=== PATIENT | female | born 1970 | race Caucasian/White ===

== ENCOUNTER 2016-12-06 01:35 | Inpatient (IN) | payer MEDICAID, MEDICARE ==
[2016-12-05] MEDS: SODIUM CHLOR 0.9% 1000 ML INJ 1,000 ML IV SCH (22:20)
[2016-12-06] VITALS (18 sets, daily range): BP systolic 114–195; BP diastolic 75–98; PULSE 115–167; RESP 18–20; TEMP 100.9–103.1; O2SAT 94–100
[~2016-12-06] VITALS: Ht 167.6 cm; Wt 74.0 kg
[2016-12-06] MEDS ORDERED: IOHEXOL 350 MG/ML 10 ML VIAL (for RAD DIAG) IVCONTRAST ONE (01:36)
[2016-12-06] MEDS ORDERED: ACETAMINOPHEN 650 MG SUPP RECTAL ONE (02:00)
[2016-12-06] MEDS ORDERED: SODIUM CHLOR 0.9% 1000 ML INJ 1,000 ML IV ONE ×2 (02:00→03:53)
[2016-12-06] MEDS ORDERED: VANCOMYCIN INJ 1,000 MG in SODIUM CHLOR 0.9% 250 ML INJ 250 ML IV ONE (02:00)
[2016-12-06] MEDS ORDERED: PIPERACIL-TAZO 3.375 GM PREMIX 50 ML IV ONE (02:00)
[2016-12-06 02:11] LABS: AUTOMATED NEUTROPHIL # 12.7 TH/MM3 (1.8-7.7); BASOPHIL # 0.1 TH/MM3 (0-0.2); BASOPHIL % 0.6 % (0.0-2.0); EOSINOPHIL # 0.1 TH/MM3 (0-0.4); EOSINOPHIL % 0.8 % (0.0-4.0); HEMATOCRIT 36.1 % (35.0-46.0); HEMO FLAGS DIFF FINAL; LYMPH % 9.1 % (9.0-44.0); LYMPHOCYTE # 1.4 TH/MM3 (1.0-4.8); MEAN CORPUSCULAR HEMOGLOBIN 23.8 PG (27.0-34.0); MONO % 3.9 % (0.0-8.0); NEUT % 85.6 % (16.0-70.0); PLATELET COUNT 346 TH/MM3 (150-450); RED BLOOD COUNT 4.69 MIL/MM3 (4.00-5.30); RED CELL DISTRIBUTION WIDTH 17.5 % (11.6-17.2); WHITE BLOOD COUNT 14.9 TH/MM3 (4.0-11.0)
--- NOTE | 2016-12-06 02:20 | PD ---
HPI Chief Complaint: Altered Mental Status Time Seen by Provider: 02:00 Travel History International Travel<30 days: No Contact w/Intl Traveler<30days: No Traveled to known affect area: No History of Present Illness HPI The patient is a 46 year old female who presents to the [facility] emergency department with a history of altered mentation that began yesterday evening. The patient is unable to provide any history as she is agitated and screaming. The patient was seen at [facility] according to ambulance services. The setter helper are not sure what the patient was diagnosed with, however the patient was discharged home. Ambulance services report that the patient has a history of recurrent urinary tract infections and becomes agitated and altered when she has one. The patient was noted to have a fever prior to arrival by ambulance services of 102.4. The patient's blood sugar was noted to be 115. The patient is unable or unwilling at this time to state her name or what her acute complaint is currently. The patient's family is reportedly on the way to the emergency department to provide some history. The patient's history is obtained from reviewing the electronic medical record as well as from ambulance services. Upon the patient's family's arrival they report that the patient has been altered since yesterday evening. They report that they went to the emergency department yesterday evening. The emergency department was unable to obtain IV access, therefore no laboratory studies were done. The patient's mentation seemed to be improving according to the family and the emergency department physician, therefore the patient was discharged home. An hour after arriving back home the patient became agitated and progressively confused. The patient' s family reports that this has happened 3 times in the past related to sepsis. 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 [facility] Past Medical History Narrative Medical the patient's past medical history is significant for multiple sclerosis, rheumatoid arthritis, history of sepsis related to urinary tract infections, osteoporosis, cerebrovascular accident, and anemia Medical History: Unable to Obtain ?: Unknown Past Surgical History Narrative Surgical The patient's past surgical history is significant for a history of cervical spine fusion Surgical History: Unable to Obtain Social History Alcohol Use: No (unable to obtain) Tobacco Use: No (unable to obtain) Substance Use: No Allergies-Medications (Allergen,Severity, Reaction): Coded Allergies: No Known Allergies (Unverified , 12/06/16) Review of Systems ROS Limitations: Poor Historian Except as stated in HPI: all other systems reviewed are Neg General / Constitutional: Positive: Fever Eyes: No: Visual changes HENT: No: Headaches Cardiovascular: No: Chest Pain or Discomfort Respiratory: No: Shortness of Breath Gastrointestinal: No: Abdominal Pain Genitourinary: No: Dysuria Musculoskeletal: No: Pain Skin: No Rash Neurologic: Positive: Change in Mentation, No: Weakness Psychiatric: No: Depression Endocrine: No: Polydipsia Hematologic/Lymphatic: No: Easy Bruising Physical Exam Narrative General: The patient is a well-developed well-nourished female, agitated on arrival, screaming, cursing. Head and Neck exam: Head is normocephalic atraumatic. Eyes: Pupils are equal round and reactive to light. The patient is noted to have ptosis of the left eyelid. The patient is uncooperative with extraocular motion testing, however she is moving her eyes with conjugate gaze all around the room Nose: Midline septum with pink mucous membranes Mouth: Dentition unremarkable. Tacky mucus membranes. Posterior oropharynx is not erythematous. No tonsillar hypertrophy. Uvula midline. Airway patent. Neck: No palpable lymphadenopathy. No nuchal rigidity. No thyromegaly. Cardiovascular: Sinus tachycardia in the 140s without murmurs, gallops, or rubs. No pulse deficit to the extremities and simultaneous auscultation and palpation of her radial artery. Lungs: Clear to auscultation bilaterally. No wheezes, rhonchi, or rales. Abdomen: Soft, with suprapubic prominence suspicious for bladder distention, no other tenderness on palpation of the other quadrants of the abdomen. Normal bowel sounds are audible. No guarding, rebound, or rigidity. No tenderness specifically on palpation of McBurney's point. Extremities: No clubbing, cyanosis, or edema. 2+ pulses in all 4 extremities. The patient has extremely dry skin on exam. The patient is noted to have an area of ulceration along the left lateral lower leg below the knee between the knee and the ankle that is 1 x 1.5 cm with a yellow discharge that was cultured. Back: No spinous process tenderness to palpation. The patient appears to have CVA tenderness bilaterally on examination. 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 The patient has ptosis of the left eyelid, some facial asymmetry with a prior history of stroke which ambulance services report that the patient has a history of. Skin Exam: Skin is warm and dry. Data Data Last Documented VS Vital Signs Date Time Temp Pulse Resp B/P (MAP) Pulse Ox O2 Delivery O2 Flow Rate FiO2 12/06/16 03:54 102.6 124 20 189/81 (117) 100 Room Air Orders Orders Electrocardiogram (12/06/16 02:00) Complete Blood Count With Diff (12/06/16 02:00) Comprehensive Metabolic Panel (12/06/16 02:00) Creatine Kinase (Cpk) (12/06/16 02:00) Ckmb (Isoenzyme) Profile (12/06/16 02:00) Troponin I (12/06/16 02:00) B-Type Natriuretic Peptide (12/06/16 02:00) Prothrombin Time / Inr (Pt) (12/06/16 02:00) Act Partial Throm Time (Ptt) (12/06/16 02:00) Blood Culture (12/06/16 02:00) C-Reactive Protein (Crp) (12/06/16 02:00) Lipase (12/06/16 02:00) Urinalysis - C+S If Indicated (12/06/16 02:00) Magnesium (Mg) (12/06/16 02:00) Ammonia (12/06/16 02:00) Thyroid Stimulating Hormone (12/06/16 02:00) Chest, Single Ap (12/06/16 02:00) Ct Brain W/O Iv Contrast(Rout) (12/06/16 02:00) Iv Access Insert/Monitor (12/06/16 02:00) Ecg Monitoring (12/06/16 02:00) Oximetry (12/06/16 02:00) Ed Urine Pregnancytest Poc (12/06/16 02:00) Drug Screen, Random Urine (12/06/16 02:00) Alcohol (Ethanol) (12/06/16 02:00) Lactic Acid Sepsis Protocol (12/06/16 02:00) Ct Abd/Pel W Iv Contrast(Rout) (12/06/16 ) Sodium Chlor 0.9% 1000 Ml Inj (Ns 1000 M (12/06/16 02:00) Acetaminophen Supp (Tylenol Supp) (12/06/16 02:00) Piperacil-Tazo 3.375 Gm Premix (Zosyn 3. (12/06/16 02:00) Vancomycin Inj (Vancomycin Inj) (12/06/16 02:00) Lorazepam Inj (Ativan Inj) (12/06/16 03:15) Iohexol 350 Inj (Omnipaque 350 Inj) (12/06/16 01:36) Sodium Chlor 0.9% 1000 Ml Inj (Ns 1000 M (12/06/16 03:53) Sodium Chlor 0.9% 1000 Ml Inj (Ns 1000 M (12/06/16 03:53) Admit Order (Ed Use Only) (12/06/16 04:22) Labs Laboratory Tests Test 12/06/16 01:55 12/06/16 02:10 12/06/16 04:06 White Blood Count 14.9 TH/MM3 Red Blood Count 4.69 MIL/MM3 Hemoglobin 11.2 GM/DL Hematocrit 36.1 % Mean Corpuscular Volume 77.0 FL Mean Corpuscular Hemoglobin 23.8 PG Mean Corpuscular Hemoglobin Concent 31.0 % Red Cell Distribution Width 17.5 % Platelet Count 346 TH/MM3 Mean Platelet Volume 7.7 FL Neutrophils (%) (Auto) 85.6 % Lymphocytes (%) (Auto) 9.1 % Monocytes (%) (Auto) 3.9 % Eosinophils (%) (Auto) 0.8 % Basophils (%) (Auto) 0.6 % Neutrophils # (Auto) 12.7 TH/MM3 Lymphocytes # (Auto) 1.4 TH/MM3 Monocytes # (Auto) 0.6 TH/MM3 Eosinophils # (Auto) 0.1 TH/MM3 Basophils # (Auto) 0.1 TH/MM3 CBC Comment DIFF FINAL Differential Comment Blood Urea Nitrogen 7 MG/DL Creatinine 0.57 MG/DL Random Glucose 109 MG/DL Total Protein 6.4 GM/DL Albumin 2.9 GM/DL Calcium Level 8.6 MG/DL Magnesium Level 1.5 MG/DL Alkaline Phosphatase 103 U/L Aspartate Amino Transf (AST/SGOT) 14 U/L Alanine Aminotransferase (ALT/SGPT) 15 U/L Total Bilirubin 0.3 MG/DL Sodium Level 134 MEQ/L Potassium Level 3.7 MEQ/L Chloride Level 102 MEQ/L Carbon Dioxide Level 21.3 MEQ/L Anion Gap 11 MEQ/L Estimat Glomerular Filtration Rate 114 ML/MIN Total Creatine Kinase 62 U/L Troponin I LESS THAN 0.02 NG/ML C-Reactive Protein 5.67 MG/DL B-Type Natriuretic Peptide 92 PG/ML Lipase 54 U/L Thyroid Stimulating Hormone 3rd Gen 3.820 uIU/ML Ethyl Alcohol Level LESS THAN 3 MG/DL Prothrombin Time 9.7 SEC Prothromb Time International Ratio 0.9 RATIO Activated Partial Thromboplast Time 25.0 SEC Urine Color LIGHT-YELLOW Urine Turbidity CLEAR Urine pH 7.5 Urine Specific [place] 1.004 Urine Protein 30 mg/dL Urine Glucose (UA) NEG mg/dL Urine Ketones 10 mg/dL Urine Occult Blood NEG Urine Nitrite NEG Urine Bilirubin NEG Urine Urobilinogen LESS THAN 2.0 MG/DL Urine Leukocyte Esterase NEG Urine RBC 4 /hpf Urine WBC 1 /hpf Urine Bacteria RARE /hpf Microscopic Urinalysis Comment CULT NOT INDICATED Lactic Acid Level 3.6 mmol/L 2.2 mmol/L Ammonia 17 MCMOL/L Urine Opiates Screen NEG Urine Barbiturates Screen NEG Urine Amphetamines Screen NEG Urine Benzodiazepines Screen NEG Urine Cocaine Screen NEG Urine Cannabinoids Screen NEG MDM Medical Decision Making Medical Screen Exam Complete: Yes Emergency Medical Condition: Yes Medical Record Reviewed: Yes Interpretation(s) Last Impressions Head CT 12/06/16199 Signed Impressions: Service Date/Time: Tuesday, December 06, 2016 03:15 - CONCLUSION: Motion degraded exam showing moderate white matter hypodensity of undetermined chronicity. Marcus Buchanan MD Chest X-Ray 12/06/16 020 Signed Impressions: Service Date/Time: Tuesday, December 06, 2016 01:56 - CONCLUSION: No acute cardiopulmonary disease Marcus Buchanan MD Neck Ultrasound 12/06/16 0000 Signed Impressions: Service Date/Time: Tuesday, December 06, 2016 08:06 - CONCLUSION: No abscess observed. Ultrasound evaluation for an abscess in this area is very difficult and an abscess can easily be occult by ultrasound evaluation. CT or MRI is more sensitive. Mukul Gary Jr., MD Abdomen/Pelvis CT 12/06/16 0000 Signed Impressions: Service Date/Time: Tuesday, December 06, 2016 03:21 - CONCLUSION: No definite acute CT findings in the abdomen or pelvis. Marcus Buchanan MD Differential Diagnosis Sepsis related encephalopathy, versus urinary tract infection, versus encephalitis, versus meningitis, versus pneumonia Narrative Course During the course of the patients emergency department visit, the patients history, examination, and differential diagnosis were reviewed with the patient. The patient had IV access obtained and blood work sent for analysis. The patient was placed on a front desk monitor with oximetry and blood pressure monitoring. A Ocampo catheter was placed to gravity due to and examination that was suspicious for urinary retention. The patient had an EKG done on arrival that shows a sinus tachycardia with short [place] interval, heart rate of 121, no acute ST segment elevation, nonspecific ST depression in V4, V5, V6. Blood cultures 2 were drawn, lactic acid was drawn as the patient meets Sirs criteria for a sepsis workup. A wound culture was collected from the infected ulcer on the left lateral leg. The patient was initially provided Tylenol [place] for fever, a normal saline 30 mL per KG IV fluid bolus per sepsis protocol, Zosyn 3.375 g IV, vancomycin 1 g IV. The patient was given Ativan 1 mg IV times one for acute agitation. The patients laboratory studies were reviewed and remarkable for white count of 14.9, hemoglobin 11.2, platelets 346 with 85.6 neutrophils, CMP is remarkable for sodium of 134, glucose 109, AST 14, CPK and troponin I are within normal limits, C-reactive protein 5.67, lipase 54, TSH a 3.82. PT 9.7, PTT 25, urine drug screen is negative, alcohol level less than 3, urinalysis shows 30 protein , 10 ketones, 4 rbc's, rare bacteria. Lactic acid is 3.6, BNP is 92, ammonia level is Radiology studies were reviewed and remarkable for a chest x-ray that shows no acute cardiopulmonary disease. CT scan of the brain shows motion degraded exam showing moderate white matter hypodensity of undetermined chronicity, CT scan of the abdomen and pelvis shows no acute findings. The patients results were discussed with the patient, including the plan of care. I explained that further testing and/ or monitoring is indicated based on the patients history, examination, and/ or laboratory findings. Therefore, I recommended admission for additional evaluation. The patient expressed understanding and was agreeable with this plan. The patient was admitted to the hospital in guarded condition and [facility] Critical Care Narrative Aggregate critical care time was 39 minutes. Time to perform other separately billable procedures was not included in the critical care time. My time did not include minutes spent treating any other patients simultaneously or on activities that did not directly contribute to the patient's treatment. The services I provided to this patient were to treat and/or prevent clinically significant deterioration that could result in: Respiratory failure from sedation, versus fluid overload from IV fluid resuscitation, versus cardiovascular collapse from sepsis I provided critical care services requiring my management, as noted below: Chart data review, documentation time, medication orders and management, vital sign assessments/reviewing monitor data, ordering and reviewing lab tests, ordering and interpreting/reviewing x-rays and diagnostic studies, care of the patient and discussion of the patient with the admitting physicians. Sepsis Criteria SIRS Criteria (2 or more): Temp > 100.9 or < 96.8, Heart rate over 90, WBC > 55186, < 4000 or > 10% bands Sepsis Criteria (SIRS+source): Infect source susp/known Severe Sepsis (+one): Lactate >2 Criteria Outcome: Meets SIRS criteria, Meets sepsis criteria, Meets severe sepsis criteria Physician Communication Physician Communication The patient's case was discussed with Dr. Whyte who did agree to admit the patient for further evaluation and treatment at this time. Diagnosis Primary Impression: Altered mental status Qualified Codes: R41.0 - Disorientation, unspecified Additional Impressions: Sepsis Qualified Codes: A41.9 - Sepsis, unspecified organism Infected stasis ulcer of left lower extremity Admitting Information Admitting Physician Requests: it Shy Briscoe MD Dec 06, 2016 02:20
[2016-12-06 02:25] LABS: BACTERIA, URINE RARE /hpf; BLOOD, URINE NEG (NEG); COMMENT (UR) CULT NOT INDICATED; CULTURE IF INDICATED CULT NOT INDICATED; GLUCOSE,URINE NEG (NEG); KETONE, URINE 10 mg/dL (NEG); NITRITE,URINE NEG (NEG); PH, URINE 7.5 (5.0-8.5); URINE COLOR LIGHT-YELLOW (YELLW/STRAW)
[2016-12-06 02:33] LABS: INTERNATIONAL NORMALIZED RATIO 0.9 RATIO; PROTHROMBIN TIME - PATIENT 9.7 SEC (9.8-11.6)
[2016-12-06 02:33] LABS: ALT (GPT) 15 U/L (10-53); ANION GAP 11 MEQ/L (5-15); AST (GOT) 14 U/L (15-37); BICARBONATE 21.3 MEQ/L (21.0-32.0); BLOOD UREA NITROGEN 7 MG/DL (7-18); CHLORIDE 102 MEQ/L (98-107); GLOMERULAR FILTRATION RATE 114 ML/MIN (>89); MAGNESIUM 1.5 MG/DL (1.5-2.5); POTASSIUM 3.7 MEQ/L (3.5-5.1); SODIUM (NA) 134 MEQ/L (136-145)
--- NOTE | 2016-12-06 02:34 | RADRPT ---
EXAM DATE/TIME: 12/06/2016 01:56 [facility] COMPARISON: No previous studies available for comparison. INDICATIONS : Shortness of breath. MEDICAL HISTORY : Unobtainable. SURGICAL HISTORY : Unobtainable. ENCOUNTER: Initial ACUITY: 1 day PAIN SCORE: Non-responsive. LOCATION: Bilateral chest FINDINGS: Minimal linear parenchymal opacity in the right midlung may be some scarring. Lungs otherwise clear. No effusion present. Cardiac contour is satisfactory for technique and projection. Severe arthritic c hanges are present in the spine and shoulders. There has been previous thoracic kyphoplasties and cer vical spine hardware fusion. CONCLUSION: No acute cardiopulmonary disease Marcus Buchanan MD on December 06, 2016 at 2:32 Board Certified Radiologist. This report was verified electronically.
[2016-12-06 02:37] LABS: ALCOHOL LESS THAN 3 MG/DL (0-5)
[2016-12-06 02:42] LABS: ALKALINE PHOSPHATASE 103 U/L (45-117); TOTAL BILIRUBIN ADULT 0.3 MG/DL (0.2-1.0)
[2016-12-06 02:47] LABS: CREATINE KINASE 62 U/L (26-192)
[2016-12-06] MEDS ORDERED: LORazepam 2 MG/ML VIAL IV PUSH ONE (03:15)
--- NOTE | 2016-12-06 03:31 | RADRPT ---
EXAM DATE/TIME: 12/06/2016 03:15 [facility] COMPARISON: No previous studies available for comparison. INDICATIONS : Altered mental status. RADIATION DOSE: 51.43 CTDIvol (mGy) MEDICAL HISTORY : None SURGICAL HISTORY : None. ENCOUNTER: Initial ACUITY: 1 day PAIN SCALE: Non-responsive LOCATION: cranial TECHNIQUE: Multiple contiguous axial images were obtained of the head. Using automated exposure control and adj ustment of the mA and/or kV according to patient size, radiation dose was kept as low as reasonably a chievable to obtain optimal diagnostic quality images. DICOM format image data is available electro nically for review and comparison. FINDINGS: The exam is degraded by patient motion. Motion artifact could obscure subtle hemorrhage. Grossly, the ventricles are symmetric and normal. There is symmetric periventricular white matter hyp odensity of undetermined chronicity. No definite brain mass. No focal findings to specifically sugges t acute infarction. There is hardware from cervical and occipital fusion. CONCLUSION: Motion degraded exam showing moderate white matter hypodensity of undetermined chronicity. Marcus Buchanan MD on December 06, 2016 at 3:27 Board Certified Radiologist. This report was verified electronically.
[2016-12-06] MEDS ORDERED: SODIUM CHLOR 0.9% 1000 ML INJ 800 ML IV ONE (03:53)
--- NOTE | 2016-12-06 04:00 | RADRPT ---
EXAM DATE/TIME: 12/06/2016 03:21 [facility] COMPARISON: No previous studies available for comparison. INDICATIONS : Fever with possible urinary tract infection. IV CONTRAST: 80 cc Omnipaque 350 (iohexol) IV ORAL CONTRAST: No oral contrast ingested. RADIATION DOSE: 15.81 CTDIvol (mGy) MEDICAL HISTORY : None SURGICAL HISTORY : None. ENCOUNTER: Initial ACUITY: 1 day PAIN SCALE: Non-responsive LOCATION: Bilateral abdomen TECHNIQUE: Volumetric scanning of the abdomen and pelvis was performed. Using automated exposure control and ad justment of the mA and/or kV according to patient size, radiation dose was kept as low as reasonably achievable to obtain optimal diagnostic quality images. DICOM format image data is available electro nically for review and comparison. FINDINGS: Study is mildly degraded by patient motion LOWER LUNGS: Mild basilar atelectasis LIVER: Homogeneous density without lesion. There is no dilation of the biliary tree. No calcified gallston es. SPLEEN: Normal size without lesion. PANCREAS: Within normal limits. KIDNEYS: Normal in size and shape. There is no mass, stone or hydronephrosis. ADRENAL GLANDS: Within normal limits. VASCULAR: There is no aortic aneurysm. BOWEL/MESENTERY: The stomach, small bowel, and colon demonstrate no acute abnormality. There is no free intraperitone al air or fluid. ABDOMINAL WALL: Within normal limits. RETROPERITONEUM: There is no lymphadenopathy. BLADDER: Decompressed with Ocampo catheter REPRODUCTIVE: Within normal limits. INGUINAL: There is no lymphadenopathy or hernia. MUSCULOSKELETAL: Thoracic kyphoplasties degenerative changes in the spine. Previous left total hip arthroplasty. Pelvi c fractures including right inferior pubic ramus and acetabular fractures with incomplete union. Comp ressive deformity involving the upper sacrum which appears healed. Healed rib fractures CONCLUSION: No definite acute CT findings in the abdomen or pelvis. Marcus Buchanan MD on December 06, 2016 at 3:41 Board Certified Radiologist. This report was verified electronically.
[2016-12-06 04:15] LABS: LACTIC ACID GHOST NOT REPORTABLE
[2016-12-06] MEDS ORDERED: SODIUM CHLORIDE 0.9% FLUSH 10 ML FLUSH IV FLUSH PRN ×2 (04:45→08:15)
[2016-12-06] MEDS ORDERED: NALOXONE HCL 0.4 MG/ML AMP IV PUSH PRN ×2 (04:45→08:15)
[2016-12-06] MEDS ORDERED: Vancomycin Consult Pharmacy 1 EA OTHER SCH (04:45)
--- NOTE | 2016-12-06 05:02 | HHI.HP ---
[facility] Admission Diagnosis Sepsis, cellulitis Diagnoses: Chief Complaint: ams Travel History International Travel<30 Days: No Contact w/Intl Traveler <30 Da: No Traveled to Known Affected Are: No History of Present Illness Written by NASIMA Quijano acting as scribe for [Isabell] on 12/06/16 at 05: 02. 46 y/o female with a history of DM, HTN, MS (not fully diagnosed), C DIFF and RA was brought to the ED with altered mental status. Patient does not answer questions she just screams and yells. Patient significant other is at the bedside and able to answer questions. Significant other states yesterday she was lethargic, didn't want to wake up to eat. Was taken to [facility] at first and she began to wake up, blood work was not obtained because they could not get an IV. She was then discharged home once she was not altered. 1 hour after getting home she started to yell and complaining she was cold, then she began to yell and not make much sense. Significant other states she complained of the right side of her head hurting, along with mouth and tongue for the last 2 weeks. She does have chronic diarrhea and nausea, not more than normal. She is immunocompromised due to the RA medications she is on. Patient screams even louder when neck is moved, family states she is always tender in her neck due to the hardware. She is on Cephalexin daily for prophylaxis for her cervical spine. Significant other states she behaved this way last time she was septic with c diff 1 year ago. Patient had abdominal distention upon arrival and a Barajas was placed. Patient is mostly wheel chair bound but is able to walk short distances. Review of Systems Except as stated in HPI: all other systems reviewed are Neg Past Family Social History Past Medical History DM HTN MS RA, immunocompromised Questionable CHF Osteoporosis Past Surgical History Cervical fusion 2007 Reported Medications pt's fiance only remembers names of meds- but not doses; daughter will bring list in am leflunomide prednisone bid dose metoprolol bid dose plavix cefalexin chronically due to hardware infection/ sepsis Current Medications Medications (Trade) Dose Ordered Sig/Fuentes Route Start Time Stop Time Status Last Admin Sodium Chloride 1,000 ml @ 1,000 mls/hr Q1H ONCE IV 12/06/16 03:53 12/06/16 04:52 12/06/16 04:13 (NS Flush) 2 ml UNSCH PRN IV FLUSH 12/06/16 04:45 (NS Flush) 2 ml BID IV FLUSH 12/06/16 09:00 (Narcan Inj) 0.4 mg UNSCH PRN IV PUSH 12/06/16 04:45 Pharmacy Profile Note 0 ml @ 0 mls/hr UNSCH OTHER 12/06/16 04:45 Piperacillin Sod/ Tazobactam Sod 100 ml @ 200 mls/hr Q6H IV 12/06/16 08:00 Allergies: Coded Allergies: hydromorphone (Verified Allergy, Unknown, 12/06/16) metformin (Verified Allergy, Unknown, 12/06/16) Active Ordered Medications Current Medications Medications (Trade) Dose Ordered Sig/Fuentes Route Start Time Stop Time Status Last Admin Sodium Chloride 1,000 ml @ 1,000 mls/hr Q1H ONCE IV 12/06/16 03:53 12/06/16 04:52 12/06/16 04:13 (NS Flush) 2 ml UNSCH PRN IV FLUSH 12/06/16 04:45 (NS Flush) 2 ml BID IV FLUSH 12/06/16 09:00 (Narcan Inj) 0.4 mg UNSCH PRN IV PUSH 12/06/16 04:45 Pharmacy Profile Note 0 ml @ 0 mls/hr UNSCH OTHER 12/06/16 04:45 Piperacillin Sod/ Tazobactam Sod 100 ml @ 200 mls/hr Q6H IV 12/06/16 08:00 Family History Mom: Breast cancer Dad: RA Social History Patient does not use tobacco, alcohol or illicit drug use. Physical Exam Vital Signs Vital Signs Date Time Temp Pulse Resp B/P (MAP) Pulse Ox O2 Delivery O2 Flow Rate FiO2 12/06/16 03:54 102.6 124 20 189/81 (117) 100 Room Air 12/06/16 01:49 102.4 144 12/06/16 01:39 167 20 114/77 (89) 94 Physical Exam GENERAL: This is a well-nourished, altered patient, screaming saying in pain, asking for daughter to help her, looks almost in psychotic break down SKIN: Bilateral lower extremity cellulitis, warm and red. Left lower extremity with yellow drain HEAD: Atraumatic. Normocephalic. Neck pain noted with movement EYES: Pupils equal round and reactive. Extraocular motions intact. ENT: Nose without bleeding, purulent drainage or septal hematoma.Neck with edema. Airway patent. NECK: Trachea midline. No JVD. CARDIOVASCULAR: Regular rate and rhythm without murmurs, gallops, or rubs. RESPIRATORY: Clear to auscultation. Breath sounds equal bilaterally. No wheezes , rales, or rhonchi. GASTROINTESTINAL: Abdomen soft, non-tender, nondistended. . No guarding. MUSCULOSKELETAL: Extremities without clubbing, cyanosis, or edema. No calf tenderness. NEUROLOGICAL: seems confused, awake and yelling. Motor and sensory grossly within normal limits. Laboratory Laboratory Tests Test 12/06/16 01:55 12/06/16 02:10 12/06/16 04:06 White Blood Count 14.9 Red Blood Count 4.69 Hemoglobin 11.2 Hematocrit 36.1 Mean Corpuscular Volume 77.0 Mean Corpuscular Hemoglobin 23.8 Mean Corpuscular Hemoglobin Concent 31.0 Red Cell Distribution Width 17.5 Platelet Count 346 Mean Platelet Volume 7.7 Neutrophils (%) (Auto) 85.6 Lymphocytes (%) (Auto) 9.1 Monocytes (%) (Auto) 3.9 Eosinophils (%) (Auto) 0.8 Basophils (%) (Auto) 0.6 Neutrophils # (Auto) 12.7 Lymphocytes # (Auto) 1.4 Monocytes # (Auto) 0.6 Eosinophils # (Auto) 0.1 Basophils # (Auto) 0.1 CBC Comment DIFF FINAL Differential Comment Blood Urea Nitrogen 7 Creatinine 0.57 Random Glucose 109 Total Protein 6.4 Albumin 2.9 Calcium Level 8.6 Magnesium Level 1.5 Alkaline Phosphatase 103 Aspartate Amino Transf (AST/SGOT) 14 Alanine Aminotransferase (ALT/SGPT) 15 Total Bilirubin 0.3 Sodium Level 134 Potassium Level 3.7 Chloride Level 102 Carbon Dioxide Level 21.3 Anion Gap 11 Estimat Glomerular Filtration Rate 114 Total Creatine Kinase 62 Troponin I LESS THAN 0.02 C-Reactive Protein 5.67 B-Type Natriuretic Peptide 92 Lipase 54 Thyroid Stimulating Hormone 3rd Gen 3.820 Ethyl Alcohol Level LESS THAN 3 Prothrombin Time 9.7 Prothromb Time International Ratio 0.9 Activated Partial Thromboplast Time 25.0 Urine Color LIGHT-YELLOW Urine Turbidity CLEAR Urine pH 7.5 Urine Specific [place] 1.004 Urine Protein 30 Urine Glucose (UA) NEG Urine Ketones 10 Urine Occult Blood NEG Urine Nitrite NEG Urine Bilirubin NEG Urine Urobilinogen LESS THAN 2.0 Urine Leukocyte Esterase NEG Urine RBC 4 Urine WBC 1 Urine Bacteria RARE Microscopic Urinalysis Comment CULT NOT INDICATED Lactic Acid Level 3.6 2.2 Ammonia 17 Urine Opiates Screen NEG Urine Barbiturates Screen NEG Urine Amphetamines Screen NEG Urine Benzodiazepines Screen NEG Urine Cocaine Screen NEG Urine Cannabinoids Screen NEG Date/Time Source Procedure Growth Status 12/06/16 02:00 Blood Peripheral Aerobic Blood Culture Pending Received 12/06/16 02:00 Blood Peripheral Anaerobic Blood Culture Pending Received Result Diagram: 12/06/1615412/06/16 015 Imaging Last Impressions Head CT 12/06/16 0200 Signed Impressions: Service Date/Time: Tuesday, December 06, 2016 03:15 - CONCLUSION: Motion degraded exam showing moderate white matter hypodensity of undetermined chronicity. Marcus Buchanan MD Chest X-Ray 12/06/16 020 Signed Impressions: Service Date/Time: Tuesday, December 06, 2016 01:56 - CONCLUSION: No acute cardiopulmonary disease Marcus Buchanan MD Abdomen/Pelvis CT 12/06/16 0000 Signed Impressions: Service Date/Time: Tuesday, December 06, 2016 03:21 - CONCLUSION: No definite acute CT findings in the abdomen or pelvis. Marcus Buchanan MD Caprini VTE Risk Assessment Caprini VTE Risk Assessment: Mod/High Risk (score >= 2) Caprini Risk Assessment Model Point Value = 1 Point Value = 2 Point Value = 3 Point Value = 5 Age 41-60 Minor surgery BMI > 25 kg/m2 Swollen legs Varicose veins or History of unexplained or recurrent spontaneous Oral contraceptives or hormone replacement Sepsis (< 1 month) Serious lung disease, including pneumonia (< 1 month) Abnormal pulmonary function Acute myocardial infarction Congestive heart failure (< 1 month) History of inflammatory bowel disease Medical patient at bed rest Age 61-74 Arthroscopic surgery Major open surgery (> 45 min) Laparoscopic surgery (> 45 min) Malignancy Confined to bed (> 72 hours) Immobilizing plaster cast Central venous access Age >= 75 History of VTE Family history of VTE Factor V Leiden Prothrombin 24329M Lupus anticoagulant Anticardiolipin antibodies Elevated serum homocysteine Heparin-induced thrombocytopenia Other congenital or acquired thrombophilia Stroke (< 1 month) Elective arthroplasty Hip, pelvis, or leg fracture Acute spinal cord injury (< 1 month) Prophylaxis Regimen Total Risk Factor Score Risk Level Prophylaxis Regimen 0-1 Low Early ambulation 2 Moderate Order ONE of the following: *Sequential Compression Device (SCD) *Heparin 5000 units SQ BID 3-4 Higher Order ONE of the following medications: *Heparin 5000 units SQ TID *Enoxaparin/Lovenox 40 mg SQ daily (WT < 150 kg, CrCl > 30 mL/min) *Enoxaparin/Lovenox 30 mg SQ daily (WT < 150 kg, CrCl > 10-29 mL/min) *Enoxaparin/Lovenox 30 mg SQ BID (WT < 150 kg, CrCl > 30 mL/min) AND/OR *Sequential Compression Device (SCD) 5 or more Highest Order ONE of the following medications: *Heparin 5000 units SQ TID (Preferred with Epidurals) *Enoxaparin/Lovenox 40 mg SQ daily (WT < 150 kg, CrCl > 30 mL/min) *Enoxaparin/Lovenox 30 mg SQ daily (WT < 150 kg, CrCl > 10-29 mL/min) *Enoxaparin/Lovenox 30 mg SQ BID (WT < 150 kg, CrCl > 30 mL/min) AND *Sequential Compression Device (SCD) Assessment and Plan Problem List: (1) Sepsis ICD Code: A41.9 - Sepsis, unspecified organism (2) Acute metabolic encephalopathy ICD Code: G93.41 - Metabolic encephalopathy (3) Cellulitis ICD Code: L03.90 - Cellulitis, unspecified Assessment and Plan 46 y/o female with a history of DM, HTN, MS (not fully diagnosed), C DIFF and RA was brought to the ED with altered mental status. Sepsis, wbc 14.9, lactic 3.6-->2.2, Tmax 102.4 source likely BLE cellulitis -Vancomycin and Zosyn IV antibiotics -CBC in AM -Cont IVF -Consult ID for recommendations -Neck soft tissue US ordered to r/o abscess -Blood cultures pending -3L NS given in ED; repeat lactate - pt also has chronic on and off diarrhea- will send stool if she makes diarrhea to check for cdiff due to her hx of cdiff sepsis Acute metabolic encephalopathy, due sepsis Head CT reviewed and shows white matter hypodensity, due to artifact unknown if chronic -Neuro checks Urinary retention, 1500 out when barajas placed UA normal Abdominal CT reviewed and shows no acute disease -Cont barajas and strict I&Os Chronic diarrhea, hx of c diff -C diff ordered RA, chronic -Patients daughter will bring list of medications in today to be resumed DVT prophylaxis: SCDs This note was transcribed by scribcarmen [Raina De Dios]. I, Dr. Yogesh Whyte personally performed the history, physical exam, and medical decision making; and confirmed the accuracy of the information in the transcribed note. Authenticated by Dr. Yogesh Whyte on 12/06/16 at 05:02. Discussed Condition With Patient, RN and Significant other Physician Certification 2 Midnight Certification Type: Admission for Inpatient Services Order for Inpatient Services The services are ordered in accordance with Medicare regulations or non- Medicare payer requirements, as applicable. In the case of services not specified as inpatient-only, they are appropriately provided as inpatient services in accordance with the 2-midnight benchmark. Estimated LOS (days): 3 days is the estimated time the patient will need to remain in the hospital, assuming treatment plan goals are met and no additional complications. Post-Hospital Plan: Home Problem Qualifiers (1) Sepsis: Qualified Codes: A41.9 - Sepsis, unspecified organism Raina De Dios Dec 06, 2016 05:02 Yogesh Whyte MD Dec 06, 2016 07:16
[2016-12-06] MEDS ORDERED: METOPROLOL TARTRATE 25 MG TAB PO ONE (06:30)
[2016-12-06] MEDS ORDERED: DILTIAZEM HCL 25 MG/5 ML VIAL IV ONE (06:45)
[2016-12-06] MEDS ORDERED: MAGNESIUM HYDROXIDE SUSP 30 ML CUP PO PRN (08:15)
[2016-12-06] MEDS ORDERED: ONDANSETRON HCL 4 MG/2 ML VIAL IVP PRN (08:15)
[2016-12-06] MEDS ORDERED: ACETAMINOPHEN 325 MG TAB PO PRN (08:15)
[2016-12-06] MEDS ORDERED: LACTULOSE SYRUP 20 GM/30 ML CUP PO PRN (08:15)
[2016-12-06] MEDS ORDERED: oxyCODONE/ACETAMINOPHEN 10 MG/325 MG TAB PO PRN ×2 (08:15→17:00)
[2016-12-06] MEDS ORDERED: BISACODYL 10 MG SUPP RECTAL PRN (08:15)
[2016-12-06] MEDS ORDERED: PROCHLORPERAZINE 25 MG SUPP RECTAL PRN (08:15)
[2016-12-06] MEDS ORDERED: oxyCODONE/ACETAMINOPHEN 5 MG/325 MG TAB PO PRN (08:15)
[2016-12-06] MEDS ORDERED: SENNOSIDES 8.6 MG TAB PO PRN (08:15)
[2016-12-06] MEDS ORDERED: MORPHINE SULFATE 4 MG/ML INJ IV PUSH PRN (08:15)
--- NOTE | 2016-12-06 08:49 | RADRPT ---
EXAM DATE/TIME: 12/06/2016 08:06 [facility] COMPARISON: No previous studies available for comparison. INDICATIONS : Evaluate for abscess in area of cervical spine hardware. MEDICAL HISTORY : Multiple sclerosis. Osteoporosis. Rheumatoid arthritis. Diabetes. HTN. CHF. History of infected hardw are. SURGICAL HISTORY : Cervical fusion. ENCOUNTER: Initial ACUITY: 1 day PAIN SCORE: 10/10 LOCATION: Neck. AREA EVALUATED: Right, left, lateral neck and posterior neck. FINDINGS: MASSES: None. FLUID COLLECTIONS: None. OTHER: Negative. CONCLUSION: No abscess observed. Ultrasound evaluation for an abscess in this area is very difficult and an absce ss can easily be occult by ultrasound evaluation. CT or MRI is more sensitive. Mukul Gary Jr., MD on December 06, 2016 at 8:46 Board Certified Radiologist. This report was verified electronically.
[2016-12-06] MEDS: PIPERACIL-TAZO 4.5 GM PREMIX 100 ML IV SCH ×3 (08:59→20:00)
[2016-12-06] MEDS ORDERED: SODIUM CHLORIDE 0.9% FLUSH 10 ML FLUSH IV FLUSH SCH (09:00)
[2016-12-06] MEDS: DOCUSATE SODIUM 50 MG/SENNA 8.6 MG TAB PO SCH ×2 (09:00→21:00)
[2016-12-06] MEDS: SODIUM CHLORIDE 0.9% FLUSH 10 ML FLUSH IV FLUSH SCH ×2 (09:03→21:00)
[2016-12-06] MEDS: SODIUM CHLOR 0.9% 1000 ML INJ 1,000 ML IV SCH ×3 (09:34→18:02)
--- NOTE | 2016-12-06 11:18 | PD.ID.CON ---
History of Present Illness Service ID Consult Requested By Reason for Consult Evaluation and Mment of Sepsis in IC pt, possible meningoencephalitis. Primary Care Physician Unknown Diagnoses: History of Present Illness is a 46 y/o CM with PMHx of DM2, HTN, ? 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 secondary to prednisone. All reported to me by significant other who knows her for last 6 years. She used to walk 6 years back then subsequently became wheel chair bound for trips. The patient is now in crippling pain secondary to RA constant neck pain inability to move neck. She sleeps in her wheel chair and has not slept in bed for years. Patient is mostly wheel chair bound but is able to walk short distances.With this background patient was brought to the ED with altered mental status. Patient does not answer questions she just screams and yells. Patient significant other is at the bedside and able to answer questions and appears reliable. Significant other states yesterday she was lethargic, didn't want to wake up to eat. Was taken to [email or web address] at first and she began to wake up , blood work was not obtained because they could not get an IV. She was then discharged home once she started waking up. She did have bilateral LE cellulitis and was asked to continue Keflex. Within an hour after getting home she started to yell and complaining she was cold, then she began to yell and not make much sense. Significant other states she complained of the right side of her head hurting, along with mouth and tongue for the last 2 weeks. She does have chronic diarrhea and nausea, not more than normal. Patient screams even louder when neck is moved, family states she is always tender in her neck due to the ? hardware. She is on Cephalexin daily for prophylaxis for her cervical spine. Significant other states she behaved this way last time she was septic with c diff 1 year ago. Patient had abdominal distention upon arrival and a Ocampo was placed. UO 1700 cc per chart. ID consulted for evaluation and Mment of sepsis in IC pt, r/o meningoencephalitis. Review of Systems ROS Limitations: Altered Mental Status Past Family Social History Allergies: Coded Allergies: hydromorphone (Verified Allergy, Unknown, 12/06/16) metformin (Verified Allergy, Unknown, 12/06/16) Past Medical History DM HTN MS RA, immunocompromised Questionable CHF Osteoporosis Past Surgical History Cervical fusion 2007 Reported Medications I attest that I obtained, reviewed or updated the home meds and current meds for name, dose, freq and route. pt's fiance only remembers names of meds- but not doses; daughter will bring list leflunomide prednisone bid dose metoprolol bid dose plavix cefalexin chronically due to hardware infection/ sepsis. Daughter provided this list of meds. Unable to determine if all these are active as patient is not completely oriented. Reported Meds & Active Scripts Active Reported Lantus Inj (Insulin Glargine) 1,000 Unit/10 Ml Vial 40 Units SQ HS Cephalexin 500 Mg Tab 500 Mg PO Q12H Leflunomide 20 Mg Tab 20 Mg PO DAILY Metoprolol Tartrate 50 Mg Tab 50 Mg PO BID Prednisone (48) 5 mg tab Dose Pack (Prednisone) 5 Mg Dspk 5 Mg PO BID Citalopram (Citalopram Hydrobromide) 20 Mg Tab 20 Mg PO DAILY Gabapentin 800 Mg Tab 800 Mg PO TID Baclofen 10 Mg Tab 10 Mg PO Q8HR PRN Oxycodone-Acetaminophen 10-325 mg Tab 1 Tab PO Q6H PRN Hydroxyzine HCl 50 Mg Tab 50 Mg PO BID PRN Ditropan (Oxybutynin Chloride) 5 Mg Tab 5 Mg PO Q12HR PRN Active Ordered Medications Current Medications Medications (Trade) Dose Ordered Sig/Fuentes Route Start Time Stop Time Status Last Admin (NS Flush) 2 ml UNSCH PRN IV FLUSH 12/06/16 04:45 (NS Flush) 2 ml BID IV FLUSH 12/06/16 09:00 12/06/16 09:03 Pharmacy Profile Note 0 ml @ 0 mls/hr UNSCH OTHER 12/06/16 04:45 Piperacillin Sod/ Tazobactam Sod 100 ml @ 200 mls/hr Q6H IV 12/06/16 08:00 12/06/16 08:59 (Cardizem Inj) 15 mg Q4H PRN IV 12/06/16 06:45 (Cardizem Inj) 20 mg Q8H IV 12/06/16 14:00 Sodium Chloride 1,000 ml @ 100 mls/hr Q10H IV 12/06/16 08:02 12/06/16 09:34 (Tylenol) 650 mg Q4H PRN PO 12/06/16 08:15 (Zofran Inj) 4 mg Q6H PRN IVP 12/06/16 08:15 (Compazine Supp) 25 mg Q12H PRN RECTAL 12/06/16 08:15 (Tylenol) 650 mg Q6H PRN PO 12/06/16 08:15 (Percocet 5-325 Mg) 1 tab Q6H PRN PO 12/06/16 08:15 (Percocet 10-325 Mg) 1 tab Q6H PRN PO 12/06/16 08:15 (Morphine Inj) 2 mg Q3H PRN IV PUSH 12/06/16 08:15 12/06/16 09:35 (Morphine Inj) 4 mg Q3H PRN IV PUSH 12/06/16 08:15 12/06/16 13:07 (Narcan Inj) 0.4 mg UNSCH PRN IV PUSH 12/06/16 08:15 (Shaylee-Colace) 1 tab BID PO 12/06/16 09:00 (Milk Of Magnesia Liq) 30 ml Q12H PRN PO 12/06/16 08:15 (Senokot) 17.2 mg Q12H PRN PO 12/06/16 08:15 (Dulcolax Supp) 10 mg DAILY PRN RECTAL 12/06/16 08:15 (Lactulose Liq) 30 ml DAILY PRN PO 12/06/16 08:15 Vancomycin HCl 1250 mg/Sodium Chloride 262.5 ml @ 250 mls/hr Q12H IV 12/06/16 12:00 12/06/16 12:01 Miscellaneous Information SPECIFIC LAB TO BE DRAWN:VANCOMYCIN TROUGH DATE TO... ONCE ONCE .XX 12/07/16 11:45 12/07/16 11:46 (Lopressor Inj) 5 mg Q6H PRN IV PUSH 12/06/16 13:00 12/06/16 12:59 (Levemir Inj) 30 units HS SQ 12/06/16 21:00 UNV (Tylenol Supp) 650 mg Q6H PRN RECTAL 12/06/16 13:30 UNV (Lopressor) 50 mg Q12HR PO 12/06/16 21:00 UNV Family History could not be obtained. significant other only at bedside. Pts daughter healthy per his report. Social History Lives with significant other, has a 22 yr old daughter that lives with them. Ex is a chefs and helps out the daughter over phone from somewhere in [place]. No alcohol, no smoking, no illicit drugs. Physical Exam Vital Signs Vital Signs Date Time Temp Pulse Resp B/P (MAP) Pulse Ox O2 Delivery O2 Flow Rate FiO2 12/06/16 10:57 128 18 156/79 (104) 99 12/06/16 09:04 124 18 160/75 (103) 100 Room Air 12/06/16 07:46 128 18 166/79 (108) 100 Room Air 12/06/16 05:25 101.6 121 20 195/84 (121) 99 Room Air 12/06/16 03:54 102.6 124 20 189/81 (117) 100 Room Air 12/06/16 01:49 102.4 144 12/06/16 01:39 167 20 114/77 (89) 94 Physical Exam GENERAL: Obese, Cushingoid appearing patient, in significant distress due to pain possibly. No cardiopulm distress. SKIN: Bilateral LE with erythema, induration. Left side leg with 2 ulcerations noted and some active discharge. Joints with significant deformities antwan of upper extremities. Upper extremity again difficult to assess but area of chronic scabbing with surrounding erythema. HEAD: Atraumatic. Normocephalic. No temporal or scalp tenderness. EYES: Pupils equal round and reactive. Extraocular motions intact. No scleral icterus. No injection or drainage. ENT: Nose without bleeding, purulent drainage. Mouth with significant erythema s.o mucositis. Patient would not open her mouth and jerked my hand. NECK: Trachea midline. Large neck. No lymphadenopathy. Supple, tender, ? neck stiffness: difficult to assess accurately as even on touching her neck which appeared stiff she would writhing in pain and jerked my hand off. CARDIOVASCULAR: Regular rate and rhythm without murmurs. RESPIRATORY: Clear to auscultation. Breath sounds equal bilaterally. No wheezes , rales, or rhonchi. GASTROINTESTINAL: Abdomen soft, non-tender, nondistended. MUSCULOSKELETAL: Extremities without clubbing, cyanosis, or edema. Rest as described under skin section. NEUROLOGICAL: Awake and alert. ? orientation. Did not follow commands for me. Psych: appears very uncomfortable, anxious. Screaming and yelling "hurry up". Difficult to comprehend what she was trying to say. IV line sites with no e.o infection. Laboratory Laboratory Tests Test 12/06/16 01:55 12/06/16 02:10 12/06/16 04:06 12/06/16 06:21 White Blood Count 14.9 Red Blood Count 4.69 Hemoglobin 11.2 Hematocrit 36.1 Mean Corpuscular Volume 77.0 Mean Corpuscular Hemoglobin 23.8 Mean Corpuscular Hemoglobin Concent 31.0 Red Cell Distribution Width 17.5 Platelet Count 346 Mean Platelet Volume 7.7 Neutrophils (%) (Auto) 85.6 Lymphocytes (%) (Auto) 9.1 Monocytes (%) (Auto) 3.9 Eosinophils (%) (Auto) 0.8 Basophils (%) (Auto) 0.6 Neutrophils # (Auto) 12.7 Lymphocytes # (Auto) 1.4 Monocytes # (Auto) 0.6 Eosinophils # (Auto) 0.1 Basophils # (Auto) 0.1 CBC Comment DIFF FINAL Differential Comment Blood Urea Nitrogen 7 Creatinine 0.57 Random Glucose 109 Total Protein 6.4 Albumin 2.9 Calcium Level 8.6 Magnesium Level 1.5 Alkaline Phosphatase 103 Aspartate Amino Transf (AST/SGOT) 14 Alanine Aminotransferase (ALT/SGPT) 15 Total Bilirubin 0.3 Sodium Level 134 Potassium Level 3.7 Chloride Level 102 Carbon Dioxide Level 21.3 Anion Gap 11 Estimat Glomerular Filtration Rate 114 Total Creatine Kinase 62 Troponin I LESS THAN 0.02 C-Reactive Protein 5.67 B-Type Natriuretic Peptide 92 Lipase 54 Thyroid Stimulating Hormone 3rd Gen 3.820 Ethyl Alcohol Level LESS THAN 3 Prothrombin Time 9.7 Prothromb Time International Ratio 0.9 Activated Partial Thromboplast Time 25.0 Urine Color LIGHT-YELLOW Urine Turbidity CLEAR Urine pH 7.5 Urine Specific [place] 1.004 Urine Protein 30 Urine Glucose (UA) NEG Urine Ketones 10 Urine Occult Blood NEG Urine Nitrite NEG Urine Bilirubin NEG Urine Urobilinogen LESS THAN 2.0 Urine Leukocyte Esterase NEG Urine RBC 4 Urine WBC 1 Urine Bacteria RARE Microscopic Urinalysis Comment CULT NOT INDICATED Lactic Acid Level 3.6 2.2 1.5 Ammonia 17 Urine Opiates Screen NEG Urine Barbiturates Screen NEG Urine Amphetamines Screen NEG Urine Benzodiazepines Screen NEG Urine Cocaine Screen NEG Urine Cannabinoids Screen NEG Date/Time Source Procedure Growth Status 12/06/16 02:00 Blood Peripheral Aerobic Blood Culture Pending Received 12/06/16 02:00 Blood Peripheral Anaerobic Blood Culture Pending Received 12/06/16 06:20 Wound Leg Gram Stain Pending Received 12/06/16 06:20 Wound Leg Wound Culture Pending Received Result Diagram: 12/06/1615412/06/16154 Imaging Last Impressions Head CT 12/06/16199 Signed Impressions: Service Date/Time: Tuesday, December 06, 2016 03:15 - CONCLUSION: Motion degraded exam showing moderate white matter hypodensity of undetermined chronicity. Marcus Buchanan MD Chest X-Ray 12/06/16199 Signed Impressions: Service Date/Time: Tuesday, December 06, 2016 01:56 - CONCLUSION: No acute cardiopulmonary disease Marcus Buchanan MD Neck Ultrasound 12/06/16 0000 Signed Impressions: Service Date/Time: Tuesday, December 06, 2016 08:06 - CONCLUSION: No abscess observed. Ultrasound evaluation for an abscess in this area is very difficult and an abscess can easily be occult by ultrasound evaluation. CT or MRI is more sensitive. Mukul Gary Jr., MD Abdomen/Pelvis CT 12/06/16 0000 Signed Impressions: Service Date/Time: Tuesday, December 06, 2016 03:21 - CONCLUSION: No definite acute CT findings in the abdomen or pelvis. Marcus Buchanan MD Assessment and Plan Assessment and Plan Severe Sepsis present on admission. Possible meningoencephalitis, has a reported hardware in neck or had it and was removed. ? Epidural abscess/Spine Osteomyelitis. Cellulitis bilateral LE. Immune compromised. RA on Prednisone and leflunomide. Acute encephalopathy: infection, sepsis. Recs: Check Influenza antigen Check MRI brain Check MRI C spine. Check 2D ECHO Consider stress dose steroids as pt appears Cushingoid and is in sepsis. Reviewed available imaging. Continue Zosyn IV Continue Vanco IV (MRSA bacteremia or meningitis) Start Ampicillin IV (r/o Listeria monocytogenes meningitis,bacteremia) Start oral acyclovir. LP orders entered. Check CSF HSV PCR Check CSF VDRL Check CSF STANISLAW virus (Immune compromised on [facility] steroids) Check Hepatitis panel. Check HIV antibody screen. Consult Neurology. Follow cultures Follow clinically. Acutely ill high risk for decompensation. Difficult intubation. Reviewed with significant other: she used to have living will with Mom and daughter as the persons listed for health care proxy but she got upset and reportedly this changed. Consult palliative care to address goals of therapy and health care proxy documents etc. Time spent in excess of 80 mins. Critical thinking, decision making. Priscilla Corey MD Dec 06, 2016 11:17
[2016-12-06] MEDS: VANCOMYCIN INJ 1,250 MG in SODIUM CHLOR 0.9% 250 ML INJ 250 ML IV SCH (12:01)
[2016-12-06] MEDS: METOPROLOL TARTRATE 5 MG/5 ML VIAL IV PUSH PRN (12:59)
[2016-12-06] MEDS: MORPHINE SULFATE 4 MG/ML INJ IV PUSH PRN ×2 (13:07→16:27)
[2016-12-06] MEDS ORDERED: ACETAMINOPHEN 650 MG SUPP RECTAL PRN ×2 (13:30→14:45)
[2016-12-06] MEDS: DILTIAZEM HCL 25 MG/5 ML VIAL IV SCH ×2 (14:25→22:00)
--- NOTE | 2016-12-06 14:41 | EKG ---
Date Performed: 12/06/2016 Time Performed: 09:29:28 PTAGE: 46 years EKG: SINUS TACHYCARDIA POSSIBLE INFERIOR MYOCARDIAL INFARCTION ST CHANGES LATERALLY, POSSIBLE IS CHEMIC IN NATURE ABNORMAL ECG PREVIOUS TRACING : 12/06/2016 02.37 Compared to prior tracing no significant change DOCTOR: Bernard Rea Interpretating Date/Time 12/06/2016 14:39:36
[2016-12-06] MEDS ORDERED: HYDR50TA94 PO (14:50)
[2016-12-06] MEDS ORDERED: LANTUS2P SQ (14:50)
[2016-12-06] MEDS ORDERED: CEPH500T PO (14:50)
[2016-12-06] MEDS ORDERED: OXYC1TAB36 PO (14:50)
[2016-12-06] MEDS ORDERED: CITA20TA4 PO (14:50)
[2016-12-06] MEDS ORDERED: OXYB5TAB10 PO (14:50)
[2016-12-06] MEDS ORDERED: LEFL1TAB3 PO (14:50)
[2016-12-06] MEDS ORDERED: METO50TA PO (14:50)
[2016-12-06] MEDS ORDERED: GABA800T PO (14:50)
[2016-12-06] MEDS ORDERED: PRED5PAK2 PO (14:50)
[2016-12-06] MEDS ORDERED: BACL10TA PO (14:50)
--- NOTE | 2016-12-06 15:02 | EKG ---
Date Performed: 12/06/2016 Time Performed: 02:37:15 PTAGE: 46 years EKG: SINUS TACHYCARDIA WITH SHORT RI INTERVAL MODERATE ST DEPRESSION ABNORMAL ECG NO PREVIOUS TRACING DOCTOR: Bernard Rea Interpretating Date/Time 12/06/2016 15:01:34
[2016-12-06] MEDS: ACETAMINOPHEN 325 MG TAB PO PRN (15:06)
--- NOTE | 2016-12-06 15:13 | OTSOAPIP ---
TIME SESSION COMPLETED: 1500 TREATMENT TIME: 0 MINS. CHART REVIEWED. RECEIVED OCCUPATIONAL THERAPY ORDERS. ATTEMPTED TO SEE PATIENT, HOWEVER UPON ARRIVAL PATIENT PRESENTED FEBRILE WITH INCREASED AGITATION AND SEVERE ALTERED MENTAL STATUS. PATIENT'S RN ANNIE REQUESTS TO HOLD EVALUATION THIS DATE. WILL REATTEMPT EVALUATION TOMORROW. INTERDISCIPLINARY COMMUNICATION: REVIEWED ELECTRONIC MEDICAL RECORD, SPOKE WITH ELISEO VALENCIA Therapist: Marley Padron, OTR/L Signature on file
[2016-12-06] MEDS ORDERED: FLUCONAZOLE 100 MG PREMIX BAG 50 ML IV SCH (16:00)
--- NOTE | 2016-12-06 16:48 | RADRPT ---
EXAM DATE/TIME: 12/06/2016 15:52 [facility] COMPARISON: No previous studies available for comparison. INDICATIONS : Patient with altered mental status in need of lumbar puncture. MEDICAL HISTORY : HTN, Diabetes, MS(not fully diagnosed), C-Diff, RA, Osteoporosis, Questionable CHF SURGICAL HISTORY : Cervical fusion 2007 ENCOUNTER: Initial ACUITY: 1 day PAIN SCORE: Non-responsive LUMBAR PUNCTURE TIME: 1552 hours FLUORO TIME: 0.6 minutes IMAGE SERIES: 0 ACCESS LEVEL: L3-4 OPENING PRESSURE: 35 cm of water CLOSING PRESSURE: Not requested. FLUID: 10 cc of clear CSF was collected and sent to the laboratory for analysis. PROCEDURE : 1. Fluoroscopic guided lumbar puncture. 2. Recording of opening pressure. The risks, benefits and alternatives to the procedure were explained and verbal and written consent w as obtained. The site was prepped in sterile fashion. Full sterile technique was used, including ca p, mask, sterile gloves and gown and a large sterile sheet. Hand hygiene and 2% chlorhexidine and/or betadine/alcohol prep was utilized per protocol for cutaneous antisepsis. The skin and subcutaneous tissues were infiltrated with local anesthetic solution. With fluoroscopic guidance the lumbar thecal sac was punctured at the above level described above and the opening pressure was recorded. The above described fluid was removed without difficulty. The patient tolerated the procedure well and there were no complications. CONCLUSION: Uncomplicated fluoroscopically guided lumbar puncture with pressures as above. Rg Paz MD on December 06, 2016 at 16:47 Board Certified Radiologist. This report was verified electronically.
[2016-12-06] MEDS ORDERED: BACLOFEN 10 MG TAB PO PRN (17:00)
[2016-12-06] MEDS ORDERED: hydrOXYzine HCL 50 MG TAB PO PRN (17:00)
[2016-12-06] MEDS ORDERED: AMPICILLIN INJ 2,000 MG in SODIUM CHLORIDE 0.9% INJ 100 ML IV SCH (17:00)
[2016-12-06] MEDS ORDERED: OXYBUTYNIN CHLORIDE 5 MG TAB PO PRN (17:00)
--- NOTE | 2016-12-06 17:01 | HHI.HCPN ---
Palliative care consulted to assist with goals of care and identifying legal decision maker. Met with patient's mother and daughter in 2nd floor waiting room. They provided the following psychosocial information: * Ms. Harris likes to be called "Di" * Originally from [place], lived in [place] for some time (majority of her surgeries took place here). 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 She confirms desire to serve in this role. She is supported by Ms. Harris's mother, father, and mini Medical Hx * Originally dx with RA at the age of 16, has been on steroids since dx * Family reports over time her body has rejected all medications. * Diabetic * Osteoporosis * Hip replacement 10+ years ago * 1st neck surgery/fusion 15 years ago * Neck reconstruction surgery 9 years ago (C1 to T4 fusion) * During this surgery she spent 6 months in the hospital with multiple complications (MRSA, C DIFF) * Recently patient complaining of swollen tongue and family noticed some changes in speech and tongue control * Around this time was undergoing work-up for MS, had 2 MRIs identifying MS but never had the spinal tap to dx (patient has a hx of anxiety with anything involving her neck and spine given hx of above) * Ms. Harris has had the majority of her recent care at [facility] and [facility] should records be needed * In the past 5 years Ms. Harris has had two similar episodes (1- C DIFF, 2- UTI ) both presenting similar to presentation on this admission * Reportedly mostly compliant with medical treatment, does have some guilt regarding daughter having to take off work to take her to medical appointments as patient is unable to drive herself Gently discussed CODE STATUS with patient's daughter and mother. Daughter becomes tearful and reports "I know she wouldn't want to be on a breathing machine". Mother agrees. They request time to process over night and will further clarify CODE STATUS when meeting with palliative care tomorrow. Should her condition change overnight they request to be notified prior to any change in care given feelings above. Palliative care to meet with family tomorrow, 12/07/16 at 11am. Michelle Gary, TYPE CASTING MACHINE OPERATOR Dec 06, 2016 17:01
[2016-12-06 17:08] LABS: LACTIC ACID,CSF 3.7 MMOL/L (0.0-3.0)
[2016-12-06] MEDS: ACYCLOVIR INJ 600 MG in SODIUM CHLORIDE 0.9% INJ 100 ML IV SCH (17:16)
[2016-12-06 17:49] LABS: CSF LYMPHOCYTES 32 %; CSF MONOCYTES 68 %
[2016-12-06 18:00] LABS: GROSS BLOOD TUBE #1 0 (0); GROSS BLOOD TUBE #2 0 (0); SUPERNATE COLOR TUBE #1 CLEAR (CLEAR); SUPERNATE COLOR TUBE #2 CLEAR (CLEAR); VOLUME TUBE # 1 3.5 ML; VOLUME TUBE # 2 2.5 ML
[2016-12-06] MEDS: GABAPENTIN 400 MG CAP PO SCH (18:00)
[2016-12-06 18:01] LABS: CSF NEUTROPHILS 0 %; SUPERNATE COLOR TUBE #3 CLEAR (CLEAR); SUPERNATE COLOR TUBE #4 CLEAR (CLEAR); VOLUME TUBE # 4 2.5 ML; WBC TUBE #4 15 /MM3 (0-10)
[2016-12-06 18:05] LABS: CKMB 1.5 NG/ML (0.5-3.6)
[2016-12-06] MEDS: AMPICILLIN INJ 2,000 MG in SODIUM CHLORIDE 0.9% INJ 100 ML IV SCH ×2 (18:26→22:00)
[2016-12-06] MEDS: FLUCONAZOLE 100 MG PREMIX BAG 50 ML IV SCH (19:14)
--- NOTE | 2016-12-06 20:24 | RADRPT ---
EXAM DATE/TIME: 12/06/2016 20:04 [facility] COMPARISON: No previous studies available for comparison. INDICATIONS : Left hand pain and swelling. MEDICAL HISTORY : None. SURGICAL HISTORY : Left hand bone fusions. ENCOUNTER: Initial ACUITY: 1 day PAIN SCORE: 10/10 LOCATION: Left hand. FINDINGS: There is diffuse osteopenia throughout the entire hand and wrist. There is extensive arthritic change s involving essentially all the joints of the hand and wrist. There has been resorption of the distal ulnar. Rheumatoid arthritis is the primary consideration. No definite acute fracture or joint disloc ation. CONCLUSION: Extensive arthritis throughout the hand and wrist. Kenroy Luong MD on December 06, 2016 at 20:21 Board Certified Radiologist. This report was verified electronically.
[2016-12-06] MEDS ORDERED: ATROPINE SULFATE 1 MG/10 ML SYRINGE ONE (20:46)
[2016-12-06] MEDS ORDERED: EPINEPHrine HCL (1:10,000) 1 MG/10 ML SYRINGE ONE (20:46)
[2016-12-06] MEDS: INSULIN DETEMIR 100 UNITS/ML VIAL SQ SCH (21:00)
[2016-12-06] MEDS: METOPROLOL TARTRATE 50 MG TAB PO SCH (21:00)
--- NOTE | 2016-12-06 21:45 | MB ---
cc: MARLON NUNEZ DATE OF CONSULTATION 12/06/2016 HISTORY A 46-year-old woman who was evidently down in [facility] and was confused. Evidently has confusion with UTIs. History of diabetes, hypertension, questionable MS, C. Difficile, rheumatoid arthritis. She was screaming and yelling. She just had an LP. She has got some morphine. Possibly immunocompromised due to the medications for rheumatoid arthritis. Cervical fusion in 2007. I am asked to see her for mental status change. MEDICATIONS AT HOME 1. Prednisone twice a day. 2. Metoprolol. 3. Plavix. 4. Cephalexin chronically due to hardware infection sepsis. 5. Leflunomide. ALLERGIES NO KNOWN DRUG ALLERGIES. FAMILY HISTORY Positive breast cancer in her father. Rheumatoid arthritis. SOCIAL HISTORY Not a smoker or drinker. No drug use. MEDICATIONS Current meds: 1. She is on insulin. 2. Lopressor. 3. Fluconazole. 4. Acyclovir. 5. Ampicillin. 6. Diltiazem. 7. Metoprolol. 8. Vancomycin. 9. Morphine. She has gotten at last 6 mg of morphine today. 10. Percocet. 11. Lactulose. PHYSICAL EXAMINATION VITAL SIGNS: 103.l, pulse of 128, 18, 172/98. NECK: There are no carotid bruits. HEART: Regular rhythm. I do not detect a murmur. NEUROLOGIC: Pupils are equal. There is a little bit of a left ptosis but she says this is old. Her tongue is midline. Face is symmetrical. She moves all of her extremities well, though appears to have rheumatoid arthritis changes in the hands bilaterally and somewhat in the feet. It looks like she may have some peripheral vascular disease, some slight atrophy of the feet. Some stiffness of the legs in general. The toes are downgoing bilaterally. She seems to feel discomfort throughout. Neck seemed to be a little bit painful, although she has pain all over. When you touch her anywhere she seems to be painful. She will not tell me the year. She can tell me her name. When I ask her if she has rheumatoid arthritis she says yes. When I ask her if she is a man she says no. She falls asleep easily but just given morphine. LABORATORY DATA CBC white count 14.9, hematocrit is 36, platelet count 346. LP was just performed and is pending. Urine drug screen was negative. UA is negative. Coags were normal. Lactic acid 1.5. Ammonia level normal. Basic metabolic profile essentially normal. LFTs normal. CPK 62. Troponin negative. CRP 5.6. TSH little bit high. Lipase low. Albumin 2.9. IMAGING Had a CT scan of her brain shows some white matter changes bilaterally. IMPRESSION Some confusion. We will see what the LP shows. I would check an MRI of the brain and EEG. I would hold her sedatives at this time, see if we can get her more awake considering the high fever. She has had blood cultures done. In case she could have meningitis I would transfer her to the ICU to watch for any seizure activity. I will follow in the hospital. We will check a rheumatoid factor, check an echocardiogram and make sure there is no endocarditis. MD SANDRA Keller/KARSTEN /4:38 PM /9:16 PM
--- NOTE | 2016-12-06 21:54 | RADRPT ---
EXAM DATE/TIME: 12/06/2016 21:13 [facility] COMPARISON: No previous studies available for comparison. INDICATIONS : Abscess. MEDICAL HISTORY : Diabetes mellitus type 2. Multiple sclerosis. SURGICAL HISTORY : Fusion, cervical. Bilateral hand and feet sx, left hip replacment. ENCOUNTER: Initial ACUITY: 1 day PAIN SCORE: 4/10 LOCATION: Bilateral cranial TECHNIQUE: Multiplanar, multisequence MRI of the brain was performed without contrast. FINDINGS: CEREBRUM: The ventricles are normal for age. There is bilateral cortical atrophy. No evidence of midline shift, mass lesion, hemorrhage or acute infarction. No extraaxial fluid collections are seen. The pituita ry gland and suprasellar cistern are normal in configuration. WHITE MATTER: There is chronic white matter changes bilaterally. POSTERIOR FOSSA: The cerebellum and brainstem are intact. There appears to be an old infarct in the left cerebellar h emisphere. The 4th ventricle is midline. The cerebellopontine angle is unremarkable. The cerebellar tonsils are normal in position. DIFFUSION IMAGING: No focal areas of restricted diffusion are seen. No evidence of acute infarction. EXTRACRANIAL: The visualized portions of the orbits and paranasal sinuses are unremarkable. CONCLUSION: 1. Chronic nonspecific white matter changes bilaterally and bilateral cortical atrophy.. 2. 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 Kenroy Luong MD on December 06, 2016 at 21:50 Board Certified Radiologist. This report was verified electronically.
--- NOTE | 2016-12-06 22:18 | RADRPT ---
EXAM DATE/TIME: 12/06/2016 21:13 [facility] COMPARISON: No previous studies available for comparison. INDICATIONS : Vasculitis MEDICAL HISTORY : Diabetes mellitus type 2. Multiple sclerosis. SURGICAL HISTORY : Fusion, cervical. Bilateral hand and feet sx., left hip sx. ENCOUNTER: Initial ACUITY: 1 day PAIN SCORE: 6/10 LOCATION: Bilateral cranial Please note a normal MRA of the brain does not entirely exclude the possibility of a small aneurysm, nor the possibility of distal intracranial vessel disease. TECHNIQUE: 3D time of flight MRA was performed. Source images, multiplanar STS MIP, and 3D volume MIP reconstru ctions were reviewed. FINDINGS: There is excellent visualization of the major intracranial arteries out to the second-order branch ve ssels. There is no evidence for aneurysm, vessel truncation or stenosis, and no evidence for vascula r malformation. CONCLUSION: Normal examination for a patient of this age. Kenroy Luong MD on December 06, 2016 at 22:15 Board Certified Radiologist. This report was verified electronically.
--- NOTE | 2016-12-06 22:23 | RADRPT ---
EXAM DATE/TIME: 12/06/2016 21:13 [facility] COMPARISON: CT BRAIN W/O CONTRAST, December 06, 2016, 3:15. INDICATIONS : Abscess. MEDICAL HISTORY : Diabetes mellitus type 2. SURGICAL HISTORY : Fusion, cervical. ENCOUNTER: Initial ACUITY: 1 day PAIN SCORE: 5/10 LOCATION: Bilateral neck region. TECHNIQUE: Multiplanar, multisequence MRI examination of the cervical spine was performed. FINDINGS: Extremely limited MRI of the cervical spine. There is extensive hardware involving the cervical spine causing dropout of signal. On the images presented, the alignment of the cervical spine appears to b e within normal limits. The lower cervical bodies are grossly intact. Images of the spinal cord are g rossly unremarkable. There is limited evaluation of the spinal canal without any definite evidence of significant spinal canal stenosis. No definite loculated fluid collections are seen to suggest an ab scess. However, this is a noncontrast study which limits the evaluation for an abscess. CONCLUSION: Extremely limited MRI of the cervical spine. Kenroy Luong MD on December 06, 2016 at 22:17 Board Certified Radiologist. This report was verified electronically.
--- NOTE | 2016-12-06 22:25 | RADRPT ---
EXAM DATE/TIME: 12/06/2016 21:13 [facility] COMPARISON: No previous studies available for comparison. INDICATIONS : Confusion, clot. MEDICAL HISTORY : Diabetes mellitus type 2. SURGICAL HISTORY : Fusion, cervical. ENCOUNTER: Initial ACUITY: 1 day PAIN SCORE: 5/10 LOCATION: Bilateral cranial Please note a normal MRA of the brain does not entirely exclude the possibility of a small aneurysm, nor the possibility of distal intracranial vessel disease. TECHNIQUE: MR venography of the brain was performed without contrast with multiplanar and 3D reconstructions. FINDINGS: The venous system appears to be grossly patent. There is some limited visualization of the vein of [place] and straight sinus. The sagittal sinus and some of its branches appear to be grossly patent. CONCLUSION: Limited study. Grossly unremarkable exam. Kenroy Luong MD on December 06, 2016 at 22:22 Board Certified Radiologist. This report was verified electronically.
[2016-12-06] MEDS ORDERED: predniSONE 5 MG TAB PO ONE (23:15)
[2016-12-07] VITALS (12 sets, daily range): BP systolic 102–131; BP diastolic 57–63; PULSE 84–130; RESP 21–29; TEMP 98.4–101; O2SAT 94–98
[2016-12-07 00:38] LABS: BLOOD GAS BASE EXCESS -6.4 mmol/L (-2-2); BLOOD GAS CARBOXYHEMOGLOBIN 1.2 % (0-4); BLOOD GAS HCO3 18 mmol/L (22-26); BLOOD GAS METHEMOGLOBIN 0.8 % (0-2); BLOOD GAS O2 HGB SATURATION 95 % (90-100); BLOOD GAS PCO2 32 mmHg (38-42); BLOOD GAS PO2 90 mmHG (61-120); BLOOD GAS TOTAL HGB 8.9 G/DL (12.0-16.0); CRITICAL VALUE NO; DRAW SITE LT RADIAL; LITER FLOW 3 L/M; NUMBER OF ARTERIAL PUNCTURES 1; OXYGEN DEVICE NASAL CANNULA; STAT YES; TEMP CORR TO 98.6; ULNAR PULSE PRESENT
[2016-12-07] MEDS: ACYCLOVIR INJ 600 MG in SODIUM CHLORIDE 0.9% INJ 100 ML IV SCH ×3 (01:00→18:24)
[2016-12-07] MEDS: PIPERACIL-TAZO 4.5 GM PREMIX 100 ML IV SCH ×4 (02:00→20:21)
[2016-12-07] MEDS: AMPICILLIN INJ 2,000 MG in SODIUM CHLORIDE 0.9% INJ 100 ML IV SCH ×4 (02:00→13:40)
[2016-12-07] MEDS: DILTIAZEM HCL 25 MG/5 ML VIAL IV SCH ×3 (06:00→21:32)
[2016-12-07] MEDS: SODIUM CHLOR 0.9% 1000 ML INJ 1,000 ML IV SCH ×4 (06:01→20:23)
[2016-12-07] MEDS ORDERED: BACLOFEN 10 MG TAB PO PRN (07:30)
--- NOTE | 2016-12-07 07:33 | HHI.PR ---
Objective Vital Signs Date Time Temp Pulse Resp B/P (MAP) Pulse Ox O2 Delivery O2 Flow Rate FiO2 12/07/16 05:28 36 12/07/16 04:00 130 12/07/16 04:00 100.0 130 26 123/63 (83) 95 12/07/16 02:00 128 12/07/16 00:00 126 12/06/16 22:20 115 12/06/16 18:08 100.9 12/06/16 18:01 132 12/06/16 17:00 132 12/06/16 15:15 103.1 131 20 172/98 (122) 96 12/06/16 15:00 130 12/06/16 14:00 126 12/06/16 13:00 140 12/06/16 12:00 134 12/06/16 11:30 128 12/06/16 11:01 102.7 133 20 172/98 (122) 96 12/06/16 10:57 128 18 156/79 (104) 99 12/06/16 09:04 124 18 160/75 (103) 100 Room Air 12/06/16 07:46 128 18 166/79 (108) 100 Room Air I/O 12/06/16 12/06/16 12/06/16 12/07/16 12/07/16 12/07/16 07:00 15:00 23:00 07:00 15:00 23:00 Intake Total 3100 ml 350 ml 536 ml 240 ml Output Total 1700 ml 1150 ml 500 ml Balance 1400 ml 350 ml -614 ml -260 ml Intake Oral 240 ml 240 ml IV Total 3100 ml 350 ml 296 ml Output Urine Total 1700 ml 1150 ml 500 ml # Bowel Movements 3 0 Result Diagram: 12/06/1615412/06/16154 Objective Remarks awake pupil = left ptosis similar to last pm awkens and sticks out tongue adn pciks up arms for me confused Assessment and Plan Assessment and Plan imp LP 15 wbc but protein markedly inc to 172 68L on abt id on board may be viral encephalitis? 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
[2016-12-07] MEDS ORDERED: PILL SPLITTER OTHER PRN (07:45)
[2016-12-07] MEDS: LEFLUNOMIDE 20 MG TAB PO SCH (08:25)
[2016-12-07] MEDS: GABAPENTIN 400 MG CAP PO SCH ×3 (08:25→18:24)
[2016-12-07] MEDS: CITALOPRAM HYDROBROMIDE 20 MG TAB PO SCH (08:25)
[2016-12-07] MEDS: DOCUSATE SODIUM 50 MG/SENNA 8.6 MG TAB PO SCH ×2 (08:25→20:22)
[2016-12-07] MEDS: predniSONE 5 MG TAB PO SCH ×2 (08:26→20:22)
[2016-12-07] MEDS: METOPROLOL TARTRATE 50 MG TAB PO SCH ×3 (08:26→21:00)
[2016-12-07] MEDS: PANTOPRAZOLE SOD 40 MG DELAYED RELEASE TAB PO SCH (08:26)
--- NOTE | 2016-12-07 08:32 | PD.PROCEDR ---
Procedure Note Procedure Consult was placed to critical care medicine for vascular access. Nurse has discussed with patient's daughter who indicated a desire to avoid placement in the patient's neck due to concerns regarding comfort. At this point patient does not require central line and I feel it is in her best interest to proceed with peripheral IV if I am able to obtain it. DATE: 12/07/16 PERIPHERAL IV PLACEMENT x2. INDICATION: Need for vascular access DESCRIPTION OF THE PROCEDURE Patient's left arm was positioned.. The skin was cleansed with alcohol swab. Ultrasound was used to visualize vein in proximal left forearm. 22-gauge Angiocath was advanced. IV flushes well with patient discomfort. Sterile dressing was applied. Patient's right arm was positioned. The skin was cleansed with alcohol swab. Ultrasound was used to visualize pain in the proximal right forearm. 22-gauge Angiocath was advanced. There is good blood return. IV flushes well without patient discomfort. Sterile dressing was applied. COMPLICATIONS: Patient tolerated the procedure well without apparent complications. Followed up with RN who states that antibiotics are now running with no issues with IV site. Karla Ashton MD Dec 07, 2016 08:32
[2016-12-07] MEDS: VANCOMYCIN INJ 1,250 MG in SODIUM CHLOR 0.9% 250 ML INJ 250 ML IV SCH ×3 (08:38)
[2016-12-07] MEDS: SODIUM CHLORIDE 0.9% FLUSH 10 ML FLUSH IV FLUSH SCH ×2 (09:00→20:22)
[2016-12-07] MEDS ORDERED: ENOXAPARIN SODIUM 40 MG/0.4 ML SYRINGE SQ SCH (09:00)
[2016-12-07] MEDS: methylPREDNISolone SO SUCC INJ 1,000 MG in DEXTROSE 5% IN WATER 100ML INJ 100 ML IV SCH ×2 (09:33)
--- NOTE | 2016-12-07 10:02 | PD.CONS ---
Consult Service Palliative Care . Consult Requested By Dr. Amada Corey . Primary Care Physician Unknown . Reason for Consultation a. To assist with evaluation and management of symptoms including: pain. b. To assist medical decision maker(s) with: better understanding of current medical conditions; weighing benefits/burdens of medical treatment options; making medical treatment decisions. . (Rebecca Ortez) HPI History of Present Illness Ms. Kimberly (Jen) is a 46 year old female with past medical history of diabetes, hypertension, multiple sclerosis, rheumatoid arthritis on prednisone and leflunomide, ? CHF and osteoporosis. Previously went to [facility] ER was discharged home with normal mentation. She began yelling, not making sense so her family brought her to [place]. Patient presented to [facility] on 12/06/16 with altered mental status, lethargy and not wanting to eat. She was noted to be increased tenderness in her neck. She had been on Cephalexin daily for cervical spine prophylaxis. Upon arrival to the Er she was found to have abdominal distention, Ocampo was placed. Additional findings included: * WBC 14.9, hemoglobin 11.2, hematocrit 36.1, platelet count 346, neutrophil 85.6% * BUN 7, creatinine 0.57, glucose 19, sodium 134, potassium 3.7, chloride 102, carbon dioxide 21.3, GFR 114 * total protein 6.4, albumin 2.9 * alkaline phosphatase 103, AST 14, ALT 15, total bilirubin 0.3 * total creatine kinase 62, troponin 0.02 * C-reactive protein 5.67 * BNP 92 * lipase 54 * TSH 3.820 * ethyl alcohol less than 3 * PT 9.7, INR 0.9, PTT 25 * urinalysis negative * toxicology screen negative * CT abdomen/ pelvis - no acute findings * chest x-ray no acute cardiopulmonary disease * CT head - motion degrading exam showing moderate white matter hypodensity of undetermined chronicity * MRI cervical spine - limited MRI of cervical spine * Head MRA - normal exam * MRI brain - chronic nonspecific white matter changes bilaterally and bilateral cortical atrophy, focal old infarct in the cerebellar hemisphere. Patient is admitted with sepsis, altered mental status. Infectious disease, Dr. Corey was consulted for management of sepsis possible meningoencephalitis. Neurology, Dr. Torrez was also consulted. Lumbar puncture revealed WBC 15, protein elevated 172. MRA and MRV negative. 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 Neurology with possible viral encephalitis. Patient is on Acyclovir, HSV pending. Cultures and cytology pending. Palliative care was consulted to assist with complicated family dynamics, goals of care and assist with determining proxy decision maker. . Function/Cognitive Trajectory At baseline, she is mostly wheel chair bound but is able to walk short distances. . (Rebecca Ortez) Review of Systems ROS Limitations: Altered Mental Status (ROS per family report and patient when awake enough to answer. ) Constitutional: COMPLAINS OF: Fatigue, Change in appetite (decreased), Generalized weakness Musculoskeletal: COMPLAINS OF: Joint pain, Stiffness, Neck pain, Decreased range of motion Integumentary: COMPLAINS OF: Non-healing sores (Bilateral LE ) Hematologic/Lymphatics: COMPLAINS OF: Bruising Neurologic: COMPLAINS OF: Poor Balance Psychiatric: COMPLAINS OF: Anxiety, Confusion Other ROS: pain in right tongue for 2 weeks, intermittent, burning, worse at night. . (Rebecca Ortez) Past Family Social History Coded Allergies: hydromorphone (Verified Allergy, Unknown, 12/06/16) metformin (Verified Allergy, Unknown, 12/06/16) Past Medical History DM HTN MS RA, immunocompromised Questionable CHF Osteoporosis Prior C. Diff Recent bilateral LE cellulitis . Past Surgical History Cervical fusion 2007 . Reported Medications Reported Meds & Active Scripts Active Reported Lantus Inj (Insulin Glargine) 1,000 Unit/10 Ml Vial 40 Units SQ HS Cephalexin 500 Mg Tab 500 Mg PO Q12H Leflunomide 20 Mg Tab 20 Mg PO DAILY Metoprolol Tartrate 50 Mg Tab 50 Mg PO BID Prednisone (48) 5 mg tab Dose Pack (Prednisone) 5 Mg Dspk 5 Mg PO BID Citalopram (Citalopram Hydrobromide) 20 Mg Tab 20 Mg PO DAILY Gabapentin 800 Mg Tab 800 Mg PO TID Baclofen 10 Mg Tab 10 Mg PO Q8HR PRN Oxycodone-Acetaminophen 10-325 mg Tab 1 Tab PO Q6H PRN Hydroxyzine HCl 50 Mg Tab 50 Mg PO BID PRN Ditropan (Oxybutynin Chloride) 5 Mg Tab 5 Mg PO Q12HR PRN . Current Medications Medications (Trade) Dose Ordered Sig/Fuentse Route Start Time Stop Time Status Last Admin (NS Flush) 2 ml UNSCH PRN IV FLUSH 12/06/16 04:45 (NS Flush) 2 ml BID IV FLUSH 12/06/16 09:00 12/07/16 09:00 Pharmacy Profile Note 0 ml @ 0 mls/hr UNSCH OTHER 12/06/16 04:45 Piperacillin Sod/ Tazobactam Sod 100 ml @ 200 mls/hr Q6H IV 12/06/16 08:00 12/07/16 08:00 (Cardizem Inj) 15 mg Q4H PRN IV 12/06/16 06:45 (Cardizem Inj) 20 mg Q8H IV 12/06/16 14:00 12/07/16 06:00 Sodium Chloride 1,000 ml @ 100 mls/hr Q10H IV 12/06/16 08:02 12/06/16 09:34 (Tylenol) 650 mg Q4H PRN PO 12/06/16 08:15 12/06/16 15:06 (Zofran Inj) 4 mg Q6H PRN IVP 12/06/16 08:15 (Tylenol) 650 mg Q6H PRN PO 12/06/16 08:15 (Narcan Inj) 0.4 mg UNSCH PRN IV PUSH 12/06/16 08:15 (Shaylee-Colace) 1 tab BID PO 12/06/16 09:00 12/07/16 08:25 (Milk Of Magnesia Liq) 30 ml Q12H PRN PO 12/06/16 08:15 (Senokot) 17.2 mg Q12H PRN PO 12/06/16 08:15 (Dulcolax Supp) 10 mg DAILY PRN RECTAL 12/06/16 08:15 (Lactulose Liq) 30 ml DAILY PRN PO 12/06/16 08:15 Vancomycin HCl 1250 mg/Sodium Chloride 262.5 ml @ 250 mls/hr Q12H IV 12/06/16 12:00 12/07/16 08:38 (Lopressor Inj) 5 mg Q6H PRN IV PUSH 12/06/16 13:00 12/06/16 12:59 (Levemir Inj) 30 units HS SQ 12/06/16 21:00 (Lopressor) 50 mg Q12HR PO 12/06/16 21:00 12/07/16 08:26 Acyclovir Sodium 600 mg/Sodium Chloride 100 ml @ 100 mls/hr Q8H IV 12/06/16 17:00 12/07/16 09:33 (Tylenol Supp) 650 mg Q6H PRN RECTAL 12/06/16 14:45 Fluconazole/ Sodium Chloride 50 ml @ 50 mls/hr Q24H IV 12/06/16 18:00 12/06/16 19:14 Sodium Chloride 1,000 ml @ 75 mls/hr [id number] IV 12/06/16 16:41 12/06/16 16:41 (CeleXA) 20 mg DAILY PO 12/07/16 09:00 12/07/16 08:25 (Neurontin) 800 mg TID PO 12/06/16 18:00 12/07/16 08:25 (Atarax) 50 mg BID PRN PO 12/06/16 17:00 (Ditropan) 5 mg Q12HR PRN PO 12/06/16 17:00 (Arava) 20 mg DAILY PO 12/07/16 09:00 12/07/16 08:25 Ampicillin Sodium 2000 mg/Sodium Chloride 100 ml @ 400 mls/hr Q4H IV 12/06/16 18:00 12/07/16 09:32 (Deltasone) 5 mg BID PO 12/07/16 09:00 12/07/16 08:26 (Protonix) 40 mg DAILY PO 12/07/16 09:00 12/07/16 08:26 (Lioresal) 5 mg BID PRN PO 12/07/16 07:30 Methylprednisolone Sodium Succinate 1000 mg/Dextrose 116 ml @ 232 mls/hr Q24H IV 12/07/16 09:00 12/07/16 09:33 (Pill Splitter) 1 ea UNSCH PRN OTHER 12/07/16 07:45 Family History Mom, living with history of Breast cancer Dad, living with history of Prostate cancer and RA. . Substance Use No known history of alcohol, tobacco or drug use. . Psychosocial History Ms. Harris likes to be called "Di." Originally from [place], lived in [place] for some time (majority of [place] took place in [place] She is . Has 1 daughter- Karolina, age 22. Also supported by a fiance, Glenroy. 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 Described as a fun, loving , good mother and social woman. . Spiritual/Cultural Factors Anabaptism heidi, welcomes case finishing machine adjuster support. . (Rebecca Ortez) Living Will: Never completed Health Care Surrogate: Never completed Durable Power of Product Development Technician: Never completed Health Care Surrogate(s): Patient is incapacitated, uncertain if she will regain capacity. No known written advanced directives, it has been discussed in the past but nothing was ever signed. According to [place] Statutes, health care medical proxy decision maker falls to majority of adult children. Patient has 1 daughter Karolina, who is willing to serve as health care proxy decision maker. She is supported by Ms. Harris's mother, father, and fiance. . Today's verbally stated goals: Patient having trouble staying engaged in conversation. Does not appear capacitated to make her own decisions. . Family/friends goals: Family certain patient would elect NO CODE based on previous conversations with patient. Desires continued aggressive care short of NO CODE (DNR/DNI). . Ethical and Legal Issues Patient is incapacitated, uncertain if she will regain capacity. No known written advanced directives, it has been discussed in the past but nothing was ever signed. According to [place] Statutes, health care medical proxy decision maker falls to majority of adult children. Patient has 1 daughter Karolina, who is willing to serve as health care proxy decision maker. She is supported by Ms. Harris's mother, father, and fiance. . (Rebecca Ortez) Health Care Surrogate(s): Karolina, daughter: [phone] Jemima, mother: [phone] Glenroy fiance: [phone] (Michelle Gary AP PROCESSOR, CERTIFIED REHABILITATION COUNSELOR) Physical Exam Vital Signs Date Time Temp Pulse Resp B/P (MAP) Pulse Ox O2 Delivery O2 Flow Rate FiO2 12/07/16 06:00 127 12/07/16 05:28 36 12/07/16 04:00 130 12/07/16 04:00 100.0 130 26 123/63 (83) 95 12/07/16 02:00 128 12/07/16 00:00 126 10/11/17 22:20 115 12/06/16 18:08 100.9 12/06/16 18:01 132 12/06/16 17:00 132 12/06/16 15:15 103.1 131 20 172/98 (122) 96 12/06/16 15:00 130 12/06/16 14:00 126 12/06/16 13:00 140 12/06/16 12:00 134 12/06/16 11:30 128 12/06/16 11:01 102.7 133 20 172/98 (122) 96 12/06/16 10:57 128 18 156/79 (104) 99 Exam CONSTITUTIONAL/GENERAL: This is a chronically ill appearing patient, moaning and crying in pain intermittently during my visit. TUBES/LINES/DRAINS: PIV right, Ocampo. SKIN: Ecchymoses on upper extremities. Bilateral LE redness and wound to left lateral LE with yellowish drainage. Skin temperature warm. HEAD: Atraumatic. Normocephalic. EYES: Eyes closed. ENT: Hearing appears grossly normal. Nose without bleeding or purulent drainage. NECK: Trachea midline. CARDIOVASCULAR: Tachycardic rate 130s. RESPIRATORY/CHEST: Symmetric, unlabored respirations. Clear to auscultation. Diminished breath sounds bilaterally. GASTROINTESTINAL: Abdomen soft, non-tender, nondistended. No guarding. Bowel sounds present. GENITOURINARY: Without palpable bladder distension. Ocampo catheter in place. MUSCULOSKELETAL: Extremities with erythema and edema. LYMPHATICS: No palpable cervical or supraclavicular adenopathy. NEUROLOGICAL: Awakens briefly, answers some questions, falls off to sleep. PSYCHIATRIC: Intermittently moaning and restless. . (Rebecca Ortez) Diagnostic Tests Laboratory Laboratory Tests Test 12/06/16 01:55 12/06/16 02:10 12/06/16 04:06 12/06/16 06:21 White Blood Count 14.9 TH/MM3 (4.0-11.0) Red Blood Count 4.69 MIL/MM3 (4.00-5.30) Hemoglobin 11.2 GM/DL (11.6-15.3) Hematocrit 36.1 % (35.0-46.0) Mean Corpuscular Volume 77.0 FL (80.0-100.0) Mean Corpuscular Hemoglobin 23.8 PG (27.0-34.0) Mean Corpuscular Hemoglobin Concent 31.0 % (32.0-36.0) Red Cell Distribution Width 17.5 % (11.6-17.2) Platelet Count 346 TH/MM3 (150-450) Mean Platelet Volume 7.7 FL (7.0-11.0) Neutrophils (%) (Auto) 85.6 % (16.0-70.0) Lymphocytes (%) (Auto) 9.1 % (9.0-44.0) Monocytes (%) (Auto) 3.9 % (0.0-8.0) Eosinophils (%) (Auto) 0.8 % (0.0-4.0) Basophils (%) (Auto) 0.6 % (0.0-2.0) Neutrophils # (Auto) 12.7 TH/MM3 (1.8-7.7) Lymphocytes # (Auto) 1.4 TH/MM3 (1.0-4.8) Monocytes # (Auto) 0.6 TH/MM3 (0-0.9) Eosinophils # (Auto) 0.1 TH/MM3 (0-0.4) Basophils # (Auto) 0.1 TH/MM3 (0-0.2) CBC Comment DIFF FINAL Differential Comment Blood Urea Nitrogen 7 MG/DL (7-18) Creatinine 0.57 MG/DL (0.50-1.00) Random Glucose 109 MG/DL (74-106) Total Protein 6.4 GM/DL (6.4-8.2) Albumin 2.9 GM/DL (3.4-5.0) Calcium Level 8.6 MG/DL (8.5-10.1) Magnesium Level 1.5 MG/DL (1.5-2.5) Alkaline Phosphatase 103 U/L (45-117) Aspartate Amino Transf (AST/SGOT) 14 U/L (15-37) Alanine Aminotransferase (ALT/SGPT) 15 U/L (10-53) Total Bilirubin 0.3 MG/DL (0.2-1.0) Sodium Level 134 MEQ/L (136-145) Potassium Level 3.7 MEQ/L (3.5-5.1) Chloride Level 102 MEQ/L (98-107) Carbon Dioxide Level 21.3 MEQ/L (21.0-32.0) Anion Gap 11 MEQ/L (5-15) Estimat Glomerular Filtration Rate 114 ML/MIN (>89) Total Creatine Kinase 62 U/L (26-192) Troponin I LESS THAN 0.02 NG/ML C-Reactive Protein 5.67 MG/DL (0.00-0.30) B-Type Natriuretic Peptide 92 PG/ML (0-100) Lipase 54 U/L (73-393) Thyroid Stimulating Hormone 3rd Gen 3.820 uIU/ML (0.358-3.740) Ethyl Alcohol Level LESS THAN 3 MG/DL (0-5) Prothrombin Time 9.7 SEC (9.8-11.6) Prothromb Time International Ratio 0.9 RATIO Activated Partial Thromboplast Time 25.0 SEC (24.3-30.1) Urine Color LIGHT-YELLOW (YELLW/STRAW) Urine Turbidity CLEAR (CLEAR) Urine pH 7.5 (5.0-8.5) Urine Specific [place] 1.004 (1.002-1.035) Urine Protein 30 mg/dL (NEG-TRACE) Urine Glucose (UA) NEG mg/dL (NEG) Urine Ketones 10 mg/dL (NEG) Urine Occult Blood NEG (NEG) Urine Nitrite NEG (NEG) Urine Bilirubin NEG (NEG) Urine Urobilinogen LESS THAN 2.0 MG/DL (LESS Urine Leukocyte Esterase NEG (NEG) Urine RBC 4 /hpf (0-3) Urine WBC 1 /hpf (0-5) Urine Bacteria RARE /hpf (NONE) Microscopic Urinalysis Comment CULT NOT INDICATED Lactic Acid Level 3.6 mmol/L (0.4-2.0) 2.2 mmol/L (0.4-2.0) 1.5 mmol/L (0.4-2.0) Ammonia 17 MCMOL/L (11-32) Urine Opiates Screen NEG (NEG) Urine Barbiturates Screen NEG (NEG) Urine Amphetamines Screen NEG (NEG) Urine Benzodiazepines Screen NEG (NEG) Urine Cocaine Screen NEG (NEG) Urine Cannabinoids Screen NEG (NEG) Test 12/06/16 15:52 12/06/16 16:40 12/06/16 22:13 12/07/16 00:20 CSF Volume (Tube 1) 3.5 ML CSF Supernatant Color (tube 1) CLEAR (CLEAR) CSF Gross Blood (Tube 1) 0 (0) CSF Volume (Tube 2) 2.5 ML CSF Supernatant Color (tube 2) CLEAR (CLEAR) CSF Gross Blood (Tube 2) 0 (0) CSF WBC (Tube 2) /MM3 (0-10) CSF Volume (Tube 3) 3.0 ML CSF Supernatant Color (tube 3) CLEAR (CLEAR) CSF Volume (Tube 4) 2.5 ML CSF Supernatant Color (tube 4) CLEAR (CLEAR) CSF WBC (Tube 4) 15 /MM3 (0-10) CSF RBC (Tube 4) 0 /MM3 (NONE) CSF Neutrophils 0 % CSF Lymphocytes 32 % CSF Monocytes 68 % CSF Glucose 53 MG/DL (40-80) CSF Lactic Acid 3.7 MMOL/L (0.0-3.0) CSF Total Protein 170.3 MG/DL (15.0-45.0) Total Creatine Kinase 194 U/L (26-192) Creatine Kinase MB 1.5 NG/ML (0.5-3.6) Creatine Kinase MB % 0.8 % (0.0-4.0) Troponin I 0.14 NG/ML (0.02-0.05) C-Reactive Protein 16.20 MG/DL (0.00-0.30) Nasal Screen MRSA (PCR) MRSA NOT DETECTED (NOT Blood Gas Puncture Site LT RADIAL Blood Gas Patient Temperature 98.6 Blood Gas HCO3 18 mmol/L (22-26) Blood Gas Base Excess -6.4 mmol/L (-2-2) Blood Gas Oxygen Saturation 95 % (90-100) Arterial Blood pH 7.37 (7.380-7.420) Arterial Blood Partial Pressure CO2 32 mmHg (38-42) Arterial Blood Partial Pressure O2 90 mmHG (61-120) Arterial Blood Oxygen Content 12.0 Vol % (12.0-20.0) Arterial Blood Carboxyhemoglobin 1.2 % (0-4) Arterial Blood Methemoglobin 0.8 % (0-2) Blood Gas Hemoglobin 8.9 G/DL (12.0-16.0) Oxygen Delivery Device NASAL CANNULA Blood Gas Liter Flow 3 L/M Test 12/07/16 00:41 (Rebecca Ortez) Result Diagram: 12/06/16 0155 12/06/16 0155 Microbiology Microbiology Date/Time Source Procedure Growth Status 12/06/16 02:00 Blood Peripheral Aerobic Blood Culture Pending Received 12/06/16 02:00 Blood Peripheral Anaerobic Blood Culture Pending Received 12/06/16 01:34 Blood Peripheral Aerobic Blood Culture Pending Received 12/06/16 01:34 Blood Peripheral Anaerobic Blood Culture Pending Received 12/06/16 15:52 Cerebral Spinal Fluid Lumbar Puncture Fungal Smear - Final NO FUNGAL ELEMENTS SEEN. Resulted 12/06/16 15:52 Cerebral Spinal Fluid Lumbar Puncture Fungal Culture Pending Resulted 12/06/16 15:52 Cerebral Spinal Fluid Lumbar Puncture Acid Fast Stain Pending Received 12/06/16 15:52 Cerebral Spinal Fluid Lumbar Puncture Mycobacterial Culture Pending Received 12/06/16 15:52 Cerebral Spinal Fluid Lumbar Puncture Gram Stain - Final Resulted 12/06/16 15:52 Cerebral Spinal Fluid Lumbar Puncture CSF Culture - Preliminary NO GROWTH IN 24 HOURS. Resulted 12/06/16 06:20 Wound Leg Gram Stain - Final Resulted 12/06/16 06:20 Wound Leg Wound Culture Pending Resulted Imaging Last Impressions Brain MRI 12/06/16 194 Signed Impressions: Service Date/Time: Tuesday, December 06, 2016 21:13 - CONCLUSION: 1. Chronic nonspecific white matter changes bilaterally and bilateral cortical atrophy.. 2. 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 Kenroy Luong MD Head CT 12/06/16 0200 Signed Impressions: Service Date/Time: Tuesday, December 06, 2016 03:15 - CONCLUSION: Motion degraded exam showing moderate white matter hypodensity of undetermined chronicity. Marcus Buchanan MD Chest X-Ray 12/06/16 0200 Signed Impressions: Service Date/Time: Tuesday, December 06, 2016 01:56 - CONCLUSION: No acute cardiopulmonary disease Marcus Buchanan MD Neck Ultrasound 12/06/16 0000 Signed Impressions: Service Date/Time: Tuesday, December 06, 2016 08:06 - CONCLUSION: No abscess observed. Ultrasound evaluation for an abscess in this area is very difficult and an abscess can easily be occult by ultrasound evaluation. CT or MRI is more sensitive. Mukul Gary Jr., MD Lumbar Puncture Fluoroscopy 12/06/16 0000 Signed Impressions: Service Date/Time: Tuesday, December 06, 2016 15:52 - CONCLUSION: Uncomplicated fluoroscopically guided lumbar puncture with pressures as above. Rg Paz MD Head/Brain Mag Res Venography 12/06/16 Signed Impressions: Service Date/Time: Tuesday, December 06, 2016 21:13 - CONCLUSION: Limited study. Grossly unremarkable exam. Kenroy Luong MD Head Magnetic Resonance Angiography 12/06/16 Signed Impressions: Service Date/Time: Tuesday, December 06, 2016 21:13 - CONCLUSION: Normal examination for a patient of this age. Kenroy Luong MD Hand X-Ray 12/06/16 Signed Impressions: Service Date/Time: Tuesday, December 06, 2016 20:04 - CONCLUSION: Extensive arthritis throughout the hand and wrist. Kenroy Luong MD Cervical Spine MRI 12/06/16 Signed Impressions: Service Date/Time: Tuesday, December 06, 2016 21:13 - CONCLUSION: Extremely limited MRI of the cervical spine. Kenroy Luong MD Abdomen/Pelvis CT 12/06/16 Signed Impressions: Service Date/Time: Tuesday, December 06, 2016 03:21 - CONCLUSION: No definite acute CT findings in the abdomen or pelvis. Marcus Buchanan MD Procedures * 12/06/16 - lumbar puncture . (Rebecca Ortez) Patient/Family Conference Present at Family Conference: Met with patient (did not really participate in meeting), mother (Jemima), daughter (Karolina) and fiance (Glenroy). Also present Michelle Gary LCSW. Family Conference Time (mins): 45 Family Conference Location: Bedside Issues Discussed: * Palliative care role, purpose, approach * Additional medical, psychosocial, and spiritual history * Patients general health, functional status, and cognitive changes in the months leading up to the current hospitalization * Patient/family understanding of the current medical problems * Patient/family understanding of prognosis * Patients goals of care as best understood from advance directives and/or conversations and/or values * Current medical treatment options and benefits/burdens of those options * Likely scenarios comparing ongoing aggressive care with a transition to comfort measures only * Questions answered to the best of my ability * Palliative care contact information provided In summary, family is very appreciative. They are certain patient would not want cardiac resuscitation or intubation, elects NO CODE (DNR/DNI). I have encouraged continued aggressive care given test results pending, clinical improvement in the past 24 hours as we are still uncertain what the underlying cause of infection is. Family understands she will likely continue to have repeat infections given general debility, autoimmune disorders and underlying immunocompromise. I have discussed possibility of further setbacks, decline and repeat infections in the future. Family verbalizes she has been declining with more frequent infections over the past few years. Family welcomes continued palliative care visits and appreciate the time spent in reviewing test results, expected disease progression and what to expect in the future. . (Rebecca Ortez) Assessment and Plan Disease Oriented Problem List: (1) Sepsis (2) Acute metabolic encephalopathy Symptom Scale: (1) Pain 0-10 Scale: Unable to quantify (2) Altered mental status 0-10 Scale: Unable to quantify Pertinent Non-Medical Issues Psychosocial: Supported by her daughter, mini and parents. Spiritual: Unknown. Legal: Patient is incapacitated, uncertain if she will regain capacity. No known written advanced directives, it has been discussed in the past but nothing was ever signed. According to [place] Statutes, health care medical proxy decision maker falls to majority of adult children. Patient has 1 daughter Karolina, who is willing to serve as health care proxy decision maker. She is supported by Ms. Harris's mother, father, and fiance. Ethical issues impacting care: No known concerns at this time. . Important Contacts * Karolina, daughter/ HCP: * Jemima Laurent, mother: [phone] . Prognosis Ms. Harris is an unfortunate 46 year old with chronic medical comorbidities including RA (chronic steroids), diabetes, etc admitted with altered mental status and sepsis. While she may survive this hospitalization she remains high risk for further decline, repeat infections/ hospitalizations. Code Status: No Code Plan * Decision Maker: Patient is incapacitated, uncertain if she will regain capacity. No known written advanced directives, it has been discussed in the past but nothing was ever signed. According to [place] Statutes, health care medical proxy decision maker falls to majority of adult children. Patient has 1 daughter Karolina, who is willing to serve as health care proxy decision maker. She is supported by Ms. Harris's mother, father, and fiance. FULL * FULL CODE * Palliative care met with patient (did not participate much due to lethargy), daughter/ HCP (Karolina), mother (Jemima) and fiance (Glenroy). In summary, family desires continued aggressive care short of NO CODE. They are certain patient would not want cardiac resuscitation or intubation, elects NO CODE (DNR/DNI). I have encouraged continued aggressive care given test results pending, clinical improvement in the past 24 hours as we are still uncertain what the underlying cause of infection is. Family understands she will likely continue to have repeat infections given general debility, autoimmune disorders and underlying immunocompromise. I have discussed possibility of further setbacks, decline and repeat infections in the future. Family verbalizes she has been declining with more frequent infections over the past few years. Family welcomes continued palliative care visits and appreciate the time spent in reviewing test results, expected disease progression and what to expect in the future. * SYMPTOMS: Pain: in tongue, neck, back, legs and right UE likely secondary to chronic debility, diabetes, RA, bed/chair bound status, tubes. Currently off all pain meds due to altered mental status, will make pain recommendations once neurology give approval. * Palliative care number provided. * Palliative care will continue to follow throughout hospital course to assist with symptom management and clarification of goals as needed. (Rebecca Ortez) Important Contacts Karolina, daughter/HCP: [phone] mini Tim: [phone] (Michelle Gary AP PROCESSOR, [facility]) Thank you for the opportunity to participate in the care of Ms. Harris. (Rebecca Ortez) Attestation To help prompt me to consider important information that might be impacting today's encounter and assessment, information from prior notes written by myself or my colleagues may have been "brought forward" into today's note. My signature on this note, however, is an attestation that I personally performed the exam, history, and/or decision-making noted today, and, unless otherwise indicated, the interactions with patient, family, and staff as well as the review of records all occurred today. I also attest that the listed assessment and stated plan reflect my best clinical judgment today based on the combination of historical information, prior notes, and today's exam/ interactions. When time spent is documented, it refers only to time spent today by the signer, or if indicated, combined time spent today by collaborating physician/nurse practitioner. (Rebecca Ortez) Rebecca Ortez Dec 07, 2016 10:02 Michelle Gary, CERTIFIED REHABILITATION COUNSELOR Dec 07, 2016 12:47
--- NOTE | 2016-12-07 10:03 | OTSOAPIP ---
TIME SESSION COMPLETED: 1003 TREATMENT TIME: 0 MINS. CHART REVIEWED. PT HAS SINCE TRANSFERRED TO INTENSIVE CARE WITH A CHANGE IN STATUS. WILL REQUIRE NEW ORDER FOR OT WHEN STABLE. WILL SIGN OFF. Therapist: MALOU HARRIS OT/L Signature on file
[2016-12-07] MEDS ORDERED: DEXTROSE 50% IN WATER 50 ML VIAL(D50) IV PUSH PRN ×2 (11:30→18:15)
[2016-12-07] MEDS ORDERED: GLUCAGON 1 MG/ML VIAL OTHER PRN ×2 (11:30→18:15)
[2016-12-07] MEDS ORDERED: PHARMACY ORDERED LAB ONE (11:45)
--- NOTE | 2016-12-07 12:37 | ECHRPT ---
Indication: SEPSIS ENDOCARDITIS CONCLUSIONS Normal left ventricular size. Mild concentric left ventricular hypertrophy. The left ventricular systolic function is normal with an estimated ejection fraction in the range of 55-60%. The left atrial size is upper limits of normal. Moderate mitral annular calcification is present. Trace mitral valve regurgitation. Aortic valve sclerosis is present. There is mild tricuspid valve regurgitation. The estimated pulmonary arterial pressure is 32 mmHg. BP: 172 / 98 HR: 133 Rhythm: MEASUREMENTS (Male / Female) Normal Values Technical Quality: 2D ECHO LV Diastolic Diameter PLAX 4.1 cm 4.2 - 5.9 / 3.9 - 5.3 cm LV Systolic Diameter PLAX 2.9 cm IVS Diastolic Thickness 1.3 cm 0.6 - 1.0 / 0.6 - 0.9 cm LVPW Diastolic Thickness 0.7 cm 0.6 - 1.0 / 0.6 - 0.9 cm LV Relative Wall Thickness 0.5 RV Internal Dim ED PLAX 2.2 cm LA Systolic Diameter LX 4.0 cm 3.0 - 4.0 / 2.7 - 3.8 cm M-MODE Aortic Root Diameter MM 2.8 cm AV Cusp Separation MM 1.7 cm DOPPLER MV Peak Velocity 128.0 cm/s MV Peak Gradient 6.6 mmHg MV Mean Velocity 65.6 cm/s MV Mean Gradient 2.0 mmHg Mitral E Point Velocity 88.4 cm/s Mitral A Point Velocity 81.9 cm/s Mitral E to A Ratio 1.1 LV E' Lateral Velocity 4.7 cm/s Mitral E to LV E' Lateral Ratio 18.8 LV E' Septal Velocity 6.5 cm/s Mitral E to LV E' Septal Ratio 13.6 TR Peak Velocity 282.0 cm/s TR Peak Gradient 31.8 mmHg FINDINGS LEFT VENTRICLE Normal left ventricular size. Mild concentric left ventricular hypertrophy. The left ventricular systolic function is normal with an estimated ejection fraction in the range of 55-60%. RIGHT VENTRICLE Normal right ventricular size and systolic function. LEFT ATRIUM The left atrial size is upper limits of normal. RIGHT ATRIUM The right atrial size is normal. ATRIAL SEPTUM Normal atrial septal thickness without atrial level shunting by limited color doppler interrogation. AORTA The aortic root and proximal ascending aorta are normal in size on limited imaging. MITRAL VALVE Moderate mitral annular calcification is present. Trace mitral valve regurgitation. AORTIC VALVE Aortic valve sclerosis is present. TRICUSPID VALVE There is mild tricuspid valve regurgitation. The estimated pulmonary arterial pressure is 32 mmHg. PULMONARY VALVE The pulmonary valve is not well visualized. VESSELS The inferior vena cava is normal in size. PERICARDIUM No pericardial effusion. Greg Cruz MD, FACC (Electronically Signed) Final Date:07 December 2016 12:36
[2016-12-07] MEDS: levETIRAcetam 1000 MG INJ 100 ML IV SCH ×2 (14:56→20:22)
[2016-12-07] MEDS: ACETAMINOPHEN 325 MG TAB PO PRN (14:56)
--- NOTE | 2016-12-07 15:11 | HHI.PR ---
Subjective Remarks The patient was seen earlier today. She is more alert and oriented. Plan for EEG. She knows her name, date of , place where she is. Appears still sleepy. Not much pain in her neck. No fever or chills overnight. Able to eat something and keep down. No nausea or vomiting. No new motor deficit. Objective Vitals Vital Signs Date Time Temp Pulse Resp B/P (MAP) Pulse Ox O2 Delivery O2 Flow Rate FiO2 12/07/16 06:00 127 12/07/16 05:28 36 12/07/16 04:00 130 12/07/16 04:00 100.0 130 26 123/63 (83) 95 12/07/16 02:00 128 12/07/16 00:00 126 12/06/16 22:20 115 12/06/16 18:08 100.9 12/06/16 18:01 132 12/06/16 17:00 132 12/06/16 15:15 103.1 131 20 172/98 (122) 96 I/O 12/06/16 12/06/16 12/06/16 12/07/16 12/07/16 12/07/16 07:00 15:00 23:00 07:00 15:00 23:00 Intake Total 3100 ml 350 ml 536 ml 240 ml Output Total 1700 ml 1150 ml 500 ml Balance 1400 ml 350 ml -614 ml -260 ml Intake Oral 240 ml 240 ml IV Total 3100 ml 350 ml 296 ml Output Urine Total 1700 ml 1150 ml 500 ml # Bowel Movements 3 0 Result Diagram: 12/06/16 01512/06/16154 Imaging Last Impressions Brain MRI 12/06/161941 Signed Impressions: Service Date/Time: Tuesday, December 06, 2016 21:13 - CONCLUSION: 1. Chronic nonspecific white matter changes bilaterally and bilateral cortical atrophy.. 2. 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 Kenroy Luong MD Head CT 12/06/16199 Signed Impressions: Service Date/Time: Tuesday, December 06, 2016 03:15 - CONCLUSION: Motion degraded exam showing moderate white matter hypodensity of undetermined chronicity. Marcus Buchanan MD Chest X-Ray 12/06/16199 Signed Impressions: Service Date/Time: Tuesday, December 06, 2016 01:56 - CONCLUSION: No acute cardiopulmonary disease Marcus Buchanan MD Neck Ultrasound 12/06/16 Signed Impressions: Service Date/Time: Tuesday, December 06, 2016 08:06 - CONCLUSION: No abscess observed. Ultrasound evaluation for an abscess in this area is very difficult and an abscess can easily be occult by ultrasound evaluation. CT or MRI is more sensitive. Mukul Gary Jr., MD Lumbar Puncture Fluoroscopy 12/06/16 Signed Impressions: Service Date/Time: Tuesday, December 06, 2016 15:52 - CONCLUSION: Uncomplicated fluoroscopically guided lumbar puncture with pressures as above. Rg Paz MD Head/Brain Mag Res Venography 12/06/16 Signed Impressions: Service Date/Time: Tuesday, December 06, 2016 21:13 - CONCLUSION: Limited study. Grossly unremarkable exam. Kenroy Luong MD Head Magnetic Resonance Angiography 12/06/16 Signed Impressions: Service Date/Time: Tuesday, December 06, 2016 21:13 - CONCLUSION: Normal examination for a patient of this age. Kenroy Luong MD Hand X-Ray 12/06/16 Signed Impressions: Service Date/Time: Tuesday, December 06, 2016 20:04 - CONCLUSION: Extensive arthritis throughout the hand and wrist. Kenroy Luong MD Cervical Spine MRI 12/06/16 Signed Impressions: Service Date/Time: Tuesday, December 06, 2016 21:13 - CONCLUSION: Extremely limited MRI of the cervical spine. Kenroy Luong MD Abdomen/Pelvis CT 12/06/16 Signed Impressions: Service Date/Time: Tuesday, December 06, 2016 03:21 - CONCLUSION: No definite acute CT findings in the abdomen or pelvis. Marcus Buchanan MD Objective Remarks GENERAL: This is a well-nourished, well developed patient, in bed, appears sleepy however she is alert and oriented, appears in nad. SKIN: Bilateral lower extremity cellulitis, warm and red. Left lower extremity with yellow drain HEAD: Atraumatic. Normocephalic. Neck pain noted with movement EYES: Pupils equal round and reactive. Extraocular motions intact. ENT: Nose without bleeding, purulent drainage or septal hematoma.Neck with edema. Airway patent. NECK: Trachea midline. No JVD. CARDIOVASCULAR: Regular rate and rhythm without murmurs, gallops, or rubs. RESPIRATORY: Clear to auscultation. Breath sounds equal bilaterally. No wheezes , rales, or rhonchi. GASTROINTESTINAL: Abdomen soft, non-tender, nondistended. . No guarding. MUSCULOSKELETAL: Extremities without clubbing, cyanosis, or edema. No calf tenderness. NEUROLOGICAL: Alert and oriented. No nuchal rigidity. Motor and sensory grossly within normal limits. A/P Problem List: (1) Sepsis ICD Code: A41.9 - Sepsis, unspecified organism (2) Acute metabolic encephalopathy ICD Code: G93.41 - Metabolic encephalopathy (3) Cellulitis ICD Code: L03.90 - Cellulitis, unspecified Assessment and Plan 46 y/o female with a history of DM, HTN, MS (not fully diagnosed), C DIFF and RA was brought to the ED with altered mental status. Sepsis, wbc 14.9, lactic 3.6-->2.2, Tmax 102.4 source likely BLE cellulitis. patient with RA and poss on immunosuppressive Rx patient however with altered mental status pn admission and concern of meningitis/encephalitis. LP was done and poss viral meningitis/encephalitis, needs repeat LP per neuro -Vancomycin , ampicillin, fluconazole, acyclovir IV -CBC in AM -Cont IVF -Consult ID appreciate recommendations -Neck soft tissue US ordered to r/o abscess no abscess -Blood cultures pending -3L NS given in ED; repeat lactate nl - pt also has chronic on and off diarrhea- will send stool if she makes diarrhea to check for cdiff due to her hx of cdiff sepsis Acute metabolic encephalopathy, due sepsis Head CT reviewed and shows white matter hypodensity, due to artifact unknown if chronic Seizure, start levetiracetam. 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
--- NOTE | 2016-12-07 15:18 | HHI.IDPN ---
Subjective Subjective Remarks is a 46 y/o CM with PMHx of DM2, HTN, ? 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 secondary to prednisone. All reported to me by significant other who knows her for last 6 years. She used to walk 6 years back then subsequently became wheel chair bound for trips. The patient is now in crippling pain secondary to RA constant neck pain inability to move neck. She sleeps in her wheel chair and has not slept in bed for years. Patient is mostly wheel chair bound but is able to walk short distances.With this background patient was brought to the ED with altered mental status. Patient does not answer questions she just screams and yells. Patient significant other is at the bedside and able to answer questions and appears reliable. Significant other states yesterday she was lethargic, didn't want to wake up to eat. Was taken to [facility] at first and she began to wake up , blood work was not obtained because they could not get an IV. She was then discharged home once she started waking up. She did have bilateral LE cellulitis and was asked to continue Keflex. Within an hour after getting home she started to yell and complaining she was cold, then she began to yell and not make much sense. Significant other states she complained of the right side of her head hurting, along with mouth and tongue for the last 2 weeks. She does have chronic diarrhea and nausea, not more than normal. Patient screams even louder when neck is moved, family states she is always tender in her neck due to the ? hardware. She is on Cephalexin daily for prophylaxis for her cervical spine. Significant other states she behaved this way last time she was septic with c diff 1 year ago. Patient had abdominal distention upon arrival and a Ocampo was placed. UO 1700 cc per chart. ID consulted for evaluation and Mment of sepsis in IC pt, r/o meningoencephalitis. Overnight events reviewed. Fevers 101 F No rash No diarrhea Antibiotics Past Medical History DM HTN MS RA, immunocompromised Questionable CHF Osteoporosis Past Surgical History Cervical fusion 2007 Lines Line sites with no e.o infection Past Medical History reviewed Allergies: Coded Allergies: hydromorphone (Verified Allergy, Unknown, 12/06/16) metformin (Verified Allergy, Unknown, 12/06/16) Objective . Vital Signs Date Time Temp Pulse Resp B/P (MAP) Pulse Ox O2 Delivery O2 Flow Rate FiO2 12/07/16 06:00 127 12/07/16 05:28 36 12/07/16 04:00 130 12/07/16 04:00 100.0 130 26 123/63 (83) 95 12/07/16 02:00 128 12/07/16 00:00 126 12/06/16 22:20 115 12/06/16 18:08 100.9 12/06/16 18:01 132 12/06/16 17:00 132 . Laboratory Tests Test 12/06/16 01:55 12/07/16 00:41 White Blood Count 14.9 TH/MM3 Red Blood Count 4.69 MIL/MM3 Hemoglobin 11.2 GM/DL Hematocrit 36.1 % Mean Corpuscular Volume 77.0 FL Mean Corpuscular Hemoglobin 23.8 PG Mean Corpuscular Hemoglobin Concent 31.0 % Red Cell Distribution Width 17.5 % Platelet Count 346 TH/MM3 Mean Platelet Volume 7.7 FL Neutrophils (%) (Auto) 85.6 % Lymphocytes (%) (Auto) 9.1 % Monocytes (%) (Auto) 3.9 % Eosinophils (%) (Auto) 0.8 % Basophils (%) (Auto) 0.6 % Neutrophils # (Auto) 12.7 TH/MM3 Lymphocytes # (Auto) 1.4 TH/MM3 Monocytes # (Auto) 0.6 TH/MM3 Eosinophils # (Auto) 0.1 TH/MM3 Basophils # (Auto) 0.1 TH/MM3 CBC Comment DIFF FINAL Differential Comment Laboratory Tests Test 12/06/16 01:55 12/06/16 02:10 12/06/16 04:06 12/06/16 06:21 Blood Urea Nitrogen 7 MG/DL Creatinine 0.57 MG/DL Random Glucose 109 MG/DL Total Protein 6.4 GM/DL Albumin 2.9 GM/DL Calcium Level 8.6 MG/DL Magnesium Level 1.5 MG/DL Alkaline Phosphatase 103 U/L Aspartate Amino Transf (AST/SGOT) 14 U/L Alanine Aminotransferase (ALT/SGPT) 15 U/L Total Bilirubin 0.3 MG/DL Sodium Level 134 MEQ/L Potassium Level 3.7 MEQ/L Chloride Level 102 MEQ/L Carbon Dioxide Level 21.3 MEQ/L Anion Gap 11 MEQ/L Estimat Glomerular Filtration Rate 114 ML/MIN Total Creatine Kinase 62 U/L Troponin I LESS THAN 0.02 NG/ML C-Reactive Protein 5.67 MG/DL B-Type Natriuretic Peptide 92 PG/ML Lipase 54 U/L Thyroid Stimulating Hormone 3rd Gen 3.820 uIU/ML Lactic Acid Level 3.6 mmol/L 2.2 mmol/L 1.5 mmol/L Ammonia 17 MCMOL/L Test 12/06/16 16:40 Total Creatine Kinase 194 U/L Creatine Kinase MB 1.5 NG/ML Creatine Kinase MB % 0.8 % Troponin I 0.14 NG/ML C-Reactive Protein 16.20 MG/DL Microbiology Date/Time Source Procedure Growth Status 12/06/16 02:00 Blood Peripheral Aerobic Blood Culture - Preliminary NO GROWTH IN 1 DAY Resulted 12/06/16 02:00 Blood Peripheral Anaerobic Blood Culture - Preliminary NO GROWTH IN 1 DAY Resulted 12/06/16 01:34 Blood Peripheral Aerobic Blood Culture - Preliminary NO GROWTH IN 1 DAY Resulted 12/06/16 01:34 Blood Peripheral Anaerobic Blood Culture - Preliminary NO GROWTH IN 1 DAY Resulted 12/06/16 15:52 Cerebral Spinal Fluid Lumbar Puncture Fungal Smear - Final NO FUNGAL ELEMENTS SEEN. Resulted 12/06/16 15:52 Cerebral Spinal Fluid Lumbar Puncture Fungal Culture Pending Resulted 12/06/16 15:52 Cerebral Spinal Fluid Lumbar Puncture Acid Fast Stain Pending Received 12/06/16 15:52 Cerebral Spinal Fluid Lumbar Puncture Mycobacterial Culture Pending Received 12/06/16 15:52 Cerebral Spinal Fluid Lumbar Puncture Gram Stain - Final Resulted 12/06/16 15:52 Cerebral Spinal Fluid Lumbar Puncture CSF Culture - Preliminary NO GROWTH IN 24 HOURS. Resulted 12/06/16 06:20 Wound Leg Gram Stain - Final Resulted 12/06/16 06:20 Wound Culture - Preliminary Gram Negative [place] Resulted Imaging Last Impressions Brain MRI 12/06/161941 Signed Impressions: Service Date/Time: Tuesday, December 06, 2016 21:13 - CONCLUSION: 1. Chronic nonspecific white matter changes bilaterally and bilateral cortical atrophy.. 2. 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 Kenroy Luong MD Head CT 12/06/16 0200 Signed Impressions: Service Date/Time: Tuesday, December 06, 2016 03:15 - CONCLUSION: Motion degraded exam showing moderate white matter hypodensity of undetermined chronicity. Marcus Buchanan MD Chest X-Ray 12/06/160 Signed Impressions: Service Date/Time: Tuesday, December 06, 2016 01:56 - CONCLUSION: No acute cardiopulmonary disease Marcus Buchanan MD Neck Ultrasound 12/06/16 Signed Impressions: Service Date/Time: Tuesday, December 06, 2016 08:06 - CONCLUSION: No abscess observed. Ultrasound evaluation for an abscess in this area is very difficult and an abscess can easily be occult by ultrasound evaluation. CT or MRI is more sensitive. Mukul Gary Jr., MD Lumbar Puncture Fluoroscopy 12/06/16 Signed Impressions: Service Date/Time: Tuesday, December 06, 2016 15:52 - CONCLUSION: Uncomplicated fluoroscopically guided lumbar puncture with pressures as above. Rg Paz MD Head/Brain Mag Res Venography 12/06/16 Signed Impressions: Service Date/Time: Tuesday, December 06, 2016 21:13 - CONCLUSION: Limited study. Grossly unremarkable exam. Kenroy Luong MD Head Magnetic Resonance Angiography 12/06/16 Signed Impressions: Service Date/Time: Tuesday, December 06, 2016 21:13 - CONCLUSION: Normal examination for a patient of this age. Kenroy Luong MD Hand X-Ray 12/06/16 Signed Impressions: Service Date/Time: Tuesday, December 06, 2016 20:04 - CONCLUSION: Extensive arthritis throughout the hand and wrist. Kenroy Luong MD Cervical Spine MRI 12/06/16 Signed Impressions: Service Date/Time: Tuesday, December 06, 2016 21:13 - CONCLUSION: Extremely limited MRI of the cervical spine. Kenroy Luong MD Abdomen/Pelvis CT 12/06/16 Signed Impressions: Service Date/Time: Tuesday, December 06, 2016 03:21 - CONCLUSION: No definite acute CT findings in the abdomen or pelvis. Marcus Buchanan MD Physical Exam GENERAL: Obese, Cushingoid appearing patient, in significant distress due to pain possibly. No cardiopulm distress. SKIN: Bilateral LE with erythema, induration. Left side leg with 2 ulcerations noted and some active discharge. Joints with significant deformities [place] of upper extremities. Upper extremity again difficult to assess but area of chronic scabbing with surrounding erythema. HEAD: Atraumatic. Normocephalic. No temporal or scalp tenderness. EYES: Pupils equal round and reactive. Extraocular motions intact. No scleral icterus. No injection or drainage. ENT: Nose without bleeding, purulent drainage. Mouth with significant erythema s.o mucositis. Patient would not open her mouth and jerked my hand. NECK: Trachea midline. Large neck. No lymphadenopathy. Supple, tender, ? neck stiffness: difficult to assess accurately as even on touching her neck which appeared stiff she would writhing in pain and jerked my hand off. CARDIOVASCULAR: Regular rate and rhythm without murmurs. RESPIRATORY: Clear to auscultation. Breath sounds equal bilaterally. No wheezes , rales, or rhonchi. GASTROINTESTINAL: Abdomen soft, non-tender, nondistended. MUSCULOSKELETAL: Extremities without clubbing, cyanosis, or edema. Rest as described under skin section. NEUROLOGICAL: Awake and alert. ? orientation. Did not follow commands for me. Psych: appears very uncomfortable, anxious. Screaming and yelling "hurry up". Difficult to comprehend what she was trying to say. IV line sites with no e.o infection. Assessment & Plan Remarks Severe Sepsis present on admission. Possible meningoencephalitis, has a reported hardware in neck or had it and was removed. ? Epidural abscess/Spine Osteomyelitis. Cellulitis bilateral LE. Immune compromised. RA on Prednisone and leflunomide. Acute encephalopathy: infection, sepsis. Recs: Unfortunately MRI brain was changed to non contrast. MRI C spine negative. 2D ECHO. Consider stress dose steroids as pt appears Cushingoid and is in sepsis. Reviewed available imaging. Continue Zosyn IV for cellulitis/aspiration. Continue Vanco IV for cellulitis. DC Ampicillin IV Continue IV acyclovir. Follow CSF HSV PCR Follow CSF VDRL Follow CSF STANISLAW virus (Immune compromised on fdc steroids) Follow cultures Follow clinically. Priscilla Corey MD Dec 07, 2016 15:18
--- NOTE | 2016-12-07 16:39 | MG ---
cc: JAYMIE STEEL M.D. Lab No: Date: 12/07/2016 Age: 46 Sex: F Race: EEG was obtained this 46-year-old patient being evaluated for encephalopathy, sepsis, multiple sclerosis. The patient is awake and asleep. The EEG is showing intermixed theta rhythms with alpha and beta activity. There are some sharp waves with phase reversal on the left frontotemporal head region seen occasionally. There is probably slower rhythms on the left than right. Hyperventilation was not performed. Photic stimulation was unremarkable. INTERPRETATION Abnormal EEG because of a bilateral slowing maximum on the left with some phase reversal of and sharp discharges of equivocal epileptiform significance, out of the left frontotemporal head regions. MD CHANI Ureña/deirdre /4:21 PM /4:26 PM
[2016-12-07] MEDS: INSULIN ASPART SUPPLEMENTAL SCALE SQ SCH ×2 (18:00→21:32)
[2016-12-07] MEDS: FLUCONAZOLE 100 MG PREMIX BAG 50 ML IV SCH (18:24)
[2016-12-07] MEDS: INSULIN DETEMIR 100 UNITS/ML VIAL SQ SCH (20:23)
[2016-12-07] MEDS ORDERED: VANCOMYCIN INJ 1,250 MG in SODIUM CHLOR 0.9% 250 ML INJ 250 ML IV SCH (21:00)
[2016-12-07 23:47] LABS: C. DIFF EPI 027 PRESUMPTIVE NEGATIVE (NEGATIVE)
[2016-12-08] VITALS (12 sets, daily range): BP systolic 130–160; BP diastolic 62–83; PULSE 75–84; RESP 20–25; TEMP 96.8–98.5; O2SAT 97–100
[2016-12-08] MEDS: ACYCLOVIR INJ 600 MG in SODIUM CHLORIDE 0.9% INJ 100 ML IV SCH ×3 (01:33→16:05)
[2016-12-08] MEDS: PIPERACIL-TAZO 4.5 GM PREMIX 100 ML IV SCH ×4 (01:33→20:41)
--- NOTE | 2016-12-08 01:45 | PD.PROCEDR ---
Procedure Note Procedure DATE: 12/08/16 CENTRAL LINE PLACEMENT: Left IJ vein. Ultrasound-guided INDICATION: Central venous access CONSENT Informed consent for procedure was obtained from patient's daughter after discussion of risks, benefits, alternatives. Signed consent is on the chart. DESCRIPTION OF THE PROCEDURE The patient was placed in supine position, mild Trendelenburg. The skin was cleansed with Chloraprep 4. Additional barrier precautions included large sterile drape, sterile gloves, sterile gown, face mask, and hat. 1 % lidocaine was used for local anesthesia. Under direct ultrasound guidance and on single attempt, the vein was accessed with an introducer needle. The guidewire advanced to 10 cm and then met resistance. Needle and wire were removed. Accessed vein again on second attempt and wire advanced easily. Some PVC's noted on monitor when wire at 25 cm and was retracted slightly and they ceased. Using Seldinger technique a 7 Nepali 20 cm antimicrobial coated triple-lumen catheter was advanced to a depth of 18 centimeters. The guide wire was removed. All ports had good return of dark venous blood and flushed easily with saline. The central line was secured with 2.0 silk. A sterile dressing with antibiotic disc was applied. ESTIMATED BLOOD LOSS: Minimal COMPLICATIONS: No apparent complications. STAT chest x-ray demonstrates satisfactory Central venous line position without apparent complication Karla Ashton MD Dec 08, 2016 01:45
[2016-12-08] MEDS ORDERED: SODIUM CHLOR 0.9% 1000 ML INJ 1,000 ML IV ONE (02:00)
--- NOTE | 2016-12-08 03:06 | RADRPT ---
EXAM DATE/TIME: 12/08/2016 01:26 [facility] COMPARISON: CHEST SINGLE AP, December 06, 2016, 1:56. INDICATIONS : Evaluate for central line placement. MEDICAL HISTORY : None. SURGICAL HISTORY : None. ENCOUNTER: Subsequent ACUITY: 1 day PAIN SCORE: Non-responsive. LOCATION: chest FINDINGS: Left central line in superior vena cava. Minimal basal atelectasis or scarring. Cardiomegaly. No effu gabrielle. No pneumothorax. Previous spinal fixation. CONCLUSION: 1. Left central line in superior vena cava without pneumothorax. Baljeet Yap MD on December 08, 2016 at 3:04 Board Certified Radiologist. This report was verified electronically.
[2016-12-08 05:04] LABS: AUTOMATED NEUTROPHIL # 9.5 TH/MM3 (1.8-7.7); BASOPHIL % 0.1 % (0.0-2.0); EOSINOPHIL % 0.1 % (0.0-4.0); HEMO FLAGS DIFF FINAL; LYMPH % 2.8 % (9.0-44.0); LYMPHOCYTE # 0.3 TH/MM3 (1.0-4.8); MEAN CELL VOLUME 76.9 FL (80.0-100.0); MEAN CORPUSCULAR HEMOGLOBIN 24.4 PG (27.0-34.0); MEAN CORPUSCULAR HGB CONC 31.8 % (32.0-36.0); MONO % 2.8 % (0.0-8.0); NEUT % 94.2 % (16.0-70.0); PLATELET COUNT 198 TH/MM3 (150-450); RED BLOOD COUNT 3.39 MIL/MM3 (4.00-5.30); RED CELL DISTRIBUTION WIDTH 17.7 % (11.6-17.2); WHITE BLOOD COUNT 10.1 TH/MM3 (4.0-11.0)
[2016-12-08] MEDS: metroNIDAZOLE 500 MG INJ 100 ML IV SCH ×2 (05:15→12:50)
[2016-12-08] MEDS ORDERED: FUROSEMIDE 20 MG/2 ML VIAL IV PUSH ONE (05:30)
[2016-12-08] MEDS: DILTIAZEM HCL 25 MG/5 ML VIAL IV SCH ×3 (05:49→21:05)
[2016-12-08 07:08] LABS: RHEUMATOID FACTOR TRIGGER 16.1 IU/ML (0.0-14.9)
--- NOTE | 2016-12-08 07:20 | HHI.PR ---
Subjective Remarks afeb Objective Vital Signs Date Time Temp Pulse Resp B/P (MAP) Pulse Ox O2 Delivery O2 Flow Rate FiO2 12/08/16 04:00 97.3 75 21 130/62 (84) 97 12/08/16 00:00 96.8 78 25 142/70 (94) 97 12/07/16 20:17 96 Nasal Cannula 2.00 12/07/16 20:00 98.4 84 21 116/57 (76) 95 12/07/16 20:00 85 12/07/16 18:00 86 12/07/16 16:00 88 12/07/16 16:00 98.7 88 25 115/58 (77) 97 12/07/16 14:00 90 12/07/16 12:00 101.0 94 29 131/61 (84) 94 12/07/16 12:00 94 12/07/16 10:00 90 12/07/16 08:00 98.6 114 24 102/59 (73) 98 12/07/16 08:00 114 I/O 12/07/16 12/07/16 12/07/16 12/08/16 12/08/16 12/08/16 07:00 15:00 23:00 07:00 15:00 23:00 Intake Total 240 ml 766 ml 340 ml 2631 ml Output Total 500 ml 450 ml 375 ml Balance -260 ml 766 ml -110 ml 2256 ml Intake Oral 240 ml 240 ml 100 ml IV Total 766 ml 100 ml 2531 ml Output Urine Total 500 ml 450 ml 375 ml # Bowel Movements 0 0 3 Result Diagram: 12/08/16 0440 12/06/16 0155 Objective Remarks awake pupil = left ptosis similar to last pm awakens and sticks out tongue and up arms and legs for me 2016 not month Assessment and Plan Assessment and Plan imp LP 15 wbc but protein markedly inc to 172 68L on abt id on board may be viral encephalitis i think solumedrol day 2 rec send off viral titers if enough csf echo neg eeg some sharps keppra started mra and mrv neg small left TS mri brain 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 ms i think unlikley and viral titers i would keep in icu over weekend plRg An MD Dec 08, 2016 07:20
[2016-12-08] MEDS: INSULIN ASPART SUPPLEMENTAL SCALE SQ SCH ×4 (08:00→21:00)
[2016-12-08 08:20] LABS: HSV 1,PCR Negative (Negative)
[2016-12-08] MEDS: predniSONE 5 MG TAB PO SCH ×2 (08:31→20:41)
[2016-12-08] MEDS: LEFLUNOMIDE 20 MG TAB PO SCH (08:31)
[2016-12-08] MEDS: levETIRAcetam 1000 MG INJ 100 ML IV SCH ×2 (08:31→20:41)
[2016-12-08] MEDS: methylPREDNISolone SO SUCC INJ 1,000 MG in DEXTROSE 5% IN WATER 100ML INJ 100 ML IV SCH ×2 (08:31)
[2016-12-08] MEDS: PANTOPRAZOLE SOD 40 MG DELAYED RELEASE TAB PO SCH (08:31)
[2016-12-08] MEDS: GABAPENTIN 400 MG CAP PO SCH ×3 (08:32→17:35)
[2016-12-08] MEDS: SODIUM CHLOR 0.9% 1000 ML INJ 1,000 ML IV SCH ×4 (08:32→17:35)
[2016-12-08] MEDS: METOPROLOL TARTRATE 50 MG TAB PO SCH ×2 (08:32→20:41)
[2016-12-08] MEDS: LACTOBACILLUS ACIDOPHILUS TAB PO SCH ×3 (08:32→17:35)
[2016-12-08] MEDS: DOCUSATE SODIUM 50 MG/SENNA 8.6 MG TAB PO SCH ×2 (08:32→20:42)
[2016-12-08] MEDS: CITALOPRAM HYDROBROMIDE 20 MG TAB PO SCH (08:32)
[2016-12-08] MEDS: SODIUM CHLORIDE 0.9% FLUSH 10 ML FLUSH IV FLUSH SCH ×2 (08:33→20:41)
[2016-12-08 08:35] LABS: ALKALINE PHOSPHATASE 69 U/L (45-117); ALT (GPT) 13 U/L (10-53); AST (GOT) 11 U/L (15-37); BLOOD UREA NITROGEN 18 MG/DL (7-18); CALCIUM-PROTEIN CORRECTED 8.4 MG/DL (8.5-10.1); GLOMERULAR FILTRATION RATE 118 ML/MIN (>89); MAGNESIUM 1.6 MG/DL (1.5-2.5)
[2016-12-08 08:36] LABS: ANION GAP 12 MEQ/L (5-15); BICARBONATE 19.3 MEQ/L (21.0-32.0); CHLORIDE 112 MEQ/L (98-107); FREE T4 1.51 NG/DL (0.76-1.46); SODIUM (NA) 143 MEQ/L (136-145); TOTAL BILIRUBIN ADULT 0.3 MG/DL (0.2-1.0)
[2016-12-08 08:38] LABS: POTASSIUM 2.7 MEQ/L (3.5-5.1)
[2016-12-08] MEDS ORDERED: PHARMACY ORDERED LAB ONE (08:45)
[2016-12-08] MEDS ORDERED: POTASSIUM PHOSPHATE MONOBASIC 500 MG TAB PO PRN (09:30)
[2016-12-08] MEDS ORDERED: MAGNESIUM SULFATE INJ 2 GM in SODIUM CHLORIDE 0.9% INJ 96 ML IV PRN (09:30)
[2016-12-08] MEDS ORDERED: SODIUM PHOSPHATE INJ 30 MMOL in SODIUM CHLOR 0.9% 250 ML INJ 240 ML IV PRN (09:30)
[2016-12-08] MEDS ORDERED: MAGNESIUM SULFATE INJ 4 GM in SODIUM CHLORIDE 0.9% INJ 92 ML IV PRN (09:30)
[2016-12-08] MEDS ORDERED: POTASSIUM PHOSPHATE INJ 30 MMOL in SODIUM CHLOR 0.9% 250 ML INJ 250 ML IV PRN (09:30)
[2016-12-08] MEDS ORDERED: POTASSIUM PHOSPHATE MONOBASIC 500 MG TAB PO/TUBE PRN (09:30)
[2016-12-08] MEDS ORDERED: MAGNESIUM OXIDE 400 MG TAB PO PRN (09:30)
[2016-12-08] MEDS ORDERED: POTASSIUM CHLOR 20 MEQ PREMIX 100 ML IV PRN ×2 (09:30)
[2016-12-08] MEDS ORDERED: POTASSIUM CHLORIDE 25 MEQ EFFERVESCENT TAB PO PRN (09:30)
--- NOTE | 2016-12-08 10:22 | HHI.PR ---
Subjective Remarks In bed appears tired, however she is more awake and alert since yesterday. Says she feels some improvement since yesterday, also family at bedside. Patient with neck mcbride however says eh has fusion surgery in her neck and thinks is related. No headache. No more fevrs or chills overnight. No n/v/d/c. Denies chest pain or sob. No headache., No seizures overnight. Did not eat much .K is low. Also patient says he has h/o low K and mag, will check also mag and replenish per ICU electrolytes protocol. Objective Vitals Vital Signs Date Time Temp Pulse Resp B/P (MAP) Pulse Ox O2 Delivery O2 Flow Rate FiO2 12/08/16 07:00 97 Nasal Cannula 2.00 12/08/16 04:00 97.3 75 21 130/62 (84) 97 12/08/16 00:00 96.8 78 25 142/70 (94) 97 12/07/16 20:17 96 Nasal Cannula 2.00 12/07/16 20:00 98.4 84 21 116/57 (76) 95 12/07/16 20:00 85 12/07/16 18:00 86 12/07/16 16:00 88 12/07/16 16:00 98.7 88 25 115/58 (77) 97 12/07/16 14:00 90 12/07/16 12:00 101.0 94 29 131/61 (84) 94 12/07/16 12:00 94 I/O 12/07/16 12/07/16 12/07/16 12/08/16 12/08/16 12/08/16 07:00 15:00 23:00 07:00 15:00 23:00 Intake Total 240 ml 766 ml 340 ml 2631 ml Output Total 500 ml 450 ml 375 ml Balance -260 ml 766 ml -110 ml 2256 ml Intake Oral 240 ml 240 ml 100 ml IV Total 766 ml 100 ml 2531 ml Output Urine Total 500 ml 450 ml 375 ml # Bowel Movements 0 0 3 Result Diagram: 12/08/160 12/08/16439 Imaging Last Impressions Chest X-Ray 12/08/16 0000 Signed Impressions: Service Date/Time: Thursday, December 08, 2016 01:26 - CONCLUSION: 1. Left central line in superior vena cava without pneumothorax. Baljeet Yap MD Brain MRI 12/06/16 194 Signed Impressions: Service Date/Time: Tuesday, December 06, 2016 21:13 - CONCLUSION: 1. Chronic nonspecific white matter changes bilaterally and bilateral cortical atrophy.. 2. 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 Kenroy Luong MD Head CT 12/06/16 0200 Signed Impressions: Service Date/Time: Tuesday, December 06, 2016 03:15 - CONCLUSION: Motion degraded exam showing moderate white matter hypodensity of undetermined chronicity. Marcus Buchanan MD Neck Ultrasound 12/06/16 Signed Impressions: Service Date/Time: Tuesday, December 06, 2016 08:06 - CONCLUSION: No abscess observed. Ultrasound evaluation for an abscess in this area is very difficult and an abscess can easily be occult by ultrasound evaluation. CT or MRI is more sensitive. Mukul Gary Jr., MD Lumbar Puncture Fluoroscopy 12/06/16 Signed Impressions: Service Date/Time: Tuesday, December 06, 2016 15:52 - CONCLUSION: Uncomplicated fluoroscopically guided lumbar puncture with pressures as above. Rg Paz MD Head/Brain Mag Res Venography 12/06/16 Signed Impressions: Service Date/Time: Tuesday, December 06, 2016 21:13 - CONCLUSION: Limited study. Grossly unremarkable exam. Kenroy Luong MD Head Magnetic Resonance Angiography 12/06/16 Signed Impressions: Service Date/Time: Tuesday, December 06, 2016 21:13 - CONCLUSION: Normal examination for a patient of this age. Kenroy Luong MD Hand X-Ray 12/06/16 Signed Impressions: Service Date/Time: Tuesday, December 06, 2016 20:04 - CONCLUSION: Extensive arthritis throughout the hand and wrist. Kenroy Luong MD Cervical Spine MRI 12/06/16 Signed Impressions: Service Date/Time: Tuesday, December 06, 2016 21:13 - CONCLUSION: Extremely limited MRI of the cervical spine. Kenroy Luong MD Abdomen/Pelvis CT 12/06/16 Signed Impressions: Service Date/Time: Tuesday, December 06, 2016 03:21 - CONCLUSION: No definite acute CT findings in the abdomen or pelvis. Marcus Buchanan MD Objective Remarks GENERAL: This is a well-nourished, well developed patient, in bed, appears sleepy however she is alert and oriented, appears in nad. SKIN: Bilateral lower extremity cellulitis, warm and red. Left lower extremity with yellow drain HEAD: Atraumatic. Normocephalic. Neck pain noted with movement EYES: Pupils equal round and reactive. Extraocular motions intact. ENT: Nose without bleeding, purulent drainage or septal hematoma.Neck with edema. Airway patent. NECK: Trachea midline. No JVD. CARDIOVASCULAR: Regular rate and rhythm without murmurs, gallops, or rubs. RESPIRATORY: Clear to auscultation. Breath sounds equal bilaterally. No wheezes , rales, or rhonchi. GASTROINTESTINAL: Abdomen soft, non-tender, nondistended. . No guarding. MUSCULOSKELETAL: Extremities without clubbing, cyanosis, or edema. No calf tenderness. NEUROLOGICAL: Alert and oriented. No nuchal rigidity. Motor and sensory grossly within normal limits. A/P Problem List: (1) Sepsis ICD Code: A41.9 - Sepsis, unspecified organism (2) Acute metabolic encephalopathy ICD Code: G93.41 - Metabolic encephalopathy (3) Cellulitis ICD Code: L03.90 - Cellulitis, unspecified Assessment and Plan 46 y/o female with a history of DM, HTN, MS (not fully diagnosed), C DIFF and RA was brought to the ED with altered mental status. Sepsis, wbc 14.9, lactic 3.6-->2.2, Tmax 102.4 source likely BLE cellulitis. patient with RA and poss on immunosuppressive Rx patient however with altered mental status pn admission and concern of meningitis/encephalitis. LP was done and poss viral meningitis/encephalitis, needs repeat LP per neuro -Vancomycin, zosyn, acyclovir IV. Added flagyl as patient with C diff -CBC in AM -Cont IVF -Consult ID appreciate recommendations -Neck soft tissue US ordered to r/o abscess no abscess -Blood cultures pending -3L NS given in ED; repeat lactate nl - pt also has chronic on and off diarrhea- hx of cdiff sepsis. Positive C diff this admission treat with flagyl Hypokalemia. Replace. Monitr and replace as need. Check mag, replace if low. Acute metabolic encephalopathy, due sepsis Head CT reviewed and shows white matter hypodensity, due to artifact unknown if chronic Seizure, start levetiracetam. 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 Monitor closely UOP UA normal Abdominal CT reviewed and shows no acute disease -Cont barajas and strict I&Os Chronic diarrhea, hx of c diff -C diff positive. Start flagyl RA, chronic -Patients daughter will bring list of medications in today to be resumed DVT prophylaxis: SCDs Discussed Condition With Patient, ICU nurse Problem Qualifiers (1) Sepsis: Qualified Codes: A41.9 - Sepsis, unspecified organism Zoila Rubalcava MD Dec 08, 2016 10:22
[2016-12-08] MEDS: POTASSIUM CHLOR 40 MEQ PREMIX 100 ML IV PRN ×2 (10:51→20:41)
[2016-12-08 11:55] LABS: ANA SCREEN NEG (NEG)
[2016-12-08] MEDS ORDERED: CALCIUM GLUCONATE INJ 1 GM in SODIUM CHLORIDE 0.9% INJ 100 ML IV ONE (12:00)
[2016-12-08 12:40] LABS: MAGNESIUM 1.6 MG/DL (1.5-2.5)
--- NOTE | 2016-12-08 15:37 | HHI.IDPN ---
Subjective Subjective Remarks is a 46 y/o CM with PMHx of DM2, HTN, ? 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 secondary to prednisone. All reported to me by significant other who knows her for last 6 years. She used to walk 6 years back then subsequently became wheel chair bound for trips. The patient is now in crippling pain secondary to RA constant neck pain inability to move neck. She sleeps in her wheel chair and has not slept in bed for years. Patient is mostly wheel chair bound but is able to walk short distances.With this background patient was brought to the ED with altered mental status. Patient does not answer questions she just screams and yells. Patient significant other is at the bedside and able to answer questions and appears reliable. Significant other states yesterday she was lethargic, didn't want to wake up to eat. Was taken to [facility] at first and she began to wake up , blood work was not obtained because they could not get an IV. She was then discharged home once she started waking up. She did have bilateral LE cellulitis and was asked to continue Keflex. Within an hour after getting home she started to yell and complaining she was cold, then she began to yell and not make much sense. Significant other states she complained of the right side of her head hurting, along with mouth and tongue for the last 2 weeks. She does have chronic diarrhea and nausea, not more than normal. Patient screams even louder when neck is moved, family states she is always tender in her neck due to the ? hardware. She is on Cephalexin daily for prophylaxis for her cervical spine. Significant other states she behaved this way last time she was septic with c diff 1 year ago. Patient had abdominal distention upon arrival and a Ocampo was placed. UO 1700 cc per chart. ID consulted for evaluation and Mment of sepsis in IC pt, r/o meningoencephalitis. Overnight events reviewed. Fevers 101 F No rash No diarrhea Antibiotics Past Medical History DM HTN MS RA, immunocompromised Questionable CHF Osteoporosis Past Surgical History Cervical fusion 2007 Lines Line sites with no e.o infection Past Medical History reviewed Allergies: Coded Allergies: hydromorphone (Verified Allergy, Unknown, 12/06/16) metformin (Verified Allergy, Unknown, 12/06/16) Objective . Vital Signs Date Time Temp Pulse Resp B/P (MAP) Pulse Ox O2 Delivery O2 Flow Rate FiO2 12/08/16 14:00 76 12/08/16 12:00 97.8 80 23 130/63 (85) 99 12/08/16 12:00 80 12/08/16 10:00 76 12/08/16 08:00 97.6 84 23 141/66 (91) 99 12/08/16 08:00 84 12/08/16 07:00 97 Nasal Cannula 2.00 12/08/16 04:00 97.3 75 21 130/62 (84) 97 12/08/16 00:00 96.8 78 25 142/70 (94) 97 12/07/16 20:17 96 Nasal Cannula 2.00 12/07/16 20:00 98.4 84 21 116/57 (76) 95 12/07/16 20:00 85 12/07/16 18:00 86 12/07/16 16:00 88 12/07/16 16:00 98.7 88 25 115/58 (77) 97 . Laboratory Tests Test 12/07/16 00:41 12/08/16 04:40 Erythrocyte Sedimentation Rate 47 mm/hr White Blood Count 10.1 TH/MM3 Red Blood Count 3.39 MIL/MM3 Hemoglobin 8.3 GM/DL Hematocrit 26.0 % Mean Corpuscular Volume 76.9 FL Mean Corpuscular Hemoglobin 24.4 PG Mean Corpuscular Hemoglobin Concent 31.8 % Red Cell Distribution Width 17.7 % Platelet Count 198 TH/MM3 Mean Platelet Volume 8.0 FL Neutrophils (%) (Auto) 94.2 % Lymphocytes (%) (Auto) 2.8 % Monocytes (%) (Auto) 2.8 % Eosinophils (%) (Auto) 0.1 % Basophils (%) (Auto) 0.1 % Neutrophils # (Auto) 9.5 TH/MM3 Lymphocytes # (Auto) 0.3 TH/MM3 Monocytes # (Auto) 0.3 TH/MM3 Eosinophils # (Auto) 0.0 TH/MM3 Basophils # (Auto) 0.0 TH/MM3 CBC Comment DIFF FINAL Differential Comment Laboratory Tests Test 12/06/16 16:40 12/08/16 04:40 12/08/16 08:45 Total Creatine Kinase 194 U/L Creatine Kinase MB 1.5 NG/ML Creatine Kinase MB % 0.8 % Troponin I 0.14 NG/ML C-Reactive Protein 16.20 MG/DL Blood Urea Nitrogen 18 MG/DL Creatinine 0.55 MG/DL Random Glucose 182 MG/DL Total Protein 4.8 GM/DL Albumin 1.6 GM/DL Calcium Level 7.1 MG/DL Phosphorus Level 2.8 MG/DL 2.6 MG/DL Magnesium Level 1.6 MG/DL 1.6 MG/DL Alkaline Phosphatase 69 U/L Aspartate Amino Transf (AST/SGOT) 11 U/L Alanine Aminotransferase (ALT/SGPT) 13 U/L Total Bilirubin 0.3 MG/DL Sodium Level 143 MEQ/L Potassium Level 2.7 MEQ/L Chloride Level 112 MEQ/L Carbon Dioxide Level 19.3 MEQ/L Anion Gap 12 MEQ/L Estimat Glomerular Filtration Rate 118 ML/MIN Protein Corrected Calcium 8.4 MG/DL Vitamin B12 Level 1102 PG/ML Free Thyroxine 1.51 NG/DL Thyroid Stimulating Hormone 3rd Gen 0.421 uIU/ML Microbiology Date/Time Source Procedure Growth Status 12/06/16 02:00 Blood Peripheral Aerobic Blood Culture - Preliminary NO GROWTH IN 2 DAYS Resulted 12/06/16 02:00 Blood Peripheral Anaerobic Blood Culture - Preliminary NO GROWTH IN 2 DAYS Resulted 12/06/16 01:34 Blood Peripheral Aerobic Blood Culture - Preliminary NO GROWTH IN 2 DAYS Resulted 12/06/16 01:34 Blood Peripheral Anaerobic Blood Culture - Preliminary NO GROWTH IN 2 DAYS Resulted 12/06/16 15:52 Cerebral Spinal Fluid Lumbar Puncture Fungal Smear - Final NO FUNGAL ELEMENTS SEEN. Resulted 12/06/16 15:52 Cerebral Spinal Fluid Lumbar Puncture Fungal Culture Pending Resulted 12/06/16 15:52 Cerebral Spinal Fluid Lumbar Puncture Acid Fast Stain - Final NO ACID FAST BACILLI SEEN Resulted 12/06/16 15:52 Cerebral Spinal Fluid Lumbar Puncture Mycobacterial Culture Pending Resulted 12/06/16 15:52 Cerebral Spinal Fluid Lumbar Puncture Gram Stain - Final Resulted 12/06/16 15:52 Cerebral Spinal Fluid Lumbar Puncture CSF Culture - Preliminary NO GROWTH IN 48 HOURS. Resulted 12/06/16 06:20 Wound Leg Gram Stain - Final Resulted 12/06/16 06:20 Wound Culture - Preliminary Serratia Marcescens Gram Negative Ol[place]inka Resulted Imaging Last Impressions Brain MRI 12/06/161941 Signed Impressions: Service Date/Time: Tuesday, December 06, 2016 21:13 - CONCLUSION: 1. Chronic nonspecific white matter changes bilaterally and bilateral cortical atrophy.. 2. 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 Kenroy Luong MD Head CT 12/06/16199 Signed Impressions: Service Date/Time: Tuesday, December 06, 2016 03:15 - CONCLUSION: Motion degraded exam showing moderate white matter hypodensity of undetermined chronicity. Marcus Buchanan MD Chest X-Ray 12/06/16199 Signed Impressions: Service Date/Time: Tuesday, December 06, 2016 01:56 - CONCLUSION: No acute cardiopulmonary disease Marcus Buchanan MD Neck Ultrasound 12/06/16 Signed Impressions: Service Date/Time: Tuesday, December 06, 2016 08:06 - CONCLUSION: No abscess observed. Ultrasound evaluation for an abscess in this area is very difficult and an abscess can easily be occult by ultrasound evaluation. CT or MRI is more sensitive. Mukul Gary Jr., MD Lumbar Puncture Fluoroscopy 12/06/16 Signed Impressions: Service Date/Time: Tuesday, December 06, 2016 15:52 - CONCLUSION: Uncomplicated fluoroscopically guided lumbar puncture with pressures as above. Rg Paz MD Head/Brain Mag Res Venography 12/06/16 Signed Impressions: Service Date/Time: Tuesday, December 06, 2016 21:13 - CONCLUSION: Limited study. Grossly unremarkable exam. Kenroy Luong MD Head Magnetic Resonance Angiography 12/06/16 Signed Impressions: Service Date/Time: Tuesday, December 06, 2016 21:13 - CONCLUSION: Normal examination for a patient of this age. Kenroy Luong MD Hand X-Ray 12/06/16 Signed Impressions: Service Date/Time: Tuesday, December 06, 2016 20:04 - CONCLUSION: Extensive arthritis throughout the hand and wrist. Kenroy Luong MD Cervical Spine MRI 12/06/16 Signed Impressions: Service Date/Time: Tuesday, December 06, 2016 21:13 - CONCLUSION: Extremely limited MRI of the cervical spine. Kenroy Luong MD Abdomen/Pelvis CT 10/11/17 0000 Signed Impressions: Service Date/Time: Tuesday, December 06, 2016 03:21 - CONCLUSION: No definite acute CT findings in the abdomen or pelvis. Marcus Buchanan MD Physical Exam GENERAL: Obese, Cushingoid appearing patient, in significant distress due to pain possibly. No cardiopulm distress. SKIN: Bilateral LE with erythema, induration. Left side leg with 2 ulcerations noted and some active discharge. Joints with significant deformities [place] of upper extremities. Upper extremity again difficult to assess but area of chronic scabbing with surrounding erythema. HEAD: Atraumatic. Normocephalic. No temporal or scalp tenderness. EYES: Pupils equal round and reactive. Extraocular motions intact. No scleral icterus. No injection or drainage. ENT: Nose without bleeding, purulent drainage. Mouth with significant erythema s.o mucositis. Patient would not open her mouth and jerked my hand. NECK: Trachea midline. Large neck. No lymphadenopathy. Supple, tender, ? neck stiffness: difficult to assess accurately as even on touching her neck which appeared stiff she would writhing in pain and jerked my hand off. CARDIOVASCULAR: Regular rate and rhythm without murmurs. RESPIRATORY: Clear to auscultation. Breath sounds equal bilaterally. No wheezes , rales, or rhonchi. GASTROINTESTINAL: Abdomen soft, non-tender, nondistended. MUSCULOSKELETAL: Extremities without clubbing, cyanosis, or edema. Rest as described under skin section. NEUROLOGICAL: Awake and alert. ? orientation. Did not follow commands for me. Psych: appears very uncomfortable, anxious. Screaming and yelling "hurry up". Difficult to comprehend what she was trying to say. IV line sites with no e.o infection. Assessment & Plan Remarks Severe Sepsis present on admission. Possible meningoencephalitis, has a reported hardware in neck or had it and was removed. ? Epidural abscess/Spine Osteomyelitis. Cellulitis bilateral LE. Pannus cellulitis with fungal infection. Cdiff positive large volume diarrhea colitis. Immune compromised. RA on Prednisone and leflunomide. Acute encephalopathy: infection, sepsis, encephalitis Recs: MRI C spine negative. Consider repeat MRI brain WITH CONTRAST to r.o brain abscess especially given the fact that she was on chronic oral keflex suppression ? partially treated meningitis or brain abscess. 2D ECHO negative for vegetations. Continue Zosyn IV for cellulitis/aspiration. Continue Vanco IV for cellulitis. Continue IV acyclovir (pending CSF VZV PCR) DC flagyl can worsen encephalopathy. Start oral Vanco (meets criteria as well as no encephalopathy side effect) Continue Diflucan for pannus cellulitis with fungal component. CSF HSV PCR negative. Follow CSF VDRL Follow CSF STANISLAW virus (Immune compromised on fpc steroids) Follow cultures Follow clinically. I will be OOT from 12/09/16 to 12/17/16. Other ID MDs to cover for me. Priscilla Corey MD Dec 08, 2016 15:37
[2016-12-08 16:18] LABS: HEMOGLOBIN A1a 1.8 %; HEMOGLOBIN A1b 2.1 %; HEMOGLOBIN Ao 81.5 %; HEMOGLOBIN LA1C 2.5 %; HEMOGLOBIN P3 4.2 %
[2016-12-08] MEDS: VANCOMYCIN 500 MG VIAL (FOR ORAL USE ONLY) PO SCH ×2 (17:35→20:41)
[2016-12-08] MEDS: DILTIAZEM HCL 25 MG/5 ML VIAL IV PRN (18:10)
--- NOTE | 2016-12-08 19:21 | HHI.HCPN ---
Reason for visit a. To assist with evaluation and management of symptoms including: pain. b. To assist medical decision maker(s) with: better understanding of current medical conditions; weighing benefits/burdens of medical treatment options; making medical treatment decisions. . Subjective/Interval History Patient seen and examined in ICU. Mother at bedside. Patient arouses briefly to visit. Family reports patient feels like she had a "stroke." Family reports left eye drooping more and having difficulty finding her thoughts. Vital signs and labs stable. Medical update provided. Reviewed multiple test results still pending. Mother indicated she spoke with Dr. Torrez earlier today. Family very appreciative for time spent. . Family/friend interactions See interval note. Advance Directives Living Will: Never completed Health Care Surrogate: Never completed Durable Power of Therapeutic Recreation Specialist: Never completed Advance Directive Specifics Health Care Surrogate(s): Karolina, daughter: [phone] Jemima, mother: [phone] jose g Timance: [phone] Significant change in goals: NO CODE. Family desires continued aggressive care short of code status. Objective Vital Signs Date Time Temp Pulse Resp B/P (MAP) Pulse Ox O2 Delivery O2 Flow Rate FiO2 12/08/16 18:00 84 12/08/16 16:00 97.4 82 20 154/79 (104) 98 12/08/16 16:00 82 12/08/16 14:00 76 12/08/16 12:00 97.8 80 23 130/63 (85) 99 12/08/16 12:00 80 12/08/16 10:00 76 12/08/16 08:00 97.6 84 23 141/66 (91) 99 12/08/16 08:00 84 12/08/16 07:00 97 Nasal Cannula 2.00 12/08/16 04:00 97.3 75 21 130/62 (84) 97 12/08/16 00:00 96.8 78 25 142/70 (94) 97 12/07/16 20:17 96 Nasal Cannula 2.00 12/07/16 20:00 98.4 84 21 116/57 (76) 95 12/07/16 20:00 85 Physical Exam CONSTITUTIONAL/GENERAL: This is a chronically ill appearing patient, moaning and crying in pain intermittently during my visit. TUBES/LINES/DRAINS: PIV right, Ocampo. SKIN: Ecchymoses on upper extremities. Bilateral LE redness and wound to left lateral LE with yellowish drainage. Skin temperature warm. CARDIOVASCULAR: regular rate and rhythm. RESPIRATORY/CHEST: Symmetric, unlabored respirations. Clear to auscultation. Diminished breath sounds bilaterally. GASTROINTESTINAL: Abdomen soft, non-tender, nondistended. No guarding. Bowel sounds present. GENITOURINARY: Without palpable bladder distension. Ocampo catheter in place. MUSCULOSKELETAL: Extremities with erythema and edema. NEUROLOGICAL: Awakens briefly, answers some questions, falls off to sleep. PSYCHIATRIC: Intermittently moaning and restless. . Diagnostic Tests Laboratory Laboratory Tests Test 12/06/16 01:55 12/06/16 02:10 12/06/16 04:06 12/06/16 06:21 White Blood Count 14.9 TH/MM3 (4.0-11.0) Red Blood Count 4.69 MIL/MM3 (4.00-5.30) Hemoglobin 11.2 GM/DL (11.6-15.3) Hematocrit 36.1 % (35.0-46.0) Mean Corpuscular Volume 77.0 FL (80.0-100.0) Mean Corpuscular Hemoglobin 23.8 PG (27.0-34.0) Mean Corpuscular Hemoglobin Concent 31.0 % (32.0-36.0) Red Cell Distribution Width 17.5 % (11.6-17.2) Platelet Count 346 TH/MM3 (150-450) Mean Platelet Volume 7.7 FL (7.0-11.0) Neutrophils (%) (Auto) 85.6 % (16.0-70.0) Lymphocytes (%) (Auto) 9.1 % (9.0-44.0) Monocytes (%) (Auto) 3.9 % (0.0-8.0) Eosinophils (%) (Auto) 0.8 % (0.0-4.0) Basophils (%) (Auto) 0.6 % (0.0-2.0) Neutrophils # (Auto) 12.7 TH/MM3 (1.8-7.7) Lymphocytes # (Auto) 1.4 TH/MM3 (1.0-4.8) Monocytes # (Auto) 0.6 TH/MM3 (0-0.9) Eosinophils # (Auto) 0.1 TH/MM3 (0-0.4) Basophils # (Auto) 0.1 TH/MM3 (0-0.2) CBC Comment DIFF FINAL Differential Comment Blood Urea Nitrogen 7 MG/DL (7-18) Creatinine 0.57 MG/DL (0.50-1.00) Random Glucose 109 MG/DL (74-106) Total Protein 6.4 GM/DL (6.4-8.2) Albumin 2.9 GM/DL (3.4-5.0) Calcium Level 8.6 MG/DL (8.5-10.1) Magnesium Level 1.5 MG/DL (1.5-2.5) Alkaline Phosphatase 103 U/L (45-117) Aspartate Amino Transf (AST/SGOT) 14 U/L (15-37) Alanine Aminotransferase (ALT/SGPT) 15 U/L (10-53) Total Bilirubin 0.3 MG/DL (0.2-1.0) Sodium Level 134 MEQ/L (136-145) Potassium Level 3.7 MEQ/L (3.5-5.1) Chloride Level 102 MEQ/L (98-107) Carbon Dioxide Level 21.3 MEQ/L (21.0-32.0) Anion Gap 11 MEQ/L (5-15) Estimat Glomerular Filtration Rate 114 ML/MIN (>89) Total Creatine Kinase 62 U/L (26-192) Troponin I LESS THAN 0.02 NG/ML C-Reactive Protein 5.67 MG/DL (0.00-0.30) B-Type Natriuretic Peptide 92 PG/ML (0-100) Lipase 54 U/L (73-393) Thyroid Stimulating Hormone 3rd Gen 3.820 uIU/ML (0.358-3.740) Ethyl Alcohol Level LESS THAN 3 MG/DL (0-5) Prothrombin Time 9.7 SEC (9.8-11.6) Prothromb Time International Ratio 0.9 RATIO Activated Partial Thromboplast Time 25.0 SEC (24.3-30.1) Urine Color LIGHT-YELLOW (YELLW/STRAW) Urine Turbidity CLEAR (CLEAR) Urine pH 7.5 (5.0-8.5) Urine Specific [place] 1.004 (1.002-1.035) Urine Protein 30 mg/dL (NEG-TRACE) Urine Glucose (UA) NEG mg/dL (NEG) Urine Ketones 10 mg/dL (NEG) Urine Occult Blood NEG (NEG) Urine Nitrite NEG (NEG) Urine Bilirubin NEG (NEG) Urine Urobilinogen LESS THAN 2.0 MG/DL (LESS Urine Leukocyte Esterase NEG (NEG) Urine RBC 4 /hpf (0-3) Urine WBC 1 /hpf (0-5) Urine Bacteria RARE /hpf (NONE) Microscopic Urinalysis Comment CULT NOT INDICATED Lactic Acid Level 3.6 mmol/L (0.4-2.0) 2.2 mmol/L (0.4-2.0) 1.5 mmol/L (0.4-2.0) Ammonia 17 MCMOL/L (11-32) Urine Opiates Screen NEG (NEG) Urine Barbiturates Screen NEG (NEG) Urine Amphetamines Screen NEG (NEG) Urine Benzodiazepines Screen NEG (NEG) Urine Cocaine Screen NEG (NEG) Urine Cannabinoids Screen NEG (NEG) Test 12/06/16 15:52 12/06/16 16:40 12/06/16 22:13 12/07/16 00:20 CSF Volume (Tube 1) 3.5 ML CSF Supernatant Color (tube 1) CLEAR (CLEAR) CSF Gross Blood (Tube 1) 0 (0) CSF Volume (Tube 2) 2.5 ML CSF Supernatant Color (tube 2) CLEAR (CLEAR) CSF Gross Blood (Tube 2) 0 (0) CSF WBC (Tube 2) /MM3 (0-10) CSF Volume (Tube 3) 3.0 ML CSF Supernatant Color (tube 3) CLEAR (CLEAR) CSF Volume (Tube 4) 2.5 ML CSF Supernatant Color (tube 4) CLEAR (CLEAR) CSF WBC (Tube 4) 15 /MM3 (0-10) CSF RBC (Tube 4) 0 /MM3 (NONE) CSF Neutrophils 0 % CSF Lymphocytes 32 % CSF Monocytes 68 % CSF Glucose 53 MG/DL (40-80) CSF Lactic Acid 3.7 MMOL/L (0.0-3.0) CSF Total Protein 170.3 MG/DL (15.0-45.0) Herpes Simplex Virus I DNA (PCR) Negative (Negative) Herpes Simplex Virus II DNA (PCR) Negative (Negative) Total Creatine Kinase 194 U/L (26-192) Creatine Kinase MB 1.5 NG/ML (0.5-3.6) Creatine Kinase MB % 0.8 % (0.0-4.0) Troponin I 0.14 NG/ML (0.02-0.05) C-Reactive Protein 16.20 MG/DL (0.00-0.30) Nasal Screen MRSA (PCR) MRSA NOT DETECTED (NOT Blood Gas Puncture Site LT RADIAL Blood Gas Patient Temperature 98.6 Blood Gas HCO3 18 mmol/L (22-26) Blood Gas Base Excess -6.4 mmol/L (-2-2) Blood Gas Oxygen Saturation 95 % (90-100) Arterial Blood pH 7.37 (7.380-7.420) Arterial Blood Partial Pressure CO2 32 mmHg (38-42) Arterial Blood Partial Pressure O2 90 mmHG (61-120) Arterial Blood Oxygen Content 12.0 Vol % (12.0-20.0) Arterial Blood Carboxyhemoglobin 1.2 % (0-4) Arterial Blood Methemoglobin 0.8 % (0-2) Blood Gas Hemoglobin 8.9 G/DL (12.0-16.0) Oxygen Delivery Device NASAL CANNULA Blood Gas Liter Flow 3 L/M Test 12/07/16 00:41 12/07/16 22:10 12/08/16 04:40 12/08/16 08:45 Erythrocyte Sedimentation Rate 47 mm/hr (0-20) Stool C. difficile Toxin (PCR) POSITIVE (NEGATIVE) Stl C. difficile Toxin Epiderm 027 PRESUMPTIVE NEGATIVE White Blood Count 10.1 TH/MM3 (4.0-11.0) Red Blood Count 3.39 MIL/MM3 (4.00-5.30) Hemoglobin 8.3 GM/DL (11.6-15.3) Hematocrit 26.0 % (35.0-46.0) Mean Corpuscular Volume 76.9 FL (80.0-100.0) Mean Corpuscular Hemoglobin 24.4 PG (27.0-34.0) Mean Corpuscular Hemoglobin Concent 31.8 % (32.0-36.0) Red Cell Distribution Width 17.7 % (11.6-17.2) Platelet Count 198 TH/MM3 (150-450) Mean Platelet Volume 8.0 FL (7.0-11.0) Neutrophils (%) (Auto) 94.2 % (16.0-70.0) Lymphocytes (%) (Auto) 2.8 % (9.0-44.0) Monocytes (%) (Auto) 2.8 % (0.0-8.0) Eosinophils (%) (Auto) 0.1 % (0.0-4.0) Basophils (%) (Auto) 0.1 % (0.0-2.0) Neutrophils # (Auto) 9.5 TH/MM3 (1.8-7.7) Lymphocytes # (Auto) 0.3 TH/MM3 (1.0-4.8) Monocytes # (Auto) 0.3 TH/MM3 (0-0.9) Eosinophils # (Auto) 0.0 TH/MM3 (0-0.4) Basophils # (Auto) 0.0 TH/MM3 (0-0.2) CBC Comment DIFF FINAL Differential Comment Blood Urea Nitrogen 18 MG/DL (7-18) Creatinine 0.55 MG/DL (0.50-1.00) Random Glucose 182 MG/DL (74-106) Total Protein 4.8 GM/DL (6.4-8.2) Albumin 1.6 GM/DL (3.4-5.0) Calcium Level 7.1 MG/DL (8.5-10.1) Phosphorus Level 2.8 MG/DL (2.5-4.9) 2.6 MG/DL (2.5-4.9) Magnesium Level 1.6 MG/DL (1.5-2.5) 1.6 MG/DL (1.5-2.5) Alkaline Phosphatase 69 U/L (45-117) Aspartate Amino Transf (AST/SGOT) 11 U/L (15-37) Alanine Aminotransferase (ALT/SGPT) 13 U/L (10-53) Total Bilirubin 0.3 MG/DL (0.2-1.0) Sodium Level 143 MEQ/L (136-145) Potassium Level 2.7 MEQ/L (3.5-5.1) Chloride Level 112 MEQ/L (98-107) Carbon Dioxide Level 19.3 MEQ/L (21.0-32.0) Anion Gap 12 MEQ/L (5-15) Estimat Glomerular Filtration Rate 118 ML/MIN (>89) Hemoglobin A1c 7.6 % (4.3-6.0) Protein Corrected Calcium 8.4 MG/DL (8.5-10.1) Vitamin B12 Level 1102 PG/ML (193-986) Free Thyroxine 1.51 NG/DL (0.76-1.46) Thyroid Stimulating Hormone 3rd Gen 0.421 uIU/ML (0.358-3.740) Rheumatoid Factor Screen POSITIVE (NEGATIVE) Rheumatoid Factor Titer 16.1 IU/ML (0.0-14.9) Anti-Nuclear Antibody Screen NEG (NEG) Rapid Plasma Reagin NON-REACTIVE (NON-REACTVE) Hepatitis A IgM Antibody NEGATIVE (NEGATIVE) Hepatitis B Surface Antigen NEGATIVE (NEGATIVE) Hepatitis B Core IgM Antibody NEGATIVE (NEGATIVE) Hepatitis C Antibody NEGATIVE (NEGATIVE) HIV (1&2) Antibody NEGATIVE (NEGATIVE) Vancomycin Level Trough 28.6 MCG/ML (5.0-10.0) Test 12/08/16 19:00 Result Diagram: 12/08/160 12/08/16 0440 Microbiology Microbiology Date/Time Source Procedure Growth Status 12/06/16 02:00 Blood Peripheral Aerobic Blood Culture - Preliminary NO GROWTH IN 2 DAYS Resulted 12/06/16 02:00 Blood Peripheral Anaerobic Blood Culture - Preliminary NO GROWTH IN 2 DAYS Resulted 12/06/16 01:34 Blood Peripheral Aerobic Blood Culture - Preliminary NO GROWTH IN 2 DAYS Resulted 12/06/16 01:34 Blood Peripheral Anaerobic Blood Culture - Preliminary NO GROWTH IN 2 DAYS Resulted 12/06/16 15:52 Cerebral Spinal Fluid Lumbar Puncture Fungal Smear - Final NO FUNGAL ELEMENTS SEEN. Resulted 12/06/16 15:52 Cerebral Spinal Fluid Lumbar Puncture Fungal Culture Pending Resulted 12/06/16 15:52 Cerebral Spinal Fluid Lumbar Puncture Acid Fast Stain - Final NO ACID FAST BACILLI SEEN Resulted 12/06/16 15:52 Cerebral Spinal Fluid Lumbar Puncture Mycobacterial Culture Pending Resulted 12/06/16 15:52 Cerebral Spinal Fluid Lumbar Puncture Gram Stain - Final Resulted 12/06/16 15:52 Cerebral Spinal Fluid Lumbar Puncture CSF Culture - Preliminary NO GROWTH IN 48 HOURS. Resulted 12/06/16 06:20 Wound Leg Gram Stain - Final Resulted 12/06/16 06:20 Wound Culture - Preliminary Serratia Marcescens Gram Negative [place] Resulted Imaging Last Impressions Chest X-Ray 12/08/16 0000 Signed Impressions: Service Date/Time: Thursday, December 08, 2016 01:26 - CONCLUSION: 1. Left central line in superior vena cava without pneumothorax. Baljeet Yap MD Brain MRI 10/11/17 1942 Signed Impressions: Service Date/Time: Tuesday, December 06, 2016 21:13 - CONCLUSION: 1. Chronic nonspecific white matter changes bilaterally and bilateral cortical atrophy.. 2. 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 Kenroy Luong MD Head CT 12/06/16 0200 Signed Impressions: Service Date/Time: Tuesday, December 06, 2016 03:15 - CONCLUSION: Motion degraded exam showing moderate white matter hypodensity of undetermined chronicity. Marcus Buchanan MD Neck Ultrasound 12/06/16 Signed Impressions: Service Date/Time: Tuesday, December 06, 2016 08:06 - CONCLUSION: No abscess observed. Ultrasound evaluation for an abscess in this area is very difficult and an abscess can easily be occult by ultrasound evaluation. CT or MRI is more sensitive. Mukul Gary Jr., MD Lumbar Puncture Fluoroscopy 12/06/16 Signed Impressions: Service Date/Time: Tuesday, December 06, 2016 15:52 - CONCLUSION: Uncomplicated fluoroscopically guided lumbar puncture with pressures as above. Rg Paz MD Head/Brain Mag Res Venography 12/06/16 Signed Impressions: Service Date/Time: Tuesday, December 06, 2016 21:13 - CONCLUSION: Limited study. Grossly unremarkable exam. Kenroy Luong MD Head Magnetic Resonance Angiography 12/06/16 Signed Impressions: Service Date/Time: Tuesday, December 06, 2016 21:13 - CONCLUSION: Normal examination for a patient of this age. Kenroy Luong MD Hand X-Ray 12/06/16 Signed Impressions: Service Date/Time: Tuesday, December 06, 2016 20:04 - CONCLUSION: Extensive arthritis throughout the hand and wrist. Kenroy Luong MD Cervical Spine MRI 12/06/16 Signed Impressions: Service Date/Time: Tuesday, December 06, 2016 21:13 - CONCLUSION: Extremely limited MRI of the cervical spine. Kenroy Luong MD Abdomen/Pelvis CT 12/06/16 Signed Impressions: Service Date/Time: Tuesday, December 06, 2016 03:21 - CONCLUSION: No definite acute CT findings in the abdomen or pelvis. Marcus Buchanan MD Procedures * 12/06/16 - lumbar puncture . Assessment and Plan Disease Oriented Problem List: (1) Sepsis (2) Acute metabolic encephalopathy Symptom Scale: (1) Pain 0-10 Scale: Unable to quantify (2) Altered mental status 0-10 Scale: Unable to quantify Pertinent Non-Medical Issues Psychosocial: Supported by her daughter, mini and parents. Spiritual: Unknown. Legal: Patient is incapacitated, uncertain if she will regain capacity. No known written advanced directives, it has been discussed in the past but nothing was ever signed. According to [place] Statutes, health care medical proxy decision maker falls to majority of adult children. Patient has 1 daughter Karolina, who is willing to serve as health care proxy decision maker. She is supported by Ms. Harris's mother, father, and fiance. Ethical issues impacting care: No known concerns at this time. . Important Contacts Karolina, daughter/HCP: [phone] [place], jose gance: [phone] Prognosis Ms. Harris is an unfortunate 46 year old with chronic medical comorbidities including RA (chronic steroids), diabetes, etc admitted with altered mental status and sepsis. While she may survive this hospitalization she remains high risk for further decline, repeat infections/ hospitalizations. Code Status: No Code Plan * Decision Maker: Patient is incapacitated, uncertain if she will regain capacity. No known written advanced directives, it has been discussed in the past but nothing was ever signed. According to [place] Statutes, health care medical proxy decision maker falls to majority of adult children. Patient has 1 daughter Karolina, who is willing to serve as health care proxy decision maker. She is supported by Ms. Harris's mother, father, and fiance. FULL * FULL CODE * Family desires continued aggressive care short of NO CODE. * SYMPTOMS: Pain: in tongue, neck, back, legs and right UE likely secondary to chronic debility, diabetes, RA, bed/chair bound status, tubes. Currently off all pain meds due to altered mental status, will make pain recommendations once neurology give approval. * Palliative care number provided. * Palliative care will continue to follow throughout hospital course to assist with symptom management and clarification of goals as needed. Attestation To help prompt me to consider important information that might be impacting today's encounter and assessment, information from prior notes written by myself or my colleagues may have been "brought forward" into today's note. My signature on this note, however, is an attestation that I personally performed the exam, history, and/or decision-making noted today, and, unless otherwise indicated, the interactions with patient, family, and staff as well as the review of records all occurred today. I also attest that the listed assessment and stated plan reflect my best clinical judgment today based on the combination of historical information, prior notes, and today's exam/ interactions. When time spent is documented, it refers only to time spent today by the signer, or if indicated, combined time spent today by collaborating physician/nurse practitioner. Rebecca Ortez Dec 08, 2016 19:21
[2016-12-08] MEDS: INSULIN DETEMIR 100 UNITS/ML VIAL SQ SCH (21:00)
[2016-12-09] VITALS (12 sets, daily range): BP systolic 144–180; BP diastolic 72–94; PULSE 78–106; RESP 16–24; TEMP 97.4–98.7; O2SAT 93–99
[2016-12-09] MEDS: ACYCLOVIR INJ 600 MG in SODIUM CHLORIDE 0.9% INJ 100 ML IV SCH ×3 (00:29→17:18)
[2016-12-09] MEDS: PIPERACIL-TAZO 4.5 GM PREMIX 100 ML IV SCH ×4 (01:03→20:27)
[2016-12-09] MEDS: SODIUM CHLOR 0.9% 1000 ML INJ 1,000 ML IV SCH (04:20)
[2016-12-09] MEDS: METOPROLOL TARTRATE 5 MG/5 ML VIAL IV PUSH PRN ×2 (04:25→15:11)
[2016-12-09 05:11] LABS: BASOPHIL # 0.1 TH/MM3 (0-0.2); BASOPHIL % 0.7 % (0.0-2.0); HEMATOCRIT 26.3 % (35.0-46.0); HEMO FLAGS DIFF FINAL; LYMPH % 1.7 % (9.0-44.0); LYMPHOCYTE # 0.1 TH/MM3 (1.0-4.8); MEAN CELL VOLUME 76.3 FL (80.0-100.0); MEAN CORPUSCULAR HEMOGLOBIN 23.8 PG (27.0-34.0); MEAN CORPUSCULAR HGB CONC 31.2 % (32.0-36.0); MONO % 3.1 % (0.0-8.0); NEUT % 94.5 % (16.0-70.0); PLATELET COUNT 225 TH/MM3 (150-450); RED BLOOD COUNT 3.45 MIL/MM3 (4.00-5.30); RED CELL DISTRIBUTION WIDTH 17.3 % (11.6-17.2); WHITE BLOOD COUNT 8.5 TH/MM3 (4.0-11.0)
[2016-12-09 05:23] LABS: BICARBONATE 19.8 MEQ/L (21.0-32.0); MAGNESIUM 1.7 MG/DL (1.5-2.5); POTASSIUM 3.5 MEQ/L (3.5-5.1)
[2016-12-09] MEDS: DILTIAZEM HCL 25 MG/5 ML VIAL IV SCH ×3 (05:26→22:00)
[2016-12-09] MEDS: DILTIAZEM HCL 25 MG/5 ML VIAL IV PRN (07:52)
[2016-12-09] MEDS: INSULIN ASPART SUPPLEMENTAL SCALE SQ SCH ×4 (08:00→22:35)
[2016-12-09] MEDS: levETIRAcetam 1000 MG INJ 100 ML IV SCH ×2 (08:34→20:27)
[2016-12-09] MEDS: methylPREDNISolone SO SUCC INJ 1,000 MG in DEXTROSE 5% IN WATER 100ML INJ 100 ML IV SCH ×2 (08:34)
[2016-12-09] MEDS: METOPROLOL TARTRATE 50 MG TAB PO SCH ×3 (08:35→21:00)
[2016-12-09] MEDS: predniSONE 5 MG TAB PO SCH ×3 (08:35→21:00)
[2016-12-09] MEDS: LEFLUNOMIDE 20 MG TAB PO SCH (08:35)
[2016-12-09] MEDS: GABAPENTIN 400 MG CAP PO SCH ×3 (08:35→17:19)
[2016-12-09] MEDS: FLUCONAZOLE 100 MG TAB PO SCH (08:36)
[2016-12-09] MEDS: LACTOBACILLUS ACIDOPHILUS TAB PO SCH ×3 (08:36→17:19)
[2016-12-09] MEDS: SODIUM CHLORIDE 0.9% FLUSH 10 ML FLUSH IV FLUSH SCH ×2 (08:36→19:39)
[2016-12-09] MEDS: PANTOPRAZOLE SOD 40 MG DELAYED RELEASE TAB PO SCH (08:36)
[2016-12-09] MEDS: CITALOPRAM HYDROBROMIDE 20 MG TAB PO SCH (08:36)
[2016-12-09] MEDS: VANCOMYCIN 500 MG VIAL (FOR ORAL USE ONLY) PO SCH ×4 (08:38→20:28)
--- NOTE | 2016-12-09 08:41 | HHI.PR ---
Review/Management Daily Summary awake and oriented alert today RN feels much better mentation follows commands well moves 4 limbs, gen weakness monitor neuro dx uncertain, keep in mind Vasculitis as well Subjective Subjective Comments No acute events reported No headache Active Medications Current Medications Medications (Trade) Dose Ordered Sig/Fuentes Route Start Time Stop Time Status Last Admin (NS Flush) 2 ml UNSCH PRN IV FLUSH 12/06/16 04:45 (NS Flush) 2 ml BID IV FLUSH 12/06/16 09:00 12/08/16 20:41 Pharmacy Profile Note 0 ml @ 0 mls/hr UNSCH OTHER 12/06/16 04:45 Piperacillin Sod/ Tazobactam Sod 100 ml @ 200 mls/hr Q6H IV 12/06/16 08:00 12/09/16 01:03 (Cardizem Inj) 15 mg Q4H PRN IV 12/06/16 06:45 12/09/16 07:52 (Cardizem Inj) 20 mg Q8H IV 12/06/16 14:00 12/09/16 05:26 (Tylenol) 650 mg Q4H PRN PO 12/06/16 08:15 12/07/16 14:56 (Zofran Inj) 4 mg Q6H PRN IVP 12/06/16 08:15 (Tylenol) 650 mg Q6H PRN PO 12/06/16 08:15 (Narcan Inj) 0.4 mg UNSCH PRN IV PUSH 12/06/16 08:15 (Shaylee-Colace) 1 tab BID PO 12/06/16 09:00 12/07/16 20:22 (Milk Of Magnesia Liq) 30 ml Q12H PRN PO 12/06/16 08:15 (Senokot) 17.2 mg Q12H PRN PO 12/06/16 08:15 (Dulcolax Supp) 10 mg DAILY PRN RECTAL 12/06/16 08:15 (Lactulose Liq) 30 ml DAILY PRN PO 12/06/16 08:15 (Lopressor Inj) 5 mg Q6H PRN IV PUSH 12/06/16 13:00 12/09/16 04:25 (Levemir Inj) 30 units HS SQ 12/06/16 21:00 12/07/16 20:23 (Lopressor) 50 mg Q12HR PO 12/06/16 21:00 12/08/16 20:41 Acyclovir Sodium 600 mg/Sodium Chloride 100 ml @ 100 mls/hr Q8H IV 12/06/16 17:00 12/09/16 00:29 (Tylenol Supp) 650 mg Q6H PRN RECTAL 12/06/16 14:45 Sodium Chloride 1,000 ml @ 75 mls/hr [id number] IV 12/06/16 16:41 12/09/16 04:20 (CeleXA) 20 mg DAILY PO 12/07/16 09:00 12/08/16 08:32 (Neurontin) 800 mg TID PO 12/06/16 18:00 12/08/16 17:35 (Atarax) 50 mg BID PRN PO 12/06/16 17:00 (Ditropan) 5 mg Q12HR PRN PO 12/06/16 17:00 (Arava) 20 mg DAILY PO 12/07/16 09:00 12/08/16 08:31 (Deltasone) 5 mg BID PO 12/07/16 09:00 12/08/16 20:41 (Protonix) 40 mg DAILY PO 12/07/16 09:00 12/08/16 08:31 (Lioresal) 5 mg BID PRN PO 12/07/16 07:30 Methylprednisolone Sodium Succinate 1000 mg/Dextrose 116 ml @ 232 mls/hr Q24H IV 12/07/16 09:00 12/08/16 08:31 (Pill Splitter) 1 ea UNSCH PRN OTHER 12/07/16 07:45 (D50w (Vial) Inj) 50 ml UNSCH PRN IV PUSH 12/07/16 11:30 (Glucagon Inj) 1 mg UNSCH PRN OTHER 12/07/16 11:30 Levetriacetam 100 ml @ 400 mls/hr Q12HR IV 12/07/16 14:00 12/08/16 20:41 Vancomycin HCl 1250 mg/Sodium Chloride 262.5 ml @ 250 mls/hr Q12H IV 12/07/16 21:00 Future Hold 12/07/16 20:21 (D50w (Vial) Inj) 50 ml UNSCH PRN IV PUSH 12/07/16 18:15 (Glucagon Inj) 1 mg UNSCH PRN OTHER 12/07/16 18:15 (NovoLOG SUPPLEMENTAL SCALE) 1 ACHS SLIDING SCALE SQ 12/07/16 21:00 12/08/16 08:00 (Lactinex) 1 tab TID PO 12/08/16 09:00 12/08/16 17:35 Potassium Chloride 100 ml @ 50 mls/hr Q2H PRN IV 12/08/16 09:30 12/08/16 10:51 Potassium Chloride 100 ml @ 50 mls/hr Q2H PRN IV 12/08/16 09:30 (K-Lyte Cl Eff) 50 meq UNSCH PRN PO 12/08/16 09:30 Potassium Chloride 100 ml @ 25 mls/hr UNSCH PRN IV 12/08/16 09:30 12/08/16 20:41 Potassium Chloride 100 ml @ 50 mls/hr Q2H PRN IV 12/08/16 09:30 Magnesium Sulfate 4 gm/Sodium Chloride 100 ml @ 50 mls/hr UNSCH PRN IV 12/08/16 09:30 (Mag-Ox) 800 mg UNSCH PRN PO 12/08/16 09:30 Magnesium Sulfate 2 gm/Sodium Chloride 100 ml @ 50 mls/hr UNSCH PRN IV 12/08/16 09:30 (K-Phos) 2,000 mg Q4H PRN PO 12/08/16 09:30 Sodium Phosphate 30 mmol/Sodium Chloride 250 ml @ 42 mls/hr UNSCH PRN IV 12/08/16 09:30 (K-Phos) 2,000 mg UNSCH PRN PO/TUBE 12/08/16 09:30 Potassium Phosphate 30 mmol/ Sodium Chloride 260 ml @ 42 mls/hr UNSCH PRN IV 12/08/16 09:30 (Diflucan) 100 mg DAILY PO 12/09/16 09:00 (VANCOMYCIN for oral use only) 125 mg QID PO 12/08/16 18:00 12/08/16 20:41 Allergies Allergies Coded Allergies hydromorphone (Verified Allergy, Unknown, 12/06/16) metformin (Verified Allergy, Unknown, 12/06/16) Exam I&O / VS Vital Signs Date Time Temp Pulse Resp B/P (MAP) Pulse Ox O2 Delivery O2 Flow Rate FiO2 12/09/16 06:00 78 12/09/16 04:00 84 12/09/16 04:00 98.3 84 19 172/94 (120) 96 12/09/16 02:00 86 12/09/16 00:00 78 12/09/16 00:00 98.3 78 24 152/78 (102) 99 12/08/16 22:00 76 12/08/16 21:46 99 Nasal Cannula 2.00 12/08/16 20:00 80 12/08/16 20:00 98.5 80 23 160/83 (108) 100 12/08/16 18:00 84 12/08/16 16:00 97.4 82 20 154/79 (104) 98 12/08/16 16:00 82 12/08/16 14:00 76 12/08/16 12:00 97.8 80 23 130/63 (85) 99 12/08/16 12:00 80 12/08/16 10:00 76 Objective Micro and Labs Laboratory Tests Test 12/08/16 08:45 12/08/16 19:00 12/09/16 04:54 Phosphorus Level 2.6 Magnesium Level 1.6 1.7 Vancomycin Level Trough 28.6 Potassium Level 3.4 3.5 White Blood Count 8.5 Red Blood Count 3.45 Hemoglobin 8.2 Hematocrit 26.3 Mean Corpuscular Volume 76.3 Mean Corpuscular Hemoglobin 23.8 Mean Corpuscular Hemoglobin Concent 31.2 Red Cell Distribution Width 17.3 Platelet Count 225 Mean Platelet Volume 7.8 Neutrophils (%) (Auto) 94.5 Lymphocytes (%) (Auto) 1.7 Monocytes (%) (Auto) 3.1 Eosinophils (%) (Auto) 0.0 Basophils (%) (Auto) 0.7 Neutrophils # (Auto) 8.0 Lymphocytes # (Auto) 0.1 Monocytes # (Auto) 0.3 Eosinophils # (Auto) 0.0 Basophils # (Auto) 0.1 CBC Comment DIFF FINAL Differential Comment Blood Urea Nitrogen 16 Creatinine 0.34 Random Glucose 89 Calcium Level 7.7 Sodium Level 146 Chloride Level 117 Carbon Dioxide Level 19.8 Anion Gap 9 Estimat Glomerular Filtration Rate 206 Random Vancomycin Level 12.7 Date/Time Source Procedure Growth Status 12/06/16 02:00 Blood Peripheral Aerobic Blood Culture - Preliminary NO GROWTH IN 2 DAYS Resulted 12/06/16 02:00 Blood Peripheral Anaerobic Blood Culture - Preliminary NO GROWTH IN 2 DAYS Resulted 12/06/16 15:52 Cerebral Spinal Fluid Lumbar Puncture Fungal Smear - Final NO FUNGAL ELEMENTS SEEN. Resulted 12/06/16 15:52 Cerebral Spinal Fluid Lumbar Puncture Fungal Culture Pending Resulted 12/06/16 06:20 Wound Leg Gram Stain - Final Complete 12/06/16 06:20 Wound Culture - Final Serratia Marcescens Morganella Morganii Complete Rosalio Gonzalez MD Dec 09, 2016 08:41
[2016-12-09] MEDS: DOCUSATE SODIUM 50 MG/SENNA 8.6 MG TAB PO SCH ×2 (09:00→20:28)
[2016-12-09] MEDS ORDERED: hydrALAZINE HCL 20 MG/ML VIAL IV PUSH PRN (10:00)
[2016-12-09] MEDS: CALCIUM CARBONATE 500 MG CHEWABLE TAB CHEW SCH ×3 (11:24→21:00)
[2016-12-09] MEDS: MAGNESIUM OXIDE 400 MG TAB PO SCH (11:24)
[2016-12-09] MEDS: ENALAPRILAT 2.5 MG/2 ML VIAL IV PUSH PRN (11:24)
[2016-12-09] MEDS: POTASSIUM CHLORIDE 20 MEQ CONTROLLED RELEASE TAB PO SCH (11:24)
[2016-12-09] MEDS: SODIUM CHLOR 0.45% 1000 ML INJ 1,000 ML IV SCH ×2 (11:24→20:28)
--- NOTE | 2016-12-09 13:49 | HHI.PR ---
Subjective Remarks In bed, appears sleepy. 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 Nauseated yesterday not today. NO vomiting. With diarrhea, patient with h/o C diff and curent C diff. No fever or chills. No seizure activity Objective Vitals Vital Signs Date Time Temp Pulse Resp B/P (MAP) Pulse Ox O2 Delivery O2 Flow Rate FiO2 12/09/16 06:00 78 12/09/16 04:00 84 12/09/16 04:00 98.3 84 19 172/94 (120) 96 12/09/16 02:00 86 12/09/16 00:00 78 12/09/16 00:00 98.3 78 24 152/78 (102) 99 12/08/16 22:00 76 12/08/16 21:46 99 Nasal Cannula 2.00 12/08/16 20:00 80 12/08/16 20:00 98.5 80 23 160/83 (108) 100 12/08/16 18:00 84 12/08/16 16:00 97.4 82 20 154/79 (104) 98 12/08/16 16:00 82 12/08/16 14:00 76 I/O 12/08/16 12/08/16 12/08/16 12/09/16 12/09/16 12/09/16 07:00 15:00 23:00 07:00 15:00 23:00 Intake Total 2631 ml 1076 ml 1134 ml 2095 ml Output Total 375 ml 1100 ml 1300 ml Balance 2256 ml 1076 ml 34 ml 795 ml Intake Oral 100 ml 200 ml 90 ml IV Total 2531 ml 1076 ml 934 ml 2005 ml Output Urine Total 375 ml 1100 ml 650 ml Stool Total 650 ml # Bowel Movements 3 6 Result Diagram: 12/09/16 0454 12/09/16 0454 Imaging Last Impressions Chest X-Ray 12/08/16 0000 Signed Impressions: Service Date/Time: Thursday, December 08, 2016 01:26 - CONCLUSION: 1. Left central line in superior vena cava without pneumothorax. Baljeet Yap MD Brain MRI 12/06/16 194 Signed Impressions: Service Date/Time: Tuesday, December 06, 2016 21:13 - CONCLUSION: 1. Chronic nonspecific white matter changes bilaterally and bilateral cortical atrophy.. 2. 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 Kenroy Luong MD Head CT 12/06/16 0200 Signed Impressions: Service Date/Time: Tuesday, December 06, 2016 03:15 - CONCLUSION: Motion degraded exam showing moderate white matter hypodensity of undetermined chronicity. Marcus Buchanan MD Neck Ultrasound 12/06/16 Signed Impressions: Service Date/Time: Tuesday, December 06, 2016 08:06 - CONCLUSION: No abscess observed. Ultrasound evaluation for an abscess in this area is very difficult and an abscess can easily be occult by ultrasound evaluation. CT or MRI is more sensitive. Mukul Gary Jr., MD Lumbar Puncture Fluoroscopy 12/06/16 Signed Impressions: Service Date/Time: Tuesday, December 06, 2016 15:52 - CONCLUSION: Uncomplicated fluoroscopically guided lumbar puncture with pressures as above. Rg Paz MD Head/Brain Mag Res Venography 12/06/16 Signed Impressions: Service Date/Time: Tuesday, December 06, 2016 21:13 - CONCLUSION: Limited study. Grossly unremarkable exam. Kenroy Luong MD Head Magnetic Resonance Angiography 12/06/16 Signed Impressions: Service Date/Time: Tuesday, December 06, 2016 21:13 - CONCLUSION: Normal examination for a patient of this age. Kenroy Luong MD Hand X-Ray 12/06/16 Signed Impressions: Service Date/Time: Tuesday, December 06, 2016 20:04 - CONCLUSION: Extensive arthritis throughout the hand and wrist. Kenroy Luong MD Cervical Spine MRI 12/06/16 Signed Impressions: Service Date/Time: Tuesday, December 06, 2016 21:13 - CONCLUSION: Extremely limited MRI of the cervical spine. Kenroy Luong MD Abdomen/Pelvis CT 12/06/16 Signed Impressions: Service Date/Time: Tuesday, December 06, 2016 03:21 - CONCLUSION: No definite acute CT findings in the abdomen or pelvis. Marcus Buchanan MD Objective Remarks GENERAL: This is a well-nourished, well developed patient, in bed, appears sleepy however she is alert and oriented, appears in nad. SKIN: Bilateral lower extremity cellulitis, warm and red. Left lower extremity with yellow drain HEAD: Atraumatic. Normocephalic. Neck pain noted with movement EYES: Pupils equal round and reactive. Extraocular motions intact. ENT: Nose without bleeding, purulent drainage or septal hematoma.Neck with edema. Airway patent. NECK: Trachea midline. No JVD. CARDIOVASCULAR: Regular rate and rhythm without murmurs, gallops, or rubs. RESPIRATORY: Clear to auscultation. Breath sounds equal bilaterally. No wheezes , rales, or rhonchi. GASTROINTESTINAL: Abdomen soft, non-tender, nondistended. . No guarding. MUSCULOSKELETAL: Extremities without clubbing, cyanosis, or edema. No calf tenderness. NEUROLOGICAL: Alert and oriented. No nuchal rigidity. Motor and sensory grossly within normal limits. A/P Problem List: (1) Sepsis ICD Code: A41.9 - Sepsis, unspecified organism (2) Acute metabolic encephalopathy ICD Code: G93.41 - Metabolic encephalopathy (3) Cellulitis ICD Code: L03.90 - Cellulitis, unspecified Assessment and Plan 46 y/o female with a history of DM, HTN, MS (not fully diagnosed), C DIFF and RA was brought to the ED with altered mental status. Sepsis, wbc 14.9, lactic 3.6-->2.2, Tmax 102.4 source likely BLE cellulitis. patient with RA and poss on immunosuppressive. Patient also with acute encephalopathy altered mental status on admission and concern of meningitis/ encephalitis. LP was done and poss viral meningitis/encephalitis, repeat LP per neuro. Also posibile vasculitis per neuro , work up in progress -Vancomycin, zosyn, acyclovir IV. Added flagyl as patient with C diff -CBC in AM -Cont IVF -Consult ID appreciate recommendations -Neck soft tissue US no abscess -Blood cultures pending -3L NS given in ED; repeat lactate nl - pt also has chronic on and off diarrhea C diff - hx of cdiff sepsis. Positive C diff this admission treat with flagyl Hypokalemia. Replace. Monitor and replace as need. Check mag, replace if low. Acute metabolic encephalopathy, poss due to sepsis Head CT reviewed and shows white matter hypodensity, due to artifact unknown if chronic Seizure, start levetiracetam. 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 Monitor closely UOP UA normal Abdominal CT reviewed and shows no acute disease -Cont barajas and strict I&Os Chronic diarrhea, hx of c diff -C diff positive. Start flagyl RA, chronic -Patients daughter will bring list of medications in today to be resumed DVT prophylaxis: SCDs Discussed Condition With Patient, ICU nurse Problem Qualifiers (1) Sepsis: Qualified Codes: A41.9 - Sepsis, unspecified organism Zoila Rubalcava MD Dec 09, 2016 13:49
[2016-12-09 14:11] LABS: TRANSFERRIN IRON PROFILE 171 MG/DL (200-360)
[2016-12-09 14:14] LABS: FERRITIN 95 NG/ML (8-252)
[2016-12-09] MEDS: hydrALAZINE HCL 10 MG TAB PO PRN (15:53)
[2016-12-09] MEDS ORDERED: LORazepam 2 MG/ML VIAL ONE (16:08)
[2016-12-09] MEDS ORDERED: LORazepam 2 MG/ML VIAL IV PRN (16:15)
[2016-12-09 16:28] LABS: CSF CRYPTOCOCCUS AG CONF ND (NOT DETECTD)
[2016-12-09] MEDS: oxyCODONE/ACETAMINOPHEN 10 MG/325 MG TAB PO SCH (17:20)
[2016-12-09] MEDS: VANCOMYCIN INJ 1,250 MG in SODIUM CHLOR 0.9% 250 ML INJ 250 ML IV SCH (17:38)
[2016-12-09] MEDS ORDERED: cloNIDine HCL 0.1 MG TAB PO ONE (19:15)
[2016-12-09] MEDS: INSULIN DETEMIR 100 UNITS/ML VIAL SQ SCH (21:00)
[2016-12-09] MEDS ORDERED: FLUMAZENIL 0.5 MG/5 ML VIAL ONE (21:01)
[2016-12-09] MEDS: hydrALAZINE HCL 20 MG/ML VIAL IV PUSH PRN (23:40)
[2016-12-10] VITALS (13 sets, daily range): BP systolic 138–161; BP diastolic 65–90; PULSE 82–130; RESP 16–24; TEMP 97.7–100.1; O2SAT 94–96
[2016-12-10] MEDS: ACYCLOVIR INJ 600 MG in SODIUM CHLORIDE 0.9% INJ 100 ML IV SCH ×4 (00:41→23:57)
[2016-12-10] MEDS: PIPERACIL-TAZO 4.5 GM PREMIX 100 ML IV SCH ×4 (02:00→21:00)
[2016-12-10 02:25] LABS: BLOOD GAS BASE EXCESS -4.9 mmol/L (-2-2); BLOOD GAS CARBOXYHEMOGLOBIN 1.4 % (0-4); BLOOD GAS HCO3 19 mmol/L (22-26); BLOOD GAS METHEMOGLOBIN 1.1 % (0-2); BLOOD GAS O2 HGB SATURATION 93 % (90-100); BLOOD GAS OXYGEN CONTENT 7.7 Vol % (12.0-20.0); BLOOD GAS PCO2 31 mmHg (38-42); BLOOD GAS PO2 79 mmHg (61-120); BLOOD GAS TOTAL HGB 5.7 G/DL (12.0-16.0); CRITICAL VALUE YES; LITER FLOW 2 L/M; OXYGEN DEVICE NASAL CANNULA; TEMP CORR TO 98.6
[2016-12-10 02:26] LABS: DRAW SITE RT RADIAL; NUMBER OF ARTERIAL PUNCTURES 1; STAT YES; ULNAR PULSE PRESENT
[2016-12-10] MEDS ORDERED: SODIUM CHLOR 0.9% 250 ML INJ 250 ML IV ONE (02:30)
--- NOTE | 2016-12-10 02:51 | RADRPT ---
EXAM DATE/TIME: 12/10/2016 02:28 [facility] COMPARISON: CT BRAIN W/O CONTRAST, December 06, 2016, 3:15. INDICATIONS : Increased altered mental status. RADIATION DOSE: 36.13 CTDIvol (mGy) MEDICAL HISTORY : Multple sclerosis. Diabetes mellitus type 2. SURGICAL HISTORY : Fusion, cervical. ENCOUNTER: Initial ACUITY: 1 day PAIN SCALE: Non-responsive LOCATION: cranial TECHNIQUE: Multiple contiguous axial images were obtained of the head. Using automated exposure control and adj ustment of the mA and/or kV according to patient size, radiation dose was kept as low as reasonably a chievable to obtain optimal diagnostic quality images. DICOM format image data is available electro nically for review and comparison. FINDINGS: CEREBRUM: The ventricles are normal for age. There is decreased density seen in the periventricular white don er. No evidence of midline shift, mass lesion, hemorrhage or acute infarction. No extra-axial fluid collections are seen. POSTERIOR FOSSA: There is a small focal area of encephalomalacia at the posterior left cerebellar hemisphere. Otherwis e, the cerebellum and brainstem are intact. The 4th ventricle is midline. The cerebellopontine angl e is unremarkable. EXTRACRANIAL: The visualized portion of the orbits is intact. SKULL: The calvaria is intact. No evidence of skull fracture. Surgical hardware is seen in the cervical spi ne and occipital bone region. CONCLUSION: 1. No acute abnormality is seen. 2. White matter demyelination. 3. Small focal area of encephalomalacia at the left cerebellar hemisphere. Marcus Chahal MD on December 10, 2016 at 2:47 Board Certified Radiologist. This report was verified electronically.
[2016-12-10 03:22] LABS: BASOPHIL % 0.4 % (0.0-2.0); HEMATOCRIT 26.2 % (35.0-46.0); HEMO FLAGS DIFF FINAL; LYMPHOCYTE # 0.1 TH/MM3 (1.0-4.8); MEAN CELL VOLUME 76.4 FL (80.0-100.0); MEAN CORPUSCULAR HEMOGLOBIN 24.2 PG (27.0-34.0); MEAN CORPUSCULAR HGB CONC 31.6 % (32.0-36.0); MONO % 2.5 % (0.0-8.0); NEUT % 95.1 % (16.0-70.0); PLATELET COUNT 223 TH/MM3 (150-450); RED BLOOD COUNT 3.43 MIL/MM3 (4.00-5.30); RED CELL DISTRIBUTION WIDTH 17.7 % (11.6-17.2); WHITE BLOOD COUNT 5.3 TH/MM3 (4.0-11.0)
[2016-12-10 04:08] LABS: BICARBONATE 20.6 MEQ/L (21.0-32.0); MAGNESIUM 1.8 MG/DL (1.5-2.5); POTASSIUM 3.2 MEQ/L (3.5-5.1)
[2016-12-10] MEDS: VANCOMYCIN INJ 1,250 MG in SODIUM CHLOR 0.9% 250 ML INJ 250 ML IV SCH ×2 (04:21→17:32)
[2016-12-10 04:24] LABS: CALCIUM-PROTEIN CORRECTED 8.5 MG/DL (8.5-10.1)
[2016-12-10] MEDS: DILTIAZEM HCL 25 MG/5 ML VIAL IV SCH ×4 (06:00→20:59)
[2016-12-10] MEDS: hydrALAZINE HCL 20 MG/ML VIAL IV PUSH PRN ×3 (06:35→22:36)
[2016-12-10] MEDS: INSULIN ASPART SUPPLEMENTAL SCALE SQ SCH ×4 (08:00→21:00)
--- NOTE | 2016-12-10 08:06 | HHI.PR ---
Subjective Remarks In bed, appears somnolent, she is responding to vocal stimuli, doesn't follow much commands. She is moving arms and legs. Not eating much. Patient is lethargic, not able to take meds and not able to eat. Will place NGT Objective Vitals Vital Signs Date Time Temp Pulse Resp B/P (MAP) Pulse Ox O2 Delivery O2 Flow Rate FiO2 12/10/16 06:00 88 12/10/16 04:00 98.5 82 20 147/90 (109) 95 12/10/16 00:00 98 12/10/16 00:00 97.7 86 16 138/65 (89) 96 12/09/16 21:02 95 Nasal Cannula 2.00 12/09/16 20:00 97.5 84 16 180/80 (113) 96 12/09/16 18:00 100 12/09/16 16:00 106 12/09/16 16:00 98.7 106 22 177/77 (110) 93 12/09/16 14:00 80 12/09/16 12:00 97.9 80 19 169/84 (112) 94 12/09/16 12:00 80 12/09/16 10:00 88 I/O 12/09/16 12/09/16 12/09/16 12/10/16 12/10/16 12/10/16 06:59 14:59 22:59 06:59 14:59 22:59 Intake Total 2095 ml 751 ml 1187 ml 974 ml Output Total 1300 ml 1800 ml 520 ml Balance 795 ml 751 ml -613 ml 454 ml Intake Oral 90 ml 200 ml IV Total 2005 ml 751 ml 987 ml 974 ml Output Urine Total 650 ml 1200 ml 420 ml Stool Total 650 ml 600 ml 100 ml Result Diagram: 12/10/16 0240 12/10/16 0240 Imaging Last Impressions Chest X-Ray 12/08/16 0000 Signed Impressions: Service Date/Time: Thursday, December 08, 2016 01:26 - CONCLUSION: 1. Left central line in superior vena cava without pneumothorax. Baljeet Yap MD Brain MRI 12/06/16 194 Signed Impressions: Service Date/Time: Tuesday, December 06, 2016 21:13 - CONCLUSION: 1. Chronic nonspecific white matter changes bilaterally and bilateral cortical atrophy.. 2. 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 Kenroy Luong MD Head CT 12/06/16 0200 Signed Impressions: Service Date/Time: Tuesday, December 06, 2016 03:15 - CONCLUSION: Motion degraded exam showing moderate white matter hypodensity of undetermined chronicity. Marcus Buchanan MD Neck Ultrasound 12/06/16 Signed Impressions: Service Date/Time: Tuesday, December 06, 2016 08:06 - CONCLUSION: No abscess observed. Ultrasound evaluation for an abscess in this area is very difficult and an abscess can easily be occult by ultrasound evaluation. CT or MRI is more sensitive. Mukul Gary Jr., MD Lumbar Puncture Fluoroscopy 12/06/16 Signed Impressions: Service Date/Time: Tuesday, December 06, 2016 15:52 - CONCLUSION: Uncomplicated fluoroscopically guided lumbar puncture with pressures as above. Rg Paz MD Head/Brain Mag Res Venography 12/06/16 Signed Impressions: Service Date/Time: Tuesday, December 06, 2016 21:13 - CONCLUSION: Limited study. Grossly unremarkable exam. Kenroy Luong MD Head Magnetic Resonance Angiography 12/06/16 Signed Impressions: Service Date/Time: Tuesday, December 06, 2016 21:13 - CONCLUSION: Normal examination for a patient of this age. Kenroy Luong MD Hand X-Ray 12/06/16 Signed Impressions: Service Date/Time: Tuesday, December 06, 2016 20:04 - CONCLUSION: Extensive arthritis throughout the hand and wrist. Kenroy Luong MD Cervical Spine MRI 12/06/16 Signed Impressions: Service Date/Time: Tuesday, December 06, 2016 21:13 - CONCLUSION: Extremely limited MRI of the cervical spine. Kenroy Lunog MD Abdomen/Pelvis CT 12/06/16 Signed Impressions: Service Date/Time: Tuesday, December 06, 2016 03:21 - CONCLUSION: No definite acute CT findings in the abdomen or pelvis. Marcus Buchanan MD Objective Remarks GENERAL: This is a well-nourished, well developed patient, in bed, appears sleepy, appears in nad. SKIN: Bilateral lower extremity cellulitis, warm and red. Left lower extremity with yellow drain CARDIOVASCULAR: Regular rate and rhythm without murmurs, gallops, or rubs. RESPIRATORY: Clear to auscultation. Breath sounds equal bilaterally. No wheezes , rales, or rhonchi. GASTROINTESTINAL: Abdomen soft, non-tender, nondistended. . No guarding. MUSCULOSKELETAL: Extremities without clubbing, cyanosis, or edema. No calf tenderness. NEUROLOGICAL: Somnolent. confused, doesn't follow commands, moves arms and legs. A/P Problem List: (1) Sepsis ICD Code: A41.9 - Sepsis, unspecified organism (2) Acute metabolic encephalopathy ICD Code: G93.41 - Metabolic encephalopathy (3) Cellulitis ICD Code: L03.90 - Cellulitis, unspecified Assessment and Plan 46 y/o female with a history of DM, HTN, MS (not fully diagnosed), C DIFF and RA was brought to the ED with altered mental status. Sepsis, wbc 14.9, lactic 3.6-->2.2, Tmax 102.4 source likely BLE cellulitis. patient with RA on immunosuppressive Rx. Patient also with acute encephalopathy altered mental status on admission and concern of meningitis/ encephalitis. LP was done and poss viral meningitis/encephalitis, repeat LP per neuro. Also possible vasculitis per neuro , work up in progress. Needs MRI with contrast -Vancomycin, zosyn, acyclovir IV. DC flagyl, as might worsen encephalopathy , started vanco per ID as patient with C diff. Continue diflucan -CBC in AM -Cont IVF -Consult ID appreciate recommendations -Neck soft tissue US no abscess -Blood cultures pending -3L NS given in ED; repeat lactate nl - Pt also has chronic on and off diarrhea C diff - hx of cdiff sepsis. Positive C diff this admission treat with vanco per ID Hypokalemia. Replace. Monitor and replace as need. Check mag, replace if low. Acute metabolic encephalopathy, poss due to sepsis, etiology unclear at this time, work up in progress Head CT reviewed and shows white matter hypodensity, due to artifact unknown if chronic Repeat CT 12/10 as patient is noted more lethargic. Left vladislav encephalomalacia. Neuro ff. Seizure, start levetiracetam. 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 Monitor closely UOP UA normal Abdominal CT reviewed and shows no acute disease -Cont barajas and strict I&Os Hypertension: uncontrolled. Anemia , iron deficient. Start Venofer IV. Monitor H/H transfuse if HGB< 7 Chronic diarrhea, hx of c diff -C diff positive. DC flagyl as might worsen encephalopathy, started vanco per ID RA, chronic -Patients daughter will bring list of medications in today to be resumed Severe protein calorie malnutrition: low albumin. Consult fruit dumper. Will place NGT DVT prophylaxis: SCDs Discussed Condition With Patient, ICU nurse Problem Qualifiers (1) Sepsis: Qualified Codes: A41.9 - Sepsis, unspecified organism Zoila Rubalcava MD Dec 10, 2016 08:06
[2016-12-10] MEDS: DOCUSATE SODIUM 50 MG/SENNA 8.6 MG TAB PO SCH ×2 (09:00→21:00)
[2016-12-10] MEDS: PANTOPRAZOLE SOD 40 MG DELAYED RELEASE TAB PO SCH (09:00)
[2016-12-10] MEDS: SODIUM CHLORIDE 0.9% FLUSH 10 ML FLUSH IV FLUSH SCH ×2 (09:00→21:00)
[2016-12-10] MEDS: oxyCODONE/ACETAMINOPHEN 10 MG/325 MG TAB PO SCH ×3 (09:00→18:00)
[2016-12-10] MEDS: SODIUM CHLOR 0.45% 1000 ML INJ 1,000 ML IV SCH ×3 (09:20→23:58)
[2016-12-10] MEDS: POTASSIUM CHLOR 40 MEQ PREMIX 100 ML IV PRN (09:54)
[2016-12-10] MEDS: methylPREDNISolone SO SUCC INJ 1,000 MG in DEXTROSE 5% IN WATER 100ML INJ 100 ML IV SCH ×2 (09:55)
[2016-12-10] MEDS: levETIRAcetam 1000 MG INJ 100 ML IV SCH ×2 (09:55→21:00)
[2016-12-10] MEDS: METOPROLOL TARTRATE 50 MG TAB PO SCH ×2 (09:56→21:00)
[2016-12-10] MEDS: MAGNESIUM OXIDE 400 MG TAB PO SCH (09:56)
[2016-12-10] MEDS: LEFLUNOMIDE 20 MG TAB PO SCH (09:56)
[2016-12-10] MEDS: FLUCONAZOLE 100 MG TAB PO SCH (09:56)
[2016-12-10] MEDS: POTASSIUM CHLORIDE 20 MEQ CONTROLLED RELEASE TAB PO SCH (09:56)
[2016-12-10] MEDS: CALCIUM CARBONATE 500 MG CHEWABLE TAB CHEW SCH ×2 (09:56→20:59)
[2016-12-10] MEDS: predniSONE 5 MG TAB PO SCH ×2 (09:57→21:00)
[2016-12-10] MEDS: CITALOPRAM HYDROBROMIDE 20 MG TAB PO SCH (09:57)
[2016-12-10] MEDS: GABAPENTIN 400 MG CAP PO SCH ×3 (09:57→17:32)
[2016-12-10] MEDS: LACTOBACILLUS ACIDOPHILUS TAB PO SCH ×3 (09:57→17:33)
[2016-12-10] MEDS: VANCOMYCIN 500 MG VIAL (FOR ORAL USE ONLY) PO SCH ×4 (09:57→20:59)
[2016-12-10] MEDS: IRON SUCROSE INJ 100 MG in SODIUM CHLORIDE 0.9% INJ 100 ML IV SCH (09:59)
[2016-12-10] MEDS: OLANZapine 5 MG TAB PO SCH ×2 (14:45→21:00)
--- NOTE | 2016-12-10 14:58 | PD.PSY.CON ---
Provisional Diagnosis Admission Date Dec 06, 2016 at 04:24 [place] I. Unspecified psychosis, delirium due to underlying medical conditions, history of depression [place] II. Deferred [place] III. Rheumatoid arthritis, diabetes, osteoporosis, sepsis [place] IV. Multiple medical conditions [place] V. 50 History of Present Illness Service Psychiatry Consult Requested By Psychosis new-onset Reason for Consult New onset psychosis Primary Care Physician Unknown HPI The patient is a 46-year-old woman, domiciled with her fianc in [place], unemployed, on SSI, with psychiatric history of depression, no previous psychiatric hospitalizations, no previous suicidal attempts, she is in citalopram 20 mg by by PCP, with a medical history of DM, HTN, MS (not fully diagnosed), C DIFF and RA was brought to the ED with altered mental status. diagnosed with Sepsis, wbc 14.9, lactic 3.6-->2.2, Tmax 102.4 source likely BLE cellulitis. patient with RA on immunosuppressive Rx. Patient also with acute encephalopathy altered mental status on admission and concern of meningitis/ encephalitis. LP was done and poss viral meningitis/encephalitis, repeat LP per neuro. she is now clear neurologically. Consulted to psychiatry due to new onset psychosis. As per discussion with nursing charge and her fianc, patient has been repeatedly stating that nurses in the floor want to hurt her, poisoning her her medications, are trying to steal her belongings. Patient has become agitated, verbally aggressive. Her level of suspiciousness and paranoia fluctuates, today she seems to be less paranoid. On psychiatric evaluation the patient is calm, cooperative, pleasant. Patient reports that she does not understand what is going on, but she knows that "my mind is playing tricks with me". She stated that right now everything just to be very clear, but at moments she says that even her fianc and daughter are trying to hurt her. As I 'm talking with the patient patient is is committed to close the door "because I know that people are trying to listen to this conversation behind the door". Patient reports having very vivid dreams at night, denies visual and auditory hallucinations, denies suicidal and homicidal ideation. His symptoms, she denies anxiety, and is oriented in person and place, but disoriented in time. Her fianc states that this is the first time to the patient has such a scary psychotic episode. Even though, he says that in the past she has been "kind of psychotic", one time like to his ago, she was accusing him to stay her medications, but she was okay after redirection and his phonation. Review of Systems Constitutional: DENIES: Diaphoretic episodes, Fatigue, Fever, Weight gain, Weight loss, Chills, Dizziness, Change in appetite, Night Sweats Endocrine: DENIES: Abnorml menstrual pattern, Heat/cold intolerance, Polydipsia , Polyuria, Polyphagia Eyes: DENIES: Blurred vision, Diplopia, Eye inflammation, Eye pain, Vision loss , Photosensitivity, Double Vision Ears, nose, mouth, throat: DENIES: Tinnitus, Hearing loss, Vertigo, Nasal discharge, Oral lesions, Throat pain, Hoarseness, Ear Pain, Running Nose, Epistaxis, Sinus Pain, Toothache, Odynophagia Respiratory: DENIES: Apneas, Cough, Snoring, Wheezing, Hemoptysis, Sputum production, Shortness of breath Cardiovascular: DENIES: Chest pain, Palpitations, Syncope, Dyspnea on Exertion , PND, Lower Extremity Edema, Orthopnea, Claudication Gastrointestinal: DENIES: Abdominal pain, Black stools, Bloody stools, Constipation, Diarrhea, Nausea, Vomiting, Difficulty Swallowing, Anorexia Genitourinary: DENIES: Abnormal vaginal bleeding, Dysmenorrhea, Dyspareunia, Sexual dysfunction, Urinary frequency, Urinary incontinence, Urgency, Hematuria , Dysuria, Nocturia, Vaginal discharge Musculoskeletal: DENIES: Joint pain, Muscle aches, Stiffness, Joint Swelling, Back pain, Neck pain Integumentary: DENIES: Abnormal pigmentation, Pruritus, Rash, Nail changes, Breast masses, Breast skin changes, Nipple discharge Hematologic/lymphatic: DENIES: Bruising, Lymphadenopathy Immunologic/allergic: DENIES: Eczema, Urticaria Neurologic: DENIES: Abnormal gait, Headache, Localized weakness, Paresthesias, Seizures, Speech Problems, Tremor, Poor Balance Psychiatric: COMPLAINS OF: Anxiety, Hallucinations, Delusions Past Family Social History Coded Allergies: hydromorphone (Verified Allergy, Unknown, 12/06/16) metformin (Verified Allergy, Unknown, 12/06/16) Reported Medications Insulin Glargine Inj (Lantus Inj) 1,000 Unit/10 Ml Vial, 40 UNITS SQ HS for Blood Sugar Management, VIAL 0 Refills 12/06/16 Cephalexin (Cephalexin) 500 Mg Tab, 500 MG PO Q12H for Infection, TAB 0 Refills 12/06/16 Leflunomide (Leflunomide) 20 Mg Tab, 20 MG PO DAILY, TAB 12/06/16 Metoprolol Tartrate (Metoprolol Tartrate) 50 Mg Tab, 50 MG PO BID, #60 TAB 0 Refills 12/06/16 Prednisone (48) 5 mg tab Dose Pack (Prednisone (48) 5 mg tab Dose Pack) 5 Mg Dspk, 5 MG PO BID, 0 Refills 12/06/16 Citalopram (Citalopram) 20 Mg Tab, 20 MG PO DAILY for Control Depression, #30 TAB 0 Refills 12/06/16 Gabapentin (Gabapentin) 800 Mg Tab, 800 MG PO TID, #90 TAB 0 Refills 12/06/16 Baclofen (Baclofen) 10 Mg Tab, 10 MG PO Q8HR Y for MUSCLE SPASMS, TAB 0 Refills 12/06/16 Oxycodone-Acetaminophen (Oxycodone-Acetaminophen) 10-325 mg Tab, 1 TAB PO Q6H Y for PAIN, TAB 0 Refills 12/06/16 Hydroxyzine HCl (Hydroxyzine HCl) 50 Mg Tab, 50 MG PO BID Y for ITCHING, TAB 0 Refills 12/06/16 Oxybutynin (Ditropan) 5 Mg Tab, 5 MG PO Q12HR Y for URGENCY, #60 TAB 0 Refills 12/06/16 Current Medications Medications (Trade) Dose Ordered Sig/Fuentes Route Start Time Stop Time Status Last Admin (NS Flush) 2 ml UNSCH PRN IV FLUSH 12/06/16 04:45 (NS Flush) 2 ml BID IV FLUSH 12/06/16 09:00 12/10/16 09:00 Pharmacy Profile Note 0 ml @ 0 mls/hr UNSCH OTHER 12/06/16 04:45 Piperacillin Sod/ Tazobactam Sod 100 ml @ 200 mls/hr Q6H IV 12/06/16 08:00 12/10/16 13:05 (Tylenol) 650 mg Q4H PRN PO 12/06/16 08:15 12/07/16 14:56 (Zofran Inj) 4 mg Q6H PRN IVP 12/06/16 08:15 (Tylenol) 650 mg Q6H PRN PO 12/06/16 08:15 (Narcan Inj) 0.4 mg UNSCH PRN IV PUSH 12/06/16 08:15 (Shaylee-Colace) 1 tab BID PO 12/06/16 09:00 12/07/16 20:22 (Milk Of Magnesia Liq) 30 ml Q12H PRN PO 12/06/16 08:15 (Senokot) 17.2 mg Q12H PRN PO 12/06/16 08:15 (D[place]colax Supp) 10 mg DAILY PRN RECTAL 12/06/16 08:15 (Lactulose Liq) 30 ml DAILY PRN PO 12/06/16 08:15 (Levemir Inj) 30 units HS SQ 12/06/16 21:00 12/07/16 20:23 (Lopressor) 50 mg Q12HR PO 12/06/16 21:00 12/10/16 09:56 Acyclovir Sodium 600 mg/Sodium Chloride 100 ml @ 100 mls/hr Q8H IV 12/06/16 17:00 12/10/16 09:55 (Tylenol Supp) 650 mg Q6H PRN RECTAL 12/06/16 14:45 (CeleXA) 20 mg DAILY PO 12/07/16 09:00 12/10/16 09:57 (Neurontin) 800 mg TID PO 12/06/16 18:00 12/10/16 13:06 (Atarax) 50 mg BID PRN PO 12/06/16 17:00 (Ditropan) 5 mg Q12HR PRN PO 12/06/16 17:00 (Arava) 20 mg DAILY PO 12/07/16 09:00 12/10/16 09:56 (Deltasone) 5 mg BID PO 12/07/16 09:00 12/10/16 09:57 (Protonix) 40 mg DAILY PO 12/07/16 09:00 12/10/16 09:00 (Lioresal) 5 mg BID PRN PO 12/07/16 07:30 Methylprednisolone Sodium Succinate 1000 mg/Dextrose 116 ml @ 232 mls/hr Q24H IV 12/07/16 09:00 12/10/16 09:55 (Pill Splitter) 1 ea UNSCH PRN OTHER 12/07/16 07:45 Levetriacetam 100 ml @ 400 mls/hr Q12HR IV 12/07/16 14:00 12/10/16 09:55 (D50w (Vial) Inj) 50 ml UNSCH PRN IV PUSH 12/07/16 18:15 (Glucagon Inj) 1 mg UNSCH PRN OTHER 12/07/16 18:15 (NovoLOG SUPPLEMENTAL SCALE) 1 ACHS SLIDING SCALE SQ 12/07/16 21:00 12/10/16 12:00 (Lactinex) 1 tab TID PO 12/08/16 09:00 12/10/16 13:06 Potassium Chloride 100 ml @ 50 mls/hr Q2H PRN IV 12/08/16 09:30 12/10/16 09:54 Potassium Chloride 100 ml @ 50 mls/hr Q2H PRN IV 12/08/16 09:30 (K-Lyte Cl Eff) 50 meq UNSCH PRN PO 12/08/16 09:30 Potassium Chloride 100 ml @ 25 mls/hr UNSCH PRN IV 12/08/16 09:30 12/08/16 20:41 Potassium Chloride 100 ml @ 50 mls/hr Q2H PRN IV 12/08/16 09:30 Magnesium Sulfate 4 gm/Sodium Chloride 100 ml @ 50 mls/hr UNSCH PRN IV 12/08/16 09:30 (Mag-Ox) 800 mg UNSCH PRN PO 12/08/16 09:30 Magnesium Sulfate 2 gm/Sodium Chloride 100 ml @ 50 mls/hr UNSCH PRN IV 12/08/16 09:30 (K-Phos) 2,000 mg Q4H PRN PO 12/08/16 09:30 Sodium Phosphate 30 mmol/Sodium Chloride 250 ml @ 42 mls/hr UNSCH PRN IV 12/08/16 09:30 (K-Phos) 2,000 mg UNSCH PRN PO/TUBE 12/08/16 09:30 Potassium Phosphate 30 mmol/ Sodium Chloride 260 ml @ 42 mls/hr UNSCH PRN IV 12/08/16 09:30 (Diflucan) 100 mg DAILY PO 12/09/16 09:00 12/10/16 09:56 (VANCOMYCIN for oral use only) 125 mg QID PO 12/08/16 18:00 12/10/16 13:05 Sodium Chloride 1,000 ml @ 84 mls/hr [id number] IV 12/09/16 09:30 12/09/16 20:28 (Apresoline) 10 mg Q6HR PRN PO 12/09/16 10:00 12/09/16 15:53 (Vasotec Inj) 2.5 mg Q6H PRN IV PUSH 12/09/16 09:15 12/09/16 11:24 (Tums Chew) 500 mg Q12HR CHEW 12/09/16 09:15 12/10/16 09:56 (Mag-Ox) 400 mg DAILY@1100 PO 12/09/16 11:00 12/12/16 10:59 12/10/16 09:56 (KCl) 20 meq DAILY PO 12/09/16 09:30 12/12/16 09:29 12/10/16 09:56 Vancomycin HCl 1250 mg/Sodium Chloride 262.5 ml @ 250 mls/hr Q12H IV 12/09/16 16:00 12/10/16 04:21 Miscellaneous Information SPECIFIC LAB TO BE DRAWN:VANCO DATE TO... ONCE ONCE .XX 12/11/16 03:45 12/11/16 03:46 (Percocet 10-325 Mg) 1 tab TID PO 12/09/16 18:00 12/09/16 17:20 (Ativan Inj) 1 mg BID PRN IV 12/09/16 16:15 (Cardizem Inj) 20 mg Q8HR IV 12/09/16 22:00 12/10/16 13:06 (Apresoline Inj) 20 mg Q4H PRN IV PUSH 12/09/16 21:30 12/10/16 06:35 Iron Sucrose 100 mg/Sodium Chloride 105 ml @ 105 mls/hr DAILY IV 12/10/16 09:00 12/12/16 09:59 12/10/16 09:59 Family Psych History Patient denies family psych history Social History Patient was born and raised in [place], she lives in [place] with her fianc, she has a daughter, she is unemployed, on SSI, her highest level of education is high school Patient's Strengths (min. 2) Family support Physical Exam Patient seems to be hypoactive, a little bit confused, Lethargic, hypoactive, but no tremors, no EPS, present. Vital Signs Vital Signs Date Time Temp Pulse Resp B/P (MAP) Pulse Ox O2 Delivery O2 Flow Rate FiO2 12/10/16 12:00 97 12/10/16 12:00 98.4 20 139/69 (92) 95 12/10/16 11:38 Nasal Cannula 2.00 I/O 12/10/16 12/10/16 12/10/16 07:59 15:59 23:59 Intake Total 974 ml Output Total 520 ml Balance 454 ml Lab Results Test 12/10/16 02:00 12/10/16 02:40 12/10/16 05:07 Blood Gas Puncture Site RT RADIAL Blood Gas Patient Temperature 98.6 Blood Gas HCO3 19 mmol/L Blood Gas Base Excess -4.9 mmol/L Blood Gas Oxygen Saturation 93 % Arterial Blood pH 7.40 Arterial Blood Partial Pressure CO2 31 mmHg Arterial Blood Partial Pressure O2 79 mmHg Arterial Blood Oxygen Content 7.7 Vol % Arterial Blood Carboxyhemoglobin 1.4 % Arterial Blood Methemoglobin 1.1 % Blood Gas Hemoglobin 5.7 G/DL Oxygen Delivery Device NASAL CANNULA Blood Gas Liter Flow 2 L/M White Blood Count 5.3 TH/MM3 Red Blood Count 3.43 MIL/MM3 Hemoglobin 8.3 GM/DL Hematocrit 26.2 % Mean Corpuscular Volume 76.4 FL Mean Corpuscular Hemoglobin 24.2 PG Mean Corpuscular Hemoglobin Concent 31.6 % Red Cell Distribution Width 17.7 % Platelet Count 223 TH/MM3 Mean Platelet Volume 7.6 FL Neutrophils (%) (Auto) 95.1 % Lymphocytes (%) (Auto) 2.0 % Monocytes (%) (Auto) 2.5 % Eosinophils (%) (Auto) 0.0 % Basophils (%) (Auto) 0.4 % Neutrophils # (Auto) 5.0 TH/MM3 Lymphocytes # (Auto) 0.1 TH/MM3 Monocytes # (Auto) 0.1 TH/MM3 Eosinophils # (Auto) 0.0 TH/MM3 Basophils # (Auto) 0.0 TH/MM3 CBC Comment DIFF FINAL Differential Comment Blood Urea Nitrogen 18 MG/DL Creatinine 0.37 MG/DL Random Glucose 186 MG/DL Total Protein 4.9 GM/DL Calcium Level 7.3 MG/DL Magnesium Level 1.8 MG/DL Sodium Level 145 MEQ/L Potassium Level 3.2 MEQ/L Chloride Level 115 MEQ/L Carbon Dioxide Level 20.6 MEQ/L Anion Gap 9 MEQ/L Estimat Glomerular Filtration Rate 187 ML/MIN Protein Corrected Calcium 8.5 MG/DL Ammonia 38 MCMOL/L Prealbumin 15 MG/DL Date/Time Source Procedure Growth Status 12/06/16 02:00 Blood Peripheral Aerobic Blood Culture - Preliminary NO GROWTH IN 4 DAYS Resulted 12/06/16 02:00 Blood Peripheral Anaerobic Blood Culture - Preliminary NO GROWTH IN 4 DAYS Resulted 12/06/16 15:52 Cerebral Spinal Fluid Lumbar Puncture Fungal Smear - Final NO FUNGAL ELEMENTS SEEN. Resulted 12/06/16 15:52 Cerebral Spinal Fluid Lumbar Puncture Fungal Culture Pending Resulted 12/06/16 06:20 Wound Leg Gram Stain - Final Complete 12/06/16 06:20 Wound Culture - Final Serratia Marcescens Morganella Morganii Complete Mental Status Examination Appearance: Appropriate Consciousness: Alert Orientation: x4 Motor Activity: Normal gait Speech: Unremarkable Language: Adequate Fund of Knowledge: Adequate Attention and Concentration: Adequate Memory: Unremarkable Mood: Appropriate Affect: Appropriate Thought Process & Associations: Loose associations Thought Content: Hallucinations, Delusional Hallucination Type: Visual Delusion Type: Paranoid Suicidal Ideation: No Suicidal Plan: No Suicidal Intention: No Homicidal Ideation: No Homicidal Plan: No Homicidal Intention: No Insight: Adequate Judgment: Adequate Assessment & Plan Problem List: (1) Unspecified psychosis ICD Codes: F29 - Unspecified psychosis not due to a substance or known physiological condition Assessment & Plan: On psychiatric evaluation today the patient presents with what seems to be that internal preoccupation, visual hallucinations, paranoia and agitation. Patient has been making accusations to the nurses, acting bizarre, stated that people in the hospital want to hurt her, also poisoning her. Patient has been presenting also fluctuating level of consciousness, disorientation, visual hallucinations. She does not have any prominent previous psychiatric history other than depression, no hospitalizations, no suicide attempts, she is a stable and citalopram 20 mg. This presentation seems to be related with delirium due to multiple factors, including narcotics, underlying medical conditions, prolonged hospitalization, sensory deprivation. Patient will benefit of a low dose of antipsychotic, olanzapine 5 mg twice a day could be really very often. My impression is that her perceptual disturbances will disappear as her medical illnesses prove, but if psychosis persist beyond medical clearance she may need a psychiatric admission. Extensive support, motivation and psychoeducation provided. I will follow up. Assessment & Plan Estimated LOS: Franklin Varghese MD Dec 10, 2016 14:58
--- NOTE | 2016-12-10 16:03 | HHI.IDPN ---
Note Infectious Disease Note ID COVERAGE. Notes reviewed. Patient noted to be confused. Afebrile. D/W RN. No rash. is a 46 y/o CM with PMHx of DM2, HTN, ? 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 secondary to prednisone. All reported to me by significant other who knows her for last 6 years. She used to walk 6 years back then subsequently became wheel chair bound for trips. The patient is now in crippling pain secondary to RA constant neck pain inability to move neck. She sleeps in her wheel chair and has not slept in bed for years. Patient is mostly wheel chair bound but is able to walk short distances.With this background patient was brought to the ED with altered mental status. Patient does not answer questions she just screams and yells. Patient significant other is at the bedside and able to answer questions and appears reliable. Significant other states yesterday she was lethargic, didn't want to wake up to eat. Was taken to [facility] at first and she began to wake up , blood work was not obtained because they could not get an IV. She was then discharged home once she started waking up. She did have bilateral LE cellulitis and was asked to continue Keflex. Within an hour after getting home she started to yell and complaining she was cold, then she began to yell and not make much sense. Significant other states she complained of the right side of her head hurting, along with mouth and tongue for the last 2 weeks. She does have chronic diarrhea and nausea, not more than normal. Patient screams even louder when neck is moved, family states she is always tender in her neck due to the ? hardware. She is on Cephalexin daily for prophylaxis for her cervical spine. Significant other states she behaved this way last time she was septic with c diff 1 year ago. Patient had abdominal distention upon arrival and a Ocampo was placed. UO 1700 cc per chart. ID consulted for evaluation and Mment of sepsis in IC pt, r/o meningoencephalitis. Antibiotics Past Medical History DM HTN MS RA, immunocompromised Questionable CHF Osteoporosis Past Surgical History Cervical fusion 2007 Lines Line sites with no e.o infection Past Medical History reviewed Allergies: Coded Allergies: hydromorphone (Verified Allergy, Unknown, 12/06/16) metformin (Verified Allergy, Unknown, 12/06/16) Objective . Vital Signs Date Time Temp Pulse Resp B/P (MAP) Pulse Ox O2 Delivery O2 Flow Rate FiO2 12/10/16 12:00 97 12/10/16 12:00 98.4 97 20 139/69 (92) 95 12/10/16 11:38 94 Nasal Cannula 2.00 12/10/16 10:00 130 12/10/16 08:00 98.8 104 22 146/73 (97) 95 12/10/16 08:00 104 12/10/16 06:00 88 12/10/16 04:00 98.5 82 20 147/90 (109) 95 12/10/16 00:00 98 12/10/16 00:00 97.7 86 16 138/65 (89) 96 12/09/16 21:02 95 Nasal Cannula 2.00 12/09/16 20:00 97.5 84 16 180/80 (113) 96 12/09/16 18:00 100 12/09/16 16:00 106 12/09/16 16:00 98.7 106 22 177/77 (110) 93 Laboratory Tests Test 12/10/16 02:00 12/10/16 02:40 12/10/16 05:07 Blood Gas Puncture Site RT RADIAL Blood Gas Patient Temperature 98.6 Blood Gas HCO3 19 mmol/L Blood Gas Base Excess -4.9 mmol/L Blood Gas Oxygen Saturation 93 % Arterial Blood pH 7.40 Arterial Blood Partial Pressure CO2 31 mmHg Arterial Blood Partial Pressure O2 79 mmHg Arterial Blood Oxygen Content 7.7 Vol % Arterial Blood Carboxyhemoglobin 1.4 % Arterial Blood Methemoglobin 1.1 % Blood Gas Hemoglobin 5.7 G/DL Oxygen Delivery Device NASAL CANNULA Blood Gas Liter Flow 2 L/M White Blood Count 5.3 TH/MM3 Red Blood Count 3.43 MIL/MM3 Hemoglobin 8.3 GM/DL Hematocrit 26.2 % Mean Corpuscular Volume 76.4 FL Mean Corpuscular Hemoglobin 24.2 PG Mean Corpuscular Hemoglobin Concent 31.6 % Red Cell Distribution Width 17.7 % Platelet Count 223 TH/MM3 Mean Platelet Volume 7.6 FL Neutrophils (%) (Auto) 95.1 % Lymphocytes (%) (Auto) 2.0 % Monocytes (%) (Auto) 2.5 % Eosinophils (%) (Auto) 0.0 % Basophils (%) (Auto) 0.4 % Neutrophils # (Auto) 5.0 TH/MM3 Lymphocytes # (Auto) 0.1 TH/MM3 Monocytes # (Auto) 0.1 TH/MM3 Eosinophils # (Auto) 0.0 TH/MM3 Basophils # (Auto) 0.0 TH/MM3 CBC Comment DIFF FINAL Differential Comment Blood Urea Nitrogen 18 MG/DL Creatinine 0.37 MG/DL Random Glucose 186 MG/DL Total Protein 4.9 GM/DL Calcium Level 7.3 MG/DL Magnesium Level 1.8 MG/DL Sodium Level 145 MEQ/L Potassium Level 3.2 MEQ/L Chloride Level 115 MEQ/L Carbon Dioxide Level 20.6 MEQ/L Anion Gap 9 MEQ/L Estimat Glomerular Filtration Rate 187 ML/MIN Protein Corrected Calcium 8.5 MG/DL Ammonia 38 MCMOL/L Prealbumin 15 MG/DL Microbiology Date/Time Source Procedure Growth Status 12/06/16 02:00 Blood Peripheral Aerobic Blood Culture - Preliminary NO GROWTH IN 2 DAYS Resulted 12/06/16 02:00 Blood Peripheral Anaerobic Blood Culture - Preliminary NO GROWTH IN 2 DAYS Resulted 12/06/16 01:34 Blood Peripheral Aerobic Blood Culture - Preliminary NO GROWTH IN 2 DAYS Resulted 12/06/16 01:34 Blood Peripheral Anaerobic Blood Culture - Preliminary NO GROWTH IN 2 DAYS Resulted 12/06/16 15:52 Cerebral Spinal Fluid Lumbar Puncture Fungal Smear - Final NO FUNGAL ELEMENTS SEEN. Resulted 12/06/16 15:52 Cerebral Spinal Fluid Lumbar Puncture Fungal Culture Pending Resulted 12/06/16 15:52 Cerebral Spinal Fluid Lumbar Puncture Acid Fast Stain - Final NO ACID FAST BACILLI SEEN Resulted 12/06/16 15:52 Cerebral Spinal Fluid Lumbar Puncture Mycobacterial Culture Pending Resulted 12/06/16 15:52 Cerebral Spinal Fluid Lumbar Puncture Gram Stain - Final Resulted 12/06/16 15:52 Cerebral Spinal Fluid Lumbar Puncture CSF Culture - Preliminary NO GROWTH IN 48 HOURS. Resulted 12/06/16 06:20 Wound Leg Gram Stain - Final Resulted 12/06/16 06:20 Wound Culture - Preliminary Serratia Marcescens Gram Negative Olayinka Resulted Imaging Head CT 12/10/16 0000 Signed Impressions: Service Date/Time: Saturday, December 10, 2016 02:28 - CONCLUSION: 1. No acute abnormality is seen. 2. White matter demyelination. 3. Small focal area of encephalomalacia at the left cerebellar hemisphere. Marcus Chahal MD Chest X-Ray 12/08/16 Signed Impressions: Service Date/Time: Thursday, December 08, 2016 01:26 - CONCLUSION: 1. Left central line in superior vena cava without pneumothorax. Baljeet Yap MD Brain MRI 12/06/161941 Signed Impressions: Service Date/Time: Tuesday, December 06, 2016 21:13 - CONCLUSION: 1. Chronic nonspecific white matter changes bilaterally and bilateral cortical atrophy.. 2. 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 Kenroy Luong MD Head CT 12/06/16199 Signed Impressions: Service Date/Time: Tuesday, December 06, 2016 03:15 - CONCLUSION: Motion degraded exam showing moderate white matter hypodensity of undetermined chronicity. Marcus Buchanan MD Chest X-Ray 12/06/16199 Signed Impressions: Service Date/Time: Tuesday, December 06, 2016 01:56 - CONCLUSION: No acute cardiopulmonary disease Marcus Buchanan MD Neck Ultrasound 12/06/16 Signed Impressions: Service Date/Time: Tuesday, December 06, 2016 08:06 - CONCLUSION: No abscess observed. Ultrasound evaluation for an abscess in this area is very difficult and an abscess can easily be occult by ultrasound evaluation. CT or MRI is more sensitive. Mukul Gary Jr., MD Lumbar Puncture Fluoroscopy 12/06/16 Signed Impressions: Service Date/Time: Tuesday, December 06, 2016 15:52 - CONCLUSION: Uncomplicated fluoroscopically guided lumbar puncture with pressures as above. Rg Paz MD Head/Brain Mag Res Venography 12/06/16 Signed Impressions: Service Date/Time: Tuesday, December 06, 2016 21:13 - CONCLUSION: Limited study. Grossly unremarkable exam. Kenroy Luong MD Head Magnetic Resonance Angiography 12/06/16 Signed Impressions: Service Date/Time: Tuesday, December 06, 2016 21:13 - CONCLUSION: Normal examination for a patient of this age. Kenroy Luong MD Hand X-Ray 12/06/16 Signed Impressions: Service Date/Time: Tuesday, December 06, 2016 20:04 - CONCLUSION: Extensive arthritis throughout the hand and wrist. Kenroy Luong MD Cervical Spine MRI 12/06/16 0000 Signed Impressions: Service Date/Time: Tuesday, December 06, 2016 21:13 - CONCLUSION: Extremely limited MRI of the cervical spine. Kenroy Luong MD Abdomen/Pelvis CT 12/06/16 0000 Signed Impressions: Service Date/Time: Tuesday, December 06, 2016 03:21 - CONCLUSION: No definite acute CT findings in the abdomen or pelvis. Marcus Buchanan MD Physical Exam GENERAL: Patient is in no acute distress. HEENT: No icterus. No conjunctival erythema. NECK: Supple. LUNGS: Clear breath sounds. Decreased. CARDIAC: Regular rate and rhythm ABDOMEN: Soft, non tender. EXTREMITIES: No CCE. No eryhtema at LLE. SKIN: No rash. Assessment & Plan Severe Sepsis present on admission. Possible meningoencephalitis, has a reported hardware in neck or had it and was removed. ? Epidural abscess/Spine Osteomyelitis. Cellulitis bilateral LE. Improved. Pannus cellulitis with fungal infection. Cdiff positive large volume diarrhea colitis. Immune compromised. RA on Prednisone and leflunomide. Acute encephalopathy: infection, sepsis, encephalitis Recs: MRI C spine negative. Consider repeat MRI brain WITH CONTRAST to r.o brain abscess especially given the fact that she was on chronic oral keflex suppression ? partially treated meningitis or brain abscess. 2D ECHO negative for vegetations. Continue Zosyn IV for cellulitis/aspiration. Continue Vanco IV for cellulitis. Continue IV acyclovir (pending CSF VZV PCR) DC flagyl can worsen encephalopathy. Start oral Vanco (meets criteria as well as no encephalopathy side effect) Continue Diflucan for pannus cellulitis with fungal component. CSF HSV PCR negative. Follow CSF VDRL Follow CSF STANISLAW virus (Immune compromised on prison steroids) Follow cultures Follow clinically. Rashaun Sweet MD Dec 10, 2016 16:03
[2016-12-10] MEDS: hydrALAZINE HCL 10 MG TAB PO PRN (17:43)
--- NOTE | 2016-12-10 18:38 | HHI.PR ---
Review/Management Daily Summary awake and oriented alert today RN feels much better mentation follows commands well moves 4 limbs, gen weakness monitor neuro dx uncertain, keep in mind Vasculitis as well Subjective Subjective Comments withdrawal sx/delirium yest i agreed to resume pain killer for severe RA, tid instead of qid obtunded post single dose ativan as she was quite agitated paranoid as per family and staff afebrile and pleasant to me psych seen pt dr Maldonado back tomorrow Active Medications Current Medications Medications (Trade) Dose Ordered Sig/Fuentes Route Start Time Stop Time Status Last Admin (NS Flush) 2 ml UNSCH PRN IV FLUSH 12/06/16 04:45 (NS Flush) 2 ml BID IV FLUSH 12/06/16 09:00 12/10/16 09:00 Pharmacy Profile Note 0 ml @ 0 mls/hr UNSCH OTHER 12/06/16 04:45 Piperacillin Sod/ Tazobactam Sod 100 ml @ 200 mls/hr Q6H IV 12/06/16 08:00 12/10/16 13:05 (Tylenol) 650 mg Q4H PRN PO 12/06/16 08:15 12/07/16 14:56 (Zofran Inj) 4 mg Q6H PRN IVP 12/06/16 08:15 (Tylenol) 650 mg Q6H PRN PO 12/06/16 08:15 (Narcan Inj) 0.4 mg UNSCH PRN IV PUSH 12/06/16 08:15 (Shaylee-Colace) 1 tab BID PO 12/06/16 09:00 12/07/16 20:22 (Milk Of Magnesia Liq) 30 ml Q12H PRN PO 12/06/16 08:15 (Senokot) 17.2 mg Q12H PRN PO 12/06/16 08:15 (Dulcolax Supp) 10 mg DAILY PRN RECTAL 12/06/16 08:15 (Lactulose Liq) 30 ml DAILY PRN PO 12/06/16 08:15 (Levemir Inj) 30 units HS SQ 12/06/16 21:00 12/07/16 20:23 (Lopressor) 50 mg Q12HR PO 12/06/16 21:00 12/10/16 09:56 Acyclovir Sodium 600 mg/Sodium Chloride 100 ml @ 100 mls/hr Q8H IV 12/06/16 17:00 12/10/16 17:32 (Tylenol Supp) 650 mg Q6H PRN RECTAL 12/06/16 14:45 (CeleXA) 20 mg DAILY PO 12/07/16 09:00 12/10/16 09:57 (Neurontin) 800 mg TID PO 12/06/16 18:00 12/10/16 17:32 (Atarax) 50 mg BID PRN PO 12/06/16 17:00 (Ditropan) 5 mg Q12HR PRN PO 12/06/16 17:00 (Arava) 20 mg DAILY PO 12/07/16 09:00 12/10/16 09:56 (Deltasone) 5 mg BID PO 12/07/16 09:00 12/10/16 09:57 (Protonix) 40 mg DAILY PO 12/07/16 09:00 12/10/16 09:00 (Lioresal) 5 mg BID PRN PO 12/07/16 07:30 Methylprednisolone Sodium Succinate 1000 mg/Dextrose 116 ml @ 232 mls/hr Q24H IV 12/07/16 09:00 12/10/16 09:55 (Pill Splitter) 1 ea UNSCH PRN OTHER 12/07/16 07:45 Levetriacetam 100 ml @ 400 mls/hr Q12HR IV 12/07/16 14:00 12/10/16 09:55 (D50w (Vial) Inj) 50 ml UNSCH PRN IV PUSH 12/07/16 18:15 (Glucagon Inj) 1 mg UNSCH PRN OTHER 12/07/16 18:15 (NovoLOG SUPPLEMENTAL SCALE) 1 ACHS SLIDING SCALE SQ 12/07/16 21:00 12/10/16 17:00 (Lactinex) 1 tab TID PO 12/08/16 09:00 12/10/16 17:33 Potassium Chloride 100 ml @ 50 mls/hr Q2H PRN IV 12/08/16 09:30 12/10/16 09:54 Potassium Chloride 100 ml @ 50 mls/hr Q2H PRN IV 12/08/16 09:30 (K-Lyte Cl Eff) 50 meq UNSCH PRN PO 12/08/16 09:30 Potassium Chloride 100 ml @ 25 mls/hr UNSCH PRN IV 12/08/16 09:30 12/08/16 20:41 Potassium Chloride 100 ml @ 50 mls/hr Q2H PRN IV 12/08/16 09:30 Magnesium Sulfate 4 gm/Sodium Chloride 100 ml @ 50 mls/hr UNSCH PRN IV 12/08/16 09:30 (Mag-Ox) 800 mg UNSCH PRN PO 12/08/16 09:30 Magnesium Sulfate 2 gm/Sodium Chloride 100 ml @ 50 mls/hr UNSCH PRN IV 12/08/16 09:30 (K-Phos) 2,000 mg Q4H PRN PO 12/08/16 09:30 Sodium Phosphate 30 mmol/Sodium Chloride 250 ml @ 42 mls/hr UNSCH PRN IV 12/08/16 09:30 (K-Phos) 2,000 mg UNSCH PRN PO/TUBE 12/08/16 09:30 Potassium Phosphate 30 mmol/ Sodium Chloride 260 ml @ 42 mls/hr UNSCH PRN IV 12/08/16 09:30 (Diflucan) 100 mg DAILY PO 12/09/16 09:00 12/10/16 09:56 (VANCOMYCIN for oral use only) 125 mg QID PO 12/08/16 18:00 12/10/16 17:32 Sodium Chloride 1,000 ml @ 84 mls/hr [id number] IV 12/09/16 09:30 12/09/16 20:28 (Apresoline) 10 mg Q6HR PRN PO 12/09/16 10:00 12/10/16 17:43 (Vasotec Inj) 2.5 mg Q6H PRN IV PUSH 12/09/16 09:15 12/09/16 11:24 (Tums Chew) 500 mg Q12HR CHEW 12/09/16 09:15 12/10/16 09:56 (Mag-Ox) 400 mg DAILY@1100 PO 12/09/16 11:00 12/12/16 10:59 12/10/16 09:56 (KCl) 20 meq DAILY PO 12/09/16 09:30 12/12/16 09:29 12/10/16 09:56 Vancomycin HCl 1250 mg/Sodium Chloride 262.5 ml @ 250 mls/hr Q12H IV 12/09/16 16:00 12/10/16 17:32 Miscellaneous Information SPECIFIC LAB TO BE DRAWN:VANCO DATE TO... ONCE ONCE .XX 12/11/16 03:45 12/11/16 03:46 (Percocet 10-325 Mg) 1 tab TID PO 12/09/16 18:00 12/09/16 17:20 (Ativan Inj) 1 mg BID PRN IV 12/09/16 16:15 (Cardizem Inj) 20 mg Q8HR IV 12/09/16 22:00 12/10/16 13:06 (Apresoline Inj) 20 mg Q4H PRN IV PUSH 12/09/16 21:30 12/10/16 14:45 Iron Sucrose 100 mg/Sodium Chloride 105 ml @ 105 mls/hr DAILY IV 12/10/16 09:00 12/12/16 09:59 12/10/16 09:59 (ZyPREXA) 5 mg Q12HR PO 12/10/16 14:45 Allergies Allergies Coded Allergies hydromorphone (Verified Allergy, Unknown, 12/06/16) metformin (Verified Allergy, Unknown, 12/06/16) Exam I&O / VS Vital Signs Date Time Temp Pulse Resp B/P (MAP) Pulse Ox O2 Delivery O2 Flow Rate FiO2 12/10/16 16:00 100.1 96 22 161/82 (108) 96 12/10/16 16:00 96 12/10/16 14:00 98 12/10/16 12:00 97 12/10/16 12:00 98.4 97 20 139/69 (92) 95 12/10/16 11:38 94 Nasal Cannula 2.00 12/10/16 10:00 130 12/10/16 08:00 98.8 104 22 146/73 (97) 95 12/10/16 08:00 104 12/10/16 06:00 88 12/10/16 04:00 98.5 82 20 147/90 (109) 95 12/10/16 00:00 98 12/10/16 00:00 97.7 86 16 138/65 (89) 96 12/09/16 21:02 95 Nasal Cannula 2.00 12/09/16 20:00 97.5 84 16 180/80 (113) 96 Objective Micro and Labs Laboratory Tests Test 12/10/16 02:00 12/10/16 02:40 12/10/16 05:07 Blood Gas Puncture Site RT RADIAL Blood Gas Patient Temperature 98.6 Blood Gas HCO3 19 Blood Gas Base Excess -4.9 Blood Gas Oxygen Saturation 93 Arterial Blood pH 7.40 Arterial Blood Partial Pressure CO2 31 Arterial Blood Partial Pressure O2 79 Arterial Blood Oxygen Content 7.7 Arterial Blood Carboxyhemoglobin 1.4 Arterial Blood Methemoglobin 1.1 Blood Gas Hemoglobin 5.7 Oxygen Delivery Device NASAL CANNULA Blood Gas Liter Flow 2 White Blood Count 5.3 Red Blood Count 3.43 Hemoglobin 8.3 Hematocrit 26.2 Mean Corpuscular Volume 76.4 Mean Corpuscular Hemoglobin 24.2 Mean Corpuscular Hemoglobin Concent 31.6 Red Cell Distribution Width 17.7 Platelet Count 223 Mean Platelet Volume 7.6 Neutrophils (%) (Auto) 95.1 Lymphocytes (%) (Auto) 2.0 Monocytes (%) (Auto) 2.5 Eosinophils (%) (Auto) 0.0 Basophils (%) (Auto) 0.4 Neutrophils # (Auto) 5.0 Lymphocytes # (Auto) 0.1 Monocytes # (Auto) 0.1 Eosinophils # (Auto) 0.0 Basophils # (Auto) 0.0 CBC Comment DIFF FINAL Differential Comment Blood Urea Nitrogen 18 Creatinine 0.37 Random Glucose 186 Total Protein 4.9 Calcium Level 7.3 Magnesium Level 1.8 Sodium Level 145 Potassium Level 3.2 Chloride Level 115 Carbon Dioxide Level 20.6 Anion Gap 9 Estimat Glomerular Filtration Rate 187 Protein Corrected Calcium 8.5 Ammonia 38 Prealbumin 15 Date/Time Source Procedure Growth Status 12/06/16 02:00 Blood Peripheral Aerobic Blood Culture - Preliminary NO GROWTH IN 4 DAYS Resulted 12/06/16 02:00 Blood Peripheral Anaerobic Blood Culture - Preliminary NO GROWTH IN 4 DAYS Resulted 12/06/16 15:52 Cerebral Spinal Fluid Lumbar Puncture Fungal Smear - Final NO FUNGAL ELEMENTS SEEN. Resulted 12/06/16 15:52 Cerebral Spinal Fluid Lumbar Puncture Fungal Culture Pending Resulted 12/06/16 06:20 Wound Leg Gram Stain - Final Complete 12/06/16 06:20 Wound Culture - Final Serratia Marcescens Morganella Morganii Complete Rosalio Gonzalez MD Dec 10, 2016 18:38
[2016-12-10] MEDS: INSULIN DETEMIR 100 UNITS/ML VIAL SQ SCH (21:00)
[2016-12-11] VITALS (13 sets, daily range): BP systolic 114–186; BP diastolic 64–89; PULSE 74–102; RESP 16–24; TEMP 97.4–98.6; O2SAT 94–98
[2016-12-11] MEDS: PIPERACIL-TAZO 4.5 GM PREMIX 100 ML IV SCH ×3 (02:01→13:26)
[2016-12-11] MEDS ORDERED: PHARMACY ORDERED LAB ONE (03:45)
[2016-12-11 03:51] LABS: AUTOMATED NEUTROPHIL # 3.9 TH/MM3 (1.8-7.7); BASOPHIL % 0.1 % (0.0-2.0); EOSINOPHIL % 0.1 % (0.0-4.0); HEMATOCRIT 25.4 % (35.0-46.0); HEMO FLAGS DIFF FINAL; LYMPH % 2.4 % (9.0-44.0); LYMPHOCYTE # 0.1 TH/MM3 (1.0-4.8); MEAN CORPUSCULAR HEMOGLOBIN 24.5 PG (27.0-34.0); MEAN CORPUSCULAR HGB CONC 32.2 % (32.0-36.0); MONO % 5.4 % (0.0-8.0); PLATELET COUNT 201 TH/MM3 (150-450); RED BLOOD COUNT 3.34 MIL/MM3 (4.00-5.30); RED CELL DISTRIBUTION WIDTH 17.3 % (11.6-17.2); WHITE BLOOD COUNT 4.2 TH/MM3 (4.0-11.0)
[2016-12-11 04:24] LABS: BICARBONATE 23.5 MEQ/L (21.0-32.0); MAGNESIUM 2.1 MG/DL (1.5-2.5); POTASSIUM 3.3 MEQ/L (3.5-5.1)
[2016-12-11 04:25] LABS: VANCOMYCIN TROUGH 20.8 MCG/ML (5.0-10.0)
[2016-12-11] MEDS: VANCOMYCIN INJ 1,250 MG in SODIUM CHLOR 0.9% 250 ML INJ 250 ML IV SCH (04:25)
[2016-12-11] MEDS: DILTIAZEM HCL 25 MG/5 ML VIAL IV SCH ×3 (05:24→20:15)
[2016-12-11] MEDS: POTASSIUM CHLOR 40 MEQ PREMIX 100 ML IV PRN ×2 (06:15→23:57)
[2016-12-11] MEDS: hydrALAZINE HCL 20 MG/ML VIAL IV PUSH PRN (07:00)
[2016-12-11] MEDS: INSULIN ASPART SUPPLEMENTAL SCALE SQ SCH ×4 (08:00→21:00)
[2016-12-11] MEDS: methylPREDNISolone SO SUCC INJ 1,000 MG in DEXTROSE 5% IN WATER 100ML INJ 100 ML IV SCH ×2 (08:38)
[2016-12-11] MEDS: ACYCLOVIR INJ 600 MG in SODIUM CHLORIDE 0.9% INJ 100 ML IV SCH ×2 (08:38→16:45)
[2016-12-11] MEDS: levETIRAcetam 1000 MG INJ 100 ML IV SCH ×2 (08:38→20:15)
[2016-12-11] MEDS: IRON SUCROSE INJ 100 MG in SODIUM CHLORIDE 0.9% INJ 100 ML IV SCH (08:38)
[2016-12-11] MEDS: VANCOMYCIN 500 MG VIAL (FOR ORAL USE ONLY) PO SCH ×4 (08:39→20:15)
[2016-12-11] MEDS: LEFLUNOMIDE 20 MG TAB PO SCH (08:39)
[2016-12-11] MEDS: LACTOBACILLUS ACIDOPHILUS TAB PO SCH ×3 (08:39→17:31)
[2016-12-11] MEDS: GABAPENTIN 400 MG CAP PO SCH ×3 (08:39→17:31)
[2016-12-11] MEDS: POTASSIUM CHLORIDE 20 MEQ CONTROLLED RELEASE TAB PO SCH (08:39)
[2016-12-11] MEDS: SODIUM CHLORIDE 0.9% FLUSH 10 ML FLUSH IV FLUSH SCH ×2 (08:39→21:00)
[2016-12-11] MEDS: METOPROLOL TARTRATE 50 MG TAB PO SCH ×2 (08:39→20:16)
[2016-12-11] MEDS: predniSONE 5 MG TAB PO SCH ×2 (08:39→20:16)
[2016-12-11] MEDS: FLUCONAZOLE 100 MG TAB PO SCH (08:39)
[2016-12-11] MEDS: PANTOPRAZOLE SOD 40 MG DELAYED RELEASE TAB PO SCH (08:39)
[2016-12-11] MEDS: DOCUSATE SODIUM 50 MG/SENNA 8.6 MG TAB PO SCH ×2 (08:40→20:16)
[2016-12-11] MEDS: CITALOPRAM HYDROBROMIDE 20 MG TAB PO SCH (08:40)
[2016-12-11] MEDS: OLANZapine 5 MG TAB PO SCH ×2 (08:40→20:16)
[2016-12-11] MEDS: CALCIUM CARBONATE 500 MG CHEWABLE TAB CHEW SCH ×2 (08:40→20:15)
[2016-12-11] MEDS: oxyCODONE/ACETAMINOPHEN 10 MG/325 MG TAB PO SCH ×4 (09:49→22:23)
[2016-12-11] MEDS: MAGNESIUM OXIDE 400 MG TAB PO SCH ×2 (09:49→10:08)
--- NOTE | 2016-12-11 09:51 | HHI.PR ---
Subjective Remarks in no acute distress. Tmax 100.1. has some generalized body ache. Objective Vitals Vital Signs Date Time Temp Pulse Resp B/P (MAP) Pulse Ox O2 Delivery O2 Flow Rate FiO2 12/11/16 07:23 98 Nasal Cannula 2.00 12/11/16 06:00 74 12/11/16 04:00 98.4 78 16 148/72 (97) 97 12/11/16 04:00 78 12/11/16 02:00 84 12/11/16 00:00 98.6 84 17 114/64 (81) 97 12/11/16 00:00 84 12/10/16 22:00 96 12/10/16 21:16 96 Nasal Cannula 2.00 12/10/16 20:00 98.4 110 24 161/83 (109) 95 12/10/16 20:00 110 12/10/16 18:00 106 12/10/16 16:00 100.1 96 22 161/82 (108) 96 12/10/16 16:00 96 12/10/16 14:00 98 12/10/16 12:00 97 12/10/16 12:00 98.4 97 20 139/69 (92) 95 12/10/16 11:38 94 Nasal Cannula 2.00 12/10/16 10:00 130 I/O 12/10/16 12/10/16 12/10/16 12/11/16 12/11/16 12/11/16 07:00 15:00 23:00 07:00 15:00 23:00 Intake Total 974 ml 816 ml 1221 ml 2312 ml Output Total 520 ml 850 ml 1000 ml Balance 454 ml 816 ml 371 ml 1312 ml Intake Oral 200 ml 50 ml IV Total 974 ml 816 ml 1021 ml 2262 ml Output Urine Total 420 ml 450 ml 950 ml Stool Total 100 ml 400 ml 50 ml Result Diagram: 12/11/16 0338 12/11/16 0338 Imaging Last Impressions Head CT 12/10/16 0000 Signed Impressions: Service Date/Time: Saturday, December 10, 2016 02:28 - CONCLUSION: 1. No acute abnormality is seen. 2. White matter demyelination. 3. Small focal area of encephalomalacia at the left cerebellar hemisphere. Marcus Chahal MD Chest X-Ray 12/08/16 0000 Signed Impressions: Service Date/Time: Thursday, December 08, 2016 01:26 - CONCLUSION: 1. Left central line in superior vena cava without pneumothorax. Baljeet Yap MD Brain MRI 12/06/161941 Signed Impressions: Service Date/Time: Tuesday, December 06, 2016 21:13 - CONCLUSION: 1. Chronic nonspecific white matter changes bilaterally and bilateral cortical atrophy.. 2. 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 Kenroy Luong MD Neck Ultrasound 12/06/16 Signed Impressions: Service Date/Time: Tuesday, December 06, 2016 08:06 - CONCLUSION: No abscess observed. Ultrasound evaluation for an abscess in this area is very difficult and an abscess can easily be occult by ultrasound evaluation. CT or MRI is more sensitive. Mukul Gary Jr., MD Lumbar Puncture Fluoroscopy 12/06/16 Signed Impressions: Service Date/Time: Tuesday, December 06, 2016 15:52 - CONCLUSION: Uncomplicated fluoroscopically guided lumbar puncture with pressures as above. Rg Paz MD Head/Brain Mag Res Venography 12/06/16 Signed Impressions: Service Date/Time: Tuesday, December 06, 2016 21:13 - CONCLUSION: Limited study. Grossly unremarkable exam. Kenroy Luong MD Head Magnetic Resonance Angiography 12/06/16 Signed Impressions: Service Date/Time: Tuesday, December 06, 2016 21:13 - CONCLUSION: Normal examination for a patient of this age. Kenroy Luong MD Hand X-Ray 12/06/16 Signed Impressions: Service Date/Time: Tuesday, December 06, 2016 20:04 - CONCLUSION: Extensive arthritis throughout the hand and wrist. Kenroy Luong MD Cervical Spine MRI 12/06/16 Signed Impressions: Service Date/Time: Tuesday, December 06, 2016 21:13 - CONCLUSION: Extremely limited MRI of the cervical spine. Kenroy Luong MD Abdomen/Pelvis CT 12/06/16 Signed Impressions: Service Date/Time: Tuesday, December 06, 2016 03:21 - CONCLUSION: No definite acute CT findings in the abdomen or pelvis. Marcus Buchanan MD Objective Remarks GENERAL: This is a well-nourished, well-developed patient, in no apparent distress. CARDIOVASCULAR: Regular rate and regular rhythm without murmurs, gallops, or rubs. RESPIRATORY: Clear to auscultation. Breath sounds equal bilaterally. No wheezes , rales, or rhonchi. GASTROINTESTINAL: Abdomen soft, non-tender, nondistended. Normal, active bowel sounds MUSCULOSKELETAL: Extremities without clubbing, cyanosis, or edema. NEURO: awake and alert. Procedures central line placement. Medications and IVs Current Medications Sodium Chloride 1,000 ml @ 1,000 mls/hr Q1H ONCE IV Last administered on 12/06 02:15; Start 12/06/16 at 02:00; Stop 12/06/16 at 02:59; Status DC Acetaminophen (Tylenol Supp) 650 mg ONCE ONCE RECTAL Last administered on 02:49; Start 12/06/16 at 02:00; Stop 12/06/16 at 02:03; Status DC Piperacillin Sod/ Tazobactam Sod 50 ml @ 100 mls/hr ONCE ONCE IV Last administered on 12/06/16 02:49; Start 12/06/16 at 02:00; Stop 12/06/16 at 02 :29; Status DC Vancomycin HCl 1000 mg/Sodium Chloride 250 ml @ 250 mls/hr ONCE ONCE IV Last administered on 12/06/16 02:58; Start 12/06/16 at 02:00; Stop 12/06/16 at 02 :59; Status DC Lorazepam (Ativan Inj) 1 mg ONCE ONCE IV PUSH Last administered on 12/06/16 03:09; Start 12/06/16 at 03:15; Stop 12/06/16 at 03:16; Status DC Iohexol (Omnipaque 350 Inj) 80 ml STK-MED ONCE IVCONTRAST Last administered on 12/06/16 01:36; Start 12/06/16 at 01:36; Stop 12/06/16 at 03:22; Status DC Sodium Chloride 1,000 ml @ 1,000 mls/hr Q1H ONCE IV Last administered on 12/06 04:13; Start 12/06/16 at 03:53; Stop 12/06/16 at 04:52; Status DC Sodium Chloride 800 ml @ 1,000 mls/hr Q48M ONCE IV Last administered on 04:13; Start 12/06/16 at 03:53; Stop 12/06/16 at 04:41; Status DC Sodium Chloride (NS Flush) 2 ml UNSCH PRN IV FLUSH FLUSH AFTER USING IV ACCESS ; Start 12/06/16 at 04:45 Sodium Chloride (NS Flush) 2 ml BID IV FLUSH Last administered on 12/11/16 08 :39; Start 12/06/16 at 09:00 Naloxone HCl (Narcan Inj) 0.4 mg UNSCH PRN IV PUSH SEE LABEL COMMENTS; Start 12/06/16 at 04:45; Stop 12/06/16 at 09:14; Status DC Pharmacy Profile Note 0 ml @ 0 mls/hr UNSCH OTHER ; Start 12/06/16 at 04:45 Piperacillin Sod/ Tazobactam Sod 100 ml @ 200 mls/hr Q6H IV Last administered on 12/11/16 08:38; Start 12/06/16 at 08:00 Metoprolol Tartrate (Lopressor) 25 mg ONCE ONCE PO ; Start 12/06/16 at 06:30; Stop 12/06/16 at 06:45; Status DC Diltiazem HCl (Cardizem Inj) 15 mg ONCE ONCE IV Last administered on 06:55; Start 12/06/16 at 06:45; Stop 12/06/16 at 06:51; Status DC Diltiazem HCl (Cardizem Inj) 15 mg Q4H PRN IV HR>120 or BP >160/90 Last administered on 12/09/16 07:52; Start 12/06/16 at 06:45; Stop 12/09/16 at 19 :15; Status DC Diltiazem HCl (Cardizem Inj) 20 mg Q8H IV Last administered on 12/09/16 14:45 ; Start 12/06/16 at 14:00; Stop 12/09/16 at 19:15; Status DC Sodium Chloride 1,000 ml @ 100 mls/hr Q10H IV Last administered on 12/08/16 17:35; Start 12/06/16 at 08:02; Stop 12/08/16 at 21:26; Status DC Sodium Chloride (NS Flush) 2 ml UNSCH PRN IV FLUSH FLUSH AFTER USING IV ACCESS ; Start 12/06/16 at 08:15; Stop 12/06/16 at 09:14; Status DC Sodium Chloride (NS Flush) 2 ml BID IV FLUSH ; Start 12/06/16 at 09:00; Stop 12/06/16 at 09:14; Status DC Acetaminophen (Tylenol) 650 mg Q4H PRN PO TEMP > 100.4 Last administered on 14:56; Start 12/06/16 at 08:15 Ondansetron HCl (Zofran Inj) 4 mg Q6H PRN IVP NAUSEA OR VOMITING; Start at 08:15 Prochlorperazine (Compazine Supp) 25 mg Q12H PRN RECTAL NAUSEA OR VOMITING; Start 12/06/16 at 08:15; Stop 12/06/16 at 16:46; Status DC Acetaminophen (Tylenol) 650 mg Q6H PRN PO PAIN SCALE 1 TO 2; Start 12/06/16 at 08:15 Oxycodone/ Acetaminophen (Percocet 5-325 Mg) 1 tab Q6H PRN PO PAIN SCALE 3 TO 5; Start 12/06/16 at 08:15; Stop 12/06/16 at 16:46; Status DC Oxycodone/ Acetaminophen (Percocet 10-325 Mg) 1 tab Q6H PRN PO PAIN SCALE 6 TO 10 Last administered on 12/06/16 15:14; Start 12/06/16 at 08:15; Stop at 16:46; Status DC Morphine Sulfate (Morphine Inj) 2 mg Q3H PRN IV PUSH Pain 3-5; if unable to take PO Last administered on 12/06/16 09:35; Start 12/06/16 at 08:15; Stop 12/06/16 at 16:46; Status DC Morphine Sulfate (Morphine Inj) 4 mg Q3H PRN IV PUSH Pain 6-10;if unable to take PO Last administered on 12/06/16 16:27; Start 12/06/16 at 08:15; Stop 12/06/16 at 16:46; Status DC Naloxone HCl (Narcan Inj) 0.4 mg UNSCH PRN IV PUSH SEE LABEL COMMENTS; Start 12/06/16 at 08:15 Senna/Docusate Sodium (Shaylee-Colace) 1 tab BID PO Last administered on 20:22; Start 12/06/16 at 09:00 Magnesium Hydroxide (Milk Of Magnesia Liq) 30 ml Q12H PRN PO MILD - MODERATE CONSTIPATION; Start 12/06/16 at 08:15 Sennosides (Senokot) 17.2 mg Q12H PRN PO MODERATE - SEVERE CONSTIPATION; Start 12/06/16 at 08:15 Bisacodyl (Dulcolax Supp) 10 mg DAILY PRN RECTAL SEVERE CONSITIPATION; Start 12/06/16 at 08:15 Lactulose (Lactulose Liq) 30 ml DAILY PRN PO SEVERE CONSITIPATION; Start 12/06 at 08:15 Vancomycin HCl 1250 mg/Sodium Chloride 262.5 ml @ 250 mls/hr Q12H IV Last administered on 12/07/16 08:38; Start 12/06/16 at 12:00; Stop 12/07/16 at 15 :53; Status DC Miscellaneous Information SPECIFIC LAB TO BE DRAWN:VANCOMYCIN TROUGH DATE TO... ONCE ONCE .XX ; Start 12/07/16 at 11:45; Stop 12/07/16 at 11:45; Status DC Metoprolol Tartrate (Lopressor Inj) 5 mg Q6H PRN IV PUSH tachycardia Last administered on 12/09/16 15:11; Start 12/06/16 at 13:00; Stop 12/09/16 at 20 :11; Status DC Insulin Detemir (Levemir Inj) 30 units HS SQ Last administered on 12/10/16 21 :00; Start 12/06/16 at 21:00 Acetaminophen (Tylenol Supp) 650 mg Q6H PRN RECTAL FEVER; Start 12/06/16 at 13 :30; Status UNV Metoprolol Tartrate (Lopressor) 50 mg Q12HR PO Last administered on 12/11/16 08:39; Start 12/06/16 at 21:00 Acyclovir Sodium 600 mg/Sodium Chloride 100 ml @ 100 mls/hr Q8H IV Last administered on 12/11/16 08:38; Start 12/06/16 at 17:00 Fluconazole/ Sodium Chloride 50 ml @ 50 mls/hr Q24H IV ; Start 12/06/16 at 16: 00; Stop 12/06/16 at 16:00; Status DC Acetaminophen (Tylenol Supp) 650 mg Q6H PRN RECTAL fevers; Start 12/06/16 at 14:45 Fluconazole/ Sodium Chloride 50 ml @ 50 mls/hr Q24H IV Last administered on 18:24; Start 12/06/16 at 18:00; Stop 12/08/16 at 15:35; Status DC Ampicillin Sodium 2000 mg/Sodium Chloride 100 ml @ 400 mls/hr Q4H IV ; Start 12/06/16 at 17:00; Stop 12/06/16 at 17:16; Status DC Sodium Chloride 1,000 ml @ 75 mls/hr [id number] IV Last administered on 04:20; Start 12/06/16 at 16:41; Stop 12/09/16 at 09:10; Status DC Baclofen (Lioresal) 10 mg Q8HR PRN PO MUSCLE SPASMS; Start 12/06/16 at 17:00; Stop 12/07/16 at 07:30; Status DC Citalopram Hydrobromide (CeleXA) 20 mg DAILY PO Last administered on 08:40; Start 12/07/16 at 09:00 Gabapentin (Neurontin) 800 mg TID PO Last administered on 12/11/16 08:39; Start 12/06/16 at 18:00 Hydroxyzine HCl (Atarax) 50 mg BID PRN PO ITCHING; Start 12/06/16 at 17:00 Oxybutynin Chloride (Ditropan) 5 mg Q12HR PRN PO URGENCY; Start 12/06/16 at 17 :00 Oxycodone/ Acetaminophen (Percocet 10-325 Mg) 1 tab Q6H PRN PO PAIN SCALE 3-10 Last administered on 12/07/16 04:27; Start 12/06/16 at 17:00; Stop 12/07/16 at 07:30; Status DC Leflunomide (Arava) 20 mg DAILY PO Last administered on 12/11/16 08:39; Start 12/07/16 at 09:00 Ampicillin Sodium 2000 mg/Sodium Chloride 100 ml @ 400 mls/hr Q4H IV Last administered on 12/07/16 13:40; Start 12/06/16 at 18:00; Stop 12/07/16 at 18 :21; Status DC Atropine Sulfate (Atropine Inj) 1 mg STK-MED ONCE .ROUTE ; Start 12/06/16 at 20 :46; Stop 12/06/16 at 20:47; Status DC Epinephrine HCl (EPINEPHrine (1:10,000) INJ) 1 mg STK-MED ONCE .ROUTE ; Start 12/06/16 at 20:46; Stop 12/06/16 at 20:47; Status DC Prednisone (Deltasone) 5 mg BID PO Last administered on 12/11/16 08:39; Start 12/07/16 at 09:00 Prednisone (Deltasone) 5 mg ONCE ONCE PO ; Start 12/06/16 at 23:15; Stop 01/12 at 23:16; Status DC Enoxaparin Sodium (Lovenox Inj) 40 mg Q24H SQ ; Start 12/07/16 at 09:00; Stop 12/07/16 at 09:00; Status DC Pantoprazole Sodium (Protonix) 40 mg DAILY PO Last administered on 12/11/16 08:39; Start 12/07/16 at 09:00 Baclofen (Lioresal) 5 mg BID PRN PO MUSCLE SPASMS; Start 12/07/16 at 07:30 Methylprednisolone Sodium Succinate (SoluMEDROL INJ) 1,000 mg Q24H IV ; Start 12/07/16 at 07:30; Stop 12/07/16 at 07:35; Status DC Methylprednisolone Sodium Succinate 1000 mg/Dextrose 116 ml @ 232 mls/hr Q24H IV Last administered on 12/11/16 08:38; Start 12/07/16 at 09:00 Miscellaneous (Pill Splitter) 1 ea UNSCH PRN OTHER SEE LABEL COMMENTS; Start 12/07/16 at 07:45 Dextrose (D50w (Vial) Inj) 50 ml UNSCH PRN IV PUSH HYPOGLYCEMIA-SEE COMMENTS; Start 12/07/16 at 11:30; Stop 12/09/16 at 19:17; Status DC Glucagon (Glucagon Inj) 1 mg UNSCH PRN OTHER HYPOGLYCEMIA-SEE COMMENTS; Start 12/07/16 at 11:30; Stop 12/10/16 at 07:17; Status DC Levetriacetam 100 ml @ 400 mls/hr Q12HR IV Last administered on 12/11/16 08: 38; Start 12/07/16 at 14:00 Vancomycin HCl 1250 mg/Sodium Chloride 262.5 ml @ 250 mls/hr Q12H IV Last administered on 12/07/16 20:21; Start 12/07/16 at 21:00; Stop 12/09/16 at 15 :24; Status DC Miscellaneous Information SPECIFIC LAB TO BE HALLE... ONCE ONCE .XX ; Start at 08:45; Stop 12/08/16 at 08:46; Status DC Dextrose (D50w (Vial) Inj) 50 ml UNSCH PRN IV PUSH HYPOGLYCEMIA-SEE COMMENTS; Start 12/07/16 at 18:15 Glucagon (Glucagon Inj) 1 mg UNSCH PRN OTHER HYPOGLYCEMIA-SEE COMMENTS; Start 12/07/16 at 18:15 Insulin Aspart (NovoLOG SUPPLEMENTAL SCALE) 1 ACHS SLIDING SCALE SQ Last administered on 12/10/16 21:00; Start 12/07/16 at 21:00 Sodium Chloride 1,000 ml @ 999 mls/hr BOLUS ONCE IV Last administered on 02:00; Start 12/08/16 at 02:00; Stop 12/08/16 at 03:00; Status DC Metronidazole 100 ml @ 100 mls/hr Q8H IV Last administered on 12/08/16 12:50 ; Start 12/08/16 at 05:00; Stop 12/08/16 at 15:35; Status DC Lactobacillus Acidophilus (Lactinex) 1 tab TID PO Last administered on 08:39; Start 12/08/16 at 09:00 Furosemide (Lasix Inj) 20 mg ONCE ONCE IV PUSH Last administered on 05:49; Start 12/08/16 at 05:30; Stop 12/08/16 at 05:40; Status DC Potassium Chloride 100 ml @ 50 mls/hr Q2H PRN IV For Potassium 2.8 - 3.2 mEq/ L Last administered on 12/10/16 09:54; Start 12/08/16 at 09:30 Potassium Chloride 100 ml @ 50 mls/hr Q2H PRN IV For Potassium 2.8 - 3.2 mEq/L ; Start 12/08/16 at 09:30 Potassium Bicarb/ Potassium Chloride (K-Lyte Cl Eff) 50 meq UNSCH PRN PO For Potassium 3.3 - 3.5 mEq/L; Start 12/08/16 at 09:30 Potassium Chloride 100 ml @ 25 mls/hr UNSCH PRN IV For Potassium 3.3 - 3.5 mEq /L Last administered on 12/11/16 06:15; Start 12/08/16 at 09:30 Potassium Chloride 100 ml @ 50 mls/hr Q2H PRN IV For Potassium 3.3 - 3.5 mEq/L ; Start 12/08/16 at 09:30 Magnesium Sulfate 4 gm/Sodium Chloride 100 ml @ 50 mls/hr UNSCH PRN IV For Magnesium 0.9 - 1.1 mg/dL; Start 12/08/16 at 09:30 Magnesium Oxide (Mag-Ox) 800 mg UNSCH PRN PO For Magnesium 1.2 - 1.6 mg/dL; Start 12/08/16 at 09:30 Magnesium Sulfate 2 gm/Sodium Chloride 100 ml @ 50 mls/hr UNSCH PRN IV For Magnesium 1.2 - 1.6 mg/dL; Start 12/08/16 at 09:30 Potassium Phosphate (K-Phos) 2,000 mg Q4H PRN PO For Phosphorus < 2.5 mg/dL; Start 12/08/16 at 09:30 Sodium Phosphate 30 mmol/Sodium Chloride 250 ml @ 42 mls/hr UNSCH PRN IV For Phosphorus < 2.5 mg/dL; Start 12/08/16 at 09:30 Potassium Phosphate (K-Phos) 2,000 mg UNSCH PRN PO/TUBE SEE LABEL COMMENTS; Start 12/08/16 at 09:30 Potassium Phosphate 30 mmol/ Sodium Chloride 260 ml @ 42 mls/hr UNSCH PRN IV SEE LABEL COMMENTS; Start 12/08/16 at 09:30 Calcium Gluconate 1 gm/Sodium Chloride 110 ml @ 110 mls/hr ONCE ONCE IV Last administered on 12/08/16 12:50; Start 12/08/16 at 12:00; Stop 12/08/16 at 12 :59; Status DC Fluconazole (Diflucan) 100 mg DAILY PO Last administered on 12/11/16 08:39; Start 12/09/16 at 09:00 Vancomycin HCl (VANCOMYCIN for oral use only) 125 mg QID PO Last administered on 12/11/16 08:39; Start 12/08/16 at 18:00 Sodium Chloride 1,000 ml @ 84 mls/hr [id number] IV Last administered on 23:58; Start 12/09/16 at 09:30 Hydralazine HCl (Apresoline Inj) 20 mg Q4H PRN IV PUSH SBP>170, DBP>90 Last administered on 12/09/16 12:05; Start 12/09/16 at 10:00; Stop 12/09/16 at 20 :11; Status DC Hydralazine HCl (Apresoline) 10 mg Q6HR PRN PO SBP>160, DBP>90 Last administered on 12/10/16 17:43; Start 12/09/16 at 10:00 Enalaprilat (Vasotec Inj) 2.5 mg Q6H PRN IV PUSH SBP>160, DBP>90 Last administered on 12/09/16 11:24; Start 12/09/16 at 09:15 Calcium Carbonate (Tums Chew) 500 mg Q12HR CHEW Last administered on 08:40; Start 12/09/16 at 09:15 Magnesium Oxide (Mag-Ox) 400 mg DAILY@1100 PO Last administered on 12/10/16 09:56; Start 12/09/16 at 11:00; Stop 12/12/16 at 10:59 Potassium Chloride (KCl) 20 meq DAILY PO Last administered on 12/11/16 08:39 ; Start 12/09/16 at 09:30; Stop 12/12/16 at 09:29 Vancomycin HCl 1250 mg/Sodium Chloride 262.5 ml @ 250 mls/hr Q12H IV Last administered on 12/11/16 04:25; Start 12/09/16 at 16:00 Miscellaneous Information SPECIFIC LAB TO BE DRAWN:VANCO DATE TO... ONCE ONCE .XX Last administered on 12/11/16 03:45; Start 12/11/16 at 03:45; Stop at 03:46; Status DC Lorazepam (Ativan Inj) 2 mg STK-MED ONCE .ROUTE ; Start 12/09/16 at 16:08; Stop 12/09/16 at 16:09; Status DC Oxycodone/ Acetaminophen (Percocet 10-325 Mg) 1 tab TID PO Last administered on 12/09/16 17:20; Start 12/09/16 at 18:00 Lorazepam (Ativan Inj) 1 mg BID PRN IV AGITATION; Start 12/09/16 at 16:15 Clonidine (Catapres) 0.1 mg NOW ONCE PO Last administered on 12/09/16 19:15 ; Start 12/09/16 at 19:15; Stop 12/09/16 at 19:16; Status DC Flumazenil (Romazicon Inj) 0.5 mg STK-MED ONCE .ROUTE Last administered on 21:01; Start 12/09/16 at 21:01; Stop 12/09/16 at 21:02; Status DC Diltiazem HCl (Cardizem Inj) 20 mg Q8HR IV Last administered on 12/11/16 05: 24; Start 12/09/16 at 22:00 Hydralazine HCl (Apresoline Inj) 20 mg Q4H PRN IV PUSH SBP>160, DBP>90 Last administered on 12/10/16 22:36; Start 12/09/16 at 21:30 Sodium Chloride 250 ml @ 15 mls/hr ONCE ONCE IV Last administered on 02:30; Start 12/10/16 at 02:30; Stop 12/10/16 at 03:27; Status DC Iron Sucrose 100 mg/Sodium Chloride 105 ml @ 105 mls/hr DAILY IV Last administered on 12/11/16 08:38; Start 12/10/16 at 09:00; Stop 12/12/16 at 09 :59 Olanzapine (ZyPREXA) 5 mg Q12HR PO Last administered on 12/11/16 08:40; Start 12/10/16 at 14:45 A/P Problem List: (1) Sepsis ICD Code: A41.9 - Sepsis, unspecified organism (2) Acute metabolic encephalopathy ICD Code: G93.41 - Metabolic encephalopathy (3) Cellulitis ICD Code: L03.90 - Cellulitis, unspecified Assessment and Plan A/P Sepsis, source likely BLE cellulitis. patient with RA on immunosuppressive Rx. Patient also with acute encephalopathy altered mental status on admission and concern of meningitis/encephalitis. LP was done and poss viral meningitis/ encephalitis. Also possible vasculitis per neuro , work up in progress. Needs MRI with contrast -Vancomycin, zosyn, acyclovir IV. DC'ed flagyl, as might worsen encephalopathy, started vanco per ID as patient with C diff. Continue diflucan -Cont IVF -Neck soft tissue US no abscess -Blood cultures negative so far. -ID following. - Pt also has chronic on and off diarrhea C diff - hx of cdiff sepsis. Positive C diff this admission treat with vanco per ID Hypokalemia. Replace. Monitor and replace as need. Acute metabolic encephalopathy, poss due to sepsis, etiology unclear at this time, work up in progress Head CT reviewed and shows white matter hypodensity, due to artifact unknown if chronic psych consult appreciated; started on Zyprexa neurology following. Seizure, started levetiracetam. 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 Urinary retention, 1500 out when barajas placed. Monitor closely UOP UA normal Abdominal CT reviewed and shows no acute disease -Cont barajas and strict I&Os Hypertension: continue cardizem- continue to monitor. Anemia , iron deficient. Started Venofer IV. Monitor H/H transfuse if HGB< 7 Chronic diarrhea, hx of c diff -C diff positive. DC flagyl as might worsen encephalopathy, started vanco per ID RA, chronic -on Leflunomide and prednisone. Severe protein calorie malnutrition: low albumin. Consult informatics developer. Will place NGT diabetes mellitus;continue with levemir and sliding scale coverage. DVT prophylaxis: SCDs Problem Qualifiers (1) Sepsis: Qualified Codes: A41.9 - Sepsis, unspecified organism Tamika Bonds MD Dec 11, 2016 09:51
--- NOTE | 2016-12-11 14:29 | HHI.IDPN ---
Subjective Subjective Remarks cynthia RN chart reviewed is a 46 y/o CM with PMHx of DM2, HTN, ? reported history of Multiple Sclerosis(s/b neurologist in past), RA on prednisone and leflulonamide, h.o Cdiff, h/o spine infection on keflex fci, Osteoporosis ? secondary to prednisone. All reported to me by significant other who knows her for last 6 years. She used to walk 6 years back then subsequently became wheel chair bound for trips. The patient is now in crippling pain secondary to RA constant neck pain inability to move neck. She sleeps in her wheel chair and has not slept in bed for years. Patient is mostly wheel chair bound but is able to walk short distances.With this background patient was brought to the ED with altered mental status. Patient does not answer questions she just screams and yells. Patient significant other is at the bedside and able to answer questions and appears reliable. Significant other states yesterday she was lethargic, didn't want to wake up to eat. Was taken to [facility] at first and she began to wake up , blood work was not obtained because they could not get an IV. She was then discharged home once she started waking up. She did have bilateral LE cellulitis and was asked to continue Keflex. Within an hour after getting home she started to yell and complaining she was cold, then she began to yell and not make much sense. Significant other states she complained of the right side of her head hurting, along with mouth and tongue for the last 2 weeks. She does have chronic diarrhea and nausea, not more than normal. Patient screams even louder when neck is moved, family states she is always tender in her neck due to the ? hardware. She is on Cephalexin daily for prophylaxis for her cervical spine. Significant other states she behaved this way last time she was septic with c diff 1 year ago. Patient had abdominal distention upon arrival and a Ocampo was placed. UO 1700 cc per chart. ID seeing Mment of sepsis in IC pt, r/o meningoencephalitis. 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 Vital Signs Date Time Temp Pulse Resp B/P (MAP) Pulse Ox O2 Delivery O2 Flow Rate FiO2 12/11/16 14:00 90 12/11/16 12:00 98.3 74 16 137/69 (91) 95 12/11/16 12:00 74 12/11/16 10:00 90 12/11/16 08:00 82 12/11/16 08:00 97.4 90 17 186/89 (121) 98 12/11/16 07:23 98 Nasal Cannula 2.00 12/11/16 06:00 74 12/11/16 04:00 98.4 78 16 148/72 (97) 97 12/11/16 04:00 78 12/11/16 02:00 84 12/11/16 00:00 98.6 84 17 114/64 (81) 97 12/11/16 00:00 84 12/10/16 22:00 96 12/10/16 21:16 96 Nasal Cannula 2.00 12/10/16 20:00 98.4 110 24 161/83 (109) 95 12/10/16 20:00 110 12/10/16 18:00 106 12/10/16 16:00 100.1 96 22 161/82 (108) 96 12/10/16 16:00 96 12/11/16 12/11/16 12/12/16 14:59 22:59 06:59 Intake Total 871 ml Balance 871 ml IV Total 871 ml . Laboratory Tests Test 12/10/16 02:40 12/11/16 03:38 White Blood Count 5.3 TH/MM3 4.2 TH/MM3 Red Blood Count 3.43 MIL/MM3 3.34 MIL/MM3 Hemoglobin 8.3 GM/DL 8.2 GM/DL Hematocrit 26.2 % 25.4 % Mean Corpuscular Volume 76.4 FL 76.0 FL Mean Corpuscular Hemoglobin 24.2 PG 24.5 PG Mean Corpuscular Hemoglobin Concent 31.6 % 32.2 % Red Cell Distribution Width 17.7 % 17.3 % Platelet Count 223 TH/MM3 201 TH/MM3 Mean Platelet Volume 7.6 FL 7.5 FL Neutrophils (%) (Auto) 95.1 % 92.0 % Lymphocytes (%) (Auto) 2.0 % 2.4 % Monocytes (%) (Auto) 2.5 % 5.4 % Eosinophils (%) (Auto) 0.0 % 0.1 % Basophils (%) (Auto) 0.4 % 0.1 % Neutrophils # (Auto) 5.0 TH/MM3 3.9 TH/MM3 Lymphocytes # (Auto) 0.1 TH/MM3 0.1 TH/MM3 Monocytes # (Auto) 0.1 TH/MM3 0.2 TH/MM3 Eosinophils # (Auto) 0.0 TH/MM3 0.0 TH/MM3 Basophils # (Auto) 0.0 TH/MM3 0.0 TH/MM3 CBC Comment DIFF FINAL DIFF FINAL Differential Comment Laboratory Tests Test 12/10/16 02:40 12/10/16 05:07 12/10/16 21:20 12/11/16 03:38 Blood Urea Nitrogen 18 MG/DL 18 MG/DL Creatinine 0.37 MG/DL 0.42 MG/DL Random Glucose 186 MG/DL 125 MG/DL Total Protein 4.9 GM/DL Calcium Level 7.3 MG/DL 7.5 MG/DL Magnesium Level 1.8 MG/DL 2.1 MG/DL Sodium Level 145 MEQ/L 146 MEQ/L Potassium Level 3.2 MEQ/L 3.8 MEQ/L 3.3 MEQ/L Chloride Level 115 MEQ/L 117 MEQ/L Carbon Dioxide Level 20.6 MEQ/L 23.5 MEQ/L Anion Gap 9 MEQ/L 6 MEQ/L Estimat Glomerular Filtration Rate 187 ML/MIN 162 ML/MIN Protein Corrected Calcium 8.5 MG/DL Ammonia 38 MCMOL/L 37 MCMOL/L Prealbumin 15 MG/DL Imaging Last Impressions Brain MRI 12/06/161941 Signed Impressions: Service Date/Time: Tuesday, December 06, 2016 21:13 - CONCLUSION: 1. Chronic nonspecific white matter changes bilaterally and bilateral cortical atrophy.. 2. 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 Kenroy Luong MD Head CT 12/06/16 0200 Signed Impressions: Service Date/Time: Tuesday, December 06, 2016 03:15 - CONCLUSION: Motion degraded exam showing moderate white matter hypodensity of undetermined chronicity. Marcus Buchanan MD Chest X-Ray 12/06/16 0200 Signed Impressions: Service Date/Time: Tuesday, December 06, 2016 01:56 - CONCLUSION: No acute cardiopulmonary disease Marcus Buchanan MD Neck Ultrasound 12/06/16 Signed Impressions: Service Date/Time: Tuesday, December 06, 2016 08:06 - CONCLUSION: No abscess observed. Ultrasound evaluation for an abscess in this area is very difficult and an abscess can easily be occult by ultrasound evaluation. CT or MRI is more sensitive. Mukul Gary Jr., MD Lumbar Puncture Fluoroscopy 12/06/16 Signed Impressions: Service Date/Time: Tuesday, December 06, 2016 15:52 - CONCLUSION: Uncomplicated fluoroscopically guided lumbar puncture with pressures as above. Rg Paz MD Head/Brain Mag Res Venography 12/06/16 Signed Impressions: Service Date/Time: Tuesday, December 06, 2016 21:13 - CONCLUSION: Limited study. Grossly unremarkable exam. Kenroy Luong MD Head Magnetic Resonance Angiography 12/06/16 Signed Impressions: Service Date/Time: Tuesday, December 06, 2016 21:13 - CONCLUSION: Normal examination for a patient of this age. Kenroy Luong MD Hand X-Ray 12/06/16 Signed Impressions: Service Date/Time: Tuesday, December 06, 2016 20:04 - CONCLUSION: Extensive arthritis throughout the hand and wrist. Kenroy Luong MD Cervical Spine MRI 12/06/16 Signed Impressions: Service Date/Time: Tuesday, December 06, 2016 21:13 - CONCLUSION: Extremely limited MRI of the cervical spine. Kenroy Luong MD Abdomen/Pelvis CT 12/06/16 Signed Impressions: Service Date/Time: Tuesday, December 06, 2016 03:21 - CONCLUSION: No definite acute CT findings in the abdomen or pelvis. Marcus Buchanan MD Physical Exam GENERAL: Obese, Cushingoid appearing female patient, in no distress SKIN: Bilateral LE tight edma, skin is dry scaly HEAD: Atraumatic. Normocephalic. No temporal or scalp tenderness. EYES: Pupils equal round and reactive. Extraocular motions intact. No scleral icterus. No injection or drainage. ENT: Nose without bleeding, purulent drainage. Oral mucosae is moist w/o thrush Toungue in midlline NECK: Trachea midline. Large neck. No lymphadenopathy. CARDIOVASCULAR: Regular rate and rhythm without murmurs. RESPIRATORY: Clear to auscultation. Breath sounds equal bilaterally. No wheezes , rales, or rhonchi. GASTROINTESTINAL: Abdomen soft, non-tender,+ quitre distended. No palpable organomegaly + BS MUSCULOSKELETAL: Extremities without clubbing, cyanosis, or edema. Multiple small joints deformities involving hands and feet NEUROLOGICAL: Awake and alert. Confused Conversant, voice dysphonic, mild slurriness of the speech L eye droopy, the rest of facial exam unremakable Psych: comfortable calm and pleasant IV line sites with no e.o infection. Assessment & Plan Remarks Severe Sepsis present on admission. Possible meningoencephalitis, CSF wityh low level lymphocytic/monocytic pleocytosis, 0 neutrophils in CSF CSF HSV PCR VDRL STANISLAW virus negative. VZV P (h/o varicella in childhood per mother @ b/s) has a reported hardware in neck or had it and was removed. no e/o Epidural abscess/Spine Osteomyelitis on rad studies Cellulitis bilateral LE Pannus cellulitis with fungal infection. Cdiff positive large volume diarrhea colitis ? source of sepsis Immune compromised. RA on Prednisone and leflunomide. Acute encephalopathy: infection, sepsis, encephalitis: improving per notes Recs: MRI C spine negative. Consider repeat MRI brain WITH CONTRAST to r.o brain abscess especially given the fact that she was on chronic oral keflex suppression ? partially treated meningitis or brain abscess. dc Zosyn dc Vanco start CFTX 2 gm daily Continue IV acyclovir (pending CSF VZV PCR) cont oral Vanco (meets criteria as well as no encephalopathy side effect) Continue Diflucan for pannus cellulitis with fungal component. Follow P CSF studies dw RN dw mother @ b/s Sandra Nascimento MD Dec 11, 2016 14:29
--- NOTE | 2016-12-11 14:51 | HHI.HCPN ---
Received call from patient's mother. Requesting another family meeting for tomorrow. Palliative care to meet with family, SundayDecember 12 at 11am. Michelle Gary, CLEANING MANAGER Dec 11, 2016 14:51
[2016-12-11 15:56] LABS: LYME IGG IMMUNOBLOT CSF None Detected bands (None Detected); LYME IGM IMMUNOBLOT CSF None Detected bands (None Detected)
[2016-12-11] MEDS: cefTRIAXone INJ 2,000 MG in SODIUM CHLORIDE 0.9% INJ 100 ML IV SCH (16:45)
[2016-12-11] MEDS: hydrALAZINE HCL 10 MG TAB PO PRN ×2 (17:31→22:42)
[2016-12-11 17:51] LABS: CALIFORNIA ENCEPH AB IGG <1:4 (<1:4); CALIFORNIA ENCEPH AB IGM <1:4 (<1:4); EAST EQUINE ENCEPH AB IGG <1:4 (<1:4); EAST EQUINE ENCEPH AB IGM <1:4 (<1:4); ST LOUIS ENCEPH AB IGG <1:4 (<1:4); ST LOUIS ENCEPH AB IGM <1:4 (<1:4)
[2016-12-11] MEDS ORDERED: VANCOMYCIN 1,000 MG/NS 250 ML IV SCH ×2 (18:00)
[2016-12-11] MEDS ORDERED: GADODIAMIDE PF 287 MG/ML 5 ML VIAL (for RAD MRI) IV PUSH ONE (18:56)
[2016-12-11] MEDS ORDERED: EPINEPHrine HCL (1:10,000) 1 MG/10 ML SYRINGE ONE (19:39)
--- NOTE | 2016-12-11 20:37 | RADRPT ---
EXAM DATE/TIME: 12/11/2016 18:08 [facility] COMPARISON: MRI BRAIN W/O CONTRAST, December 06, 2016, 21:13. CT BRAIN W/O CONTRAST, December 10, 2016, 2:28. INDICATIONS : Encephalitis. CONTRAST: 17 cc Omniscan (gadodiamide) IV MEDICAL HISTORY : Diabetes mellitus type 2. RA, Osteoporosis, possible MS. SURGICAL HISTORY : Fusion, cervical. Fusion, thoracic. Bilateral hand and feet, Left hip replacment. ENCOUNTER: Subsequent ACUITY: 1 week PAIN SCORE: Nonresponsive. LOCATION: Bilateral cranial TECHNIQUE: Multiplanar, multisequence MRI of the brain was performed both prior to and following the administrat ion of paramagnetic contrast. FINDINGS: CEREBRUM: The ventricles are normal for age. No evidence of midline shift, mass lesion, hemorrhage or acute in farction. No extraaxial fluid collections are seen. The pituitary gland and suprasellar cistern are normal in configuration. WHITE MATTER: Stable bilateral deep white matter symmetrical T2 weighted increased signal intensity POSTERIOR FOSSA: DIFFUSION IMAGING: A peripheral left cerebellar hemisphere EXTRACRANIAL: The visualized portions of the orbits and paranasal sinuses are unremarkable. POST-CONTRAST: No abnormal areas of parenchymal or dural enhancement. No evidence of blood-brain barrier breakdown. CONCLUSION: Stable MRI of the brain. Nonspecific white matter diffuse symmetrical bilateral changes. 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 Caleb Najera MD on December 11, 2016 at 20:32 Board Certified Radiologist. This report was verified electronically.
[2016-12-11] MEDS: INSULIN DETEMIR 100 UNITS/ML VIAL SQ SCH (21:00)
[2016-12-11] MEDS: SODIUM CHLOR 0.45% 1000 ML INJ 1,000 ML IV SCH (22:20)
[2016-12-12] VITALS (14 sets, daily range): BP systolic 130–178; BP diastolic 65–95; PULSE 71–109; RESP 13–24; TEMP 97.5–98.4; O2SAT 97–100
[2016-12-12] MEDS: ENALAPRILAT 2.5 MG/2 ML VIAL IV PUSH PRN (00:15)
[2016-12-12] MEDS: ACYCLOVIR INJ 600 MG in SODIUM CHLORIDE 0.9% INJ 100 ML IV SCH ×3 (01:00→17:21)
[2016-12-12] MEDS: hydrALAZINE HCL 20 MG/ML VIAL IV PUSH PRN ×2 (01:15→11:34)
[2016-12-12] MEDS: DILTIAZEM HCL 25 MG/5 ML VIAL IV SCH ×3 (05:57→19:57)
[2016-12-12] MEDS: INSULIN ASPART SUPPLEMENTAL SCALE SQ SCH ×4 (08:00→20:44)
--- NOTE | 2016-12-12 08:04 | HHI.PR ---
Subjective Remarks afeb Objective Vital Signs Date Time Temp Pulse Resp B/P (MAP) Pulse Ox O2 Delivery O2 Flow Rate FiO2 12/12/16 06:00 107 12/12/16 04:00 98.4 109 24 158/76 (103) 98 12/12/16 04:00 109 12/12/16 02:00 85 12/12/16 02:00 138/65 (89) 12/12/16 00:00 98.4 87 19 178/87 (117) 100 12/12/16 00:00 85 12/11/16 22:00 85 12/11/16 20:00 98.1 91 20 175/84 (114) 97 12/11/16 20:00 91 12/11/16 18:00 102 12/11/16 16:00 94 12/11/16 16:00 98.6 100 24 153/71 (98) 94 12/11/16 14:00 90 12/11/16 12:00 98.3 74 16 137/69 (91) 95 12/11/16 12:00 74 12/11/16 10:00 90 I/O 12/11/16 12/11/16 12/11/16 12/12/16 12/12/16 12/12/16 07:00 15:00 23:00 07:00 15:00 23:00 Intake Total 2312 ml 971 ml 2260 ml Output Total 1000 ml 2000 ml 1900 ml Balance 1312 ml 971 ml 260 ml -1900 ml Intake Oral 50 ml 360 ml IV Total 2262 ml 971 ml 1900 ml Output Urine Total 950 ml 1650 ml 1900 ml Stool Total 50 ml 350 ml # Bowel Movements 0 Result Diagram: 12/11/16 0338 12/11/162112 Objective Remarks awake pupil = left ptosis better awakens and sticks out tongue and up arms and legs for me 2017 oct alert energetic Assessment and Plan Assessment and Plan imp LP 15 wbc but protein markedly inc to 172 68L on abt id on board may be viral encephalitis i think solumedrol day 2 rec send off viral titers if enough csf echo neg eeg some sharps keppra started mra and mrv neg small left TS mri brain 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 ms i think unlikley and viral titers i would keep in icu over weekend plz 12/12/16 much better will taper off solumedrol oob with PT dc acyclovir? i would like to hsv neg vzv pend defer to id on keppra mri no major change some wm changes rim vents no change Rg Torrez MD Dec 12, 2016 08:04
[2016-12-12] MEDS: DOCUSATE SODIUM 50 MG/SENNA 8.6 MG TAB PO SCH ×3 (09:00→20:30)
[2016-12-12] MEDS: CALCIUM CARBONATE 500 MG CHEWABLE TAB CHEW SCH ×2 (09:24→19:55)
[2016-12-12] MEDS: SODIUM CHLORIDE 0.9% FLUSH 10 ML FLUSH IV FLUSH SCH ×2 (09:24→19:57)
[2016-12-12] MEDS: PANTOPRAZOLE SOD 40 MG DELAYED RELEASE TAB PO SCH (09:24)
[2016-12-12] MEDS: VANCOMYCIN 500 MG VIAL (FOR ORAL USE ONLY) PO SCH ×4 (09:24→19:56)
[2016-12-12] MEDS: levETIRAcetam 1000 MG INJ 100 ML IV SCH ×2 (09:24→19:57)
[2016-12-12] MEDS: oxyCODONE/ACETAMINOPHEN 10 MG/325 MG TAB PO SCH ×3 (09:25→18:27)
[2016-12-12] MEDS: GABAPENTIN 400 MG CAP PO SCH ×3 (09:25→18:26)
[2016-12-12] MEDS: POTASSIUM CHLORIDE 20 MEQ CONTROLLED RELEASE TAB PO SCH (09:25)
[2016-12-12] MEDS: CITALOPRAM HYDROBROMIDE 20 MG TAB PO SCH (09:25)
[2016-12-12] MEDS: OLANZapine 5 MG TAB PO SCH ×2 (09:25→19:56)
[2016-12-12] MEDS: predniSONE 5 MG TAB PO SCH ×2 (09:25→19:56)
[2016-12-12] MEDS: METOPROLOL TARTRATE 50 MG TAB PO SCH ×2 (09:25→19:56)
[2016-12-12] MEDS: FLUCONAZOLE 100 MG TAB PO SCH (09:25)
[2016-12-12] MEDS: LACTOBACILLUS ACIDOPHILUS TAB PO SCH ×3 (09:25→18:26)
[2016-12-12] MEDS: LEFLUNOMIDE 20 MG TAB PO SCH (09:25)
[2016-12-12] MEDS: POTASSIUM CHLOR 40 MEQ PREMIX 100 ML IV PRN ×2 (09:50→11:33)
[2016-12-12] MEDS: DEXTROSE 5% IV SCH ×2 (10:04)
[2016-12-12] MEDS: METHYLPREDNISOLONE SO SUCC IV SCH ×2 (10:04)
[2016-12-12] MEDS: IRON SUCROSE INJ 100 MG in SODIUM CHLORIDE 0.9% INJ 100 ML IV SCH (10:04)
[2016-12-12] MEDS: WATER IV SCH ×2 (10:04)
--- NOTE | 2016-12-12 10:44 | HHI.PR ---
Subjective Remarks in no acute distress. says that feels better today. afebrile. mother at the bedside. Objective Vitals Vital Signs Date Time Temp Pulse Resp B/P (MAP) Pulse Ox O2 Delivery O2 Flow Rate FiO2 12/12/16 08:44 98 Nasal Cannula 2.00 12/12/16 06:00 107 12/12/16 04:00 98.4 109 24 158/76 (103) 98 12/12/16 04:00 109 12/12/16 02:00 85 12/12/16 02:00 138/65 (89) 12/12/16 00:00 98.4 87 19 178/87 (117) 100 12/12/16 00:00 85 12/11/16 22:00 85 12/11/16 20:00 98.1 91 20 175/84 (114) 97 12/11/16 20:00 91 12/11/16 18:00 102 12/11/16 16:00 94 12/11/16 16:00 98.6 100 24 153/71 (98) 94 12/11/16 14:00 90 12/11/16 12:00 98.3 74 16 137/69 (91) 95 12/11/16 12:00 74 I/O 12/11/16 12/11/16 12/11/16 12/12/16 12/12/16 12/12/16 06:59 14:59 22:59 06:59 14:59 22:59 Intake Total 2312 ml 971 ml 2260 ml 100 ml Output Total 1000 ml 2000 ml 1900 ml Balance 1312 ml 971 ml 260 ml -1900 ml 100 ml Intake Oral 50 ml 360 ml IV Total 2262 ml 971 ml 1900 ml 100 ml Output Urine Total 950 ml 1650 ml 1900 ml Stool Total 50 ml 350 ml # Bowel Movements 0 Result Diagram: 12/11/16 0338 12/12/16 0900 Imaging Last Impressions Brain MRI 12/11/16 0000 Signed Impressions: Service Date/Time: Sunday, December 11, 2016 18:08 - CONCLUSION: Stable MRI of the brain. Nonspecific white matter diffuse symmetrical bilateral changes. 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 Caleb Najera MD Head CT 12/10/16 0000 Signed Impressions: Service Date/Time: Saturday, December 10, 2016 02:28 - CONCLUSION: 1. No acute abnormality is seen. 2. White matter demyelination. 3. Small focal area of encephalomalacia at the left cerebellar hemisphere. Marcus Chahal MD Chest X-Ray 12/08/16 Signed Impressions: Service Date/Time: Thursday, December 08, 2016 01:26 - CONCLUSION: 1. Left central line in superior vena cava without pneumothorax. Baljeet Yap MD Neck Ultrasound 12/06/16 Signed Impressions: Service Date/Time: Tuesday, December 06, 2016 08:06 - CONCLUSION: No abscess observed. Ultrasound evaluation for an abscess in this area is very difficult and an abscess can easily be occult by ultrasound evaluation. CT or MRI is more sensitive. Mukul Gary Jr., MD Lumbar Puncture Fluoroscopy 12/06/16 Signed Impressions: Service Date/Time: Tuesday, December 06, 2016 15:52 - CONCLUSION: Uncomplicated fluoroscopically guided lumbar puncture with pressures as above. Rg Paz MD Head/Brain Mag Res Venography 12/06/16 Signed Impressions: Service Date/Time: Tuesday, December 06, 2016 21:13 - CONCLUSION: Limited study. Grossly unremarkable exam. Kenroy Luong MD Head Magnetic Resonance Angiography 12/06/16 Signed Impressions: Service Date/Time: Tuesday, December 06, 2016 21:13 - CONCLUSION: Normal examination for a patient of this age. Kenroy Luong MD Hand X-Ray 12/06/16 Signed Impressions: Service Date/Time: Tuesday, December 06, 2016 20:04 - CONCLUSION: Extensive arthritis throughout the hand and wrist. Kenroy Luong MD Cervical Spine MRI 12/06/16 Signed Impressions: Service Date/Time: Tuesday, December 06, 2016 21:13 - CONCLUSION: Extremely limited MRI of the cervical spine. Kenroy Luong MD Abdomen/Pelvis CT 12/06/16 Signed Impressions: Service Date/Time: Tuesday, December 06, 2016 03:21 - CONCLUSION: No definite acute CT findings in the abdomen or pelvis. Marcus Buchanan MD Objective Remarks GENERAL: This is a well-nourished, well-developed patient, in no apparent distress. CARDIOVASCULAR: Regular rate and regular rhythm without murmurs, gallops, or rubs. RESPIRATORY: Clear to auscultation. Breath sounds equal bilaterally. No wheezes , rales, or rhonchi. GASTROINTESTINAL: Abdomen soft, non-tender, nondistended. Normal, active bowel sounds MUSCULOSKELETAL: Extremities without clubbing, cyanosis, or edema. NEURO: awake and alert. Procedures central line placement. Medications and IVs Current Medications Sodium Chloride 1,000 ml @ 1,000 mls/hr Q1H ONCE IV Last administered on 12/06 02:15; Start 12/06/16 at 02:00; Stop 12/06/16 at 02:59; Status DC Acetaminophen (Tylenol Supp) 650 mg ONCE ONCE RECTAL Last administered on 02:49; Start 12/06/16 at 02:00; Stop 12/06/16 at 02:03; Status DC Piperacillin Sod/ Tazobactam Sod 50 ml @ 100 mls/hr ONCE ONCE IV Last administered on 12/06/16 02:49; Start 12/06/16 at 02:00; Stop 12/06/16 at 02 :29; Status DC Vancomycin HCl 1000 mg/Sodium Chloride 250 ml @ 250 mls/hr ONCE ONCE IV Last administered on 12/06/16 02:58; Start 12/06/16 at 02:00; Stop 12/06/16 at 02 :59; Status DC Lorazepam (Ativan Inj) 1 mg ONCE ONCE IV PUSH Last administered on 12/06/16 03:09; Start 12/06/16 at 03:15; Stop 12/06/16 at 03:16; Status DC Iohexol (Omnipaque 350 Inj) 80 ml STK-MED ONCE IVCONTRAST Last administered on 12/06/16 01:36; Start 12/06/16 at 01:36; Stop 12/06/16 at 03:22; Status DC Sodium Chloride 1,000 ml @ 1,000 mls/hr Q1H ONCE IV Last administered on 12/06 04:13; Start 12/06/16 at 03:53; Stop 12/06/16 at 04:52; Status DC Sodium Chloride 800 ml @ 1,000 mls/hr Q48M ONCE IV Last administered on 04:13; Start 12/06/16 at 03:53; Stop 12/06/16 at 04:41; Status DC Sodium Chloride (NS Flush) 2 ml UNSCH PRN IV FLUSH FLUSH AFTER USING IV ACCESS ; Start 12/06/16 at 04:45 Sodium Chloride (NS Flush) 2 ml BID IV FLUSH Last administered on 12/12/16 09 :24; Start 12/06/16 at 09:00 Naloxone HCl (Narcan Inj) 0.4 mg UNSCH PRN IV PUSH SEE LABEL COMMENTS; Start 12/06/16 at 04:45; Stop 12/06/16 at 09:14; Status DC Pharmacy Profile Note 0 ml @ 0 mls/hr UNSCH OTHER ; Start 12/06/16 at 04:45; Stop 12/11/16 at 14:40; Status DC Piperacillin Sod/ Tazobactam Sod 100 ml @ 200 mls/hr Q6H IV Last administered on 12/11/16 13:26; Start 12/06/16 at 08:00; Stop 12/11/16 at 14:39; Status DC Metoprolol Tartrate (Lopressor) 25 mg ONCE ONCE PO ; Start 12/06/16 at 06:30; Stop 12/06/16 at 06:45; Status DC Diltiazem HCl (Cardizem Inj) 15 mg ONCE ONCE IV Last administered on 06:55; Start 12/06/16 at 06:45; Stop 12/06/16 at 06:51; Status DC Diltiazem HCl (Cardizem Inj) 15 mg Q4H PRN IV HR>120 or BP >160/90 Last administered on 12/09/16 07:52; Start 12/06/16 at 06:45; Stop 12/09/16 at 19 :15; Status DC Diltiazem HCl (Cardizem Inj) 20 mg Q8H IV Last administered on 12/09/16 14:45 ; Start 12/06/16 at 14:00; Stop 12/09/16 at 19:15; Status DC Sodium Chloride 1,000 ml @ 100 mls/hr Q10H IV Last administered on 12/08/16 17:35; Start 12/06/16 at 08:02; Stop 12/08/16 at 21:26; Status DC Sodium Chloride (NS Flush) 2 ml UNSCH PRN IV FLUSH FLUSH AFTER USING IV ACCESS ; Start 12/06/16 at 08:15; Stop 12/06/16 at 09:14; Status DC Sodium Chloride (NS Flush) 2 ml BID IV FLUSH ; Start 12/06/16 at 09:00; Stop 12/06/16 at 09:14; Status DC Acetaminophen (Tylenol) 650 mg Q4H PRN PO TEMP > 100.4 Last administered on 14:56; Start 12/06/16 at 08:15 Ondansetron HCl (Zofran Inj) 4 mg Q6H PRN IVP NAUSEA OR VOMITING; Start at 08:15 Prochlorperazine (Compazine Supp) 25 mg Q12H PRN RECTAL NAUSEA OR VOMITING; Start 12/06/16 at 08:15; Stop 12/06/16 at 16:46; Status DC Acetaminophen (Tylenol) 650 mg Q6H PRN PO PAIN SCALE 1 TO 2; Start 12/06/16 at 08:15 Oxycodone/ Acetaminophen (Percocet 5-325 Mg) 1 tab Q6H PRN PO PAIN SCALE 3 TO 5; Start 12/06/16 at 08:15; Stop 12/06/16 at 16:46; Status DC Oxycodone/ Acetaminophen (Percocet 10-325 Mg) 1 tab Q6H PRN PO PAIN SCALE 6 TO 10 Last administered on 12/06/16 15:14; Start 12/06/16 at 08:15; Stop at 16:46; Status DC Morphine Sulfate (Morphine Inj) 2 mg Q3H PRN IV PUSH Pain 3-5; if unable to take PO Last administered on 12/06/16 09:35; Start 12/06/16 at 08:15; Stop 12/06/16 at 16:46; Status DC Morphine Sulfate (Morphine Inj) 4 mg Q3H PRN IV PUSH Pain 6-10;if unable to take PO Last administered on 12/06/16 16:27; Start 12/06/16 at 08:15; Stop 12/06/16 at 16:46; Status DC Naloxone HCl (Narcan Inj) 0.4 mg UNSCH PRN IV PUSH SEE LABEL COMMENTS; Start 12/06/16 at 08:15 Senna/Docusate Sodium (Shaylee-Colace) 1 tab BID PO Last administered on 20:22; Start 12/06/16 at 09:00 Magnesium Hydroxide (Milk Of Magnesia Liq) 30 ml Q12H PRN PO MILD - MODERATE CONSTIPATION; Start 12/06/16 at 08:15 Sennosides (Senokot) 17.2 mg Q12H PRN PO MODERATE - SEVERE CONSTIPATION; Start 12/06/16 at 08:15 Bisacodyl (Dulcolax Supp) 10 mg DAILY PRN RECTAL SEVERE CONSITIPATION; Start 12/06/16 at 08:15 Lactulose (Lactulose Liq) 30 ml DAILY PRN PO SEVERE CONSITIPATION; Start 12/06 at 08:15 Vancomycin HCl 1250 mg/Sodium Chloride 262.5 ml @ 250 mls/hr Q12H IV Last administered on 12/07/16 08:38; Start 12/06/16 at 12:00; Stop 12/07/16 at 15 :53; Status DC Miscellaneous Information SPECIFIC LAB TO BE DRAWN:VANCOMYCIN TROUGH DATE TO... ONCE ONCE .XX ; Start 12/07/16 at 11:45; Stop 12/07/16 at 11:45; Status DC Metoprolol Tartrate (Lopressor Inj) 5 mg Q6H PRN IV PUSH tachycardia Last administered on 12/09/16 15:11; Start 12/06/16 at 13:00; Stop 12/09/16 at 20 :11; Status DC Insulin Detemir (Levemir Inj) 30 units HS SQ Last administered on 12/11/16 21 :00; Start 12/06/16 at 21:00 Acetaminophen (Tylenol Supp) 650 mg Q6H PRN RECTAL FEVER; Start 12/06/16 at 13 :30; Status UNV Metoprolol Tartrate (Lopressor) 50 mg Q12HR PO Last administered on 12/12/16 09:25; Start 12/06/16 at 21:00 Acyclovir Sodium 600 mg/Sodium Chloride 100 ml @ 100 mls/hr Q8H IV Last administered on 12/11/16 16:45; Start 12/06/16 at 17:00; Stop 12/11/16 at 18 :00; Status DC Fluconazole/ Sodium Chloride 50 ml @ 50 mls/hr Q24H IV ; Start 12/06/16 at 16: 00; Stop 12/06/16 at 16:00; Status DC Acetaminophen (Tylenol Supp) 650 mg Q6H PRN RECTAL fevers; Start 12/06/16 at 14:45 Fluconazole/ Sodium Chloride 50 ml @ 50 mls/hr Q24H IV Last administered on 18:24; Start 12/06/16 at 18:00; Stop 12/08/16 at 15:35; Status DC Ampicillin Sodium 2000 mg/Sodium Chloride 100 ml @ 400 mls/hr Q4H IV ; Start 12/06/16 at 17:00; Stop 12/06/16 at 17:16; Status DC Sodium Chloride 1,000 ml @ 75 mls/hr [id number] IV Last administered on 04:20; Start 12/06/16 at 16:41; Stop 12/09/16 at 09:10; Status DC Baclofen (Lioresal) 10 mg Q8HR PRN PO MUSCLE SPASMS; Start 12/06/16 at 17:00; Stop 12/07/16 at 07:30; Status DC Citalopram Hydrobromide (CeleXA) 20 mg DAILY PO Last administered on 09:25; Start 12/07/16 at 09:00 Gabapentin (Neurontin) 800 mg TID PO Last administered on 12/12/16 09:25; Start 12/06/16 at 18:00 Hydroxyzine HCl (Atarax) 50 mg BID PRN PO ITCHING; Start 12/06/16 at 17:00 Oxybutynin Chloride (Ditropan) 5 mg Q12HR PRN PO URGENCY; Start 12/06/16 at 17 :00 Oxycodone/ Acetaminophen (Percocet 10-325 Mg) 1 tab Q6H PRN PO PAIN SCALE 3-10 Last administered on 12/07/16 04:27; Start 12/06/16 at 17:00; Stop 12/07/16 at 07:30; Status DC Leflunomide (Arava) 20 mg DAILY PO Last administered on 12/12/16 09:25; Start 12/07/16 at 09:00 Ampicillin Sodium 2000 mg/Sodium Chloride 100 ml @ 400 mls/hr Q4H IV Last administered on 12/07/16 13:40; Start 12/06/16 at 18:00; Stop 12/07/16 at 18 :21; Status DC Atropine Sulfate (Atropine Inj) 1 mg STK-MED ONCE .ROUTE ; Start 12/06/16 at 20 :46; Stop 12/06/16 at 20:47; Status DC Epinephrine HCl (EPINEPHrine (1:10,000) INJ) 1 mg STK-MED ONCE .ROUTE ; Start 12/06/16 at 20:46; Stop 12/06/16 at 20:47; Status DC Prednisone (Deltasone) 5 mg BID PO Last administered on 12/12/16 09:25; Start 12/07/16 at 09:00 Prednisone (Deltasone) 5 mg ONCE ONCE PO ; Start 12/06/16 at 23:15; Stop 01/12 at 23:16; Status DC Enoxaparin Sodium (Lovenox Inj) 40 mg Q24H SQ ; Start 12/07/16 at 09:00; Stop 12/07/16 at 09:00; Status DC Pantoprazole Sodium (Protonix) 40 mg DAILY PO Last administered on 12/12/16 09:24; Start 12/07/16 at 09:00 Baclofen (Lioresal) 5 mg BID PRN PO MUSCLE SPASMS; Start 12/07/16 at 07:30 Methylprednisolone Sodium Succinate (SoluMEDROL INJ) 1,000 mg Q24H IV ; Start 12/07/16 at 07:30; Stop 12/07/16 at 07:35; Status DC Methylprednisolone Sodium Succinate 1000 mg/Dextrose 116 ml @ 232 mls/hr Q24H IV Last administered on 12/11/16 08:38; Start 12/07/16 at 09:00; Stop 12/12 at 08:02; Status DC Miscellaneous (Pill Splitter) 1 ea UNSCH PRN OTHER SEE LABEL COMMENTS; Start 12/07/16 at 07:45 Dextrose (D50w (Vial) Inj) 50 ml UNSCH PRN IV PUSH HYPOGLYCEMIA-SEE COMMENTS; Start 12/07/16 at 11:30; Stop 12/09/16 at 19:17; Status DC Glucagon (Glucagon Inj) 1 mg UNSCH PRN OTHER HYPOGLYCEMIA-SEE COMMENTS; Start 12/07/16 at 11:30; Stop 12/10/16 at 07:17; Status DC Levetriacetam 100 ml @ 400 mls/hr Q12HR IV Last administered on 12/12/16 09: 24; Start 12/07/16 at 14:00 Vancomycin HCl 1250 mg/Sodium Chloride 262.5 ml @ 250 mls/hr Q12H IV Last administered on 12/07/16 20:21; Start 12/07/16 at 21:00; Stop 12/09/16 at 15 :24; Status DC Miscellaneous Information SPECIFIC LAB TO BE HALLE... ONCE ONCE .XX ; Start at 08:45; Stop 12/08/16 at 08:46; Status DC Dextrose (D50w (Vial) Inj) 50 ml UNSCH PRN IV PUSH HYPOGLYCEMIA-SEE COMMENTS; Start 12/07/16 at 18:15 Glucagon (Glucagon Inj) 1 mg UNSCH PRN OTHER HYPOGLYCEMIA-SEE COMMENTS; Start 12/07/16 at 18:15 Insulin Aspart (NovoLOG SUPPLEMENTAL SCALE) 1 ACHS SLIDING SCALE SQ Last administered on 12/10/16 21:00; Start 12/07/16 at 21:00 Sodium Chloride 1,000 ml @ 999 mls/hr BOLUS ONCE IV Last administered on 02:00; Start 12/08/16 at 02:00; Stop 12/08/16 at 03:00; Status DC Metronidazole 100 ml @ 100 mls/hr Q8H IV Last administered on 12/08/16 12:50 ; Start 12/08/16 at 05:00; Stop 12/08/16 at 15:35; Status DC Lactobacillus Acidophilus (Lactinex) 1 tab TID PO Last administered on 09:25; Start 12/08/16 at 09:00 Furosemide (Lasix Inj) 20 mg ONCE ONCE IV PUSH Last administered on 05:49; Start 12/08/16 at 05:30; Stop 12/08/16 at 05:40; Status DC Potassium Chloride 100 ml @ 50 mls/hr Q2H PRN IV For Potassium 2.8 - 3.2 mEq/ L Last administered on 12/12/16 09:50; Start 12/08/16 at 09:30 Potassium Chloride 100 ml @ 50 mls/hr Q2H PRN IV For Potassium 2.8 - 3.2 mEq/L ; Start 12/08/16 at 09:30 Potassium Bicarb/ Potassium Chloride (K-Lyte Cl Eff) 50 meq UNSCH PRN PO For Potassium 3.3 - 3.5 mEq/L; Start 12/08/16 at 09:30 Potassium Chloride 100 ml @ 25 mls/hr UNSCH PRN IV For Potassium 3.3 - 3.5 mEq /L Last administered on 12/11/16 06:15; Start 12/08/16 at 09:30 Potassium Chloride 100 ml @ 50 mls/hr Q2H PRN IV For Potassium 3.3 - 3.5 mEq/L ; Start 12/08/16 at 09:30 Magnesium Sulfate 4 gm/Sodium Chloride 100 ml @ 50 mls/hr UNSCH PRN IV For Magnesium 0.9 - 1.1 mg/dL; Start 12/08/16 at 09:30 Magnesium Oxide (Mag-Ox) 800 mg UNSCH PRN PO For Magnesium 1.2 - 1.6 mg/dL; Start 12/08/16 at 09:30 Magnesium Sulfate 2 gm/Sodium Chloride 100 ml @ 50 mls/hr UNSCH PRN IV For Magnesium 1.2 - 1.6 mg/dL; Start 12/08/16 at 09:30 Potassium Phosphate (K-Phos) 2,000 mg Q4H PRN PO For Phosphorus < 2.5 mg/dL; Start 12/08/16 at 09:30 Sodium Phosphate 30 mmol/Sodium Chloride 250 ml @ 42 mls/hr UNSCH PRN IV For Phosphorus < 2.5 mg/dL; Start 12/08/16 at 09:30 Potassium Phosphate (K-Phos) 2,000 mg UNSCH PRN PO/TUBE SEE LABEL COMMENTS; Start 12/08/16 at 09:30 Potassium Phosphate 30 mmol/ Sodium Chloride 260 ml @ 42 mls/hr UNSCH PRN IV SEE LABEL COMMENTS; Start 12/08/16 at 09:30 Calcium Gluconate 1 gm/Sodium Chloride 110 ml @ 110 mls/hr ONCE ONCE IV Last administered on 12/08/16 12:50; Start 12/08/16 at 12:00; Stop 12/08/16 at 12 :59; Status DC Fluconazole (Diflucan) 100 mg DAILY PO Last administered on 12/12/16 09:25; Start 12/09/16 at 09:00 Vancomycin HCl (VANCOMYCIN for oral use only) 125 mg QID PO Last administered on 12/12/16 09:24; Start 12/08/16 at 18:00 Sodium Chloride 1,000 ml @ 84 mls/hr [id number] IV Last administered on 22:20; Start 12/09/16 at 09:30 Hydralazine HCl (Apresoline Inj) 20 mg Q4H PRN IV PUSH SBP>170, DBP>90 Last administered on 12/09/16 12:05; Start 12/09/16 at 10:00; Stop 12/09/16 at 20 :11; Status DC Hydralazine HCl (Apresoline) 10 mg Q6HR PRN PO SBP>160, DBP>90 Last administered on 12/11/16 22:42; Start 12/09/16 at 10:00 Enalaprilat (Vasotec Inj) 2.5 mg Q6H PRN IV PUSH SBP>160, DBP>90 Last administered on 12/12/16 00:15; Start 12/09/16 at 09:15 Calcium Carbonate (Tums Chew) 500 mg Q12HR CHEW Last administered on 09:24; Start 12/09/16 at 09:15 Magnesium Oxide (Mag-Ox) 400 mg DAILY@1100 PO Last administered on 12/10/16 09:56; Start 12/09/16 at 11:00; Stop 12/12/16 at 10:59 Potassium Chloride (KCl) 20 meq DAILY PO Last administered on 12/12/16 09:25 ; Start 12/09/16 at 09:30; Stop 12/12/16 at 09:29; Status DC Vancomycin HCl 1250 mg/Sodium Chloride 262.5 ml @ 250 mls/hr Q12H IV Last administered on 12/11/16 04:25; Start 12/09/16 at 16:00; Stop 12/11/16 at 10 :30; Status DC Miscellaneous Information SPECIFIC LAB TO BE DRAWN:VANCO DATE TO... ONCE ONCE .XX Last administered on 12/11/16 03:45; Start 12/11/16 at 03:45; Stop at 03:46; Status DC Lorazepam (Ativan Inj) 2 mg STK-MED ONCE .ROUTE ; Start 12/09/16 at 16:08; Stop 12/09/16 at 16:09; Status DC Oxycodone/ Acetaminophen (Percocet 10-325 Mg) 1 tab TID PO Last administered on 12/12/16 09:25; Start 12/09/16 at 18:00 Lorazepam (Ativan Inj) 1 mg BID PRN IV AGITATION; Start 12/09/16 at 16:15 Clonidine (Catapres) 0.1 mg NOW ONCE PO Last administered on 12/09/16 19:15 ; Start 12/09/16 at 19:15; Stop 12/09/16 at 19:16; Status DC Flumazenil (Romazicon Inj) 0.5 mg STK-MED ONCE .ROUTE Last administered on 21:01; Start 12/09/16 at 21:01; Stop 12/09/16 at 21:02; Status DC Diltiazem HCl (Cardizem Inj) 20 mg Q8HR IV Last administered on 12/12/16 05: 57; Start 12/09/16 at 22:00 Hydralazine HCl (Apresoline Inj) 20 mg Q4H PRN IV PUSH SBP>160, DBP>90 Last administered on 12/12/16 01:15; Start 12/09/16 at 21:30 Sodium Chloride 250 ml @ 15 mls/hr ONCE ONCE IV Last administered on 02:30; Start 12/10/16 at 02:30; Stop 12/10/16 at 03:27; Status DC Iron Sucrose 100 mg/Sodium Chloride 105 ml @ 105 mls/hr DAILY IV Last administered on 12/12/16 10:04; Start 12/10/16 at 09:00; Stop 12/12/16 at 09 :59; Status DC Olanzapine (ZyPREXA) 5 mg Q12HR PO Last administered on 12/12/16 09:25; Start 12/10/16 at 14:45 Vancomycin HCl 1000 mg/Sodium Chloride 250 ml @ 250 mls/hr Q12H IV ; Start at 18:00; Stop 12/11/16 at 18:00; Status DC Miscellaneous Information SPECIFIC LAB TO BE DRAWN:VANCOMY... ONCE ONCE .XX ; Start 12/13/16 at 05:45; Stop 12/13/16 at 05:45; Status DC Ceftriaxone Sodium 2000 mg/ Sodium Chloride 100 ml @ 200 mls/hr Q24H IV Last administered on 12/11/16 16:45; Start 12/11/16 at 15:00 Acyclovir Sodium 600 mg/Sodium Chloride 100 ml @ 100 mls/hr Q8H IV Last administered on 12/12/16 09:24; Start 12/12/16 at 01:00 Gadodiamide (Omniscan Pf Inj) 17 ml STK-MED ONCE IV PUSH Last administered on 12/11/16 18:56; Start 12/11/16 at 18:56; Stop 12/11/16 at 18:57; Status DC Epinephrine HCl (EPINEPHrine (1:10,000) INJ) 2 mg STK-MED ONCE .ROUTE ; Start 12/11/16 at 19:39; Stop 12/11/16 at 19:40; Status DC Methylprednisolone Sodium Succinate 200 mg/Dextrose 103.2 ml @ 232 mls/hr Q24H IV Last administered on 12/12/16 10:04; Start 12/12/16 at 09:00 A/P Problem List: (1) Sepsis ICD Code: A41.9 - Sepsis, unspecified organism (2) Acute metabolic encephalopathy ICD Code: G93.41 - Metabolic encephalopathy (3) Cellulitis ICD Code: L03.90 - Cellulitis, unspecified Assessment and Plan A/P Sepsis, source likely BLE cellulitis. patient with RA on immunosuppressive Rx. Patient also with acute encephalopathy altered mental status on admission and concern of meningitis/encephalitis. LP was done and poss viral meningitis/ encephalitis. Also possible vasculitis per neuro , work up in progress. \ -repeated MRI brain stable. -continue IV Rocephin, Acyclovir- continue diflucan and po vanco. -on IV steroids. -Cont IVF -Neck soft tissue US no abscess -Blood cultures negative so far. -ID following. - Pt also has chronic on and off diarrhea C diff - hx of cdiff sepsis. Positive C diff this admission treat with vanco per ID Hypokalemia. Monitor and replace as need. Acute metabolic encephalopathy, poss due to sepsis- improving. Head CT reviewed and shows white matter hypodensity, due to artifact unknown if chronic repeated MRI brain stable. psych consult appreciated; started on Zyprexa neurology following. Seizure, started levetiracetam. EEG reviewed -Neuro checks -neurology following. Urinary retention- UA normal Abdominal CT reviewed and shows no acute disease -Cont barajas and strict I&Os Hypertension: continue cardizem- continue to monitor. Anemia , iron deficient. Started Venofer IV. Monitor H/H transfuse if HGB< 7 Chronic diarrhea, hx of c diff -C diff positive. DC'ed flagyl as might worsen encephalopathy, started vanco per ID RA, chronic -on Leflunomide and prednisone. Severe protein calorie malnutrition: low albumin. Consult loading unit tool setter. Will place NGT diabetes mellitus;continue with levemir and sliding scale coverage. DVT prophylaxis: SCDs Problem Qualifiers (1) Sepsis: Qualified Codes: A41.9 - Sepsis, unspecified organism Tamika Bonds MD Dec 12, 2016 10:44
[2016-12-12] MEDS: SODIUM CHLOR 0.45% 1000 ML INJ 1,000 ML IV SCH ×2 (11:33→19:55)
--- NOTE | 2016-12-12 14:54 | HHI.HCPN ---
Reason for visit a. To assist with evaluation and management of symptoms including: pain, decreased appetite, altered mental status. b. To assist medical decision maker(s) with: better understanding of current medical conditions; weighing benefits/burdens of medical treatment options; making medical treatment decisions. . Subjective/Interval History Patient seen and examined in ICU. Mother and daughter at bedside. Patient is awake and alert, communicating effectively. I was able to review with patient and family her hospital course and medical update and current treatment plan per neuro and ID. She seems to have a pretty good understanding, she verbalizes frustration with repeat infections. Explained my concern that given underlying autoimmune disease and steroid use this will continue due to overall immunocompromise. She is frustrated and wants to go home, though understands need to stay for continued treatment. She is laughing and smiling during visit reminiscing with her daughter. Reviewed that Dr. Torrez suspects viral encephalitis, thinks MS is unlikely. Plan to taper solumedrol. ID following for antibiotic recommendations. They understand patient is high risk for repeat infections, hospitalization and decline due to immunocompromise, functional and nutritional decline. Patient has long history of pain in her joints and neck due to RA and debility. She reports pain 6 10. She gets some relief with current PRN Oxycodone 10/325 TID. She understands rationale for limited narcotic use given recent confusion/ AMS. Her appetite is poor, had 1/2 can of Ensure this morning. She slept well last night. Denies shortness of breath, off oxygen. Saturations remain normal. Afebrile. Intermittent tachycardia. Vital signs stable. Potassium 2.9. today. 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 . Family/friend interactions See interval note. Advance Directives Living Will: Never completed Health Care Surrogate: Never completed Durable Power of Bi Specialist: Never completed Advance Directive Specifics Health Care Surrogate(s): Karolina, daughter: [phone] Jemima, mother: [phone] mini Tim: [phone] Significant change in goals: NO CODE. Continue aggressive care short of NO CODE (DNR/DNI). . Objective Vital Signs Date Time Temp Pulse Resp B/P (MAP) Pulse Ox O2 Delivery O2 Flow Rate FiO2 12/12/16 12:00 98.0 88 17 130/95 (107) 100 12/12/16 12:00 86 12/12/16 10:00 107 12/12/16 08:44 98 Nasal Cannula 2.00 12/12/16 08:00 97.5 102 20 155/67 (96) 99 12/12/16 08:00 102 12/12/16 06:00 107 12/12/16 04:00 98.4 109 24 158/76 (103) 98 12/12/16 04:00 109 12/12/16 02:00 85 12/12/16 02:00 138/65 (89) 12/12/16 00:00 98.4 87 19 178/87 (117) 100 12/12/16 00:00 85 12/11/16 22:00 85 12/11/16 20:00 98.1 91 20 175/84 (114) 97 12/11/16 20:00 91 12/11/16 18:00 102 12/11/16 16:00 94 12/11/16 16:00 98.6 100 24 153/71 (98) 94 Intake & Output 12/12/16 12/12/16 07:00 19:00 Intake Total 1000 ml 1508 ml Output Total 1900 ml Balance -900 ml 1508 ml IV Total 1000 ml 1508 ml Output Urine Total 1900 ml # Bowel Movements 0 Physical Exam CONSTITUTIONAL/GENERAL: This is a chronically ill appearing patient, moaning and crying in pain intermittently during my visit. TUBES/LINES/DRAINS: PIV right, [place]. SKIN: Ecchymoses on upper extremities. Bilateral LE redness and wound to left lateral LE with yellowish drainage. Skin temperature warm. CARDIOVASCULAR: regular rate and rhythm. RESPIRATORY/CHEST: Symmetric, unlabored respirations. Clear to auscultation. Diminished breath sounds bilaterally. GASTROINTESTINAL: Abdomen soft, non-tender, nondistended. No guarding. Bowel sounds present. GENITOURINARY: Without palpable bladder distension. Ocampo catheter in place. MUSCULOSKELETAL: Extremities with erythema and edema. NEUROLOGICAL: Awakens briefly, answers some questions, falls off to sleep. PSYCHIATRIC: Intermittently moaning and restless. . Diagnostic Tests Laboratory Laboratory Tests Test 12/10/16 02:00 12/10/16 02:40 12/10/16 05:07 12/10/16 21:20 Blood Gas Puncture Site RT RADIAL Blood Gas Patient Temperature 98.6 Blood Gas HCO3 19 mmol/L (22-26) Blood Gas Base Excess -4.9 mmol/L (-2-2) Blood Gas Oxygen Saturation 93 % (90-100) Arterial Blood pH 7.40 (7.380-7.420) Arterial Blood Partial Pressure CO2 31 mmHg (38-42) Arterial Blood Partial Pressure O2 79 mmHg (61-120) Arterial Blood Oxygen Content 7.7 Vol % (12.0-20.0) Arterial Blood Carboxyhemoglobin 1.4 % (0-4) Arterial Blood Methemoglobin 1.1 % (0-2) Blood Gas Hemoglobin 5.7 G/DL (12.0-16.0) Oxygen Delivery Device NASAL CANNULA Blood Gas Liter Flow 2 L/M White Blood Count 5.3 TH/MM3 (4.0-11.0) Red Blood Count 3.43 MIL/MM3 (4.00-5.30) Hemoglobin 8.3 GM/DL (11.6-15.3) Hematocrit 26.2 % (35.0-46.0) Mean Corpuscular Volume 76.4 FL (80.0-100.0) Mean Corpuscular Hemoglobin 24.2 PG (27.0-34.0) Mean Corpuscular Hemoglobin Concent 31.6 % (32.0-36.0) Red Cell Distribution Width 17.7 % (11.6-17.2) Platelet Count 223 TH/MM3 (150-450) Mean Platelet Volume 7.6 FL (7.0-11.0) Neutrophils (%) (Auto) 95.1 % (16.0-70.0) Lymphocytes (%) (Auto) 2.0 % (9.0-44.0) Monocytes (%) (Auto) 2.5 % (0.0-8.0) Eosinophils (%) (Auto) 0.0 % (0.0-4.0) Basophils (%) (Auto) 0.4 % (0.0-2.0) Neutrophils # (Auto) 5.0 TH/MM3 (1.8-7.7) Lymphocytes # (Auto) 0.1 TH/MM3 (1.0-4.8) Monocytes # (Auto) 0.1 TH/MM3 (0-0.9) Eosinophils # (Auto) 0.0 TH/MM3 (0-0.4) Basophils # (Auto) 0.0 TH/MM3 (0-0.2) CBC Comment DIFF FINAL Differential Comment Blood Urea Nitrogen 18 MG/DL (7-18) Creatinine 0.37 MG/DL (0.50-1.00) Random Glucose 186 MG/DL (74-106) Total Protein 4.9 GM/DL (6.4-8.2) Calcium Level 7.3 MG/DL (8.5-10.1) Magnesium Level 1.8 MG/DL (1.5-2.5) Sodium Level 145 MEQ/L (136-145) Potassium Level 3.2 MEQ/L (3.5-5.1) 3.8 MEQ/L (3.5-5.1) Chloride Level 115 MEQ/L (98-107) Carbon Dioxide Level 20.6 MEQ/L (21.0-32.0) Anion Gap 9 MEQ/L (5-15) Estimat Glomerular Filtration Rate 187 ML/MIN (>89) Protein Corrected Calcium 8.5 MG/DL (8.5-10.1) Ammonia 38 MCMOL/L (11-32) Prealbumin 15 MG/DL (20-40) Test 12/11/16 03:38 12/11/16 21:13 12/12/16 09:00 White Blood Count 4.2 TH/MM3 (4.0-11.0) Red Blood Count 3.34 MIL/MM3 (4.00-5.30) Hemoglobin 8.2 GM/DL (11.6-15.3) Hematocrit 25.4 % (35.0-46.0) Mean Corpuscular Volume 76.0 FL (80.0-100.0) Mean Corpuscular Hemoglobin 24.5 PG (27.0-34.0) Mean Corpuscular Hemoglobin Concent 32.2 % (32.0-36.0) Red Cell Distribution Width 17.3 % (11.6-17.2) Platelet Count 201 TH/MM3 (150-450) Mean Platelet Volume 7.5 FL (7.0-11.0) Neutrophils (%) (Auto) 92.0 % (16.0-70.0) Lymphocytes (%) (Auto) 2.4 % (9.0-44.0) Monocytes (%) (Auto) 5.4 % (0.0-8.0) Eosinophils (%) (Auto) 0.1 % (0.0-4.0) Basophils (%) (Auto) 0.1 % (0.0-2.0) Neutrophils # (Auto) 3.9 TH/MM3 (1.8-7.7) Lymphocytes # (Auto) 0.1 TH/MM3 (1.0-4.8) Monocytes # (Auto) 0.2 TH/MM3 (0-0.9) Eosinophils # (Auto) 0.0 TH/MM3 (0-0.4) Basophils # (Auto) 0.0 TH/MM3 (0-0.2) CBC Comment DIFF FINAL Differential Comment Blood Urea Nitrogen 18 MG/DL (7-18) Creatinine 0.42 MG/DL (0.50-1.00) Random Glucose 125 MG/DL (74-106) Calcium Level 7.5 MG/DL (8.5-10.1) Magnesium Level 2.1 MG/DL (1.5-2.5) Sodium Level 146 MEQ/L (136-145) Potassium Level 3.3 MEQ/L (3.5-5.1) 3.1 MEQ/L (3.5-5.1) 2.9 MEQ/L (3.5-5.1) Chloride Level 117 MEQ/L (98-107) Carbon Dioxide Level 23.5 MEQ/L (21.0-32.0) Anion Gap 6 MEQ/L (5-15) Estimat Glomerular Filtration Rate 162 ML/MIN (>89) Ammonia 37 MCMOL/L (11-32) Vancomycin Level Trough 20.8 MCG/ML (5.0-10.0) Result Diagram: 12/11/16 0338 12/12/16 0900 Microbiology Microbiology Date/Time Source Procedure Growth Status 12/06/16 02:00 Blood Peripheral Aerobic Blood Culture - Final NO GROWTH IN 5 DAYS Complete 12/06/16 02:00 Blood Peripheral Anaerobic Blood Culture - Final NO GROWTH IN 5 DAYS Complete 12/06/16 15:52 Cerebral Spinal Fluid Lumbar Puncture Fungal Smear - Final NO FUNGAL ELEMENTS SEEN. Resulted 12/06/16 15:52 Cerebral Spinal Fluid Lumbar Puncture Fungal Culture Pending Resulted 12/06/16 06:20 Wound Leg Gram Stain - Final Complete 12/06/16 06:20 Wound Culture - Final Serratia Marcescens Morganella Morganii Complete Imaging Last Impressions Brain MRI 12/11/16 0000 Signed Impressions: Service Date/Time: Sunday, December 11, 2016 18:08 - CONCLUSION: Stable MRI of the brain. Nonspecific white matter diffuse symmetrical bilateral changes. 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 Caleb Najera MD Head CT 12/10/16 0000 Signed Impressions: Service Date/Time: Saturday, December 10, 2016 02:28 - CONCLUSION: 1. No acute abnormality is seen. 2. White matter demyelination. 3. Small focal area of encephalomalacia at the left cerebellar hemisphere. Marcus Chahal MD Chest X-Ray 12/08/16 0000 Signed Impressions: Service Date/Time: Thursday, December 08, 2016 01:26 - CONCLUSION: 1. Left central line in superior vena cava without pneumothorax. Baljeet Yap MD Neck Ultrasound 12/06/16 0000 Signed Impressions: Service Date/Time: Tuesday, December 06, 2016 08:06 - CONCLUSION: No abscess observed. Ultrasound evaluation for an abscess in this area is very difficult and an abscess can easily be occult by ultrasound evaluation. CT or MRI is more sensitive. Mukul Gary Jr., MD Lumbar Puncture Fluoroscopy 12/06/16 0000 Signed Impressions: Service Date/Time: Tuesday, December 06, 2016 15:52 - CONCLUSION: Uncomplicated fluoroscopically guided lumbar puncture with pressures as above. Rg Paz MD Head/Brain Mag Res Venography 12/06/16 0000 Signed Impressions: Service Date/Time: Tuesday, December 06, 2016 21:13 - CONCLUSION: Limited study. Grossly unremarkable exam. Kenroy Luong MD Head Magnetic Resonance Angiography 12/06/16 0000 Signed Impressions: Service Date/Time: Tuesday, December 06, 2016 21:13 - CONCLUSION: Normal examination for a patient of this age. Kenroy Luong MD Hand X-Ray 12/06/16 0000 Signed Impressions: Service Date/Time: Tuesday, December 06, 2016 20:04 - CONCLUSION: Extensive arthritis throughout the hand and wrist. Kenroy Luong MD Cervical Spine MRI 12/06/16 0000 Signed Impressions: Service Date/Time: Tuesday, December 06, 2016 21:13 - CONCLUSION: Extremely limited MRI of the cervical spine. Kenroy Luong MD Abdomen/Pelvis CT 12/06/16 0000 Signed Impressions: Service Date/Time: Tuesday, December 06, 2016 03:21 - CONCLUSION: No definite acute CT findings in the abdomen or pelvis. Marcus Buchanan MD Procedures * 12/06/16 - lumbar puncture . Assessment and Plan Disease Oriented Problem List: (1) Sepsis (2) Acute metabolic encephalopathy Symptom Scale: (1) Pain 0-10 Scale: 6 (2) Altered mental status 0-10 Scale: Unable to quantify Comment: Improving. (3) Decreased appetite 0-10 Scale: Unable to quantify Comment: Albumin 1.6. Eating small amounts. Pertinent Non-Medical Issues Psychosocial: Supported by her daughter, mini and parents. Spiritual: Unknown. Legal: Patient mental status improving, recommend shared decision making. No known written advanced directives, it has been discussed in the past but nothing was ever signed. According to [place] Statutes, health care medical proxy decision maker falls to majority of adult children. Patient has 1 daughter Karolina, who is willing to serve as health care proxy decision maker. She is supported by Ms. Harris's mother, father, and fiance. Ethical issues impacting care: No known concerns at this time. . Important Contacts Karolina, daughter/HCP: [phone] mini Tim: [phone] Prognosis Ms. Harris is an unfortunate 46 year old with chronic medical comorbidities including RA (chronic steroids), diabetes, etc admitted with altered mental status and sepsis. While she may survive this hospitalization she remains high risk for further decline, repeat infections/ hospitalizations. Code Status: No Code Plan * Decision Maker: Patient mental status improving, recommend shared decision making. No known written advanced directives, it has been discussed in the past but nothing was ever signed. According to [place] Statutes, health care medical proxy decision maker falls to majority of adult children. Patient has 1 daughter Karolina, who is willing to serve as health care proxy decision maker. She is supported by Ms. Harris's mother, father, and fiance. * NO CODE * Patient/ Family desires continued aggressive care short of NO CODE. Will attempt to complete advanced directives with patient in coming visits, now that mental status is improving. * SYMPTOMS: Pain: in neck, back and extremities secondary to chronic debility, diabetes, RA, bed/chair bound status, tubes. Currently on Oxycodone 10/325mg PO TID for pain control with some relief. Plan to continue current meds as patient is more clear. Decreased appetite: ongoing nutritional decline. Will monitor now that mental status is improving. Altered mental status: possibly due to medication, infections (viral encephalitis, leg wound, cellulitis and C. Diff). * Palliative care will continue to follow throughout hospital course to assist with symptom management and clarification of goals as needed. Attestation To help prompt me to consider important information that might be impacting today's encounter and assessment, information from prior notes written by myself or my colleagues may have been "brought forward" into today's note. My signature on this note, however, is an attestation that I personally performed the exam, history, and/or decision-making noted today, and, unless otherwise indicated, the interactions with patient, family, and staff as well as the review of records all occurred today. I also attest that the listed assessment and stated plan reflect my best clinical judgment today based on the combination of historical information, prior notes, and today's exam/ interactions. When time spent is documented, it refers only to time spent today by the signer, or if indicated, combined time spent today by collaborating physician/nurse practitioner. Rebecca Ortez Dec 12, 2016 14:54
[2016-12-12] MEDS: cefTRIAXone INJ 2,000 MG in SODIUM CHLORIDE 0.9% INJ 100 ML IV SCH (15:32)
[2016-12-12] MEDS ORDERED: ALTEPLASE RECOMBINANT 2 MG VIAL IV FLUSH ONE (17:15)
[2016-12-12] MEDS ORDERED: ALTEPLASE RECOMBINANT 2 MG VIAL IV FLUSH PRN (17:15)
[2016-12-12] MEDS: INSULIN DETEMIR 100 UNITS/ML VIAL SQ SCH (19:56)
[2016-12-13] VITALS (13 sets, daily range): BP systolic 141–179; BP diastolic 65–82; PULSE 64–110; RESP 12–24; TEMP 97.4–98.4; O2SAT 92–100
[2016-12-13] MEDS: ACYCLOVIR INJ 600 MG in SODIUM CHLORIDE 0.9% INJ 100 ML IV SCH ×3 (00:25→17:56)
[2016-12-13] MEDS: hydrALAZINE HCL 20 MG/ML VIAL IV PUSH PRN ×5 (00:25→17:56)
[2016-12-13 04:12] LABS: AUTOMATED NEUTROPHIL # 4.7 TH/MM3 (1.8-7.7); BASOPHIL % 0.2 % (0.0-2.0); HEMATOCRIT 27.7 % (35.0-46.0); HEMO FLAGS DIFF FINAL; LYMPH % 2.5 % (9.0-44.0); LYMPHOCYTE # 0.1 TH/MM3 (1.0-4.8); MEAN CELL VOLUME 76.3 FL (80.0-100.0); MEAN CORPUSCULAR HEMOGLOBIN 23.8 PG (27.0-34.0); MEAN CORPUSCULAR HGB CONC 31.3 % (32.0-36.0); MONO % 6.1 % (0.0-8.0); NEUT % 91.2 % (16.0-70.0); PLATELET COUNT 215 TH/MM3 (150-450); RED BLOOD COUNT 3.64 MIL/MM3 (4.00-5.30); WHITE BLOOD COUNT 5.1 TH/MM3 (4.0-11.0)
[2016-12-13 04:24] LABS: POTASSIUM 3.9 MEQ/L (3.5-5.1)
[2016-12-13 04:41] LABS: CALCIUM-PROTEIN CORRECTED 8.8 MG/DL (8.5-10.1)
[2016-12-13] MEDS: DILTIAZEM HCL 25 MG/5 ML VIAL IV SCH ×2 (05:00→06:37)
[2016-12-13] MEDS ORDERED: PHARMACY ORDERED LAB ONE (05:45)
[2016-12-13] MEDS: INSULIN ASPART SUPPLEMENTAL SCALE SQ SCH ×4 (08:00→20:46)
[2016-12-13] MEDS: DOCUSATE SODIUM 50 MG/SENNA 8.6 MG TAB PO SCH ×2 (09:00→21:00)
--- NOTE | 2016-12-13 10:02 | HHI.PR ---
Subjective Remarks in no acute distress. denies pain. afebrile. blood sugar and BP trend noted. d/w the RN. Objective Vitals Vital Signs Date Time Temp Pulse Resp B/P (MAP) Pulse Ox O2 Delivery O2 Flow Rate FiO2 12/13/16 08:57 98 21 12/13/16 06:00 64 12/13/16 04:00 97.5 72 15 150/73 (98) 100 12/13/16 04:00 72 12/13/16 02:00 66 12/13/16 00:00 76 12/13/16 00:00 97.4 76 12 162/79 (106) 99 12/12/16 22:00 76 12/12/16 21:39 98 21 12/12/16 20:00 97.5 84 13 172/79 (110) 97 12/12/16 20:00 84 12/12/16 18:00 84 12/12/16 16:00 71 12/12/16 16:00 97.5 71 13 139/73 (95) 98 12/12/16 14:00 84 12/12/16 12:00 98.0 88 17 130/95 (107) 100 12/12/16 12:00 86 12/12/16 10:00 107 I/O 12/12/16 12/12/16 12/12/16 12/13/16 12/13/16 12/13/16 06:59 14:59 22:59 06:59 14:59 22:59 Intake Total 1508 ml 1440 ml 940 ml Output Total 1900 ml 1600 ml 400 ml Balance -1900 ml 1508 ml -160 ml 540 ml Intake Oral 1240 ml IV Total 1508 ml 200 ml 940 ml Output Urine Total 1900 ml 1400 ml 300 ml Stool Total 200 ml 100 ml # Bowel Movements 0 Result Diagram: 12/13/16 0349 12/13/16 0349 Imaging Last Impressions Brain MRI 12/11/16 0000 Signed Impressions: Service Date/Time: Sunday, December 11, 2016 18:08 - CONCLUSION: Stable MRI of the brain. Nonspecific white matter diffuse symmetrical bilateral changes. 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 Caleb Najera MD Head CT 12/10/16 0000 Signed Impressions: Service Date/Time: Saturday, December 10, 2016 02:28 - CONCLUSION: 1. No acute abnormality is seen. 2. White matter demyelination. 3. Small focal area of encephalomalacia at the left cerebellar hemisphere. Marcus Chaahl MD Chest X-Ray 12/08/16 Signed Impressions: Service Date/Time: Thursday, December 08, 2016 01:26 - CONCLUSION: 1. Left central line in superior vena cava without pneumothorax. Baljeet Yap MD Neck Ultrasound 12/06/16 Signed Impressions: Service Date/Time: Tuesday, December 06, 2016 08:06 - CONCLUSION: No abscess observed. Ultrasound evaluation for an abscess in this area is very difficult and an abscess can easily be occult by ultrasound evaluation. CT or MRI is more sensitive. Mukul Gary Jr., MD Lumbar Puncture Fluoroscopy 12/06/16 Signed Impressions: Service Date/Time: Tuesday, December 06, 2016 15:52 - CONCLUSION: Uncomplicated fluoroscopically guided lumbar puncture with pressures as above. Rg Paz MD Head/Brain Mag Res Venography 12/06/16 Signed Impressions: Service Date/Time: Tuesday, December 06, 2016 21:13 - CONCLUSION: Limited study. Grossly unremarkable exam. Kenroy Luong MD Head Magnetic Resonance Angiography 12/06/16 Signed Impressions: Service Date/Time: Tuesday, December 06, 2016 21:13 - CONCLUSION: Normal examination for a patient of this age. Kenroy Luong MD Hand X-Ray 12/06/16 Signed Impressions: Service Date/Time: Tuesday, December 06, 2016 20:04 - CONCLUSION: Extensive arthritis throughout the hand and wrist. Kenroy Luong MD Cervical Spine MRI 12/06/16 Signed Impressions: Service Date/Time: Tuesday, December 06, 2016 21:13 - CONCLUSION: Extremely limited MRI of the cervical spine. Kenroy Luong MD Abdomen/Pelvis CT 12/06/16 Signed Impressions: Service Date/Time: Tuesday, December 06, 2016 03:21 - CONCLUSION: No definite acute CT findings in the abdomen or pelvis. Marcus Buchanan MD Objective Remarks GENERAL: This is a well-nourished, well-developed patient, in no apparent distress. CARDIOVASCULAR: Regular rate and regular rhythm without murmurs, gallops, or rubs. RESPIRATORY: Clear to auscultation. Breath sounds equal bilaterally. No wheezes , rales, or rhonchi. GASTROINTESTINAL: Abdomen soft, non-tender, nondistended. Normal, active bowel sounds MUSCULOSKELETAL: Extremities without clubbing, cyanosis, or edema. NEURO: awake and alert. Procedures central line placement. Medications and IVs Current Medications Sodium Chloride 1,000 ml @ 1,000 mls/hr Q1H ONCE IV Last administered on 12/06 02:15; Start 12/06/16 at 02:00; Stop 12/06/16 at 02:59; Status DC Acetaminophen (Tylenol Supp) 650 mg ONCE ONCE RECTAL Last administered on 02:49; Start 12/06/16 at 02:00; Stop 12/06/16 at 02:03; Status DC Piperacillin Sod/ Tazobactam Sod 50 ml @ 100 mls/hr ONCE ONCE IV Last administered on 12/06/16 02:49; Start 12/06/16 at 02:00; Stop 12/06/16 at 02 :29; Status DC Vancomycin HCl 1000 mg/Sodium Chloride 250 ml @ 250 mls/hr ONCE ONCE IV Last administered on 12/06/16 02:58; Start 12/06/16 at 02:00; Stop 12/06/16 at 02 :59; Status DC Lorazepam (Ativan Inj) 1 mg ONCE ONCE IV PUSH Last administered on 12/06/16 03:09; Start 12/06/16 at 03:15; Stop 12/06/16 at 03:16; Status DC Iohexol (Omnipaque 350 Inj) 80 ml STK-MED ONCE IVCONTRAST Last administered on 12/06/16 01:36; Start 12/06/16 at 01:36; Stop 12/06/16 at 03:22; Status DC Sodium Chloride 1,000 ml @ 1,000 mls/hr Q1H ONCE IV Last administered on 12/06 04:13; Start 12/06/16 at 03:53; Stop 12/06/16 at 04:52; Status DC Sodium Chloride 800 ml @ 1,000 mls/hr Q48M ONCE IV Last administered on 04:13; Start 12/06/16 at 03:53; Stop 12/06/16 at 04:41; Status DC Sodium Chloride (NS Flush) 2 ml UNSCH PRN IV FLUSH FLUSH AFTER USING IV ACCESS ; Start 12/06/16 at 04:45 Sodium Chloride (NS Flush) 2 ml BID IV FLUSH Last administered on 12/12/16 19 :57; Start 12/06/16 at 09:00 Naloxone HCl (Narcan Inj) 0.4 mg UNSCH PRN IV PUSH SEE LABEL COMMENTS; Start 12/06/16 at 04:45; Stop 12/06/16 at 09:14; Status DC Pharmacy Profile Note 0 ml @ 0 mls/hr UNSCH OTHER ; Start 12/06/16 at 04:45; Stop 12/11/16 at 14:40; Status DC Piperacillin Sod/ Tazobactam Sod 100 ml @ 200 mls/hr Q6H IV Last administered on 12/11/16 13:26; Start 12/06/16 at 08:00; Stop 12/11/16 at 14:39; Status DC Metoprolol Tartrate (Lopressor) 25 mg ONCE ONCE PO ; Start 12/06/16 at 06:30; Stop 12/06/16 at 06:45; Status DC Diltiazem HCl (Cardizem Inj) 15 mg ONCE ONCE IV Last administered on 06:55; Start 12/06/16 at 06:45; Stop 12/06/16 at 06:51; Status DC Diltiazem HCl (Cardizem Inj) 15 mg Q4H PRN IV HR>120 or BP >160/90 Last administered on 12/09/16 07:52; Start 12/06/16 at 06:45; Stop 12/09/16 at 19 :15; Status DC Diltiazem HCl (Cardizem Inj) 20 mg Q8H IV Last administered on 12/09/16 14:45 ; Start 12/06/16 at 14:00; Stop 12/09/16 at 19:15; Status DC Sodium Chloride 1,000 ml @ 100 mls/hr Q10H IV Last administered on 12/08/16 17:35; Start 12/06/16 at 08:02; Stop 12/08/16 at 21:26; Status DC Sodium Chloride (NS Flush) 2 ml UNSCH PRN IV FLUSH FLUSH AFTER USING IV ACCESS ; Start 12/06/16 at 08:15; Stop 12/06/16 at 09:14; Status DC Sodium Chloride (NS Flush) 2 ml BID IV FLUSH ; Start 12/06/16 at 09:00; Stop 12/06/16 at 09:14; Status DC Acetaminophen (Tylenol) 650 mg Q4H PRN PO TEMP > 100.4 Last administered on 14:56; Start 12/06/16 at 08:15 Ondansetron HCl (Zofran Inj) 4 mg Q6H PRN IVP NAUSEA OR VOMITING; Start at 08:15 Prochlorperazine (Compazine Supp) 25 mg Q12H PRN RECTAL NAUSEA OR VOMITING; Start 12/06/16 at 08:15; Stop 12/06/16 at 16:46; Status DC Acetaminophen (Tylenol) 650 mg Q6H PRN PO PAIN SCALE 1 TO 2; Start 12/06/16 at 08:15 Oxycodone/ Acetaminophen (Percocet 5-325 Mg) 1 tab Q6H PRN PO PAIN SCALE 3 TO 5; Start 12/06/16 at 08:15; Stop 12/06/16 at 16:46; Status DC Oxycodone/ Acetaminophen (Percocet 10-325 Mg) 1 tab Q6H PRN PO PAIN SCALE 6 TO 10 Last administered on 12/06/16 15:14; Start 12/06/16 at 08:15; Stop at 16:46; Status DC Morphine Sulfate (Morphine Inj) 2 mg Q3H PRN IV PUSH Pain 3-5; if unable to take PO Last administered on 12/06/16 09:35; Start 12/06/16 at 08:15; Stop 12/06/16 at 16:46; Status DC Morphine Sulfate (Morphine Inj) 4 mg Q3H PRN IV PUSH Pain 6-10;if unable to take PO Last administered on 12/06/16 16:27; Start 12/06/16 at 08:15; Stop 12/06/16 at 16:46; Status DC Naloxone HCl (Narcan Inj) 0.4 mg UNSCH PRN IV PUSH SEE LABEL COMMENTS; Start 12/06/16 at 08:15 Senna/Docusate Sodium (Shaylee-Colace) 1 tab BID PO Last administered on 20:22; Start 12/06/16 at 09:00 Magnesium Hydroxide (Milk Of Magnesia Liq) 30 ml Q12H PRN PO MILD - MODERATE CONSTIPATION; Start 12/06/16 at 08:15 Sennosides (Senokot) 17.2 mg Q12H PRN PO MODERATE - SEVERE CONSTIPATION; Start 12/06/16 at 08:15 Bisacodyl (Dulcolax Supp) 10 mg DAILY PRN RECTAL SEVERE CONSITIPATION; Start 12/06/16 at 08:15 Lactulose (Lactulose Liq) 30 ml DAILY PRN PO SEVERE CONSITIPATION; Start 12/06 at 08:15 Vancomycin HCl 1250 mg/Sodium Chloride 262.5 ml @ 250 mls/hr Q12H IV Last administered on 12/07/16 08:38; Start 12/06/16 at 12:00; Stop 12/07/16 at 15 :53; Status DC Miscellaneous Information SPECIFIC LAB TO BE DRAWN:VANCOMYCIN TROUGH DATE TO... ONCE ONCE .XX ; Start 12/07/16 at 11:45; Stop 12/07/16 at 11:45; Status DC Metoprolol Tartrate (Lopressor Inj) 5 mg Q6H PRN IV PUSH tachycardia Last administered on 12/09/16 15:11; Start 12/06/16 at 13:00; Stop 12/09/16 at 20 :11; Status DC Insulin Detemir (Levemir Inj) 30 units HS SQ Last administered on 12/12/16 19 :56; Start 12/06/16 at 21:00 Acetaminophen (Tylenol Supp) 650 mg Q6H PRN RECTAL FEVER; Start 12/06/16 at 13 :30; Status UNV Metoprolol Tartrate (Lopressor) 50 mg Q12HR PO Last administered on 12/12/16 19:56; Start 12/06/16 at 21:00 Acyclovir Sodium 600 mg/Sodium Chloride 100 ml @ 100 mls/hr Q8H IV Last administered on 12/11/16 16:45; Start 12/06/16 at 17:00; Stop 12/11/16 at 18 :00; Status DC Fluconazole/ Sodium Chloride 50 ml @ 50 mls/hr Q24H IV ; Start 12/06/16 at 16: 00; Stop 12/06/16 at 16:00; Status DC Acetaminophen (Tylenol Supp) 650 mg Q6H PRN RECTAL fevers; Start 12/06/16 at 14:45 Fluconazole/ Sodium Chloride 50 ml @ 50 mls/hr Q24H IV Last administered on 18:24; Start 12/06/16 at 18:00; Stop 12/08/16 at 15:35; Status DC Ampicillin Sodium 2000 mg/Sodium Chloride 100 ml @ 400 mls/hr Q4H IV ; Start 12/06/16 at 17:00; Stop 12/06/16 at 17:16; Status DC Sodium Chloride 1,000 ml @ 75 mls/hr [id number] IV Last administered on 04:20; Start 12/06/16 at 16:41; Stop 12/09/16 at 09:10; Status DC Baclofen (Lioresal) 10 mg Q8HR PRN PO MUSCLE SPASMS; Start 12/06/16 at 17:00; Stop 12/07/16 at 07:30; Status DC Citalopram Hydrobromide (CeleXA) 20 mg DAILY PO Last administered on 09:25; Start 12/07/16 at 09:00 Gabapentin (Neurontin) 800 mg TID PO Last administered on 12/12/16 18:26; Start 12/06/16 at 18:00 Hydroxyzine HCl (Atarax) 50 mg BID PRN PO ITCHING; Start 12/06/16 at 17:00 Oxybutynin Chloride (Ditropan) 5 mg Q12HR PRN PO URGENCY; Start 12/06/16 at 17 :00 Oxycodone/ Acetaminophen (Percocet 10-325 Mg) 1 tab Q6H PRN PO PAIN SCALE 3-10 Last administered on 12/07/16 04:27; Start 12/06/16 at 17:00; Stop 12/07/16 at 07:30; Status DC Leflunomide (Arava) 20 mg DAILY PO Last administered on 12/12/16 09:25; Start 12/07/16 at 09:00 Ampicillin Sodium 2000 mg/Sodium Chloride 100 ml @ 400 mls/hr Q4H IV Last administered on 12/07/16 13:40; Start 12/06/16 at 18:00; Stop 12/07/16 at 18 :21; Status DC Atropine Sulfate (Atropine Inj) 1 mg STK-MED ONCE .ROUTE ; Start 12/06/16 at 20 :46; Stop 12/06/16 at 20:47; Status DC Epinephrine HCl (EPINEPHrine (1:10,000) INJ) 1 mg STK-MED ONCE .ROUTE ; Start 12/06/16 at 20:46; Stop 12/06/16 at 20:47; Status DC Prednisone (Deltasone) 5 mg BID PO Last administered on 12/12/16 19:56; Start 12/07/16 at 09:00 Prednisone (Deltasone) 5 mg ONCE ONCE PO ; Start 12/06/16 at 23:15; Stop 01/12 at 23:16; Status DC Enoxaparin Sodium (Lovenox Inj) 40 mg Q24H SQ ; Start 12/07/16 at 09:00; Stop 12/07/16 at 09:00; Status DC Pantoprazole Sodium (Protonix) 40 mg DAILY PO Last administered on 12/12/16 09:24; Start 12/07/16 at 09:00 Baclofen (Lioresal) 5 mg BID PRN PO MUSCLE SPASMS; Start 12/07/16 at 07:30 Methylprednisolone Sodium Succinate (SoluMEDROL INJ) 1,000 mg Q24H IV ; Start 12/07/16 at 07:30; Stop 12/07/16 at 07:35; Status DC Methylprednisolone Sodium Succinate 1000 mg/Dextrose 116 ml @ 232 mls/hr Q24H IV Last administered on 12/11/16 08:38; Start 12/07/16 at 09:00; Stop 12/12 at 08:02; Status DC Miscellaneous (Pill Splitter) 1 ea UNSCH PRN OTHER SEE LABEL COMMENTS; Start 12/07/16 at 07:45 Dextrose (D50w (Vial) Inj) 50 ml UNSCH PRN IV PUSH HYPOGLYCEMIA-SEE COMMENTS; Start 12/07/16 at 11:30; Stop 12/09/16 at 19:17; Status DC Glucagon (Glucagon Inj) 1 mg UNSCH PRN OTHER HYPOGLYCEMIA-SEE COMMENTS; Start 12/07/16 at 11:30; Stop 12/10/16 at 07:17; Status DC Levetriacetam 100 ml @ 400 mls/hr Q12HR IV Last administered on 12/12/16 19: 57; Start 12/07/16 at 14:00 Vancomycin HCl 1250 mg/Sodium Chloride 262.5 ml @ 250 mls/hr Q12H IV Last administered on 12/07/16 20:21; Start 12/07/16 at 21:00; Stop 12/09/16 at 15 :24; Status DC Miscellaneous Information SPECIFIC LAB TO BE HALLE... ONCE ONCE .XX ; Start at 08:45; Stop 12/08/16 at 08:46; Status DC Dextrose (D50w (Vial) Inj) 50 ml UNSCH PRN IV PUSH HYPOGLYCEMIA-SEE COMMENTS; Start 12/07/16 at 18:15 Glucagon (Glucagon Inj) 1 mg UNSCH PRN OTHER HYPOGLYCEMIA-SEE COMMENTS; Start 12/07/16 at 18:15 Insulin Aspart (NovoLOG SUPPLEMENTAL SCALE) 1 ACHS SLIDING SCALE SQ Last administered on 12/12/16 20:44; Start 12/07/16 at 21:00 Sodium Chloride 1,000 ml @ 999 mls/hr BOLUS ONCE IV Last administered on 02:00; Start 12/08/16 at 02:00; Stop 12/08/16 at 03:00; Status DC Metronidazole 100 ml @ 100 mls/hr Q8H IV Last administered on 12/08/16 12:50 ; Start 12/08/16 at 05:00; Stop 12/08/16 at 15:35; Status DC Lactobacillus Acidophilus (Lactinex) 1 tab TID PO Last administered on 18:26; Start 12/08/16 at 09:00 Furosemide (Lasix Inj) 20 mg ONCE ONCE IV PUSH Last administered on 05:49; Start 12/08/16 at 05:30; Stop 12/08/16 at 05:40; Status DC Potassium Chloride 100 ml @ 50 mls/hr Q2H PRN IV For Potassium 2.8 - 3.2 mEq/ L Last administered on 12/12/16 11:33; Start 12/08/16 at 09:30 Potassium Chloride 100 ml @ 50 mls/hr Q2H PRN IV For Potassium 2.8 - 3.2 mEq/L ; Start 12/08/16 at 09:30 Potassium Bicarb/ Potassium Chloride (K-Lyte Cl Eff) 50 meq UNSCH PRN PO For Potassium 3.3 - 3.5 mEq/L; Start 12/08/16 at 09:30 Potassium Chloride 100 ml @ 25 mls/hr UNSCH PRN IV For Potassium 3.3 - 3.5 mEq /L Last administered on 12/11/16 06:15; Start 12/08/16 at 09:30 Potassium Chloride 100 ml @ 50 mls/hr Q2H PRN IV For Potassium 3.3 - 3.5 mEq/L ; Start 12/08/16 at 09:30 Magnesium Sulfate 4 gm/Sodium Chloride 100 ml @ 50 mls/hr UNSCH PRN IV For Magnesium 0.9 - 1.1 mg/dL; Start 12/08/16 at 09:30 Magnesium Oxide (Mag-Ox) 800 mg UNSCH PRN PO For Magnesium 1.2 - 1.6 mg/dL; Start 12/08/16 at 09:30 Magnesium Sulfate 2 gm/Sodium Chloride 100 ml @ 50 mls/hr UNSCH PRN IV For Magnesium 1.2 - 1.6 mg/dL; Start 12/08/16 at 09:30 Potassium Phosphate (K-Phos) 2,000 mg Q4H PRN PO For Phosphorus < 2.5 mg/dL; Start 12/08/16 at 09:30 Sodium Phosphate 30 mmol/Sodium Chloride 250 ml @ 42 mls/hr UNSCH PRN IV For Phosphorus < 2.5 mg/dL; Start 12/08/16 at 09:30 Potassium Phosphate (K-Phos) 2,000 mg UNSCH PRN PO/TUBE SEE LABEL COMMENTS; Start 12/08/16 at 09:30 Potassium Phosphate 30 mmol/ Sodium Chloride 260 ml @ 42 mls/hr UNSCH PRN IV SEE LABEL COMMENTS; Start 12/08/16 at 09:30 Calcium Gluconate 1 gm/Sodium Chloride 110 ml @ 110 mls/hr ONCE ONCE IV Last administered on 12/08/16 12:50; Start 12/08/16 at 12:00; Stop 12/08/16 at 12 :59; Status DC Fluconazole (Diflucan) 100 mg DAILY PO Last administered on 12/12/16 09:25; Start 12/09/16 at 09:00 Vancomycin HCl (VANCOMYCIN for oral use only) 125 mg QID PO Last administered on 12/12/16 19:56; Start 12/08/16 at 18:00 Sodium Chloride 1,000 ml @ 84 mls/hr [id number] IV Last administered on 19:55; Start 12/09/16 at 09:30 Hydralazine HCl (Apresoline Inj) 20 mg Q4H PRN IV PUSH SBP>170, DBP>90 Last administered on 12/09/16 12:05; Start 12/09/16 at 10:00; Stop 12/09/16 at 20 :11; Status DC Hydralazine HCl (Apresoline) 10 mg Q6HR PRN PO SBP>160, DBP>90 Last administered on 12/11/16 22:42; Start 12/09/16 at 10:00 Enalaprilat (Vasotec Inj) 2.5 mg Q6H PRN IV PUSH SBP>160, DBP>90 Last administered on 12/12/16 00:15; Start 12/09/16 at 09:15 Calcium Carbonate (Tums Chew) 500 mg Q12HR CHEW Last administered on 19:55; Start 12/09/16 at 09:15 Magnesium Oxide (Mag-Ox) 400 mg DAILY@1100 PO Last administered on 12/10/16 09:56; Start 12/09/16 at 11:00; Stop 12/12/16 at 10:59; Status DC Potassium Chloride (KCl) 20 meq DAILY PO Last administered on 12/12/16 09:25 ; Start 12/09/16 at 09:30; Stop 12/12/16 at 09:29; Status DC Vancomycin HCl 1250 mg/Sodium Chloride 262.5 ml @ 250 mls/hr Q12H IV Last administered on 12/11/16 04:25; Start 12/09/16 at 16:00; Stop 12/11/16 at 10 :30; Status DC Miscellaneous Information SPECIFIC LAB TO BE DRAWN:VANCO DATE TO... ONCE ONCE .XX Last administered on 12/11/16 03:45; Start 12/11/16 at 03:45; Stop at 03:46; Status DC Lorazepam (Ativan Inj) 2 mg STK-MED ONCE .ROUTE ; Start 12/09/16 at 16:08; Stop 12/09/16 at 16:09; Status DC Oxycodone/ Acetaminophen (Percocet 10-325 Mg) 1 tab TID PO Last administered on 12/12/16 18:27; Start 12/09/16 at 18:00 Lorazepam (Ativan Inj) 1 mg BID PRN IV AGITATION; Start 12/09/16 at 16:15 Clonidine (Catapres) 0.1 mg NOW ONCE PO Last administered on 12/09/16 19:15 ; Start 12/09/16 at 19:15; Stop 12/09/16 at 19:16; Status DC Flumazenil (Romazicon Inj) 0.5 mg STK-MED ONCE .ROUTE Last administered on 21:01; Start 12/09/16 at 21:01; Stop 12/09/16 at 21:02; Status DC Diltiazem HCl (Cardizem Inj) 20 mg Q8HR IV Last administered on 12/13/16 06: 37; Start 12/09/16 at 22:00 Hydralazine HCl (Apresoline Inj) 20 mg Q4H PRN IV PUSH SBP>160, DBP>90 Last administered on 12/13/16 06:20; Start 12/09/16 at 21:30 Sodium Chloride 250 ml @ 15 mls/hr ONCE ONCE IV Last administered on 02:30; Start 12/10/16 at 02:30; Stop 12/10/16 at 03:27; Status DC Iron Sucrose 100 mg/Sodium Chloride 105 ml @ 105 mls/hr DAILY IV Last administered on 12/12/16 10:04; Start 12/10/16 at 09:00; Stop 12/12/16 at 09 :59; Status DC Olanzapine (ZyPREXA) 5 mg Q12HR PO Last administered on 12/12/16 19:56; Start 12/10/16 at 14:45 Vancomycin HCl 1000 mg/Sodium Chloride 250 ml @ 250 mls/hr Q12H IV ; Start at 18:00; Stop 12/11/16 at 18:00; Status DC Miscellaneous Information SPECIFIC LAB TO BE DRAWN:VANCOMY... ONCE ONCE .XX ; Start 12/13/16 at 05:45; Stop 12/13/16 at 05:45; Status DC Ceftriaxone Sodium 2000 mg/ Sodium Chloride 100 ml @ 200 mls/hr Q24H IV Last administered on 12/12/16 15:32; Start 12/11/16 at 15:00 Acyclovir Sodium 600 mg/Sodium Chloride 100 ml @ 100 mls/hr Q8H IV Last administered on 12/13/16 00:25; Start 12/12/16 at 01:00 Gadodiamide (Omniscan Pf Inj) 17 ml STK-MED ONCE IV PUSH Last administered on 12/11/16 18:56; Start 12/11/16 at 18:56; Stop 12/11/16 at 18:57; Status DC Epinephrine HCl (EPINEPHrine (1:10,000) INJ) 2 mg STK-MED ONCE .ROUTE ; Start 12/11/16 at 19:39; Stop 12/11/16 at 19:40; Status DC Methylprednisolone Sodium Succinate 200 mg/Dextrose 103.2 ml @ 232 mls/hr Q24H IV Last administered on 12/12/16 10:04; Start 12/12/16 at 09:00 Alteplase, Recombinant (Cathflo Activase Inj) 2 mg NOW ONCE IV FLUSH Last administered on 12/12/16 17:21; Start 12/12/16 at 17:15; Stop 12/12/16 at 17 :16; Status DC Alteplase, Recombinant (Cathflo Activase Inj) 2 mg ONCE PRN IV FLUSH IF FIRST DOSE INEFFECTIVE Last administered on 12/12/16 21:29; Start 12/12/16 at 17:15 ; Stop 12/12/16 at 21:29; Status DC A/P Problem List: (1) Sepsis ICD Code: A41.9 - Sepsis, unspecified organism (2) Acute metabolic encephalopathy ICD Code: G93.41 - Metabolic encephalopathy (3) Cellulitis ICD Code: L03.90 - Cellulitis, unspecified Assessment and Plan A/P Sepsis, source possible BLE cellulitis and meningoencephalitis . patient with RA on immunosuppressive Rx. LP was done and poss viral meningitis/encephalitis. Also possible vasculitis per neuro , work up in progress. -repeated MRI brain stable. -continue IV Rocephin, Acyclovir- continue diflucan and po vanco. -on IV steroids. -Cont IVF -Neck soft tissue US no abscess -Blood cultures negative so far. -ID following. - Pt also has chronic on and off diarrhea C diff - hx of cdiff sepsis. Positive C diff this admission treat with vanco per ID Hypokalemia. replaced. Acute metabolic encephalopathy, poss due to sepsis- improving. Head CT reviewed and shows white matter hypodensity, due to artifact unknown if chronic repeated MRI brain stable. psych consult appreciated; started on Zyprexa neurology following. Seizure, started levetiracetam. EEG reviewed -Neuro checks -neurology following. Urinary retention- UA normal Abdominal CT reviewed and shows no acute disease -Cont barajas and strict I&Os Hypertension: continue cardizem; will switch to po- continue to monitor. will adjust the regimen as needed. Anemia , iron deficient. Started Venofer IV. Monitor H/H transfuse if HGB< 7 Chronic diarrhea, hx of c diff -C diff positive. DC'ed flagyl as might worsen encephalopathy, started vanco per ID RA, chronic -on Leflunomide and prednisone. Severe protein calorie malnutrition: low albumin. Consult international project engineer. Will place NGT diabetes mellitus;continue with levemir and sliding scale coverage. blood sugar levels fluctuating. will check accu-check at 3 am. DVT prophylaxis: SCDs Problem Qualifiers (1) Sepsis: Qualified Codes: A41.9 - Sepsis, unspecified organism Tamika Bonds MD Dec 13, 2016 10:02
[2016-12-13] MEDS: SODIUM CHLOR 0.45% 1000 ML INJ 1,000 ML IV SCH ×2 (10:25→20:45)
[2016-12-13] MEDS: CITALOPRAM HYDROBROMIDE 20 MG TAB PO SCH (10:26)
[2016-12-13] MEDS: WATER IV SCH ×2 (10:26)
[2016-12-13] MEDS: levETIRAcetam 1000 MG INJ 100 ML IV SCH ×2 (10:26→20:46)
[2016-12-13] MEDS: SODIUM CHLORIDE 0.9% FLUSH 10 ML FLUSH IV FLUSH SCH ×2 (10:26→21:00)
[2016-12-13] MEDS: VANCOMYCIN 500 MG VIAL (FOR ORAL USE ONLY) PO SCH ×4 (10:26→20:45)
[2016-12-13] MEDS: METHYLPREDNISOLONE SO SUCC IV SCH ×2 (10:26)
[2016-12-13] MEDS: DEXTROSE 5% IV SCH ×2 (10:26)
[2016-12-13] MEDS: GABAPENTIN 400 MG CAP PO SCH ×3 (10:26→17:57)
[2016-12-13] MEDS: OLANZapine 5 MG TAB PO SCH ×2 (10:27→20:45)
[2016-12-13] MEDS: METOPROLOL TARTRATE 50 MG TAB PO SCH ×2 (10:27→20:45)
[2016-12-13] MEDS: FLUCONAZOLE 100 MG TAB PO SCH (10:27)
[2016-12-13] MEDS: oxyCODONE/ACETAMINOPHEN 10 MG/325 MG TAB PO SCH ×3 (10:27→17:57)
[2016-12-13] MEDS: PANTOPRAZOLE SOD 40 MG DELAYED RELEASE TAB PO SCH (10:27)
[2016-12-13] MEDS: predniSONE 5 MG TAB PO SCH ×2 (10:27→21:07)
[2016-12-13] MEDS: LACTOBACILLUS ACIDOPHILUS TAB PO SCH ×3 (10:27→17:57)
[2016-12-13] MEDS: CALCIUM CARBONATE 500 MG CHEWABLE TAB CHEW SCH ×2 (10:28→20:45)
[2016-12-13] MEDS: LEFLUNOMIDE 20 MG TAB PO SCH (10:28)
--- NOTE | 2016-12-13 11:50 | PD.WCN.NOT ---
Wound Consult Description: Received consult from Doctor Bonds for L lateral calf wound management. Communicated with: ELISEO Muñoz [facility] and Doctor Bonds Recommendation: Please cleanse wound to L lateral calf with normal saline only and pat dry before applying irene thick coverage of Santyl mixed 50/ 50 with an antibiotic ointment compatible with Santyl and cover with dry 4x4 gauze pads, secured with rolled gauze and tape. Change dressing daily. Additional Information: Patient seen on [address] [place] [address] for evaluation of L lateral calf wound, around 11am.Patient's bilateral legs presents with slight erythema and dry scaly skin that is hairless. L lateral leg is noted with one open wound to L lateral calf area. Wound presents with ~90% yellow adherent dry slough with ~10% red non granulation tissue. Periwound presents with some erythema from 3 to 9 o'clock and scaly dry skin. Wound measures ~2cm x ~1cm x slough.Periwound is without induration. Wound margins are steep and wound has a punched out oval shape. Wound is not actively draining and presenting with dry wound bed, without foul odor.Pedal pulses are weak bilaterally.Wound etiology is possibly vascular related, maybe arterial.Wound culture is positive for Morganella Morgani, and SERRATIA MARCESCENS. Two other small wounds are assessed on L calf area that are covered with 100% dry white crust. Cleansed open wound to L lateral calf with normal saline and applied dry 4x4 gauze pads over wound bed and secured with rolled gauze and tape. Wound care recommendations are noted above. Ivonne Ocampo [facility] Dec 13, 2016 11:50
[2016-12-13] MEDS: DILTIAZEM HCL 30 MG TAB PO SCH ×2 (12:36→17:57)
--- NOTE | 2016-12-13 13:06 | HHI.IDPN ---
Subjective Subjective Remarks dw RN Almost at her normal self MS jones afebrile cont to d stool brain with contrast neg VZV still P getting OOB but is weak Antibiotics vanco po acyclovir zosyn Lines Line sites with no e.o infection Past Medical History reviewed Allergies: Coded Allergies: hydromorphone (Verified Allergy, Unknown, 12/06/16) metformin (Verified Allergy, Unknown, 12/06/16) Objective . Vital Signs Date Time Temp Pulse Resp B/P (MAP) Pulse Ox O2 Delivery O2 Flow Rate FiO2 12/13/16 08:57 98 21 12/13/16 06:00 64 12/13/16 04:00 97.5 72 15 150/73 (98) 100 12/13/16 04:00 72 12/13/16 02:00 66 12/13/16 00:00 76 12/13/16 00:00 97.4 76 12 162/79 (106) 99 12/12/16 22:00 76 12/12/16 21:39 98 21 12/12/16 20:00 97.5 84 13 172/79 (110) 97 12/12/16 20:00 84 12/12/16 18:00 84 12/12/16 16:00 71 12/12/16 16:00 97.5 71 13 139/73 (95) 98 12/12/16 14:00 84 . Laboratory Tests Test 12/13/16 03:49 White Blood Count 5.1 TH/MM3 Red Blood Count 3.64 MIL/MM3 Hemoglobin 8.7 GM/DL Hematocrit 27.7 % Mean Corpuscular Volume 76.3 FL Mean Corpuscular Hemoglobin 23.8 PG Mean Corpuscular Hemoglobin Concent 31.3 % Red Cell Distribution Width 18.0 % Platelet Count 215 TH/MM3 Mean Platelet Volume 7.8 FL Neutrophils (%) (Auto) 91.2 % Lymphocytes (%) (Auto) 2.5 % Monocytes (%) (Auto) 6.1 % Eosinophils (%) (Auto) 0.0 % Basophils (%) (Auto) 0.2 % Neutrophils # (Auto) 4.7 TH/MM3 Lymphocytes # (Auto) 0.1 TH/MM3 Monocytes # (Auto) 0.3 TH/MM3 Eosinophils # (Auto) 0.0 TH/MM3 Basophils # (Auto) 0.0 TH/MM3 CBC Comment DIFF FINAL Differential Comment Laboratory Tests Test 12/11/16 21:13 12/12/16 09:00 12/12/16 19:30 12/13/16 03:49 Potassium Level 3.1 MEQ/L 2.9 MEQ/L 4.2 MEQ/L 3.9 MEQ/L Blood Urea Nitrogen 14 MG/DL Creatinine 0.35 MG/DL Random Glucose 115 MG/DL Total Protein 4.6 GM/DL Calcium Level 7.4 MG/DL Sodium Level 147 MEQ/L Chloride Level 117 MEQ/L Carbon Dioxide Level 25.0 MEQ/L Anion Gap 5 MEQ/L Estimat Glomerular Filtration Rate 200 ML/MIN Protein Corrected Calcium 8.8 MG/DL Imaging Last Impressions Brain MRI 12/11/16 0000 Signed Impressions: Service Date/Time: Sunday, December 11, 2016 18:08 - CONCLUSION: Stable MRI of the brain. Nonspecific white matter diffuse symmetrical bilateral changes. 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 Caleb Najera MD Head CT 12/10/16 0000 Signed Impressions: Service Date/Time: Saturday, December 10, 2016 02:28 - CONCLUSION: 1. No acute abnormality is seen. 2. White matter demyelination. 3. Small focal area of encephalomalacia at the left cerebellar hemisphere. Marcus Chahal MD Chest X-Ray 12/08/16 0000 Signed Impressions: Service Date/Time: Thursday, December 08, 2016 01:26 - CONCLUSION: 1. Left central line in superior vena cava without pneumothorax. Baljeet Yap MD Neck Ultrasound 12/06/16 0000 Signed Impressions: Service Date/Time: Tuesday, December 06, 2016 08:06 - CONCLUSION: No abscess observed. Ultrasound evaluation for an abscess in this area is very difficult and an abscess can easily be occult by ultrasound evaluation. CT or MRI is more sensitive. Mukul Gary Jr., MD Lumbar Puncture Fluoroscopy 12/06/16 0000 Signed Impressions: Service Date/Time: Tuesday, December 06, 2016 15:52 - CONCLUSION: Uncomplicated fluoroscopically guided lumbar puncture with pressures as above. Rg Paz MD Head/Brain Mag Res Venography 12/06/16 0000 Signed Impressions: Service Date/Time: Tuesday, December 06, 2016 21:13 - CONCLUSION: Limited study. Grossly unremarkable exam. Kenroy Luong MD Head Magnetic Resonance Angiography 12/06/16 Signed Impressions: Service Date/Time: Tuesday, December 06, 2016 21:13 - CONCLUSION: Normal examination for a patient of this age. Kenroy Luong MD Hand X-Ray 12/06/16 Signed Impressions: Service Date/Time: Tuesday, December 06, 2016 20:04 - CONCLUSION: Extensive arthritis throughout the hand and wrist. Kenroy Luong MD Cervical Spine MRI 12/06/16 Signed Impressions: Service Date/Time: Tuesday, December 06, 2016 21:13 - CONCLUSION: Extremely limited MRI of the cervical spine. Kenroy Luong MD Abdomen/Pelvis CT 12/06/16 Signed Impressions: Service Date/Time: Tuesday, December 06, 2016 03:21 - CONCLUSION: No definite acute CT findings in the abdomen or pelvis. Marcus Buchanan MD Physical Exam GENERAL: Obese, Cushingoid appearing female patient, in no distress SKIN: Bilateral LE tight edma, skin is dry scaly HEAD: Atraumatic. Normocephalic. No temporal or scalp tenderness. EYES: Pupils equal round and reactive. Extraocular motions intact. No scleral icterus. No injection or drainage. ENT: Nose without bleeding, purulent drainage. Oral mucosae is moist w/o thrush Toungue in midlline NECK: Trachea midline. Large neck. No lymphadenopathy. CARDIOVASCULAR: Regular rate and rhythm without murmurs. RESPIRATORY: Clear to auscultation. Breath sounds equal bilaterally. No wheezes , rales, or rhonchi. GASTROINTESTINAL: Abdomen soft, non-tender,+ quitre distended. No palpable organomegaly + BS Liquid stool in fecal collection bag MUSCULOSKELETAL: Extremities without clubbing, cyanosis, or edema. Multiple small joints deformities involving hands and feet NEUROLOGICAL: Awake and alert. Lucid Conversant, voice sounds normal L eye upper lid slightly weaker and falls behind when compared with the other one Psych: comfortable calm and pleasant IV line sites with no e.o infection. Assessment & Plan Remarks Severe Sepsis present on admission. Possible meningoencephalitis, CSF wityh low level lymphocytic/monocytic pleocytosis, 0 neutrophils in CSF CSF HSV PCR VDRL STANISLAW virus negative. VZV P (h/o varicella in childhood per mother @ b/s) VZV P has a reported hardware in neck or had it and was removed. no e/o Epidural abscess/Spine Osteomyelitis on rad studies Cellulitis bilateral LE Pannus cellulitis with fungal infection. Cdiff positive large volume diarrhea colitis ? source of sepsis Immune compromised. RA on Prednisone and leflunomide. Acute encephalopathy: infection, sepsis, encephalitis: improving per notes Recs: MRI C spine negative. will dc CFTX 2 gm daily in 2 days dc IV acyclovir once CSF VZV PCR comes back negative cont oral Vanco (meets criteria as well as no encephalopathy side effect) Continue Diflucan for pannus cellulitis with fungal component x 7 days Follow P CSF studies cynthia RN dw mother @ b/s Sandra Nascimento MD Dec 13, 2016 13:06
--- NOTE | 2016-12-13 14:15 | HHI.PYPN ---
Subjective Remarks Patient was seen today for psychiatric reevaluation, patient with her mother in the room. Patient reports feeling much better today, still paranoid about people are around the room, thinking that people who passed in front of her room can come inside and hurt her. She also reports being afraid in the night with noises in the hospital. As I am speaking with the patient is visibly suspicious, looking for the benitez very often. At times seems to be confused. However patient is oriented 3, attentive, but with mild fluctuation of consciousness. She reports good mood, denies suicidal and homicidal ideation, denies visual and auditory hallucinations. She is compliant with medications, and no significant side effects. Review of Systems Except as stated in HPI: all other systems reviewed are Neg Mental Status Examination Appearance: Appropriate Consciousness: Alert Orientation: x4 Motor Activity: Normal gait Speech: Unremarkable Language: Adequate Fund of Knowledge: Adequate Attention and Concentration: Adequate Memory: Unremarkable Mood: Appropriate Affect: Appropriate Thought Process & Associations: Loose associations Thought Content: Hallucinations, Delusional Hallucination Type: Visual Delusion Type: Paranoid Suicidal Ideation: No Suicidal Plan: No Suicidal Intention: No Homicidal Ideation: No Homicidal Plan: No Homicidal Intention: No Insight: Adequate Judgment: Adequate Results Labs Test 12/12/16 19:30 12/13/16 03:49 Potassium Level 4.2 MEQ/L 3.9 MEQ/L White Blood Count 5.1 TH/MM3 Red Blood Count 3.64 MIL/MM3 Hemoglobin 8.7 GM/DL Hematocrit 27.7 % Mean Corpuscular Volume 76.3 FL Mean Corpuscular Hemoglobin 23.8 PG Mean Corpuscular Hemoglobin Concent 31.3 % Red Cell Distribution Width 18.0 % Platelet Count 215 TH/MM3 Mean Platelet Volume 7.8 FL Neutrophils (%) (Auto) 91.2 % Lymphocytes (%) (Auto) 2.5 % Monocytes (%) (Auto) 6.1 % Eosinophils (%) (Auto) 0.0 % Basophils (%) (Auto) 0.2 % Neutrophils # (Auto) 4.7 TH/MM3 Lymphocytes # (Auto) 0.1 TH/MM3 Monocytes # (Auto) 0.3 TH/MM3 Eosinophils # (Auto) 0.0 TH/MM3 Basophils # (Auto) 0.0 TH/MM3 CBC Comment DIFF FINAL Differential Comment Blood Urea Nitrogen 14 MG/DL Creatinine 0.35 MG/DL Random Glucose 115 MG/DL Total Protein 4.6 GM/DL Calcium Level 7.4 MG/DL Sodium Level 147 MEQ/L Chloride Level 117 MEQ/L Carbon Dioxide Level 25.0 MEQ/L Anion Gap 5 MEQ/L Estimat Glomerular Filtration Rate 200 ML/MIN Protein Corrected Calcium 8.8 MG/DL Date/Time Source Procedure Growth Status 12/06/16 02:00 Blood Peripheral Aerobic Blood Culture - Final NO GROWTH IN 5 DAYS Complete 12/06/16 02:00 Blood Peripheral Anaerobic Blood Culture - Final NO GROWTH IN 5 DAYS Complete 12/06/16 15:52 Cerebral Spinal Fluid Lumbar Puncture Fungal Smear - Final NO FUNGAL ELEMENTS SEEN. Resulted 12/06/16 15:52 Cerebral Spinal Fluid Lumbar Puncture Fungal Culture - Preliminary NO GROWTH IN 1 WEEK Resulted 12/06/16 06:20 Wound Leg Gram Stain - Final Complete 12/06/16 06:20 Wound Culture - Final Serratia Marcescens Morganella Morganii Complete Vitals/IOs Vital Signs Date Time Temp Pulse Resp B/P (MAP) Pulse Ox O2 Delivery O2 Flow Rate FiO2 12/13/16 14:00 87 12/13/16 12:00 98.2 18 177/81 (113) 94 12/13/16 08:57 21 12/12/16 08:44 Nasal Cannula 2.00 Intake and Output 12/13/16 12/13/16 12/13/16 07:59 15:59 23:59 Intake Total 940 ml Output Total 400 ml Balance 540 ml Assessment & Plan Problem List: (1) Unspecified psychosis ICD Codes: F29 - Unspecified psychosis not due to a substance or known physiological condition Assessment & Plan: Patient continues to be moderately paranoid, but not front delirium or psychosis present. Paranoia could be related with delirium related with the underlying medical conditions. Continue olanzapine 5 mg twice a day. If psychosis persist beyond medical clearance patient may need a psychiatric admission. We'll continue follow-up. Assessment & Plan Estimated LOS: days Justification for Cont. Inpt. Patient does not meet criteria for involuntary psychiatric admission at this moment. Franklin Watt MD Dec 13, 2016 14:15
[2016-12-13] MEDS: cefTRIAXone INJ 2,000 MG in SODIUM CHLORIDE 0.9% INJ 100 ML IV SCH (15:13)
[2016-12-13] MEDS: GENTAMICIN SULFATE 0.1% OINT 15 GM TUBE TOPICAL SCH (17:57)
[2016-12-13] MEDS: COLLAGENASE OINT 30 GM TUBE TOPICAL SCH (17:58)
[2016-12-13 19:53] LABS: LYME DISEASE 18KD IGG BAND NON-REACTIVE (NON REACTIV); LYME DISEASE 23 IGG BAND NON-REACTIVE (NON REACTIV); LYME DISEASE 23KD IGM BAND NON-REACTIVE (NONREACTIVE); LYME DISEASE 28KD IGG BAND NON-REACTIVE (NON REACTIV); LYME DISEASE 30KD IGG BAND NON-REACTIVE (NON REACTIV); LYME DISEASE 39 KD IGG BAND NON-REACTIVE (NONREACTIVE); LYME DISEASE 39KD IGM BAND NON-REACTIVE (NONREACTIVE); LYME DISEASE 41KD IGG BAND REACTIVE (NONREACTIVE); LYME DISEASE 41KD IGM BAND NON-REACTIVE (NONREACTIVE); LYME DISEASE 45KD IGG BAND NON-REACTIVE (NONREACTIVE); LYME DISEASE 58KD IGG BAND NON-REACTIVE (NONREACTIVE); LYME DISEASE 66KD IGG BAND NON-REACTIVE (NONREACTIVE); LYME DISEASE 93KD IGG BAND NON-REACTIVE (NONREACTIVE); LYME DISEASE IGM WB NEGATIVE (NONREACTIVE)
[2016-12-13] MEDS: INSULIN DETEMIR 100 UNITS/ML VIAL SQ SCH (20:46)
[2016-12-14] VITALS (17 sets, daily range): BP systolic 130–187; BP diastolic 58–85; PULSE 68–106; RESP 10–24; TEMP 98.1–98.7; O2SAT 88–97
[2016-12-14] MEDS: DILTIAZEM HCL 30 MG TAB PO SCH ×4 (01:04→17:59)
[2016-12-14] MEDS: ACYCLOVIR INJ 600 MG in SODIUM CHLORIDE 0.9% INJ 100 ML IV SCH ×3 (01:04→16:31)
[2016-12-14] MEDS: SODIUM CHLOR 0.45% 1000 ML INJ 1,000 ML IV SCH ×2 (01:37→18:36)
[2016-12-14] MEDS: hydrALAZINE HCL 20 MG/ML VIAL IV PUSH PRN ×3 (06:29→16:31)
--- NOTE | 2016-12-14 07:56 | HHI.PR ---
Subjective Remarks afeb Objective Vital Signs Date Time Temp Pulse Resp B/P (MAP) Pulse Ox O2 Delivery O2 Flow Rate FiO2 12/14/16 07:16 96 Nasal Cannula 2.00 12/14/16 06:00 84 12/14/16 04:00 75 12/14/16 04:00 98.4 75 10 148/67 (94) 96 12/14/16 02:00 71 12/14/16 00:00 98.7 68 13 130/58 (82) 95 12/14/16 00:00 68 12/13/16 22:00 79 12/13/16 20:00 98.4 88 15 141/65 (90) 93 12/13/16 20:00 88 12/13/16 18:00 92 12/13/16 16:00 87 12/13/16 16:00 98.2 87 24 164/76 (105) 92 12/13/16 14:00 87 12/13/16 12:00 98.2 88 18 177/81 (113) 94 12/13/16 12:00 88 12/13/16 10:00 110 12/13/16 08:57 98 21 12/13/16 08:00 79 12/13/16 08:00 97.6 79 20 179/82 (114) 100 I/O 12/13/16 12/13/16 12/13/16 12/14/16 12/14/16 12/14/16 07:00 15:00 23:00 07:00 15:00 23:00 Intake Total 940 ml 900 ml 832 ml Output Total 400 ml 2350 ml 1750 ml Balance 540 ml -1450 ml -918 ml Intake Oral 900 ml IV Total 940 ml 832 ml Output Urine Total 300 ml 2300 ml 1600 ml Stool Total 100 ml 50 ml 150 ml Result Diagram: 12/13/16 0349 12/13/16 034 Objective Remarks awake alert energetic moves ble well Assessment and Plan Assessment and Plan imp LP 15 wbc but protein markedly inc to 172 68L on abt id on board may be viral encephalitis i think solumedrol day 2 rec send off viral titers if enough csf echo neg eeg some sharps keppra started mra and mrv neg small left TS mri brain 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 ms i think unlikley and viral titers i would keep in icu over weekend plz 12/12/16 much better will taper off solumedrol oob with PT dc acyclovir? i would like to hsv neg vzv pend defer to id on kera mri no major change some wm changes rim vents no change 12/14/16 better q day legs buckled with stand needs inc PT check standing bp oob fabby ocb pend csf mbp neg igg index mild inc taper off steroids and then will need home dose of 5mg bid or q day prob better rf not very high vzv still pend? why so long? as would like to get off acyclovir Rg Turner MD Dec 14, 2016 07:56
[2016-12-14] MEDS: INSULIN ASPART SUPPLEMENTAL SCALE SQ SCH ×4 (08:30→20:42)
[2016-12-14] MEDS: predniSONE 5 MG TAB PO SCH (09:00)
[2016-12-14] MEDS: DOCUSATE SODIUM 50 MG/SENNA 8.6 MG TAB PO SCH ×2 (09:00→20:41)
[2016-12-14] MEDS ORDERED: DEXTROSE 5% IV SCH ×2 (10:00)
[2016-12-14] MEDS ORDERED: METHYLPREDNISOLONE SO SUCC IV SCH ×2 (10:00)
[2016-12-14] MEDS ORDERED: WATER IV SCH ×2 (10:00)
[2016-12-14] MEDS: VANCOMYCIN 500 MG VIAL (FOR ORAL USE ONLY) PO SCH ×4 (10:09→20:50)
[2016-12-14] MEDS: SODIUM CHLORIDE 0.9% FLUSH 10 ML FLUSH IV FLUSH SCH ×2 (10:09→20:42)
[2016-12-14] MEDS: levETIRAcetam 1000 MG INJ 100 ML IV SCH ×2 (10:10→20:42)
[2016-12-14] MEDS: GENTAMICIN SULFATE 0.1% OINT 15 GM TUBE TOPICAL SCH (10:11)
[2016-12-14] MEDS: COLLAGENASE OINT 30 GM TUBE TOPICAL SCH (10:11)
[2016-12-14] MEDS: CALCIUM CARBONATE 500 MG CHEWABLE TAB CHEW SCH ×2 (10:11→20:42)
[2016-12-14] MEDS: GABAPENTIN 400 MG CAP PO SCH ×3 (10:12→17:59)
[2016-12-14] MEDS: CITALOPRAM HYDROBROMIDE 20 MG TAB PO SCH (10:12)
[2016-12-14] MEDS: LACTOBACILLUS ACIDOPHILUS TAB PO SCH ×3 (10:12→17:58)
[2016-12-14] MEDS: oxyCODONE/ACETAMINOPHEN 10 MG/325 MG TAB PO SCH ×3 (10:12→17:59)
[2016-12-14] MEDS: FLUCONAZOLE 100 MG TAB PO SCH (10:12)
[2016-12-14] MEDS: PANTOPRAZOLE SOD 40 MG DELAYED RELEASE TAB PO SCH (10:12)
[2016-12-14] MEDS: OLANZapine 5 MG TAB PO SCH ×2 (10:12→20:41)
[2016-12-14] MEDS: METOPROLOL TARTRATE 50 MG TAB PO SCH ×2 (10:12→20:41)
[2016-12-14] MEDS: LEFLUNOMIDE 20 MG TAB PO SCH (10:14)
--- NOTE | 2016-12-14 11:41 | HHI.PR ---
Subjective Remarks overall doing better. but has difficulty with ambulation because of her arthritis. no fever. blood sugar trend noted. d/w the RN. Objective Vitals Vital Signs Date Time Temp Pulse Resp B/P (MAP) Pulse Ox O2 Delivery O2 Flow Rate FiO2 12/14/16 07:16 96 Nasal Cannula 2.00 12/14/16 06:00 84 12/14/16 04:00 75 12/14/16 04:00 98.4 75 10 148/67 (94) 96 12/14/16 02:00 71 12/14/16 00:00 98.7 68 13 130/58 (82) 95 12/14/16 00:00 68 12/13/16 22:00 79 12/13/16 20:00 98.4 88 15 141/65 (90) 93 12/13/16 20:00 88 12/13/16 18:00 92 12/13/16 16:00 87 12/13/16 16:00 98.2 87 24 164/76 (105) 92 12/13/16 14:00 87 12/13/16 12:00 98.2 88 18 177/81 (113) 94 12/13/16 12:00 88 I/O 12/13/16 12/13/16 12/13/16 12/14/16 12/14/16 12/14/16 07:00 15:00 23:00 07:00 15:00 23:00 Intake Total 940 ml 900 ml 832 ml Output Total 400 ml 2350 ml 1750 ml Balance 540 ml -1450 ml -918 ml Intake Oral 900 ml IV Total 940 ml 832 ml Output Urine Total 300 ml 2300 ml 1600 ml Stool Total 100 ml 50 ml 150 ml Result Diagram: 12/13/16 0349 12/13/16 0349 Imaging Last Impressions Brain MRI 12/11/16 0000 Signed Impressions: Service Date/Time: Sunday, December 11, 2016 18:08 - CONCLUSION: Stable MRI of the brain. Nonspecific white matter diffuse symmetrical bilateral changes. 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 Caleb Najera MD Head CT 12/10/16 0000 Signed Impressions: Service Date/Time: Saturday, December 10, 2016 02:28 - CONCLUSION: 1. No acute abnormality is seen. 2. White matter demyelination. 3. Small focal area of encephalomalacia at the left cerebellar hemisphere. Marcus Chahal MD Chest X-Ray 12/08/16 Signed Impressions: Service Date/Time: Thursday, December 08, 2016 01:26 - CONCLUSION: 1. Left central line in superior vena cava without pneumothorax. Baljeet Yap MD Neck Ultrasound 12/06/16 Signed Impressions: Service Date/Time: Tuesday, December 06, 2016 08:06 - CONCLUSION: No abscess observed. Ultrasound evaluation for an abscess in this area is very difficult and an abscess can easily be occult by ultrasound evaluation. CT or MRI is more sensitive. Mukul Gary Jr., MD Lumbar Puncture Fluoroscopy 12/06/16 Signed Impressions: Service Date/Time: Tuesday, December 06, 2016 15:52 - CONCLUSION: Uncomplicated fluoroscopically guided lumbar puncture with pressures as above. Rg Paz MD Head/Brain Mag Res Venography 12/06/16 Signed Impressions: Service Date/Time: Tuesday, December 06, 2016 21:13 - CONCLUSION: Limited study. Grossly unremarkable exam. Kenroy Luong MD Head Magnetic Resonance Angiography 12/06/16 Signed Impressions: Service Date/Time: Tuesday, December 06, 2016 21:13 - CONCLUSION: Normal examination for a patient of this age. Kenroy Luong MD Hand X-Ray 12/06/16 Signed Impressions: Service Date/Time: Tuesday, December 06, 2016 20:04 - CONCLUSION: Extensive arthritis throughout the hand and wrist. Kenroy Luong MD Cervical Spine MRI 12/06/16 Signed Impressions: Service Date/Time: Tuesday, December 06, 2016 21:13 - CONCLUSION: Extremely limited MRI of the cervical spine. Kenroy Luong MD Abdomen/Pelvis CT 12/06/16 Signed Impressions: Service Date/Time: Tuesday, December 06, 2016 03:21 - CONCLUSION: No definite acute CT findings in the abdomen or pelvis. Marcus Buchanan MD Objective Remarks GENERAL: This is a well-nourished, well-developed patient, in no apparent distress. CARDIOVASCULAR: Regular rate and regular rhythm without murmurs, gallops, or rubs. RESPIRATORY: Clear to auscultation. Breath sounds equal bilaterally. No wheezes , rales, or rhonchi. GASTROINTESTINAL: Abdomen soft, non-tender, nondistended. Normal, active bowel sounds MUSCULOSKELETAL: Extremities without clubbing, cyanosis, or edema. NEURO: awake and alert. Procedures central line placement. Medications and IVs Current Medications Sodium Chloride 1,000 ml @ 1,000 mls/hr Q1H ONCE IV Last administered on 12/06 02:15; Start 12/06/16 at 02:00; Stop 12/06/16 at 02:59; Status DC Acetaminophen (Tylenol Supp) 650 mg ONCE ONCE RECTAL Last administered on 02:49; Start 12/06/16 at 02:00; Stop 12/06/16 at 02:03; Status DC Piperacillin Sod/ Tazobactam Sod 50 ml @ 100 mls/hr ONCE ONCE IV Last administered on 12/06/16 02:49; Start 12/06/16 at 02:00; Stop 12/06/16 at 02 :29; Status DC Vancomycin HCl 1000 mg/Sodium Chloride 250 ml @ 250 mls/hr ONCE ONCE IV Last administered on 12/06/16 02:58; Start 12/06/16 at 02:00; Stop 12/06/16 at 02 :59; Status DC Lorazepam (Ativan Inj) 1 mg ONCE ONCE IV PUSH Last administered on 12/06/16 03:09; Start 12/06/16 at 03:15; Stop 12/06/16 at 03:16; Status DC Iohexol (Omnipaque 350 Inj) 80 ml STK-MED ONCE IVCONTRAST Last administered on 12/06/16 01:36; Start 12/06/16 at 01:36; Stop 12/06/16 at 03:22; Status DC Sodium Chloride 1,000 ml @ 1,000 mls/hr Q1H ONCE IV Last administered on 12/06 04:13; Start 12/06/16 at 03:53; Stop 12/06/16 at 04:52; Status DC Sodium Chloride 800 ml @ 1,000 mls/hr Q48M ONCE IV Last administered on 04:13; Start 12/06/16 at 03:53; Stop 12/06/16 at 04:41; Status DC Sodium Chloride (NS Flush) 2 ml UNSCH PRN IV FLUSH FLUSH AFTER USING IV ACCESS ; Start 12/06/16 at 04:45 Sodium Chloride (NS Flush) 2 ml BID IV FLUSH Last administered on 12/14/16 10 :09; Start 12/06/16 at 09:00 Naloxone HCl (Narcan Inj) 0.4 mg UNSCH PRN IV PUSH SEE LABEL COMMENTS; Start 12/06/16 at 04:45; Stop 12/06/16 at 09:14; Status DC Pharmacy Profile Note 0 ml @ 0 mls/hr UNSCH OTHER ; Start 12/06/16 at 04:45; Stop 12/11/16 at 14:40; Status DC Piperacillin Sod/ Tazobactam Sod 100 ml @ 200 mls/hr Q6H IV Last administered on 12/11/16 13:26; Start 12/06/16 at 08:00; Stop 12/11/16 at 14:39; Status DC Metoprolol Tartrate (Lopressor) 25 mg ONCE ONCE PO ; Start 12/06/16 at 06:30; Stop 12/06/16 at 06:45; Status DC Diltiazem HCl (Cardizem Inj) 15 mg ONCE ONCE IV Last administered on 06:55; Start 12/06/16 at 06:45; Stop 12/06/16 at 06:51; Status DC Diltiazem HCl (Cardizem Inj) 15 mg Q4H PRN IV HR>120 or BP >160/90 Last administered on 12/09/16 07:52; Start 12/06/16 at 06:45; Stop 12/09/16 at 19 :15; Status DC Diltiazem HCl (Cardizem Inj) 20 mg Q8H IV Last administered on 12/09/16 14:45 ; Start 12/06/16 at 14:00; Stop 12/09/16 at 19:15; Status DC Sodium Chloride 1,000 ml @ 100 mls/hr Q10H IV Last administered on 12/08/16 17:35; Start 12/06/16 at 08:02; Stop 12/08/16 at 21:26; Status DC Sodium Chloride (NS Flush) 2 ml UNSCH PRN IV FLUSH FLUSH AFTER USING IV ACCESS ; Start 12/06/16 at 08:15; Stop 12/06/16 at 09:14; Status DC Sodium Chloride (NS Flush) 2 ml BID IV FLUSH ; Start 12/06/16 at 09:00; Stop 12/06/16 at 09:14; Status DC Acetaminophen (Tylenol) 650 mg Q4H PRN PO TEMP > 100.4 Last administered on 14:56; Start 12/06/16 at 08:15 Ondansetron HCl (Zofran Inj) 4 mg Q6H PRN IVP NAUSEA OR VOMITING; Start at 08:15 Prochlorperazine (Compazine Supp) 25 mg Q12H PRN RECTAL NAUSEA OR VOMITING; Start 12/06/16 at 08:15; Stop 12/06/16 at 16:46; Status DC Acetaminophen (Tylenol) 650 mg Q6H PRN PO PAIN SCALE 1 TO 2; Start 12/06/16 at 08:15 Oxycodone/ Acetaminophen (Percocet 5-325 Mg) 1 tab Q6H PRN PO PAIN SCALE 3 TO 5; Start 12/06/16 at 08:15; Stop 12/06/16 at 16:46; Status DC Oxycodone/ Acetaminophen (Percocet 10-325 Mg) 1 tab Q6H PRN PO PAIN SCALE 6 TO 10 Last administered on 12/06/16 15:14; Start 12/06/16 at 08:15; Stop at 16:46; Status DC Morphine Sulfate (Morphine Inj) 2 mg Q3H PRN IV PUSH Pain 3-5; if unable to take PO Last administered on 12/06/16 09:35; Start 12/06/16 at 08:15; Stop 12/06/16 at 16:46; Status DC Morphine Sulfate (Morphine Inj) 4 mg Q3H PRN IV PUSH Pain 6-10;if unable to take PO Last administered on 12/06/16 16:27; Start 12/06/16 at 08:15; Stop 12/06/16 at 16:46; Status DC Naloxone HCl (Narcan Inj) 0.4 mg UNSCH PRN IV PUSH SEE LABEL COMMENTS; Start 12/06/16 at 08:15 Senna/Docusate Sodium (Shaylee-Colace) 1 tab BID PO Last administered on 10/12/ 17at 20:22; Start 12/06/16 at 09:00 Magnesium Hydroxide (Milk Of Magnesia Liq) 30 ml Q12H PRN PO MILD - MODERATE CONSTIPATION; Start 12/06/16 at 08:15 Sennosides (Senokot) 17.2 mg Q12H PRN PO MODERATE - SEVERE CONSTIPATION; Start 12/06/16 at 08:15 Bisacodyl (Dulcolax Supp) 10 mg DAILY PRN RECTAL SEVERE CONSITIPATION; Start 12/06/16 at 08:15 Lactulose (Lactulose Liq) 30 ml DAILY PRN PO SEVERE CONSITIPATION; Start 12/06 at 08:15 Vancomycin HCl 1250 mg/Sodium Chloride 262.5 ml @ 250 mls/hr Q12H IV Last administered on 12/07/16 08:38; Start 12/06/16 at 12:00; Stop 12/07/16 at 15 :53; Status DC Miscellaneous Information SPECIFIC LAB TO BE DRAWN:VANCOMYCIN TROUGH DATE TO... ONCE ONCE .XX ; Start 12/07/16 at 11:45; Stop 12/07/16 at 11:45; Status DC Metoprolol Tartrate (Lopressor Inj) 5 mg Q6H PRN IV PUSH tachycardia Last administered on 12/09/16 15:11; Start 12/06/16 at 13:00; Stop 12/09/16 at 20 :11; Status DC Insulin Detemir (Levemir Inj) 30 units HS SQ Last administered on 12/13/16 20 :46; Start 12/06/16 at 21:00 Acetaminophen (Tylenol Supp) 650 mg Q6H PRN RECTAL FEVER; Start 12/06/16 at 13 :30; Status UNV Metoprolol Tartrate (Lopressor) 50 mg Q12HR PO Last administered on 12/14/16 10:12; Start 12/06/16 at 21:00 Acyclovir Sodium 600 mg/Sodium Chloride 100 ml @ 100 mls/hr Q8H IV Last administered on 12/11/16 16:45; Start 12/06/16 at 17:00; Stop 12/11/16 at 18 :00; Status DC Fluconazole/ Sodium Chloride 50 ml @ 50 mls/hr Q24H IV ; Start 12/06/16 at 16: 00; Stop 12/06/16 at 16:00; Status DC Acetaminophen (Tylenol Supp) 650 mg Q6H PRN RECTAL fevers; Start 12/06/16 at 14:45 Fluconazole/ Sodium Chloride 50 ml @ 50 mls/hr Q24H IV Last administered on 18:24; Start 12/06/16 at 18:00; Stop 12/08/16 at 15:35; Status DC Ampicillin Sodium 2000 mg/Sodium Chloride 100 ml @ 400 mls/hr Q4H IV ; Start 12/06/16 at 17:00; Stop 12/06/16 at 17:16; Status DC Sodium Chloride 1,000 ml @ 75 mls/hr [id number] IV Last administered on 04:20; Start 12/06/16 at 16:41; Stop 12/09/16 at 09:10; Status DC Baclofen (Lioresal) 10 mg Q8HR PRN PO MUSCLE SPASMS; Start 12/06/16 at 17:00; Stop 12/07/16 at 07:30; Status DC Citalopram Hydrobromide (CeleXA) 20 mg DAILY PO Last administered on 10:12; Start 12/07/16 at 09:00 Gabapentin (Neurontin) 800 mg TID PO Last administered on 12/14/16 10:12; Start 12/06/16 at 18:00 Hydroxyzine HCl (Atarax) 50 mg BID PRN PO ITCHING; Start 12/06/16 at 17:00 Oxybutynin Chloride (Ditropan) 5 mg Q12HR PRN PO URGENCY; Start 12/06/16 at 17 :00 Oxycodone/ Acetaminophen (Percocet 10-325 Mg) 1 tab Q6H PRN PO PAIN SCALE 3-10 Last administered on 12/07/16 04:27; Start 12/06/16 at 17:00; Stop 12/07/16 at 07:30; Status DC Leflunomide (Arava) 20 mg DAILY PO Last administered on 12/14/16 10:14; Start 12/07/16 at 09:00 Ampicillin Sodium 2000 mg/Sodium Chloride 100 ml @ 400 mls/hr Q4H IV Last administered on 12/07/16 13:40; Start 12/06/16 at 18:00; Stop 12/07/16 at 18 :21; Status DC Atropine Sulfate (Atropine Inj) 1 mg STK-MED ONCE .ROUTE ; Start 12/06/16 at 20 :46; Stop 12/06/16 at 20:47; Status DC Epinephrine HCl (EPINEPHrine (1:10,000) INJ) 1 mg STK-MED ONCE .ROUTE ; Start 12/06/16 at 20:46; Stop 12/06/16 at 20:47; Status DC Prednisone (Deltasone) 5 mg BID PO Last administered on 12/13/16 21:07; Start 12/07/16 at 09:00; Status Future Hold Prednisone (Deltasone) 5 mg ONCE ONCE PO ; Start 12/06/16 at 23:15; Stop 01/12 at 23:16; Status DC Enoxaparin Sodium (Lovenox Inj) 40 mg Q24H SQ ; Start 12/07/16 at 09:00; Stop 12/07/16 at 09:00; Status DC Pantoprazole Sodium (Protonix) 40 mg DAILY PO Last administered on 12/14/16 10:12; Start 12/07/16 at 09:00 Baclofen (Lioresal) 5 mg BID PRN PO MUSCLE SPASMS; Start 12/07/16 at 07:30 Methylprednisolone Sodium Succinate (SoluMEDROL INJ) 1,000 mg Q24H IV ; Start 12/07/16 at 07:30; Stop 12/07/16 at 07:35; Status DC Methylprednisolone Sodium Succinate 1000 mg/Dextrose 116 ml @ 232 mls/hr Q24H IV Last administered on 12/11/16 08:38; Start 12/07/16 at 09:00; Stop 12/12 at 08:02; Status DC Miscellaneous (Pill Splitter) 1 ea UNSCH PRN OTHER SEE LABEL COMMENTS; Start 12/07/16 at 07:45 Dextrose (D50w (Vial) Inj) 50 ml UNSCH PRN IV PUSH HYPOGLYCEMIA-SEE COMMENTS; Start 12/07/16 at 11:30; Stop 12/09/16 at 19:17; Status DC Glucagon (Glucagon Inj) 1 mg UNSCH PRN OTHER HYPOGLYCEMIA-SEE COMMENTS; Start 12/07/16 at 11:30; Stop 12/10/16 at 07:17; Status DC Levetriacetam 100 ml @ 400 mls/hr Q12HR IV Last administered on 12/14/16 10: 10; Start 12/07/16 at 14:00 Vancomycin HCl 1250 mg/Sodium Chloride 262.5 ml @ 250 mls/hr Q12H IV Last administered on 12/07/16 20:21; Start 12/07/16 at 21:00; Stop 12/09/16 at 15 :24; Status DC Miscellaneous Information SPECIFIC LAB TO BE HALLE... ONCE ONCE .XX ; Start at 08:45; Stop 12/08/16 at 08:46; Status DC Dextrose (D50w (Vial) Inj) 50 ml UNSCH PRN IV PUSH HYPOGLYCEMIA-SEE COMMENTS; Start 12/07/16 at 18:15 Glucagon (Glucagon Inj) 1 mg UNSCH PRN OTHER HYPOGLYCEMIA-SEE COMMENTS; Start 12/07/16 at 18:15 Insulin Aspart (NovoLOG SUPPLEMENTAL SCALE) 1 ACHS SLIDING SCALE SQ Last administered on 12/13/16 20:46; Start 12/07/16 at 21:00 Sodium Chloride 1,000 ml @ 999 mls/hr BOLUS ONCE IV Last administered on 02:00; Start 12/08/16 at 02:00; Stop 12/08/16 at 03:00; Status DC Metronidazole 100 ml @ 100 mls/hr Q8H IV Last administered on 12/08/16 12:50 ; Start 12/08/16 at 05:00; Stop 12/08/16 at 15:35; Status DC Lactobacillus Acidophilus (Lactinex) 1 tab TID PO Last administered on 10:12; Start 12/08/16 at 09:00 Furosemide (Lasix Inj) 20 mg ONCE ONCE IV PUSH Last administered on 05:49; Start 12/08/16 at 05:30; Stop 12/08/16 at 05:40; Status DC Potassium Chloride 100 ml @ 50 mls/hr Q2H PRN IV For Potassium 2.8 - 3.2 mEq/ L Last administered on 12/12/16 11:33; Start 12/08/16 at 09:30 Potassium Chloride 100 ml @ 50 mls/hr Q2H PRN IV For Potassium 2.8 - 3.2 mEq/L ; Start 12/08/16 at 09:30 Potassium Bicarb/ Potassium Chloride (K-Lyte Cl Eff) 50 meq UNSCH PRN PO For Potassium 3.3 - 3.5 mEq/L; Start 12/08/16 at 09:30 Potassium Chloride 100 ml @ 25 mls/hr UNSCH PRN IV For Potassium 3.3 - 3.5 mEq /L Last administered on 12/11/16 06:15; Start 12/08/16 at 09:30 Potassium Chloride 100 ml @ 50 mls/hr Q2H PRN IV For Potassium 3.3 - 3.5 mEq/L ; Start 12/08/16 at 09:30 Magnesium Sulfate 4 gm/Sodium Chloride 100 ml @ 50 mls/hr UNSCH PRN IV For Magnesium 0.9 - 1.1 mg/dL; Start 12/08/16 at 09:30 Magnesium Oxide (Mag-Ox) 800 mg UNSCH PRN PO For Magnesium 1.2 - 1.6 mg/dL; Start 12/08/16 at 09:30 Magnesium Sulfate 2 gm/Sodium Chloride 100 ml @ 50 mls/hr UNSCH PRN IV For Magnesium 1.2 - 1.6 mg/dL; Start 12/08/16 at 09:30 Potassium Phosphate (K-Phos) 2,000 mg Q4H PRN PO For Phosphorus < 2.5 mg/dL; Start 12/08/16 at 09:30 Sodium Phosphate 30 mmol/Sodium Chloride 250 ml @ 42 mls/hr UNSCH PRN IV For Phosphorus < 2.5 mg/dL; Start 12/08/16 at 09:30 Potassium Phosphate (K-Phos) 2,000 mg UNSCH PRN PO/TUBE SEE LABEL COMMENTS; Start 12/08/16 at 09:30 Potassium Phosphate 30 mmol/ Sodium Chloride 260 ml @ 42 mls/hr UNSCH PRN IV SEE LABEL COMMENTS; Start 12/08/16 at 09:30 Calcium Gluconate 1 gm/Sodium Chloride 110 ml @ 110 mls/hr ONCE ONCE IV Last administered on 12/08/16 12:50; Start 12/08/16 at 12:00; Stop 12/08/16 at 12 :59; Status DC Fluconazole (Diflucan) 100 mg DAILY PO Last administered on 12/14/16t 10:12; Start 12/09/16 at 09:00 Vancomycin HCl (VANCOMYCIN for oral use only) 125 mg QID PO Last administered on 12/14/16 10:09; Start 12/08/16 at 18:00 Sodium Chloride 1,000 ml @ 84 mls/hr [id number] IV Last administered on 01:37; Start 12/09/16 at 09:30 Hydralazine HCl (Apresoline Inj) 20 mg Q4H PRN IV PUSH SBP>170, DBP>90 Last administered on 12/09/16 12:05; Start 12/09/16 at 10:00; Stop 12/09/16 at 20 :11; Status DC Hydralazine HCl (Apresoline) 10 mg Q6HR PRN PO SBP>160, DBP>90 Last administered on 12/11/16 22:42; Start 12/09/16 at 10:00 Enalaprilat (Vasotec Inj) 2.5 mg Q6H PRN IV PUSH SBP>160, DBP>90 Last administered on 12/12/16 00:15; Start 12/09/16 at 09:15 Calcium Carbonate (Tums Chew) 500 mg Q12HR CHEW Last administered on 10:11; Start 12/09/16 at 09:15 Magnesium Oxide (Mag-Ox) 400 mg DAILY@1100 PO Last administered on 12/10/16 09:56; Start 12/09/16 at 11:00; Stop 12/12/16 at 10:59; Status DC Potassium Chloride (KCl) 20 meq DAILY PO Last administered on 12/12/16 09:25 ; Start 12/09/16 at 09:30; Stop 12/12/16 at 09:29; Status DC Vancomycin HCl 1250 mg/Sodium Chloride 262.5 ml @ 250 mls/hr Q12H IV Last administered on 12/11/16 04:25; Start 12/09/16 at 16:00; Stop 12/11/16 at 10 :30; Status DC Miscellaneous Information SPECIFIC LAB TO BE DRAWN:VANCO DATE TO... ONCE ONCE .XX Last administered on 12/11/16 03:45; Start 12/11/16 at 03:45; Stop at 03:46; Status DC Lorazepam (Ativan Inj) 2 mg STK-MED ONCE .ROUTE ; Start 12/09/16 at 16:08; Stop 12/09/16 at 16:09; Status DC Oxycodone/ Acetaminophen (Percocet 10-325 Mg) 1 tab TID PO Last administered on 12/14/16 10:12; Start 12/09/16 at 18:00 Lorazepam (Ativan Inj) 1 mg BID PRN IV AGITATION; Start 12/09/16 at 16:15 Clonidine (Catapres) 0.1 mg NOW ONCE PO Last administered on 12/09/16 19:15 ; Start 12/09/16 at 19:15; Stop 12/09/16 at 19:16; Status DC Flumazenil (Romazicon Inj) 0.5 mg STK-MED ONCE .ROUTE Last administered on 21:01; Start 12/09/16 at 21:01; Stop 12/09/16 at 21:02; Status DC Diltiazem HCl (Cardizem Inj) 20 mg Q8HR IV Last administered on 12/13/16 06: 37; Start 12/09/16 at 22:00; Stop 12/13/16 at 10:04; Status DC Hydralazine HCl (Apresoline Inj) 20 mg Q4H PRN IV PUSH SBP>160, DBP>90 Last administered on 12/14/16 10:09; Start 12/09/16 at 21:30 Sodium Chloride 250 ml @ 15 mls/hr ONCE ONCE IV Last administered on 02:30; Start 12/10/16 at 02:30; Stop 12/10/16 at 03:27; Status DC Iron Sucrose 100 mg/Sodium Chloride 105 ml @ 105 mls/hr DAILY IV Last administered on 12/12/16 10:04; Start 12/10/16 at 09:00; Stop 12/12/16 at 09 :59; Status DC Olanzapine (ZyPREXA) 5 mg Q12HR PO Last administered on 12/14/16 10:12; Start 12/10/16 at 14:45 Vancomycin HCl 1000 mg/Sodium Chloride 250 ml @ 250 mls/hr Q12H IV ; Start at 18:00; Stop 12/11/16 at 18:00; Status DC Miscellaneous Information SPECIFIC LAB TO BE DRAWN:VANCOMY... ONCE ONCE .XX ; Start 12/13/16 at 05:45; Stop 12/13/16 at 05:45; Status DC Ceftriaxone Sodium 2000 mg/ Sodium Chloride 100 ml @ 200 mls/hr Q24H IV Last administered on 12/13/16 15:13; Start 12/11/16 at 15:00; Stop 12/15/16 at 23 :55 Acyclovir Sodium 600 mg/Sodium Chloride 100 ml @ 100 mls/hr Q8H IV Last administered on 12/14/16 10:11; Start 12/12/16 at 01:00 Gadodiamide (Omniscan Pf Inj) 17 ml STK-MED ONCE IV PUSH Last administered on 12/11/16 18:56; Start 12/11/16 at 18:56; Stop 12/11/16 at 18:57; Status DC Epinephrine HCl (EPINEPHrine (1:10,000) INJ) 2 mg STK-MED ONCE .ROUTE ; Start 12/11/16 at 19:39; Stop 12/11/16 at 19:40; Status DC Methylprednisolone Sodium Succinate 200 mg/Dextrose 103.2 ml @ 232 mls/hr Q24H IV Last administered on 12/13/16 10:26; Start 12/12/16 at 09:00; Stop 12/14 at 07:55; Status DC Alteplase, Recombinant (Cathflo Activase Inj) 2 mg NOW ONCE IV FLUSH Last administered on 12/12/16 17:21; Start 12/12/16 at 17:15; Stop 12/12/16 at 17 :16; Status DC Alteplase, Recombinant (Cathflo Activase Inj) 2 mg ONCE PRN IV FLUSH IF FIRST DOSE INEFFECTIVE Last administered on 12/12/16 21:29; Start 12/12/16 at 17:15 ; Stop 12/12/16 at 21:29; Status DC Diltiazem HCl (Cardizem) 30 mg Q6HR PO Last administered on 12/14/16 10:13; Start 12/13/16 at 12:00 Collagenase (Santyl Oint) 1 applic DAILY TOPICAL Last administered on 10:11; Start 12/13/16 at 18:00 Gentamicin Sulfate (Gentamicin 0.1% Oint) 1 applic DAILY TOPICAL Last administered on 12/14/16t 10:11; Start 12/13/16 at 18:00 Methylprednisolone Sodium Succinate 50 mg/Dextrose 100.8 ml @ 232 mls/hr Q24H IV ; Start 12/14/16 at 10:00; Stop 12/16/16 at 10:01 Prednisone (Deltasone) 5 mg DAILY@0600 PO ; Start 12/17/16 at 06:00 A/P Problem List: (1) Sepsis ICD Code: A41.9 - Sepsis, unspecified organism (2) Acute metabolic encephalopathy ICD Code: G93.41 - Metabolic encephalopathy (3) Cellulitis ICD Code: L03.90 - Cellulitis, unspecified Assessment and Plan A/P Sepsis, source possible BLE cellulitis and meningoencephalitis . patient with RA on immunosuppressive Rx. LP was done and poss viral meningitis/encephalitis. Also possible vasculitis per neuro , work up in progress. -repeated MRI brain stable. -continue IV Rocephin, Acyclovir- continue diflucan and po vanco. -on IV steroids; being tapered down. -Neck soft tissue US no abscess -Blood cultures negative so far. -VZV PCR pending. -ID following. - Pt also has chronic on and off diarrhea C diff - hx of cdiff sepsis. Positive C diff this admission treat with vanco per ID Hypokalemia. replaced. Acute metabolic encephalopathy, poss due to sepsis- improving. Head CT reviewed and shows white matter hypodensity, due to artifact unknown if chronic repeated MRI brain stable. psych consult appreciated; started on Zyprexa neurology following. Seizure, started levetiracetam. EEG reviewed -Neuro checks -neurology following. Urinary retention- UA normal Abdominal CT reviewed and shows no acute disease -Cont barajas and strict I&Os Hypertension: continue cardizem;continue to monitor. will adjust the regimen as needed. Anemia , iron deficient. received Venofer IV. Monitor H/H transfuse if HGB< 7 Chronic diarrhea, hx of c diff -C diff positive. DC'ed flagyl as might worsen encephalopathy, started vanco per ID RA, chronic -on Leflunomide and prednisone. Severe protein calorie malnutrition: low albumin. Consulted custodial services manager. diabetes mellitus; noted 3 am accu-check 46 decrease levemir to 10 units subq q12 hrs-and continue with sliding scale coverage. continue to monitor and adjust the regimen as needed. DVT prophylaxis: SCDs transfer to telemetry when ok with neurology. continue PT. dc jenn silva. d/w the RN. Problem Qualifiers (1) Sepsis: Qualified Codes: A41.9 - Sepsis, unspecified organism Tamika Bonds MD Dec 14, 2016 11:41
[2016-12-14] MEDS: cefTRIAXone INJ 2,000 MG in SODIUM CHLORIDE 0.9% INJ 100 ML IV SCH (14:44)
--- NOTE | 2016-12-14 17:45 | HHI.HCPN ---
Reason for visit a. To assist with evaluation and management of symptoms including: pain, decreased appetite, altered mental status. b. To assist medical decision maker(s) with: better understanding of current medical conditions; weighing benefits/burdens of medical treatment options; making medical treatment decisions. . Subjective/Interval History Patient seen and examined in ICU. No family at bedside. Patient alert and oriented x self, place and situation. Patient endorsing generalized pain. She tells me that she has been battling with RA pain for many years. Patient reported as sharp, intermittent. Exacerbated with movement, alleviated at times with Percocet. Patient endorsing dry mouth, denies nausea/vomiting or abdominal discomfort. Reporting decreased appetite and oral intake. Eating less than 50% of her meals. Patient is being followed by psychiatry, Dr. Watt. Patient was last seen on 12/13/16 for reevaluation of paranoia, likely related to underlying medical condition. Patient was placed on Zyprexa at bedtime. Patient remains afebrile, hypertensive with SBP in the 160s to 180s. Reviewed with patient clinical course and current medical management. Discussed that as per [place] law, her daughter Karolina is serving as healthcare proxy decision maker. Patient tells me that she wouldn't like to put this burden on her daughter as she is very young. Reviewed with patient that she can designated healthcare surrogate, encourage patient to discuss it with her mother and anika Tim. Patient receptive to completing advanced directives tomorrow once she has had the opportunity to talk to her family. . Family/friend interactions No family at bedside. . Advance Directives Living Will: Never completed Health Care Surrogate: Never completed Durable Power of [place] Observer: Never completed Advance Directive Specifics Health Care Surrogate(s): aKrolina daughter: [phone] Jemima, mother: [phone] mini Tim: [phone] Significant change in goals: Goals of care remain unchanged. . Objective Vital Signs Date Time Temp Pulse Resp B/P (MAP) Pulse Ox O2 Delivery O2 Flow Rate FiO2 12/14/16 16:00 98.4 98 22 183/83 (116) 92 12/14/16 16:00 98 12/14/16 14:00 95 12/14/16 13:06 106 168/77 (107) 12/14/16 13:04 102 174/85 (114) 12/14/16 12:56 94 177/78 (111) 12/14/16 12:00 98 12/14/16 12:00 98.1 98 24 187/79 (115) 97 12/14/16 10:00 102 12/14/16 08:00 94 12/14/16 08:00 98.2 94 13 170/81 (110) 94 12/14/16 07:16 96 Nasal Cannula 2.00 12/14/16 06:00 84 12/14/16 04:00 75 12/14/16 04:00 98.4 75 10 148/67 (94) 96 12/14/16 02:00 71 12/14/16 00:00 98.7 68 13 130/58 (82) 95 12/14/16 00:00 68 12/13/16 22:00 79 12/13/16 20:00 98.4 88 15 141/65 (90) 93 12/13/16 20:00 88 12/13/16 18:00 92 Intake & Output 12/14/16 12/14/16 07:00 19:00 Intake Total 832 ml 500 ml Output Total 1750 ml Balance -918 ml 500 ml IV Total 832 ml 500 ml Output Urine Total 1600 ml Stool Total 150 ml Physical Exam CONSTITUTIONAL/GENERAL: This is a chronically ill appearing patient, resting in bed in no acute distress. TUBES/LINES/DRAINS: PIV right, nasal cannula, Ocampo catheter, rectal tube. SKIN: Ecchymoses on upper extremities. Bilateral LE redness and wound to left lateral LE with yellowish drainage/dressing in place. Skin temperature warm. CARDIOVASCULAR: regular rate and rhythm. RESPIRATORY/CHEST: Symmetric, unlabored respirations. Clear to auscultation. Diminished breath sounds bilaterally. GASTROINTESTINAL: Abdomen soft, non-tender, round. No guarding. Bowel sounds present. GENITOURINARY: Without palpable bladder distension. Ocampo catheter in place. MUSCULOSKELETAL: Extremities with erythema and edema. RA-related deformities to bilateral hands. NEUROLOGICAL: Alert and oriented x self, place and situation. Following commands. PSYCHIATRIC: Calm. . Diagnostic Tests Laboratory Laboratory Tests Test 12/11/16 21:13 12/12/16 09:00 12/12/16 19:30 12/13/16 03:49 Potassium Level 3.1 MEQ/L (3.5-5.1) 2.9 MEQ/L (3.5-5.1) 4.2 MEQ/L (3.5-5.1) 3.9 MEQ/L (3.5-5.1) White Blood Count 5.1 TH/MM3 (4.0-11.0) Red Blood Count 3.64 MIL/MM3 (4.00-5.30) Hemoglobin 8.7 GM/DL (11.6-15.3) Hematocrit 27.7 % (35.0-46.0) Mean Corpuscular Volume 76.3 FL (80.0-100.0) Mean Corpuscular Hemoglobin 23.8 PG (27.0-34.0) Mean Corpuscular Hemoglobin Concent 31.3 % (32.0-36.0) Red Cell Distribution Width 18.0 % (11.6-17.2) Platelet Count 215 TH/MM3 (150-450) Mean Platelet Volume 7.8 FL (7.0-11.0) Neutrophils (%) (Auto) 91.2 % (16.0-70.0) Lymphocytes (%) (Auto) 2.5 % (9.0-44.0) Monocytes (%) (Auto) 6.1 % (0.0-8.0) Eosinophils (%) (Auto) 0.0 % (0.0-4.0) Basophils (%) (Auto) 0.2 % (0.0-2.0) Neutrophils # (Auto) 4.7 TH/MM3 (1.8-7.7) Lymphocytes # (Auto) 0.1 TH/MM3 (1.0-4.8) Monocytes # (Auto) 0.3 TH/MM3 (0-0.9) Eosinophils # (Auto) 0.0 TH/MM3 (0-0.4) Basophils # (Auto) 0.0 TH/MM3 (0-0.2) CBC Comment DIFF FINAL Differential Comment Blood Urea Nitrogen 14 MG/DL (7-18) Creatinine 0.35 MG/DL (0.50-1.00) Random Glucose 115 MG/DL (74-106) Total Protein 4.6 GM/DL (6.4-8.2) Calcium Level 7.4 MG/DL (8.5-10.1) Sodium Level 147 MEQ/L (136-145) Chloride Level 117 MEQ/L (98-107) Carbon Dioxide Level 25.0 MEQ/L (21.0-32.0) Anion Gap 5 MEQ/L (5-15) Estimat Glomerular Filtration Rate 200 ML/MIN (>89) Protein Corrected Calcium 8.8 MG/DL (8.5-10.1) Result Diagram: 12/13/16 0349 12/13/16 0349 Procedures * 12/06/16 - lumbar puncture . Assessment and Plan Disease Oriented Problem List: (1) Sepsis (2) Acute metabolic encephalopathy (3) Rheumatoid arthritis (4) Seizure (5) C. difficile colitis (6) Cellulitis (7) Physical deconditioning Symptom Scale: (1) Pain 0-10 Scale: 7 Comment: Generalize pain. (2) Altered mental status 0-10 Scale: Unable to quantify Comment: Improving. (3) Decreased appetite 0-10 Scale: Unable to quantify Comment: Albumin 1.6. Eating small amounts. Pertinent Non-Medical Issues Psychosocial: Supported by her daughter, mini and parents. Spiritual: Unknown. Legal: Patient mental status improving, recommend shared decision making. No known written advanced directives, it has been discussed in the past but nothing was ever signed. According to [place] Statutes, health care medical proxy decision maker falls to majority of adult children. Patient has 1 daughter Karolina, who is willing to serve as health care proxy decision maker. She is supported by Ms. Harris's mother, father, and fiance. Ethical issues impacting care: No known concerns at this time. . Important Contacts Karolina, daughter/HCP: [phone] [place] jose gkamlesh: [phone] Prognosis Ms. Harris is an unfortunate 46 year old with chronic medical comorbidities including RA (chronic steroids), diabetes, etc admitted with altered mental status and sepsis. While she may survive this hospitalization she remains high risk for further decline, repeat infections/ hospitalizations. Code Status: No Code Plan * Decision Maker: Patient mental status improving, patient likely to regain capacity in the near future. At this time, palliative care recommends shared decision making with HCP. No known written advanced directives. According to [place] Statutes, health care medical proxy decision maker falls to majority of adult children. Patient has 1 daughter Karolina, who is willing to serve as health care proxy decision maker. She is supported by Ms. Harris's mother, father, and fiance. * NO CODE * Patient/ Family desires continued aggressive care short of NO CODE. * Patient receptive to completing advanced directives. Palliative care to follow-up for assistance. * SYMPTOMS: Pain: multifactorial, secondary to chronic debility, diabetes, RA, bed/chair bound status, tubes. Currently on Percocet 10/325mg PO TID and gabapentin 800 mg TID for with some relief. Further recommendations at this time given intermittent confusion. =Decreased appetite/oral intake: Albumin 1.6. Patient eating less than 50% of her meals. Patient may benefit from sand carrier consultation. = Debility: Secondary to multiple chronic comorbidities and acute illness. Currently participating with PT. PT and rehabilitation versus home with home health PT has been recommended. * Palliative care contact information has been provided to patient and family. * Palliative care will continue to follow throughout hospital course to assist with symptom management and clarification of goals as needed. . Time Spent Total Floor Time (mins): 26 (Total time to include review medical records, physical exam. ) >50% Counseling/Coord of Care: Yes Attestation To help prompt me to consider important information that might be impacting today's encounter and assessment, information from prior notes written by myself or my colleagues may have been "brought forward" into today's note. My signature on this note, however, is an attestation that I personally performed the exam, history, and/or decision-making noted today, and, unless otherwise indicated, the interactions with patient, family, and staff as well as the review of records all occurred today. I also attest that the listed assessment and stated plan reflect my best clinical judgment today based on the combination of historical information, prior notes, and today's exam/ interactions. When time spent is documented, it refers only to time spent today by the signer, or if indicated, combined time spent today by collaborating physician/nurse practitioner. Teri Carlin Dec 14, 2016 17:45
[2016-12-14] MEDS: INSULIN DETEMIR 100 UNITS/ML VIAL SQ SCH (20:41)
[2016-12-14] MEDS ORDERED: INSULIN DETEMIR 100 UNITS/ML VIAL SQ SCH (21:00)
[2016-12-15] VITALS (13 sets, daily range): BP systolic 152–197; BP diastolic 71–88; PULSE 60–102; RESP 13–28; TEMP 97.6–98.8; O2SAT 93–97
[2016-12-15] MEDS: DILTIAZEM HCL 30 MG TAB PO SCH ×3 (00:52→11:30)
[2016-12-15] MEDS: ACYCLOVIR INJ 600 MG in SODIUM CHLORIDE 0.9% INJ 100 ML IV SCH ×3 (00:52→16:41)
[2016-12-15] MEDS: hydrALAZINE HCL 20 MG/ML VIAL IV PUSH PRN ×3 (02:08→11:30)
[2016-12-15] MEDS: ACETAMINOPHEN 325 MG TAB PO PRN (05:15)
[2016-12-15 05:45] LABS: AUTOMATED NEUTROPHIL # 7.2 TH/MM3 (1.8-7.7); HEMATOCRIT 25.6 % (35.0-46.0); HEMO FLAGS DIFF FINAL; LYMPH % 3.4 % (9.0-44.0); LYMPHOCYTE # 0.3 TH/MM3 (1.0-4.8); MEAN CELL VOLUME 76.4 FL (80.0-100.0); MEAN CORPUSCULAR HEMOGLOBIN 23.7 PG (27.0-34.0); MONO % 5.8 % (0.0-8.0); NEUT % 90.8 % (16.0-70.0); PLATELET COUNT 225 TH/MM3 (150-450); RED BLOOD COUNT 3.35 MIL/MM3 (4.00-5.30); RED CELL DISTRIBUTION WIDTH 17.3 % (11.6-17.2); WHITE BLOOD COUNT 7.9 TH/MM3 (4.0-11.0)
[2016-12-15 05:53] LABS: BICARBONATE 29.5 MEQ/L (21.0-32.0); POTASSIUM 3.5 MEQ/L (3.5-5.1)
[2016-12-15 06:12] LABS: CALCIUM-PROTEIN CORRECTED 9.1 MG/DL (8.5-10.1)
[2016-12-15] MEDS: VANCOMYCIN 500 MG VIAL (FOR ORAL USE ONLY) PO SCH ×4 (07:53→21:43)
[2016-12-15] MEDS: PANTOPRAZOLE SOD 40 MG DELAYED RELEASE TAB PO SCH (07:54)
[2016-12-15] MEDS: GABAPENTIN 400 MG CAP PO SCH ×3 (07:54→17:16)
[2016-12-15] MEDS: CALCIUM CARBONATE 500 MG CHEWABLE TAB CHEW SCH ×2 (07:54→21:42)
[2016-12-15] MEDS: FLUCONAZOLE 100 MG TAB PO SCH (07:54)
[2016-12-15] MEDS: levETIRAcetam 1000 MG INJ 100 ML IV SCH ×2 (07:54→21:42)
[2016-12-15] MEDS: METOPROLOL TARTRATE 50 MG TAB PO SCH (07:54)
[2016-12-15] MEDS: LACTOBACILLUS ACIDOPHILUS TAB PO SCH ×3 (07:54→17:16)
[2016-12-15] MEDS: OLANZapine 5 MG TAB PO SCH (07:55)
[2016-12-15] MEDS: oxyCODONE/ACETAMINOPHEN 10 MG/325 MG TAB PO SCH (07:55)
[2016-12-15] MEDS: CITALOPRAM HYDROBROMIDE 20 MG TAB PO SCH (07:55)
[2016-12-15] MEDS: LEFLUNOMIDE 20 MG TAB PO SCH (07:55)
[2016-12-15] MEDS: INSULIN DETEMIR 100 UNITS/ML VIAL SQ SCH ×2 (07:56→22:16)
[2016-12-15] MEDS: INSULIN ASPART SUPPLEMENTAL SCALE SQ SCH ×4 (08:00→22:16)
[2016-12-15] MEDS ORDERED: OLANZapine 5 MG TAB PO PRN (08:30)
--- NOTE | 2016-12-15 08:32 | HHI.PR ---
Subjective Remarks afeb Objective Vital Signs Date Time Temp Pulse Resp B/P (MAP) Pulse Ox O2 Delivery O2 Flow Rate FiO2 12/15/16 07:31 94 Nasal Cannula 2.00 12/15/16 06:00 72 12/15/16 04:00 98.8 76 16 168/77 (107) 96 12/15/16 04:00 76 12/15/16 02:00 73 12/15/16 00:00 98.6 60 13 152/71 (98) 93 12/15/16 00:00 60 12/14/16 22:00 74 12/14/16 20:00 83 12/14/16 20:00 98.6 81 11 137/66 (89) 88 12/14/16 19:25 92 Nasal Cannula 2.00 12/14/16 18:00 100 12/14/16 16:00 98.4 98 22 183/83 (116) 92 12/14/16 16:00 98 12/14/16 14:00 95 12/14/16 13:06 106 168/77 (107) 12/14/16 13:04 102 174/85 (114) 12/14/16 12:56 94 177/78 (111) 12/14/16 12:00 98 12/14/16 12:00 98.1 98 24 187/79 (115) 97 12/14/16 10:00 102 I/O 12/14/16 12/14/16 12/14/16 12/15/16 12/15/16 12/15/16 07:00 15:00 23:00 07:00 15:00 23:00 Intake Total 832 ml 400 ml 2160 ml 2643 ml Output Total 1750 ml 1000 ml 50 ml Balance -918 ml 400 ml 1160 ml 2593 ml Intake Oral 960 ml IV Total 832 ml 400 ml 1200 ml 2643 ml Output Urine Total 1600 ml 1000 ml Stool Total 150 ml 0 ml 50 ml # Voids 1 5 # Bowel Movements 0 Result Diagram: 12/15/1644412/15/16444 Objective Remarks sleepy now awakens seems a little overmedicated Assessment and Plan Assessment and Plan imp LP 15 wbc but protein markedly inc to 172 68L on abt id on board may be viral encephalitis i think solumedrol day 2 rec send off viral titers if enough csf echo neg eeg some sharps keppra started mra and mrv neg small left TS mri brain 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 ms i think unlikley and viral titers i would keep in icu over weekend plz 12/12/16 much better will taper off solumedrol oob with PT dc acyclovir? i would like to hsv neg vzv pend defer to id on keppra mri no major change some wm changes rim vents no change 12/14/16 better q day legs buckled with stand needs inc PT check standing bp oob fabby ocb pend csf mbp neg igg index mild inc taper off steroids and then will need home dose of 5mg bid or q day prob better rf not very high vzv still pend? why so long? as would like to get off acyclovir fabby 12/15/16 stand bp ok too sleepy now i dec sedating meds will fu with nurse later today dec keppra to 500 bid and could change to po if eating well vzv??? would like to dc acyclovir!!!!! Rg Torrez MD Dec 15, 2016 08:32
[2016-12-15] MEDS: SODIUM CHLORIDE 0.9% FLUSH 10 ML FLUSH IV FLUSH SCH ×2 (09:00→21:42)
[2016-12-15] MEDS: DOCUSATE SODIUM 50 MG/SENNA 8.6 MG TAB PO SCH ×2 (09:00→21:42)
[2016-12-15] MEDS: COLLAGENASE OINT 30 GM TUBE TOPICAL SCH (09:00)
[2016-12-15] MEDS: GENTAMICIN SULFATE 0.1% OINT 15 GM TUBE TOPICAL SCH (09:00)
[2016-12-15] MEDS: hydrALAZINE HCL 10 MG TAB PO PRN ×2 (09:19→16:40)
[2016-12-15 09:21] LABS: VZV PCR SPECIMEN SOURCE CSF
[2016-12-15 09:22] LABS: VZV PCR RESULT <500 COPIES/mL (<500 copies)
[2016-12-15] MEDS: methylPREDNISolone SOD SUCC 125 MG/2 ML VIAL IV SCH (10:27)
[2016-12-15] MEDS: SODIUM CHLOR 0.45% 1000 ML INJ 1,000 ML IV SCH (10:28)
--- NOTE | 2016-12-15 11:03 | HHI.HCPN ---
Met with Ms. Harris for ongoing support and advanced directive follow-up. Ms. Harris is currently sitting up in bedside chair, reports some discomfort relating to multiple past surgeries. Reports she has been in the chair for about 45mins and is ready to get back in bed. Nurse informed after my visit. Ms. Harris is alert, oriented and able to make her needs known. She is appropriate in conversation. Verbalizes a change in speech since this hospitalization, further elaborates it comes and goes. She reports it is almost like a slurred, slowed speech. However, she is easily able to understand. We gently reviewed health care surrogate, living will, and community DNR paperwork. She requests all documents to be left for further review and discussion with her family. Does not wish to complete at this time. She tells me "I know I need to do these things, and I want to, but being in the hospital right now just makes it hard". Offered emotional support. She confirms DNR states and desire to appoint her fiance as primary health care surrogate. She does tell me they are going to be in December, explained per [place] Statues, legal proxy decision making would then fall to him even without completing designation of health care surrogate. Ms. Harris is considering appointing her mother as alternate as she wants to protect her daughter, Karolina , from being burdened with making any decisions as she feels she would feel guilty. Reviewed past conversations they have had as a family. Encouraged her to continue conversations regarding her wishes to all family members and write them down on living will if desired. Ms. Harris is very thankful for visit and ongoing support. She remains hopeful to get out of the hospital soon. Palliative care will continue to follow throughout hospitalization. Michelle Gary, [employer] Dec 15, 2016 11:03
--- NOTE | 2016-12-15 11:29 | HHI.PR ---
Subjective Remarks in no acute distress. slightly lethargic today. has generalized body ache. no fever. BP and blood sugar trend noted. worked with PT today and was out of bed this morning. d/w the RN. Objective Vitals Vital Signs Date Time Temp Pulse Resp B/P (MAP) Pulse Ox O2 Delivery O2 Flow Rate FiO2 12/15/16 10:00 68 12/15/16 08:00 97.6 68 15 197/82 (120) 93 12/15/16 08:00 72 12/15/16 07:31 94 Nasal Cannula 2.00 12/15/16 06:00 72 12/15/16 04:00 98.8 76 16 168/77 (107) 96 12/15/16 04:00 76 12/15/16 02:00 73 12/15/16 00:00 98.6 60 13 152/71 (98) 93 12/15/16 00:00 60 12/14/16 22:00 74 12/14/16 20:00 83 12/14/16 20:00 98.6 81 11 137/66 (89) 88 12/14/16 19:25 92 Nasal Cannula 2.00 12/14/16 18:00 100 12/14/16 16:00 98.4 98 22 183/83 (116) 92 12/14/16 16:00 98 12/14/16 14:00 95 12/14/16 13:06 106 168/77 (107) 12/14/16 13:04 102 174/85 (114) 12/14/16 12:56 94 177/78 (111) 12/14/16 12:00 98 12/14/16 12:00 98.1 98 24 187/79 (115) 97 I/O 12/14/16 12/14/16 12/14/16 12/15/16 12/15/16 12/15/16 07:00 15:00 23:00 07:00 15:00 23:00 Intake Total 832 ml 400 ml 2160 ml 2643 ml Output Total 1750 ml 1000 ml 50 ml Balance -918 ml 400 ml 1160 ml 2593 ml Intake Oral 960 ml IV Total 832 ml 400 ml 1200 ml 2643 ml Output Urine Total 1600 ml 1000 ml Stool Total 150 ml 0 ml 50 ml # Voids 1 5 # Bowel Movements 0 Result Diagram: 12/15/16 0445 12/15/16 0445 Imaging Last Impressions Brain MRI 12/11/16 Signed Impressions: Service Date/Time: Sunday, December 11, 2016 18:08 - CONCLUSION: Stable MRI of the brain. Nonspecific white matter diffuse symmetrical bilateral changes. 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 Caleb Najera MD Head CT 12/10/16 Signed Impressions: Service Date/Time: Saturday, December 10, 2016 02:28 - CONCLUSION: 1. No acute abnormality is seen. 2. White matter demyelination. 3. Small focal area of encephalomalacia at the left cerebellar hemisphere. Marcus Chahal MD Chest X-Ray 12/08/16 Signed Impressions: Service Date/Time: Thursday, December 08, 2016 01:26 - CONCLUSION: 1. Left central line in superior vena cava without pneumothorax. Baljeet Yap MD Neck Ultrasound 12/06/16 Signed Impressions: Service Date/Time: Tuesday, December 06, 2016 08:06 - CONCLUSION: No abscess observed. Ultrasound evaluation for an abscess in this area is very difficult and an abscess can easily be occult by ultrasound evaluation. CT or MRI is more sensitive. Mukul Gary Jr., MD Lumbar Puncture Fluoroscopy 12/06/16 Signed Impressions: Service Date/Time: Tuesday, December 06, 2016 15:52 - CONCLUSION: Uncomplicated fluoroscopically guided lumbar puncture with pressures as above. Rg Paz MD Head/Brain Mag Res Venography 12/06/16 Signed Impressions: Service Date/Time: Tuesday, December 06, 2016 21:13 - CONCLUSION: Limited study. Grossly unremarkable exam. Kenroy Luong MD Head Magnetic Resonance Angiography 12/06/16 Signed Impressions: Service Date/Time: Tuesday, December 06, 2016 21:13 - CONCLUSION: Normal examination for a patient of this age. Kenroy Luong MD Hand X-Ray 12/06/16 Signed Impressions: Service Date/Time: Tuesday, December 06, 2016 20:04 - CONCLUSION: Extensive arthritis throughout the hand and wrist. Kenroy Luong MD Cervical Spine MRI 12/06/16 Signed Impressions: Service Date/Time: Tuesday, December 06, 2016 21:13 - CONCLUSION: Extremely limited MRI of the cervical spine. Kenroy Luong MD Abdomen/Pelvis CT 12/06/16 0000 Signed Impressions: Service Date/Time: Tuesday, December 06, 2016 03:21 - CONCLUSION: No definite acute CT findings in the abdomen or pelvis. Marcus Buchanan MD Objective Remarks GENERAL: This is a well-nourished, well-developed patient, in no apparent distress. CARDIOVASCULAR: Regular rate and regular rhythm without murmurs, gallops, or rubs. RESPIRATORY: Clear to auscultation. Breath sounds equal bilaterally. No wheezes , rales, or rhonchi. GASTROINTESTINAL: Abdomen soft, non-tender, nondistended. Normal, active bowel sounds MUSCULOSKELETAL: Extremities without clubbing, cyanosis, or edema. NEURO: awake and alert. Procedures central line placement. Medications and IVs Current Medications Sodium Chloride 1,000 ml @ 1,000 mls/hr Q1H ONCE IV Last administered on 12/06 02:15; Start 12/06/16 at 02:00; Stop 12/06/16 at 02:59; Status DC Acetaminophen (Tylenol Supp) 650 mg ONCE ONCE RECTAL Last administered on 02:49; Start 12/06/16 at 02:00; Stop 12/06/16 at 02:03; Status DC Piperacillin Sod/ Tazobactam Sod 50 ml @ 100 mls/hr ONCE ONCE IV Last administered on 12/06/16 02:49; Start 12/06/16 at 02:00; Stop 12/06/16 at 02 :29; Status DC Vancomycin HCl 1000 mg/Sodium Chloride 250 ml @ 250 mls/hr ONCE ONCE IV Last administered on 12/06/16 02:58; Start 12/06/16 at 02:00; Stop 12/06/16 at 02 :59; Status DC Lorazepam (Ativan Inj) 1 mg ONCE ONCE IV PUSH Last administered on 12/06/16 03:09; Start 12/06/16 at 03:15; Stop 12/06/16 at 03:16; Status DC Iohexol (Omnipaque 350 Inj) 80 ml STK-MED ONCE IVCONTRAST Last administered on 12/06/16 01:36; Start 12/06/16 at 01:36; Stop 12/06/16 at 03:22; Status DC Sodium Chloride 1,000 ml @ 1,000 mls/hr Q1H ONCE IV Last administered on 12/06 04:13; Start 12/06/16 at 03:53; Stop 12/06/16 at 04:52; Status DC Sodium Chloride 800 ml @ 1,000 mls/hr Q48M ONCE IV Last administered on 04:13; Start 12/06/16 at 03:53; Stop 12/06/16 at 04:41; Status DC Sodium Chloride (NS Flush) 2 ml UNSCH PRN IV FLUSH FLUSH AFTER USING IV ACCESS ; Start 12/06/16 at 04:45 Sodium Chloride (NS Flush) 2 ml BID IV FLUSH Last administered on 12/15/16 09 :00; Start 12/06/16 at 09:00 Naloxone HCl (Narcan Inj) 0.4 mg UNSCH PRN IV PUSH SEE LABEL COMMENTS; Start 12/06/16 at 04:45; Stop 12/06/16 at 09:14; Status DC Pharmacy Profile Note 0 ml @ 0 mls/hr UNSCH OTHER ; Start 12/06/16 at 04:45; Stop 12/11/16 at 14:40; Status DC Piperacillin Sod/ Tazobactam Sod 100 ml @ 200 mls/hr Q6H IV Last administered on 12/11/16 13:26; Start 12/06/16 at 08:00; Stop 12/11/16 at 14:39; Status DC Metoprolol Tartrate (Lopressor) 25 mg ONCE ONCE PO ; Start 12/06/16 at 06:30; Stop 12/06/16 at 06:45; Status DC Diltiazem HCl (Cardizem Inj) 15 mg ONCE ONCE IV Last administered on 06:55; Start 12/06/16 at 06:45; Stop 12/06/16 at 06:51; Status DC Diltiazem HCl (Cardizem Inj) 15 mg Q4H PRN IV HR>120 or BP >160/90 Last administered on 12/09/16 07:52; Start 12/06/16 at 06:45; Stop 12/09/16 at 19 :15; Status DC Diltiazem HCl (Cardizem Inj) 20 mg Q8H IV Last administered on 12/09/16 14:45 ; Start 12/06/16 at 14:00; Stop 12/09/16 at 19:15; Status DC Sodium Chloride 1,000 ml @ 100 mls/hr Q10H IV Last administered on 12/08/16 17:35; Start 12/06/16 at 08:02; Stop 12/08/16 at 21:26; Status DC Sodium Chloride (NS Flush) 2 ml UNSCH PRN IV FLUSH FLUSH AFTER USING IV ACCESS ; Start 12/06/16 at 08:15; Stop 12/06/16 at 09:14; Status DC Sodium Chloride (NS Flush) 2 ml BID IV FLUSH ; Start 12/06/16 at 09:00; Stop 12/06/16 at 09:14; Status DC Acetaminophen (Tylenol) 650 mg Q4H PRN PO TEMP > 100.4 Last administered on 05:15; Start 12/06/16 at 08:15 Ondansetron HCl (Zofran Inj) 4 mg Q6H PRN IVP NAUSEA OR VOMITING; Start at 08:15 Prochlorperazine (Compazine Supp) 25 mg Q12H PRN RECTAL NAUSEA OR VOMITING; Start 12/06/16 at 08:15; Stop 12/06/16 at 16:46; Status DC Acetaminophen (Tylenol) 650 mg Q6H PRN PO PAIN SCALE 1 TO 2; Start 12/06/16 at 08:15 Oxycodone/ Acetaminophen (Percocet 5-325 Mg) 1 tab Q6H PRN PO PAIN SCALE 3 TO 5; Start 12/06/16 at 08:15; Stop 12/06/16 at 16:46; Status DC Oxycodone/ Acetaminophen (Percocet 10-325 Mg) 1 tab Q6H PRN PO PAIN SCALE 6 TO 10 Last administered on 12/06/16 15:14; Start 12/06/16 at 08:15; Stop at 16:46; Status DC Morphine Sulfate (Morphine Inj) 2 mg Q3H PRN IV PUSH Pain 3-5; if unable to take PO Last administered on 12/06/16 09:35; Start 12/06/16 at 08:15; Stop 12/06/16 at 16:46; Status DC Morphine Sulfate (Morphine Inj) 4 mg Q3H PRN IV PUSH Pain 6-10;if unable to take PO Last administered on 12/06/16 16:27; Start 12/06/16 at 08:15; Stop 12/06/16 at 16:46; Status DC Naloxone HCl (Narcan Inj) 0.4 mg UNSCH PRN IV PUSH SEE LABEL COMMENTS; Start 12/06/16 at 08:15 Senna/Docusate Sodium (Shaylee-Colace) 1 tab BID PO Last administered on 20:41; Start 12/06/16 at 09:00 Magnesium Hydroxide (Milk Of Magnesia Liq) 30 ml Q12H PRN PO MILD - MODERATE CONSTIPATION; Start 12/06/16 at 08:15 Sennosides (Senokot) 17.2 mg Q12H PRN PO MODERATE - SEVERE CONSTIPATION; Start 12/06/16 at 08:15 Bisacodyl (Dulcolax Supp) 10 mg DAILY PRN RECTAL SEVERE CONSITIPATION; Start 12/06/16 at 08:15 Lactulose (Lactulose Liq) 30 ml DAILY PRN PO SEVERE CONSITIPATION; Start 12/06 at 08:15 Vancomycin HCl 1250 mg/Sodium Chloride 262.5 ml @ 250 mls/hr Q12H IV Last administered on 12/07/16 08:38; Start 12/06/16 at 12:00; Stop 12/07/16 at 15 :53; Status DC Miscellaneous Information SPECIFIC LAB TO BE DRAWN:VANCOMYCIN TROUGH DATE TO... ONCE ONCE .XX ; Start 12/07/16 at 11:45; Stop 12/07/16 at 11:45; Status DC Metoprolol Tartrate (Lopressor Inj) 5 mg Q6H PRN IV PUSH tachycardia Last administered on 12/09/16 15:11; Start 12/06/16 at 13:00; Stop 12/09/16 at 20 :11; Status DC Insulin Detemir (Levemir Inj) 30 units HS SQ Last administered on 12/13/16 20 :46; Start 12/06/16 at 21:00; Stop 12/14/16 at 11:36; Status DC Acetaminophen (Tylenol Supp) 650 mg Q6H PRN RECTAL FEVER; Start 12/06/16 at 13 :30; Status UNV Metoprolol Tartrate (Lopressor) 50 mg Q12HR PO Last administered on 12/15/16 07:54; Start 12/06/16 at 21:00 Acyclovir Sodium 600 mg/Sodium Chloride 100 ml @ 100 mls/hr Q8H IV Last administered on 12/11/16 16:45; Start 12/06/16 at 17:00; Stop 12/11/16 at 18 :00; Status DC Fluconazole/ Sodium Chloride 50 ml @ 50 mls/hr Q24H IV ; Start 12/06/16 at 16: 00; Stop 12/06/16 at 16:00; Status DC Acetaminophen (Tylenol Supp) 650 mg Q6H PRN RECTAL fevers; Start 12/06/16 at 14:45 Fluconazole/ Sodium Chloride 50 ml @ 50 mls/hr Q24H IV Last administered on 18:24; Start 12/06/16 at 18:00; Stop 12/08/16 at 15:35; Status DC Ampicillin Sodium 2000 mg/Sodium Chloride 100 ml @ 400 mls/hr Q4H IV ; Start 12/06/16 at 17:00; Stop 12/06/16 at 17:16; Status DC Sodium Chloride 1,000 ml @ 75 mls/hr [id number] IV Last administered on 04:20; Start 12/06/16 at 16:41; Stop 12/09/16 at 09:10; Status DC Baclofen (Lioresal) 10 mg Q8HR PRN PO MUSCLE SPASMS; Start 12/06/16 at 17:00; Stop 12/07/16 at 07:30; Status DC Citalopram Hydrobromide (CeleXA) 20 mg DAILY PO Last administered on 07:55; Start 12/07/16 at 09:00 Gabapentin (Neurontin) 800 mg TID PO Last administered on 12/15/16 07:54; Start 12/06/16 at 18:00 Hydroxyzine HCl (Atarax) 50 mg BID PRN PO ITCHING; Start 12/06/16 at 17:00 Oxybutynin Chloride (Ditropan) 5 mg Q12HR PRN PO URGENCY; Start 12/06/16 at 17 :00 Oxycodone/ Acetaminophen (Percocet 10-325 Mg) 1 tab Q6H PRN PO PAIN SCALE 3-10 Last administered on 12/07/16 04:27; Start 12/06/16 at 17:00; Stop 12/07/16 at 07:30; Status DC Leflunomide (Arava) 20 mg DAILY PO Last administered on 12/15/16 07:55; Start 12/07/16 at 09:00 Ampicillin Sodium 2000 mg/Sodium Chloride 100 ml @ 400 mls/hr Q4H IV Last administered on 12/07/16 13:40; Start 12/06/16 at 18:00; Stop 12/07/16 at 18 :21; Status DC Atropine Sulfate (Atropine Inj) 1 mg STK-MED ONCE .ROUTE ; Start 12/06/16 at 20 :46; Stop 12/06/16 at 20:47; Status DC Epinephrine HCl (EPINEPHrine (1:10,000) INJ) 1 mg STK-MED ONCE .ROUTE ; Start 12/06/16 at 20:46; Stop 12/06/16 at 20:47; Status DC Prednisone (Deltasone) 5 mg BID PO Last administered on 12/13/16 21:07; Start 12/07/16 at 09:00; Status Future Hold Prednisone (Deltasone) 5 mg ONCE ONCE PO ; Start 12/06/16 at 23:15; Stop 01/12 at 23:16; Status DC Enoxaparin Sodium (Lovenox Inj) 40 mg Q24H SQ ; Start 12/07/16 at 09:00; Stop 12/07/16 at 09:00; Status DC Pantoprazole Sodium (Protonix) 40 mg DAILY PO Last administered on 12/15/16 07:54; Start 12/07/16 at 09:00 Baclofen (Lioresal) 5 mg BID PRN PO MUSCLE SPASMS; Start 12/07/16 at 07:30 Methylprednisolone Sodium Succinate (SoluMEDROL INJ) 1,000 mg Q24H IV ; Start 12/07/16 at 07:30; Stop 12/07/16 at 07:35; Status DC Methylprednisolone Sodium Succinate 1000 mg/Dextrose 116 ml @ 232 mls/hr Q24H IV Last administered on 12/11/16 08:38; Start 12/07/16 at 09:00; Stop 12/12 at 08:02; Status DC Miscellaneous (Pill Splitter) 1 ea UNSCH PRN OTHER SEE LABEL COMMENTS; Start 12/07/16 at 07:45 Dextrose (D50w (Vial) Inj) 50 ml UNSCH PRN IV PUSH HYPOGLYCEMIA-SEE COMMENTS; Start 12/07/16 at 11:30; Stop 12/09/16 at 19:17; Status DC Glucagon (Glucagon Inj) 1 mg UNSCH PRN OTHER HYPOGLYCEMIA-SEE COMMENTS; Start 12/07/16 at 11:30; Stop 12/10/16 at 07:17; Status DC Levetriacetam 100 ml @ 400 mls/hr Q12HR IV Last administered on 12/15/16 07: 54; Start 12/07/16 at 14:00 Vancomycin HCl 1250 mg/Sodium Chloride 262.5 ml @ 250 mls/hr Q12H IV Last administered on 12/07/16 20:21; Start 12/07/16 at 21:00; Stop 12/09/16 at 15 :24; Status DC Miscellaneous Information SPECIFIC LAB TO BE HALLE... ONCE ONCE .XX ; Start at 08:45; Stop 12/08/16 at 08:46; Status DC Dextrose (D50w (Vial) Inj) 50 ml UNSCH PRN IV PUSH HYPOGLYCEMIA-SEE COMMENTS; Start 12/07/16 at 18:15 Glucagon (Glucagon Inj) 1 mg UNSCH PRN OTHER HYPOGLYCEMIA-SEE COMMENTS; Start 12/07/16 at 18:15 Insulin Aspart (NovoLOG SUPPLEMENTAL SCALE) 1 ACHS SLIDING SCALE SQ Last administered on 12/14/16 20:42; Start 12/07/16 at 21:00 Sodium Chloride 1,000 ml @ 999 mls/hr BOLUS ONCE IV Last administered on 02:00; Start 12/08/16 at 02:00; Stop 12/08/16 at 03:00; Status DC Metronidazole 100 ml @ 100 mls/hr Q8H IV Last administered on 12/08/16 12:50 ; Start 12/08/16 at 05:00; Stop 12/08/16 at 15:35; Status DC Lactobacillus Acidophilus (Lactinex) 1 tab TID PO Last administered on 07:54; Start 12/08/16 at 09:00 Furosemide (Lasix Inj) 20 mg ONCE ONCE IV PUSH Last administered on 05:49; Start 12/08/16 at 05:30; Stop 12/08/16 at 05:40; Status DC Potassium Chloride 100 ml @ 50 mls/hr Q2H PRN IV For Potassium 2.8 - 3.2 mEq/ L Last administered on 12/12/16 11:33; Start 12/08/16 at 09:30 Potassium Chloride 100 ml @ 50 mls/hr Q2H PRN IV For Potassium 2.8 - 3.2 mEq/L ; Start 12/08/16 at 09:30 Potassium Bicarb/ Potassium Chloride (K-Lyte Cl Eff) 50 meq UNSCH PRN PO For Potassium 3.3 - 3.5 mEq/L; Start 12/08/16 at 09:30 Potassium Chloride 100 ml @ 25 mls/hr UNSCH PRN IV For Potassium 3.3 - 3.5 mEq /L Last administered on 12/11/16 06:15; Start 12/08/16 at 09:30 Potassium Chloride 100 ml @ 50 mls/hr Q2H PRN IV For Potassium 3.3 - 3.5 mEq/L ; Start 12/08/16 at 09:30 Magnesium Sulfate 4 gm/Sodium Chloride 100 ml @ 50 mls/hr UNSCH PRN IV For Magnesium 0.9 - 1.1 mg/dL; Start 12/08/16 at 09:30 Magnesium Oxide (Mag-Ox) 800 mg UNSCH PRN PO For Magnesium 1.2 - 1.6 mg/dL; Start 12/08/16 at 09:30 Magnesium Sulfate 2 gm/Sodium Chloride 100 ml @ 50 mls/hr UNSCH PRN IV For Magnesium 1.2 - 1.6 mg/dL; Start 12/08/16 at 09:30 Potassium Phosphate (K-Phos) 2,000 mg Q4H PRN PO For Phosphorus < 2.5 mg/dL; Start 12/08/16 at 09:30 Sodium Phosphate 30 mmol/Sodium Chloride 250 ml @ 42 mls/hr UNSCH PRN IV For Phosphorus < 2.5 mg/dL; Start 12/08/16 at 09:30 Potassium Phosphate (K-Phos) 2,000 mg UNSCH PRN PO/TUBE SEE LABEL COMMENTS; Start 12/08/16 at 09:30 Potassium Phosphate 30 mmol/ Sodium Chloride 260 ml @ 42 mls/hr UNSCH PRN IV SEE LABEL COMMENTS; Start 12/08/16 at 09:30 Calcium Gluconate 1 gm/Sodium Chloride 110 ml @ 110 mls/hr ONCE ONCE IV Last administered on 12/08/16 12:50; Start 12/08/16 at 12:00; Stop 12/08/16 at 12 :59; Status DC Fluconazole (Diflucan) 100 mg DAILY PO Last administered on 12/15/16 07:54; Start 12/09/16 at 09:00 Vancomycin HCl (VANCOMYCIN for oral use only) 125 mg QID PO Last administered on 12/15/16 07:53; Start 12/08/16 at 18:00 Sodium Chloride 1,000 ml @ 84 mls/hr [id number] IV Last administered on 10:28; Start 12/09/16 at 09:30 Hydralazine HCl (Apresoline Inj) 20 mg Q4H PRN IV PUSH SBP>170, DBP>90 Last administered on 12/09/16 12:05; Start 12/09/16 at 10:00; Stop 12/09/16 at 20 :11; Status DC Hydralazine HCl (Apresoline) 10 mg Q6HR PRN PO SBP>160, DBP>90 Last administered on 12/15/16 09:19; Start 12/09/16 at 10:00 Enalaprilat (Vasotec Inj) 2.5 mg Q6H PRN IV PUSH SBP>160, DBP>90 Last administered on 12/12/16 00:15; Start 12/09/16 at 09:15 Calcium Carbonate (Tums Chew) 500 mg Q12HR CHEW Last administered on 07:54; Start 12/09/16 at 09:15 Magnesium Oxide (Mag-Ox) 400 mg DAILY@1100 PO Last administered on 12/10/16 09:56; Start 12/09/16 at 11:00; Stop 12/12/16 at 10:59; Status DC Potassium Chloride (KCl) 20 meq DAILY PO Last administered on 12/12/16 09:25 ; Start 12/09/16 at 09:30; Stop 12/12/16 at 09:29; Status DC Vancomycin HCl 1250 mg/Sodium Chloride 262.5 ml @ 250 mls/hr Q12H IV Last administered on 12/11/16 04:25; Start 12/09/16 at 16:00; Stop 12/11/16 at 10 :30; Status DC Miscellaneous Information SPECIFIC LAB TO BE DRAWN:VANCO DATE TO... ONCE ONCE .XX Last administered on 12/11/16 03:45; Start 12/11/16 at 03:45; Stop at 03:46; Status DC Lorazepam (Ativan Inj) 2 mg STK-MED ONCE .ROUTE ; Start 12/09/16 at 16:08; Stop 12/09/16 at 16:09; Status DC Oxycodone/ Acetaminophen (Percocet 10-325 Mg) 1 tab TID PO Last administered on 12/15/16 07:55; Start 12/09/16 at 18:00; Stop 12/15/16 at 08:30; Status DC Lorazepam (Ativan Inj) 1 mg BID PRN IV AGITATION; Start 12/09/16 at 16:15; Stop 12/15/16 at 08:30; Status DC Clonidine (Catapres) 0.1 mg NOW ONCE PO Last administered on 12/09/16 19:15 ; Start 12/09/16 at 19:15; Stop 12/09/16 at 19:16; Status DC Flumazenil (Romazicon Inj) 0.5 mg STK-MED ONCE .ROUTE Last administered on 21:01; Start 12/09/16 at 21:01; Stop 12/09/16 at 21:02; Status DC Diltiazem HCl (Cardizem Inj) 20 mg Q8HR IV Last administered on 12/13/16 06: 37; Start 12/09/16 at 22:00; Stop 12/13/16 at 10:04; Status DC Hydralazine HCl (Apresoline Inj) 20 mg Q4H PRN IV PUSH SBP>160, DBP>90 Last administered on 12/15/16 05:27; Start 12/09/16 at 21:30 Sodium Chloride 250 ml @ 15 mls/hr ONCE ONCE IV Last administered on 02:30; Start 12/10/16 at 02:30; Stop 12/10/16 at 03:27; Status DC Iron Sucrose 100 mg/Sodium Chloride 105 ml @ 105 mls/hr DAILY IV Last administered on 12/12/16 10:04; Start 12/10/16 at 09:00; Stop 12/12/16 at 09 :59; Status DC Olanzapine (ZyPREXA) 5 mg Q12HR PO Last administered on 12/15/16 07:55; Start 12/10/16 at 14:45; Stop 12/15/16 at 08:30; Status DC Vancomycin HCl 1000 mg/Sodium Chloride 250 ml @ 250 mls/hr Q12H IV ; Start at 18:00; Stop 12/11/16 at 18:00; Status DC Miscellaneous Information SPECIFIC LAB TO BE DRAWN:VANCOMY... ONCE ONCE .XX ; Start 12/13/16 at 05:45; Stop 12/13/16 at 05:45; Status DC Ceftriaxone Sodium 2000 mg/ Sodium Chloride 100 ml @ 200 mls/hr Q24H IV Last administered on 12/14/16 14:44; Start 12/11/16 at 15:00; Stop 12/15/16 at 23 :55 Acyclovir Sodium 600 mg/Sodium Chloride 100 ml @ 100 mls/hr Q8H IV Last administered on 12/15/16 10:27; Start 12/12/16 at 01:00 Gadodiamide (Omniscan Pf Inj) 17 ml STK-MED ONCE IV PUSH Last administered on 12/11/16 18:56; Start 12/11/16 at 18:56; Stop 12/11/16 at 18:57; Status DC Epinephrine HCl (EPINEPHrine (1:10,000) INJ) 2 mg STK-MED ONCE .ROUTE ; Start 12/11/16 at 19:39; Stop 12/11/16 at 19:40; Status DC Methylprednisolone Sodium Succinate 200 mg/Dextrose 103.2 ml @ 232 mls/hr Q24H IV Last administered on 12/13/16 10:26; Start 12/12/16 at 09:00; Stop 12/14 at 07:55; Status DC Alteplase, Recombinant (Cathflo Activase Inj) 2 mg NOW ONCE IV FLUSH Last administered on 12/12/16 17:21; Start 12/12/16 at 17:15; Stop 12/12/16 at 17 :16; Status DC Alteplase, Recombinant (Cathflo Activase Inj) 2 mg ONCE PRN IV FLUSH IF FIRST DOSE INEFFECTIVE Last administered on 12/12/16 21:29; Start 12/12/16 at 17:15 ; Stop 12/12/16 at 21:29; Status DC Diltiazem HCl (Cardizem) 30 mg Q6HR PO Last administered on 12/15/16 05:14; Start 12/13/16 at 12:00 Collagenase (Santyl Oint) 1 applic DAILY TOPICAL Last administered on 10:11; Start 12/13/16 at 18:00 Gentamicin Sulfate (Gentamicin 0.1% Oint) 1 applic DAILY TOPICAL Last administered on 12/14/16 10:11; Start 12/13/16 at 18:00 Methylprednisolone Sodium Succinate 50 mg/Dextrose 100.8 ml @ 232 mls/hr Q24H IV Last administered on 12/14/16 12:05; Start 12/14/16 at 10:00; Stop 12/14 at 21:45; Status DC Prednisone (Deltasone) 5 mg DAILY@0600 PO ; Start 12/17/16 at 06:00 Insulin Detemir (Levemir Inj) 25 units HS SQ ; Start 12/14/16 at 21:00; Stop 12/14/16 at 21:00; Status DC Insulin Detemir (Levemir Inj) 10 units Q12HR SQ Last administered on 07:56; Start 12/14/16 at 21:00 Methylprednisolone Sodium Succinate (SoluMEDROL INJ) 50 mg Q24H IV Last administered on 12/15/16 10:27; Start 12/15/16 at 10:00; Stop 12/16/16 at 10 :01 Olanzapine (ZyPREXA) 5 mg Q12HR PRN PO AGITATION AND/OR HALLUCINATION; Start 12/15/16 at 08:30 Oxycodone/ Acetaminophen (Percocet 10-325 Mg) 1 tab TID PRN PO PAIN SCALE 3 TO 6; Start 12/15/16 at 08:30 A/P Problem List: (1) Sepsis ICD Code: A41.9 - Sepsis, unspecified organism (2) Acute metabolic encephalopathy ICD Code: G93.41 - Metabolic encephalopathy (3) Cellulitis ICD Code: L03.90 - Cellulitis, unspecified Assessment and Plan A/P Sepsis, source possible BLE cellulitis and meningoencephalitis . patient with RA on immunosuppressive Rx. LP was done and poss viral meningitis/encephalitis. Also possible vasculitis per neuro , work up in progress. -repeated MRI brain stable. -continue IV Rocephin, Acyclovir- continue diflucan and po vanco. -on IV steroids; being tapered down. -Neck soft tissue US no abscess -Blood cultures negative so far. -VZV PCR negative. -awaiting ID follow-up and recommendations. - Pt also has chronic on and off diarrhea C diff - hx of cdiff sepsis. Positive C diff this admission treat with vanco per ID Hypokalemia. replaced. Acute metabolic encephalopathy, poss due to sepsis- slightly lethargic today. minimize sedatives/narcotics. Head CT reviewed and shows white matter hypodensity, due to artifact unknown if chronic repeated MRI brain stable. psych consult appreciated; started on Zyprexa neurology following. Seizure, started levetiracetam. EEG reviewed -Neuro checks -neurology following. Urinary retention- UA normal Abdominal CT reviewed and shows no acute disease -Cont barajas and strict I&Os Hypertension: stop po cardizem and start on metoprolol- hydralazine prn. continue to monitor and will adjust the regimen as needed. Anemia , iron deficient. received Venofer IV. Monitor H/H transfuse if HGB< 7 Chronic diarrhea, hx of c diff -C diff positive. DC'ed flagyl as might worsen encephalopathy, started vanco per ID RA, chronic -on Leflunomide and prednisone. Severe protein calorie malnutrition: low albumin. 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 diabetes mellitus; noted 3 am accu-check 46 decrease levemir to 10 units subq q12 hrs-and continue with sliding scale coverage. continue to monitor and adjust the regimen as needed. DVT prophylaxis: SCDs transfer to telemetry when ok with neurology. dc central line- will switch to peripheral access. continue PT. d/w the RN. Problem Qualifiers (1) Sepsis: Qualified Codes: A41.9 - Sepsis, unspecified organism Tamika Bonds MD Dec 15, 2016 11:29
[2016-12-15] MEDS: cefTRIAXone INJ 2,000 MG in SODIUM CHLORIDE 0.9% INJ 100 ML IV SCH (13:07)
[2016-12-15] MEDS: METOPROLOL TARTRATE 25 MG TAB PO SCH (21:42)
[2016-12-15] MEDS: ENALAPRILAT 2.5 MG/2 ML VIAL IV PUSH PRN (21:43)
[2016-12-15] MEDS: oxyCODONE/ACETAMINOPHEN 10 MG/325 MG TAB PO PRN (22:17)
[2016-12-16] VITALS (9 sets, daily range): BP systolic 122–196; BP diastolic 71–91; PULSE 81–100; RESP 16–20; TEMP 96.9–98.8; O2SAT 92–99
[2016-12-16] MEDS: INSULIN ASPART SUPPLEMENTAL SCALE SQ SCH ×4 (08:00→20:59)
[2016-12-16] MEDS: LEFLUNOMIDE 20 MG TAB PO SCH (09:00)
[2016-12-16] MEDS: INSULIN DETEMIR 100 UNITS/ML VIAL SQ SCH ×2 (09:00→20:59)
[2016-12-16] MEDS: COLLAGENASE OINT 30 GM TUBE TOPICAL SCH (09:00)
[2016-12-16] MEDS: SODIUM CHLORIDE 0.9% FLUSH 10 ML FLUSH IV FLUSH SCH ×2 (09:00→20:58)
[2016-12-16] MEDS: GENTAMICIN SULFATE 0.1% OINT 15 GM TUBE TOPICAL SCH (09:00)
[2016-12-16] MEDS: levETIRAcetam 1000 MG INJ 100 ML IV SCH ×2 (09:09→20:58)
[2016-12-16] MEDS: CALCIUM CARBONATE 500 MG CHEWABLE TAB CHEW SCH ×2 (09:09→20:58)
[2016-12-16] MEDS: GABAPENTIN 400 MG CAP PO SCH ×3 (09:09→17:44)
[2016-12-16] MEDS: LACTOBACILLUS ACIDOPHILUS TAB PO SCH ×3 (09:09→17:44)
[2016-12-16] MEDS: METOPROLOL TARTRATE 25 MG TAB PO SCH ×2 (09:09→20:59)
[2016-12-16] MEDS: DOCUSATE SODIUM 50 MG/SENNA 8.6 MG TAB PO SCH ×2 (09:09→20:58)
[2016-12-16] MEDS: FLUCONAZOLE 100 MG TAB PO SCH (09:09)
[2016-12-16] MEDS: CITALOPRAM HYDROBROMIDE 20 MG TAB PO SCH (09:09)
[2016-12-16] MEDS: PANTOPRAZOLE SOD 40 MG DELAYED RELEASE TAB PO SCH (09:09)
[2016-12-16] MEDS: ENALAPRILAT 2.5 MG/2 ML VIAL IV PUSH PRN (09:10)
[2016-12-16] MEDS: VANCOMYCIN 500 MG VIAL (FOR ORAL USE ONLY) PO SCH ×4 (09:10→20:58)
[2016-12-16] MEDS: oxyCODONE/ACETAMINOPHEN 10 MG/325 MG TAB PO PRN ×2 (09:29→21:24)
[2016-12-16] MEDS: methylPREDNISolone SOD SUCC 125 MG/2 ML VIAL IV SCH (09:29)
--- NOTE | 2016-12-16 11:56 | HHI.PR ---
Subjective Remarks in no acute distress. complaining of generalized body ache. remains afebrile. BP and blood sugar trend noted. no other complaints. d/w the RN. Objective Vitals Vital Signs Date Time Temp Pulse Resp B/P (MAP) Pulse Ox O2 Delivery O2 Flow Rate FiO2 12/16/16 07:57 96.9 87 20 196/91 (126) 99 12/16/16 02:33 171/81 (111) 12/16/16 02:00 92 12/16/16 00:03 98.1 86 16 185/75 (111) 92 12/15/16 20:25 98.0 98 17 195/88 (123) 97 12/15/16 18:00 98.1 102 16 162/75 (104) 94 12/15/16 16:39 98.0 79 24 168/78 (108) 93 12/15/16 16:00 68 12/15/16 14:00 68 12/15/16 12:00 68 12/15/16 12:00 97.7 68 28 163/84 (110) 95 I/O 12/15/16 12/15/16 12/15/16 12/16/16 12/16/16 12/16/16 07:00 15:00 23:00 07:00 15:00 23:00 Intake Total 2643 ml 300 ml 480 ml 480 ml 120 ml Output Total 50 ml 100 ml Balance 2593 ml 300 ml 480 ml 380 ml 120 ml Intake Oral 380 ml 480 ml 120 ml IV Total 2643 ml 300 ml 100 ml Stool Total 50 ml 100 ml # Voids 5 4 4 Result Diagram: 12/15/16 0445 12/15/16 0445 Imaging Last Impressions Brain MRI 12/11/16 0000 Signed Impressions: Service Date/Time: Sunday, December 11, 2016 18:08 - CONCLUSION: Stable MRI of the brain. Nonspecific white matter diffuse symmetrical bilateral changes. 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 Caleb Najera MD Head CT 12/10/16 0000 Signed Impressions: Service Date/Time: Saturday, December 10, 2016 02:28 - CONCLUSION: 1. No acute abnormality is seen. 2. White matter demyelination. 3. Small focal area of encephalomalacia at the left cerebellar hemisphere. Marcus Chahal MD Chest X-Ray 12/08/16 0000 Signed Impressions: Service Date/Time: Thursday, December 08, 2016 01:26 - CONCLUSION: 1. Left central line in superior vena cava without pneumothorax. Baljeet Yap MD Neck Ultrasound 12/06/16 Signed Impressions: Service Date/Time: Tuesday, December 06, 2016 08:06 - CONCLUSION: No abscess observed. Ultrasound evaluation for an abscess in this area is very difficult and an abscess can easily be occult by ultrasound evaluation. CT or MRI is more sensitive. Mukul Gary Jr., MD Lumbar Puncture Fluoroscopy 12/06/16 Signed Impressions: Service Date/Time: Tuesday, December 06, 2016 15:52 - CONCLUSION: Uncomplicated fluoroscopically guided lumbar puncture with pressures as above. Rg Paz MD Head/Brain Mag Res Venography 12/06/16 Signed Impressions: Service Date/Time: Tuesday, December 06, 2016 21:13 - CONCLUSION: Limited study. Grossly unremarkable exam. Kenroy Luong MD Head Magnetic Resonance Angiography 12/06/16 Signed Impressions: Service Date/Time: Tuesday, December 06, 2016 21:13 - CONCLUSION: Normal examination for a patient of this age. Kenroy Luong MD Hand X-Ray 12/06/16 Signed Impressions: Service Date/Time: Tuesday, December 06, 2016 20:04 - CONCLUSION: Extensive arthritis throughout the hand and wrist. Kenroy Luong MD Cervical Spine MRI 12/06/16 Signed Impressions: Service Date/Time: Tuesday, December 06, 2016 21:13 - CONCLUSION: Extremely limited MRI of the cervical spine. Kenroy Luong MD Abdomen/Pelvis CT 12/06/16 Signed Impressions: Service Date/Time: Tuesday, December 06, 2016 03:21 - CONCLUSION: No definite acute CT findings in the abdomen or pelvis. Marcus Buchanan MD Objective Remarks GENERAL: This is a well-nourished, well-developed patient, in no apparent distress. CARDIOVASCULAR: Regular rate and regular rhythm without murmurs, gallops, or rubs. RESPIRATORY: Clear to auscultation. Breath sounds equal bilaterally. No wheezes , rales, or rhonchi. GASTROINTESTINAL: Abdomen soft, non-tender, nondistended. Normal, active bowel sounds MUSCULOSKELETAL: Extremities without clubbing, cyanosis, or edema. NEURO: awake and alert. Procedures central line placement. Medications and IVs Current Medications Sodium Chloride 1,000 ml @ 1,000 mls/hr Q1H ONCE IV Last administered on 12/06 02:15; Start 12/06/16 at 02:00; Stop 12/06/16 at 02:59; Status DC Acetaminophen (Tylenol Supp) 650 mg ONCE ONCE RECTAL Last administered on 02:49; Start 12/06/16 at 02:00; Stop 12/06/16 at 02:03; Status DC Piperacillin Sod/ Tazobactam Sod 50 ml @ 100 mls/hr ONCE ONCE IV Last administered on 12/06/16 02:49; Start 12/06/16 at 02:00; Stop 12/06/16 at 02 :29; Status DC Vancomycin HCl 1000 mg/Sodium Chloride 250 ml @ 250 mls/hr ONCE ONCE IV Last administered on 12/06/16 02:58; Start 12/06/16 at 02:00; Stop 12/06/16 at 02 :59; Status DC Lorazepam (Ativan Inj) 1 mg ONCE ONCE IV PUSH Last administered on 12/06/16 03:09; Start 12/06/16 at 03:15; Stop 12/06/16 at 03:16; Status DC Iohexol (Omnipaque 350 Inj) 80 ml STK-MED ONCE IVCONTRAST Last administered on 12/06/16 01:36; Start 12/06/16 at 01:36; Stop 12/06/16 at 03:22; Status DC Sodium Chloride 1,000 ml @ 1,000 mls/hr Q1H ONCE IV Last administered on 12/06 04:13; Start 12/06/16 at 03:53; Stop 12/06/16 at 04:52; Status DC Sodium Chloride 800 ml @ 1,000 mls/hr Q48M ONCE IV Last administered on 04:13; Start 12/06/16 at 03:53; Stop 12/06/16 at 04:41; Status DC Sodium Chloride (NS Flush) 2 ml UNSCH PRN IV FLUSH FLUSH AFTER USING IV ACCESS ; Start 12/06/16 at 04:45 Sodium Chloride (NS Flush) 2 ml BID IV FLUSH Last administered on 12/16/16 09 :00; Start 12/06/16 at 09:00 Naloxone HCl (Narcan Inj) 0.4 mg UNSCH PRN IV PUSH SEE LABEL COMMENTS; Start 12/06/16 at 04:45; Stop 12/06/16 at 09:14; Status DC Pharmacy Profile Note 0 ml @ 0 mls/hr UNSCH OTHER ; Start 12/06/16 at 04:45; Stop 12/11/16 at 14:40; Status DC Piperacillin Sod/ Tazobactam Sod 100 ml @ 200 mls/hr Q6H IV Last administered on 12/11/16 13:26; Start 12/06/16 at 08:00; Stop 12/11/16 at 14:39; Status DC Metoprolol Tartrate (Lopressor) 25 mg ONCE ONCE PO ; Start 12/06/16 at 06:30; Stop 12/06/16 at 06:45; Status DC Diltiazem HCl (Cardizem Inj) 15 mg ONCE ONCE IV Last administered on 06:55; Start 12/06/16 at 06:45; Stop 12/06/16 at 06:51; Status DC Diltiazem HCl (Cardizem Inj) 15 mg Q4H PRN IV HR>120 or BP >160/90 Last administered on 12/09/16 07:52; Start 12/06/16 at 06:45; Stop 12/09/16 at 19 :15; Status DC Diltiazem HCl (Cardizem Inj) 20 mg Q8H IV Last administered on 12/09/16 14:45 ; Start 12/06/16 at 14:00; Stop 12/09/16 at 19:15; Status DC Sodium Chloride 1,000 ml @ 100 mls/hr Q10H IV Last administered on 12/08/16 17:35; Start 12/06/16 at 08:02; Stop 12/08/16 at 21:26; Status DC Sodium Chloride (NS Flush) 2 ml UNSCH PRN IV FLUSH FLUSH AFTER USING IV ACCESS ; Start 12/06/16 at 08:15; Stop 12/06/16 at 09:14; Status DC Sodium Chloride (NS Flush) 2 ml BID IV FLUSH ; Start 12/06/16 at 09:00; Stop 12/06/16 at 09:14; Status DC Acetaminophen (Tylenol) 650 mg Q4H PRN PO TEMP > 100.4 Last administered on 05:15; Start 12/06/16 at 08:15 Ondansetron HCl (Zofran Inj) 4 mg Q6H PRN IVP NAUSEA OR VOMITING; Start at 08:15 Prochlorperazine (Compazine Supp) 25 mg Q12H PRN RECTAL NAUSEA OR VOMITING; Start 12/06/16 at 08:15; Stop 12/06/16 at 16:46; Status DC Acetaminophen (Tylenol) 650 mg Q6H PRN PO PAIN SCALE 1 TO 2; Start 12/06/16 at 08:15 Oxycodone/ Acetaminophen (Percocet 5-325 Mg) 1 tab Q6H PRN PO PAIN SCALE 3 TO 5; Start 12/06/16 at 08:15; Stop 12/06/16 at 16:46; Status DC Oxycodone/ Acetaminophen (Percocet 10-325 Mg) 1 tab Q6H PRN PO PAIN SCALE 6 TO 10 Last administered on 12/06/16 15:14; Start 12/06/16 at 08:15; Stop at 16:46; Status DC Morphine Sulfate (Morphine Inj) 2 mg Q3H PRN IV PUSH Pain 3-5; if unable to take PO Last administered on 12/06/16 09:35; Start 12/06/16 at 08:15; Stop 12/06/16 at 16:46; Status DC Morphine Sulfate (Morphine Inj) 4 mg Q3H PRN IV PUSH Pain 6-10;if unable to take PO Last administered on 12/06/16 16:27; Start 12/06/16 at 08:15; Stop 12/06/16 at 16:46; Status DC Naloxone HCl (Narcan Inj) 0.4 mg UNSCH PRN IV PUSH SEE LABEL COMMENTS; Start 12/06/16 at 08:15 Senna/Docusate Sodium (Shaylee-Colace) 1 tab BID PO Last administered on 09:09; Start 12/06/16 at 09:00 Magnesium Hydroxide (Milk Of Magnesia Liq) 30 ml Q12H PRN PO MILD - MODERATE CONSTIPATION; Start 12/06/16 at 08:15 Sennosides (Senokot) 17.2 mg Q12H PRN PO MODERATE - SEVERE CONSTIPATION; Start 12/06/16 at 08:15 Bisacodyl (Dulcolax Supp) 10 mg DAILY PRN RECTAL SEVERE CONSITIPATION; Start 12/06/16 at 08:15 Lactulose (Lactulose Liq) 30 ml DAILY PRN PO SEVERE CONSITIPATION; Start 12/06 at 08:15 Vancomycin HCl 1250 mg/Sodium Chloride 262.5 ml @ 250 mls/hr Q12H IV Last administered on 12/07/16 08:38; Start 12/06/16 at 12:00; Stop 12/07/16 at 15 :53; Status DC Miscellaneous Information SPECIFIC LAB TO BE DRAWN:VANCOMYCIN TROUGH DATE TO... ONCE ONCE .XX ; Start 12/07/16 at 11:45; Stop 12/07/16 at 11:45; Status DC Metoprolol Tartrate (Lopressor Inj) 5 mg Q6H PRN IV PUSH tachycardia Last administered on 12/09/16 15:11; Start 12/06/16 at 13:00; Stop 12/09/16 at 20 :11; Status DC Insulin Detemir (Levemir Inj) 30 units HS SQ Last administered on 12/13/16 20 :46; Start 12/06/16 at 21:00; Stop 12/14/16 at 11:36; Status DC Acetaminophen (Tylenol Supp) 650 mg Q6H PRN RECTAL FEVER; Start 12/06/16 at 13 :30; Status UNV Metoprolol Tartrate (Lopressor) 50 mg Q12HR PO Last administered on 12/15/16 07:54; Start 12/06/16 at 21:00; Stop 12/15/16 at 11:48; Status DC Acyclovir Sodium 600 mg/Sodium Chloride 100 ml @ 100 mls/hr Q8H IV Last administered on 12/11/16 16:45; Start 12/06/16 at 17:00; Stop 12/11/16 at 18 :00; Status DC Fluconazole/ Sodium Chloride 50 ml @ 50 mls/hr Q24H IV ; Start 12/06/16 at 16: 00; Stop 12/06/16 at 16:00; Status DC Acetaminophen (Tylenol Supp) 650 mg Q6H PRN RECTAL fevers; Start 12/06/16 at 14:45 Fluconazole/ Sodium Chloride 50 ml @ 50 mls/hr Q24H IV Last administered on 18:24; Start 12/06/16 at 18:00; Stop 12/08/16 at 15:35; Status DC Ampicillin Sodium 2000 mg/Sodium Chloride 100 ml @ 400 mls/hr Q4H IV ; Start 12/06/16 at 17:00; Stop 12/06/16 at 17:16; Status DC Sodium Chloride 1,000 ml @ 75 mls/hr [id number] IV Last administered on 04:20; Start 12/06/16 at 16:41; Stop 12/09/16 at 09:10; Status DC Baclofen (Lioresal) 10 mg Q8HR PRN PO MUSCLE SPASMS; Start 12/06/16 at 17:00; Stop 12/07/16 at 07:30; Status DC Citalopram Hydrobromide (CeleXA) 20 mg DAILY PO Last administered on 09:09; Start 12/07/16 at 09:00 Gabapentin (Neurontin) 800 mg TID PO Last administered on 12/16/16 09:09; Start 12/06/16 at 18:00 Hydroxyzine HCl (Atarax) 50 mg BID PRN PO ITCHING; Start 12/06/16 at 17:00 Oxybutynin Chloride (Ditropan) 5 mg Q12HR PRN PO URGENCY; Start 12/06/16 at 17 :00 Oxycodone/ Acetaminophen (Percocet 10-325 Mg) 1 tab Q6H PRN PO PAIN SCALE 3-10 Last administered on 12/07/16 04:27; Start 12/06/16 at 17:00; Stop 12/07/16 at 07:30; Status DC Leflunomide (Arava) 20 mg DAILY PO Last administered on 12/16/16 09:00; Start 12/07/16 at 09:00 Ampicillin Sodium 2000 mg/Sodium Chloride 100 ml @ 400 mls/hr Q4H IV Last administered on 12/07/16 13:40; Start 12/06/16 at 18:00; Stop 12/07/16 at 18 :21; Status DC Atropine Sulfate (Atropine Inj) 1 mg STK-MED ONCE .ROUTE ; Start 12/06/16 at 20 :46; Stop 12/06/16 at 20:47; Status DC Epinephrine HCl (EPINEPHrine (1:10,000) INJ) 1 mg STK-MED ONCE .ROUTE ; Start 12/06/16 at 20:46; Stop 12/06/16 at 20:47; Status DC Prednisone (Deltasone) 5 mg BID PO Last administered on 12/13/16 21:07; Start 12/07/16 at 09:00; Status Future Hold Prednisone (Deltasone) 5 mg ONCE ONCE PO ; Start 12/06/16 at 23:15; Stop 01/12 at 23:16; Status DC Enoxaparin Sodium (Lovenox Inj) 40 mg Q24H SQ ; Start 12/07/16 at 09:00; Stop 12/07/16 at 09:00; Status DC Pantoprazole Sodium (Protonix) 40 mg DAILY PO Last administered on 12/16/16 09:09; Start 12/07/16 at 09:00 Baclofen (Lioresal) 5 mg BID PRN PO MUSCLE SPASMS; Start 12/07/16 at 07:30 Methylprednisolone Sodium Succinate (SoluMEDROL INJ) 1,000 mg Q24H IV ; Start 12/07/16 at 07:30; Stop 12/07/16 at 07:35; Status DC Methylprednisolone Sodium Succinate 1000 mg/Dextrose 116 ml @ 232 mls/hr Q24H IV Last administered on 12/11/16 08:38; Start 12/07/16 at 09:00; Stop 12/12 at 08:02; Status DC Miscellaneous (Pill Splitter) 1 ea UNSCH PRN OTHER SEE LABEL COMMENTS; Start 12/07/16 at 07:45 Dextrose (D50w (Vial) Inj) 50 ml UNSCH PRN IV PUSH HYPOGLYCEMIA-SEE COMMENTS; Start 12/07/16 at 11:30; Stop 12/09/16 at 19:17; Status DC Glucagon (Glucagon Inj) 1 mg UNSCH PRN OTHER HYPOGLYCEMIA-SEE COMMENTS; Start 12/07/16 at 11:30; Stop 12/10/16 at 07:17; Status DC Levetriacetam 100 ml @ 400 mls/hr Q12HR IV Last administered on 12/16/16 09: 09; Start 12/07/16 at 14:00 Vancomycin HCl 1250 mg/Sodium Chloride 262.5 ml @ 250 mls/hr Q12H IV Last administered on 12/07/16 20:21; Start 12/07/16 at 21:00; Stop 12/09/16 at 15 :24; Status DC Miscellaneous Information SPECIFIC LAB TO BE HALLE... ONCE ONCE .XX ; Start at 08:45; Stop 12/08/16 at 08:46; Status DC Dextrose (D50w (Vial) Inj) 50 ml UNSCH PRN IV PUSH HYPOGLYCEMIA-SEE COMMENTS; Start 12/07/16 at 18:15 Glucagon (Glucagon Inj) 1 mg UNSCH PRN OTHER HYPOGLYCEMIA-SEE COMMENTS; Start 12/07/16 at 18:15 Insulin Aspart (NovoLOG SUPPLEMENTAL SCALE) 1 ACHS SLIDING SCALE SQ Last administered on 12/15/16 22:16; Start 12/07/16 at 21:00 Sodium Chloride 1,000 ml @ 999 mls/hr BOLUS ONCE IV Last administered on 02:00; Start 12/08/16 at 02:00; Stop 12/08/16 at 03:00; Status DC Metronidazole 100 ml @ 100 mls/hr Q8H IV Last administered on 12/08/16 12:50 ; Start 12/08/16 at 05:00; Stop 12/08/16 at 15:35; Status DC Lactobacillus Acidophilus (Lactinex) 1 tab TID PO Last administered on 09:09; Start 12/08/16 at 09:00 Furosemide (Lasix Inj) 20 mg ONCE ONCE IV PUSH Last administered on 05:49; Start 12/08/16 at 05:30; Stop 12/08/16 at 05:40; Status DC Potassium Chloride 100 ml @ 50 mls/hr Q2H PRN IV For Potassium 2.8 - 3.2 mEq/ L Last administered on 12/12/16 11:33; Start 12/08/16 at 09:30; Stop at 09:31; Status DC Potassium Chloride 100 ml @ 50 mls/hr Q2H PRN IV For Potassium 2.8 - 3.2 mEq/L ; Start 12/08/16 at 09:30; Stop 12/16/16 at 09:31; Status DC Potassium Bicarb/ Potassium Chloride (K-Lyte Cl Eff) 50 meq UNSCH PRN PO For Potassium 3.3 - 3.5 mEq/L; Start 12/08/16 at 09:30; Stop 12/16/16 at 09:31; Status DC Potassium Chloride 100 ml @ 25 mls/hr UNSCH PRN IV For Potassium 3.3 - 3.5 mEq /L Last administered on 12/11/16t 06:15; Start 12/08/16 at 09:30; Stop at 09:31; Status DC Potassium Chloride 100 ml @ 50 mls/hr Q2H PRN IV For Potassium 3.3 - 3.5 mEq/L ; Start 12/08/16 at 09:30; Stop 12/16/16 at 09:31; Status DC Magnesium Sulfate 4 gm/Sodium Chloride 100 ml @ 50 mls/hr UNSCH PRN IV For Magnesium 0.9 - 1.1 mg/dL; Start 12/08/16 at 09:30; Stop 12/16/16 at 09:31; Status DC Magnesium Oxide (Mag-Ox) 800 mg UNSCH PRN PO For Magnesium 1.2 - 1.6 mg/dL; Start 12/08/16 at 09:30; Stop 12/16/16 at 09:31; Status DC Magnesium Sulfate 2 gm/Sodium Chloride 100 ml @ 50 mls/hr UNSCH PRN IV For Magnesium 1.2 - 1.6 mg/dL; Start 12/08/16 at 09:30; Stop 12/16/16 at 09:31; Status DC Potassium Phosphate (K-Phos) 2,000 mg Q4H PRN PO For Phosphorus < 2.5 mg/dL; Start 12/08/16 at 09:30; Stop 12/16/16 at 09:31; Status DC Sodium Phosphate 30 mmol/Sodium Chloride 250 ml @ 42 mls/hr UNSCH PRN IV For Phosphorus < 2.5 mg/dL; Start 12/08/16 at 09:30; Stop 12/16/16 at 09:31; Status DC Potassium Phosphate (K-Phos) 2,000 mg UNSCH PRN PO/TUBE SEE LABEL COMMENTS; Start 12/08/16 at 09:30; Stop 12/16/16 at 09:31; Status DC Potassium Phosphate 30 mmol/ Sodium Chloride 260 ml @ 42 mls/hr UNSCH PRN IV SEE LABEL COMMENTS; Start 12/08/16 at 09:30; Stop 12/16/16 at 09:31; Status DC Calcium Gluconate 1 gm/Sodium Chloride 110 ml @ 110 mls/hr ONCE ONCE IV Last administered on 12/08/16 12:50; Start 12/08/16 at 12:00; Stop 12/08/16 at 12 :59; Status DC Fluconazole (Diflucan) 100 mg DAILY PO Last administered on 12/16/16 09:09; Start 12/09/16 at 09:00 Vancomycin HCl (VANCOMYCIN for oral use only) 125 mg QID PO Last administered on 12/16/16 09:10; Start 12/08/16 at 18:00 Sodium Chloride 1,000 ml @ 84 mls/hr [id number] IV Last administered on 10:28; Start 12/09/16 at 09:30; Status Future Hold Hydralazine HCl (Apresoline Inj) 20 mg Q4H PRN IV PUSH SBP>170, DBP>90 Last administered on 12/09/16 12:05; Start 12/09/16 at 10:00; Stop 12/09/16 at 20 :11; Status DC Hydralazine HCl (Apresoline) 10 mg Q6HR PRN PO SBP>160, DBP>90 Last administered on 12/15/16 16:40; Start 12/09/16 at 10:00 Enalaprilat (Vasotec Inj) 2.5 mg Q6H PRN IV PUSH SBP>160, DBP>90 Last administered on 12/16/16 09:10; Start 12/09/16 at 09:15 Calcium Carbonate (Tums Chew) 500 mg Q12HR CHEW Last administered on 09:09; Start 12/09/16 at 09:15 Magnesium Oxide (Mag-Ox) 400 mg DAILY@1100 PO Last administered on 12/10/16 09:56; Start 12/09/16 at 11:00; Stop 12/12/16 at 10:59; Status DC Potassium Chloride (KCl) 20 meq DAILY PO Last administered on 12/12/16 09:25 ; Start 12/09/16 at 09:30; Stop 12/12/16 at 09:29; Status DC Vancomycin HCl 1250 mg/Sodium Chloride 262.5 ml @ 250 mls/hr Q12H IV Last administered on 12/11/16 04:25; Start 12/09/16 at 16:00; Stop 12/11/16 at 10 :30; Status DC Miscellaneous Information SPECIFIC LAB TO BE DRAWN:VANCO DATE TO... ONCE ONCE .XX Last administered on 12/11/16 03:45; Start 12/11/16 at 03:45; Stop at 03:46; Status DC Lorazepam (Ativan Inj) 2 mg STK-MED ONCE .ROUTE ; Start 12/09/16 at 16:08; Stop 12/09/16 at 16:09; Status DC Oxycodone/ Acetaminophen (Percocet 10-325 Mg) 1 tab TID PO Last administered on 12/15/16 07:55; Start 12/09/16 at 18:00; Stop 12/15/16 at 08:30; Status DC Lorazepam (Ativan Inj) 1 mg BID PRN IV AGITATION; Start 12/09/16 at 16:15; Stop 12/15/16 at 08:30; Status DC Clonidine (Catapres) 0.1 mg NOW ONCE PO Last administered on 12/09/16 19:15 ; Start 12/09/16 at 19:15; Stop 12/09/16 at 19:16; Status DC Flumazenil (Romazicon Inj) 0.5 mg STK-MED ONCE .ROUTE Last administered on 21:01; Start 12/09/16 at 21:01; Stop 12/09/16 at 21:02; Status DC Diltiazem HCl (Cardizem Inj) 20 mg Q8HR IV Last administered on 12/13/16 06: 37; Start 12/09/16 at 22:00; Stop 12/13/16 at 10:04; Status DC Hydralazine HCl (Apresoline Inj) 20 mg Q4H PRN IV PUSH SBP>160, DBP>90 Last administered on 10/20/17at 11:30; Start 12/09/16 at 21:30 Sodium Chloride 250 ml @ 15 mls/hr ONCE ONCE IV Last administered on 02:30; Start 12/10/16 at 02:30; Stop 12/10/16 at 03:27; Status DC Iron Sucrose 100 mg/Sodium Chloride 105 ml @ 105 mls/hr DAILY IV Last administered on 12/12/16 10:04; Start 12/10/16 at 09:00; Stop 12/12/16 at 09 :59; Status DC Olanzapine (ZyPREXA) 5 mg Q12HR PO Last administered on 12/15/16 07:55; Start 12/10/16 at 14:45; Stop 12/15/16 at 08:30; Status DC Vancomycin HCl 1000 mg/Sodium Chloride 250 ml @ 250 mls/hr Q12H IV ; Start at 18:00; Stop 12/11/16 at 18:00; Status DC Miscellaneous Information SPECIFIC LAB TO BE DRAWN:VANCOMY... ONCE ONCE .XX ; Start 12/13/16 at 05:45; Stop 12/13/16 at 05:45; Status DC Ceftriaxone Sodium 2000 mg/ Sodium Chloride 100 ml @ 200 mls/hr Q24H IV Last administered on 12/15/16 13:07; Start 12/11/16 at 15:00; Stop 12/15/16 at 23 :55; Status DC Acyclovir Sodium 600 mg/Sodium Chloride 100 ml @ 100 mls/hr Q8H IV Last administered on 12/15/16 16:41; Start 12/12/16 at 01:00; Stop 12/15/16 at 16 :37; Status DC Gadodiamide (Omniscan Pf Inj) 17 ml STK-MED ONCE IV PUSH Last administered on 12/11/16 18:56; Start 12/11/16 at 18:56; Stop 12/11/16 at 18:57; Status DC Epinephrine HCl (EPINEPHrine (1:10,000) INJ) 2 mg STK-MED ONCE .ROUTE ; Start 12/11/16 at 19:39; Stop 12/11/16 at 19:40; Status DC Methylprednisolone Sodium Succinate 200 mg/Dextrose 103.2 ml @ 232 mls/hr Q24H IV Last administered on 12/13/16 10:26; Start 12/12/16 at 09:00; Stop 12/14 at 07:55; Status DC Alteplase, Recombinant (Cathflo Activase Inj) 2 mg NOW ONCE IV FLUSH Last administered on 12/12/16 17:21; Start 12/12/16 at 17:15; Stop 12/12/16 at 17 :16; Status DC Alteplase, Recombinant (Cathflo Activase Inj) 2 mg ONCE PRN IV FLUSH IF FIRST DOSE INEFFECTIVE Last administered on 12/12/16 21:29; Start 12/12/16 at 17:15 ; Stop 12/12/16 at 21:29; Status DC Diltiazem HCl (Cardizem) 30 mg Q6HR PO Last administered on 12/15/16 11:30; Start 12/13/16 at 12:00; Stop 12/15/16 at 11:32; Status DC Collagenase (Santyl Oint) 1 applic DAILY TOPICAL Last administered on 09:00; Start 12/13/16 at 18:00 Gentamicin Sulfate (Gentamicin 0.1% Oint) 1 applic DAILY TOPICAL Last administered on 12/16/16 09:00; Start 12/13/16 at 18:00 Methylprednisolone Sodium Succinate 50 mg/Dextrose 100.8 ml @ 232 mls/hr Q24H IV Last administered on 12/14/16 12:05; Start 12/14/16 at 10:00; Stop 12/14 at 21:45; Status DC Prednisone (Deltasone) 5 mg DAILY@0600 PO ; Start 12/17/16 at 06:00 Insulin Detemir (Levemir Inj) 25 units HS SQ ; Start 12/14/16 at 21:00; Stop 12/14/16 at 21:00; Status DC Insulin Detemir (Levemir Inj) 10 units Q12HR SQ Last administered on 09:00; Start 12/14/16 at 21:00 Methylprednisolone Sodium Succinate (SoluMEDROL INJ) 50 mg Q24H IV Last administered on 12/16/16 09:29; Start 12/15/16 at 10:00; Stop 12/16/16 at 10 :01; Status DC Olanzapine (ZyPREXA) 5 mg Q12HR PRN PO AGITATION AND/OR HALLUCINATION; Start 12/15/16 at 08:30 Oxycodone/ Acetaminophen (Percocet 10-325 Mg) 1 tab TID PRN PO PAIN SCALE 3 TO 6 Last administered on 12/16/16 09:29; Start 12/15/16 at 08:30 Metoprolol Tartrate (Lopressor) 25 mg Q12HR PO Last administered on 12/16/16 09:09; Start 12/15/16 at 21:00 Amlodipine Besylate (Norvasc) 10 mg DAILY ONCE PO Last administered on 18:38; Start 12/15/16 at 17:53; Stop 12/15/16 at 17:54; Status DC A/P Problem List: (1) Sepsis ICD Code: A41.9 - Sepsis, unspecified organism (2) Acute metabolic encephalopathy ICD Code: G93.41 - Metabolic encephalopathy (3) Cellulitis ICD Code: L03.90 - Cellulitis, unspecified Assessment and Plan A/P Sepsis, source possible BLE cellulitis and meningoencephalitis . patient with RA on immunosuppressive Rx. LP was done and poss viral meningitis/encephalitis. Also possible vasculitis per neuro , work up in progress. -repeated MRI brain stable. -antibiotics were discontinued- per ID. -stopped IV steroids. -Neck soft tissue US no abscess -Blood cultures negative so far. -VZV PCR negative. -neurology following. -evaluated by ID. - Pt also has chronic on and off diarrhea C diff - hx of cdiff sepsis. Positive C diff this admission treat with vanco per ID Hypokalemia. replaced. Acute metabolic encephalopathy, poss due to sepsis- slightly lethargic today. minimize sedatives/narcotics. Head CT reviewed and shows white matter hypodensity, due to artifact unknown if chronic repeated MRI brain stable. psych consult appreciated; started on Zyprexa neurology following. Seizure, started levetiracetam. EEG reviewed -Neuro checks -neurology following. Urinary retention-resolved UA normal Abdominal CT reviewed and shows no acute disease Hypertension: contyinue metoprolol- one dose of procardia today. continue to monitor and will adjust the regimen as needed. Anemia , iron deficient. received Venofer IV. Monitor H/H transfuse if HGB< 7 Chronic diarrhea, hx of c diff -C diff positive. DC'ed flagyl as might worsen encephalopathy, started vanco per ID RA, chronic -on Leflunomide and prednisone. Severe protein calorie malnutrition: low albumin. Consulted allergist/immunologist. diabetes mellitus with hypoglycemic episode. decrease levemir to 8 units subq q12 hrs- continue with sliding scale coverage. continue to monitor and adjust the regimen as needed. DVT prophylaxis: SCDs continue PT. Problem Qualifiers (1) Sepsis: Qualified Codes: A41.9 - Sepsis, unspecified organism Tamika Bonds MD Dec 16, 2016 11:56
[2016-12-16] MEDS ORDERED: NIFEdipine 30 MG SUSTAINED RELEASE TAB PO ONE (12:15)
[2016-12-17] VITALS (7 sets, daily range): BP systolic 137–190; BP diastolic 75–97; PULSE 85–102; RESP 18–20; TEMP 97.3–97.9; O2SAT 95–97
[2016-12-17] MEDS: ENALAPRILAT 2.5 MG/2 ML VIAL IV PUSH PRN (00:57)
[2016-12-17] MEDS: predniSONE 5 MG TAB PO SCH (05:01)
[2016-12-17] MEDS: INSULIN ASPART SUPPLEMENTAL SCALE SQ SCH ×4 (08:00→20:57)
[2016-12-17] MEDS: DOCUSATE SODIUM 50 MG/SENNA 8.6 MG TAB PO SCH ×3 (08:07→20:40)
[2016-12-17] MEDS: LACTOBACILLUS ACIDOPHILUS TAB PO SCH ×3 (08:07→17:44)
[2016-12-17] MEDS: CITALOPRAM HYDROBROMIDE 20 MG TAB PO SCH (08:07)
[2016-12-17] MEDS: FLUCONAZOLE 100 MG TAB PO SCH (08:07)
[2016-12-17] MEDS: levETIRAcetam 1000 MG INJ 100 ML IV SCH ×2 (08:07→20:56)
[2016-12-17] MEDS: METOPROLOL TARTRATE 25 MG TAB PO SCH ×2 (08:07→20:40)
[2016-12-17] MEDS: GABAPENTIN 400 MG CAP PO SCH ×3 (08:07→17:44)
[2016-12-17] MEDS: PANTOPRAZOLE SOD 40 MG DELAYED RELEASE TAB PO SCH (08:07)
[2016-12-17] MEDS: CALCIUM CARBONATE 500 MG CHEWABLE TAB CHEW SCH ×2 (08:07→20:40)
[2016-12-17] MEDS: COLLAGENASE OINT 30 GM TUBE TOPICAL SCH (08:08)
[2016-12-17] MEDS: SODIUM CHLORIDE 0.9% FLUSH 10 ML FLUSH IV FLUSH SCH ×2 (08:08→20:43)
[2016-12-17] MEDS: LEFLUNOMIDE 20 MG TAB PO SCH (08:08)
[2016-12-17] MEDS: VANCOMYCIN 500 MG VIAL (FOR ORAL USE ONLY) PO SCH ×4 (08:08→20:40)
[2016-12-17] MEDS: INSULIN DETEMIR 100 UNITS/ML VIAL SQ SCH ×2 (08:08→20:57)
[2016-12-17] MEDS: GENTAMICIN SULFATE 0.1% OINT 15 GM TUBE TOPICAL SCH (08:09)
[2016-12-17] MEDS: oxyCODONE/ACETAMINOPHEN 10 MG/325 MG TAB PO PRN ×3 (08:21→20:45)
[2016-12-17 08:33] LABS: AUTOMATED NEUTROPHIL # 7.2 TH/MM3 (1.8-7.7); BASOPHIL % 0.2 % (0.0-2.0); EOSINOPHIL # 0.1 TH/MM3 (0-0.4); EOSINOPHIL % 0.9 % (0.0-4.0); HEMATOCRIT 31.9 % (35.0-46.0); HEMO FLAGS DIFF FINAL; LYMPH % 9.8 % (9.0-44.0); LYMPHOCYTE # 0.9 TH/MM3 (1.0-4.8); MEAN CELL VOLUME 77.6 FL (80.0-100.0); MEAN CORPUSCULAR HEMOGLOBIN 24.4 PG (27.0-34.0); MEAN CORPUSCULAR HGB CONC 31.4 % (32.0-36.0); NEUT % 81.1 % (16.0-70.0); PLATELET COUNT 257 TH/MM3 (150-450); RED BLOOD COUNT 4.11 MIL/MM3 (4.00-5.30); RED CELL DISTRIBUTION WIDTH 18.1 % (11.6-17.2); WHITE BLOOD COUNT 8.9 TH/MM3 (4.0-11.0)
[2016-12-17 09:08] LABS: BICARBONATE 35.2 MEQ/L (21.0-32.0); POTASSIUM 3.3 MEQ/L (3.5-5.1)
[2016-12-17] MEDS ORDERED: POTASSIUM CHLORIDE 10 MEQ CONTROLLED RELEASE TAB PO ONE (10:00)
--- NOTE | 2016-12-17 10:00 | HHI.PR ---
Subjective Remarks in no distress. but uncomfortable with generalized body ache. no fever. had some urinary incontinence. BP and blood sugar trend noted. d/w the RN. Objective Vitals Vital Signs Date Time Temp Pulse Resp B/P (MAP) Pulse Ox O2 Delivery O2 Flow Rate FiO2 12/17/16 08:00 97.3 90 20 190/97 (128) 96 12/17/16 02:10 152/80 (104) 12/17/16 00:48 97.4 85 18 186/87 (120) 95 12/16/16 21:35 97.5 100 18 192/91 (124) 93 12/16/16 19:43 Nasal Cannula 2.00 12/16/16 16:00 98.8 81 20 122/71 (88) 97 12/16/16 12:03 187/81 (116) 12/16/16 12:00 96.9 82 19 187/89 (121) 95 12/16/16 10:40 97 Nasal Cannula 3.00 I/O 12/16/16 12/16/16 12/16/16 12/17/16 12/17/16 12/17/16 07:00 15:00 23:00 07:00 15:00 23:00 Intake Total 480 ml 220 ml 850 ml 240 ml Output Total 100 ml 800 ml Balance 380 ml 220 ml 50 ml 240 ml Intake Oral 480 ml 120 ml 750 ml 240 ml IV Total 100 ml 100 ml Output Urine Total 700 ml Stool Total 100 ml 100 ml # Voids 4 5 Result Diagram: 12/17/16 0730 12/17/16 0730 Imaging Last Impressions Brain MRI 12/11/16 0000 Signed Impressions: Service Date/Time: Sunday, December 11, 2016 18:08 - CONCLUSION: Stable MRI of the brain. Nonspecific white matter diffuse symmetrical bilateral changes. 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 Caleb Najera MD Head CT 12/10/16 0000 Signed Impressions: Service Date/Time: Saturday, December 10, 2016 02:28 - CONCLUSION: 1. No acute abnormality is seen. 2. White matter demyelination. 3. Small focal area of encephalomalacia at the left cerebellar hemisphere. Marcus Chahal MD Chest X-Ray 12/08/16 0000 Signed Impressions: Service Date/Time: Thursday, December 08, 2016 01:26 - CONCLUSION: 1. Left central line in superior vena cava without pneumothorax. Baljeet Yap MD Neck Ultrasound 12/06/16 Signed Impressions: Service Date/Time: Tuesday, December 06, 2016 08:06 - CONCLUSION: No abscess observed. Ultrasound evaluation for an abscess in this area is very difficult and an abscess can easily be occult by ultrasound evaluation. CT or MRI is more sensitive. Mukul Gary Jr., MD Lumbar Puncture Fluoroscopy 12/06/16 Signed Impressions: Service Date/Time: Tuesday, December 06, 2016 15:52 - CONCLUSION: Uncomplicated fluoroscopically guided lumbar puncture with pressures as above. Rg Paz MD Head/Brain Mag Res Venography 12/06/16 Signed Impressions: Service Date/Time: Tuesday, December 06, 2016 21:13 - CONCLUSION: Limited study. Grossly unremarkable exam. Kenroy Luong MD Head Magnetic Resonance Angiography 12/06/16 Signed Impressions: Service Date/Time: Tuesday, December 06, 2016 21:13 - CONCLUSION: Normal examination for a patient of this age. Kenroy Luong MD Hand X-Ray 12/06/16 Signed Impressions: Service Date/Time: Tuesday, December 06, 2016 20:04 - CONCLUSION: Extensive arthritis throughout the hand and wrist. Kenroy Luong MD Cervical Spine MRI 12/06/16 Signed Impressions: Service Date/Time: Tuesday, December 06, 2016 21:13 - CONCLUSION: Extremely limited MRI of the cervical spine. Kenroy Luong MD Abdomen/Pelvis CT 12/06/16 Signed Impressions: Service Date/Time: Tuesday, December 06, 2016 03:21 - CONCLUSION: No definite acute CT findings in the abdomen or pelvis. Marcus Buchanan MD Objective Remarks GENERAL: This is a well-nourished, well-developed patient, in no apparent distress. CARDIOVASCULAR: Regular rate and regular rhythm without murmurs, gallops, or rubs. RESPIRATORY: Clear to auscultation. Breath sounds equal bilaterally. No wheezes , rales, or rhonchi. GASTROINTESTINAL: Abdomen soft, non-tender, nondistended. Normal, active bowel sounds MUSCULOSKELETAL: Extremities without clubbing, cyanosis, or edema. NEURO: awake and alert. Procedures central line placement. Medications and IVs Current Medications Sodium Chloride 1,000 ml @ 1,000 mls/hr Q1H ONCE IV Last administered on 12/06 02:15; Start 12/06/16 at 02:00; Stop 12/06/16 at 02:59; Status DC Acetaminophen (Tylenol Supp) 650 mg ONCE ONCE RECTAL Last administered on 02:49; Start 12/06/16 at 02:00; Stop 12/06/16 at 02:03; Status DC Piperacillin Sod/ Tazobactam Sod 50 ml @ 100 mls/hr ONCE ONCE IV Last administered on 12/06/16 02:49; Start 12/06/16 at 02:00; Stop 12/06/16 at 02 :29; Status DC Vancomycin HCl 1000 mg/Sodium Chloride 250 ml @ 250 mls/hr ONCE ONCE IV Last administered on 12/06/16 02:58; Start 12/06/16 at 02:00; Stop 12/06/16 at 02 :59; Status DC Lorazepam (Ativan Inj) 1 mg ONCE ONCE IV PUSH Last administered on 12/06/16 03:09; Start 12/06/16 at 03:15; Stop 12/06/16 at 03:16; Status DC Iohexol (Omnipaque 350 Inj) 80 ml STK-MED ONCE IVCONTRAST Last administered on 12/06/16 01:36; Start 12/06/16 at 01:36; Stop 12/06/16 at 03:22; Status DC Sodium Chloride 1,000 ml @ 1,000 mls/hr Q1H ONCE IV Last administered on 12/06 04:13; Start 12/06/16 at 03:53; Stop 12/06/16 at 04:52; Status DC Sodium Chloride 800 ml @ 1,000 mls/hr Q48M ONCE IV Last administered on 04:13; Start 12/06/16 at 03:53; Stop 12/06/16 at 04:41; Status DC Sodium Chloride (NS Flush) 2 ml UNSCH PRN IV FLUSH FLUSH AFTER USING IV ACCESS ; Start 12/06/16 at 04:45 Sodium Chloride (NS Flush) 2 ml BID IV FLUSH Last administered on 12/17/16 08 :08; Start 12/06/16 at 09:00 Naloxone HCl (Narcan Inj) 0.4 mg UNSCH PRN IV PUSH SEE LABEL COMMENTS; Start 12/06/16 at 04:45; Stop 12/06/16 at 09:14; Status DC Pharmacy Profile Note 0 ml @ 0 mls/hr UNSCH OTHER ; Start 12/06/16 at 04:45; Stop 12/11/16 at 14:40; Status DC Piperacillin Sod/ Tazobactam Sod 100 ml @ 200 mls/hr Q6H IV Last administered on 12/11/16 13:26; Start 12/06/16 at 08:00; Stop 12/11/16 at 14:39; Status DC Metoprolol Tartrate (Lopressor) 25 mg ONCE ONCE PO ; Start 12/06/16 at 06:30; Stop 12/06/16 at 06:45; Status DC Diltiazem HCl (Cardizem Inj) 15 mg ONCE ONCE IV Last administered on 06:55; Start 12/06/16 at 06:45; Stop 12/06/16 at 06:51; Status DC Diltiazem HCl (Cardizem Inj) 15 mg Q4H PRN IV HR>120 or BP >160/90 Last administered on 12/09/16 07:52; Start 12/06/16 at 06:45; Stop 12/09/16 at 19 :15; Status DC Diltiazem HCl (Cardizem Inj) 20 mg Q8H IV Last administered on 12/09/16 14:45 ; Start 12/06/16 at 14:00; Stop 12/09/16 at 19:15; Status DC Sodium Chloride 1,000 ml @ 100 mls/hr Q10H IV Last administered on 12/08/16 17:35; Start 12/06/16 at 08:02; Stop 12/08/16 at 21:26; Status DC Sodium Chloride (NS Flush) 2 ml UNSCH PRN IV FLUSH FLUSH AFTER USING IV ACCESS ; Start 12/06/16 at 08:15; Stop 12/06/16 at 09:14; Status DC Sodium Chloride (NS Flush) 2 ml BID IV FLUSH ; Start 12/06/16 at 09:00; Stop 12/06/16 at 09:14; Status DC Acetaminophen (Tylenol) 650 mg Q4H PRN PO TEMP > 100.4 Last administered on 05:15; Start 12/06/16 at 08:15 Ondansetron HCl (Zofran Inj) 4 mg Q6H PRN IVP NAUSEA OR VOMITING; Start at 08:15 Prochlorperazine (Compazine Supp) 25 mg Q12H PRN RECTAL NAUSEA OR VOMITING; Start 12/06/16 at 08:15; Stop 12/06/16 at 16:46; Status DC Acetaminophen (Tylenol) 650 mg Q6H PRN PO PAIN SCALE 1 TO 2; Start 12/06/16 at 08:15 Oxycodone/ Acetaminophen (Percocet 5-325 Mg) 1 tab Q6H PRN PO PAIN SCALE 3 TO 5; Start 12/06/16 at 08:15; Stop 12/06/16 at 16:46; Status DC Oxycodone/ Acetaminophen (Percocet 10-325 Mg) 1 tab Q6H PRN PO PAIN SCALE 6 TO 10 Last administered on 12/06/16 15:14; Start 12/06/16 at 08:15; Stop at 16:46; Status DC Morphine Sulfate (Morphine Inj) 2 mg Q3H PRN IV PUSH Pain 3-5; if unable to take PO Last administered on 12/06/16 09:35; Start 12/06/16 at 08:15; Stop 12/06/16 at 16:46; Status DC Morphine Sulfate (Morphine Inj) 4 mg Q3H PRN IV PUSH Pain 6-10;if unable to take PO Last administered on 12/06/16 16:27; Start 12/06/16 at 08:15; Stop 12/06/16 at 16:46; Status DC Naloxone HCl (Narcan Inj) 0.4 mg UNSCH PRN IV PUSH SEE LABEL COMMENTS; Start 12/06/16 at 08:15 Senna/Docusate Sodium (Shaylee-Colace) 1 tab BID PO Last administered on 20:58; Start 12/06/16 at 09:00 Magnesium Hydroxide (Milk Of Magnesia Liq) 30 ml Q12H PRN PO MILD - MODERATE CONSTIPATION; Start 12/06/16 at 08:15 Sennosides (Senokot) 17.2 mg Q12H PRN PO MODERATE - SEVERE CONSTIPATION; Start 12/06/16 at 08:15 Bisacodyl (Dulcolax Supp) 10 mg DAILY PRN RECTAL SEVERE CONSITIPATION; Start 12/06/16 at 08:15 Lactulose (Lactulose Liq) 30 ml DAILY PRN PO SEVERE CONSITIPATION; Start 12/06 at 08:15 Vancomycin HCl 1250 mg/Sodium Chloride 262.5 ml @ 250 mls/hr Q12H IV Last administered on 12/07/16 08:38; Start 12/06/16 at 12:00; Stop 12/07/16 at 15 :53; Status DC Miscellaneous Information SPECIFIC LAB TO BE DRAWN:VANCOMYCIN TROUGH DATE TO... ONCE ONCE .XX ; Start 12/07/16 at 11:45; Stop 12/07/16 at 11:45; Status DC Metoprolol Tartrate (Lopressor Inj) 5 mg Q6H PRN IV PUSH tachycardia Last administered on 12/09/16 15:11; Start 12/06/16 at 13:00; Stop 12/09/16 at 20 :11; Status DC Insulin Detemir (Levemir Inj) 30 units HS SQ Last administered on 12/13/16 20 :46; Start 12/06/16 at 21:00; Stop 12/14/16 at 11:36; Status DC Acetaminophen (Tylenol Supp) 650 mg Q6H PRN RECTAL FEVER; Start 12/06/16 at 13 :30; Status UNV Metoprolol Tartrate (Lopressor) 50 mg Q12HR PO Last administered on 12/15/16 07:54; Start 12/06/16 at 21:00; Stop 12/15/16 at 11:48; Status DC Acyclovir Sodium 600 mg/Sodium Chloride 100 ml @ 100 mls/hr Q8H IV Last administered on 12/11/16 16:45; Start 12/06/16 at 17:00; Stop 12/11/16 at 18 :00; Status DC Fluconazole/ Sodium Chloride 50 ml @ 50 mls/hr Q24H IV ; Start 12/06/16 at 16: 00; Stop 12/06/16 at 16:00; Status DC Acetaminophen (Tylenol Supp) 650 mg Q6H PRN RECTAL fevers; Start 12/06/16 at 14:45 Fluconazole/ Sodium Chloride 50 ml @ 50 mls/hr Q24H IV Last administered on 18:24; Start 12/06/16 at 18:00; Stop 12/08/16 at 15:35; Status DC Ampicillin Sodium 2000 mg/Sodium Chloride 100 ml @ 400 mls/hr Q4H IV ; Start 12/06/16 at 17:00; Stop 12/06/16 at 17:16; Status DC Sodium Chloride 1,000 ml @ 75 mls/hr [id number] IV Last administered on 04:20; Start 12/06/16 at 16:41; Stop 12/09/16 at 09:10; Status DC Baclofen (Lioresal) 10 mg Q8HR PRN PO MUSCLE SPASMS; Start 12/06/16 at 17:00; Stop 12/07/16 at 07:30; Status DC Citalopram Hydrobromide (CeleXA) 20 mg DAILY PO Last administered on 08:07; Start 12/07/16 at 09:00 Gabapentin (Neurontin) 800 mg TID PO Last administered on 12/17/16 08:07; Start 12/06/16 at 18:00 Hydroxyzine HCl (Atarax) 50 mg BID PRN PO ITCHING; Start 12/06/16 at 17:00 Oxybutynin Chloride (Ditropan) 5 mg Q12HR PRN PO URGENCY; Start 12/06/16 at 17 :00 Oxycodone/ Acetaminophen (Percocet 10-325 Mg) 1 tab Q6H PRN PO PAIN SCALE 3-10 Last administered on 12/07/16 04:27; Start 12/06/16 at 17:00; Stop 12/07/16 at 07:30; Status DC Leflunomide (Arava) 20 mg DAILY PO Last administered on 12/17/16 08:08; Start 12/07/16 at 09:00 Ampicillin Sodium 2000 mg/Sodium Chloride 100 ml @ 400 mls/hr Q4H IV Last administered on 12/07/16 13:40; Start 12/06/16 at 18:00; Stop 12/07/16 at 18 :21; Status DC Atropine Sulfate (Atropine Inj) 1 mg STK-MED ONCE .ROUTE ; Start 12/06/16 at 20 :46; Stop 12/06/16 at 20:47; Status DC Epinephrine HCl (EPINEPHrine (1:10,000) INJ) 1 mg STK-MED ONCE .ROUTE ; Start 12/06/16 at 20:46; Stop 12/06/16 at 20:47; Status DC Prednisone (Deltasone) 5 mg BID PO Last administered on 12/13/16 21:07; Start 12/07/16 at 09:00; Status Future Hold Prednisone (Deltasone) 5 mg ONCE ONCE PO ; Start 12/06/16 at 23:15; Stop 01/12 at 23:16; Status DC Enoxaparin Sodium (Lovenox Inj) 40 mg Q24H SQ ; Start 12/07/16 at 09:00; Stop 12/07/16 at 09:00; Status DC Pantoprazole Sodium (Protonix) 40 mg DAILY PO Last administered on 12/17/16 08:07; Start 12/07/16 at 09:00 Baclofen (Lioresal) 5 mg BID PRN PO MUSCLE SPASMS; Start 12/07/16 at 07:30 Methylprednisolone Sodium Succinate (SoluMEDROL INJ) 1,000 mg Q24H IV ; Start 12/07/16 at 07:30; Stop 12/07/16 at 07:35; Status DC Methylprednisolone Sodium Succinate 1000 mg/Dextrose 116 ml @ 232 mls/hr Q24H IV Last administered on 12/11/16 08:38; Start 12/07/16 at 09:00; Stop 12/12 at 08:02; Status DC Miscellaneous (Pill Splitter) 1 ea UNSCH PRN OTHER SEE LABEL COMMENTS; Start 12/07/16 at 07:45 Dextrose (D50w (Vial) Inj) 50 ml UNSCH PRN IV PUSH HYPOGLYCEMIA-SEE COMMENTS; Start 12/07/16 at 11:30; Stop 12/09/16 at 19:17; Status DC Glucagon (Glucagon Inj) 1 mg UNSCH PRN OTHER HYPOGLYCEMIA-SEE COMMENTS; Start 12/07/16 at 11:30; Stop 12/10/16 at 07:17; Status DC Levetriacetam 100 ml @ 400 mls/hr Q12HR IV Last administered on 12/17/16 08: 07; Start 12/07/16 at 14:00 Vancomycin HCl 1250 mg/Sodium Chloride 262.5 ml @ 250 mls/hr Q12H IV Last administered on 12/07/16 20:21; Start 12/07/16 at 21:00; Stop 12/09/16 at 15 :24; Status DC Miscellaneous Information SPECIFIC LAB TO BE HALLE... ONCE ONCE .XX ; Start at 08:45; Stop 12/08/16 at 08:46; Status DC Dextrose (D50w (Vial) Inj) 50 ml UNSCH PRN IV PUSH HYPOGLYCEMIA-SEE COMMENTS; Start 12/07/16 at 18:15 Glucagon (Glucagon Inj) 1 mg UNSCH PRN OTHER HYPOGLYCEMIA-SEE COMMENTS; Start 12/07/16 at 18:15 Insulin Aspart (NovoLOG SUPPLEMENTAL SCALE) 1 ACHS SLIDING SCALE SQ Last administered on 12/16/16 20:59; Start 12/07/16 at 21:00 Sodium Chloride 1,000 ml @ 999 mls/hr BOLUS ONCE IV Last administered on 02:00; Start 12/08/16 at 02:00; Stop 12/08/16 at 03:00; Status DC Metronidazole 100 ml @ 100 mls/hr Q8H IV Last administered on 12/08/16 12:50 ; Start 12/08/16 at 05:00; Stop 12/08/16 at 15:35; Status DC Lactobacillus Acidophilus (Lactinex) 1 tab TID PO Last administered on 08:07; Start 12/08/16 at 09:00 Furosemide (Lasix Inj) 20 mg ONCE ONCE IV PUSH Last administered on 05:49; Start 12/08/16 at 05:30; Stop 12/08/16 at 05:40; Status DC Potassium Chloride 100 ml @ 50 mls/hr Q2H PRN IV For Potassium 2.8 - 3.2 mEq/ L Last administered on 12/12/16 11:33; Start 12/08/16 at 09:30; Stop at 09:31; Status DC Potassium Chloride 100 ml @ 50 mls/hr Q2H PRN IV For Potassium 2.8 - 3.2 mEq/L ; Start 12/08/16 at 09:30; Stop 12/16/16 at 09:31; Status DC Potassium Bicarb/ Potassium Chloride (K-Lyte Cl Eff) 50 meq UNSCH PRN PO For Potassium 3.3 - 3.5 mEq/L; Start 12/08/16 at 09:30; Stop 12/16/16 at 09:31; Status DC Potassium Chloride 100 ml @ 25 mls/hr UNSCH PRN IV For Potassium 3.3 - 3.5 mEq /L Last administered on 12/11/16t 06:15; Start 12/08/16 at 09:30; Stop at 09:31; Status DC Potassium Chloride 100 ml @ 50 mls/hr Q2H PRN IV For Potassium 3.3 - 3.5 mEq/L ; Start 12/08/16 at 09:30; Stop 12/16/16 at 09:31; Status DC Magnesium Sulfate 4 gm/Sodium Chloride 100 ml @ 50 mls/hr UNSCH PRN IV For Magnesium 0.9 - 1.1 mg/dL; Start 12/08/16 at 09:30; Stop 12/16/16 at 09:31; Status DC Magnesium Oxide (Mag-Ox) 800 mg UNSCH PRN PO For Magnesium 1.2 - 1.6 mg/dL; Start 12/08/16 at 09:30; Stop 12/16/16 at 09:31; Status DC Magnesium Sulfate 2 gm/Sodium Chloride 100 ml @ 50 mls/hr UNSCH PRN IV For Magnesium 1.2 - 1.6 mg/dL; Start 12/08/16 at 09:30; Stop 12/16/16 at 09:31; Status DC Potassium Phosphate (K-Phos) 2,000 mg Q4H PRN PO For Phosphorus < 2.5 mg/dL; Start 12/08/16 at 09:30; Stop 12/16/16 at 09:31; Status DC Sodium Phosphate 30 mmol/Sodium Chloride 250 ml @ 42 mls/hr UNSCH PRN IV For Phosphorus < 2.5 mg/dL; Start 12/08/16 at 09:30; Stop 12/16/16 at 09:31; Status DC Potassium Phosphate (K-Phos) 2,000 mg UNSCH PRN PO/TUBE SEE LABEL COMMENTS; Start 12/08/16 at 09:30; Stop 12/16/16 at 09:31; Status DC Potassium Phosphate 30 mmol/ Sodium Chloride 260 ml @ 42 mls/hr UNSCH PRN IV SEE LABEL COMMENTS; Start 12/08/16 at 09:30; Stop 12/16/16 at 09:31; Status DC Calcium Gluconate 1 gm/Sodium Chloride 110 ml @ 110 mls/hr ONCE ONCE IV Last administered on 12/08/16 12:50; Start 12/08/16 at 12:00; Stop 12/08/16 at 12 :59; Status DC Fluconazole (Diflucan) 100 mg DAILY PO Last administered on 12/17/16 08:07; Start 12/09/16 at 09:00 Vancomycin HCl (VANCOMYCIN for oral use only) 125 mg QID PO Last administered on 12/17/16 08:08; Start 12/08/16 at 18:00 Sodium Chloride 1,000 ml @ 84 mls/hr [id number] IV Last administered on 10:28; Start 12/09/16 at 09:30; Status Future Hold Hydralazine HCl (Apresoline Inj) 20 mg Q4H PRN IV PUSH SBP>170, DBP>90 Last administered on 12/09/16 12:05; Start 12/09/16 at 10:00; Stop 12/09/16 at 20 :11; Status DC Hydralazine HCl (Apresoline) 10 mg Q6HR PRN PO SBP>160, DBP>90 Last administered on 12/15/16 16:40; Start 12/09/16 at 10:00 Enalaprilat (Vasotec Inj) 2.5 mg Q6H PRN IV PUSH SBP>160, DBP>90 Last administered on 12/17/16 00:57; Start 12/09/16 at 09:15 Calcium Carbonate (Tums Chew) 500 mg Q12HR CHEW Last administered on 08:07; Start 12/09/16 at 09:15 Magnesium Oxide (Mag-Ox) 400 mg DAILY@1100 PO Last administered on 12/10/16 09:56; Start 12/09/16 at 11:00; Stop 12/12/16 at 10:59; Status DC Potassium Chloride (KCl) 20 meq DAILY PO Last administered on 12/12/16 09:25 ; Start 12/09/16 at 09:30; Stop 12/12/16 at 09:29; Status DC Vancomycin HCl 1250 mg/Sodium Chloride 262.5 ml @ 250 mls/hr Q12H IV Last administered on 12/11/16 04:25; Start 12/09/16 at 16:00; Stop 12/11/16 at 10 :30; Status DC Miscellaneous Information SPECIFIC LAB TO BE DRAWN:VANCO DATE TO... ONCE ONCE .XX Last administered on 12/11/16 03:45; Start 12/11/16 at 03:45; Stop at 03:46; Status DC Lorazepam (Ativan Inj) 2 mg STK-MED ONCE .ROUTE ; Start 12/09/16 at 16:08; Stop 12/09/16 at 16:09; Status DC Oxycodone/ Acetaminophen (Percocet 10-325 Mg) 1 tab TID PO Last administered on 12/15/16 07:55; Start 12/09/16 at 18:00; Stop 12/15/16 at 08:30; Status DC Lorazepam (Ativan Inj) 1 mg BID PRN IV AGITATION; Start 12/09/16 at 16:15; Stop 12/15/16 at 08:30; Status DC Clonidine (Catapres) 0.1 mg NOW ONCE PO Last administered on 12/09/16 19:15 ; Start 12/09/16 at 19:15; Stop 12/09/16 at 19:16; Status DC Flumazenil (Romazicon Inj) 0.5 mg STK-MED ONCE .ROUTE Last administered on 21:01; Start 12/09/16 at 21:01; Stop 12/09/16 at 21:02; Status DC Diltiazem HCl (Cardizem Inj) 20 mg Q8HR IV Last administered on 12/13/16 06: 37; Start 12/09/16 at 22:00; Stop 12/13/16 at 10:04; Status DC Hydralazine HCl (Apresoline Inj) 20 mg Q4H PRN IV PUSH SBP>160, DBP>90 Last administered on 12/15/16 11:30; Start 12/09/16 at 21:30; Stop 12/16/16 at 12 :03; Status DC Sodium Chloride 250 ml @ 15 mls/hr ONCE ONCE IV Last administered on 02:30; Start 12/10/16 at 02:30; Stop 12/10/16 at 03:27; Status DC Iron Sucrose 100 mg/Sodium Chloride 105 ml @ 105 mls/hr DAILY IV Last administered on 12/12/16 10:04; Start 12/10/16 at 09:00; Stop 12/12/16 at 09 :59; Status DC Olanzapine (ZyPREXA) 5 mg Q12HR PO Last administered on 12/15/16 07:55; Start 12/10/16 at 14:45; Stop 12/15/16 at 08:30; Status DC Vancomycin HCl 1000 mg/Sodium Chloride 250 ml @ 250 mls/hr Q12H IV ; Start at 18:00; Stop 12/11/16 at 18:00; Status DC Miscellaneous Information SPECIFIC LAB TO BE DRAWN:VANCOMY... ONCE ONCE .XX ; Start 12/13/16 at 05:45; Stop 12/13/16 at 05:45; Status DC Ceftriaxone Sodium 2000 mg/ Sodium Chloride 100 ml @ 200 mls/hr Q24H IV Last administered on 12/15/16 13:07; Start 12/11/16 at 15:00; Stop 12/15/16 at 23 :55; Status DC Acyclovir Sodium 600 mg/Sodium Chloride 100 ml @ 100 mls/hr Q8H IV Last administered on 12/15/16 16:41; Start 12/12/16 at 01:00; Stop 12/15/16 at 16 :37; Status DC Gadodiamide (Omniscan Pf Inj) 17 ml STK-MED ONCE IV PUSH Last administered on 12/11/16 18:56; Start 12/11/16 at 18:56; Stop 12/11/16 at 18:57; Status DC Epinephrine HCl (EPINEPHrine (1:10,000) INJ) 2 mg STK-MED ONCE .ROUTE ; Start 12/11/16 at 19:39; Stop 12/11/16 at 19:40; Status DC Methylprednisolone Sodium Succinate 200 mg/Dextrose 103.2 ml @ 232 mls/hr Q24H IV Last administered on 12/13/16 10:26; Start 12/12/16 at 09:00; Stop 12/14 at 07:55; Status DC Alteplase, Recombinant (Cathflo Activase Inj) 2 mg NOW ONCE IV FLUSH Last administered on 12/12/16 17:21; Start 12/12/16 at 17:15; Stop 12/12/16 at 17 :16; Status DC Alteplase, Recombinant (Cathflo Activase Inj) 2 mg ONCE PRN IV FLUSH IF FIRST DOSE INEFFECTIVE Last administered on 12/12/16 21:29; Start 12/12/16 at 17:15 ; Stop 12/12/16 at 21:29; Status DC Diltiazem HCl (Cardizem) 30 mg Q6HR PO Last administered on 12/15/16 11:30; Start 12/13/16 at 12:00; Stop 12/15/16 at 11:32; Status DC Collagenase (Santyl Oint) 1 applic DAILY TOPICAL Last administered on 08:08; Start 12/13/16 at 18:00 Gentamicin Sulfate (Gentamicin 0.1% Oint) 1 applic DAILY TOPICAL Last administered on 12/17/16 08:09; Start 12/13/16 at 18:00 Methylprednisolone Sodium Succinate 50 mg/Dextrose 100.8 ml @ 232 mls/hr Q24H IV Last administered on 12/14/16 12:05; Start 12/14/16 at 10:00; Stop 12/14 at 21:45; Status DC Prednisone (Deltasone) 5 mg DAILY@0600 PO Last administered on 12/17/16 05:01 ; Start 12/17/16 at 06:00 Insulin Detemir (Levemir Inj) 25 units HS SQ ; Start 12/14/16 at 21:00; Stop 12/14/16 at 21:00; Status DC Insulin Detemir (Levemir Inj) 10 units Q12HR SQ Last administered on 09:00; Start 12/14/16 at 21:00; Stop 12/16/16 at 11:57; Status DC Methylprednisolone Sodium Succinate (SoluMEDROL INJ) 50 mg Q24H IV Last administered on 12/16/16 09:29; Start 12/15/16 at 10:00; Stop 12/16/16 at 10 :01; Status DC Olanzapine (ZyPREXA) 5 mg Q12HR PRN PO AGITATION AND/OR HALLUCINATION; Start 12/15/16 at 08:30 Oxycodone/ Acetaminophen (Percocet 10-325 Mg) 1 tab TID PRN PO PAIN SCALE 3 TO 6 Last administered on 12/17/16 08:21; Start 12/15/16 at 08:30 Metoprolol Tartrate (Lopressor) 25 mg Q12HR PO Last administered on 12/17/16 08:07; Start 12/15/16 at 21:00 Amlodipine Besylate (Norvasc) 10 mg DAILY ONCE PO Last administered on 18:38; Start 12/15/16 at 17:53; Stop 12/15/16 at 17:54; Status DC Insulin Detemir (Levemir Inj) 8 units Q12HR SQ Last administered on 12/17/16 08:08; Start 12/16/16 at 21:00 Nifedipine (Procardia Xl) 30 mg ONCE ONCE PO Last administered on 12/16/16 12:39; Start 12/16/16 at 12:15; Stop 12/16/16 at 12:16; Status DC A/P Problem List: (1) Sepsis ICD Code: A41.9 - Sepsis, unspecified organism (2) Acute metabolic encephalopathy ICD Code: G93.41 - Metabolic encephalopathy (3) Cellulitis ICD Code: L03.90 - Cellulitis, unspecified Assessment and Plan A/P Sepsis, source possible BLE cellulitis and meningoencephalitis . patient with RA on immunosuppressive Rx. LP was done and poss viral meningitis/encephalitis. Also possible vasculitis per neuro , work up in progress. -repeated MRI brain stable. -antibiotics were discontinued- per ID. -stopped IV steroids- continue prednisone. -Neck soft tissue US no abscess -Blood cultures negative so far. -VZV PCR negative. -neurology following. -evaluated by ID. - Pt also has chronic on and off diarrhea C diff - hx of cdiff sepsis. Positive C diff this admission treat with vanco per ID Hypokalemia. replaced. Acute metabolic encephalopathy, poss due to sepsis- minimize sedatives. Head CT reviewed and shows white matter hypodensity, due to artifact unknown if chronic repeated MRI brain stable. psych consult appreciated; started on Zyprexa neurology following. Seizure, started levetiracetam. EEG reviewed -Neuro checks -neurology following. Urinary incontinence repeat UA Abdominal CT reviewed and shows no acute disease Hypertension: continue metoprolol- start on Procardia. continue to monitor and will adjust the regimen as needed. Anemia , iron deficient. received Venofer IV. Monitor H/H transfuse if HGB< 7 Chronic diarrhea, hx of c diff -C diff positive. DC'ed flagyl as might worsen encephalopathy, started vanco per ID RA, chronic -on Leflunomide and prednisone. Severe protein calorie malnutrition: low albumin. Consulted industrial roof plumber. diabetes mellitus with hypoglycemic episode. no further hypoglycemic episodes continue levemir to 8 units subq q12 hrs- continue with sliding scale coverage. continue to monitor and adjust the regimen as needed. DVT prophylaxis: Lovenox. continue PT. Discharge Planning dc planning to rehab when cleared by neurology and ID. Problem Qualifiers (1) Sepsis: Qualified Codes: A41.9 - Sepsis, unspecified organism Tamika Bonds MD Dec 17, 2016 10:00
[2016-12-17] MEDS: NIFEdipine 30 MG SUSTAINED RELEASE TAB PO SCH (10:51)
[2016-12-17] MEDS: ENOXAPARIN SODIUM 40 MG/0.4 ML SYRINGE SQ SCH (10:52)
[2016-12-18] VITALS (7 sets, daily range): BP systolic 125–191; BP diastolic 63–86; PULSE 78–102; RESP 16–18; TEMP 96.7–99.3; O2SAT 92–96
[2016-12-18] MEDS: predniSONE 5 MG TAB PO SCH (05:15)
[2016-12-18] MEDS: oxyCODONE/ACETAMINOPHEN 10 MG/325 MG TAB PO PRN ×2 (05:17→21:44)
[2016-12-18] MEDS: INSULIN ASPART SUPPLEMENTAL SCALE SQ SCH ×4 (07:30→21:00)
[2016-12-18] MEDS: VANCOMYCIN 500 MG VIAL (FOR ORAL USE ONLY) PO SCH ×4 (09:00→21:47)
[2016-12-18] MEDS: DOCUSATE SODIUM 50 MG/SENNA 8.6 MG TAB PO SCH ×2 (09:00→21:43)
[2016-12-18] MEDS: LEFLUNOMIDE 20 MG TAB PO SCH (09:00)
[2016-12-18 09:34] LABS: BACTERIA, URINE FEW /hpf; BLOOD, URINE NEG (NEG); COMMENT (UR) CULT NOT INDICATED; CULTURE IF INDICATED CULT NOT INDICATED; GLUCOSE,URINE NEG (NEG); KETONE, URINE NEG (NEG); NITRITE,URINE NEG (NEG); SQUAMOUS EPITHELIAL CELL URINE <1 /hpf (0-5); URINE COLOR LIGHT-YELLOW (YELLW/STRAW)
[2016-12-18] MEDS: SODIUM CHLORIDE 0.9% FLUSH 10 ML FLUSH IV FLUSH SCH ×2 (09:45→22:02)
[2016-12-18] MEDS: levETIRAcetam 1000 MG INJ 100 ML IV SCH (09:45)
[2016-12-18] MEDS: PANTOPRAZOLE SOD 40 MG DELAYED RELEASE TAB PO SCH (09:45)
[2016-12-18] MEDS: CALCIUM CARBONATE 500 MG CHEWABLE TAB CHEW SCH ×2 (09:45→21:43)
[2016-12-18] MEDS: LACTOBACILLUS ACIDOPHILUS TAB PO SCH ×3 (09:46→18:03)
[2016-12-18] MEDS: METOPROLOL TARTRATE 25 MG TAB PO SCH ×2 (09:46→21:50)
[2016-12-18] MEDS: GABAPENTIN 400 MG CAP PO SCH ×3 (09:46→18:03)
[2016-12-18] MEDS: FLUCONAZOLE 100 MG TAB PO SCH (09:46)
[2016-12-18] MEDS: NIFEdipine 30 MG SUSTAINED RELEASE TAB PO SCH (09:46)
[2016-12-18] MEDS: CITALOPRAM HYDROBROMIDE 20 MG TAB PO SCH (09:47)
[2016-12-18] MEDS: INSULIN DETEMIR 100 UNITS/ML VIAL SQ SCH ×2 (09:47→21:00)
[2016-12-18] MEDS: GENTAMICIN SULFATE 0.1% OINT 15 GM TUBE TOPICAL SCH (09:48)
[2016-12-18] MEDS: ENOXAPARIN SODIUM 40 MG/0.4 ML SYRINGE SQ SCH (09:48)
[2016-12-18] MEDS: COLLAGENASE OINT 30 GM TUBE TOPICAL SCH (09:48)
--- NOTE | 2016-12-18 13:22 | HHI.PR ---
Addendum to Inpatient Note Additional Information dw Dr Kailash Shea All CSF w/u negative and no active ID problem except for C.diff Pt will need to complete her 14 day course of vancomycin which can be done as outpt Sandra Nascimento MD Dec 18, 2016 13:22
--- NOTE | 2016-12-18 15:03 | HHI.PR ---
Subjective Remarks Episode of diarrhea this morning. No new complaints of pain. No further seizure activity. Objective Vital Signs Date Time Temp Pulse Resp B/P (MAP) Pulse Ox O2 Delivery O2 Flow Rate FiO2 12/18/16 12:00 97.5 100 18 180/81 (114) 92 12/18/16 09:36 92 12/18/16 08:00 97.2 94 18 172/77 (108) 92 12/18/16 00:00 96.7 87 18 191/86 (121) 92 12/17/16 21:40 97.9 102 20 164/75 (104) 96 12/17/16 20:24 21 12/17/16 16:00 97.9 99 20 137/76 (96) 95 I/O 12/17/16 12/17/16 12/17/16 12/18/16 12/18/16 12/18/16 07:00 15:00 23:00 07:00 15:00 23:00 Intake Total 240 ml 1000 ml 200 ml Output Total 1100 ml 1 ml Balance 240 ml -100 ml -1 ml 200 ml Intake Oral 240 ml 1000 ml IV Total 200 ml Output Urine Total 1000 ml Stool Total 100 ml 1 ml # Voids 5 3 Result Diagram: 12/17/1672912/17/16729 Objective Remarks GENERAL: NAD, A&Ox3 HEAD: Normocephalic. NECK: Supple, trachea midline. No lymphadenopathy. EYES: No scleral icterus. No injection or drainage. CARDIOVASCULAR: Regular rate and rhythm without murmurs, gallops, or rubs. RESPIRATORY: Breath sounds equal bilaterally. No accessory muscle use. GASTROINTESTINAL: Abdomen soft, non-tender, nondistended. MUSCULOSKELETAL: No cyanosis, or edema. Arthritic changes of extremities SKIN: Warm and dry. NEURO: No focal neurological deficitis. A/P Problem List: (1) Rheumatoid arthritis ICD Code: M06.9 - Rheumatoid arthritis, unspecified (2) Seizure ICD Code: R56.9 - Unspecified convulsions (3) Physical deconditioning ICD Code: R53.81 - Other malaise (4) C. difficile colitis ICD Code: A04.72 - Enterocolitis due to Clostridium difficile, not specified as recurrent Assessment and Plan Assessment and Plan 46-year-old female admitted with sepsis from bilateral lower external a cellulitis versus meningeal encephalitis, developed C. difficile which is a recurrent issue for her Sepsis Resolved C. difficile colitis Continue by mouth vancomycin Infectious disease following Metabolic encephalopathy secondary to sepsis Resolved Seizure On Keppra 500 mg by mouth twice a day Neurology following Urinary incontinence repeat UA Abdominal CT reviewed and shows no acute disease Hypertension Continue metoprolol Continue Procardia Follow blood pressures RA, chronic Continue Leflunomide and prednisone. Severe protein calorie malnutrition Continue by mouth intake diabetes mellitus with hypoglycemic episode. Continue Levemir Follow blood sugars Insulin sliding scale Diabetic diet Physical rehabilitation Continue physical therapy DVT prophylaxis Lovenox. Discharge Planning Patient has decided to discharge to home with home health ID has cleared this patient for discharge Awaiting neurological clearance Joel Shea MD Dec 18, 2016 15:03
[2016-12-18] MEDS: levETIRAcetam 500 MG TAB PO SCH (22:02)
[2016-12-19 00:29] VITALS: BP 136/67; PULSE 82; RESP 17; TEMP 98.9; O2SAT 95
[2016-12-19] MEDS: predniSONE 5 MG TAB PO SCH (06:07)
[2016-12-19] MEDS: oxyCODONE/ACETAMINOPHEN 10 MG/325 MG TAB PO PRN ×2 (06:48→14:37)
[2016-12-19 08:00] VITALS: BP 145/81; PULSE 82; RESP 19; TEMP 96.9; O2SAT 95
--- NOTE | 2016-12-19 08:31 | HHI.FF ---
Face to Face Verification Diagnosis: (1) C. difficile colitis (2) Physical deconditioning (3) Seizure (4) Rheumatoid arthritis Physical Therapy Order: Evaluate and Treat Occupational Therapy Order: Evaluate and Treat Home Health Nursing Order: Signs/symptoms of disease process Nursing assessment with vital signs Home Health Aide Order: To Assist In: Bathing and personal care I have seen patient Kendy Harris on 12/19/16. My clinical findings support the need for the requested home health care services because: Ltd mobility - disease progression Deconditioned w/ increased weakness Limited ability to care for self High risk of falls Infection w/ risk of complications I certify that my clinical findings support that this patient is homebound because: Unsteady gait/balance Unsafe to leave home unassisted Unable to use public transportation Joel Shea MD Dec 19, 2016 08:31
[2016-12-19] MEDS ORDERED: LEVE500 PO (08:36)
[2016-12-19] MEDS ORDERED: VANC500I3 PO (08:36)
[2016-12-19] MEDS ORDERED: LACT PO (08:36)
[2016-12-19] MEDS: LACTOBACILLUS ACIDOPHILUS TAB PO SCH ×2 (08:45→14:35)
[2016-12-19] MEDS: levETIRAcetam 500 MG TAB PO SCH (08:46)
[2016-12-19] MEDS: LEFLUNOMIDE 20 MG TAB PO SCH (08:46)
[2016-12-19] MEDS: METOPROLOL TARTRATE 25 MG TAB PO SCH (08:46)
[2016-12-19] MEDS: GABAPENTIN 400 MG CAP PO SCH ×2 (08:46→14:35)
[2016-12-19] MEDS: PANTOPRAZOLE SOD 40 MG DELAYED RELEASE TAB PO SCH (08:46)
[2016-12-19] MEDS: FLUCONAZOLE 100 MG TAB PO SCH (08:46)
[2016-12-19] MEDS: CITALOPRAM HYDROBROMIDE 20 MG TAB PO SCH (08:47)
[2016-12-19] MEDS: CALCIUM CARBONATE 500 MG CHEWABLE TAB CHEW SCH (08:47)
[2016-12-19] MEDS: DOCUSATE SODIUM 50 MG/SENNA 8.6 MG TAB PO SCH (08:47)
[2016-12-19] MEDS: NIFEdipine 30 MG SUSTAINED RELEASE TAB PO SCH (08:47)
[2016-12-19] MEDS: SODIUM CHLORIDE 0.9% FLUSH 10 ML FLUSH IV FLUSH SCH (08:47)
[2016-12-19] MEDS: VANCOMYCIN 500 MG VIAL (FOR ORAL USE ONLY) PO SCH ×2 (08:48→14:36)
[2016-12-19] MEDS: INSULIN DETEMIR 100 UNITS/ML VIAL SQ SCH (08:48)
[2016-12-19] MEDS: GENTAMICIN SULFATE 0.1% OINT 15 GM TUBE TOPICAL SCH (08:48)
[2016-12-19] MEDS: COLLAGENASE OINT 30 GM TUBE TOPICAL SCH (08:49)
[2016-12-19] MEDS: INSULIN ASPART SUPPLEMENTAL SCALE SQ SCH ×2 (08:59→12:00)
[2016-12-19] MEDS: ENOXAPARIN SODIUM 40 MG/0.4 ML SYRINGE SQ SCH (11:00)
[2016-12-19] MEDS ORDERED: OXYC1TAB36 PO (11:20)
[2016-12-19] MEDS ORDERED: OXYB5TAB10 PO (11:29)
[2016-12-19] MEDS ORDERED: CITA20TA4 PO (11:29)
[2016-12-19] MEDS ORDERED: METO50TA PO (11:29)
[2016-12-19] MEDS ORDERED: GABA800T PO (11:29)
[2016-12-19] MEDS ORDERED: BACL10TA PO (11:29)
[2016-12-19] MEDS ORDERED: HYDR50TA94 PO (11:29)
[2016-12-19] MEDS ORDERED: LEFL1TAB3 PO (11:29)
[2016-12-19] MEDS ORDERED: LANTUS2P SQ (11:29)
--- NOTE | 2016-12-19 11:33 | HHI.DS ---
Discharge Summary Admission Date Dec 06, 2016 at 04:24 Discharge Date: Dec 19, 2016 Admitting Diagnosis Sepsis, cellulitis (1) Sepsis ICD Code: A41.9 - Sepsis, unspecified organism Diagnosis: Principal (2) Acute metabolic encephalopathy ICD Code: G93.41 - Metabolic encephalopathy Diagnosis: Principal (3) Cellulitis ICD Code: L03.90 - Cellulitis, unspecified Diagnosis: Principal Procedures central line placement. Brief History - From Admission Written by NASIMA Quijano acting as scribe for [Isabell] on 12/06/16 at 05: 02. 46 y/o female with a history of DM, HTN, MS (not fully diagnosed), C DIFF and RA was brought to the ED with altered mental status. Patient does not answer questions she just screams and yells. Patient significant other is at the bedside and able to answer questions. Significant other states yesterday she was lethargic, didn't want to wake up to eat. Was taken to [facility] at first and she began to wake up, blood work was not obtained because they could not get an IV. She was then discharged home once she was not altered. 1 hour after getting home she started to yell and complaining she was cold, then she began to yell and not make much sense. Significant other states she complained of the right side of her head hurting, along with mouth and tongue for the last 2 weeks. She does have chronic diarrhea and nausea, not more than normal. She is immunocompromised due to the RA medications she is on. Patient screams even louder when neck is moved, family states she is always tender in her neck due to the hardware. She is on Cephalexin daily for prophylaxis for her cervical spine. Significant other states she behaved this way last time she was septic with c diff 1 year ago. Patient had abdominal distention upon arrival and a Ocampo was placed. Patient is mostly wheel chair bound but is able to walk short distances. CBC/BMP: 12/17/16 0730 12/17/16 0730 Significant Findings Laboratory Tests Test 12/17/16 07:30 12/18/16 07:52 Hemoglobin 10.0 GM/DL (11.6-15.3) Hematocrit 31.9 % (35.0-46.0) Mean Corpuscular Volume 77.6 FL (80.0-100.0) Mean Corpuscular Hemoglobin 24.4 PG (27.0-34.0) Mean Corpuscular Hemoglobin Concent 31.4 % (32.0-36.0) Red Cell Distribution Width 18.1 % (11.6-17.2) Neutrophils (%) (Auto) 81.1 % (16.0-70.0) Lymphocytes # (Auto) 0.9 TH/MM3 (1.0-4.8) Creatinine 0.27 MG/DL (0.50-1.00) Calcium Level 8.2 MG/DL (8.5-10.1) Potassium Level 3.3 MEQ/L (3.5-5.1) Carbon Dioxide Level 35.2 MEQ/L (21.0-32.0) Anion Gap 4 MEQ/L (5-15) Urine Turbidity HAZY (CLEAR) Urine Protein 30 mg/dL (NEG-TRACE) Urine Leukocyte Esterase SMALL (NEG) Urine WBC 7 /hpf (0-5) Urine Bacteria FEW /hpf (NONE) PE at Discharge GENERAL: This is a well-nourished, well-developed patient, in no apparent distress. CARDIOVASCULAR: Regular rate and regular rhythm without murmurs, gallops, or rubs. RESPIRATORY: Clear to auscultation. Breath sounds equal bilaterally. No wheezes , rales, or rhonchi. GASTROINTESTINAL: Abdomen soft, non-tender, nondistended. Normal, active bowel sounds MUSCULOSKELETAL: Extremities without clubbing, cyanosis, or edema. NEURO: awake and alert. Hospital Course Mrs. Harris is a 46 year-old female. She was admitted secondary to altered mental status and presence of bilateral lower extremity cellulitis. This was treated. She also had C. difficile colitis and this is also treated. Diarrhea is now improving. Her mentation has returned back to prior baseline. Global weakness is present and she is rehabbing well with PT. We discussed options for long-term facility, this patient prefers discharge to home with home health rather than long-term facility. Today she is medically stable for discharge home and arrangements have been made for home health care with home PT , home OT, home nursing, and home nursing consultant. Pt Condition on Discharge: Stable Discharge Disposition: Discharge Home Discharge Time: > 30 minutes Discharge Instructions DIET: Follow Instructions for: As Tolerated, No Restrictions Speech Therapy-Diet Recommends: Soft Activities you can perform: Regular-No Restrictions Joel Shea MD Dec 19, 2016 11:33
--- NOTE | 2016-12-19 11:42 | HHI.HCPN ---
Ms. Harris scheduled for tentative discharge today, Sunday12/19/16. Met with Ms. Harris in her room. She is lying in bed, alert, oriented but verbalizes some confusion at times, able to make her needs known. Acknowledges discharge for today but states "as excited as it makes me to be able to go home, I feel like tomorrow would be a better day". Further explore these feelings and she elaborates she has new pain in her back. Describes pain as sharp creating blurry vision and nausea at times. Symptoms not present at time of visit. Does not feel this is related to her general bed bound status. She reports some difficulty when working with PT as she was "trying to push myself too much". Nurse in room to provide discharge instructions, informed her of above new pain and discharge concerns. Ms. Harris requests information regarding [facility] as she would like to switch from her current provider and remain in the [facility] system. She is requesting to speak again with CM. manager valuation informed. Gently reviewed advanced directives and community DNR. She confirms DNR status, reports her significant other took them home and she plans to complete them when they are all home together. She again tells me she does not want her daughter Karolina to have to make any decisions. She is thinking about designating her significant other as primary and mother as alternate. Again, declines completing documents with me today. Reviewed [place] Statutes should documents not be completed and Ms. Harris verbalizes understanding. Palliative care number provided again per her request. Palliative care will continue to follow throughout hospitalization. Michelle Gary, SERVICE TEAM LEADER Dec 19, 2016 11:42
[2016-12-19 12:00] VITALS: BP 121/85; PULSE 94; RESP 19; TEMP 98.2; O2SAT 95
--- NOTE | 2016-12-19 14:16 | HHI.PR ---
Addendum to Inpatient Note Addendum Reason: Additional Documentation Additional Information d/w hospitalist. Clinically doing well diarrhea controlled on Vanco. Ok to DC on oral vanco for additional 10 days. No need for diflucan on discharge. Will sign off please call back if any change in clinical condition or questions. Priscilla Corey MD Dec 19, 2016 14:16
[2016-12-19 16:00] VITALS: BP 156/76; PULSE 98; RESP 22; TEMP 97.6; O2SAT 98
[2016-12-19 17:09] VITALS: O2SAT 98
== END 2016-12-19 18:12 | disposition home or self-care (01) | DRG 871 ==
LOC: NEPE 01:35 → NEDA 04:24 → HCIN 11:02 → N03B 21:26 → N03A 22:07 → N07A 12-15 17:40
PROVIDERS: ADMIT Hospitalist; ATTEND Hospitalist
PROC: 009U3ZX Drainage of Spinal Canal, Percutaneous Approach, Diagnostic (ICD-10-PCS; principal; 2016-12-06)
PROC: B01B1ZZ Fluoroscopy of Spinal Cord using Low Osmolar Contrast (ICD-10-PCS; 2016-12-06)
PROC: 0T9B70Z Drainage of Bladder with Drainage Device, Via Natural or Artificial Opening (ICD-10-PCS; 2016-12-06)
PROC: 02HV33Z Insertion of Infusion Device into Superior Vena Cava, Percutaneous Approach (ICD-10-PCS; 2016-12-08)
DX: A41.9 Sepsis, unspecified organism (principal); G93.41 Metabolic encephalopathy; E43 Unspecified severe protein-calorie malnutrition; A86 Unspecified viral encephalitis; A04.71 Enterocolitis due to Clostridium difficile, recurrent; I11.0 Hypertensive heart disease with heart failure; I50.9 Heart failure, unspecified; M06.9 Rheumatoid arthritis, unspecified; B36.9 Superficial mycosis, unspecified; L03.115 Cellulitis of right lower limb; L03.116 Cellulitis of left lower limb; L97.929 Non-pressure chronic ulcer of unspecified part of left lower leg with unspecified severity; A87.9 Viral meningitis, unspecified; E11.622 Type 2 diabetes mellitus with other skin ulcer; E11.69 Type 2 diabetes mellitus with other specified complication; G35 Multiple sclerosis; R33.9 Retention of urine, unspecified; R65.20 Severe sepsis without septic shock; H02.402 Unspecified ptosis of left eyelid; E61.1 Iron deficiency; R52 Pain, unspecified; E11.649 Type 2 diabetes mellitus with hypoglycemia without coma; R32 Unspecified urinary incontinence; F22 Delusional disorders; T38.0X5A Adverse effect of glucocorticoids and synthetic analogues, initial encounter; M81.8 Other osteoporosis without current pathological fracture; K12.30 Oral mucositis (ulcerative), unspecified; E87.6 Hypokalemia; Z66 Do not resuscitate; Z79.52 Long term (current) use of systemic steroids; Z68.26 Body mass index [BMI] 26.0-26.9, adult; Z86.73 Personal history of transient ischemic attack (TIA), and cerebral infarction without residual deficits; Z88.5 Allergy status to narcotic agent; Z98.1 Arthrodesis status; Z99.3 Dependence on wheelchair
CPT/HCPCS: 36600; 51702; 62270; 70450; 70544; 70551; 70553; 71010; 72141; 73120; 74177; 76536; 76937; 77003; 80048; 80053; 80074; 80202; 80307; 81001; 82040; 82042; 82140; 82550; 82552; 82607; 82728; 82784; 82805; 82945; 82948; 83036; 83540; 83550; 83605; 83690; 83735; 83873; 83880; 83916; 84100; 84132; 84134; 84155; 84157; 84425; 84439; 84443; 84484; 84703; 85025; 85610; 85652; 85730; 86038; 86140; 86403; 86430; 86592; 86617; 86618; 86651; 86652; 86653; 86654; 86703; 86850; 86900; 86901; 86920; 87015; 87040; 87070; 87077; 87102; 87116; 87186; 87205; 87206; 87493; 87529; 87641; 87799; 88112; 89051; 93005; 93306; 95819; 96361; 96365; 96368; 96375; A9579; J0133; J0171; J0290; J0360; J0461; J0610; J0696; J1450; J1650; J1756; J1815; J1940; J1953; J2060; J2270; J2543; J2930; J2997; J3370; J3480; J7030; J7050; J7512; Q9967

== ENCOUNTER 2017-03-21 09:45 | Inpatient (IN) | payer MEDICARE ==
[~2017-03-21] VITALS: Ht 165.1 cm; Wt 54.6 kg
[2017-03-21] VITALS (8 sets, daily range): BP systolic 124–190; BP diastolic 66–109; PULSE 68–146; RESP 16–26; TEMP 98.8–102; O2SAT 95–99
[~2017-03-21 09:45] MED LIST: BACL10TA PO; CITA20TA4 PO; GABA800T PO; HYDR50TA94 PO; LACT PO; LANTUS2P SQ; LEFL1TAB3 PO; LEVE500 PO; METO50TA PO; OXYB5TAB8 PO; OXYC1TAB36 PO; VANC500I3 PO
[2017-03-21] MEDS ORDERED: SODIUM CHLOR 0.9% 1000 ML INJ 1,000 ML IV ONE ×3 (10:06→18:30)
[2017-03-21] MEDS ORDERED: SODIUM CHLOR 0.9% 1000 ML INJ 800 ML IV ONE (10:06)
[2017-03-21] MEDS ORDERED: ACETAMINOPHEN 325 MG TAB PO ONE (10:15)
--- NOTE | 2017-03-21 10:18 | PD ---
HPI Chief Complaint: Fever Time Seen by Provider: 09:57 Travel History International Travel<30 days: No Contact w/Intl Traveler<30days: No Traveled to known affect area: No History of Present Illness HPI The patient is a 46-year-old female who presents to the emergency department via fire rescue from [place], [place], for altered mental status. Apparently the patient had altered mental status at home, the family called EMS , stating the patient was not answering questions appropriately. However, upon arrival the patient was alert and oriented. 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 The patient does note fevers which started last night, also complains of chills and rigors. She denies any headache, neck pain, chest pain, shortness breath, vomiting, or diarrhea. She does complain of mild nausea and epigastric discomfort. She denies any associated dysuria. The patient lives with her boyfriend and family member at home. She does use a scooter around the house. Symptoms are moderate without any current alleviating or exacerbating factors. PFSH Past Medical History Anxiety: No Depression: No Cancer: No Cardiovascular Problems: Yes Congestive Heart Failure: Yes Diabetes: Yes Patient Takes Glucophage: No Endocrine: Yes Genitourinary: No Hypertension: Yes Immune Disorder: Yes (RA) Musculoskeletal: Yes Neurologic: No Psychiatric: No Reproductive: No Respiratory: No Tetanus Vaccination: Unknown Influenza Vaccination: No ?: Not Past Surgical History AICD: No Arteriovenous Shunt: No Insulin Pump: No Neurologic Surgery: Yes (Cervical fusion 2007) Pacemaker: No Social History Alcohol Use: No Tobacco Use: No Substance Use: No Allergies-Medications (Allergen,Severity, Reaction): Coded Allergies: hydromorphone (Verified Allergy, Unknown, 03/21/17) metformin (Verified Allergy, Unknown, 03/21/17) Reported Meds & Prescriptions Reported Meds & Active Scripts Active Oxycodone-Acetaminophen 10-325 mg Tab 1 Tab PO Q6H PRN Acidophilus/l-Sporogenes (Lactobacillus Acidophilus) 35 Million Cell-25 Million Cell Tab 1 Tab PO TID Keppra (Levetiracetam) 500 Mg Tab 500 Mg PO Q12HR Reported Lantus Inj (Insulin Glargine) 1,000 Unit/10 Ml Vial 40 Units SQ HS Leflunomide 20 Mg Tab 20 Mg PO DAILY Metoprolol Tartrate 50 Mg Tab 50 Mg PO BID Citalopram (Citalopram Hydrobromide) 20 Mg Tab 20 Mg PO DAILY Gabapentin 800 Mg Tab 800 Mg PO TID Baclofen 10 Mg Tab 10 Mg PO Q8HR PRN Hydroxyzine HCl 50 Mg Tab 50 Mg PO BID PRN Ditropan (Oxybutynin Chloride) 5 Mg Tab 5 Mg PO Q12HR PRN Review of Systems Except as stated in HPI: all other systems reviewed are Neg General / Constitutional: Positive: Fever, Chills, Other (rigors) HENT: No: Headaches, Neck Stiffness Cardiovascular: No: Chest Pain or Discomfort Respiratory: No: Shortness of Breath Gastrointestinal: Positive: Nausea, Abdominal Pain (epigastric discomfort), No : Vomiting, Diarrhea Genitourinary: No: Dysuria Musculoskeletal: Positive: Weakness Neurologic: Positive: Weakness, Change in Mentation Physical Exam Narrative GENERAL: Awake, alert, 46-year-old female appears older than her stated age. SKIN: Focused skin assessment warm/dry. Dry flaking skin noted on the extremities. HEAD: Atraumatic. Normocephalic. EYES: Pupils equal and round. Pupils are 4 mm bilateral and reactive. Mild drooping of the left eyelid. ENT: No nasal bleeding or discharge. Dry mucous membranes. NECK: Trachea midline. No JVD. Well-healed scar in the posterior and anterior aspect of the neck. CARDIOVASCULAR: Regular, tachycardic with a heart rate of 120. RESPIRATORY: No accessory muscle use. Diminished in the right base. GASTROINTESTINAL: Abdomen soft, non-tender, nondistended. No epigastric tenderness, guarding, or rigidity. MUSCULOSKELETAL: Rheumatoid arthritic changes noted to the hands bilaterally. Limited range of motion of left upper and left lower extremity. NEUROLOGICAL: Awake and alert. Patient is oriented to person, place, month, year, and manager spring. Mild drooping of the left upper eyelid. Limited range of motion left arm and left leg. Back: No CVA tenderness. Tattoo noted over the low back. PSYCHIATRIC: Appropriate mood and affect; insight and judgment normal. Data Data Last Documented VS Vital Signs Date Time Temp Pulse Resp B/P (MAP) Pulse Ox O2 Delivery O2 Flow Rate FiO2 03/21/17 12:00 99.0 98 17 154/70 (98) 99 Nasal Cannula 2.00 Orders Orders Sepsis Workup Initiated (03/21/17 ) Electrocardiogram (03/21/17 10:06) Complete Blood Count With Diff (03/21/17 10:06) Comprehensive Metabolic Panel (03/21/17 10:06) Prothrombin Time / Inr (Pt) (03/21/17 10:06) Act Partial Throm Time (Ptt) (03/21/17 10:06) Lactic Acid Sepsis Protocol (03/21/17 10:06) Ckmb (Isoenzyme) Profile (03/21/17 10:06) Troponin I (03/21/17 10:06) Urinalysis - C+S If Indicated (03/21/17 10:06) Influenzae A/B Antigen (03/21/17 10:06) Blood Culture (03/21/17 10:06) Chest, Single Ap (03/21/17 10:06) Blood Gas Venous (Vbg) (03/21/17 10:06) Blood Glucose (03/21/17 10:06) Ecg Monitoring (03/21/17 10:06) Iv Access Insert/Monitor (03/21/17 10:06) Oximetry (03/21/17 10:06) Oxygen Administration (03/21/17 10:06) Acetaminophen (Tylenol) (03/21/17 10:15) Sodium Chlor 0.9% 1000 Ml Inj (Ns 1000 M (03/21/17 10:06) Sodium Chlor 0.9% 1000 Ml Inj (Ns 1000 M (03/21/17 10:06) Vascular Access Team Consult/P PRN (03/21/17 10:17) Vascular Poc Ultrasound (03/21/17 ) Cefepime Inj (Maxipime Inj) (03/21/17 11:00) Azithromycin Inj (Zithromax Inj) (03/21/17 11:00) Admit To Inpatient (03/21/17 ) Vital Signs (Adult) Q4H (03/21/17 13:00) Activity Oob With Assistance (03/21/17 13:00) Accounts Payable Payroll Coordinator / Telemetry .CONTINUOUS (03/21/17 13:00) Diet 1800 Ada Cons Carb (03/21/17 Lunch) Diet Heart Healthy (03/21/17 Lunch) Sodium Chloride 0.9% Flush (Ns Flush) (03/21/17 13:00) Sodium Chloride 0.9% Flush (Ns Flush) (03/21/17 21:00) Basic Metabolic Panel (Bmp) (03/22/17 06:00) Complete Blood Count With Diff (03/22/17 06:00) Pt Request For Service (03/21/17 13:00) Case Management Consult (03/21/17 13:00) Naloxone Inj (Narcan Inj) (03/21/17 13:00) Inpatient Certification (03/21/17 ) Admit Order (Ed Use Only) (03/21/17 13:06) Labs Laboratory Tests Test 03/21/17 10:35 White Blood Count 10.9 TH/MM3 Red Blood Count 4.62 MIL/MM3 Hemoglobin 12.4 GM/DL Hematocrit 38.3 % Mean Corpuscular Volume 82.9 FL Mean Corpuscular Hemoglobin 27.0 PG Mean Corpuscular Hemoglobin Concent 32.5 % Red Cell Distribution Width 17.1 % Platelet Count 185 TH/MM3 Mean Platelet Volume 8.2 FL Neutrophils (%) (Auto) 90.0 % Lymphocytes (%) (Auto) 3.6 % Monocytes (%) (Auto) 5.5 % Eosinophils (%) (Auto) 0.2 % Basophils (%) (Auto) 0.7 % Neutrophils # (Auto) 9.8 TH/MM3 Lymphocytes # (Auto) 0.4 TH/MM3 Monocytes # (Auto) 0.6 TH/MM3 Eosinophils # (Auto) 0.0 TH/MM3 Basophils # (Auto) 0.1 TH/MM3 CBC Comment DIFF FINAL Differential Comment Prothrombin Time 10.4 SEC Prothromb Time International Ratio 1.0 RATIO Activated Partial Thromboplast Time 22.9 SEC Urine Color YELLOW Urine Turbidity CLEAR Urine pH 7.5 Urine Specific Alsey 1.016 Urine Protein 100 mg/dL Urine Glucose (UA) NEG mg/dL Urine Ketones NEG mg/dL Urine Occult Blood NEG Urine Nitrite NEG Urine Bilirubin NEG Urine Urobilinogen 2.0 MG/DL Urine Leukocyte Esterase NEG Urine RBC 1 /hpf Urine WBC 1 /hpf Urine Mucus FEW /lpf Microscopic Urinalysis Comment CATH-CULT NOT IND Blood Urea Nitrogen 8 MG/DL Creatinine 0.36 MG/DL Random Glucose 94 MG/DL Total Protein 5.4 GM/DL Albumin 2.5 GM/DL Calcium Level 8.3 MG/DL Alkaline Phosphatase 115 U/L Aspartate Amino Transf (AST/SGOT) 24 U/L Alanine Aminotransferase (ALT/SGPT) 12 U/L Total Bilirubin 0.2 MG/DL Sodium Level 138 MEQ/L Potassium Level 4.1 MEQ/L Chloride Level 103 MEQ/L Carbon Dioxide Level 26.4 MEQ/L Anion Gap 9 MEQ/L Estimat Glomerular Filtration Rate 193 ML/MIN Lactic Acid Level 1.2 mmol/L Total Creatine Kinase 81 U/L Troponin I LESS THAN 0.02 NG/ML MDM Medical Decision Making Medical Screen Exam Complete: Yes Emergency Medical Condition: Yes Medical Record Reviewed: Yes Interpretation(s) EKG reveals sinus tachycardia with a heart rate of 108. Q wave noted in lead 3 and aVF. S1Q3. Last Impressions Chest X-Ray 03/21/17 1006 Signed Impressions: Service Date/Time: Tuesday, March 21, 2017 10:16 - CONCLUSION: Right midlung and left basilar scarring versus minimal infiltrates. Garret Weber MD Laboratory Tests Test 03/21/17 10:35 White Blood Count 10.9 TH/MM3 Red Blood Count 4.62 MIL/MM3 Hemoglobin 12.4 GM/DL Hematocrit 38.3 % Mean Corpuscular Volume 82.9 FL Mean Corpuscular Hemoglobin 27.0 PG Mean Corpuscular Hemoglobin Concent 32.5 % Red Cell Distribution Width 17.1 % Platelet Count 185 TH/MM3 Mean Platelet Volume 8.2 FL Neutrophils (%) (Auto) 90.0 % Lymphocytes (%) (Auto) 3.6 % Monocytes (%) (Auto) 5.5 % Eosinophils (%) (Auto) 0.2 % Basophils (%) (Auto) 0.7 % Neutrophils # (Auto) 9.8 TH/MM3 Lymphocytes # (Auto) 0.4 TH/MM3 Monocytes # (Auto) 0.6 TH/MM3 Eosinophils # (Auto) 0.0 TH/MM3 Basophils # (Auto) 0.1 TH/MM3 CBC Comment DIFF FINAL Differential Comment Prothrombin Time 10.4 SEC Prothromb Time International Ratio 1.0 RATIO Activated Partial Thromboplast Time 22.9 SEC Urine Color YELLOW Urine Turbidity CLEAR Urine pH 7.5 Urine Specific Alsey 1.016 Urine Protein 100 mg/dL Urine Glucose (UA) NEG mg/dL Urine Ketones NEG mg/dL Urine Occult Blood NEG Urine Nitrite NEG Urine Bilirubin NEG Urine Urobilinogen 2.0 MG/DL Urine Leukocyte Esterase NEG Urine RBC 1 /hpf Urine WBC 1 /hpf Urine Mucus FEW /lpf Microscopic Urinalysis Comment CATH-CULT NOT IND Blood Urea Nitrogen 8 MG/DL Creatinine 0.36 MG/DL Random Glucose 94 MG/DL Total Protein 5.4 GM/DL Albumin 2.5 GM/DL Calcium Level 8.3 MG/DL Alkaline Phosphatase 115 U/L Aspartate Amino Transf (AST/SGOT) 24 U/L Alanine Aminotransferase (ALT/SGPT) 12 U/L Total Bilirubin 0.2 MG/DL Sodium Level 138 MEQ/L Potassium Level 4.1 MEQ/L Chloride Level 103 MEQ/L Carbon Dioxide Level 26.4 MEQ/L Anion Gap 9 MEQ/L Estimat Glomerular Filtration Rate 193 ML/MIN Lactic Acid Level 1.2 mmol/L Total Creatine Kinase 81 U/L Troponin I LESS THAN 0.02 NG/ML Differential Diagnosis Differential diagnosis includes sepsis, encephalitis, delirium, UTI, pneumonia, influenza, viral syndrome, dehydration, electrolyte abnormality. Narrative Course IV was established, labs are drawn and sent, and the patient was placed on cardiac telemetry monitoring and continuous pulse oximetry monitoring. EKG was ordered and interpreted. Chest x-ray was obtained. UA was sent to lab. The patient was administered IV fluids. Chest x-ray reveals a right middle lobe infiltrate. The patient was hospitalized in November 2016 for encephalitis at that time. Therefore, will is within the last 3 months, therefore, we'll treat for healthcare acquired pneumonia. The patient received cefepime 2 g intravenously and Zithromax 500 mg intravenously. Rectal temperature was 101.4 , heart rate 1:15, consistent with SIRS criteria. Chest x-ray reveals right middle lobe pneumonia, patient was covered for pneumonia with cefepime and Zithromax. Sepsis Criteria SIRS Criteria (2 or more): Temp > 100.9 or < 96.8, Heart rate over 90 Sepsis Criteria (SIRS+source): Infect source susp/known Criteria Outcome: Meets sepsis criteria Physician Communication Physician Communication The on-call medical service was paged for admission. I discussed the patient with Dr. Whyte who agrees with admission. Diagnosis Primary Impression: Sepsis Qualified Codes: A41.9 - Sepsis, unspecified organism Additional Impression: Pneumonia Qualified Codes: J18.1 - Lobar pneumonia, unspecified organism Condition: Stable Abdon Thompson MD Mar 21, 2017 10:18
--- NOTE | 2017-03-21 10:40 | RADRPT ---
EXAM DATE/TIME: 03/21/2017 10:16 [facility] COMPARISON: CHEST SINGLE AP, December 08, 2016, 1:26. INDICATIONS : Fever. MEDICAL HISTORY : Multiple sclerosis. Diabetes mellitus type II. SURGICAL HISTORY : Fusion, cervical. ENCOUNTER: Initial ACUITY: 1 day PAIN SCORE: 0/10 LOCATION: Bilateral chest FINDINGS: A single view of the chest demonstrates linear densities at left lung base and right midlung. Cardiom egaly. Erosive changes of both humeral heads. Osseous structures are intact. CONCLUSION: Right midlung and left basilar scarring versus minimal infiltrates. Garret Weber MD on March 21, 2017 at 10:37 Board Certified Radiologist. This report was verified electronically.
[2017-03-21] MEDS ORDERED: CEFEPIME INJ 2,000 MG in SODIUM CHLORIDE 0.9% INJ 100 ML IV ONE (11:00)
[2017-03-21] MEDS ORDERED: AZITHROMYCIN INJ 500 MG in SODIUM CHLOR 0.9% 250 ML INJ 250 ML IV ONE (11:00)
[2017-03-21 11:06] LABS: AUTOMATED NEUTROPHIL # 9.8 TH/MM3 (1.8-7.7); BASOPHIL # 0.1 TH/MM3 (0-0.2); BASOPHIL % 0.7 % (0.0-2.0); EOSINOPHIL % 0.2 % (0.0-4.0); HEMATOCRIT 38.3 % (35.0-46.0); HEMOGLOBIN 12.4 GM/DL (11.6-15.3); LYMPH % 3.6 % (9.0-44.0); LYMPHOCYTE # 0.4 TH/MM3 (1.0-4.8); MEAN CELL VOLUME 82.9 FL (80.0-100.0); MEAN CORPUSCULAR HGB CONC 32.5 % (32.0-36.0); MEAN PLATELET VOLUME 8.2 FL (7.0-11.0); MONO % 5.5 % (0.0-8.0); MONOCYTE # 0.6 TH/MM3 (0-0.9); PLATELET COUNT 185 TH/MM3 (150-450); RED BLOOD COUNT 4.62 MIL/MM3 (4.00-5.30); RED CELL DISTRIBUTION WIDTH 17.1 % (11.6-17.2); WHITE BLOOD COUNT 10.9 TH/MM3 (4.0-11.0)
[2017-03-21 11:14] LABS: PROTHROMBIN TIME - PATIENT 10.4 SEC (9.8-11.6)
[2017-03-21 11:36] LABS: ALBUMIN 2.5 GM/DL (3.4-5.0); ALKALINE PHOSPHATASE 115 U/L (45-117); ALT (GPT) 12 U/L (10-53); AST (GOT) 24 U/L (15-37); BICARBONATE 26.4 MEQ/L (21.0-32.0); BLOOD UREA NITROGEN 8 MG/DL (7-18); CALCIUM 8.3 MG/DL (8.5-10.1); CHLORIDE 103 MEQ/L (98-107); CREATININE 0.36 MG/DL (0.50-1.00); GLOMERULAR FILTRATION RATE 193 ML/MIN (>89); GLUCOSE,RANDOM 94 MG/DL (74-106); SODIUM (NA) 138 MEQ/L (136-145); TOTAL BILIRUBIN ADULT 0.2 MG/DL (0.2-1.0); TOTAL PROTEIN 5.4 GM/DL (6.4-8.2); TROPONIN I LESS THAN 0.02 NG/ML (0.02-0.05)
--- NOTE | 2017-03-21 11:42 | EKG ---
Date Performed: 03/21/2017 Time Performed: 10:10:56 PTAGE: 46 years EKG: SINUS TACHYCARDIA WITH SHORT CT INTERVAL INFERIOR MYOCARDIAL INFARCTION ABNORMAL ECG PREVIOUS TRACING : 12/06/2016 09.29 Since the prior tracing, there has been no significant beal DOCTOR: Selma Joseph Interpretating Date/Time 03/21/2017 11:41:16
[2017-03-21 12:00] LABS: BILIRUBIN, URINE NEG (NEG); BLOOD, URINE NEG (NEG); GLUCOSE,URINE NEG (NEG); KETONE, URINE NEG (NEG); MUCUS URINE FEW /lpf (OCC); NITRITE,URINE NEG (NEG); PH, URINE 7.5 (5.0-8.5); URINE COLOR YELLOW (YELLW/STRAW); URINE LEUKOCYTE ESTERASE NEG (NEG)
[2017-03-21] MEDS ORDERED: NALOXONE HCL 0.4 MG/ML AMP IV PUSH PRN (13:00)
--- NOTE | 2017-03-21 15:10 | HHI.HP ---
[facility] Physician Mario Alberto Danielson Jr, DO Admission Diagnosis sepsis, right middle lobe pneumonia Diagnoses: Travel History International Travel<30 Days: No Contact w/Intl Traveler <30 Da: No Traveled to Known Affected Are: No History of Present Illness History from patient, her fianc at the bedside, ER physician communication, and review of medical records. Patient is awake, alert, oriented at the time of my exam. She is actually able to give better history than her fianc at the bedside. She is known to me from her prior hospitalization date on December 06, 2016. At that time, she presented with acute encephalopathy and family at that time gave her a history saying that patient always gets encephalopathic as this evening for a simple UTI. They have also given me history with her recurrent C. difficile at that time for which stool studies were sent and found to be positive for C. difficile. She was evaluated by infectious disease specialist while in hospital. Because her encephalopathy was so severe at that time, there was also thought of encephalitis/meningitis. However all workup was negative. CSF WBC was 15. Her C. difficile was positive. She was hospitalized at that time from December 06, 2016 to December 19, 2016 This time, the family stated that because they know she gets confused very easily with infections, they decided to bring her here early. They realize that she was getting somewhat confused at home. Patient at the time of exam by the ER physician and myself, patient was entirely awake, alert, oriented. She reports that she did have fevers at home which was 12. She denies any cough. However she reports some rattling in her chest. She reports of frequent urination and feeling off a lot of pressure in her bladder area. And when she goes to the bathroom usually, she would have difficulty going because of the pressure. She herself denies any diarrhea at the time of my interview. She reports that she finished her treatment for C. difficile with medications around January. Patient denies any sores or ulcers. No reports are invasive lines. 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 Seizure disorder- takes keppra Osteoporosis Past Surgical History Cervical fusion 2008 pericardial window lumbar sx bilateral hands orif bilateral feet orif left hip replacement Reported Medications pt's mini only remembers names of meds- but not doses; daughter will bring list in am leflunomide prednisone bid dose metoprolol bid dose plavix cefalexin chronically due to hardware infection/ sepsis Allergies: Coded Allergies: hydromorphone (Verified Allergy, Unknown, 03/21/17) metformin (Verified Allergy, Unknown, 03/21/17) Family History younger brother- hyperlipidemia mom- breast cancer dad- prostate cancer, skin cancer Social History no smoking/ drinking etoh/ drugs Physical Exam Vital Signs Vital Signs Date Time Temp Pulse Resp B/P (MAP) Pulse Ox O2 Delivery O2 Flow Rate FiO2 03/21/17 14:00 96 17 124/66 (85) 98 Nasal Cannula 2.00 03/21/17 12:00 99.0 98 17 154/70 (98) 99 Nasal Cannula 2.00 03/21/17 10:17 101.4 03/21/17 10:11 Nasal Cannula 2.00 03/21/17 09:58 95 Room Air 03/21/17 09:58 100.7 115 16 143/82 (102) 95 Physical Exam GENERAL: This is a well-nourished, well-developed patient, in no apparent distress. SKIN: Extremely dry scaly skin HEAD: Atraumatic. Normocephalic. No temporal or scalp tenderness. Eyes: No scleral icterus. Left eye ptosis chronic. No photophobia. ENT: Nose without bleeding, purulent drainage or septal hematoma.. Airway patent. NECK: Trachea midline. No JVD Supple, nontender, no meningeal signs. CARDIOVASCULAR: Regular rate and rhythm without murmurs, gallops, or rubs. RESPIRATORY: Clear to auscultation. Breath sounds equal bilaterally. No wheezes , rales, or rhonchi. GASTROINTESTINAL: Abdomen soft, non-tender, nondistended. No guarding. MUSCULOSKELETAL: Extremities without clubbing, cyanosis, or edema. No calf tenderness. NEUROLOGICAL: Awake and alert. Motor and sensory grossly within normal limits. Normal speech. Laboratory Laboratory Tests Test 03/21/17 10:35 White Blood Count 10.9 Red Blood Count 4.62 Hemoglobin 12.4 Hematocrit 38.3 Mean Corpuscular Volume 82.9 Mean Corpuscular Hemoglobin 27.0 Mean Corpuscular Hemoglobin Concent 32.5 Red Cell Distribution Width 17.1 Platelet Count 185 Mean Platelet Volume 8.2 Neutrophils (%) (Auto) 90.0 Lymphocytes (%) (Auto) 3.6 Monocytes (%) (Auto) 5.5 Eosinophils (%) (Auto) 0.2 Basophils (%) (Auto) 0.7 Neutrophils # (Auto) 9.8 Lymphocytes # (Auto) 0.4 Monocytes # (Auto) 0.6 Eosinophils # (Auto) 0.0 Basophils # (Auto) 0.1 CBC Comment DIFF FINAL Differential Comment Prothrombin Time 10.4 Prothromb Time International Ratio 1.0 Activated Partial Thromboplast Time 22.9 Urine Color YELLOW Urine Turbidity CLEAR Urine pH 7.5 Urine Specific [place] 1.016 Urine Protein 100 Urine Glucose (UA) NEG Urine Ketones NEG Urine Occult Blood NEG Urine Nitrite NEG Urine Bilirubin NEG Urine Urobilinogen 2.0 Urine Leukocyte Esterase NEG Urine RBC 1 Urine WBC 1 Urine Mucus FEW Microscopic Urinalysis Comment CATH-CULT NOT IND Blood Urea Nitrogen 8 Creatinine 0.36 Random Glucose 94 Total Protein 5.4 Albumin 2.5 Calcium Level 8.3 Alkaline Phosphatase 115 Aspartate Amino Transf (AST/SGOT) 24 Alanine Aminotransferase (ALT/SGPT) 12 Total Bilirubin 0.2 Sodium Level 138 Potassium Level 4.1 Chloride Level 103 Carbon Dioxide Level 26.4 Anion Gap 9 Estimat Glomerular Filtration Rate 193 Lactic Acid Level 1.2 Total Creatine Kinase 81 Troponin I LESS THAN 0.02 Date/Time Source Procedure Growth Status 03/21/17 10:35 Blood Peripheral Aerobic Blood Culture Pending Received 03/21/17 10:35 Blood Peripheral Anaerobic Blood Culture Pending Received 03/21/17 10:35 Nasal Aspirate Influenza Types A,B Antigen (YING) - Final NEGATIVE FOR FLU A AND B ANTIGEN.... Complete Result Diagram: 03/21/17 1035 03/21/17 1035 Imaging Last 48 hours Impressions Chest X-Ray 03/21/17 1006 Signed Impressions: Service Date/Time: Tuesday, March 21, 2017 10:16 - CONCLUSION: Right midlung and left basilar scarring versus minimal infiltrates. Garret Weber MD Toe X-Ray 03/21/17 0000 Signed Impressions: Service Date/Time: Tuesday, March 21, 2017 15:45 - CONCLUSION: 1. 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 2. Prior compression screw fixation of the first MTP. 3. No acute fracture. Jorden Nina MD Caprinvioleta VTE Risk Assessment Caprini VTE Risk Assessment: Mod/High Risk (score >= 2) Caprini Risk Assessment Model Point Value = 1 Point Value = 2 Point Value = 3 Point Value = 5 Age 41-60 Minor surgery BMI > 25 kg/m2 Swollen legs Varicose veins or History of unexplained or recurrent spontaneous Oral contraceptives or hormone replacement Sepsis (< 1 month) Serious lung disease, including pneumonia (< 1 month) Abnormal pulmonary function Acute myocardial infarction Congestive heart failure (< 1 month) History of inflammatory bowel disease Medical patient at bed rest Age 61-74 Arthroscopic surgery Major open surgery (> 45 min) Laparoscopic surgery (> 45 min) Malignancy Confined to bed (> 72 hours) Immobilizing plaster cast Central venous access Age >= 75 History of VTE Family history of VTE Factor V Leiden Prothrombin [id number] Lupus anticoagulant Anticardiolipin antibodies Elevated serum homocysteine Heparin-induced thrombocytopenia Other congenital or acquired thrombophilia Stroke (< 1 month) Elective arthroplasty Hip, pelvis, or leg fracture Acute spinal cord injury (< 1 month) Prophylaxis Regimen Total Risk Factor Score Risk Level Prophylaxis Regimen 0-1 Low Early ambulation 2 Moderate Order ONE of the following: *Sequential Compression Device (SCD) *Heparin 5000 units SQ BID 3-4 Higher Order ONE of the following medications: *Heparin 5000 units SQ TID *Enoxaparin/Lovenox 40 mg SQ daily (WT < 150 kg, CrCl > 30 mL/min) *Enoxaparin/Lovenox 30 mg SQ daily (WT < 150 kg, CrCl > 10-29 mL/min) *Enoxaparin/Lovenox 30 mg SQ BID (WT < 150 kg, CrCl > 30 mL/min) AND/OR *Sequential Compression Device (SCD) 5 or more Highest Order ONE of the following medications: *Heparin 5000 units SQ TID (Preferred with Epidurals) *Enoxaparin/Lovenox 40 mg SQ daily (WT < 150 kg, CrCl > 30 mL/min) *Enoxaparin/Lovenox 30 mg SQ daily (WT < 150 kg, CrCl > 10-29 mL/min) *Enoxaparin/Lovenox 30 mg SQ BID (WT < 150 kg, CrCl > 30 mL/min) AND *Sequential Compression Device (SCD) Assessment and Plan Assessment and Plan Impression: Right middle lobe pneumonia Possible underlying sepsis Fever at home Immunocompromised state DM HTN pericardial effusion pericardial tamponade- s/p window RA, immunocompromised 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 Will continue same for nosocomial pneumonia. However would watch out for C. difficile since patient has had significant history. However patient denies diarrhea at home. Monitor fingersticks and cover with sliding scale coverage. Orders have been written to obtain patient's med list from her pharmacy. Current med reconciliation was done without asking family members and patient. For now, patient is able to verify her prednisone dose and her Keppra dose. We' ll resume that. We'll follow culture results. Patient has signs and symptoms suggestive of dehydration on clinical exam. She refused for IV hydration at this point. Therefore I would hydrate her orally. She is told that if she does have any signs and symptoms of worsening infection, we would have to give her IV fluids. DVT prophylaxis with Lovenox. Discussed Condition With Patient, anika at the bedside, ER physician Physician Certification 2 Midnight Certification Type: Admission for Inpatient Services Order for Inpatient Services The services are ordered in accordance with Medicare regulations or non- Medicare payer requirements, as applicable. In the case of services not specified as inpatient-only, they are appropriately provided as inpatient services in accordance with the 2-midnight benchmark. Estimated LOS (days): 2 days is the estimated time the patient will need to remain in the hospital, assuming treatment plan goals are met and no additional complications. Post-Hospital Plan: Home Yogesh Whyte MD Mar 21, 2017 15:10
[2017-03-21] MEDS ORDERED: FREE WATER PO SCH (16:00)
--- NOTE | 2017-03-21 16:22 | RADRPT ---
EXAM DATE/TIME: 03/21/2017 15:45 [facility] COMPARISON: HAND LEFT LIMITED (2VWS), December 06, 2016, 20:04. INDICATIONS : Left great toe pain for 2 weeks with no known injury MEDICAL HISTORY : Diabetes mellitus type II. Hypertension SURGICAL HISTORY : Left great toe joint relacement ENCOUNTER: Initial ACUITY: 2 weeks PAIN SCORE: 8/10 LOCATION: Left distal great toe FINDINGS: Osseous structures are diffusely osteopenic. Prior compression screw fixation of the first MTP. Resor ption of the first tuft. Prominent erosive changes of the metatarsophalangeal and proximal interphala ngeal joints. No evidence for acute fracture. Extensive vascular calcifications. Soft tissues are anabell ssly unremarkable. CONCLUSION: 1. 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 2. Prior compression screw fixation of the first MTP. 3. No acute fracture. Jorden Nina MD on March 21, 2017 at 16:11 Board Certified Radiologist. This report was verified electronically.
[2017-03-21] MEDS ORDERED: metroNIDAZOLE 500 MG INJ 100 ML IV SCH (18:30)
[2017-03-21] MEDS ORDERED: LORazepam 2 MG/ML VIAL IV PUSH ONE (18:30)
[2017-03-21] MEDS: FREE WATER PO SCH ×2 (20:00→22:00)
[2017-03-21] MEDS: SODIUM CHLORIDE 0.9% FLUSH 10 ML FLUSH IV FLUSH SCH (20:13)
[2017-03-21] MEDS: metroNIDAZOLE 500 MG INJ 100 ML IV SCH (20:13)
[2017-03-21] MEDS: LACTOBACILLUS ACIDOPHILUS TAB PO SCH (20:13)
[2017-03-21] MEDS: VANCOMYCIN 500 MG VIAL (FOR ORAL USE ONLY) PO SCH ×2 (20:13→20:27)
[2017-03-21] MEDS: FAMOTIDINE 20 MG TAB PO SCH (20:14)
[2017-03-21] MEDS: predniSONE 5 MG TAB PO SCH (20:14)
[2017-03-21] MEDS: oxyCODONE/ACETAMINOPHEN 10 MG/325 MG TAB PO PRN (20:14)
[2017-03-21] MEDS: levETIRAcetam 500 MG TAB PO SCH (20:14)
[2017-03-21] MEDS: LABETALOL HCL 100 MG/20 ML VIAL IV PUSH PRN (20:45)
[2017-03-21] MEDS: CEFEPIME INJ 1,000 MG in SODIUM CHLORIDE 0.9% INJ 100 ML IV SCH (23:08)
[2017-03-22] VITALS (12 sets, daily range): BP systolic 106–174; BP diastolic 61–87; PULSE 103–120; RESP 19–22; TEMP 98.4–100.9; O2SAT 95–99
[2017-03-22] MEDS: FREE WATER PO SCH ×6 (00:57→20:35)
[2017-03-22] MEDS: LABETALOL HCL 100 MG/20 ML VIAL IV PUSH PRN ×4 (02:08→19:52)
[2017-03-22] MEDS: metroNIDAZOLE 500 MG INJ 100 ML IV SCH ×3 (02:08→13:00)
[2017-03-22] MEDS: oxyCODONE/ACETAMINOPHEN 10 MG/325 MG TAB PO PRN ×2 (02:08→21:22)
[2017-03-22] MEDS: SODIUM CHLORIDE 0.9% FLUSH 10 ML FLUSH IV FLUSH SCH ×2 (08:04→20:35)
[2017-03-22] MEDS ORDERED: AZITHROMYCIN INJ 500 MG in SODIUM CHLOR 0.9% 250 ML INJ 250 ML IV SCH (09:00)
[2017-03-22] MEDS: VANCOMYCIN 500 MG VIAL (FOR ORAL USE ONLY) PO SCH ×4 (09:26→20:35)
[2017-03-22] MEDS: LACTOBACILLUS ACIDOPHILUS TAB PO SCH ×3 (09:26→16:55)
[2017-03-22] MEDS: FAMOTIDINE 20 MG TAB PO SCH ×2 (09:26→20:35)
[2017-03-22] MEDS: predniSONE 5 MG TAB PO SCH ×2 (09:26→20:35)
[2017-03-22] MEDS: levETIRAcetam 500 MG TAB PO SCH ×2 (09:26→20:35)
[2017-03-22] MEDS: SODIUM CHLORIDE 0.9% FLUSH 10 ML FLUSH IV FLUSH PRN (10:28)
[2017-03-22] MEDS ORDERED: ONDANSETRON HCL 4 MG/2 ML VIAL IV PUSH PRN (10:45)
[2017-03-22] MEDS: CEFEPIME INJ 1,000 MG in SODIUM CHLORIDE 0.9% INJ 100 ML IV SCH (10:50)
[2017-03-22 11:04] LABS: BICARBONATE 20.5 MEQ/L (21.0-32.0); CREATININE 0.37 MG/DL (0.50-1.00)
[2017-03-22 11:50] LABS: AUTOMATED NEUTROPHIL # 8.4 TH/MM3 (1.8-7.7); BASOPHIL % 0.5 % (0.0-2.0); EOSINOPHIL % 0.2 % (0.0-4.0); HEMATOCRIT 40.9 % (35.0-46.0); HEMOGLOBIN 13.6 GM/DL (11.6-15.3); LYMPH % 7.4 % (9.0-44.0); LYMPHOCYTE # 0.7 TH/MM3 (1.0-4.8); MEAN CELL VOLUME 82.3 FL (80.0-100.0); MEAN CORPUSCULAR HEMOGLOBIN 27.4 PG (27.0-34.0); MEAN CORPUSCULAR HGB CONC 33.3 % (32.0-36.0); MONO % 7.5 % (0.0-8.0); MONOCYTE # 0.8 TH/MM3 (0-0.9); NEUT % 84.4 % (16.0-70.0); PLATELET COUNT 147 TH/MM3 (150-450); RED BLOOD COUNT 4.97 MIL/MM3 (4.00-5.30); RED CELL DISTRIBUTION WIDTH 17.1 % (11.6-17.2)
--- NOTE | 2017-03-22 11:57 | PD.ID.CON ---
History of Present Illness Service ID Consult Requested By Reason for Consult Evaluation and M'ment of Sepsis in an Immune compromised patient. Primary Care Physician Mario Alberto Danielson Jr, DO Diagnoses: History of Present Illness Patient known to me from past admission in Nov 2016. Some history obtained from Mother in the room. is a 46 y/o CM with PMHx of DM2, HTN, ? reported history of Multiple Sclerosis(s/b neurologist in past), RA on prednisone and leflulonamide, h.o Cdiff, h/o spine infection on keflex usp, Osteoporosis ? secondary to prednisone. She used to walk 6 years back then subsequently became wheel chair bound for trips. The patient is now in crippling pain secondary to RA constant neck pain inability to move neck. She sleeps in her wheel chair and has not slept in bed for years. Patient is mostly wheel chair bound but is able to walk short distances. During that November admission in 2016 patient had bilateral lower extremity cellulitis as well as diagnosed with C. difficile during that admission. Meningoencephalitis workup was negative. Patient follows at baseline with [facility] (Rheum) and (ID). 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 She also has hardware in her cervical spine which unfortunately cannot be removed due to stability issues. After her November admission patient was discharged home and was back to her normal self which is sleeping in her wheelchair and needing assistance to even go to the bathroom. Approximately 2 weeks back patient's mother noticed worsening mental status and patient not eating much. Approximately a day prior to admission patient apparently had fever 101 associated with rigors and hence was brought to the hospital for further evaluation. Patient met criteria for sepsis on admission. Blood cultures done on admission are positive for gram-negative rods and infectious disease is consulted for the same. Review of Systems ROS Limitations: Clinical Condition Past Family Social History Allergies: Coded Allergies: hydromorphone (Verified Allergy, Unknown, 03/21/17) metformin (Verified Allergy, Unknown, 03/21/17) Past Medical History DM HTN MS RA, immunocompromised Questionable CHF Osteoporosis Past Surgical History Cervical fusion 2007 Reported Medications Reported Meds & Active Scripts Active Oxycodone-Acetaminophen 10-325 mg Tab 1 Tab PO Q6H PRN Acidophilus/l-Sporogenes (Lactobacillus Acidophilus) 35 Million Cell-25 Million Cell Tab 1 Tab PO TID Keppra (Levetiracetam) 500 Mg Tab 500 Mg PO Q12HR Reported Lantus Inj (Insulin Glargine) 1,000 Unit/10 Ml Vial 40 Units SQ HS Leflunomide 20 Mg Tab 20 Mg PO DAILY Metoprolol Tartrate 50 Mg Tab 50 Mg PO BID Citalopram (Citalopram Hydrobromide) 20 Mg Tab 20 Mg PO DAILY Gabapentin 800 Mg Tab 800 Mg PO TID Baclofen 10 Mg Tab 10 Mg PO Q8HR PRN Hydroxyzine HCl 50 Mg Tab 50 Mg PO BID PRN Ditropan (Oxybutynin Chloride) 5 Mg Tab 5 Mg PO Q12HR PRN Active Ordered Medications Current Medications Medications (Trade) Dose Ordered Sig/Fuentes Route Start Time Stop Time Status Last Admin (NS Flush) 2 ml UNSCH PRN IV FLUSH 03/21/17 13:00 03/22/17 10:28 (NS Flush) 2 ml BID IV FLUSH 03/21/17 21:00 03/22/17 08:04 (Narcan Inj) 0.4 mg UNSCH PRN IV PUSH 03/21/17 13:00 (Lactinex) 1 tab TID PO 03/21/17 18:00 03/22/17 13:00 (Keppra) 500 mg Q12HR PO 03/21/17 21:00 03/22/17 09:26 (Percocet 10-325 Mg) 1 tab Q6H PRN PO 03/21/17 15:30 03/22/17 02:08 Cefepime HCl 1000 mg/Sodium Chloride 100 ml @ 200 mls/hr Q12H IV 03/21/17 23:00 03/22/17 10:50 Azithromycin 500 mg/Sodium Chloride 250 ml @ 250 mls/hr Q24H IV 03/22/17 09:00 03/22/17 09:26 (Deltasone) 5 mg BID PO 03/21/17 21:00 03/22/17 09:26 (Pepcid) 20 mg Q12HR PO 03/21/17 21:00 03/22/17 09:26 (VANCOMYCIN for oral use only) 500 mg QID PO 03/21/17 18:30 03/22/17 13:00 Metronidazole 100 ml @ 100 mls/hr Q6H IV 03/21/17 20:00 03/22/17 13:00 (Free Water) VOLUME OF WATER: 200 ML... Q4H PO 03/21/17 18:00 03/22/17 13:00 (Tylenol) 650 mg Q4H PRN PO 03/21/17 19:45 (Trandate Inj) 10 mg Q20M PRN IV PUSH 03/21/17 20:45 03/22/17 10:28 (Zofran Inj) 4 mg Q6HR PRN IV PUSH 03/22/17 10:45 03/22/17 13:00 Family History Reviewed and noncontributory to current ID problem. Social History Lives with significant other, has a 22 yr old daughter that lives with them. Ex is a door liner and helps out the daughter over phone from somewhere in [place]. No alcohol, no smoking, no illicit drugs. Physical Exam Vital Signs Vital Signs Date Time Temp Pulse Resp B/P (MAP) Pulse Ox O2 Delivery O2 Flow Rate FiO2 03/22/17 10:00 114 03/22/17 08:00 98.4 103 19 110/61 (77) 98 03/22/17 08:00 103 03/22/17 06:00 106 03/22/17 04:00 99.3 104 20 106/63 (77) 95 03/22/17 04:00 104 03/22/17 02:00 115 03/22/17 00:00 120 03/22/17 00:00 100.9 120 22 143/76 (98) 97 03/21/17 22:00 128 03/21/17 20:00 145 03/21/17 20:00 101.3 145 26 190/80 (116) 97 03/21/17 19:32 102.0 146 20 188/109 (135) 95 03/21/17 17:13 98.8 68 20 185/87 (119) 97 03/21/17 14:00 96 17 124/66 (85) 98 Nasal Cannula 2.00 03/21/17 12:00 99.0 98 17 154/70 (98) 99 Nasal Cannula 2.00 Physical Exam GENERAL: Obese, Cushingoid appearing patient. No cardiopulm distress. SKIN: Joints with significant deformities [place] of upper extremities. Upper extremity again difficult to assess but area of chronic scabbing with surrounding erythema. HEAD: Atraumatic. Normocephalic. No temporal or scalp tenderness. EYES: Pupils equal round and reactive. Extraocular motions intact. No scleral icterus. No injection or drainage. ENT: Nose without bleeding, purulent drainage. NECK: Trachea midline. Large neck. No lymphadenopathy. Hardware in neck ? chronic neck stiffness based on prior exams. CARDIOVASCULAR: Regular rate and rhythm without murmurs. RESPIRATORY: Clear to auscultation. Breath sounds equal bilaterally. No wheezes , rales, or rhonchi. GASTROINTESTINAL: Abdomen soft, non-tender, nondistended. MUSCULOSKELETAL: Extremities without clubbing, cyanosis, or edema. Rest as described under skin section. NEUROLOGICAL: Awake and alert, Ox3, NF, followed commands for me. Psych: cooperative IV line sites with no e.o infection. Laboratory Laboratory Tests Test 03/21/17 18:49 03/22/17 10:15 03/22/17 11:35 Stool C. difficile Toxin (PCR) NEGATIVE Stl C. difficile Toxin Epiderm 027 PRESUMPTIVE NEGATIVE Blood Urea Nitrogen 9 Creatinine 0.37 Random Glucose 88 Calcium Level 8.0 Sodium Level 140 Potassium Level 3.1 Chloride Level 108 Carbon Dioxide Level 20.5 Anion Gap 12 Estimat Glomerular Filtration Rate 187 White Blood Count 10.0 Red Blood Count 4.97 Hemoglobin 13.6 Hematocrit 40.9 Mean Corpuscular Volume 82.3 Mean Corpuscular Hemoglobin 27.4 Mean Corpuscular Hemoglobin Concent 33.3 Red Cell Distribution Width 17.1 Platelet Count 147 Mean Platelet Volume 8.0 Neutrophils (%) (Auto) 84.4 Lymphocytes (%) (Auto) 7.4 Monocytes (%) (Auto) 7.5 Eosinophils (%) (Auto) 0.2 Basophils (%) (Auto) 0.5 Neutrophils # (Auto) 8.4 Lymphocytes # (Auto) 0.7 Monocytes # (Auto) 0.8 Eosinophils # (Auto) 0.0 Basophils # (Auto) 0.0 CBC Comment DIFF FINAL Differential Comment Date/Time Source Procedure Growth Status 03/21/17 10:35 Blood Peripheral Aerobic Blood Culture - Preliminary Gram Negative [place] Resulted 03/21/17 10:35 Blood Peripheral Anaerobic Blood Culture - Preliminary NO GROWTH IN 1 DAY Resulted 03/21/17 10:35 Nasal Aspirate Influenza Types A,B Antigen (YING) - Final NEGATIVE FOR FLU A AND B ANTIGEN.... Complete Result Diagram: 03/22/17 1135 03/22/17 1015 Imaging Last Impressions Chest X-Ray 03/21/17 1006 Signed Impressions: Service Date/Time: Tuesday, March 21, 2017 10:16 - CONCLUSION: Right midlung and left basilar scarring versus minimal infiltrates. Garret Weber MD Toe X-Ray 03/21/17 0000 Signed Impressions: Service Date/Time: Tuesday, March 21, 2017 15:45 - CONCLUSION: 1. 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 2. Prior compression screw fixation of the first MTP. 3. No acute fracture. Jorden Nina MD Assessment and Plan Assessment and Plan Sepsis present on admission. Gram-negative [place] bacteremia source unknown at the present time workup in progress Pneumonia CAP vs Possible aspiration pneumonia Rheumatoid arthritis on immunosuppressants, Immunecompromised ? multiple sclerosis. h/o Cdiff Recs: Continue Cefepime IV Repeat blood cultures x 2 DC Azithro IV DC flagyl IV (can worsen encephalopathy) Continue oral vanco. follow cultures follow clinically. teresew RN [email or web address] Mother Will consider palliative care as patient has seen them in past. For addressing goals of care. Priscilla Corey MD Mar 22, 2017 11:57
[2017-03-22] MEDS ORDERED: DIATRIZOATE MEGLUM/DIATRIZOATE SOD 9 ML CUP PO ONE (16:30)
[2017-03-22] MEDS: CEFEPIME INJ 2,000 MG in SODIUM CHLORIDE 0.9% INJ 100 ML IV SCH (16:56)
[2017-03-22] MEDS ORDERED: LORazepam 2 MG/ML VIAL IV PUSH PRN (18:30)
--- NOTE | 2017-03-22 19:07 | HHI.PR ---
Subjective Remarks Persisting problem of encephalopathy through today. Patient has no specific complaints of pain, says she isn't pain everywhere. Symptoms of expressive aphasia, patient has had stroke in the past. Family expresses that whenever she gets infections she is often like this but she's had a stroke in the past with infection also. Patient can express no specific complaints. Objective Vital Signs Date Time Temp Pulse Resp B/P (MAP) Pulse Ox O2 Delivery O2 Flow Rate FiO2 03/22/17 18:00 104 03/22/17 16:00 99.2 114 22 145/75 (98) 99 03/22/17 16:00 109 03/22/17 14:00 115 03/22/17 12:00 113 03/22/17 12:00 99.8 115 20 159/74 (102) 99 03/22/17 10:00 114 03/22/17 08:00 98.4 103 19 110/61 (77) 98 03/22/17 08:00 103 03/22/17 06:00 106 03/22/17 04:00 99.3 104 20 106/63 (77) 95 03/22/17 04:00 104 03/22/17 02:00 115 03/22/17 00:00 120 03/22/17 00:00 100.9 120 22 143/76 (98) 97 03/21/17 22:00 128 03/21/17 20:00 145 03/21/17 20:00 101.3 145 26 190/80 (116) 97 03/21/17 19:32 102.0 146 20 188/109 (135) 95 I/O 03/21/17 03/21/17 03/21/17 03/22/17 03/22/17 03/22/17 07:00 15:00 23:00 07:00 15:00 23:00 Intake Total 2150 ml 2100 ml 800 ml 450 ml 1200 ml Output Total 700 ml 800 ml Balance 2150 ml 2100 ml 100 ml 450 ml 400 ml Intake Oral 600 ml 1200 ml IV Total 2150 ml 2100 ml 200 ml 450 ml Output Urine Total 700 ml 400 ml Stool Total 400 ml # Voids 1 4 1 # Bowel Movements 1 6 Result Diagram: 03/22/17 1135 03/22/17 1015 Objective Remarks GENERAL: NAD, A&Ox0 HEAD: Normocephalic. NECK: Supple, trachea midline. No lymphadenopathy. EYES: No scleral icterus. No injection or drainage. CARDIOVASCULAR: Regular rate, tachycardia, without murmurs, gallops, or rubs. RESPIRATORY: Breath sounds equal bilaterally. No accessory muscle use. GASTROINTESTINAL: Abdomen soft, non-tender, nondistended. MUSCULOSKELETAL: No cyanosis, or edema. SKIN: Warm and dry. NEURO: No focal neurological deficitis. A/P Problem List: (1) Pneumonia ICD Code: J18.9 - Pneumonia, unspecified organism Status: Acute (2) Sepsis ICD Code: A41.9 - Sepsis, unspecified organism (3) Physical deconditioning ICD Code: R53.81 - Other malaise Assessment and Plan 46-year-old female admitted secondary to sepsis Right middle lobe pneumonia Sepsis Baseline Immunocompromised state Continue cefepime Continue azithromycin Workup expanded to include CT of abdomen and pelvis, to screen for infection Continue oxygen as needed Following in ICU Hypertension Continue baseline treatment Follow blood pressures Adjust treatments as needed pericardial effusion history pericardial tamponade- s/p window Follow clinically RA Osteoporosis immunocompromised No change to baseline treatment History of CVA Acute Expressive aphasia Chronic left-sided weakness May be contributory to encephalopathy Evaluate for acute CVA or brain bleed with head CT Seizure disorder Continue Keppra Diabetes mellitus type 2 Follow blood sugars Insulin sliding scale Diabetic diet DVT prophylaxis Lovenox. Problem Qualifiers (1) Pneumonia: Qualified Codes: J18.1 - Lobar pneumonia, unspecified organism (2) Sepsis: Qualified Codes: A41.9 - Sepsis, unspecified organism Joel Shea MD Mar 22, 2017 19:07
[2017-03-22] MEDS ORDERED: IOHEXOL 350 MG/ML 10 ML VIAL (for RAD DIAG) IVCONTRAST ONE (20:26)
[2017-03-22] MEDS: POTASSIUM CHLOR 20 MEQ PREMIX 100 ML IV SCH ×2 (20:35→22:31)
--- NOTE | 2017-03-22 20:44 | RADRPT ---
EXAM DATE/TIME: 03/22/2017 20:16 [facility] COMPARISON: MRI BRAIN W & W/O CONTRAST, December 11, 2016, 18:08. CT BRAIN W/O CONTRAST, December 10, 2016, 2:28. INDICATIONS : Altered mental status. RADIATION DOSE: 56.35 CTDIvol (mGy) MEDICAL HISTORY : Hypertension. Diabetes mellitus type 2. Rheumatoid arthritis. SURGICAL HISTORY : Hip replacement. ENCOUNTER: Initial ACUITY: 1 day PAIN SCALE: 5/10 LOCATION: cranial TECHNIQUE: Multiple contiguous axial images were obtained of the head. Using automated exposure control and adj ustment of the mA and/or kV according to patient size, radiation dose was kept as low as reasonably a chievable to obtain optimal diagnostic quality images. DICOM format image data is available electro nically for review and comparison. FINDINGS: CEREBRUM: The ventricles are normal for age. No evidence of midline shift, mass lesion, hemorrhage or acute in farction. No extra-axial fluid collections are seen. Chronic low attenuation again seen in the periv entricular white matter. POSTERIOR FOSSA: The cerebellum and brainstem are intact. The 4th ventricle is midline. The cerebellopontine angle i s unremarkable. EXTRACRANIAL: The visualized portion of the orbits is intact. SKULL: The calvaria is intact. No evidence of skull fracture. CONCLUSION: No evidence of acute cardiopulmonary disease. Prominent chronic white matter changes for a patient th is age. Marcus Devi MD on March 22, 2017 at 20:40 Board Certified Radiologist. This report was verified electronically.
--- NOTE | 2017-03-22 20:51 | RADRPT ---
EXAM DATE/TIME: 03/22/2017 20:18 [facility] COMPARISON: CT ABDOMEN & PELVIS W CONTRAST, December 06, 2016, 3:21. INDICATIONS : Abdominal pain, evaluate abscess. IV CONTRAST: 100 cc Omnipaque 350 (iohexol) IV ORAL CONTRAST: Prescribed oral contrast ingested. RADIATION DOSE: 6.91 CTDIvol (mGy) MEDICAL HISTORY : Congestive heart failure. Hypertension. Diabetes mellitus type 2.RA. SURGICAL HISTORY : Hip replacment. ENCOUNTER: Initial ACUITY: 1 day PAIN SCALE: 5/10 LOCATION: abdomen TECHNIQUE: Volumetric scanning of the abdomen and pelvis was performed. Using automated exposure control and ad justment of the mA and/or kV according to patient size, radiation dose was kept as low as reasonably achievable to obtain optimal diagnostic quality images. DICOM format image data is available electro nically for review and comparison. FINDINGS: LOWER LUNGS: The visualized lower lungs are clear. LIVER: Homogeneous density without lesion. There is no dilation of the biliary tree. No calcified gallston es. SPLEEN: Normal size without lesion. PANCREAS: Within normal limits. KIDNEYS: 3 mm nonobstructing stone right mid zone, unchanged. ADRENAL GLANDS: Within normal limits. VASCULAR: Atherosclerotic calcification seen of the abdominal aorta and branch vessels. No aneurysm. BOWEL/MESENTERY: Mild diffuse wall thickening seen in the colon. There is small fluid present, mainly in the rectum. N o obstruction, abscess or free air. ABDOMINAL WALL: Within normal limits. RETROPERITONEUM: There is no lymphadenopathy. BLADDER: No wall thickening or mass. REPRODUCTIVE: Within normal limits. INGUINAL: There is no lymphadenopathy or hernia. MUSCULOSKELETAL: Fractures with nonunion are seen including the right superior and inferior pubic rami and the left si de of the sacrum. Numerous vertebral body compression fractures are noted. I don't see definite acute fracture. CONCLUSION: 1. Mild, diffuse colitis in the proper clinical setting. This is nonspecific, presumably infectious o r inflammatory. No abscess, perforation or obstruction. 2. Chronic/unchange findings otherwise including multiple nonacute fractures and a tiny nonobstructin g stone of the right kidney. Marcus Devi MD on March 22, 2017 at 20:43 Board Certified Radiologist. This report was verified electronically.
[2017-03-23] VITALS (10 sets, daily range): BP systolic 159–185; BP diastolic 80–92; PULSE 82–110; RESP 17–30; TEMP 97.6–99.4; O2SAT 96–100
--- NOTE | 2017-03-23 00:10 | EKG ---
Date Performed: 03/21/2017 Time Performed: 12:14:10 PTAGE: 46 years EKG: Sinus rhythm POSSIBLE INFERIOR MYOCARDIAL INFARCTION BORDERLINE ECG INTERPRETATION BASED ON A DEFAULT AGE OF 39 Y EARS PREVIOUS TRACING : 03/21/2017 10.10 Since the prior tracing, there has been no significan t change DOCTOR: Bernard Rea Interpretating Date/Time 03/23/2017 00:08:46
[2017-03-23] MEDS: CEFEPIME INJ 2,000 MG in SODIUM CHLORIDE 0.9% INJ 100 ML IV SCH ×3 (00:56→18:30)
[2017-03-23] MEDS: FREE WATER PO SCH ×6 (02:00→22:00)
[2017-03-23] MEDS: oxyCODONE/ACETAMINOPHEN 10 MG/325 MG TAB PO PRN ×2 (03:41→08:20)
[2017-03-23] MEDS: LABETALOL HCL 100 MG/20 ML VIAL IV PUSH PRN ×3 (03:42→11:45)
[2017-03-23] MEDS: VANCOMYCIN 500 MG VIAL (FOR ORAL USE ONLY) PO SCH ×4 (08:13→22:34)
[2017-03-23] MEDS: SODIUM CHLORIDE 0.9% FLUSH 10 ML FLUSH IV FLUSH SCH ×2 (08:13→22:34)
[2017-03-23] MEDS: SODIUM CHLORIDE 0.9% FLUSH 10 ML FLUSH IV FLUSH PRN (08:13)
[2017-03-23] MEDS: levETIRAcetam 500 MG TAB PO SCH ×2 (08:13→22:33)
[2017-03-23] MEDS: FAMOTIDINE 20 MG TAB PO SCH ×2 (08:13→22:34)
[2017-03-23] MEDS: predniSONE 5 MG TAB PO SCH ×2 (08:13→22:33)
[2017-03-23] MEDS: LACTOBACILLUS ACIDOPHILUS TAB PO SCH ×3 (08:13→18:19)
[2017-03-23 08:18] LABS: AUTOMATED NEUTROPHIL # 5.6 TH/MM3 (1.8-7.7); BASOPHIL % 0.5 % (0.0-2.0); EOSINOPHIL # 0.1 TH/MM3 (0-0.4); EOSINOPHIL % 1.1 % (0.0-4.0); HEMATOCRIT 39.4 % (35.0-46.0); HEMOGLOBIN 12.8 GM/DL (11.6-15.3); LYMPHOCYTE # 0.7 TH/MM3 (1.0-4.8); MEAN CELL VOLUME 82.9 FL (80.0-100.0); MEAN CORPUSCULAR HGB CONC 32.6 % (32.0-36.0); MEAN PLATELET VOLUME 8.3 FL (7.0-11.0); MONO % 8.9 % (0.0-8.0); MONOCYTE # 0.6 TH/MM3 (0-0.9); NEUT % 79.5 % (16.0-70.0); PLATELET COUNT 156 TH/MM3 (150-450); RED BLOOD COUNT 4.75 MIL/MM3 (4.00-5.30); RED CELL DISTRIBUTION WIDTH 17.2 % (11.6-17.2); WHITE BLOOD COUNT 7.1 TH/MM3 (4.0-11.0)
[2017-03-23 08:42] LABS: ALBUMIN 2.5 GM/DL (3.4-5.0); ALKALINE PHOSPHATASE 144 U/L (45-117); ALT (GPT) 35 U/L (10-53); AST (GOT) 32 U/L (15-37); BICARBONATE 19.2 MEQ/L (21.0-32.0); BLOOD UREA NITROGEN 7 MG/DL (7-18); CALCIUM 8.2 MG/DL (8.5-10.1); CHLORIDE 105 MEQ/L (98-107); CREATININE 0.23 MG/DL (0.50-1.00); GLOMERULAR FILTRATION RATE 324 ML/MIN (>89); GLUCOSE,RANDOM 67 MG/DL (74-106); SODIUM (NA) 136 MEQ/L (136-145); TOTAL BILIRUBIN ADULT 0.3 MG/DL (0.2-1.0); TOTAL PROTEIN 5.9 GM/DL (6.4-8.2)
[2017-03-23] MEDS: POTASSIUM CHLOR 20 MEQ PREMIX 100 ML IV SCH ×2 (09:50→11:52)
--- NOTE | 2017-03-23 10:50 | HHI.PR ---
Subjective Remarks She does not yet to baseline. Improvement in encephalopathy is seen today. CT imaging shows no evidence of abscess. Colitis is present. CT of brain shows no evidence of acute CVA. Objective Vital Signs Date Time Temp Pulse Resp B/P (MAP) Pulse Ox O2 Delivery O2 Flow Rate FiO2 03/23/17 08:00 104 03/23/17 06:00 103 03/23/17 04:00 98.9 104 20 170/90 (116) 96 03/23/17 04:00 104 03/23/17 02:00 103 03/23/17 00:00 99.4 104 22 159/89 (112) 96 03/23/17 00:00 104 03/22/17 22:00 114 03/22/17 20:00 99.0 110 22 174/87 (116) 96 03/22/17 20:00 110 03/22/17 18:00 104 03/22/17 16:00 99.2 114 22 145/75 (98) 99 03/22/17 16:00 109 03/22/17 14:00 115 03/22/17 12:00 113 03/22/17 12:00 99.8 115 20 159/74 (102) 99 I/O 03/22/17 03/22/17 03/22/17 03/23/17 03/23/17 03/23/17 07:00 15:00 23:00 07:00 15:00 23:00 Intake Total 800 ml 450 ml 1500 ml 800 ml 100 ml Output Total 700 ml 800 ml 1250 ml Balance 100 ml 450 ml 700 ml -450 ml 100 ml Intake Oral 600 ml 1200 ml 800 ml IV Total 200 ml 450 ml 300 ml 100 ml Output Urine Total 700 ml 400 ml 750 ml Stool Total 400 ml 500 ml # Voids 4 1 # Bowel Movements 1 6 Result Diagram: 03/23/17 0751 03/23/17 0751 Objective Remarks GENERAL: NAD, A&Ox0 HEAD: Normocephalic. NECK: Supple, trachea midline. No lymphadenopathy. EYES: No scleral icterus. No injection or drainage. CARDIOVASCULAR: Regular rate, tachycardia, without murmurs, gallops, or rubs. RESPIRATORY: Breath sounds equal bilaterally. No accessory muscle use. GASTROINTESTINAL: Abdomen soft, non-tender, nondistended. MUSCULOSKELETAL: No cyanosis, or edema. SKIN: Warm and dry. NEURO: No focal neurological deficitis. A/P Problem List: (1) Pneumonia ICD Code: J18.9 - Pneumonia, unspecified organism Status: Acute (2) Sepsis ICD Code: A41.9 - Sepsis, unspecified organism (3) Physical deconditioning ICD Code: R53.81 - Other malaise Assessment and Plan 46-year-old female admitted secondary to sepsis with pneumonia. Encephalopathy present admitted. Encephalopathy improving. Has infection improving. Patient stable for transfer out of ICU. Continue cefepime and azithromycin. Continue to monitor blood work, labs ordered. Right middle lobe pneumonia Sepsis Baseline Immunocompromised state Continue cefepime Continue azithromycin Workup expanded to include CT of abdomen and pelvis, to screen for infection Continue oxygen as needed Following in ICU Hypertension Continue baseline treatment Follow blood pressures Adjust treatments as needed pericardial effusion history pericardial tamponade- s/p window Follow clinically RA Osteoporosis immunocompromised No change to baseline treatment History of CVA Acute Expressive aphasia Chronic left-sided weakness May be contributory to encephalopathy Evaluate for acute CVA or brain bleed with head CT Seizure disorder Continue Keppra Diabetes mellitus type 2 Follow blood sugars Insulin sliding scale Diabetic diet DVT prophylaxis Lovenox. Problem Qualifiers (1) Pneumonia: Qualified Codes: J18.1 - Lobar pneumonia, unspecified organism (2) Sepsis: Qualified Codes: A41.9 - Sepsis, unspecified organism Joel Shea MD Mar 23, 2017 10:50
[2017-03-23] MEDS: metroNIDAZOLE 500 MG TAB PO SCH ×2 (11:44→22:33)
--- NOTE | 2017-03-23 11:49 | HHI.IDPN ---
Subjective Subjective Remarks is a 46 y/o CM with PMHx of DM2, HTN, ? reported history of Multiple Sclerosis(s/b neurologist in past), RA on prednisone and leflulonamide, h.o Cdiff, h/o spine infection on keflex ferry terminal agent, Osteoporosis ? secondary to prednisone. She used to walk 6 years back then subsequently became wheel chair bound for trips. The patient is now in crippling pain secondary to RA constant neck pain inability to move neck. She sleeps in her wheel chair and has not slept in bed for years. Patient is mostly wheel chair bound but is able to walk short distances. During that November admission in 2016 patient had bilateral lower extremity cellulitis as well as diagnosed with C. difficile during that admission. Meningoencephalitis workup was negative. Patient follows at baseline with [facility] (Rheum) and (ID). 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 She also has hardware in her cervical spine which unfortunately cannot be removed due to stability issues. After her November admission patient was discharged home and was back to her normal self which is sleeping in her wheelchair and needing assistance to even go to the bathroom. Approximately 2 weeks back patient's mother noticed worsening mental status and patient not eating much. Approximately a day prior to admission patient apparently had fever 101 associated with rigors and hence was brought to the hospital for further evaluation. Patient met criteria for sepsis on admission. Blood cultures done on admission are positive for gram-negative rods and infectious disease is consulted for the same. Antibiotics Zosyn IV Vanco IV clinda IV Lines Line sites with no e.o infection Past Medical History DM HTN MS RA, immunocompromised Questionable CHF Osteoporosis Past Surgical History Cervical fusion 2007 Allergies: Coded Allergies: hydromorphone (Verified Allergy, Unknown, 03/21/17) metformin (Verified Allergy, Unknown, 03/21/17) Objective . Vital Signs Date Time Temp Pulse Resp B/P (MAP) Pulse Ox O2 Delivery O2 Flow Rate FiO2 03/23/17 08:00 104 03/23/17 06:00 103 03/23/17 04:00 98.9 104 20 170/90 (116) 96 03/23/17 04:00 104 03/23/17 02:00 103 03/23/17 00:00 99.4 104 22 159/89 (112) 96 03/23/17 00:00 104 03/22/17 22:00 114 03/22/17 20:00 99.0 110 22 174/87 (116) 96 03/22/17 20:00 110 03/22/17 18:00 104 03/22/17 16:00 99.2 114 22 145/75 (98) 99 03/22/17 16:00 109 03/22/17 14:00 115 03/22/17 12:00 113 03/22/17 12:00 99.8 115 20 159/74 (102) 99 03/23/17 03/23/17 03/24/17 15:00 23:00 07:00 Intake Total 100 ml Balance 100 ml IV Total 100 ml . Laboratory Tests Test 03/22/17 11:35 03/23/17 07:51 White Blood Count 10.0 TH/MM3 7.1 TH/MM3 Red Blood Count 4.97 MIL/MM3 4.75 MIL/MM3 Hemoglobin 13.6 GM/DL 12.8 GM/DL Hematocrit 40.9 % 39.4 % Mean Corpuscular Volume 82.3 FL 82.9 FL Mean Corpuscular Hemoglobin 27.4 PG 27.0 PG Mean Corpuscular Hemoglobin Concent 33.3 % 32.6 % Red Cell Distribution Width 17.1 % 17.2 % Platelet Count 147 TH/MM3 156 TH/MM3 Mean Platelet Volume 8.0 FL 8.3 FL Neutrophils (%) (Auto) 84.4 % 79.5 % Lymphocytes (%) (Auto) 7.4 % 10.0 % Monocytes (%) (Auto) 7.5 % 8.9 % Eosinophils (%) (Auto) 0.2 % 1.1 % Basophils (%) (Auto) 0.5 % 0.5 % Neutrophils # (Auto) 8.4 TH/MM3 5.6 TH/MM3 Lymphocytes # (Auto) 0.7 TH/MM3 0.7 TH/MM3 Monocytes # (Auto) 0.8 TH/MM3 0.6 TH/MM3 Eosinophils # (Auto) 0.0 TH/MM3 0.1 TH/MM3 Basophils # (Auto) 0.0 TH/MM3 0.0 TH/MM3 CBC Comment DIFF FINAL DIFF FINAL Differential Comment Laboratory Tests Test 03/22/17 10:15 03/23/17 07:51 Blood Urea Nitrogen 9 MG/DL 7 MG/DL Creatinine 0.37 MG/DL 0.23 MG/DL Random Glucose 88 MG/DL 67 MG/DL Calcium Level 8.0 MG/DL 8.2 MG/DL Sodium Level 140 MEQ/L 136 MEQ/L Potassium Level 3.1 MEQ/L 3.3 MEQ/L Chloride Level 108 MEQ/L 105 MEQ/L Carbon Dioxide Level 20.5 MEQ/L 19.2 MEQ/L Anion Gap 12 MEQ/L 12 MEQ/L Estimat Glomerular Filtration Rate 187 ML/MIN 324 ML/MIN Total Protein 5.9 GM/DL Albumin 2.5 GM/DL Alkaline Phosphatase 144 U/L Aspartate Amino Transf (AST/SGOT) 32 U/L Alanine Aminotransferase (ALT/SGPT) 35 U/L Total Bilirubin 0.3 MG/DL Microbiology Date/Time Source Procedure Growth Status 03/22/17 19:02 Blood Peripheral Aerobic Blood Culture - Preliminary NO GROWTH IN 1 DAY Resulted 03/22/17 19:02 Blood Peripheral Anaerobic Blood Culture - Preliminary NO GROWTH IN 1 DAY Resulted 03/22/17 18:53 Blood Peripheral Aerobic Blood Culture - Preliminary NO GROWTH IN 1 DAY Resulted 03/22/17 18:53 Blood Peripheral Anaerobic Blood Culture - Preliminary NO GROWTH IN 1 DAY Resulted 03/21/17 10:35 Blood Peripheral Aerobic Blood Culture - Preliminary Gram Negative [place] Resulted 03/21/17 10:35 Blood Peripheral Anaerobic Blood Culture - Preliminary NO GROWTH IN 2 DAYS Resulted 03/21/17 10:30 Blood Peripheral Aerobic Blood Culture - Preliminary NO GROWTH IN 2 DAYS Resulted 03/21/17 10:30 Blood Peripheral Anaerobic Blood Culture - Preliminary NO GROWTH IN 2 DAYS Resulted 03/21/17 10:35 Nasal Aspirate Influenza Types A,B Antigen (YING) - Final NEGATIVE FOR FLU A AND B ANTIGEN.... Complete Imaging Last Impressions Head CT 03/22/17 0000 Signed Impressions: Service Date/Time: February 20:16 - CONCLUSION: No evidence of acute cardiopulmonary disease. Prominent chronic white matter changes for a patient this age. Marcus Devi MD Abdomen/Pelvis CT 03/22/17 0000 Signed Impressions: Service Date/Time: February 20:18 - CONCLUSION: 1. Mild, diffuse colitis in the proper clinical setting. This is nonspecific, presumably infectious or inflammatory. No abscess, perforation or obstruction. 2. Chronic/unchange findings otherwise including multiple nonacute fractures and a tiny nonobstructing stone of the right kidney. Marcus Devi MD Chest X-Ray 03/21/17 1006 Signed Impressions: Service Date/Time: Tuesday, March 21, 2017 10:16 - CONCLUSION: Right midlung and left basilar scarring versus minimal infiltrates. Garret Weber MD Toe X-Ray 03/21/17 0000 Signed Impressions: Service Date/Time: Tuesday, March 21, 2017 15:45 - CONCLUSION: 1. 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 2. Prior compression screw fixation of the first MTP. 3. No acute fracture. Jorden Nina MD Physical Exam GENERAL: Obese, Cushingoid appearing patient. No cardiopulm distress. SKIN: Joints with significant deformities [place] of upper extremities. Upper extremity again difficult to assess but area of chronic scabbing with surrounding erythema. HEAD: Atraumatic. Normocephalic. No temporal or scalp tenderness. EYES: Pupils equal round and reactive. Extraocular motions intact. No scleral icterus. No injection or drainage. ENT: Nose without bleeding, purulent drainage. NECK: Trachea midline. Large neck. No lymphadenopathy. Hardware in neck ? chronic neck stiffness based on prior exams. CARDIOVASCULAR: Regular rate and rhythm without murmurs. RESPIRATORY: Clear to auscultation. Breath sounds equal bilaterally. No wheezes , rales, or rhonchi. GASTROINTESTINAL: Abdomen soft, non-tender, nondistended. MUSCULOSKELETAL: Extremities without clubbing, cyanosis, or edema. Rest as described under skin section. NEUROLOGICAL: Awake and alert, Ox3, NF, followed commands for me. Psych: cooperative IV line sites with no e.o infection. Assessment & Plan Remarks Sepsis present on admission. Gram-negative olayinka bacteremia source unknown at the present time workup in progress Pneumonia CAP vs Possible aspiration pneumonia Rheumatoid arthritis on immunosuppressants, Immunecompromised ? multiple sclerosis. h/o Cdiff Recs: Continue Cefepime IV Continue Vanco IV (pending cultures) Start oral flagyl (may cause encephalopathy please follow pt clinically). Started for possible non cdiff Colitis. Continue oral vanco. follow cultures follow clinically. teresew RN teresew Mother Consult Palliative care as patient has seen them in past. For addressing goals of care. Mom would like pt to be on hospice but daughter is POA. /Chanel covering for me this weekend. Priscilla Corey MD Mar 23, 2017 11:49
--- NOTE | 2017-03-23 12:30 | PD.CONS ---
Consult Service Palliative Care Consult Requested By Dr. Amada Corey. Primary Care Physician Mario Alberto Danielson Jr, DO Reason for Consultation a. To assist with evaluation and management of symptoms including: Pain, debility. b. To assist medical decision maker(s) with: better understanding of current medical conditions; weighing benefits/burdens of medical treatment options; making medical treatment decisions. . HPI History of Present Illness Mrs. Harris is a 46-year-old female with a medical history significant for rheumatoid arthritis, diabetes mellitus, hypertension, seizure activity, OA and history of CVA. Patient presented to ED via EMS on 03/21/17 for evaluation of altered mental status. As per patient's family, patient with progressive intermittent altered mental status for the prior few days. Family was concerned given patient's recent history of encephalitis requiring acute hospitalization in November 2016. He did workup to include chest x-ray revealing left basilar scaring versus minimal infiltrates. Laboratory workup revealing WBC 10.9, Hgb 12.4, platelet count 185. BUN/creatinine 8/0.36. UA negative for nitrates or leukocytes. EKG revealing sinus tachycardia with heart rate in the 110s. Rectal temperature 101.4. Patient was admitted for monitoring and further management of pneumonia, sepsis. Clinical course complicated by worsening altered mental status, tachycardia with heart rate in the 150s and rectal temperature of 102. Patient was given 2 L of fluid bolus and transferred to medical ICU for further management. Infectious disease, Dr. Amada Corey consulted. Patient with previous acute hospitalization from 12/06/16 to 12/19/16 secondary to encephalitis, bilateral lower lobe cellulitis and C. difficile colitis. Palliative care following during prior acute hospitalization. Patient is on long-term oral Keflex suppression for an epidural abscess, as well as hardware in her cervical spine which cannot be removed. Head CT negative for acute process. Abdomen/pelvis CT revealing mild diffuse colitis likely secondary to infectious or inflammation. No abscess, perforation or obstruction noted. Blood culture positive for gram-negative olayinka. Patient was continued on cefepime IV. Patient seen in medical ICU. She was in bed in moderate distress secondary to abdominal pain. Patient alert and oriented x self, place, situation. Intermittently confused, forgetful. Expressive aphasia noted. Pain reported as crampy in nature, located mainly in the epigastric region. Patient unable to elaborate any further. Bedside conversation with pt's mother Jemima and daughter Karolina. Reviewed events leading to this hospitalization, clinical course and current medical management. Likely trajectory of disease reviewed with family. Family understands that patient will likely continue to have repeat infections given general debility, multiple ongoing chronic comorbidities , autoimmune disorders and underlying immunocompromise. I have discussed possibility of further setbacks, decline and repeat infections in the future. Family verbalizes she has been declining with more frequent infections over the past few years. CODE STATUS discussed with family, family reports that this has been previously discussed with patient and she has elected DNR/DNI. Community DNR signed by daughter during prior omission. Family receptive to palliative care follow-ups. Case discussed with bedside RN shirin. . Function/Cognitive Trajectory At baseline, she is mostly wheel chair bound but is able to walk short distances. Progressive decline since acute hospitalization in November 2016. Patient sleeping in her wheelchair and needing more assistance with ADLs. Worsening debility over the past 2 weeks. . Review of Systems ROS Limitations: Clinical Condition, Altered Mental Status Constitutional: COMPLAINS OF: Fever, Pain, Generalized weakness, DENIES: Night Sweats Endocrine: DENIES: Heat/cold intolerance Eyes: DENIES: Eye inflammation, Eye pain Ears, nose, mouth, throat: DENIES: Hearing loss, Throat pain, Hoarseness, Running Nose, Epistaxis Respiratory: COMPLAINS OF: Shortness of breath Cardiovascular: DENIES: Lower Extremity Edema Gastrointestinal: DENIES: Nausea, Vomiting, Difficulty Swallowing Musculoskeletal: COMPLAINS OF: Decreased range of motion Integumentary: DENIES: Rash Hematologic/Lymphatics: COMPLAINS OF: Bruising Immunologic/Allergic: DENIES: Eczema Neurologic: COMPLAINS OF: Localized weakness, Seizures, Poor Balance Psychiatric: COMPLAINS OF: Anxiety, Confusion, Agitation Other ROS: Limited ROS secondary to patient's clinical condition, confusion. Past Family Social History Coded Allergies: hydromorphone (Verified Allergy, Unknown, 03/21/17) metformin (Verified Allergy, Unknown, 03/21/17) Past Medical History RA, immunocompromised History of C. difficile DM HTN pericardial tamponade- s/p window CVA- left sided weakness Seizure disorder Osteoporosis Depression . Past Surgical History Cervical fusion 2007 Pericardial window Lumbar sx Bilateral hands orif Bilateral feet orif Left hip replacement . Reported Medications Oxycodone-Acetaminophen 10-325 mg Tab 1 Tab PO Q6H PRN Acidophilus/l-Sporogenes (Lactobacillus Acidophilus) 35 Million Cell-25 Million Cell Tab 1 Tab PO TID Keppra (Levetiracetam) 500 Mg Tab 500 Mg PO Q12HR Lantus Inj (Insulin Glargine) 1,000 Unit/10 Ml Vial 40 Units SQ HS Leflunomide 20 Mg Tab 20 Mg PO DAILY Metoprolol Tartrate 50 Mg Tab 50 Mg PO BID Citalopram (Citalopram Hydrobromide) 20 Mg Tab 20 Mg PO DAILY Gabapentin 800 Mg Tab 800 Mg PO TID Baclofen 10 Mg Tab 10 Mg PO Q8HR PRN Hydroxyzine HCl 50 Mg Tab 50 Mg PO BID PRN Ditropan (Oxybutynin Chloride) 5 Mg Tab 5 Mg PO Q12HR PRN . Current Medications Medications (Trade) Dose Ordered Sig/Fuentes Route Start Time Stop Time Status Last Admin (NS Flush) 2 ml UNSCH PRN IV FLUSH 03/21/17 13:00 03/23/17 08:13 (NS Flush) 2 ml BID IV FLUSH 03/21/17 21:00 03/23/17 08:13 (Narcan Inj) 0.4 mg UNSCH PRN IV PUSH 03/21/17 13:00 (Lactinex) 1 tab TID PO 03/21/17 18:00 03/23/17 08:13 (Keppra) 500 mg Q12HR PO 03/21/17 21:00 03/23/17 08:13 (Percocet 10-325 Mg) 1 tab Q6H PRN PO 03/21/17 15:30 03/23/17 08:20 (Deltasone) 5 mg BID PO 03/21/17 21:00 03/23/17 08:13 (Pepcid) 20 mg Q12HR PO 03/21/17 21:00 03/23/17 08:13 (VANCOMYCIN for oral use only) 500 mg QID PO 03/21/17 18:30 03/23/17 08:13 (Free Water) VOLUME OF WATER: 200 ML... Q4H PO 03/21/17 18:00 03/23/17 10:00 (Tylenol) 650 mg Q4H PRN PO 03/21/17 19:45 (Trandate Inj) 10 mg Q20M PRN IV PUSH 03/21/17 20:45 03/23/17 11:45 (Zofran Inj) 4 mg Q6HR PRN IV PUSH 03/22/17 10:45 03/22/17 13:00 Cefepime HCl 2000 mg/Sodium Chloride 100 ml @ 200 mls/hr Q8H IV 03/22/17 17:00 03/23/17 08:12 (Ativan Inj) 1 mg ONCE PRN IV PUSH 03/22/17 18:30 03/24/17 18:29 03/22/17 19:30 Potassium Chloride 100 ml @ 50 mls/hr Q2H IV 03/23/17 09:30 03/23/17 13:29 03/23/17 11:52 (Flagyl) 500 mg Q8H PO 03/23/17 12:00 03/23/17 11:44 Family History Mom, living with history of Breast cancer Dad, living with history of Prostate cancer and RA Younger brother- hyperlipidemia . Substance Use Tobacco: None reported. Alcohol: None reported. Prescription med abuse: None reported. Illicits: None reported. . Psychosocial History Patient was born and raised in [place], lived in [place] for some time, she now lives in [place] with her fisamir and her daughter Karolina, age 22. Patient is . 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 Highest level of education is high school. . Spiritual/Cultural Factors Tenriism heidi, welcomes industrial services worker support. . Living Will: Never completed Health Care Surrogate: Never completed Durable Power of Dispenser Operator: Never completed Health Care Surrogate(s): No advance directives completed. As per [place] statute, healthcare proxy decision maker falls to patient's daughter Karolina Harris. . Family/friends goals: No code. DNR/DNI. Continue aggressive management short of no code. . Ethical and Legal Issues No ethical legal issues identified. . Physical Exam Vital Signs Date Time Temp Pulse Resp B/P (MAP) Pulse Ox O2 Delivery O2 Flow Rate FiO2 03/23/17 08:00 98.3 104 21 169/80 (109) 100 03/23/17 08:00 104 03/23/17 06:00 103 03/23/17 04:00 98.9 104 20 170/90 (116) 96 03/23/17 04:00 104 03/23/17 02:00 103 03/23/17 00:00 99.4 104 22 159/89 (112) 96 03/23/17 00:00 104 03/22/17 22:00 114 03/22/17 20:00 99.0 110 22 174/87 (116) 96 03/22/17 20:00 110 03/22/17 18:00 104 03/22/17 16:00 99.2 114 22 145/75 (98) 99 03/22/17 16:00 109 03/22/17 14:00 115 03/23/17 03/24/17 19:00 07:00 Intake Total 100 ml Balance 100 ml IV Total 100 ml Exam CONSTITUTIONAL/GENERAL: This is an adequately nourished patient, in moderate distress secondary to abdominal pain. Facial grimacing noted. TUBES/LINES/DRAINS: PIV's. SKIN: No jaundice, rashes, or lesions. Ecchymoses on upper and bilateral lower extremities. Skin temperature appropriate. Not diaphoretic. HEAD: Atraumatic. Normocephalic. EYES: Pupils equal and round and reactive. Extraocular motions intact. No scleral icterus. No injection or drainage. ENT: Hearing grossly normal. Nose without bleeding or purulent drainage. Moist oral mucosa. NECK: Trachea midline. Supple, nontender. Cushingoid appearing. CARDIOVASCULAR: Regular rate and rhythm without murmurs, gallops, or rubs. RESPIRATORY/CHEST: Symmetric, unlabored respirations. Clear to auscultation. Breath sounds equal bilaterally. No wheezes, rales, or rhonchi. GASTROINTESTINAL: Abdomen soft, non-tender, nondistended. No hepato-splenomegaly , or palpable masses. No guarding. Bowel sounds present. GENITOURINARY: Without palpable bladder distension. Ocampo catheter in place. MUSCULOSKELETAL: Extremities without clubbing, cyanosis, or edema. RA related deformities to bilateral upper and lower extremities. NEUROLOGICAL: Awake and alert x self, place and situation. Intermittently confused, forgetful. Follows commands. Moves all extremities. PSYCHIATRIC: Intermittent anxiety. . Diagnostic Tests Laboratory Laboratory Tests Test 03/21/17 10:35 03/21/17 18:49 03/22/17 10:15 03/22/17 11:35 White Blood Count 10.9 TH/MM3 (4.0-11.0) 10.0 TH/MM3 (4.0-11.0) Red Blood Count 4.62 MIL/MM3 (4.00-5.30) 4.97 MIL/MM3 (4.00-5.30) Hemoglobin 12.4 GM/DL (11.6-15.3) 13.6 GM/DL (11.6-15.3) Hematocrit 38.3 % (35.0-46.0) 40.9 % (35.0-46.0) Mean Corpuscular Volume 82.9 FL (80.0-100.0) 82.3 FL (80.0-100.0) Mean Corpuscular Hemoglobin 27.0 PG (27.0-34.0) 27.4 PG (27.0-34.0) Mean Corpuscular Hemoglobin Concent 32.5 % (32.0-36.0) 33.3 % (32.0-36.0) Red Cell Distribution Width 17.1 % (11.6-17.2) 17.1 % (11.6-17.2) Platelet Count 185 TH/MM3 (150-450) 147 TH/MM3 (150-450) Mean Platelet Volume 8.2 FL (7.0-11.0) 8.0 FL (7.0-11.0) Neutrophils (%) (Auto) 90.0 % (16.0-70.0) 84.4 % (16.0-70.0) Lymphocytes (%) (Auto) 3.6 % (9.0-44.0) 7.4 % (9.0-44.0) Monocytes (%) (Auto) 5.5 % (0.0-8.0) 7.5 % (0.0-8.0) Eosinophils (%) (Auto) 0.2 % (0.0-4.0) 0.2 % (0.0-4.0) Basophils (%) (Auto) 0.7 % (0.0-2.0) 0.5 % (0.0-2.0) Neutrophils # (Auto) 9.8 TH/MM3 (1.8-7.7) 8.4 TH/MM3 (1.8-7.7) Lymphocytes # (Auto) 0.4 TH/MM3 (1.0-4.8) 0.7 TH/MM3 (1.0-4.8) Monocytes # (Auto) 0.6 TH/MM3 (0-0.9) 0.8 TH/MM3 (0-0.9) Eosinophils # (Auto) 0.0 TH/MM3 (0-0.4) 0.0 TH/MM3 (0-0.4) Basophils # (Auto) 0.1 TH/MM3 (0-0.2) 0.0 TH/MM3 (0-0.2) CBC Comment DIFF FINAL DIFF FINAL Differential Comment Prothrombin Time 10.4 SEC (9.8-11.6) Prothromb Time International Ratio 1.0 RATIO Activated Partial Thromboplast Time 22.9 SEC (24.3-30.1) Urine Color YELLOW (YELLW/STRAW) Urine Turbidity CLEAR (CLEAR) Urine pH 7.5 (5.0-8.5) Urine Specific Webster 1.016 (1.002-1.035) Urine Protein 100 mg/dL (NEG-TRACE) Urine Glucose (UA) NEG mg/dL (NEG) Urine Ketones NEG mg/dL (NEG) Urine Occult Blood NEG (NEG) Urine Nitrite NEG (NEG) Urine Bilirubin NEG (NEG) Urine Urobilinogen 2.0 MG/DL (LESS THAN Urine Leukocyte Esterase NEG (NEG) Urine RBC 1 /hpf (0-3) Urine WBC 1 /hpf (0-5) Urine Mucus FEW /lpf (OCC) Microscopic Urinalysis Comment CATH-CULT NOT IND Blood Urea Nitrogen 8 MG/DL (7-18) 9 MG/DL (7-18) Creatinine 0.36 MG/DL (0.50-1.00) 0.37 MG/DL (0.50-1.00) Random Glucose 94 MG/DL (74-106) 88 MG/DL (74-106) Total Protein 5.4 GM/DL (6.4-8.2) Albumin 2.5 GM/DL (3.4-5.0) Calcium Level 8.3 MG/DL (8.5-10.1) 8.0 MG/DL (8.5-10.1) Alkaline Phosphatase 115 U/L (45-117) Aspartate Amino Transf (AST/SGOT) 24 U/L (15-37) Alanine Aminotransferase (ALT/SGPT) 12 U/L (10-53) Total Bilirubin 0.2 MG/DL (0.2-1.0) Sodium Level 138 MEQ/L (136-145) 140 MEQ/L (136-145) Potassium Level 4.1 MEQ/L (3.5-5.1) 3.1 MEQ/L (3.5-5.1) Chloride Level 103 MEQ/L (98-107) 108 MEQ/L (98-107) Carbon Dioxide Level 26.4 MEQ/L (21.0-32.0) 20.5 MEQ/L (21.0-32.0) Anion Gap 9 MEQ/L (5-15) 12 MEQ/L (5-15) Estimat Glomerular Filtration Rate 193 ML/MIN (>89) 187 ML/MIN (>89) Lactic Acid Level 1.2 mmol/L (0.4-2.0) Total Creatine Kinase 81 U/L (26-192) Troponin I LESS THAN 0.02 NG/ML Stool C. difficile Toxin (PCR) NEGATIVE (NEGATIVE) Stl C. difficile Toxin Epiderm 027 PRESUMPTIVE NEGATIVE Test 03/23/17 07:51 White Blood Count 7.1 TH/MM3 (4.0-11.0) Red Blood Count 4.75 MIL/MM3 (4.00-5.30) Hemoglobin 12.8 GM/DL (11.6-15.3) Hematocrit 39.4 % (35.0-46.0) Mean Corpuscular Volume 82.9 FL (80.0-100.0) Mean Corpuscular Hemoglobin 27.0 PG (27.0-34.0) Mean Corpuscular Hemoglobin Concent 32.6 % (32.0-36.0) Red Cell Distribution Width 17.2 % (11.6-17.2) Platelet Count 156 TH/MM3 (150-450) Mean Platelet Volume 8.3 FL (7.0-11.0) Neutrophils (%) (Auto) 79.5 % (16.0-70.0) Lymphocytes (%) (Auto) 10.0 % (9.0-44.0) Monocytes (%) (Auto) 8.9 % (0.0-8.0) Eosinophils (%) (Auto) 1.1 % (0.0-4.0) Basophils (%) (Auto) 0.5 % (0.0-2.0) Neutrophils # (Auto) 5.6 TH/MM3 (1.8-7.7) Lymphocytes # (Auto) 0.7 TH/MM3 (1.0-4.8) Monocytes # (Auto) 0.6 TH/MM3 (0-0.9) Eosinophils # (Auto) 0.1 TH/MM3 (0-0.4) Basophils # (Auto) 0.0 TH/MM3 (0-0.2) CBC Comment DIFF FINAL Differential Comment Blood Urea Nitrogen 7 MG/DL (7-18) Creatinine 0.23 MG/DL (0.50-1.00) Random Glucose 67 MG/DL (74-106) Total Protein 5.9 GM/DL (6.4-8.2) Albumin 2.5 GM/DL (3.4-5.0) Calcium Level 8.2 MG/DL (8.5-10.1) Alkaline Phosphatase 144 U/L (45-117) Aspartate Amino Transf (AST/SGOT) 32 U/L (15-37) Alanine Aminotransferase (ALT/SGPT) 35 U/L (10-53) Total Bilirubin 0.3 MG/DL (0.2-1.0) Sodium Level 136 MEQ/L (136-145) Potassium Level 3.3 MEQ/L (3.5-5.1) Chloride Level 105 MEQ/L (98-107) Carbon Dioxide Level 19.2 MEQ/L (21.0-32.0) Anion Gap 12 MEQ/L (5-15) Estimat Glomerular Filtration Rate 324 ML/MIN (>89) Result Diagram: 03/23/17 0751 03/23/17 0751 Microbiology Microbiology Date/Time Source Procedure Growth Status 03/22/17 19:02 Blood Peripheral Aerobic Blood Culture - Preliminary NO GROWTH IN 1 DAY Resulted 03/22/17 19:02 Blood Peripheral Anaerobic Blood Culture - Preliminary NO GROWTH IN 1 DAY Resulted 03/22/17 18:53 Blood Peripheral Aerobic Blood Culture - Preliminary NO GROWTH IN 1 DAY Resulted 03/22/17 18:53 Blood Peripheral Anaerobic Blood Culture - Preliminary NO GROWTH IN 1 DAY Resulted 03/21/17 10:35 Blood Peripheral Aerobic Blood Culture - Preliminary Gram Negative Olayinka Resulted 03/21/17 10:35 Blood Peripheral Anaerobic Blood Culture - Preliminary NO GROWTH IN 2 DAYS Resulted 03/21/17 10:30 Blood Peripheral Aerobic Blood Culture - Preliminary NO GROWTH IN 2 DAYS Resulted 03/21/17 10:30 Blood Peripheral Anaerobic Blood Culture - Preliminary NO GROWTH IN 2 DAYS Resulted 03/21/17 10:35 Nasal Aspirate Influenza Types A,B Antigen (YING) - Final NEGATIVE FOR FLU A AND B ANTIGEN.... Complete Imaging Last Impressions Head CT 03/22/17 0000 Signed Impressions: Service Date/Time: February 20:16 - CONCLUSION: No evidence of acute cardiopulmonary disease. Prominent chronic white matter changes for a patient this age. Marcus Devi MD Abdomen/Pelvis CT 03/22/17 0000 Signed Impressions: Service Date/Time: February 20:18 - CONCLUSION: 1. Mild, diffuse colitis in the proper clinical setting. This is nonspecific, presumably infectious or inflammatory. No abscess, perforation or obstruction. 2. Chronic/unchange findings otherwise including multiple nonacute fractures and a tiny nonobstructing stone of the right kidney. Marcus Devi MD Chest X-Ray 03/21/17 1006 Signed Impressions: Service Date/Time: Tuesday, March 21, 2017 10:16 - CONCLUSION: Right midlung and left basilar scarring versus minimal infiltrates. Garret Weber MD Toe X-Ray 03/21/17 0000 Signed Impressions: Service Date/Time: Tuesday, March 21, 2017 15:45 - CONCLUSION: 1. 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 2. Prior compression screw fixation of the first MTP. 3. No acute fracture. Jorden Nina MD Patient/Family Conference Present at Family Conference: Daughter Karolina and mother Jemima. . Family Conference Time (mins): 34 Family Conference Location: Bedside Issues Discussed: * Palliative care role, purpose, approach * Additional medical, psychosocial, and spiritual history * Patients general health, functional status, and cognitive changes in the months leading up to the current hospitalization * Patient/family understanding of the current medical problems * Patient/family understanding of prognosis * Patients goals of care as best understood from advance directives and/or conversations and/or values * Current medical treatment options and benefits/burdens of those options * Questions answered to the best of my ability * Palliative care contact information provided * Risks, benefits and limitations of CPR, intubation and mechanical ventilation . Assessment and Plan Disease Oriented Problem List: (1) Pneumonia (2) Sepsis (3) Rheumatoid arthritis (4) Altered mental status (5) Physical deconditioning Symptom Scale: (1) Debility 0-10 Scale: Unable to quantify (2) Pain 0-10 Scale: Unable to quantify Pertinent Non-Medical Issues Psychosocial: Patient was born and raised in [place], lived in [place] for some time, she now lives in [place] with her fisamir and her daughter Karolina, age 22. Patient is . 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 Highest level of education is high school. Spiritual: Tenriism heidi, welcomes industrial services worker support. Legal: No advance directives completed. Ethical issues impacting care: No ethical issues identified. . Important Contacts Karolina, daughter: [phone] Jemima, mother: [phone] [place] mini: [phone] . Prognosis Mrs. Harris is a 46-year-old female with a medical history significant for rheumatoid arthritis, diabetes mellitus, hypertension, seizure activity, OA and history of CVA. Patient currently admitted secondary to sepsis, pneumonia. Recent acute hospitalization in November 2016 secondary to encephalitis, bilateral lower lobe cellulitis and C. difficile colitis. Patient with progressive decline, worsen since November 2016. Patient at high risk for further complications, are aggressive decline and given general debility, multiple ongoing chronic comorbidities, autoimmune disorders and underlying immunocompromise state. . Code Status: No Code Plan * CODE STATUS: DNR/DNI. Patient's daughter Karolina acting as healthcare proxy decision maker has elected DNR/DNI given patient's known wishes. Community DNR signed 12/07/16 in EMR. * HEALTHCARE DECISION-MAKING: Patient with limited participation in goals of care conversation given intermittent confusion, agitation. No advance directives completed. As per [place] statute, healthcare proxy decision-making falls to patient's only daughter Karolina Harris. Daughter is supported by patient's mother Jemima and gabriel Tim. * GOALS OF CARE: Family electing to continue aggressive management short of no code. Likely trajectory of disease reviewed with family. Family understands that patient will likely continue to have repeated infections given general debility, multiple ongoing chronic comorbidities, autoimmune disorders and underlying immunocompromise. I have discussed possibility of further setbacks, decline and recurrent hospitalizations in the future. Family receptive to palliative care f/u, ongoing goals of care conversation. * SYMPTOMS: = Pain, acute on chronic. Secondary to RA, chronic debility, bed/ chair bedbound status, colitis. Pain regimen to include Percocet 10/325 q6hr PRN. Patient has received 2 doses today. Home regimen of Neurontin 800 mg 3 times a day and baclofen as needed has been reinstated today. = Debility: Progressive. Worsen since acute hospitalization in November 2016. PT recommended once patient is clinically stable. Family inquiring regarding short -term rehabilitation vs PT at home with home health. * Palliative care contact information has been provided to patient and family. * Palliative care will continue to follow-up for further clarifications of goals of care as patient's clinical course continues to evolve. . Time Spent Total Floor Time (mins): 65 (Total time to include review and summarization of available medical records to include prior acute hospitalization, physical exam , goals of care conversation with patient and family, case discussion with bedside RN.) >50% Counseling/Coord of Care: Yes Thank you for the opportunity to participate in the care of Ms. Harris. Attestation To help prompt me to consider important information that might be impacting today's encounter and assessment, information from prior notes written by myself or my colleagues may have been "brought forward" into today's note. My signature on this note, however, is an attestation that I personally performed the exam, history, and/or decision-making noted today, and, unless otherwise indicated, the interactions with patient, family, and staff as well as the review of records all occurred today. I also attest that the listed assessment and stated plan reflect my best clinical judgment today based on the combination of historical information, prior notes, and today's exam/ interactions. When time spent is documented, it refers only to time spent today by the signer, or if indicated, combined time spent today by collaborating physician/nurse practitioner. Teri Carlin Mar 23, 2017 12:30
[2017-03-23] MEDS ORDERED: BACLOFEN 10 MG TAB PO PRN (13:30)
[2017-03-23] MEDS ORDERED: cloNIDine HCL 0.1 MG TAB PO PRN (13:45)
[2017-03-23] MEDS ORDERED: METOPROLOL TARTRATE 50 MG TAB PO ONE (13:45)
[2017-03-23] MEDS ORDERED: ENALAPRILAT 1.25 MG/ML VIAL IV PUSH PRN (13:45)
[2017-03-23] MEDS: GABAPENTIN 400 MG CAP PO SCH (18:18)
[2017-03-24] VITALS (10 sets, daily range): BP systolic 160–186; BP diastolic 84–117; PULSE 104–145; RESP 17–18; TEMP 98–100.2; O2SAT 93–98
[2017-03-24] MEDS: FREE WATER PO SCH ×6 (02:00→21:22)
[2017-03-24] MEDS: CEFEPIME INJ 2,000 MG in SODIUM CHLORIDE 0.9% INJ 100 ML IV SCH ×3 (02:03→19:01)
[2017-03-24] MEDS: metroNIDAZOLE 500 MG TAB PO SCH ×3 (06:10→20:00)
[2017-03-24] MEDS: oxyCODONE/ACETAMINOPHEN 10 MG/325 MG TAB PO PRN (08:44)
[2017-03-24] MEDS: predniSONE 5 MG TAB PO SCH ×2 (08:44→21:00)
[2017-03-24] MEDS: levETIRAcetam 500 MG TAB PO SCH ×2 (08:44→21:00)
[2017-03-24] MEDS: LACTOBACILLUS ACIDOPHILUS TAB PO SCH ×4 (08:44→18:00)
[2017-03-24] MEDS: METOPROLOL TARTRATE 50 MG TAB PO SCH ×2 (08:44→21:00)
[2017-03-24] MEDS: FAMOTIDINE 20 MG TAB PO SCH ×2 (08:44→21:00)
[2017-03-24] MEDS: CITALOPRAM HYDROBROMIDE 20 MG TAB PO SCH (08:44)
[2017-03-24] MEDS: GABAPENTIN 400 MG CAP PO SCH ×4 (08:45→18:00)
[2017-03-24] MEDS: SODIUM CHLORIDE 0.9% FLUSH 10 ML FLUSH IV FLUSH SCH ×2 (08:59→21:16)
[2017-03-24] MEDS: VANCOMYCIN 500 MG VIAL (FOR ORAL USE ONLY) PO SCH ×4 (09:00→21:00)
--- NOTE | 2017-03-24 12:06 | HHI.PR ---
Subjective Remarks History from patient, her fianc at the bedside, ER physician communication, and review of medical records. Patient is awake, alert, oriented at the time of my exam. She is actually able to give better history than her fianc at the bedside. She is known to me from her prior hospitalization date on December 06, 2016. At that time, she presented with acute encephalopathy and family at that time gave her a history saying that patient always gets encephalopathic as this evening for a simple UTI. They have also given me history with her recurrent C. difficile at that time for which stool studies were sent and found to be positive for C. difficile. She was evaluated by infectious disease specialist while in hospital. Because her encephalopathy was so severe at that time, there was also thought of encephalitis/meningitis. However all workup was negative. CSF WBC was 15. Her C. difficile was positive. She was hospitalized at that time from December 06, 2016 to December 19, 2016 This time, the family stated that because they know she gets confused very easily with infections, they decided to bring her here early. They realize that she was getting somewhat confused at home. Patient at the time of exam by the ER physician and myself, patient was entirely awake, alert, oriented. She reports that she did have fevers at home which was 12. She denies any cough. However she reports some rattling in her chest. She reports of frequent urination and feeling off a lot of pressure in her bladder area. And when she goes to the bathroom usually, she would have difficulty going because of the pressure. She herself denies any diarrhea at the time of my interview. She reports that she finished her treatment for C. difficile with medications around January. Patient denies any sores or ulcers. No reports are invasive lines. 1-25Persisting problem of encephalopathy through today. Patient has no specific complaints of pain, says she isn't pain everywhere. Symptoms of expressive aphasia, patient has had stroke in the past. Family expresses that whenever she gets infections she is often like this but she's had a stroke in the past with infection also. Patient can express no specific complaints. 1-26 She does not yet to baseline. Improvement in encephalopathy is seen today. CT imaging shows no evidence of abscess. Colitis is present. CT of brain shows no evidence of acute CVA. 1-27 patient is not taking in anything orally. Not wanting to take her pills. Discussed with mother at bedside who is not the power of energy attorney she states it' s the patient's daughter. Patient is a DO NOT RESUSCITATE hospice might be a consideration versus placing a feeding tube and aggressive treatment Continue on IV fluids have discussed with patient and family and RNs and case management Consult hospice for information Objective Vitals Vital Signs Date Time Temp Pulse Resp B/P (MAP) Pulse Ox O2 Delivery O2 Flow Rate FiO2 03/24/17 08:00 98.0 114 18 160/108 (125) 97 03/24/17 04:00 98.7 109 17 175/96 (122) 98 03/24/17 00:32 98.9 104 18 173/84 (113) 96 03/23/17 22:00 Room Air 03/23/17 20:00 98.6 98 17 185/92 (123) 98 03/23/17 16:08 97.6 82 17 182/92 (122) 98 03/23/17 16:00 82 03/23/17 12:00 92 03/23/17 12:00 92 30 178/86 (116) 97 I/O 03/23/17 03/23/17 03/23/17 03/24/17 03/24/17 03/24/17 07:00 15:00 23:00 07:00 15:00 23:00 Intake Total 800 ml 700 ml 0 ml Output Total 1250 ml 350 ml Balance -450 ml 350 ml 0 ml Intake Oral 800 ml 400 ml 0 ml IV Total 300 ml Output Urine Total 750 ml 350 ml Stool Total 500 ml # Voids 4 # Bowel Movements 3 0 Result Diagram: 03/23/17 0751 03/23/17 0751 Other Results Laboratory Tests Test 03/21/17 18:49 03/22/17 10:15 03/22/17 11:35 03/23/17 07:51 Stool C. difficile Toxin (PCR) NEGATIVE Stl C. difficile Toxin Epiderm 027 PRESUMPTIVE NEGATIVE Blood Urea Nitrogen 9 MG/DL 7 MG/DL Creatinine 0.37 MG/DL 0.23 MG/DL Random Glucose 88 MG/DL 67 MG/DL Calcium Level 8.0 MG/DL 8.2 MG/DL Sodium Level 140 MEQ/L 136 MEQ/L Potassium Level 3.1 MEQ/L 3.3 MEQ/L Chloride Level 108 MEQ/L 105 MEQ/L Carbon Dioxide Level 20.5 MEQ/L 19.2 MEQ/L Anion Gap 12 MEQ/L 12 MEQ/L Estimat Glomerular Filtration Rate 187 ML/MIN 324 ML/MIN White Blood Count 10.0 TH/MM3 7.1 TH/MM3 Red Blood Count 4.97 MIL/MM3 4.75 MIL/MM3 Hemoglobin 13.6 GM/DL 12.8 GM/DL Hematocrit 40.9 % 39.4 % Mean Corpuscular Volume 82.3 FL 82.9 FL Mean Corpuscular Hemoglobin 27.4 PG 27.0 PG Mean Corpuscular Hemoglobin Concent 33.3 % 32.6 % Red Cell Distribution Width 17.1 % 17.2 % Platelet Count 147 TH/MM3 156 TH/MM3 Mean Platelet Volume 8.0 FL 8.3 FL Neutrophils (%) (Auto) 84.4 % 79.5 % Lymphocytes (%) (Auto) 7.4 % 10.0 % Monocytes (%) (Auto) 7.5 % 8.9 % Eosinophils (%) (Auto) 0.2 % 1.1 % Basophils (%) (Auto) 0.5 % 0.5 % Neutrophils # (Auto) 8.4 TH/MM3 5.6 TH/MM3 Lymphocytes # (Auto) 0.7 TH/MM3 0.7 TH/MM3 Monocytes # (Auto) 0.8 TH/MM3 0.6 TH/MM3 Eosinophils # (Auto) 0.0 TH/MM3 0.1 TH/MM3 Basophils # (Auto) 0.0 TH/MM3 0.0 TH/MM3 CBC Comment DIFF FINAL DIFF FINAL Differential Comment Total Protein 5.9 GM/DL Albumin 2.5 GM/DL Alkaline Phosphatase 144 U/L Aspartate Amino Transf (AST/SGOT) 32 U/L Alanine Aminotransferase (ALT/SGPT) 35 U/L Total Bilirubin 0.3 MG/DL Imaging Last Impressions Head CT 03/22/17 0000 Signed Impressions: Service Date/Time: February 20:16 - CONCLUSION: No evidence of acute cardiopulmonary disease. Prominent chronic white matter changes for a patient this age. Marcus Devi MD Abdomen/Pelvis CT 03/22/17 0000 Signed Impressions: Service Date/Time: February 20:18 - CONCLUSION: 1. Mild, diffuse colitis in the proper clinical setting. This is nonspecific, presumably infectious or inflammatory. No abscess, perforation or obstruction. 2. Chronic/unchange findings otherwise including multiple nonacute fractures and a tiny nonobstructing stone of the right kidney. Marcus Devi MD Chest X-Ray 03/21/17 1006 Signed Impressions: Service Date/Time: Tuesday, March 21, 2017 10:16 - CONCLUSION: Right midlung and left basilar scarring versus minimal infiltrates. Garret Weber MD Toe X-Ray 03/21/17 0000 Signed Impressions: Service Date/Time: Tuesday, March 21, 2017 15:45 - CONCLUSION: 1. 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 2. Prior compression screw fixation of the first MTP. 3. No acute fracture. Jorden Nina MD Objective Remarks GENERAL: Awake and alert but not oriented not answering any questions this time- - not taking any by mouth intake IN --not at baseline per mother SKIN: Warm and dry. HEAD: Atraumatic. Normocephalic. EYES: Pupils equal and round. No scleral icterus. No injection or drainage. ENT: No nasal bleeding or discharge. Mucous membranes pink and moist. Oral mucosa is slightly moist --tongue is midline NECK: Trachea midline. No JVD. Supple CARDIOVASCULAR: Regular rate and rhythm. S1 and S2 no S3 or S4 RESPIRATORY: No accessory muscle use. Clear to auscultation. Breath sounds equal bilaterally. coarse breath sounds GASTROINTESTINAL: Abdomen soft, non-tender, nondistended. Hepatic and splenic margins not palpable. MUSCULOSKELETAL: Extremities without clubbing, cyanosis, or edema. No obvious deformities. NEUROLOGICAL: Awake and alert. No obvious cranial nerve deficits. Motor grossly within normal limits. 4 out of 5 muscle strength in the arms and legs. ABNormal speech. PSYCHIATRIC: INAppropriate mood and affect; insight and judgment ABnormal. Procedures NONE Medications and IVs Current Medications Acetaminophen (Tylenol) 650 mg ONCE ONCE PO Last administered on 03/21/17at 10: 22; Start 03/21/17 at 10:15; Stop 03/21/17 at 10:16; Status DC Sodium Chloride 1,000 ml @ 1,000 mls/hr Q1H ONCE IV Last administered on at 10:48; Start 03/21/17 at 10:06; Stop 03/21/17 at 11:05; Status DC Sodium Chloride 800 ml @ 1,000 mls/hr Q48M ONCE IV Last administered on at 11:15; Start 03/21/17 at 10:06; Stop 03/21/17 at 10:53; Status DC Cefepime HCl 2000 mg/Sodium Chloride 100 ml @ 200 mls/hr ONCE ONCE IV Last administered on 03/21/17at 11:15; Start 03/21/17 at 11:00; Stop 03/21/17 at 11:29 ; Status DC Azithromycin 500 mg/Sodium Chloride 250 ml @ 250 mls/hr ONCE ONCE IV Last administered on 03/21/17at 11:51; Start 03/21/17 at 11:00; Stop 03/21/17 at 11:59 ; Status DC Sodium Chloride (NS Flush) 2 ml UNSCH PRN IV FLUSH FLUSH AFTER USING IV ACCESS Last administered on 03/23/17at 08:13; Start 03/21/17 at 13:00 Sodium Chloride (NS Flush) 2 ml BID IV FLUSH Last administered on 03/24/17at 08: 59; Start 03/21/17 at 21:00 Naloxone HCl (Narcan Inj) 0.4 mg UNSCH PRN IV PUSH SEE LABEL COMMENTS; Start at 13:00 Lactobacillus Acidophilus (Lactinex) 1 tab TID PO Last administered on at 18:19; Start 03/21/17 at 18:00 Levetriacetam (Keppra) 500 mg Q12HR PO Last administered on 03/24/17at 08:44; Start 03/21/17 at 21:00 Oxycodone/ Acetaminophen (Percocet 10-325 Mg) 1 tab Q6H PRN PO PAIN 1-10 Last administered on 03/24/17at 08:44; Start 03/21/17 at 15:30 Cefepime HCl 1000 mg/Sodium Chloride 100 ml @ 200 mls/hr Q12H IV Last administered on 03/22/17at 10:50; Start 03/21/17 at 23:00; Stop 03/22/17 at 15:53 ; Status DC Azithromycin 500 mg/Sodium Chloride 250 ml @ 250 mls/hr Q24H IV Last administered on 03/22/17 09:26; Start 03/22/17 at 09:00; Stop 03/22/17 at 15:53 ; Status DC Prednisone (Deltasone) 5 mg BID PO Last administered on 03/24/17at 08:44; Start 03/21/17 at 21:00 Famotidine (Pepcid) 20 mg Q12HR PO Last administered on 03/24/17at 08:44; Start 03/21/17 at 21:00 Water (Free Water) 200 ml Q4HR PO ; Start 03/21/17 at 16:00; Stop 03/21/17 at 18 :41; Status DC Metronidazole 100 ml @ 100 mls/hr Q6HR IV ; Start 03/21/17 at 18:30; Status Cancel Sodium Chloride 1,000 ml @ 999 mls/hr BOLUS ONCE IV Last administered on 03/21at 18:51; Start 03/21/17 at 18:30; Stop 03/21/17 at 19:30; Status DC Sodium Chloride 1,000 ml @ 999 mls/hr BOLUS ONCE IV Last administered on 03/21at 18:51; Start 03/21/17 at 18:30; Stop 03/21/17 at 19:30; Status DC Lorazepam (Ativan Inj) 1 mg ONCE ONCE IV PUSH Last administered on 03/21/17at 18:52; Start 03/21/17 at 18:30; Stop 03/21/17 at 18:39; Status DC Vancomycin HCl (VANCOMYCIN for oral use only) 500 mg QID PO Last administered on 03/23/17at 22:34; Start 03/21/17 at 18:30 Metronidazole 100 ml @ 100 mls/hr Q6H IV Last administered on 03/22/17at 13:00 ; Start 03/21/17 at 20:00; Stop 03/22/17 at 15:53; Status DC Water (Free Water) VOLUME OF WATER: 200 ML... Q4H PO Last administered on at 06:10; Start 03/21/17 at 18:00 Acetaminophen (Tylenol) 650 mg Q4H PRN PO fever >101; Start 03/21/17 at 19:45 Labetalol HCl (Trandate Inj) 10 mg Q20M PRN IV PUSH bp>160/90, HR >110 Last administered on 03/23/17at 11:45; Start 03/21/17 at 20:45; Stop 03/23/17 at 15:04 ; Status DC Ondansetron HCl (Zofran Inj) 4 mg Q6HR PRN IV PUSH Nausea Last administered on 03/22/17at 13:00; Start 03/22/17 at 10:45 Cefepime HCl 2000 mg/Sodium Chloride 100 ml @ 200 mls/hr Q8H IV Last administered on 03/24/17at 08:44; Start 03/22/17 at 17:00 Diatrizoate Meglum/ Diatrizoate Sod ( Gastromary Liq) 18 ml ONCE ONCE PO Last administered on 03/22/17at 16:22; Start 03/22/17 at 16:30; Stop 03/22/17 at 16:31; Status DC Lorazepam (Ativan Inj) 1 mg ONCE PRN IV PUSH [address] Last administered on 03/22/17at 19:30; Start 03/22/17 at 18:30; Stop 03/24/17 at 18:29 Potassium Chloride 100 ml @ 50 mls/hr Q2H IV Last administered on 03/22/17at 22 :31; Start 03/22/17 at 19:15; Stop 03/22/17 at 23:14; Status DC Iohexol (Omnipaque 350 Inj) 100 ml STK-MED ONCE IVCONTRAST Last administered on 03/22/17at 20:26; Start 03/22/17 at 20:26; Stop 03/22/17 at 20:27; Status DC Potassium Chloride 100 ml @ 50 mls/hr Q2H IV Last administered on 03/23/17at 11 :52; Start 03/23/17 at 09:30; Stop 03/23/17 at 13:29; Status DC Metronidazole (Flagyl) 500 mg Q8H PO Last administered on 03/24/17at 06:10; Start 03/23/17 at 12:00 Baclofen (Lioresal) 10 mg Q8HR PRN PO MUSCLE SPASMS Last administered on at 02:03; Start 03/23/17 at 13:30 Citalopram Hydrobromide (CeleXA) 20 mg DAILY PO Last administered on 03/24/17at 08:44; Start 03/24/17 at 09:00 Gabapentin (Neurontin) 800 mg TID PO Last administered on 03/23/17at 18:18; Start 03/23/17 at 18:00 Metoprolol Tartrate (Lopressor) 50 mg ONCE ONCE PO Last administered on at 14:24; Start 03/23/17 at 13:45; Stop 03/23/17 at 13:46; Status DC Metoprolol Tartrate (Lopressor) 50 mg Q12HR PO Last administered on 03/24/17at 08:44; Start 03/24/17 at 09:00 Enalaprilat (Vasotec Inj) 1.25 mg Q6H PRN IV PUSH SBP>160, DBP>90; Start at 13:45 Clonidine (Catapres) 0.1 mg Q6H PRN PO SBP>160, DBP>90; Start 03/23/17 at 13:45 A/P Assessment and Plan Assessment and Plan 46-year-old female admitted secondary to sepsis with pneumonia. Encephalopathy present admitted. Encephalopathy improving. Has infection improving. Patient stable for transfer out of ICU. Continue cefepime and azithromycin. Continue to monitor blood work, labs ordered. Right middle lobe pneumonia Sepsis Baseline Immunocompromised state Continue cefepime Continue ORAL FLAGYL ORAL VANCO Workup expanded to include CT of abdomen and pelvis, to screen for infection-- COLITIS ON CAT SCAN Continue oxygen as needed Hypertension Continue baseline treatment Follow blood pressures Adjust treatments as needed pericardial effusion history pericardial tamponade- s/p window Follow clinically RA Osteoporosis immunocompromised No change to baseline treatment History of CVA Acute Expressive aphasia Chronic left-sided weakness May be contributory to encephalopathy Evaluate for acute CVA or brain bleed with head CT- NEGATIVE PER CT Seizure disorder Continue Keppra Diabetes mellitus type 2 Follow blood sugars Insulin sliding scale Diabetic diet Hypokalemia Will replace via IV DVT prophylaxis Lovenox. FAMILY NEEDS TO DECIDE HOW AGGRESSIVE THEY WANT TO BE- NEEDS NGT AND RESTRAINTS AND AGGRESSIVE TREATMENT OR HOSPICE AND TO BE MADE COMFORTABLE PATIENT IS NOT WANTING TO EAT Discharge Planning Pending family INPUT and hospice input Kolton Naranjo DO Mar 24, 2017 12:06
[2017-03-24] MEDS: D5-1/2 NS + KCL 20 MEQ INJ 1,000 ML IV SCH (15:31)
[2017-03-24 16:23] LABS: ALBUMIN 2.7 GM/DL (3.4-5.0); AST (GOT) 16 U/L (15-37); BICARBONATE 13.9 MEQ/L (21.0-32.0); BLOOD UREA NITROGEN 4 MG/DL (7-18); CALCIUM 8.8 MG/DL (8.5-10.1); CHLORIDE 101 MEQ/L (98-107); CREATININE 0.27 MG/DL (0.50-1.00); GLOMERULAR FILTRATION RATE 269 ML/MIN (>89); GLUCOSE,RANDOM 86 MG/DL (74-106); SODIUM (NA) 131 MEQ/L (136-145)
[2017-03-24 16:24] LABS: ALT (GPT) 22 U/L (10-53); AUTOMATED NEUTROPHIL # 7.8 TH/MM3 (1.8-7.7); BASOPHIL % 0.4 % (0.0-2.0); EOSINOPHIL # 0.1 TH/MM3 (0-0.4); EOSINOPHIL % 0.9 % (0.0-4.0); HEMATOCRIT 41.2 % (35.0-46.0); HEMOGLOBIN 13.7 GM/DL (11.6-15.3); LYMPH % 8.1 % (9.0-44.0); LYMPHOCYTE # 0.8 TH/MM3 (1.0-4.8); MEAN CELL VOLUME 82.1 FL (80.0-100.0); MEAN CORPUSCULAR HEMOGLOBIN 27.2 PG (27.0-34.0); MEAN CORPUSCULAR HGB CONC 33.1 % (32.0-36.0); MEAN PLATELET VOLUME 8.3 FL (7.0-11.0); MONO % 9.1 % (0.0-8.0); MONOCYTE # 0.9 TH/MM3 (0-0.9); NEUT % 81.5 % (16.0-70.0); PLATELET COUNT 199 TH/MM3 (150-450); RED BLOOD COUNT 5.02 MIL/MM3 (4.00-5.30); RED CELL DISTRIBUTION WIDTH 16.3 % (11.6-17.2); WHITE BLOOD COUNT 9.6 TH/MM3 (4.0-11.0)
[2017-03-24 16:26] LABS: ALKALINE PHOSPHATASE 135 U/L (45-117); TOTAL BILIRUBIN ADULT 0.4 MG/DL (0.2-1.0); TOTAL PROTEIN 6.2 GM/DL (6.4-8.2)
[2017-03-24] MEDS ORDERED: METOPROLOL TARTRATE 5 MG/5 ML VIAL IV PUSH ONE (23:30)
[2017-03-25] VITALS (12 sets, daily range): BP systolic 133–181; BP diastolic 55–100; PULSE 123–156; RESP 18–20; TEMP 97.6–103.1; O2SAT 96–100
[2017-03-25] MEDS: FREE WATER PO SCH ×6 (00:15→22:10)
[2017-03-25] MEDS: CEFEPIME INJ 2,000 MG in SODIUM CHLORIDE 0.9% INJ 100 ML IV SCH ×2 (01:25→09:11)
[2017-03-25] MEDS: D5-1/2 NS + KCL 20 MEQ INJ 1,000 ML IV SCH ×3 (01:27→22:30)
[2017-03-25] MEDS ORDERED: METOPROLOL TARTRATE 5 MG/5 ML VIAL IV PUSH ONE (01:45)
[2017-03-25] MEDS ORDERED: ACETAMINOPHEN 1000 MG/100 ML 100 ML IV ONE (02:00)
[2017-03-25] MEDS ORDERED: Vancomycin Consult Pharmacy 1 EA OTHER SCH (03:45)
[2017-03-25] MEDS ORDERED: SODIUM CHLOR 0.9% 1000 ML INJ 1,000 ML IV ONE (04:00)
[2017-03-25] MEDS: metroNIDAZOLE 500 MG INJ 100 ML IV SCH ×3 (04:27→22:06)
[2017-03-25] MEDS ORDERED: VANCOMYCIN INJ 1,200 MG in SODIUM CHLOR 0.9% 250 ML INJ 250 ML IV ONE (05:00)
[2017-03-25] MEDS ORDERED: VANCOMYCIN 0 MG/NS 250 ML IV ONE ×4 (05:00)
[2017-03-25] MEDS: FAMOTIDINE 20 MG TAB PO SCH ×2 (09:00→22:08)
[2017-03-25] MEDS: GABAPENTIN 400 MG CAP PO SCH ×3 (09:00→18:04)
[2017-03-25] MEDS: predniSONE 5 MG TAB PO SCH ×2 (09:00→22:08)
[2017-03-25] MEDS: LACTOBACILLUS ACIDOPHILUS TAB PO SCH ×3 (09:00→18:04)
[2017-03-25] MEDS: METOPROLOL TARTRATE 50 MG TAB PO SCH ×2 (09:00→22:09)
[2017-03-25] MEDS: CITALOPRAM HYDROBROMIDE 20 MG TAB PO SCH (09:00)
[2017-03-25] MEDS: levETIRAcetam 500 MG TAB PO SCH (09:00)
[2017-03-25] MEDS: SODIUM CHLORIDE 0.9% FLUSH 10 ML FLUSH IV FLUSH SCH ×2 (09:10→21:00)
--- NOTE | 2017-03-25 09:46 | HHI.PR ---
Subjective Remarks History from patient, her fianc at the bedside, ER physician communication, and review of medical records. Patient is awake, alert, oriented at the time of my exam. She is actually able to give better history than her fianc at the bedside. She is known to me from her prior hospitalization date on December 06, 2016. At that time, she presented with acute encephalopathy and family at that time gave her a history saying that patient always gets encephalopathic as this evening for a simple UTI. They have also given me history with her recurrent C. difficile at that time for which stool studies were sent and found to be positive for C. difficile. She was evaluated by infectious disease specialist while in hospital. Because her encephalopathy was so severe at that time, there was also thought of encephalitis/meningitis. However all workup was negative. CSF WBC was 15. Her C. difficile was positive. She was hospitalized at that time from December 06, 2016 to December 19, 2016 This time, the family stated that because they know she gets confused very easily with infections, they decided to bring her here early. They realize that she was getting somewhat confused at home. Patient at the time of exam by the ER physician and myself, patient was entirely awake, alert, oriented. She reports that she did have fevers at home which was 12. She denies any cough. However she reports some rattling in her chest. She reports of frequent urination and feeling off a lot of pressure in her bladder area. And when she goes to the bathroom usually, she would have difficulty going because of the pressure. She herself denies any diarrhea at the time of my interview. She reports that she finished her treatment for C. difficile with medications around January. Patient denies any sores or ulcers. No reports are invasive lines. 1-25Persisting problem of encephalopathy through today. Patient has no specific complaints of pain, says she isn't pain everywhere. Symptoms of expressive aphasia, patient has had stroke in the past. Family expresses that whenever she gets infections she is often like this but she's had a stroke in the past with infection also. Patient can express no specific complaints. 1-26 She does not yet to baseline. Improvement in encephalopathy is seen today. CT imaging shows no evidence of abscess. Colitis is present. CT of brain shows no evidence of acute CVA. 1-27 patient is not taking in anything orally. Not wanting to take her pills. Discussed with mother at bedside who is not the power of privacy attorney she states it' s the patient's daughter. Patient is a DO NOT RESUSCITATE hospice might be a consideration versus placing a feeding tube and aggressive treatment Continue on IV fluids have discussed with patient and family and RNs and case management Consult hospice for information 03-25 LABS STILL PENDING MAYBE A LITTLE MORE ALERT TODAY WITH FLUIDS DW FAMILY AT BEDSIDE-WILL NEED A FEEDING TUBE AND TUBE FEEDS FIANCE AT BEDSIDE- DW HIM Objective Vitals Vital Signs Date Time Temp Pulse Resp B/P (MAP) Pulse Ox O2 Delivery O2 Flow Rate FiO2 03/25/17 09:22 98.2 123 20 153/65 (94) 100 03/25/17 03:47 133 03/25/17 03:25 101.2 03/25/17 03:11 138 18 133/74 (93) 97 03/25/17 01:52 103.1 03/25/17 01:15 98.2 03/25/17 00:45 97.6 139 18 177/100 (125) 97 03/25/17 00:30 138 18 168/92 (117) 96 03/25/17 00:05 128 181/91 (121) 03/25/17 00:00 Room Air 03/24/17 23:49 123 18 169/95 (119) 97 03/24/17 23:44 145 174/97 (122) 03/24/17 23:41 144 03/24/17 21:05 100.2 124 18 186/98 (127) 95 03/24/17 20:00 Room Air 03/24/17 19:44 127 03/24/17 16:00 98.1 113 18 172/117 (135) 96 03/24/17 12:00 98.1 108 18 186/94 (124) 93 I/O 03/24/17 03/24/17 03/24/17 03/25/17 03/25/17 03/25/17 07:00 15:00 23:00 07:00 15:00 23:00 Intake Total 0 ml 0 ml 0 ml Balance 0 ml 0 ml 0 ml Intake Oral 0 ml 0 ml 0 ml # Voids 4 5 2 # Bowel Movements 0 3 1 Result Diagram: 03/24/17 1541 03/24/17 1541 Other Results Laboratory Tests Test 03/22/17 10:15 03/22/17 11:35 03/23/17 07:51 03/24/17 15:41 Blood Urea Nitrogen 9 MG/DL 7 MG/DL 4 MG/DL Creatinine 0.37 MG/DL 0.23 MG/DL 0.27 MG/DL Random Glucose 88 MG/DL 67 MG/DL 86 MG/DL Calcium Level 8.0 MG/DL 8.2 MG/DL 8.8 MG/DL Sodium Level 140 MEQ/L 136 MEQ/L 131 MEQ/L Potassium Level 3.1 MEQ/L 3.3 MEQ/L 3.2 MEQ/L Chloride Level 108 MEQ/L 105 MEQ/L 101 MEQ/L Carbon Dioxide Level 20.5 MEQ/L 19.2 MEQ/L 13.9 MEQ/L Anion Gap 12 MEQ/L 12 MEQ/L 16 MEQ/L Estimat Glomerular Filtration Rate 187 ML/MIN 324 ML/MIN 269 ML/MIN White Blood Count 10.0 TH/MM3 7.1 TH/MM3 9.6 TH/MM3 Red Blood Count 4.97 MIL/MM3 4.75 MIL/MM3 5.02 MIL/MM3 Hemoglobin 13.6 GM/DL 12.8 GM/DL 13.7 GM/DL Hematocrit 40.9 % 39.4 % 41.2 % Mean Corpuscular Volume 82.3 FL 82.9 FL 82.1 FL Mean Corpuscular Hemoglobin 27.4 PG 27.0 PG 27.2 PG Mean Corpuscular Hemoglobin Concent 33.3 % 32.6 % 33.1 % Red Cell Distribution Width 17.1 % 17.2 % 16.3 % Platelet Count 147 TH/MM3 156 TH/MM3 199 TH/MM3 Mean Platelet Volume 8.0 FL 8.3 FL 8.3 FL Neutrophils (%) (Auto) 84.4 % 79.5 % 81.5 % Lymphocytes (%) (Auto) 7.4 % 10.0 % 8.1 % Monocytes (%) (Auto) 7.5 % 8.9 % 9.1 % Eosinophils (%) (Auto) 0.2 % 1.1 % 0.9 % Basophils (%) (Auto) 0.5 % 0.5 % 0.4 % Neutrophils # (Auto) 8.4 TH/MM3 5.6 TH/MM3 7.8 TH/MM3 Lymphocytes # (Auto) 0.7 TH/MM3 0.7 TH/MM3 0.8 TH/MM3 Monocytes # (Auto) 0.8 TH/MM3 0.6 TH/MM3 0.9 TH/MM3 Eosinophils # (Auto) 0.0 TH/MM3 0.1 TH/MM3 0.1 TH/MM3 Basophils # (Auto) 0.0 TH/MM3 0.0 TH/MM3 0.0 TH/MM3 CBC Comment DIFF FINAL DIFF FINAL DIFF FINAL Differential Comment Total Protein 5.9 GM/DL 6.2 GM/DL Albumin 2.5 GM/DL 2.7 GM/DL Alkaline Phosphatase 144 U/L 135 U/L Aspartate Amino Transf (AST/SGOT) 32 U/L 16 U/L Alanine Aminotransferase (ALT/SGPT) 35 U/L 22 U/L Total Bilirubin 0.3 MG/DL 0.4 MG/DL Imaging Last Impressions Head CT 03/22/17 0000 Signed Impressions: Service Date/Time: February 20:16 - CONCLUSION: No evidence of acute cardiopulmonary disease. Prominent chronic white matter changes for a patient this age. Marcus Devi MD Abdomen/Pelvis CT 03/22/17 0000 Signed Impressions: Service Date/Time: February 20:18 - CONCLUSION: 1. Mild, diffuse colitis in the proper clinical setting. This is nonspecific, presumably infectious or inflammatory. No abscess, perforation or obstruction. 2. Chronic/unchange findings otherwise including multiple nonacute fractures and a tiny nonobstructing stone of the right kidney. Marcus Devi MD Chest X-Ray 03/21/17 1006 Signed Impressions: Service Date/Time: Tuesday, March 21, 2017 10:16 - CONCLUSION: Right midlung and left basilar scarring versus minimal infiltrates. Garret Weber MD Toe X-Ray 03/21/17 0000 Signed Impressions: Service Date/Time: Tuesday, March 21, 2017 15:45 - CONCLUSION: 1. 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 2. Prior compression screw fixation of the first MTP. 3. No acute fracture. Jorden Nina MD Objective Remarks GENERAL: Awake and alert but not oriented not answering any questions this time- - not taking any by mouth intake --not at baseline per mother SKIN: Warm and dry. HEAD: Atraumatic. Normocephalic. EYES: Pupils equal and round. No scleral icterus. No injection or drainage. ENT: No nasal bleeding or discharge. Mucous membranes pink and moist. Oral mucosa is slightly moist --tongue is midline NECK: Trachea midline. No JVD. Supple CARDIOVASCULAR: Regular rate and rhythm. S1 and S2 no S3 or S4 RESPIRATORY: No accessory muscle use. Clear to auscultation. Breath sounds equal bilaterally. coarse breath sounds GASTROINTESTINAL: Abdomen soft, non-tender, nondistended. Hepatic and splenic margins not palpable. MUSCULOSKELETAL: Extremities without clubbing, cyanosis, or edema. No obvious deformities. NEUROLOGICAL: Awake and alert. No obvious cranial nerve deficits. Motor grossly within normal limits. 3 out of 5 muscle strength in the arms and legs. ABNormal speech. PSYCHIATRIC: INAppropriate mood and affect; insight and judgment ABnormal. Procedures NONE Medications and IVs Current Medications Acetaminophen (Tylenol) 650 mg ONCE ONCE PO Last administered on 03/21/17at 10: 22; Start 03/21/17 at 10:15; Stop 03/21/17 at 10:16; Status DC Sodium Chloride 1,000 ml @ 1,000 mls/hr Q1H ONCE IV Last administered on at 10:48; Start 03/21/17 at 10:06; Stop 03/21/17 at 11:05; Status DC Sodium Chloride 800 ml @ 1,000 mls/hr Q48M ONCE IV Last administered on at 11:15; Start 03/21/17 at 10:06; Stop 03/21/17 at 10:53; Status DC Cefepime HCl 2000 mg/Sodium Chloride 100 ml @ 200 mls/hr ONCE ONCE IV Last administered on 03/21/17at 11:15; Start 03/21/17 at 11:00; Stop 03/21/17 at 11:29 ; Status DC Azithromycin 500 mg/Sodium Chloride 250 ml @ 250 mls/hr ONCE ONCE IV Last administered on 03/21/17at 11:51; Start 03/21/17 at 11:00; Stop 03/21/17 at 11:59 ; Status DC Sodium Chloride (NS Flush) 2 ml UNSCH PRN IV FLUSH FLUSH AFTER USING IV ACCESS Last administered on 03/23/17at 08:13; Start 03/21/17 at 13:00 Sodium Chloride (NS Flush) 2 ml BID IV FLUSH Last administered on 03/25/17at 09: 10; Start 03/21/17 at 21:00 Naloxone HCl (Narcan Inj) 0.4 mg UNSCH PRN IV PUSH SEE LABEL COMMENTS; Start at 13:00 Lactobacillus Acidophilus (Lactinex) 1 tab TID PO Last administered on at 18:19; Start 03/21/17 at 18:00 Levetriacetam (Keppra) 500 mg Q12HR PO Last administered on 03/24/17at 08:44; Start 03/21/17 at 21:00 Oxycodone/ Acetaminophen (Percocet 10-325 Mg) 1 tab Q6H PRN PO PAIN 1-10 Last administered on 03/24/17at 08:44; Start 03/21/17 at 15:30 Cefepime HCl 1000 mg/Sodium Chloride 100 ml @ 200 mls/hr Q12H IV Last administered on 03/22/17at 10:50; Start 03/21/17 at 23:00; Stop 03/22/17 at 15:53 ; Status DC Azithromycin 500 mg/Sodium Chloride 250 ml @ 250 mls/hr Q24H IV Last administered on 03/22/17 09:26; Start 03/22/17 at 09:00; Stop 03/22/17 at 15:53 ; Status DC Prednisone (Deltasone) 5 mg BID PO Last administered on 03/24/17at 08:44; Start 03/21/17 at 21:00 Famotidine (Pepcid) 20 mg Q12HR PO Last administered on 03/24/17 08:44; Start 03/21/17 at 21:00 Water (Free Water) 200 ml Q4HR PO ; Start 03/21/17 at 16:00; Stop 03/21/17 at 18 :41; Status DC Metronidazole 100 ml @ 100 mls/hr Q6HR IV ; Start 03/21/17 at 18:30; Status Cancel Sodium Chloride 1,000 ml @ 999 mls/hr BOLUS ONCE IV Last administered on 03/21at 18:51; Start 03/21/17 at 18:30; Stop 03/21/17 at 19:30; Status DC Sodium Chloride 1,000 ml @ 999 mls/hr BOLUS ONCE IV Last administered on 03/21at 18:51; Start 03/21/17 at 18:30; Stop 03/21/17 at 19:30; Status DC Lorazepam (Ativan Inj) 1 mg ONCE ONCE IV PUSH Last administered on 03/21/17at 18:52; Start 03/21/17 at 18:30; Stop 03/21/17 at 18:39; Status DC Vancomycin HCl (VANCOMYCIN for oral use only) 500 mg QID PO Last administered on 03/23/17at 22:34; Start 03/21/17 at 18:30; Status Future Hold Metronidazole 100 ml @ 100 mls/hr Q6H IV Last administered on 03/22/17at 13:00 ; Start 03/21/17 at 20:00; Stop 03/22/17 at 15:53; Status DC Water (Free Water) VOLUME OF WATER: 200 ML... Q4H PO Last administered on at 06:10; Start 03/21/17 at 18:00 Acetaminophen (Tylenol) 650 mg Q4H PRN PO fever >101; Start 03/21/17 at 19:45 Labetalol HCl (Trandate Inj) 10 mg Q20M PRN IV PUSH bp>160/90, HR >110 Last administered on 03/23/17at 11:45; Start 03/21/17 at 20:45; Stop 03/23/17 at 15:04 ; Status DC Ondansetron HCl (Zofran Inj) 4 mg Q6HR PRN IV PUSH Nausea Last administered on 03/22/17at 13:00; Start 03/22/17 at 10:45 Cefepime HCl 2000 mg/Sodium Chloride 100 ml @ 200 mls/hr Q8H IV Last administered on 03/25/17at 09:11; Start 03/22/17 at 17:00 Diatrizoate Meglum/ Diatrizoate Sod ( Gastroview Liq) 18 ml ONCE ONCE PO Last administered on 03/22/17at 16:22; Start 03/22/17 at 16:30; Stop 03/22/17 at 16:31; Status DC Lorazepam (Ativan Inj) 1 mg ONCE PRN IV PUSH [address] Last administered on 03/22/17at 19:30; Start 03/22/17 at 18:30; Stop 03/24/17 at 18:29 ; Status DC Potassium Chloride 100 ml @ 50 mls/hr Q2H IV Last administered on 03/22/17at 22 :31; Start 03/22/17 at 19:15; Stop 03/22/17 at 23:14; Status DC Iohexol (Omnipaque 350 Inj) 100 ml STK-MED ONCE IVCONTRAST Last administered on 03/22/17at 20:26; Start 03/22/17 at 20:26; Stop 03/22/17 at 20:27; Status DC Potassium Chloride 100 ml @ 50 mls/hr Q2H IV Last administered on 03/23/17at 11 :52; Start 03/23/17 at 09:30; Stop 03/23/17 at 13:29; Status DC Metronidazole (Flagyl) 500 mg Q8H PO Last administered on 03/24/17at 06:10; Start 03/23/17 at 12:00; Stop 03/25/17 at 03:48; Status DC Baclofen (Lioresal) 10 mg Q8HR PRN PO MUSCLE SPASMS Last administered on at 02:03; Start 03/23/17 at 13:30 Citalopram Hydrobromide (CeleXA) 20 mg DAILY PO Last administered on 03/24/17at 08:44; Start 03/24/17 at 09:00 Gabapentin (Neurontin) 800 mg TID PO Last administered on 03/23/17at 18:18; Start 03/23/17 at 18:00 Metoprolol Tartrate (Lopressor) 50 mg ONCE ONCE PO Last administered on at 14:24; Start 03/23/17 at 13:45; Stop 03/23/17 at 13:46; Status DC Metoprolol Tartrate (Lopressor) 50 mg Q12HR PO Last administered on 03/24/17at 08:44; Start 03/24/17 at 09:00 Enalaprilat (Vasotec Inj) 1.25 mg Q6H PRN IV PUSH SBP>160, DBP>90; Start at 13:45 Clonidine (Catapres) 0.1 mg Q6H PRN PO SBP>160, DBP>90; Start 03/23/17 at 13:45 Potassium Chloride/Dextrose/ Sod Cl 1,000 ml @ 100 mls/hr Q10H IV Last administered on 03/25/17at 01:27; Start 03/24/17 at 13:06 Metoprolol Tartrate (Lopressor Inj) 5 mg ONCE ONCE IV PUSH Last administered on 03/24/17at 23:44; Start 03/24/17 at 23:30; Stop 03/24/17 at 23:31; Status DC Metoprolol Tartrate (Lopressor Inj) 5 mg ONCE ONCE IV PUSH ; Start 03/25/17 at 01:45; Stop 03/25/17 at 01:59; Status DC Acetaminophen 100 ml @ 400 mls/hr ONCE ONCE IV Last administered on at 02:14; Start 03/25/17 at 02:00; Stop 03/25/17 at 02:14; Status DC Pharmacy Profile Note 0 ml @ 0 mls/hr UNSCH OTHER ; Start 03/25/17 at 03:45 Metronidazole 100 ml @ 100 mls/hr Q8H IV Last administered on 03/25/17at 04:27 ; Start 03/25/17 at 04:00 Sodium Chloride 1,000 ml @ 999 mls/hr BOLUS ONCE IV Last administered on 03/25at 04:27; Start 03/25/17 at 04:00; Stop 03/25/17 at 05:00; Status DC Vancomycin HCl 1200 mg/Sodium Chloride 262 ml @ 250 mls/hr ONCE ONCE IV ; Start 03/25/17 at 05:00; Stop 03/25/17 at 05:00; Status DC Vancomycin HCl 1200 mg/Sodium Chloride 262 ml @ 250 mls/hr ONCE ONCE IV ; Start 03/25/17 at 05:00; Stop 03/25/17 at 06:02; Status Cancel Vancomycin HCl 1200 mg/Sodium Chloride 262 ml @ 250 mls/hr ONCE ONCE IV Last administered on 03/25/17at 05:00; Start 03/25/17 at 05:00; Stop 03/25/17 at 06:02 ; Status DC Vancomycin/Sodium Chloride 200 ml @ 200 mls/hr Q12H IV ; Start 03/25/17 at 18: 00 Miscellaneous Information SPECIFIC LAB TO BE .. ONCE ONCE .XX ; Start 03/26 at 17:45; Stop 03/26/17 at 17:46 A/P Assessment and Plan Assessment and Plan 46-year-old female admitted secondary to sepsis with pneumonia. Encephalopathy present admitted. Encephalopathy improving. Has infection improving. Patient stable for transfer out of ICU. Continue cefepime and azithromycin. Continue to monitor blood work, labs ordered. Right middle lobe pneumonia Sepsis Baseline Immunocompromised state Continue cefepime Continue ORAL FLAGYL ORAL VANCO Workup expanded to include CT of abdomen and pelvis, to screen for infection-- COLITIS ON CAT SCAN Continue oxygen as needed Hypertension Continue baseline treatment Follow blood pressures Adjust treatments as needed pericardial effusion history pericardial tamponade- s/p window Follow clinically RA Osteoporosis immunocompromised No change to baseline treatment History of CVA Acute Expressive aphasia Chronic left-sided weakness May be contributory to encephalopathy Evaluate for acute CVA or brain bleed with head CT- NEGATIVE PER CT Seizure disorder Continue Keppra Diabetes mellitus type 2 Follow blood sugars Insulin sliding scale Diabetic diet Hypokalemia Will replace via IV DVT prophylaxis Lovenox. FAMILY NEEDS TO DECIDE HOW AGGRESSIVE THEY WANT TO BE- NEEDS NGT AND RESTRAINTS AND AGGRESSIVE TREATMENT OR HOSPICE AND TO BE MADE COMFORTABLE PATIENT IS NOT WANTING TO EAT WILL PLACE NGT AND START TUBE FEEDS Discharge Planning Pending family INPUT and hospice input Kolton Naranjo DO Mar 25, 2017 09:46
[2017-03-25] MEDS ORDERED: MORPHINE SULFATE 2 MG/ML INJ IV PUSH PRN (11:30)
[2017-03-25] MEDS ORDERED: MORPHINE SULFATE 4 MG/ML INJ IV PUSH PRN (11:30)
--- NOTE | 2017-03-25 11:59 | RADRPT ---
EXAM DATE/TIME: 03/25/2017 11:26 [facility] COMPARISON: No previous studies available for comparison. INDICATIONS : Confirm NG tube placement. MEDICAL HISTORY : Congestive heart failure. Hypertension. Diabetes mellitus type 2. SURGICAL HISTORY : Hip replacement. ENCOUNTER: Initial ACUITY: 1 day PAIN SCORE: 0/10 LOCATION: abdomen. FINDINGS: There is an NG tube overlying the midline chest with the proximal port well above the level of the di aphragm. Interval advancement is recommended there is The lungs are clear. The heart size appears normal. Fusion hardware identified within the cervical spine and evidence of prior kyphoplasty within the res ting spine. Severe degenerative changes of the bilateral glenohumeral joints. CONCLUSION: NG tube overlying the midline esophagus with the proximal port well above the level of the gastroesop hageal junction. Recommend advancement approximately 10 cm. Aditi Rodriguez MD on March 25, 2017 at 11:54 Board Certified Radiologist. This report was verified electronically.
--- NOTE | 2017-03-25 14:05 | HHI.IDPN ---
Note Infectious Disease Note ID Coverage. is a 46 y/o CM with PMHx of DM2, HTN, ? reported history of Multiple Sclerosis(s/b neurologist in past), RA on prednisone and leflulonamide, h.o Cdiff, h/o spine infection on keflex stock counter, Osteoporosis ? secondary to prednisone. She used to walk 6 years back then subsequently became wheel chair bound for trips. The patient is now in crippling pain secondary to RA constant neck pain inability to move neck. She sleeps in her wheel chair and has not slept in bed for years. Patient is mostly wheel chair bound but is able to walk short distances. During that November admission in 2017 patient had bilateral lower extremity cellulitis as well as diagnosed with C. difficile during that admission. Meningoencephalitis workup was negative. Patient follows at baseline with [facility] (Rheum) and (ID). 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 She also has hardware in her cervical spine which unfortunately cannot be removed due to stability issues. Blood cultures done on admission has Morganella and gram positive cocci. Patient is laying on blanket which is warming instead of cooling. Put[place] was not correctly operated. RN notes she has been on the blanket since early this am. Had temp of 103 early this am before the blanket was applied. Patient briefly opens eyes. Difficult to arouse. Current temp - 101 axilla. Antibiotics Cefepime IV Vanco IV Flagyl IV PO Vanco. Lines Line sites with no e.o infection Past Medical History DM HTN MS RA, immunocompromised Questionable CHF Osteoporosis Past Surgical History Cervical fusion 2007 Allergies: Coded Allergies: hydromorphone (Verified Allergy, Unknown, 03/21/17) metformin (Verified Allergy, Unknown, 03/21/17) Objective . Vital Signs Date Time Temp Pulse Resp B/P (MAP) Pulse Ox O2 Delivery O2 Flow Rate FiO2 03/25/17 12:01 102.4 156 20 161/80 (107) 97 03/25/17 09:22 98.2 123 20 153/65 (94) 100 03/25/17 03:47 133 03/25/17 03:25 101.2 03/25/17 03:11 138 18 133/74 (93) 97 03/25/17 01:52 103.1 1/28/18 01:15 98.2 03/25/17 00:45 97.6 139 18 177/100 (125) 97 03/25/17 00:30 138 18 168/92 (117) 96 03/25/17 00:05 128 181/91 (121) 03/25/17 00:00 Room Air 03/24/17 23:49 123 18 169/95 (119) 97 03/24/17 23:44 145 174/97 (122) 03/24/17 23:41 144 03/24/17 21:05 100.2 124 18 186/98 (127) 95 03/24/17 20:00 Room Air 03/24/17 19:44 127 03/24/17 16:00 98.1 113 18 172/117 (135) 96 Laboratory Tests Test 03/24/17 15:41 White Blood Count 9.6 TH/MM3 Red Blood Count 5.02 MIL/MM3 Hemoglobin 13.7 GM/DL Hematocrit 41.2 % Mean Corpuscular Volume 82.1 FL Mean Corpuscular Hemoglobin 27.2 PG Mean Corpuscular Hemoglobin Concent 33.1 % Red Cell Distribution Width 16.3 % Platelet Count 199 TH/MM3 Mean Platelet Volume 8.3 FL Neutrophils (%) (Auto) 81.5 % Lymphocytes (%) (Auto) 8.1 % Monocytes (%) (Auto) 9.1 % Eosinophils (%) (Auto) 0.9 % Basophils (%) (Auto) 0.4 % Neutrophils # (Auto) 7.8 TH/MM3 Lymphocytes # (Auto) 0.8 TH/MM3 Monocytes # (Auto) 0.9 TH/MM3 Eosinophils # (Auto) 0.1 TH/MM3 Basophils # (Auto) 0.0 TH/MM3 CBC Comment DIFF FINAL Differential Comment Laboratory Tests Test 03/24/17 15:41 Blood Urea Nitrogen 4 MG/DL Creatinine 0.27 MG/DL Random Glucose 86 MG/DL Total Protein 6.2 GM/DL Albumin 2.7 GM/DL Calcium Level 8.8 MG/DL Alkaline Phosphatase 135 U/L Aspartate Amino Transf (AST/SGOT) 16 U/L Alanine Aminotransferase (ALT/SGPT) 22 U/L Total Bilirubin 0.4 MG/DL Sodium Level 131 MEQ/L Potassium Level 3.2 MEQ/L Chloride Level 101 MEQ/L Carbon Dioxide Level 13.9 MEQ/L Anion Gap 16 MEQ/L Estimat Glomerular Filtration Rate 269 ML/MIN Microbiology Date/Time Source Procedure Growth Status 03/22/17 19:02 Blood Peripheral Aerobic Blood Culture - Preliminary NO GROWTH IN 3 DAYS Resulted 03/22/17 19:02 Blood Peripheral Anaerobic Blood Culture - Preliminary NO GROWTH IN 3 DAYS Resulted 03/22/17 18:53 Blood Peripheral Aerobic Blood Culture - Preliminary NO GROWTH IN 3 DAYS Resulted 03/22/17 18:53 Blood Peripheral Anaerobic Blood Culture - Preliminary NO GROWTH IN 3 DAYS Resulted Imaging Abdomen X-Ray 03/25/17 0000 Signed Impressions: Service Date/Time: Saturday, March 25, 2017 11:26 - CONCLUSION: NG tube overlying the midline esophagus with the proximal port well above the level of the gastroesophageal junction. Recommend advancement approximately 10 cm. Aditi Rodriguez MD Head CT 03/22/17 0000 Signed Impressions: Service Date/Time: February 20:16 - CONCLUSION: No evidence of acute cardiopulmonary disease. Prominent chronic white matter changes for a patient this age. Marcus Devi MD Abdomen/Pelvis CT 03/22/17 0000 Signed Impressions: Service Date/Time: February 20:18 - CONCLUSION: 1. Mild, diffuse colitis in the proper clinical setting. This is nonspecific, presumably infectious or inflammatory. No abscess, perforation or obstruction. 2. Chronic/unchange findings otherwise including multiple nonacute fractures and a tiny nonobstructing stone of the right kidney. Marcus Devi MD Chest X-Ray 03/21/17 1006 Signed Impressions: Service Date/Time: Tuesday, March 21, 2017 10:16 - CONCLUSION: Right midlung and left basilar scarring versus minimal infiltrates. Garret Weber MD Toe X-Ray 03/21/17 0000 Signed Impressions: Service Date/Time: Tuesday, March 21, 2017 15:45 - CONCLUSION: 1. 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 2. Prior compression screw fixation of the first MTP. 3. No acute fracture. Jorden Nina MD Physical exam. GENERAL: Patient is somnolent and barely responsive. HEENT: Head atraumatic. No icterus. No conjunctival injection. NECK: No adenopathy or swelling. LUNGS: Clear breath sounds. Diminished at the bases. CARDIAC: Regular rate and rhythm. No murmur audible. ABDOMEN: Soft, non tender. EXTREMITIES: No CCE. deformities at the upper extremities. NEURO: Difficult to assess. Not following commands. SKIN: No rash. Assessment & Plan Remarks Sepsis present on admission. Morgenella bacteremia source unknown at the present time workup in progress Pneumonia CAP vs Possible aspiration pneumonia Rheumatoid arthritis on immunosuppressants, Immunocompromised ? multiple sclerosis. h/o Cdiff. Fever. ? drug vs aspiration. The gram positive cocci could be contaminant. Recs: Change Cefepime to Aztreonam. Continue Vanco IV (pending cultures) Continue Flagyl (may cause encephalopathy please follow pt clinically). Started for possible non cdiff Colitis. Continue oral vanco. follow cultures follow clinically. I have instructed RN to discontinue the blanket now and wait about an hour and call me with temp. Discussed with Dr Harden. Rashaun Sweet MD Mar 25, 2017 14:05
[2017-03-25 14:13] LABS: HEMATOCRIT 43.4 % (35.0-46.0); MEAN CELL VOLUME 82.7 FL (80.0-100.0); MEAN CORPUSCULAR HEMOGLOBIN 26.6 PG (27.0-34.0); MEAN CORPUSCULAR HGB CONC 32.2 % (32.0-36.0); MEAN PLATELET VOLUME 8.4 FL (7.0-11.0); PLATELET COUNT 189 TH/MM3 (150-450); RED BLOOD COUNT 5.24 MIL/MM3 (4.00-5.30); RED CELL DISTRIBUTION WIDTH 16.6 % (11.6-17.2); WHITE BLOOD COUNT 12.1 TH/MM3 (4.0-11.0)
[2017-03-25 14:41] LABS: ALBUMIN 2.4 GM/DL (3.4-5.0); AST (GOT) 11 U/L (15-37); BICARBONATE 14.3 MEQ/L (21.0-32.0); BLOOD UREA NITROGEN 6 MG/DL (7-18); CALCIUM 8.3 MG/DL (8.5-10.1); CHLORIDE 102 MEQ/L (98-107); CREATININE 0.53 MG/DL (0.50-1.00); GLOMERULAR FILTRATION RATE 124 ML/MIN (>89); GLUCOSE,RANDOM 263 MG/DL (74-106); MAGNESIUM 1.4 MG/DL (1.5-2.5); SODIUM (NA) 131 MEQ/L (136-145)
[2017-03-25 14:44] LABS: ALKALINE PHOSPHATASE 134 U/L (45-117); ALT (GPT) 17 U/L (10-53); FREE T4 1.57 NG/DL (0.76-1.46); PHOSPHORUS 1.2 MG/DL (2.5-4.9); TOTAL BILIRUBIN ADULT 0.4 MG/DL (0.2-1.0); TOTAL PROTEIN 6.2 GM/DL (6.4-8.2)
[2017-03-25 14:53] LABS: BANDS 13 % (0-6); LYMPHOCYTES 8 % (9-44); MONOCYTES 6 % (0-8); NEUTROPHIL # MANUAL DIFF 10.3 TH/MM3 (1.8-7.7); POLYS (SEG NEUTROPHILS) 72 % (16-70)
[2017-03-25] MEDS: AZTREONAM INJ 2,000 MG in SODIUM CHLORIDE 0.9% INJ 100 ML IV SCH ×2 (16:35→23:58)
[2017-03-25] MEDS: VANCOMYCIN 1 GM/200 ML PREMIX IV SCH (18:04)
[2017-03-25] MEDS: ACETAMINOPHEN 325 MG TAB PO PRN (22:21)
[2017-03-25] MEDS: levETIRAcetam 500 MG/5 ML UDC NG SCH (23:58)
[2017-03-26] VITALS (8 sets, daily range): BP systolic 111–170; BP diastolic 53–98; PULSE 94–135; RESP 18–21; TEMP 98.9–102; O2SAT 96–100
[2017-03-26] MEDS: FREE WATER PO SCH ×4 (02:42→13:41)
[2017-03-26] MEDS: metroNIDAZOLE 500 MG INJ 100 ML IV SCH ×2 (04:29→13:41)
[2017-03-26] MEDS: D5-1/2 NS + KCL 20 MEQ INJ 1,000 ML IV SCH ×2 (04:33→15:30)
[2017-03-26] MEDS: VANCOMYCIN 1 GM/200 ML PREMIX IV SCH (05:41)
[2017-03-26] MEDS: CITALOPRAM HYDROBROMIDE 20 MG TAB PO SCH (10:00)
[2017-03-26] MEDS: LACTOBACILLUS ACIDOPHILUS TAB PO SCH ×3 (10:00→18:00)
[2017-03-26] MEDS: SODIUM CHLORIDE 0.9% FLUSH 10 ML FLUSH IV FLUSH SCH (10:00)
[2017-03-26] MEDS: FAMOTIDINE 20 MG TAB PO SCH (10:00)
[2017-03-26] MEDS: predniSONE 5 MG TAB PO SCH (10:00)
[2017-03-26] MEDS: METOPROLOL TARTRATE 50 MG TAB PO SCH (10:00)
[2017-03-26] MEDS: GABAPENTIN 400 MG CAP PO SCH ×2 (10:01→13:41)
--- NOTE | 2017-03-26 10:23 | HHI.IDPN ---
Subjective Subjective Remarks is a 46 y/o CM with PMHx of DM2, HTN, ? reported history of Multiple Sclerosis(s/b neurologist in past), RA on prednisone and leflulonamide, h.o Cdiff, h/o spine infection on keflex halfway, Osteoporosis ? secondary to prednisone. She used to walk 6 years back then subsequently became wheel chair bound for trips. The patient is now in crippling pain secondary to RA constant neck pain inability to move neck. She sleeps in her wheel chair and has not slept in bed for years. Patient is mostly wheel chair bound but is able to walk short distances. During that November admission in 2016 patient had bilateral lower extremity cellulitis as well as diagnosed with C. difficile during that admission. Meningoencephalitis workup was negative. Patient follows at baseline with [facility] (Rheum) and (ID). 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 She also has hardware in her cervical spine which unfortunately cannot be removed due to stability issues. After her November admission patient was discharged home and was back to her normal self which is sleeping in her wheelchair and needing assistance to even go to the bathroom. Approximately 2 weeks back patient's mother noticed worsening mental status and patient not eating much. Approximately a day prior to admission patient apparently had fever 101 associated with rigors and hence was brought to the hospital for further evaluation. Patient met criteria for sepsis on admission. Blood cultures done on admission are positive for gram-negative rods and infectious disease is consulted for the same. Overnight events reviewed Fevers defervescing after Cefepime changed to Azactam IV Repeat blood cultures pending. No rash No diarrhea Antibiotics Azactam IV Vanco IV Lines Line sites with no e.o infection Past Medical History DM HTN MS RA, immunocompromised Questionable CHF Osteoporosis Past Surgical History Cervical fusion 2007 Allergies: Coded Allergies: hydromorphone (Verified Allergy, Unknown, 03/21/17) metformin (Verified Allergy, Unknown, 03/21/17) Objective . Vital Signs Date Time Temp Pulse Resp B/P (MAP) Pulse Ox O2 Delivery O2 Flow Rate FiO2 03/26/17 08:48 99.8 133 18 170/86 (114) 98 03/26/17 04:00 99.0 114 20 111/53 (72) 98 03/26/17 04:00 108 03/26/17 00:00 99 03/26/17 00:00 100.2 110 20 143/79 (100) 97 03/25/17 20:00 Room Air 03/25/17 20:00 123 03/25/17 20:00 102.5 134 20 149/55 (86) 97 03/25/17 16:30 99.9 03/25/17 12:01 102.4 156 20 161/80 (107) 97 . Laboratory Tests Test 03/24/17 15:41 03/25/17 13:38 White Blood Count 9.6 TH/MM3 12.1 TH/MM3 Red Blood Count 5.02 MIL/MM3 5.24 MIL/MM3 Hemoglobin 13.7 GM/DL 14.0 GM/DL Hematocrit 41.2 % 43.4 % Mean Corpuscular Volume 82.1 FL 82.7 FL Mean Corpuscular Hemoglobin 27.2 PG 26.6 PG Mean Corpuscular Hemoglobin Concent 33.1 % 32.2 % Red Cell Distribution Width 16.3 % 16.6 % Platelet Count 199 TH/MM3 189 TH/MM3 Mean Platelet Volume 8.3 FL 8.4 FL Neutrophils (%) (Auto) 81.5 % Lymphocytes (%) (Auto) 8.1 % Monocytes (%) (Auto) 9.1 % Eosinophils (%) (Auto) 0.9 % Basophils (%) (Auto) 0.4 % Neutrophils # (Auto) 7.8 TH/MM3 Lymphocytes # (Auto) 0.8 TH/MM3 Monocytes # (Auto) 0.9 TH/MM3 Eosinophils # (Auto) 0.1 TH/MM3 Basophils # (Auto) 0.0 TH/MM3 CBC Comment DIFF FINAL AUTO DIFF Differential Comment FINAL DIFF MANUAL Differential Total Cells Counted 100 Neutrophils % (Manual) 72 % Band Neutrophils % 13 % Lymphocytes % 8 % Monocytes % 6 % Eosinophils % 1 % Neutrophils # (Manual) 10.3 TH/MM3 Platelet Estimate NORMAL Platelet Morphology Comment NORMAL Red Cell Morphology Comment NORMAL Laboratory Tests Test 03/24/17 15:41 03/25/17 13:38 Blood Urea Nitrogen 4 MG/DL 6 MG/DL Creatinine 0.27 MG/DL 0.53 MG/DL Random Glucose 86 MG/DL 263 MG/DL Total Protein 6.2 GM/DL 6.2 GM/DL Albumin 2.7 GM/DL 2.4 GM/DL Calcium Level 8.8 MG/DL 8.3 MG/DL Alkaline Phosphatase 135 U/L 134 U/L Aspartate Amino Transf (AST/SGOT) 16 U/L 11 U/L Alanine Aminotransferase (ALT/SGPT) 22 U/L 17 U/L Total Bilirubin 0.4 MG/DL 0.4 MG/DL Sodium Level 131 MEQ/L 131 MEQ/L Potassium Level 3.2 MEQ/L 3.3 MEQ/L Chloride Level 101 MEQ/L 102 MEQ/L Carbon Dioxide Level 13.9 MEQ/L 14.3 MEQ/L Anion Gap 16 MEQ/L 15 MEQ/L Estimat Glomerular Filtration Rate 269 ML/MIN 124 ML/MIN Phosphorus Level 1.2 MG/DL Magnesium Level 1.4 MG/DL Free Thyroxine 1.57 NG/DL Thyroid Stimulating Hormone 3rd Gen 2.320 uIU/ML Microbiology Date/Time Source Procedure Growth Status 03/25/17 13:38 Blood Peripheral Aerobic Blood Culture Pending Received 03/25/17 13:38 Blood Peripheral Anaerobic Blood Culture Pending Received 03/25/17 13:34 Blood Peripheral Aerobic Blood Culture Pending Received 03/25/17 13:34 Blood Peripheral Anaerobic Blood Culture Pending Received Imaging Last Impressions Head CT 03/22/17 0000 Signed Impressions: Service Date/Time: February 20:16 - CONCLUSION: No evidence of acute cardiopulmonary disease. Prominent chronic white matter changes for a patient this age. Marcus Devi MD Abdomen/Pelvis CT 03/22/17 0000 Signed Impressions: Service Date/Time: February 20:18 - CONCLUSION: 1. Mild, diffuse colitis in the proper clinical setting. This is nonspecific, presumably infectious or inflammatory. No abscess, perforation or obstruction. 2. Chronic/unchange findings otherwise including multiple nonacute fractures and a tiny nonobstructing stone of the right kidney. Marcus Devi MD Chest X-Ray 03/21/17 1006 Signed Impressions: Service Date/Time: Tuesday, March 21, 2017 10:16 - CONCLUSION: Right midlung and left basilar scarring versus minimal infiltrates. Garret Weber MD Toe X-Ray 03/21/17 0000 Signed Impressions: Service Date/Time: Tuesday, March 21, 2017 15:45 - CONCLUSION: 1. 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 2. Prior compression screw fixation of the first MTP. 3. No acute fracture. Jorden Nina MD Physical Exam GENERAL: Obese, Cushingoid appearing patient. No cardiopulm distress. SKIN: Joints with significant deformities [place] of upper extremities. Upper extremity again difficult to assess but area of chronic scabbing with surrounding erythema. HEAD: Atraumatic. Normocephalic. No temporal or scalp tenderness. EYES: Pupils equal round and reactive. Extraocular motions intact. No scleral icterus. No injection or drainage. ENT: Nose without bleeding, purulent drainage. NECK: Trachea midline. Large neck. No lymphadenopathy. Hardware in neck ? chronic neck stiffness based on prior exams. CARDIOVASCULAR: Regular rate and rhythm without murmurs. RESPIRATORY: Clear to auscultation. Breath sounds equal bilaterally. No wheezes , rales, or rhonchi. GASTROINTESTINAL: Abdomen soft, non-tender, nondistended. MUSCULOSKELETAL: Extremities without clubbing, cyanosis, or edema. Rest as described under skin section. NEUROLOGICAL: Somnolent, not following commands, moans and groans. Opens eyes spontaneously. Psych: cooperative IV line sites with no e.o infection. Assessment & Plan Remarks Sepsis present on admission. Morganella bacteremia GP bacteremia which is prelim ID as anaerobe. Pneumonia CAP vs Possible aspiration pneumonia Rheumatoid arthritis on immunosuppressants, Immune compromised ? multiple sclerosis. h/o Cdiff Acute metabolic encephalopathy: sepsis, subclinical seizures breakthrough, ? new stroke. Recs: Continue Azactam IV (Morganella bacteremia) DC Vanco IV Continue Flagyl IV (anaerobic bacteremia) Continue oral vanco (recently treated for Cdiff) follow cultures follow clinically. pippa RN pippa Mother, daughter (POA) and significant other in room pippa Zavala: neuro consult, EEG. Palliative care follow up. Priscilla Corey MD Mar 26, 2017 10:23
[2017-03-26] MEDS: AZTREONAM INJ 2,000 MG in SODIUM CHLORIDE 0.9% INJ 100 ML IV SCH ×2 (10:54→20:00)
--- NOTE | 2017-03-26 11:46 | HHI.HCPN ---
Reason for visit a. To assist with evaluation and management of symptoms including: Pain, debility. b. To assist medical decision maker(s) with: better understanding of current medical conditions; weighing benefits/burdens of medical treatment options; making medical treatment decisions. . Subjective/Interval History Palliative care follow-up for further clarification of goals of care, family support. Reviewed weekend events. patient with worsening encephalopathy, episodes of fever and poor oral intake. NG feeding tube placed. Patient was continued of IV abx and fluids. Max temperature 102.5 last night. ID following for treatment of Morganella bacteremia. repeat blood culture 03/25 pending. Neurology has been consulted, pending. pending EEG. Bedside conversation with patient's family to include daughter Karolina, mother Jemima and fianc [place]. Reviewed events over the weekend and current medical management. Goals of care readdressed. Family electing to continue current aggressive management short of no code, allow a few more days for clinical improvement. Family reports that patient gets this sick every time she gets an infection and that they are hopeful that she will recover. Likely trajectory of disease reviewed with family. Family understands that patient will likely continue to have repeated infections given general debility, multiple ongoing chronic comorbidities, autoimmune disorders and underlying immunocompromise. I have discussed possibility of further setbacks and progressive overall decline. Family declines hospice informative visit at this time but are receptive to hospice should pt's condition does not improve or worsen. Family verbalized being realistic regarding pt's condition but wish to "give her a change". Ongoing emotional support and active listening provided to family. Family receptive to palliative care follow-ups. . Family/friend interactions See interval note. . Advance Directives Living Will: Never completed Health Care Surrogate: Never completed Durable Power of Mold Runner: Never completed Advance Directive Specifics Health Care Surrogate(s): No advance directives completed. As per [place] statute, healthcare proxy decision maker falls to patient's daughter Karolina Harris. . Significant change in goals: Family electing to continue aggressive management short of no code. . Objective Vital Signs Date Time Temp Pulse Resp B/P (MAP) Pulse Ox O2 Delivery O2 Flow Rate FiO2 03/26/17 08:48 99.8 133 18 170/86 (114) 98 03/26/17 04:00 99.0 114 20 111/53 (72) 98 03/26/17 04:00 108 03/26/17 00:00 99 03/26/17 00:00 100.2 110 20 143/79 (100) 97 03/25/17 20:00 Room Air 03/25/17 20:00 123 03/25/17 20:00 102.5 134 20 149/55 (86) 97 03/25/17 16:30 99.9 03/25/17 12:01 102.4 156 20 161/80 (107) 97 Intake & Output 03/26/17 03/26/17 07:00 19:00 Intake Total 1280 ml Balance 1280 ml IV Total 1280 ml Physical Exam CONSTITUTIONAL/GENERAL: This is an adequately nourished patient in no acute distress. Obtunded. TUBES/LINES/DRAINS: PIV's. NG to left nare. SKIN: No jaundice, rashes, or lesions. Ecchymoses on upper and bilateral lower extremities. Skin temperature appropriate. Not diaphoretic. HEAD: Atraumatic. Normocephalic. EYES: Pupils equal and round and reactive. No scleral icterus. No injection or drainage. ENT: Hearing grossly normal. Nose without bleeding or purulent drainage. Moist oral mucosa. NECK: Trachea midline. Supple, nontender. Cushingoid appearing. CARDIOVASCULAR: Regular rate and rhythm without murmurs, gallops, or rubs. RESPIRATORY/CHEST: Symmetric, unlabored respirations. Clear to auscultation. Breath sounds equal bilaterally. No wheezes, rales, or rhonchi. GASTROINTESTINAL: Abdomen soft, non-tender, nondistended. No hepato-splenomegaly , or palpable masses. No guarding. Bowel sounds present. GENITOURINARY: Without palpable bladder distension. Ocampo catheter in place. MUSCULOSKELETAL: Extremities without clubbing, cyanosis, or edema. RA related deformities to bilateral upper and lower extremities. NEUROLOGICAL: Obtunded. Briefly opening eyes to verbal stimuli. Not following commands. Not attempting to communicate. PSYCHIATRIC: Unable to evaluate giving condition, obtunded. Appears calm. . Diagnostic Tests Laboratory Laboratory Tests Test 03/24/17 15:41 03/25/17 13:38 White Blood Count 9.6 TH/MM3 (4.0-11.0) 12.1 TH/MM3 (4.0-11.0) Red Blood Count 5.02 MIL/MM3 (4.00-5.30) 5.24 MIL/MM3 (4.00-5.30) Hemoglobin 13.7 GM/DL (11.6-15.3) 14.0 GM/DL (11.6-15.3) Hematocrit 41.2 % (35.0-46.0) 43.4 % (35.0-46.0) Mean Corpuscular Volume 82.1 FL (80.0-100.0) 82.7 FL (80.0-100.0) Mean Corpuscular Hemoglobin 27.2 PG (27.0-34.0) 26.6 PG (27.0-34.0) Mean Corpuscular Hemoglobin Concent 33.1 % (32.0-36.0) 32.2 % (32.0-36.0) Red Cell Distribution Width 16.3 % (11.6-17.2) 16.6 % (11.6-17.2) Platelet Count 199 TH/MM3 (150-450) 189 TH/MM3 (150-450) Mean Platelet Volume 8.3 FL (7.0-11.0) 8.4 FL (7.0-11.0) Neutrophils (%) (Auto) 81.5 % (16.0-70.0) Lymphocytes (%) (Auto) 8.1 % (9.0-44.0) Monocytes (%) (Auto) 9.1 % (0.0-8.0) Eosinophils (%) (Auto) 0.9 % (0.0-4.0) Basophils (%) (Auto) 0.4 % (0.0-2.0) Neutrophils # (Auto) 7.8 TH/MM3 (1.8-7.7) Lymphocytes # (Auto) 0.8 TH/MM3 (1.0-4.8) Monocytes # (Auto) 0.9 TH/MM3 (0-0.9) Eosinophils # (Auto) 0.1 TH/MM3 (0-0.4) Basophils # (Auto) 0.0 TH/MM3 (0-0.2) CBC Comment DIFF FINAL AUTO DIFF Differential Comment FINAL DIFF MANUAL Blood Urea Nitrogen 4 MG/DL (7-18) 6 MG/DL (7-18) Creatinine 0.27 MG/DL (0.50-1.00) 0.53 MG/DL (0.50-1.00) Random Glucose 86 MG/DL (74-106) 263 MG/DL (74-106) Total Protein 6.2 GM/DL (6.4-8.2) 6.2 GM/DL (6.4-8.2) Albumin 2.7 GM/DL (3.4-5.0) 2.4 GM/DL (3.4-5.0) Calcium Level 8.8 MG/DL (8.5-10.1) 8.3 MG/DL (8.5-10.1) Alkaline Phosphatase 135 U/L (45-117) 134 U/L (45-117) Aspartate Amino Transf (AST/SGOT) 16 U/L (15-37) 11 U/L (15-37) Alanine Aminotransferase (ALT/SGPT) 22 U/L (10-53) 17 U/L (10-53) Total Bilirubin 0.4 MG/DL (0.2-1.0) 0.4 MG/DL (0.2-1.0) Sodium Level 131 MEQ/L (136-145) 131 MEQ/L (136-145) Potassium Level 3.2 MEQ/L (3.5-5.1) 3.3 MEQ/L (3.5-5.1) Chloride Level 101 MEQ/L (98-107) 102 MEQ/L (98-107) Carbon Dioxide Level 13.9 MEQ/L (21.0-32.0) 14.3 MEQ/L (21.0-32.0) Anion Gap 16 MEQ/L (5-15) 15 MEQ/L (5-15) Estimat Glomerular Filtration Rate 269 ML/MIN (>89) 124 ML/MIN (>89) Differential Total Cells Counted 100 Neutrophils % (Manual) 72 % (16-70) Band Neutrophils % 13 % (0-6) Lymphocytes % 8 % (9-44) Monocytes % 6 % (0-8) Eosinophils % 1 % (0-4) Neutrophils # (Manual) 10.3 TH/MM3 (1.8-7.7) Platelet Estimate NORMAL (NORMAL) Platelet Morphology Comment NORMAL (NORMAL) Red Cell Morphology Comment NORMAL (NORMAL) Phosphorus Level 1.2 MG/DL (2.5-4.9) Magnesium Level 1.4 MG/DL (1.5-2.5) Free Thyroxine 1.57 NG/DL (0.76-1.46) Thyroid Stimulating Hormone 3rd Gen 2.320 uIU/ML (0.358-3.740) Result Diagram: 03/25/17 1338 03/25/17 1338 Microbiology Microbiology Date/Time Source Procedure Growth Status 03/25/17 13:38 Blood Peripheral Aerobic Blood Culture - Preliminary NO GROWTH IN 1 DAY Resulted 03/25/17 13:38 Blood Peripheral Anaerobic Blood Culture - Preliminary NO GROWTH IN 1 DAY Resulted 03/25/17 13:34 Blood Peripheral Aerobic Blood Culture - Preliminary NO GROWTH IN 1 DAY Resulted 03/25/17 13:34 Blood Peripheral Anaerobic Blood Culture - Preliminary NO GROWTH IN 1 DAY Resulted Imaging Last 48 hours Impressions Abdomen X-Ray 03/25/17 0000 Signed Impressions: Service Date/Time: Saturday, March 25, 2017 11:26 - CONCLUSION: NG tube overlying the midline esophagus with the proximal port well above the level of the gastroesophageal junction. Recommend advancement approximately 10 cm. Aditi Rodriguez MD Assessment and Plan Disease Oriented Problem List: (1) Acute metabolic encephalopathy (2) Pneumonia (3) Sepsis (4) Rheumatoid arthritis (5) Physical deconditioning Symptom Scale: (1) Debility 0-10 Scale: Unable to quantify (2) Pain 0-10 Scale: Unable to quantify Pertinent Non-Medical Issues Psychosocial: Patient was born and raised in [place], lived in [place] for some time, she now lives in [place] with her fianc and her daughter Karolina, age 22. Patient is . 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 Highest level of education is high school. 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 Legal: No advance directives completed. Ethical issues impacting care: No ethical issues identified. . Important Contacts Karolina, daughter: [phone] Jemima, mother: [phone] mini Tim: [phone] . Prognosis Mrs. Harris is a 46-year-old female with a medical history significant for rheumatoid arthritis, diabetes mellitus, hypertension, seizure activity, OA and history of CVA. Patient currently admitted secondary to sepsis, pneumonia. Recent acute hospitalization in November 2016 secondary to encephalitis, bilateral lower lobe cellulitis and C. difficile colitis. Patient with progressive decline, worsen since November 2016. Patient at high risk for further complications, are aggressive decline and given general debility, multiple ongoing chronic comorbidities, autoimmune disorders and underlying immunocompromise state. . Code Status: No Code Plan * CODE STATUS: DNR/DNI. * HEALTHCARE DECISION-MAKING: Patient unable to participating in medical decision-making given clinical condition, encephalopathy. Likely to regain capacity. No advance directives completed. As per [place] statute, healthcare proxy decision-making falls to patient's only daughter Karolina Harris. Daughter is supported by patient's mother Jemima and gabriel Tim. * GOALS OF CARE: Family electing to continue aggressive management short of NO code. Wishing to allow a few more days for clinical improvement. Likely trajectory of disease reviewed with family. Family understands that patient will likely continue to have repeated infections given general debility, multiple ongoing chronic comorbidities, autoimmune disorders and underlying immunocompromise. I have discussed possibility of further setbacks, decline and recurrent hospitalizations in the future. Family receptive to palliative care f /u, ongoing goals of care conversation. * Family declining hospice informative visit at this time. However, receptive to hospice should patient's clinical condition does not improve or worsen. * SYMPTOMS: = Pain, acute on chronic. Secondary to RA, chronic debility, bed/ chair bedbound status, colitis. Morphine 2-4 mg available as needed, has received 1 dose of 2 mg with good effect. Home regimen of Neurontin 800 mg 3 times a day and baclofen has been continued. = Debility: Progressive. Worsen since acute hospitalization in November 2016. PT recommended once patient is clinically stable. Family inquiring regarding short-term rehabilitation vs PT at home with home health. * Case discussed with laboratory sampler Ila. * Palliative care contact information has been provided to patient and family. * Palliative care will continue to follow-up for further clarifications of goals of care as patient's clinical course continues to evolve. . Time Spent Total Floor Time (mins): 41 (Total time to include review medical records, physical exam, goals of care conversation with patient's family, case discussion with laboratory sampler.) >50% Counseling/Coord of Care: Yes Attestation To help prompt me to consider important information that might be impacting today's encounter and assessment, information from prior notes written by myself or my colleagues may have been "brought forward" into today's note. My signature on this note, however, is an attestation that I personally performed the exam, history, and/or decision-making noted today, and, unless otherwise indicated, the interactions with patient, family, and staff as well as the review of records all occurred today. I also attest that the listed assessment and stated plan reflect my best clinical judgment today based on the combination of historical information, prior notes, and today's exam/ interactions. When time spent is documented, it refers only to time spent today by the signer, or if indicated, combined time spent today by collaborating physician/nurse practitioner. Teri Carlin Mar 26, 2017 11:46
[2017-03-26] MEDS: levETIRAcetam 500 MG/5 ML UDC NG SCH (13:40)
[2017-03-26] MEDS: ACETAMINOPHEN 325 MG TAB PO PRN (13:42)
[2017-03-26 15:24] LABS: AUTOMATED NEUTROPHIL # 11.1 TH/MM3 (1.8-7.7); BASOPHIL # 0.1 TH/MM3 (0-0.2); BASOPHIL % 0.7 % (0.0-2.0); EOSINOPHIL % 0.3 % (0.0-4.0); HEMATOCRIT 36.3 % (35.0-46.0); HEMOGLOBIN 11.7 GM/DL (11.6-15.3); LYMPH % 3.8 % (9.0-44.0); LYMPHOCYTE # 0.5 TH/MM3 (1.0-4.8); MEAN CELL VOLUME 81.8 FL (80.0-100.0); MEAN CORPUSCULAR HEMOGLOBIN 26.4 PG (27.0-34.0); MEAN CORPUSCULAR HGB CONC 32.2 % (32.0-36.0); MEAN PLATELET VOLUME 8.7 FL (7.0-11.0); MONO % 5.6 % (0.0-8.0); MONOCYTE # 0.7 TH/MM3 (0-0.9); NEUT % 89.6 % (16.0-70.0); PLATELET COUNT 161 TH/MM3 (150-450); RED BLOOD COUNT 4.44 MIL/MM3 (4.00-5.30); RED CELL DISTRIBUTION WIDTH 16.5 % (11.6-17.2); WHITE BLOOD COUNT 12.3 TH/MM3 (4.0-11.0)
[2017-03-26 15:58] LABS: ALBUMIN 1.7 GM/DL (3.4-5.0); BICARBONATE 13.9 MEQ/L (21.0-32.0); CALCIUM 7.4 MG/DL (8.5-10.1); CALCIUM-PROTEIN CORRECTED 8.6 MG/DL (8.5-10.1); CREATININE 0.35 MG/DL (0.50-1.00); MAGNESIUM 1.3 MG/DL (1.5-2.5); PHOSPHORUS 0.9 MG/DL (2.5-4.9); TOTAL BILIRUBIN ADULT 0.2 MG/DL (0.2-1.0)
--- NOTE | 2017-03-26 16:09 | HHI.PR ---
Subjective Remarks History from patient, her fianc at the bedside, ER physician communication, and review of medical records. Patient is awake, alert, oriented at the time of my exam. She is actually able to give better history than her fianc at the bedside. She is known to me from her prior hospitalization date on December 06, 2016. At that time, she presented with acute encephalopathy and family at that time gave her a history saying that patient always gets encephalopathic as this evening for a simple UTI. They have also given me history with her recurrent C. difficile at that time for which stool studies were sent and found to be positive for C. difficile. She was evaluated by infectious disease specialist while in hospital. Because her encephalopathy was so severe at that time, there was also thought of encephalitis/meningitis. However all workup was negative. CSF WBC was 15. Her C. difficile was positive. She was hospitalized at that time from December 06, 2016 to December 19, 2016 This time, the family stated that because they know she gets confused very easily with infections, they decided to bring her here early. They realize that she was getting somewhat confused at home. Patient at the time of exam by the ER physician and myself, patient was entirely awake, alert, oriented. She reports that she did have fevers at home which was 12. She denies any cough. However she reports some rattling in her chest. She reports of frequent urination and feeling off a lot of pressure in her bladder area. And when she goes to the bathroom usually, she would have difficulty going because of the pressure. She herself denies any diarrhea at the time of my interview. She reports that she finished her treatment for C. difficile with medications around January. Patient denies any sores or ulcers. No reports are invasive lines. 1-25Persisting problem of encephalopathy through today. Patient has no specific complaints of pain, says she isn't pain everywhere. Symptoms of expressive aphasia, patient has had stroke in the past. Family expresses that whenever she gets infections she is often like this but she's had a stroke in the past with infection also. Patient can express no specific complaints. 1-26 She does not yet to baseline. Improvement in encephalopathy is seen today. CT imaging shows no evidence of abscess. Colitis is present. CT of brain shows no evidence of acute CVA. 1-27 patient is not taking in anything orally. Not wanting to take her pills. Discussed with mother at bedside who is not the power of completion supervisor she states it' s the patient's daughter. Patient is a DO NOT RESUSCITATE hospice might be a consideration versus placing a feeding tube and aggressive treatment Continue on IV fluids have discussed with patient and family and RNs and case management Consult hospice for information 03-25 LABS STILL PENDING MAYBE A LITTLE MORE ALERT TODAY WITH FLUIDS DW FAMILY AT BEDSIDE-WILL NEED A FEEDING TUBE AND TUBE FEEDS FIANCE AT BEDSIDE- DW HIM = 03/26. Patient continues noninteractive. Does not wake to verbal stimuli, minimally to tactile stimuli. Discussed with mother at bedside. Discussed with infectious disease. Continue treatment. Follow up EEG, neurology recommendations. Objective Vital Signs Date Time Temp Pulse Resp B/P (MAP) Pulse Ox O2 Delivery O2 Flow Rate FiO2 03/26/17 12:39 102.0 104 18 131/69 (89) 99 03/26/17 08:48 99.8 133 18 170/86 (114) 98 03/26/17 04:00 99.0 114 20 111/53 (72) 98 03/26/17 04:00 108 03/26/17 00:00 99 03/26/17 00:00 100.2 110 20 143/79 (100) 97 03/25/17 20:00 Room Air 03/25/17 20:00 123 03/25/17 20:00 102.5 134 20 149/55 (86) 97 03/25/17 16:30 99.9 I/O 03/25/17 03/25/17 03/25/17 03/26/17 03/26/17 03/26/17 07:00 15:00 23:00 07:00 15:00 23:00 Intake Total 0 ml 0 ml 1280 ml Balance 0 ml 0 ml 1280 ml Intake Oral 0 ml 0 ml IV Total 1280 ml # Voids 2 5 # Bowel Movements 1 1 Result Diagram: 03/26/17 1422 03/25/17 1338 Objective Remarks GENERAL: Lying in bed. Appears comfortable. Somewhat. Does not respond to verbal, and minimally to tactile stimuli. SKIN: Warm and dry. HEAD: Normocephalic. EYES: No scleral icterus. No injection or drainage. NECK: Supple, trachea midline. No JVD. CARDIOVASCULAR: Regular rate and rhythm without murmurs, gallops, or rubs. RESPIRATORY: Breath sounds equal bilaterally. No accessory muscle use. GASTROINTESTINAL: Abdomen soft, non-tender, nondistended. MUSCULOSKELETAL: No cyanosis, or edema. BACK: Nontender without obvious deformity. No CVA tenderness. A/P Assessment and Plan 03/26/17======== //Sepsis. Tachycardia, fevers. Follow-up anaerobic gram-positive cocci from blood cultures. Repeat blood cultures negative to date. Continue IV antibiotics as per ID recommendations. //Encephalopathy. Discontinue gabapentin. EEG pending. Hold gabapentin. Neuro consult pending. //Hypophosphatemia. 1.2 yesterday. Replaced. Continue to monitor //Hypomagnesemia. 1.2 yesterday. Replaced. Continue to monitor //Not tolerating by mouth intake. Continue NG tube, tube feeds ordered. //Diabetes mellitus. Hyperglycemia in the mid 200s. Start sliding scale, scheduled Levemir. //Metabolic acidosis. Carbon dioxide 13.9. Check ABG. //Hyponatremia. Expect to improve off of half normal saline. //Suspected adrenal insufficiency. chronic steroids. Order stress dose steroids. 46-year-old female admitted secondary to sepsis with pneumonia. Encephalopathy present admitted. Encephalopathy improving. Has infection improving. Patient stable for transfer out of ICU. Continue cefepime and azithromycin. Continue to monitor blood work, labs ordered. //Right middle lobe pneumonia //Sepsis //Baseline Immunocompromised state Continue cefepime Continue ORAL FLAGYL ORAL VANCO Workup expanded to include CT of abdomen and pelvis, to screen for infection-- COLITIS ON CAT SCAN Continue oxygen as needed //Hypertension Continue baseline treatment Follow blood pressures Adjust treatments as needed //pericardial effusion history pericardial tamponade- s/p window Follow clinically //RA //Osteoporosis //immunocompromised No change to baseline treatment //History of CVA //Acute Expressive aphasia //Chronic left-sided weakness May be contributory to encephalopathy Evaluate for acute CVA or brain bleed with head CT- NEGATIVE PER CT //Seizure disorder Continue Keppra //Diabetes mellitus type 2 Follow blood sugars Insulin sliding scale Diabetic diet //Hypokalemia Will replace via IV //DVT prophylaxis Lovenox. Discharge Planning Continued inpatient treatment for sepsis. palliative care following. Lucas Espino MD Mar 26, 2017 16:09
[2017-03-26] MEDS ORDERED: HYDROCORTISONE SOD SUCCINATE 100 MG VIAL IV PUSH ONE (16:30)
[2017-03-26] MEDS ORDERED: GLUCAGON 1 MG/ML VIAL OTHER PRN (16:30)
[2017-03-26] MEDS ORDERED: DEXTROSE 50% IN WATER 50 ML VIAL(D50) IV PUSH PRN (16:30)
[2017-03-26] MEDS ORDERED: MAGNESIUM SULFATE 1 GM PREMIX 100 ML IV SCH (17:00)
[2017-03-26] MEDS ORDERED: PHARMACY ORDERED LAB ONE (17:45)
[2017-03-26] MEDS ORDERED: SODIUM PHOSPHATE INJ 15 MMOL in SODIUM CHLORIDE 0.9% INJ 150 ML IV ONE ×2 (18:00→23:00)
--- NOTE | 2017-03-26 18:26 | PD.RAD ---
Post Procedure Progress Note Pre Procedure Diagnosis: (1) Unspecified psychosis Post Procedure Diagnosis: (1) Unspecified psychosis Procedure Date: Mar 26, 2017 Supervising Radiologist: Mukul Gary JR Proceduralist/Assist: Reji London RT(R), Jonny Blood RT(R) Anesthesia: Local Plan of Activity Patient to Unit: Nursing Unit Patient Condition: Good See PACS Report for procedural detail/treatment Spinal Procedure Lumbar Puncture L3-L4 Fluid Removal (CCs): 10 Fluid Description: Clear Puncture Time: 18:15 Jr. Abdirahman,Mukul Montiel MD Mar 26, 2017 18:26
[2017-03-26] MEDS: SODIUM BICARBONATE IV SCH (19:00)
[2017-03-26] MEDS: POTASSIUM CHLORIDE IV SCH (19:00)
[2017-03-26] MEDS ORDERED: POTASSIUM CHLORIDE 25 MEQ EFFERVESCENT TAB NG ONE (19:00)
[2017-03-26] MEDS: [UNRECOGNIZED DRUG - OTHER] IV SCH (19:00)
[2017-03-26 19:08] LABS: TOTAL PROTEIN,CSF 135.6 MG/DL (15.0-45.0)
[2017-03-26 19:48] LABS: CSF LYMPHOCYTES 30 %; CSF MONOCYTES 17 %; CSF NEUTROPHILS 15 %; CSF PLASMA CELLS 2 %
[2017-03-26 19:49] LABS: CSF HISTIOCYTES 36 %
[2017-03-26] MEDS ORDERED: GADODIAMIDE PF 287 MG/ML 5 ML VIAL (for RAD MRI) IVCONTRAST ONE (19:55)
--- NOTE | 2017-03-26 19:55 | RADRPT ---
EXAM DATE/TIME: 03/26/2017 18:55 This report includes an Addendum and supersedes previous reports for this exam. [facility] COMPARISON: MRI BRAIN W & W/O CONTRAST, December 11, 2016, 18:08. INDICATIONS : CVA. CONTRAST: 11 cc Omniscan (gadodiamide) IV MEDICAL HISTORY : Diabetes mellitus type 2. Seizures. Pericardial effusion, RA, Encephalpathy, Pericardial tamponade. SURGICAL HISTORY : Fusion, cervical. Pericardial window, Bilateral hand/feet sx, Left hip replacement. ENCOUNTER: Initial ACUITY: 1 day PAIN SCORE: Nonresponsive. LOCATION: Bilateral cranial TECHNIQUE: Multiplanar, multisequence MRI of the brain was performed both prior to and following the administrat ion of paramagnetic contrast. FINDINGS: CEREBRUM: The ventricles are normal for age. No evidence of midline shift, mass lesion, hemorrhage or acute in farction. No extraaxial fluid collections are seen. The pituitary gland and suprasellar cistern are normal in configuration. WHITE MATTER: Extensive white matter disease is again noted bilaterally but is nonspecific. POSTERIOR FOSSA: Diffuse pontine signal abnormality is also again noted in unchanged compared to previous examination November 2016. Stable old infarct involving the left cerebral hemisphere. The 4th ventricle is midlin e. The cerebellopontine angle is unremarkable. The cerebellar tonsils are normal in position. DIFFUSION IMAGING: No focal areas of restricted diffusion are seen. No evidence of acute infarction. EXTRACRANIAL: The visualized portions of the orbits and paranasal sinuses are unremarkable. POST-CONTRAST: No abnormal areas of parenchymal or dural enhancement. No evidence of blood-brain barrier breakdown. CONCLUSION: 1. No acute infarct, acute hemorrhage, midline shift or extra-axial fluid collections. 2. Severe diffuse periventricular white matter signal abnormalities and diffuse pontine signal abnorm ality which is nonspecific but unchanged compared to November 2016. 3. No abnormal enhancing lesion noted. 4. 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 Jonny Fine MD on March 26, 2017 at 19:47 Board Certified Radiologist. This report was verified electronically. ADDENDUM: A focal cluster of subcentimeter restricted diffusion seen in the left parietal lobe white matter, se tres 7 image 41, compatible with a localized acute or subacute infarct. Marcus Devi MD on March 28, 2017 at 7:13 Board Certified Radiologist. This report was verified electronically.
[2017-03-26 19:56] LABS: CSF HISTIOCYTES 30 %; CSF LYMPHOCYTES 30 %; CSF MONOCYTES 20 %; CSF NEUTROPHILS 20 %
[2017-03-26 19:59] LABS: RBC TUBE #1 7 /MM3; SUPERNATE COLOR TUBE #1 CLEAR (CLEAR); VOLUME TUBE # 1 2.3 ML; WBC TUBE #1 36 /MM3 (0-10)
[2017-03-26 20:00] LABS: RBC TUBE #4 7 /MM3; WBC TUBE #4 41 /MM3 (0-10)
[2017-03-26 20:01] LABS: SUPERNATE COLOR TUBE #1 CLEAR (CLEAR); VOLUME TUBE # 1 2.3 ML
[2017-03-26 20:02] LABS: RBC TUBE #1 7 /MM3; RBC TUBE #4 7 /MM3; WBC TUBE #1 36 /MM3 (0-10); WBC TUBE #4 41 /MM3 (0-10)
--- NOTE | 2017-03-26 20:08 | MB ---
cc: MARLON NUNEZ DATE OF CONSULTATION 03/26/2017 HISTORY OF THE PRESENT ILLNESS A 46-year-old woman I had seen back in November of 2016 with a history of rheumatoid arthritis, MS. She had confusion at that time. She has confusion with UTIs. History of diabetes, hypertension, questionable MS, C. Difficile, rheumatoid arthritis. She was screaming and yelling. nevertheless, she had an LP with an elevated protein and workup otherwise was basically negative. Her infection was treated. She seemed to get better. I did give her some high dose steroids at that time. She had some sedatives and those were stopped and she seemed to wake up and do well. Nevertheless she got back to being able to ride a scooter and was able to talk although has some baseline confusion, sometimes worse than others and then she developed a fever and has been in the hospital since March 21 with pneumonia and sepsis. She came in with altered mental status. She was not answering appropriately. Then on Sunday night, this past Sunday night three days ago, she actually had some agitation and was confused and yelling out but talking. She said the day before she did talk to her mother and say hi mom. I am asked to see her for mental status changes. She since Sunday has become less responsive. MEDICATIONS She was on at home: 1. Prednisone twice a day. 2. Metoprolol. 3. Plavix. 4. Cephalexin. 5. She has been on oxycodone at home. 6. Keppra 500 q. 12. 7. Leflunomide 20 mg a day. 8. Citalopram. 9. Gabapentin. 10. Baclofen 10 q.8h. 11. Hydroxyzine. 12. Ditropan. Current medications: 1. Prednisone 10 twice a day. 2. Hydrocortisone. 3. Keppra 500 q.12h. 4. Aztreonam. 5. Morphine. She has gotten on the looks like maybe 6 milligrams total. 6. Citalopram 20 milligrams daily. 7. Lopressor 50 milligrams daily. 8. Vasotec. 9. Clonidine. 10. Baclofen 10 q.8h as needed spasms. 11. Pepcid. 12. She got a dose of vancomycin. 13. On the she got an oxycodone. SOCIAL HISTORY Not a smoker or drinker. No drug use. FAMILY HISTORY Positive for breast cancer in her father. Rheumatoid arthritis. ALLERGIES SHE IS ALLERGIC TO HYDROMORPHONE AND METFORMIN. PHYSICAL EXAMINATION VITAL SIGNS: On exam she has been running fevers, highest fever 102 today but running fevers the last several days. NECK: There were no carotid bruits. HEART: Regular rhythm. I did not detect a murmur. Her neck is very rigid but always is and fused from the rheumatoid arthritis. NEUROLOGIC: The pupils are equal. She will not open her eyes. I hold them open but she will not follow any commands. She grunts with pain when I move her left leg, not so much on the right. The toes are mute. She has flaccid bilateral upper extremities. Severely obtunded. LABORATORY DATA White count 12.3, hematocrit is 36, platelet count 161. Her sed rate last time she was in the hospital was 47. Her RPR has been negative. Lyme titers were negative last time. Hepatitis screen was negative. HIV negative. Her herpes PCRs were negative. Varicella, zoster DNA, PCR from the CSF was negative. Rheumatoid factor was only 16. AARON was negative. She had IgG index was normal. rate was elevated at 5.4. Oligoclonal bands, she had bands in the CSF that were also present in the serum. Myelin basic protein was normal. Encephalitis numbers were negative. She was C diff positive. Cryptococcal antigen negative. virus negative. Total protein was 170. Glucose was 53. She had 15 white cells, 68% monocytes in the CSF. Urine drug screen was negative in November. UA was negative here. Basic metabolic profile yesterday her sodium was 131. GFR 124, glucose 263. Phosphorus and magnesium were low at 1.2 and 1.4, respectively. Liver function tests normal. Ammonia level last time was 37. B12 was normal. Thyroid was normal on this admission. CBC is essentially unremarkable. IMPRESSION She certainly is obtunded. I am not sure if it is from the medications or not but we will stop all sedating meds. We will check an EEG and MRI. I would recommend with the fevers check an LP although she has had mental status change with infections before but she has been on chronic steroids. MD SANDRA Keller/KK /3:56 PM /7:14 PM
[2017-03-26] MEDS: INSULIN ASPART SUPPLEMENTAL SCALE SQ SCH (21:00)
[2017-03-26] MEDS: MAGNESIUM SULFATE 1 GM PREMIX 100 ML IV SCH ×2 (21:49→23:01)
[2017-03-26] MEDS ORDERED: SODIUM PHOSPHATE IV ONE (23:00)
[2017-03-26] MEDS ORDERED: SODIUM CHLOR 0.9% IV ONE (23:00)
[2017-03-27] VITALS (9 sets, daily range): BP systolic 139–168; BP diastolic 74–79; PULSE 85–115; RESP 18–20; TEMP 97.6–99.4; O2SAT 96–100
[2017-03-27] MEDS: predniSONE 5 MG TAB NG SCH ×3 (00:16→22:37)
[2017-03-27] MEDS: levETIRAcetam 500 MG/5 ML UDC NG SCH ×3 (00:16→22:37)
[2017-03-27] MEDS: FAMOTIDINE 20 MG TAB PO SCH ×3 (00:17→22:37)
[2017-03-27] MEDS: INSULIN DETEMIR 100 UNITS/ML VIAL SQ SCH ×3 (00:17→21:00)
[2017-03-27] MEDS: METOPROLOL TARTRATE 50 MG TAB PO SCH ×3 (00:17→22:37)
[2017-03-27] MEDS: metroNIDAZOLE 500 MG INJ 100 ML IV SCH ×4 (00:18→22:36)
[2017-03-27] MEDS: SODIUM CHLORIDE 0.9% FLUSH 10 ML FLUSH IV FLUSH SCH ×3 (00:19→21:00)
[2017-03-27] MEDS: FREE WATER PO SCH ×7 (00:30→22:00)
--- NOTE | 2017-03-27 05:54 | MG ---
cc: POLLY WILKERSON MD Lab No: [id number] Date: 03/26/2017 Age: Sex: F Race: DATE OF 1970 HISTORY A 46-year-old with history of mental status changes. FINDINGS Alternating pattern of 4-5 Hz theta activity, 20-50 microvolts with 1-2 Hz suppressed delta activity occurring, variable frequencies, pseudo burst suppression type pattern at times. Slight phase reversal type formation T3 epoch 112. Mild EEG variability, some reactivity towards the end of the recording. Frontal sharp transients occurring at that time. Limited driving with photic stimulation. Single EKG showing sinus rhythm. INTERPRETATION Moderate encephalopathy with episodes of pseudo-periodic burst suppression. Clinical correlation. Polly Wilkerson MD MG/SSB /8:43 PM /5:48 AM
[2017-03-27] MEDS: AZTREONAM INJ 2,000 MG in SODIUM CHLORIDE 0.9% INJ 100 ML IV SCH ×3 (05:57→22:36)
--- NOTE | 2017-03-27 07:29 | HHI.PR ---
Subjective Remarks sr fever on and off Objective Vital Signs Date Time Temp Pulse Resp B/P (MAP) Pulse Ox O2 Delivery O2 Flow Rate FiO2 03/27/17 04:00 98.1 97 20 142/79 (100) 100 03/27/17 00:00 99.0 91 20 139/77 (97) 98 03/26/17 20:00 Room Air 03/26/17 20:00 98.9 112 21 152/98 (116) 100 03/26/17 16:51 Room Air 03/26/17 16:00 101.5 102 20 112/59 (76) 96 03/26/17 16:00 94 03/26/17 12:39 102.0 104 18 131/69 (89) 99 03/26/17 12:00 100 03/26/17 08:48 99.8 133 18 170/86 (114) 98 03/26/17 08:00 135 I/O 03/26/17 03/26/17 03/26/17 03/27/17 03/27/17 03/27/17 07:00 15:00 23:00 07:00 15:00 23:00 Intake Total 1280 ml 0 ml Output Total 4 ml Balance 1280 ml -4 ml Intake Oral 0 ml IV Total 1280 ml Output Urine Total 4 ml # Voids 100 # Bowel Movements 3 Result Diagram: 03/26/17 1422 03/26/17 1422 Objective Remarks awake alert c vff moves all well nl speech Assessment and Plan Assessment and Plan imp much better clinicall has on mri tiny left looks like subacute cva and enhancing left cbllr older cva i think we should do tresa LP 41 wbc prot inc similar to LP in 12/12 eeg ? triphasics will have to review i doubt csf indicates acute infxt as had neg megwu last time not classic mri for ms and the changes in bridget and wm changes perventricular and basal ganglia changes a bit worse than november 2016 at some point i think she needs to get an opinion on what is likley chronic csf changes at [facility] or [place] much better clinically so will not add high dose steroids right now unless declines clinically limit narcotics no sedatives Rg Torrez MD Mar 27, 2017 07:29
[2017-03-27] MEDS: INSULIN ASPART SUPPLEMENTAL SCALE SQ SCH ×4 (08:32→21:00)
[2017-03-27] MEDS: LACTOBACILLUS ACIDOPHILUS TAB PO SCH ×3 (08:33→17:59)
--- NOTE | 2017-03-27 09:53 | RADRPT ---
EXAM DATE/TIME: 03/26/2017 19:11 [place] COMPARISON: No previous studies available for comparison. INDICATIONS : Patient presents with altered mental status in need of lumbar puncture to rule out encephalitis. MEDICAL HISTORY : DM HTN Pericardial effusion Pericardial tamponade-s/p window RA, immunocompromised CVA Seizure disorder Osteoporosis SURGICAL HISTORY : Cervical fusion Pericardial Window Lumbar surgery Bilateral hands orif Bilateral feet orif Left hip replacement ENCOUNTER: Initial ACUITY: 1 week PAIN SCORE: Nonresponsive. LUMBAR PUNCTURE TIME: 1815 hours FLUORO TIME: 0.6 minutes IMAGE SERIES: ACCESS LEVEL: L3-4 FLUID: 9.5 cc of clear CSF was collected and sent to the laboratory for analysis. PROCEDURE : 1. Fluoroscopic guided lumbar puncture. The risks, benefits and alternatives to the procedure were explained and verbal and written consent w as obtained. The site was prepped in sterile fashion. Full sterile technique was used, including ca p, mask, sterile gloves and gown and a large sterile sheet. Hand hygiene and 2% chlorhexidine and/or betadine/alcohol prep was utilized per protocol for cutaneous antisepsis. The skin and subcutaneous tissues were infiltrated with local anesthetic solution. With fluoroscopic guidance the lumbar thecal sac was punctured at the level above. The fluid describ ed above was removed without difficulty. The patient tolerated the procedure well and there were no complications. CONCLUSION: Uncomplicated fluoroscopically guided lumbar puncture. Mukul Gary Jr., MD on March 27, 2017 at 9:50 Board Certified Radiologist. This report was verified electronically.
--- NOTE | 2017-03-27 11:05 | PD.CONS ---
HPI Consult Requested By Primary Care Physician Mario Alberto Danielson Jr, DO History of Present Illness 46-year-old lady with past medical history significant for rheumatoid arthritis , multiple sclerosis, on chronic steroids, diabetes, hypertension, C. Difficile , cervical fusion, UTI's consulted for TOMÁS in the setting mental status change and ?CVA even though negative brain scans (MRI and Head CT). She was initially admitted on March 21 with pneumonia and sepsis. She is DNR. Review of Systems Consitutional: DENIES: Fatigue, Fever, Chills, Weight gain, Weight loss Eyes: DENIES: Amaurosis Fugax, Change in vision HEENT: DENIES: Lightheadedness, Change in hearing Respiratory: DENIES: See HPI, Cough, Snoring, Shortness of breath, Wheezing, Sputum production Cardiovascular: DENIES: See HPI, Chest pain, Palpitations, Syncope, Tachycardia Gastrointestinal: DENIES: Nausea, Vomiting, Change in bowel habits, Reflux, Bloody stools, Melena Genitourinary: DENIES: Urinary incontinence, Difficulty voiding Integumentary: DENIES: Rash Neurologic: DENIES: Tingling or numbness, Memory problems, Poor Balance, Stroke symptoms Musculoskeletal: DENIES: Joint pain, Muscle pain, Limited range of motion, Back pain Psychiatric: DENIES: Anxiety, Depression, Sleep disturbances Hematologic: DENIES: Bruising tendencies, Bleeding tendencies Endocrine: DENIES: Weight gain, Weight loss, Thyroid disease Past Family Social History Allergies: Coded Allergies: hydromorphone (Verified Allergy, Unknown, 03/21/17) metformin (Verified Allergy, Unknown, 03/21/17) Past Medical History DM HTN MS RA, immunocompromised Questionable CHF Osteoporosis Past Surgical History Cervical fusion 2007 Reported Medications Reported Meds & Active Scripts Active Oxycodone-Acetaminophen 10-325 mg Tab 1 Tab PO Q6H PRN Acidophilus/l-Sporogenes (Lactobacillus Acidophilus) 35 Million Cell-25 Million Cell Tab 1 Tab PO TID Keppra (Levetiracetam) 500 Mg Tab 500 Mg PO Q12HR Reported Lantus Inj (Insulin Glargine) 1,000 Unit/10 Ml Vial 40 Units SQ HS Leflunomide 20 Mg Tab 20 Mg PO DAILY Metoprolol Tartrate 50 Mg Tab 50 Mg PO BID Citalopram (Citalopram Hydrobromide) 20 Mg Tab 20 Mg PO DAILY Gabapentin 800 Mg Tab 800 Mg PO TID Baclofen 10 Mg Tab 10 Mg PO Q8HR PRN Hydroxyzine HCl 50 Mg Tab 50 Mg PO BID PRN Ditropan (Oxybutynin Chloride) 5 Mg Tab 5 Mg PO Q12HR PRN Active Ordered Medications Current Medications Medications (Trade) Dose Ordered Sig/Fuentes Route Start Time Stop Time Status Last Admin (NS Flush) 2 ml UNSCH PRN IV FLUSH 03/21/17 13:00 03/23/17 08:13 (NS Flush) 2 ml BID IV FLUSH 03/21/17 21:00 03/27/17 00:19 (Narcan Inj) 0.4 mg UNSCH PRN IV PUSH 03/21/17 13:00 (Lactinex) 1 tab TID PO 03/21/17 18:00 03/27/17 08:33 (Pepcid) 20 mg Q12HR PO 03/21/17 21:00 03/27/17 08:33 (VANCOMYCIN for oral use only) 500 mg QID PO 03/21/17 18:30 Future Hold 03/23/17 22:34 (Free Water) VOLUME OF WATER: 200 ML... Q4H PO 03/21/17 18:00 03/27/17 08:34 (Tylenol) 650 mg Q4H PRN PO 03/21/17 19:45 03/26/17 13:42 (Zofran Inj) 4 mg Q6HR PRN IV PUSH 03/22/17 10:45 03/22/17 13:00 (Lopressor) 50 mg Q12HR PO 03/24/17 09:00 03/27/17 08:33 (Vasotec Inj) 1.25 mg Q6H PRN IV PUSH 03/23/17 13:45 (Catapres) 0.1 mg Q6H PRN PO 03/23/17 13:45 Metronidazole 100 ml @ 100 mls/hr Q8H IV 03/25/17 04:00 03/27/17 04:34 (Keppra Liq) 500 mg Q12H NG 03/25/17 23:00 03/27/17 00:16 (Deltasone) 10 mg BID NG 03/26/17 21:00 03/27/17 08:33 (Levemir Inj) 8 units Q12HR SQ 03/26/17 21:00 03/27/17 08:33 (NovoLOG SUPPLEMENTAL SCALE) 1 ACHS SLIDING SCALE SQ 03/26/17 17:00 03/27/17 08:32 (D50w (Vial) Inj) 50 ml UNSCH PRN IV PUSH 03/26/17 16:30 (Glucagon Inj) 1 mg UNSCH PRN OTHER 03/26/17 16:30 Sodium Bicarbonate 150 meq/Potassium Chloride 20 meq/ Sterile Water 1,010 ml @ 100 mls/hr Q10H6M IV 03/26/17 19:00 03/26/17 19:00 Aztreonam 2000 mg/ Sodium Chloride 100 ml @ 200 mls/hr Q8H IV 03/26/17 20:00 03/27/17 05:57 Family History Positive for breast cancer in her father. Rheumatoid arthritis. Social History Not a smoker or drinker. No drug use. Physical Exam Vital Signs Vital Signs Date Time Temp Pulse Resp B/P (MAP) Pulse Ox O2 Delivery O2 Flow Rate FiO2 03/27/17 09:12 99.4 112 18 167/74 (105) 100 03/27/17 04:00 98 03/27/17 04:00 98.1 97 20 142/79 (100) 100 03/27/17 00:00 104 03/27/17 00:00 99.0 91 20 139/77 (97) 98 03/26/17 20:00 99 03/26/17 20:00 Room Air 03/26/17 20:00 98.9 112 21 152/98 (116) 100 03/26/17 16:51 Room Air 03/26/17 16:00 101.5 102 20 112/59 (76) 96 03/26/17 16:00 94 03/26/17 12:39 102.0 104 18 131/69 (89) 99 03/26/17 12:00 100 Laboratory Laboratory Tests Test 03/26/17 14:22 03/26/17 16:20 03/26/17 18:15 White Blood Count 12.3 Red Blood Count 4.44 Hemoglobin 11.7 Hematocrit 36.3 Mean Corpuscular Volume 81.8 Mean Corpuscular Hemoglobin 26.4 Mean Corpuscular Hemoglobin Concent 32.2 Red Cell Distribution Width 16.5 Platelet Count 161 Mean Platelet Volume 8.7 Neutrophils (%) (Auto) 89.6 Lymphocytes (%) (Auto) 3.8 Monocytes (%) (Auto) 5.6 Eosinophils (%) (Auto) 0.3 Basophils (%) (Auto) 0.7 Neutrophils # (Auto) 11.1 Lymphocytes # (Auto) 0.5 Monocytes # (Auto) 0.7 Eosinophils # (Auto) 0.0 Basophils # (Auto) 0.1 CBC Comment DIFF FINAL Differential Comment Hematology Comments Blood Urea Nitrogen 7 Creatinine 0.35 Random Glucose 272 Total Protein 5.0 Albumin 1.7 Calcium Level 7.4 Phosphorus Level 0.9 Magnesium Level 1.3 Alkaline Phosphatase 106 Aspartate Amino Transf (AST/SGOT) 11 Alanine Aminotransferase (ALT/SGPT) 11 Total Bilirubin 0.2 Sodium Level 131 Potassium Level 3.7 Chloride Level 105 Carbon Dioxide Level 13.9 Anion Gap 12 Estimat Glomerular Filtration Rate 200 Protein Corrected Calcium 8.6 Blood Gas Puncture Site RT RADIAL Blood Gas Patient Temperature 98.6 Blood Gas HCO3 14 Blood Gas Base Excess -11.3 Blood Gas Oxygen Saturation 94 Arterial Blood pH 7.33 Arterial Blood Partial Pressure CO2 26 Arterial Blood Partial Pressure O2 84 Arterial Blood Oxygen Content 14.2 Arterial Blood Carboxyhemoglobin 1.0 Arterial Blood Methemoglobin 1.3 Blood Gas Hemoglobin 10.7 Oxygen Delivery Device ROOM AIR CSF Volume (Tube 1) 2.3 CSF Supernatant Color (tube 1) CLEAR CSF Gross Blood (Tube 1) 0 CSF WBC (Tube 1) 36 CSF RBC (Tube 1) 7 CSF Volume (Tube 2) 2.0 CSF Supernatant Color (tube 2) CLEAR CSF Gross Blood (Tube 2) 0 CSF Volume (Tube 3) 2.2 CSF Supernatant Color (tube 3) CLEAR CSF Gross Blood (Tube 3) 0 CSF Volume (Tube 4) 3.0 CSF Supernatant Color (tube 4) CLEAR CSF Gross Blood (Tube 4) 0 CSF WBC (Tube 4) 41 CSF RBC (Tube 4) 7 CSF Neutrophils 15 CSF Lymphocytes 30 CSF Monocytes 17 CSF Plasma Cells 2 CSF Histiocytes 36 CSF Glucose 168 CSF Total Protein 135.6 Date/Time Source Procedure Growth Status 03/25/17 13:38 Blood Peripheral Aerobic Blood Culture - Preliminary NO GROWTH IN 1 DAY Resulted 03/25/17 13:38 Blood Peripheral Anaerobic Blood Culture - Preliminary NO GROWTH IN 1 DAY Resulted 03/26/17 18:15 Cerebral Spinal Fluid Lumbar Puncture Fungal Smear - Final NO FUNGAL ELEMENTS SEEN. Resulted 03/26/17 18:15 Cerebral Spinal Fluid Lumbar Puncture Fungal Culture Pending Resulted 03/21/17 10:35 Nasal Aspirate Influenza Types A,B Antigen (YING) - Final NEGATIVE FOR FLU A AND B ANTIGEN.... Complete Result Diagram: 03/26/17 1422 03/26/17 1422 Imaging Last Impressions Brain MRI 03/26/17 1605 Signed Impressions: Service Date/Time: Sunday, March 26, 2017 18:55 - CONCLUSION: 1. No acute infarct, acute hemorrhage, midline shift or extra-axial fluid collections. 2. Severe diffuse periventricular white matter signal abnormalities and diffuse pontine signal abnormality which is nonspecific but unchanged compared to November 2016. 3. No abnormal enhancing lesion noted. 4. 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 Jonny Fine MD Lumbar Puncture Fluoroscopy 03/26/17 0000 Signed Impressions: Service Date/Time: Sunday, March 26, 2017 19:11 - CONCLUSION: Uncomplicated fluoroscopically guided lumbar puncture. Mukul Gary Jr., MD Abdomen X-Ray 03/25/17 0000 Signed Impressions: Service Date/Time: Saturday, March 25, 2017 11:26 - CONCLUSION: NG tube overlying the midline esophagus with the proximal port well above the level of the gastroesophageal junction. Recommend advancement approximately 10 cm. Aditi Rodriguez MD Head CT 03/22/17 0000 Signed Impressions: Service Date/Time: February 20:16 - CONCLUSION: No evidence of acute cardiopulmonary disease. Prominent chronic white matter changes for a patient this age. Marcus Devi MD Abdomen/Pelvis CT 03/22/17 0000 Signed Impressions: Service Date/Time: February 20:18 - CONCLUSION: 1. Mild, diffuse colitis in the proper clinical setting. This is nonspecific, presumably infectious or inflammatory. No abscess, perforation or obstruction. 2. Chronic/unchange findings otherwise including multiple nonacute fractures and a tiny nonobstructing stone of the right kidney. Marcus Devi MD Chest X-Ray 03/21/17 1006 Signed Impressions: Service Date/Time: Tuesday, March 21, 2017 10:16 - CONCLUSION: Right midlung and left basilar scarring versus minimal infiltrates. Garret Weber MD Toe X-Ray 03/21/17 0000 Signed Impressions: Service Date/Time: Tuesday, March 21, 2017 15:45 - CONCLUSION: 1. 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 2. Prior compression screw fixation of the first MTP. 3. No acute fracture. Jorden Nina MD Assessment and Plan Problem List: (1) Altered mental status ICD Codes: R41.82 - Altered mental status, unspecified Plan: 46 y/o F admitted with sepsis consulted for TOMÁS in the setting of acute ? CVA despite negative imaging studies; old infarct noted. Last echo done here 2016 unremarkable with preserved EF and no significant vasculopathies. Several issues to be consider before recommending TOMÁS: 1. No definite diagnosis of acute CVA on imaging studies 2. Cervical fusion surgery with limited range on motion on exam 3. Unremarkable recent ECHO, 4. She is a DNR. Given the later mention issues I don't think it would be appropriate to do TOMÁS as this time. If needed consider transthoracic echo with bubble study IF THIS WOULD CHANGE THE MANAGEMENT. Thank you for the opportunity to participate in the care of this patient Reconsult if necessary. (2) Rheumatoid arthritis ICD Codes: M06.9 - Rheumatoid arthritis, unspecified (3) Pneumonia ICD Codes: J18.9 - Pneumonia, unspecified organism Status: Acute (4) Acute metabolic encephalopathy ICD Codes: G93.41 - Metabolic encephalopathy Problem Qualifiers (1) Pneumonia: Qualified Codes: J18.1 - Lobar pneumonia, unspecified organism Joe Mcgill MD Mar 27, 2017 11:05
[2017-03-27] MEDS: POTASSIUM CHLORIDE IV SCH ×2 (12:13→15:41)
[2017-03-27] MEDS: [UNRECOGNIZED DRUG - OTHER] IV SCH ×2 (12:13→15:41)
[2017-03-27] MEDS: SODIUM BICARBONATE IV SCH ×2 (12:13→15:41)
--- NOTE | 2017-03-27 13:07 | HHI.HCPN ---
Reason for visit a. To assist with evaluation and management of symptoms including: Pain, debility. b. To assist medical decision maker(s) with: better understanding of current medical conditions; weighing benefits/burdens of medical treatment options; making medical treatment decisions. . Subjective/Interval History Palliative care follow-up for further clarification of goals of care, family support. Patient sitting in her room. She was awake, alert to self and situation. Intermittently confused but following commands. She remains afebrile, stable hemodynamically. Tolerating room air with oxygen saturation in the high 90s. Neurology, Dr. Vergara consulted 03/26. EEG revealing moderate encephalopathy. MRI of the brain revealing no acute process/CVA, old infarct involving the cerebellar hemisphere noted. Patient underwent lumbar puncture, pending culture. Cardiology, Dr. Mcgill consulted for consideration of TOMÁS in the setting of CVA. TOMÁS not recommended at this time, if needed may consider transthoracic echo with bubble study. Bedside conversation with patient's family to include daughter Karolina and mother Jemima. Medical update provided to include imaging results and recommendations. Reviewed once more likely trajectory of disease. Family understands that patient will continue to have repeated infections given general debility, multiple ongoing chronic comorbidities, autoimmune disorders and underlying immunocompromise. I have discussed possibility of further setbacks and progressive overall decline. Family asking appropriate questions regarding home health vs [facility] facility vs hospice services. Hospice philosophy and benefits reviewed at length. Family electing to continue current aggressive management short of no code, maximize patient's medical management. Family receptive to hospice should pt's condition does not improve or worsen. Family to consider hospice at home upon discharge. Case discussed with Dr. Amada Corey. . Family/friend interactions See interval note. . Advance Directives Living Will: Never completed Health Care Surrogate: Never completed Durable Power of Housekeeping Supervisor Hotel: Never completed Advance Directive Specifics Health Care Surrogate(s): No advance directives completed. As per [place] statute, healthcare proxy decision maker falls to patient's daughter Karolina Harris. . Significant change in goals: Goals remain aggressive short no code. . Objective Vital Signs Date Time Temp Pulse Resp B/P (MAP) Pulse Ox O2 Delivery O2 Flow Rate FiO2 03/27/17 12:21 97.9 85 18 163/78 (106) 100 03/27/17 09:12 99.4 112 18 167/74 (105) 100 1/30/18 04:00 98 03/27/17 04:00 98.1 97 20 142/79 (100) 100 03/27/17 00:00 104 03/27/17 00:00 99.0 91 20 139/77 (97) 98 03/26/17 20:00 99 03/26/17 20:00 Room Air 03/26/17 20:00 98.9 112 21 152/98 (116) 100 03/26/17 16:51 Room Air 03/26/17 16:00 101.5 102 20 112/59 (76) 96 03/26/17 16:00 94 Intake & Output 03/27/17 03/27/17 07:00 19:00 Intake Total 1405 ml Output Total 4 ml Balance 1401 ml Intake Oral 0 ml IV Total 1405 ml Output Urine Total 4 ml # Voids 100 # Bowel Movements 3 Physical Exam CONSTITUTIONAL/GENERAL: This is an adequately nourished patient in no acute distress. TUBES/LINES/DRAINS: PIV's. NG to left nare. SKIN: No jaundice, rashes, or lesions. Ecchymoses on upper and bilateral lower extremities. Skin temperature appropriate. Not diaphoretic. HEAD: Atraumatic. Normocephalic. EYES: Pupils equal and round and reactive. No scleral icterus. No injection or drainage. ENT: Hearing grossly normal. Nose without bleeding or purulent drainage. Moist oral mucosa. NECK: Trachea midline. Supple, nontender. Cushingoid appearing. CARDIOVASCULAR: Regular rate and rhythm without murmurs, gallops, or rubs. RESPIRATORY/CHEST: Symmetric, unlabored respirations. Clear to auscultation. Breath sounds equal bilaterally. No wheezes, rales, or rhonchi. GASTROINTESTINAL: Abdomen soft, non-tender, nondistended. No hepato-splenomegaly , or palpable masses. No guarding. Bowel sounds present. GENITOURINARY: Without palpable bladder distension. Ocampo catheter in place. MUSCULOSKELETAL: Extremities without clubbing, cyanosis, or edema. RA related deformities to bilateral upper and lower extremities. NEUROLOGICAL: Alert and oriented x self, place and situation. Intermittent confusion. Verbal, able to communicate needs. More interactive than yesterday. PSYCHIATRIC: Appears calm. . Diagnostic Tests Laboratory Laboratory Tests Test 03/24/17 15:41 03/25/17 13:38 03/26/17 14:22 03/26/17 16:20 White Blood Count 9.6 TH/MM3 (4.0-11.0) 12.1 TH/MM3 (4.0-11.0) 12.3 TH/MM3 (4.0-11.0) Red Blood Count 5.02 MIL/MM3 (4.00-5.30) 5.24 MIL/MM3 (4.00-5.30) 4.44 MIL/MM3 (4.00-5.30) Hemoglobin 13.7 GM/DL (11.6-15.3) 14.0 GM/DL (11.6-15.3) 11.7 GM/DL (11.6-15.3) Hematocrit 41.2 % (35.0-46.0) 43.4 % (35.0-46.0) 36.3 % (35.0-46.0) Mean Corpuscular Volume 82.1 FL (80.0-100.0) 82.7 FL (80.0-100.0) 81.8 FL (80.0-100.0) Mean Corpuscular Hemoglobin 27.2 PG (27.0-34.0) 26.6 PG (27.0-34.0) 26.4 PG (27.0-34.0) Mean Corpuscular Hemoglobin Concent 33.1 % (32.0-36.0) 32.2 % (32.0-36.0) 32.2 % (32.0-36.0) Red Cell Distribution Width 16.3 % (11.6-17.2) 16.6 % (11.6-17.2) 16.5 % (11.6-17.2) Platelet Count 199 TH/MM3 (150-450) 189 TH/MM3 (150-450) 161 TH/MM3 (150-450) Mean Platelet Volume 8.3 FL (7.0-11.0) 8.4 FL (7.0-11.0) 8.7 FL (7.0-11.0) Neutrophils (%) (Auto) 81.5 % (16.0-70.0) 89.6 % (16.0-70.0) Lymphocytes (%) (Auto) 8.1 % (9.0-44.0) 3.8 % (9.0-44.0) Monocytes (%) (Auto) 9.1 % (0.0-8.0) 5.6 % (0.0-8.0) Eosinophils (%) (Auto) 0.9 % (0.0-4.0) 0.3 % (0.0-4.0) Basophils (%) (Auto) 0.4 % (0.0-2.0) 0.7 % (0.0-2.0) Neutrophils # (Auto) 7.8 TH/MM3 (1.8-7.7) 11.1 TH/MM3 (1.8-7.7) Lymphocytes # (Auto) 0.8 TH/MM3 (1.0-4.8) 0.5 TH/MM3 (1.0-4.8) Monocytes # (Auto) 0.9 TH/MM3 (0-0.9) 0.7 TH/MM3 (0-0.9) Eosinophils # (Auto) 0.1 TH/MM3 (0-0.4) 0.0 TH/MM3 (0-0.4) Basophils # (Auto) 0.0 TH/MM3 (0-0.2) 0.1 TH/MM3 (0-0.2) CBC Comment DIFF FINAL AUTO DIFF DIFF FINAL Differential Comment FINAL DIFF MANUAL Blood Urea Nitrogen 4 MG/DL (7-18) 6 MG/DL (7-18) 7 MG/DL (7-18) Creatinine 0.27 MG/DL (0.50-1.00) 0.53 MG/DL (0.50-1.00) 0.35 MG/DL (0.50-1.00) Random Glucose 86 MG/DL (74-106) 263 MG/DL (74-106) 272 MG/DL (74-106) Total Protein 6.2 GM/DL (6.4-8.2) 6.2 GM/DL (6.4-8.2) 5.0 GM/DL (6.4-8.2) Albumin 2.7 GM/DL (3.4-5.0) 2.4 GM/DL (3.4-5.0) 1.7 GM/DL (3.4-5.0) Calcium Level 8.8 MG/DL (8.5-10.1) 8.3 MG/DL (8.5-10.1) 7.4 MG/DL (8.5-10.1) Alkaline Phosphatase 135 U/L (45-117) 134 U/L (45-117) 106 U/L (45-117) Aspartate Amino Transf (AST/SGOT) 16 U/L (15-37) 11 U/L (15-37) 11 U/L (15-37) Alanine Aminotransferase (ALT/SGPT) 22 U/L (10-53) 17 U/L (10-53) 11 U/L (10-53) Total Bilirubin 0.4 MG/DL (0.2-1.0) 0.4 MG/DL (0.2-1.0) 0.2 MG/DL (0.2-1.0) Sodium Level 131 MEQ/L (136-145) 131 MEQ/L (136-145) 131 MEQ/L (136-145) Potassium Level 3.2 MEQ/L (3.5-5.1) 3.3 MEQ/L (3.5-5.1) 3.7 MEQ/L (3.5-5.1) Chloride Level 101 MEQ/L (98-107) 102 MEQ/L (98-107) 105 MEQ/L (98-107) Carbon Dioxide Level 13.9 MEQ/L (21.0-32.0) 14.3 MEQ/L (21.0-32.0) 13.9 MEQ/L (21.0-32.0) Anion Gap 16 MEQ/L (5-15) 15 MEQ/L (5-15) 12 MEQ/L (5-15) Estimat Glomerular Filtration Rate 269 ML/MIN (>89) 124 ML/MIN (>89) 200 ML/MIN (>89) Differential Total Cells Counted 100 Neutrophils % (Manual) 72 % (16-70) Band Neutrophils % 13 % (0-6) Lymphocytes % 8 % (9-44) Monocytes % 6 % (0-8) Eosinophils % 1 % (0-4) Neutrophils # (Manual) 10.3 TH/MM3 (1.8-7.7) Platelet Estimate NORMAL (NORMAL) Platelet Morphology Comment NORMAL (NORMAL) Red Cell Morphology Comment NORMAL (NORMAL) Phosphorus Level 1.2 MG/DL (2.5-4.9) 0.9 MG/DL (2.5-4.9) Magnesium Level 1.4 MG/DL (1.5-2.5) 1.3 MG/DL (1.5-2.5) Hemoglobin A1c 10.0 % (4.3-6.0) Free Thyroxine 1.57 NG/DL (0.76-1.46) Thyroid Stimulating Hormone 3rd Gen 2.320 uIU/ML (0.358-3.740) Hematology Comments Protein Corrected Calcium 8.6 MG/DL (8.5-10.1) Blood Gas Puncture Site RT RADIAL Blood Gas Patient Temperature 98.6 Blood Gas HCO3 14 mmol/L (22-26) Blood Gas Base Excess -11.3 mmol/L (-2-2) Blood Gas Oxygen Saturation 94 % (90-100) Arterial Blood pH 7.33 (7.380-7.420) Arterial Blood Partial Pressure CO2 26 mmHg (38-42) Arterial Blood Partial Pressure O2 84 mmHg (61-120) Arterial Blood Oxygen Content 14.2 Vol % (12.0-20.0) Arterial Blood Carboxyhemoglobin 1.0 % (0-4) Arterial Blood Methemoglobin 1.3 % (0-2) Blood Gas Hemoglobin 10.7 G/DL (12.0-16.0) Oxygen Delivery Device ROOM AIR Test 03/26/17 18:15 CSF Volume (Tube 1) 2.3 ML CSF Supernatant Color (tube 1) CLEAR (CLEAR) CSF Gross Blood (Tube 1) 0 (0) CSF WBC (Tube 1) 36 /MM3 (0-10) CSF RBC (Tube 1) 7 /MM3 (NONE) CSF Volume (Tube 2) 2.0 ML CSF Supernatant Color (tube 2) CLEAR (CLEAR) CSF Gross Blood (Tube 2) 0 (0) CSF Volume (Tube 3) 2.2 ML CSF Supernatant Color (tube 3) CLEAR (CLEAR) CSF Gross Blood (Tube 3) 0 (0) CSF Volume (Tube 4) 3.0 ML CSF Supernatant Color (tube 4) CLEAR (CLEAR) CSF Gross Blood (Tube 4) 0 (0) CSF WBC (Tube 4) 41 /MM3 (0-10) CSF RBC (Tube 4) 7 /MM3 (NONE) CSF Neutrophils 15 % CSF Lymphocytes 30 % CSF Monocytes 17 % CSF Plasma Cells 2 % CSF Histiocytes 36 % CSF Glucose 168 MG/DL (40-80) CSF Total Protein 135.6 MG/DL (15.0-45.0) Result Diagram: 03/26/17 1422 03/26/17 1422 Microbiology Microbiology Date/Time Source Procedure Growth Status 03/25/17 13:38 Blood Peripheral Aerobic Blood Culture - Preliminary NO GROWTH IN 2 DAYS Resulted 03/25/17 13:38 Blood Peripheral Anaerobic Blood Culture - Preliminary NO GROWTH IN 2 DAYS Resulted 03/25/17 13:34 Blood Peripheral Aerobic Blood Culture - Preliminary NO GROWTH IN 2 DAYS Resulted 03/25/17 13:34 Blood Peripheral Anaerobic Blood Culture - Preliminary NO GROWTH IN 2 DAYS Resulted 03/26/17 18:15 Cerebral Spinal Fluid Lumbar Puncture Fungal Smear - Final NO FUNGAL ELEMENTS SEEN. Resulted 03/26/17 18:15 Cerebral Spinal Fluid Lumbar Puncture Fungal Culture Pending Resulted 03/26/17 18:15 Cerebral Spinal Fluid Lumbar Puncture Acid Fast Stain Pending Received 03/26/17 18:15 Cerebral Spinal Fluid Lumbar Puncture Mycobacterial Culture Pending Received 03/26/17 18:15 Cerebral Spinal Fluid Lumbar Puncture Gram Stain - Final Resulted 03/26/17 18:15 Cerebral Spinal Fluid Lumbar Puncture CSF Culture - Preliminary NO GROWTH IN 24 HOURS. Resulted Imaging Last 24 hours Impressions Brain MRI 03/26/17 1605 Signed Impressions: Service Date/Time: Sunday, March 26, 2017 18:55 - CONCLUSION: 1. No acute infarct, acute hemorrhage, midline shift or extra-axial fluid collections. 2. Severe diffuse periventricular white matter signal abnormalities and diffuse pontine signal abnormality which is nonspecific but unchanged compared to November 2016. 3. No abnormal enhancing lesion noted. 4. 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 Jonny Fine MD Procedures * 03/26/17 -LP . Assessment and Plan Disease Oriented Problem List: (1) Acute metabolic encephalopathy (2) Pneumonia (3) Sepsis (4) Rheumatoid arthritis (5) Physical deconditioning Symptom Scale: (1) Debility 0-10 Scale: Unable to quantify (2) Pain 0-10 Scale: Unable to quantify Pertinent Non-Medical Issues Psychosocial: Patient was born and raised in [place], lived in [place] for some time, she now lives in [place] with her fisamir and her daughter Karolina, age 22. Patient is . 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 Highest level of education is high school. Spiritual: [employer] heidi, welcomes fixed income manager support. Legal: No advance directives completed. Ethical issues impacting care: No ethical issues identified. . Important Contacts Karolina, daughter: [phone] Jemima, mother: [phone] mini Tim: [phone] . Prognosis Mrs. Harris is a 46-year-old female with a medical history significant for rheumatoid arthritis, diabetes mellitus, hypertension, seizure activity, OA and history of CVA. Patient currently admitted secondary to sepsis, pneumonia. Recent acute hospitalization in November 2016 secondary to encephalitis, bilateral lower lobe cellulitis and C. difficile colitis. Patient with progressive decline, worsen since November 2016. Patient at high risk for further complications, are aggressive decline and given general debility, multiple ongoing chronic comorbidities, autoimmune disorders and underlying immunocompromise state. . Code Status: No Code Plan * CODE STATUS: DNR/DNI. * HEALTHCARE DECISION-MAKING: Patient with limited participation and medical decision-making given clinical condition, encephalopathy. Likely to regain capacity as encephalopathy improves. No advance directives completed. As per [place] statute, healthcare proxy decision-making falls to patient's only daughter Karolina Harris. Daughter is supported by patient's mother Jemima and gabriel Tim. * GOALS OF CARE: Family electing to continue aggressive management short of NO code, maximize patient's medical management. Likely trajectory of disease reviewed with family. Family understands that patient will likely continue to have repeated infections given general debility, multiple ongoing chronic comorbidities, autoimmune disorders and underlying immunocompromise. I have discussed possibility of further setbacks, decline and recurrent hospitalizations in the future. Family receptive to palliative care f/u, ongoing goals of care conversation. * Hospice philosophy and benefits reviewed at length. Family receptive to hospice should patient's clinical condition worsen or does not improve. Family to consider hospice services upon discharge. * SYMPTOMS: = Pain, acute on chronic. Secondary to RA, chronic debility, bed/ chair bedbound status, colitis. Morphine, Neurontin and baclofen have been discontinued given altered mental status. = Debility: Progressive. Worsen since acute hospitalization in November 2016. PT recommended once patient is clinically stable. Family inquiring regarding short-term rehabilitation vs PT at home with home health. * Case discussed with Dr. Amada Corey. * Palliative care contact information has been provided to patient and family. * Palliative care will continue to follow-up for further clarifications of goals of care as patient's clinical course continues to evolve. . Time Spent Total Floor Time (mins): 34 (Total time to include review medical records, physical exam, goals of care conversation with patient's family, case discussion with infectious disease.) >50% Counseling/Coord of Care: Yes Attestation To help prompt me to consider important information that might be impacting today's encounter and assessment, information from prior notes written by myself or my colleagues may have been "brought forward" into today's note. My signature on this note, however, is an attestation that I personally performed the exam, history, and/or decision-making noted today, and, unless otherwise indicated, the interactions with patient, family, and staff as well as the review of records all occurred today. I also attest that the listed assessment and stated plan reflect my best clinical judgment today based on the combination of historical information, prior notes, and today's exam/ interactions. When time spent is documented, it refers only to time spent today by the signer, or if indicated, combined time spent today by collaborating physician/nurse practitioner. Teri Carlin Mar 27, 2017 13:07
--- NOTE | 2017-03-27 14:56 | HHI.IDPN ---
Subjective Subjective Remarks is a 46 y/o CM with PMHx of DM2, HTN, ? 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 secondary to prednisone. She used to walk 6 years back then subsequently became wheel chair bound for trips. The patient is now in crippling pain secondary to RA constant neck pain inability to move neck. She sleeps in her wheel chair and has not slept in bed for years. Patient is mostly wheel chair bound but is able to walk short distances. During that November admission in 2016 patient had bilateral lower extremity cellulitis as well as diagnosed with C. difficile during that admission. Meningoencephalitis workup was negative. Patient follows at baseline with Brisa (Rheum) and (ID). 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 She also has hardware in her cervical spine which unfortunately cannot be removed due to stability issues. After her November admission patient was discharged home and was back to her normal self which is sleeping in her wheelchair and needing assistance to even go to the bathroom. Approximately 2 weeks back patient's mother noticed worsening mental status and patient not eating much. Approximately a day prior to admission patient apparently had fever 101 associated with rigors and hence was brought to the hospital for further evaluation. Patient met criteria for sepsis on admission. Blood cultures done on admission are positive for gram-negative rods and infectious disease is consulted for the same. Overnight events reviewed Fevers defervescing after Cefepime changed to Azactam IV, will follow trend. Repeat blood cultures pending. No rash No diarrhea Much more awake appears to be close to baseline. Pain meds held overnight per Neurology and this appears to have helped. Left great toe with avulsed nail and dried blood. Erythema and tenderness new. MRI brain with chronic white matter changes. CSF studies reviewed doubt new infection. Possible chronic changes from Inflammatory process. Antibiotics Azactam IV Vanco IV Lines Line sites with no e.o infection Past Medical History DM HTN MS RA, immunocompromised Questionable CHF Osteoporosis Past Surgical History Cervical fusion 2007 Allergies: Coded Allergies: hydromorphone (Verified Allergy, Unknown, 03/21/17) metformin (Verified Allergy, Unknown, 03/21/17) Objective . Vital Signs Date Time Temp Pulse Resp B/P (MAP) Pulse Ox O2 Delivery O2 Flow Rate FiO2 03/27/17 12:21 97.9 85 18 163/78 (106) 100 03/27/17 12:00 96 03/27/17 09:12 99.4 112 18 167/74 (105) 100 03/27/17 08:00 115 03/27/17 04:00 98 03/27/17 04:00 98.1 97 20 142/79 (100) 100 03/27/17 00:00 104 03/27/17 00:00 99.0 91 20 139/77 (97) 98 03/26/17 20:00 99 03/26/17 20:00 Room Air 03/26/17 20:00 98.9 112 21 152/98 (116) 100 03/26/17 16:51 Room Air 03/26/17 16:00 101.5 102 20 112/59 (76) 96 03/26/17 16:00 94 . Laboratory Tests Test 03/26/17 14:22 White Blood Count 12.3 TH/MM3 Red Blood Count 4.44 MIL/MM3 Hemoglobin 11.7 GM/DL Hematocrit 36.3 % Mean Corpuscular Volume 81.8 FL Mean Corpuscular Hemoglobin 26.4 PG Mean Corpuscular Hemoglobin Concent 32.2 % Red Cell Distribution Width 16.5 % Platelet Count 161 TH/MM3 Mean Platelet Volume 8.7 FL Neutrophils (%) (Auto) 89.6 % Lymphocytes (%) (Auto) 3.8 % Monocytes (%) (Auto) 5.6 % Eosinophils (%) (Auto) 0.3 % Basophils (%) (Auto) 0.7 % Neutrophils # (Auto) 11.1 TH/MM3 Lymphocytes # (Auto) 0.5 TH/MM3 Monocytes # (Auto) 0.7 TH/MM3 Eosinophils # (Auto) 0.0 TH/MM3 Basophils # (Auto) 0.1 TH/MM3 CBC Comment DIFF FINAL Differential Comment Hematology Comments Laboratory Tests Test 03/26/17 14:22 Blood Urea Nitrogen 7 MG/DL Creatinine 0.35 MG/DL Random Glucose 272 MG/DL Total Protein 5.0 GM/DL Albumin 1.7 GM/DL Calcium Level 7.4 MG/DL Phosphorus Level 0.9 MG/DL Magnesium Level 1.3 MG/DL Alkaline Phosphatase 106 U/L Aspartate Amino Transf (AST/SGOT) 11 U/L Alanine Aminotransferase (ALT/SGPT) 11 U/L Total Bilirubin 0.2 MG/DL Sodium Level 131 MEQ/L Potassium Level 3.7 MEQ/L Chloride Level 105 MEQ/L Carbon Dioxide Level 13.9 MEQ/L Anion Gap 12 MEQ/L Estimat Glomerular Filtration Rate 200 ML/MIN Protein Corrected Calcium 8.6 MG/DL Microbiology Date/Time Source Procedure Growth Status 03/25/17 13:38 Blood Peripheral Aerobic Blood Culture - Preliminary NO GROWTH IN 2 DAYS Resulted 03/25/17 13:38 Blood Peripheral Anaerobic Blood Culture - Preliminary NO GROWTH IN 2 DAYS Resulted 03/25/17 13:34 Blood Peripheral Aerobic Blood Culture - Preliminary NO GROWTH IN 2 DAYS Resulted 03/25/17 13:34 Blood Peripheral Anaerobic Blood Culture - Preliminary NO GROWTH IN 2 DAYS Resulted 03/26/17 18:15 Cerebral Spinal Fluid Lumbar Puncture Fungal Smear - Final NO FUNGAL ELEMENTS SEEN. Resulted 03/26/17 18:15 Cerebral Spinal Fluid Lumbar Puncture Fungal Culture Pending Resulted 03/26/17 18:15 Cerebral Spinal Fluid Lumbar Puncture Acid Fast Stain Pending Received 03/26/17 18:15 Cerebral Spinal Fluid Lumbar Puncture Mycobacterial Culture Pending Received 03/26/17 18:15 Cerebral Spinal Fluid Lumbar Puncture Gram Stain - Final Resulted 03/26/17 18:15 Cerebral Spinal Fluid Lumbar Puncture CSF Culture - Preliminary NO GROWTH IN 24 HOURS. Resulted Imaging Last Impressions Head CT 03/22/17 0000 Signed Impressions: Service Date/Time: February 20:16 - CONCLUSION: No evidence of acute cardiopulmonary disease. Prominent chronic white matter changes for a patient this age. Marcus Devi MD Abdomen/Pelvis CT 03/22/17 0000 Signed Impressions: Service Date/Time: February 20:18 - CONCLUSION: 1. Mild, diffuse colitis in the proper clinical setting. This is nonspecific, presumably infectious or inflammatory. No abscess, perforation or obstruction. 2. Chronic/unchange findings otherwise including multiple nonacute fractures and a tiny nonobstructing stone of the right kidney. Marcus Devi MD Chest X-Ray 03/21/17 1006 Signed Impressions: Service Date/Time: Tuesday, March 21, 2017 10:16 - CONCLUSION: Right midlung and left basilar scarring versus minimal infiltrates. Garret Weber MD Toe X-Ray 03/21/17 0000 Signed Impressions: Service Date/Time: Tuesday, March 21, 2017 15:45 - CONCLUSION: 1. 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 2. Prior compression screw fixation of the first MTP. 3. No acute fracture. Jorden Nina MD Physical Exam GENERAL: Obese, Cushingoid appearing patient. No cardiopulm distress. SKIN: Joints with significant deformities [place] of upper extremities. Upper extremity again difficult to assess but area of chronic scabbing with surrounding erythema. HEAD: Atraumatic. Normocephalic. No temporal or scalp tenderness. EYES: Pupils equal round and reactive. Extraocular motions intact. No scleral icterus. No injection or drainage. ENT: Nose without bleeding, purulent drainage. NECK: Trachea midline. Large neck. No lymphadenopathy. Hardware in neck ? chronic neck stiffness based on prior exams. CARDIOVASCULAR: Regular rate and rhythm without murmurs. RESPIRATORY: Clear to auscultation. Breath sounds equal bilaterally. No wheezes , rales, or rhonchi. GASTROINTESTINAL: Abdomen soft, non-tender, nondistended. MUSCULOSKELETAL: Extremities without clubbing, cyanosis, or edema. Left great toe with avulsed nail and dried blood. Erythema and tenderness new. Right great toe with erythema on dorsal aspect. NEUROLOGICAL: Somnolent, not following commands, moans and groans. Opens eyes spontaneously. Psych: cooperative IV line sites with no e.o infection. Assessment & Plan Remarks Sepsis present on admission. Morganella bacteremia appears transient. GP bacteremia which is prelim ID as anaerobe. Left great toe osteomyelitis/septic emboli. Right great toe septic emboli vs cellulitis. Pneumonia CAP vs Possible aspiration pneumonia Rheumatoid arthritis on immunosuppressants, Immune compromised ? multiple sclerosis. h/o Cdiff Acute metabolic encephalopathy: sepsis, subclinical seizures breakthrough, ? new stroke. Recs: Continue Azactam IV (Morganella bacteremia) Continue Flagyl IV (anaerobic bacteremia) Continue oral vanco (recently treated for Cdiff) MRI brain with chronic white matter changes. CSF studies reviewed doubt new infection. Possible chronic changes from Inflammatory process. Consult podiatry. Patients significant other notes pain and discomfort in left great toe for a while, nail changes worsened and erythema as new issue. pippa patient significant other in room: Cardio note about TOMÁS risks reviewed. Also pointed to the left great toe and my concern for septic emboli. Will get an ECHO since the risk of neck issues given cervical fusion, RA and infection history and chronic antibiotic suppression. follow cultures follow clinically. Priscilla Viveros RN, MD Mar 27, 2017 14:56
[2017-03-27 15:16] LABS: AUTOMATED NEUTROPHIL # 9.6 TH/MM3 (1.8-7.7); BASOPHIL # 0.1 TH/MM3 (0-0.2); BASOPHIL % 0.6 % (0.0-2.0); EOSINOPHIL % 0.2 % (0.0-4.0); HEMATOCRIT 33.2 % (35.0-46.0); HEMOGLOBIN 11.5 GM/DL (11.6-15.3); LYMPH % 3.2 % (9.0-44.0); LYMPHOCYTE # 0.3 TH/MM3 (1.0-4.8); MEAN CELL VOLUME 79.6 FL (80.0-100.0); MEAN CORPUSCULAR HEMOGLOBIN 27.6 PG (27.0-34.0); MEAN CORPUSCULAR HGB CONC 34.6 % (32.0-36.0); MEAN PLATELET VOLUME 8.3 FL (7.0-11.0); MONO % 4.7 % (0.0-8.0); MONOCYTE # 0.5 TH/MM3 (0-0.9); NEUT % 91.3 % (16.0-70.0); PLATELET COUNT 265 TH/MM3 (150-450); RED BLOOD COUNT 4.17 MIL/MM3 (4.00-5.30); RED CELL DISTRIBUTION WIDTH 16.3 % (11.6-17.2); WHITE BLOOD COUNT 10.5 TH/MM3 (4.0-11.0)
[2017-03-27 15:54] LABS: BICARBONATE 20.9 MEQ/L (21.0-32.0); CALCIUM 7.6 MG/DL (8.5-10.1); CREATININE 0.24 MG/DL (0.50-1.00); MAGNESIUM 1.8 MG/DL (1.5-2.5); PHOSPHORUS 0.9 MG/DL (2.5-4.9)
--- NOTE | 2017-03-27 16:37 | HHI.PR ---
Subjective Remarks Discussed with nursing area patient much more alert today. Patient says she is feeling all right. Denies any chest pain or shortness of breath. She reports pain at the right toe which has been there for some time. Discussed with daughter bedside, who says her mother is not back to mental baseline, however is much better then previously. Objective Vital Signs Date Time Temp Pulse Resp B/P (MAP) Pulse Ox O2 Delivery O2 Flow Rate FiO2 03/27/17 15:47 Room Air 03/27/17 12:21 97.9 85 18 163/78 (106) 100 03/27/17 12:00 96 03/27/17 09:30 Room Air 03/27/17 09:12 99.4 112 18 167/74 (105) 100 03/27/17 08:00 115 03/27/17 04:00 98 03/27/17 04:00 98.1 97 20 142/79 (100) 100 03/27/17 00:00 104 03/27/17 00:00 99.0 91 20 139/77 (97) 98 03/26/17 20:00 99 03/26/17 20:00 Room Air 03/26/17 20:00 98.9 112 21 152/98 (116) 100 03/26/17 16:51 Room Air I/O 03/26/17 03/26/17 03/26/17 03/27/17 03/27/17 03/27/17 07:00 15:00 23:00 07:00 15:00 23:00 Intake Total 1280 ml 200 ml 1205 ml Output Total 4 ml Balance 1280 ml 200 ml 1201 ml Intake Oral 0 ml IV Total 1280 ml 200 ml 1205 ml Output Urine Total 4 ml # Voids 100 # Bowel Movements 3 Result Diagram: 03/27/17 1503 03/27/17 1503 Objective Remarks GENERAL: Lying in bed. Appears comfortable. Patient awake, alert. SKIN: Warm and dry. HEAD: Normocephalic. EYES: No scleral icterus. No injection or drainage. NECK: Supple, trachea midline. No JVD. CARDIOVASCULAR: Regular rate and rhythm without murmurs, gallops, or rubs. RESPIRATORY: Breath sounds equal bilaterally. No accessory muscle use. GASTROINTESTINAL: Abdomen soft, non-tender, nondistended. MUSCULOSKELETAL: No cyanosis, or edema. BACK: Nontender without obvious deformity. No CVA tenderness. A/P Assessment and Plan 03/27/17======== //Sepsis. Tachycardia, fevers. Follow-up anaerobic gram-positive cocci from blood cultures. I will culture still pending Repeat blood cultures negative to date. Continue IV antibiotics as per ID recommendations. //Encephalopathy. Improved with discontinuation of gabapentin, and increase of steroids to stress dose. HSV PCR of CSF pending. Appreciate neurology and ID assistance. Discussed with infectious disease. Discontinue gabapentin. . Continue to Hold gabapentin. //Hypophosphatemia. 0.9. Replace. Continue to monitor //Hypomagnesemia. 1.8. Improved after replacement. //Not tolerating by mouth intake. Swallow eval. Continue NG tube for now. //Diabetes mellitus. Glucose much improved. Continue diabetic diet, scheduled Levemir and sliding scale. //Metabolic acidosis. Reviewed ABG yesterday. Carbon dioxide 20.9 today. Much improved. Urine labs have not been ordered for calculation of urine anion gap. Unfortunately had hoped for these to be done prior to initiation of bicarbonate drip. We'll continue bicarbonate for now. Plan for reevaluation in several days. //Hyponatremia. Sodium improved today 135. Continue to monitor on IV fluids. //Diarrhea. Likely secondary to tube feeding, however with anion gap acidosis, will consult GI for further workup. //Suspected adrenal insufficiency. chronic steroids. Alertness appears much improved on increased dose of prednisone, now at 10 mg by mouth twice daily. Continue stress dose prednisone. //Right first toe infection. Podiatry consult ordered and pending 46-year-old female admitted secondary to sepsis with pneumonia. Encephalopathy present admitted. Encephalopathy improving. Has infection improving. Patient stable for transfer out of ICU. Continue cefepime and azithromycin. Continue to monitor blood work, labs ordered. //Right middle lobe pneumonia //Sepsis //Baseline Immunocompromised state Continue cefepime Continue ORAL FLAGYL ORAL VANCO Workup expanded to include CT of abdomen and pelvis, to screen for infection-- COLITIS ON CAT SCAN Continue oxygen as needed //Hypertension Continue baseline treatment Follow blood pressures Adjust treatments as needed //pericardial effusion history pericardial tamponade- s/p window Follow clinically //RA //Osteoporosis //immunocompromised No change to baseline treatment //History of CVA //Acute Expressive aphasia //Chronic left-sided weakness May be contributory to encephalopathy Evaluate for acute CVA or brain bleed with head CT- NEGATIVE PER CT //Seizure disorder Continue Keppra //Diabetes mellitus type 2 Follow blood sugars Insulin sliding scale Diabetic diet //Hypokalemia Will replace via IV //DVT prophylaxis Lovenox. Discharge Planning Continued inpatient treatment for sepsis. Lucas Espino MD Mar 27, 2017 16:37
[2017-03-27] MEDS ORDERED: POTASSIUM PHOSPHATE INJ 30 MMOL in SODIUM CHLOR 0.9% 250 ML INJ 250 ML IV ONE (18:00)
[2017-03-28] VITALS (11 sets, daily range): BP systolic 146–178; BP diastolic 76–94; PULSE 95–127; RESP 16–20; TEMP 97.1–98.9; O2SAT 93–97
[2017-03-28] MEDS: FREE WATER PO SCH ×6 (02:00→21:12)
[2017-03-28] MEDS: [UNRECOGNIZED DRUG - OTHER] IV SCH (03:29)
[2017-03-28] MEDS: SODIUM BICARBONATE IV SCH (03:29)
[2017-03-28] MEDS: POTASSIUM CHLORIDE IV SCH (03:29)
[2017-03-28] MEDS: AZTREONAM INJ 2,000 MG in SODIUM CHLORIDE 0.9% INJ 100 ML IV SCH ×3 (04:07→21:12)
[2017-03-28] MEDS: metroNIDAZOLE 500 MG INJ 100 ML IV SCH ×3 (04:49→21:12)
--- NOTE | 2017-03-28 07:34 | HHI.PR ---
Subjective Remarks sr afeb Objective Vital Signs Date Time Temp Pulse Resp B/P (MAP) Pulse Ox O2 Delivery O2 Flow Rate FiO2 03/28/17 04:00 97.1 99 18 147/80 (102) 96 03/28/17 03:58 101 03/28/17 00:00 95 03/28/17 00:00 97.2 96 20 146/76 (99) 95 03/27/17 22:56 Room Air 03/27/17 20:00 98.2 113 19 139/76 (97) 96 03/27/17 17:05 97.6 100 20 168/79 (108) 99 03/27/17 16:00 99 03/27/17 15:47 Room Air 03/27/17 12:21 97.9 85 18 163/78 (106) 100 03/27/17 12:00 96 03/27/17 09:30 Room Air 03/27/17 09:12 99.4 112 18 167/74 (105) 100 03/27/17 08:00 115 I/O 03/27/17 03/27/17 03/27/17 03/28/17 03/28/17 03/28/17 07:00 15:00 23:00 07:00 15:00 23:00 Intake Total 1205 ml 2677 ml Output Total 4 ml Balance 1201 ml 2677 ml Intake Oral 0 ml IV Total 1205 ml 1637 ml Tube Feeding 240 ml Other 800 ml Output Urine Total 4 ml # Voids 100 4 5 # Bowel Movements 3 3 2 Result Diagram: 03/27/17 1503 03/27/17 1503 Objective Remarks awake alert ox3 hmc vff moves all well nl speech Assessment and Plan Assessment and Plan imp much better clinically has on mri tiny left looks like subacute cva and enhancing left cbllr older cva i think we should do tresa LP 41 wbc prot inc similar to LP in 12/12 eeg i reviewed and looks mainly slow no sz i doubt csf indicates acute infxt as had neg megwu last time not classic mri for ms and the changes in bridget and wm changes perventricular and basal ganglia changes a bit worse than november 2016 at some point i think she needs to get an opinion on what is likley chronic csf changes at [facility] much better clinically so will not add high dose steroids right now unless declines clinically limit narcotics no sedatives ABOVE I WOULD LIKE TO GET TRESA THERE IS A SMALL LEFT ACUTE AND WHAT LOOKS LIKE SUBACUTE CVA SO TWO OF THEM i will be out of town 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 if tresa neg baby asa ok i ordered [id number] and v Rg Torrez MD Mar 28, 2017 07:34
[2017-03-28] MEDS: INSULIN ASPART SUPPLEMENTAL SCALE SQ SCH ×4 (08:00→21:00)
[2017-03-28 08:30] LABS: AUTOMATED NEUTROPHIL # 5.1 TH/MM3 (1.8-7.7); BASOPHIL % 0.6 % (0.0-2.0); EOSINOPHIL % 0.3 % (0.0-4.0); HEMATOCRIT 33.2 % (35.0-46.0); HEMOGLOBIN 10.9 GM/DL (11.6-15.3); LYMPHOCYTE # 0.5 TH/MM3 (1.0-4.8); MEAN CORPUSCULAR HGB CONC 32.9 % (32.0-36.0); MEAN PLATELET VOLUME 8.7 FL (7.0-11.0); MONO % 12.2 % (0.0-8.0); MONOCYTE # 0.8 TH/MM3 (0-0.9); NEUT % 78.9 % (16.0-70.0); PLATELET COUNT 313 TH/MM3 (150-450); RED CELL DISTRIBUTION WIDTH 16.2 % (11.6-17.2); WHITE BLOOD COUNT 6.5 TH/MM3 (4.0-11.0)
[2017-03-28 08:38] LABS: BICARBONATE 24.8 MEQ/L (21.0-32.0); BLOOD UREA NITROGEN 6 MG/DL (7-18); CALCIUM 7.5 MG/DL (8.5-10.1); CHLORIDE 104 MEQ/L (98-107); CREATININE LESS THAN 0.15 MG/DL (0.50-1.00); GLOMERULAR FILTRATION RATE 531 ML/MIN (>89); GLUCOSE,RANDOM 91 MG/DL (74-106); MAGNESIUM 1.8 MG/DL (1.5-2.5); PHOSPHORUS 1.3 MG/DL (2.5-4.9); SODIUM (NA) 138 MEQ/L (136-145)
[2017-03-28] MEDS: SODIUM CHLORIDE 0.9% FLUSH 10 ML FLUSH IV FLUSH SCH ×2 (11:10→21:00)
[2017-03-28] MEDS: predniSONE 5 MG TAB NG SCH ×2 (11:10→21:11)
[2017-03-28] MEDS: FAMOTIDINE 20 MG TAB PO SCH ×2 (11:11→21:11)
[2017-03-28] MEDS: LACTOBACILLUS ACIDOPHILUS TAB PO SCH ×3 (11:11→16:50)
[2017-03-28] MEDS: INSULIN DETEMIR 100 UNITS/ML VIAL SQ SCH ×2 (11:11→21:00)
[2017-03-28] MEDS: METOPROLOL TARTRATE 50 MG TAB PO SCH ×2 (11:11→21:12)
[2017-03-28 12:02] LABS: HSV 1,PCR Negative (Negative)
--- NOTE | 2017-03-28 12:35 | PD.POD.CON ---
Patient Intake Chief Complaint Possible infection of the left hallux Consult Requested by Dr. Corey Reason for Consult Evaluate left hallux for source of sepsis Primary Care Physician Mario Alberto Danielson Jr, DO History of Present Illness Patient is a 46-year-old patient with MS who presented with altered mental status. Infectious disease wanted to know whether the left hallux is the source of her possible septicemia. Coded Allergies: hydromorphone (Verified Allergy, Unknown, 03/21/17) metformin (Verified Allergy, Unknown, 03/21/17) Preferred Language to Discuss: Serbian Barriers to Learning: Physical, Cognitive/Written, Emotional, Cognitive/Verbal Teaching Method: Discussion Vital Signs Date Time Temp Pulse Resp B/P (MAP) Pulse Ox O2 Delivery O2 Flow Rate FiO2 03/28/17 12:09 97.4 99 18 177/91 (119) 97 03/28/17 08:01 98.6 117 16 176/87 (116) 93 03/28/17 08:00 124 03/28/17 04:00 97.1 99 18 147/80 (102) 96 03/28/17 03:58 101 03/28/17 00:00 95 03/28/17 00:00 97.2 96 20 146/76 (99) 95 03/27/17 22:56 Room Air 03/27/17 20:00 98.2 113 19 139/76 (97) 96 03/27/17 17:05 97.6 100 20 168/79 (108) 99 03/27/17 16:00 99 03/27/17 15:47 Room Air Pain scale used: 0-10 numeric scale Pain score: 5 Medications Current Medications Acetaminophen (Tylenol) 650 mg ONCE ONCE PO Last administered on 03/21/17at 10: 22; Start 03/21/17 at 10:15; Stop 03/21/17 at 10:16; Status DC Sodium Chloride 1,000 ml @ 1,000 mls/hr Q1H ONCE IV Last administered on at 10:48; Start 03/21/17 at 10:06; Stop 03/21/17 at 11:05; Status DC Sodium Chloride 800 ml @ 1,000 mls/hr Q48M ONCE IV Last administered on at 11:15; Start 03/21/17 at 10:06; Stop 03/21/17 at 10:53; Status DC Cefepime HCl 2000 mg/Sodium Chloride 100 ml @ 200 mls/hr ONCE ONCE IV Last administered on 03/21/17at 11:15; Start 03/21/17 at 11:00; Stop 03/21/17 at 11:29 ; Status DC Azithromycin 500 mg/Sodium Chloride 250 ml @ 250 mls/hr ONCE ONCE IV Last administered on 03/21/17at 11:51; Start 03/21/17 at 11:00; Stop 03/21/17 at 11:59 ; Status DC Sodium Chloride (NS Flush) 2 ml UNSCH PRN IV FLUSH FLUSH AFTER USING IV ACCESS Last administered on 03/23/17at 08:13; Start 03/21/17 at 13:00 Sodium Chloride (NS Flush) 2 ml BID IV FLUSH Last administered on 03/28/17at 11: 10; Start 03/21/17 at 21:00 Naloxone HCl (Narcan Inj) 0.4 mg UNSCH PRN IV PUSH SEE LABEL COMMENTS; Start at 13:00 Lactobacillus Acidophilus (Lactinex) 1 tab TID PO Last administered on at 11:11; Start 03/21/17 at 18:00 Levetriacetam (Keppra) 500 mg Q12HR PO Last administered on 03/24/17at 08:44; Start 03/21/17 at 21:00; Stop 03/25/17 at 23:02; Status DC Oxycodone/ Acetaminophen (Percocet 10-325 Mg) 1 tab Q6H PRN PO BREAKTHROUGH PAIN Last administered on 03/24/17at 08:44; Start 03/21/17 at 15:30; Stop at 16:14; Status DC Cefepime HCl 1000 mg/Sodium Chloride 100 ml @ 200 mls/hr Q12H IV Last administered on 03/22/17at 10:50; Start 03/21/17 at 23:00; Stop 03/22/17 at 15:53 ; Status DC Azithromycin 500 mg/Sodium Chloride 250 ml @ 250 mls/hr Q24H IV Last administered on 03/22/17at 09:26; Start 03/22/17 at 09:00; Stop 03/22/17 at 15:53 ; Status DC Prednisone (Deltasone) 5 mg BID PO Last administered on 03/26/17at 10:00; Start 03/21/17 at 21:00; Stop 03/26/17 at 15:53; Status DC Famotidine (Pepcid) 20 mg Q12HR PO Last administered on 03/28/17at 11:11; Start 03/21/17 at 21:00 Water (Free Water) 200 ml Q4HR PO ; Start 03/21/17 at 16:00; Stop 03/21/17 at 18 :41; Status DC Metronidazole 100 ml @ 100 mls/hr Q6HR IV ; Start 03/21/17 at 18:30; Status Cancel Sodium Chloride 1,000 ml @ 999 mls/hr BOLUS ONCE IV Last administered on 03/21at 18:51; Start 03/21/17 at 18:30; Stop 03/21/17 at 19:30; Status DC Sodium Chloride 1,000 ml @ 999 mls/hr BOLUS ONCE IV Last administered on 03/21at 18:51; Start 03/21/17 at 18:30; Stop 03/21/17 at 19:30; Status DC Lorazepam (Ativan Inj) 1 mg ONCE ONCE IV PUSH Last administered on 03/21/17at 18:52; Start 03/21/17 at 18:30; Stop 03/21/17 at 18:39; Status DC Vancomycin HCl (VANCOMYCIN for oral use only) 500 mg QID PO Last administered on 03/23/17at 22:34; Start 03/21/17 at 18:30; Status Future Hold Metronidazole 100 ml @ 100 mls/hr Q6H IV Last administered on 03/22/17at 13:00 ; Start 03/21/17 at 20:00; Stop 03/22/17 at 15:53; Status DC Water (Free Water) VOLUME OF WATER: 200 ML... Q4H PO Last administered on at 11:11; Start 03/21/17 at 18:00 Acetaminophen (Tylenol) 650 mg Q4H PRN PO fever >101 Last administered on at 13:42; Start 03/21/17 at 19:45 Labetalol HCl (Trandate Inj) 10 mg Q20M PRN IV PUSH bp>160/90, HR >110 Last administered on 03/23/17at 11:45; Start 03/21/17 at 20:45; Stop 03/23/17 at 15:04 ; Status DC Ondansetron HCl (Zofran Inj) 4 mg Q6HR PRN IV PUSH Nausea Last administered on 03/22/17at 13:00; Start 03/22/17 at 10:45 Cefepime HCl 2000 mg/Sodium Chloride 100 ml @ 200 mls/hr Q8H IV Last administered on 03/25/17at 09:11; Start 03/22/17 at 17:00; Stop 03/25/17 at 14:07 ; Status DC Diatrizoate Meglum/ Diatrizoate Sod ( Gastromary Liq) 18 ml ONCE ONCE PO Last administered on 03/22/17at 16:22; Start 03/22/17 at 16:30; Stop 03/22/17 at 16:31; Status DC Lorazepam (Ativan Inj) 1 mg ONCE PRN IV PUSH [address] Last administered on 03/22/17at 19:30; Start 03/22/17 at 18:30; Stop 03/24/17 at 18:29 ; Status DC Potassium Chloride 100 ml @ 50 mls/hr Q2H IV Last administered on 03/22/17at 22 :31; Start 03/22/17 at 19:15; Stop 03/22/17 at 23:14; Status DC Iohexol (Omnipaque 350 Inj) 100 ml STK-MED ONCE IVCONTRAST Last administered on 03/22/17at 20:26; Start 03/22/17 at 20:26; Stop 03/22/17 at 20:27; Status DC Potassium Chloride 100 ml @ 50 mls/hr Q2H IV Last administered on 03/23/17at 11 :52; Start 03/23/17 at 09:30; Stop 03/23/17 at 13:29; Status DC Metronidazole (Flagyl) 500 mg Q8H PO Last administered on 03/24/17at 06:10; Start 03/23/17 at 12:00; Stop 03/25/17 at 03:48; Status DC Baclofen (Lioresal) 10 mg Q8HR PRN PO MUSCLE SPASMS Last administered on at 02:03; Start 03/23/17 at 13:30; Stop 03/26/17 at 16:14; Status DC Citalopram Hydrobromide (CeleXA) 20 mg DAILY PO Last administered on 03/26/17at 10:00; Start 03/24/17 at 09:00; Stop 03/26/17 at 16:14; Status DC Gabapentin (Neurontin) 800 mg TID PO Last administered on 03/26/17at 13:41; Start 03/23/17 at 18:00; Stop 03/26/17 at 16:14; Status DC Metoprolol Tartrate (Lopressor) 50 mg ONCE ONCE PO Last administered on at 14:24; Start 03/23/17 at 13:45; Stop 03/23/17 at 13:46; Status DC Metoprolol Tartrate (Lopressor) 50 mg Q12HR PO Last administered on 03/28/17at 11:11; Start 03/24/17 at 09:00 Enalaprilat (Vasotec Inj) 1.25 mg Q6H PRN IV PUSH SBP>160, DBP>90; Start at 13:45 Clonidine (Catapres) 0.1 mg Q6H PRN PO SBP>160, DBP>90; Start 03/23/17 at 13:45 Potassium Chloride/Dextrose/ Sod Cl 1,000 ml @ 100 mls/hr Q10H IV Last administered on 03/26/17at 15:30; Start 03/24/17 at 13:06; Stop 03/26/17 at 16:00 ; Status DC Metoprolol Tartrate (Lopressor Inj) 5 mg ONCE ONCE IV PUSH Last administered on 03/24/17at 23:44; Start 03/24/17 at 23:30; Stop 03/24/17 at 23:31; Status DC Metoprolol Tartrate (Lopressor Inj) 5 mg ONCE ONCE IV PUSH ; Start 03/25/17 at 01:45; Stop 03/25/17 at 01:59; Status DC Acetaminophen 100 ml @ 400 mls/hr ONCE ONCE IV Last administered on at 02:14; Start 03/25/17 at 02:00; Stop 03/25/17 at 02:14; Status DC Pharmacy Profile Note 0 ml @ 0 mls/hr UNSCH OTHER ; Start 03/25/17 at 03:45; Stop 03/26/17 at 09:47; Status DC Metronidazole 100 ml @ 100 mls/hr Q8H IV Last administered on 03/28/17at 04:49 ; Start 03/25/17 at 04:00 Sodium Chloride 1,000 ml @ 999 mls/hr BOLUS ONCE IV Last administered on 03/25at 04:27; Start 03/25/17 at 04:00; Stop 03/25/17 at 05:00; Status DC Vancomycin HCl 1200 mg/Sodium Chloride 262 ml @ 250 mls/hr ONCE ONCE IV ; Start 03/25/17 at 05:00; Stop 03/25/17 at 05:00; Status DC Vancomycin HCl 1200 mg/Sodium Chloride 262 ml @ 250 mls/hr ONCE ONCE IV ; Start 03/25/17 at 05:00; Stop 03/25/17 at 06:02; Status Cancel Vancomycin HCl 1200 mg/Sodium Chloride 262 ml @ 250 mls/hr ONCE ONCE IV Last administered on 03/25/17at 05:00; Start 03/25/17 at 05:00; Stop 03/25/17 at 06:02 ; Status DC Vancomycin/Sodium Chloride 200 ml @ 200 mls/hr Q12H IV Last administered on at 05:41; Start 03/25/17 at 18:00; Stop 03/26/17 at 09:47; Status DC Miscellaneous Information SPECIFIC LAB TO BE HALLE... ONCE ONCE .XX ; Start 03/26 at 17:45; Stop 03/26/17 at 17:46; Status Cancel Morphine Sulfate (Morphine Inj) 2 mg Q3H PRN IV PUSH PAIN 1 TO 5 Last administered on 03/26/17at 10:07; Start 03/25/17 at 11:30; Stop 03/26/17 at 16:14 ; Status DC Morphine Sulfate (Morphine Inj) 4 mg Q3H PRN IV PUSH 6 TO 10 PAIN; Start at 11:30; Stop 03/26/17 at 16:14; Status DC Aztreonam 2000 mg/ Sodium Chloride 100 ml @ 200 mls/hr Q8H IV Last administered on 03/26/17at 10:54; Start 03/25/17 at 16:00; Stop 03/26/17 at 20:06 ; Status DC Levetriacetam (Keppra Liq) 500 mg Q12H NG Last administered on 03/27/17at 22:37 ; Start 03/25/17 at 23:00 Prednisone (Deltasone) 10 mg BID NG Last administered on 03/28/17at 11:10; Start 03/26/17 at 21:00 Hydrocortisone Sodium Succinate (SoluCORTEF INJ) 100 mg ONCE ONCE IV PUSH ; Start 03/26/17 at 16:30; Stop 03/26/17 at 16:31; Status DC Magnesium Sulfate/ Dextrose 100 ml @ 100 mls/hr Q1H IV ; Start 03/26/17 at 17: 00; Stop 03/26/17 at 18:59; Status Cancel Sodium Phosphate 15 mmol/Sodium Chloride 155 ml @ 38.75 mls/ hr ONCE ONCE IV ; Start 03/26/17 at 18:00; Stop 03/26/17 at 21:59; Status Cancel Insulin Detemir (Levemir Inj) 8 units Q12HR SQ Last administered on 03/28/17at 11:11; Start 03/26/17 at 21:00 Insulin Aspart (NovoLOG SUPPLEMENTAL SCALE) 1 ACHS SLIDING SCALE SQ Last administered on 03/27/17at 08:32; Start 03/26/17 at 17:00 Dextrose (D50w (Vial) Inj) 50 ml UNSCH PRN IV PUSH HYPOGLYCEMIA - SEE COMMENTS ; Start 03/26/17 at 16:30 Glucagon (Glucagon Inj) 1 mg UNSCH PRN OTHER HYPOGLYCEMIA-SEE COMMENTS; Start 03/26/17 at 16:30 Sodium Bicarbonate 150 meq/Potassium Chloride 20 meq/ Sterile Water 1,010 ml @ 100 mls/hr Q10H6M IV Last administered on 03/28/17at 03:29; Start 03/26/17 at 19 :00 Potassium Bicarb/ Potassium Chloride (K-Lyte Cl Eff) 25 meq ONCE ONCE NG Last administered on 03/26/17at 23:00; Start 03/26/17 at 19:00; Stop 03/26/17 at 19:21; Status DC Gadodiamide (Omniscan Pf Inj) 11 ml STK-MED ONCE IVCONTRAST ; Start 03/26/17 at 19:55; Stop 03/26/17 at 19:56; Status DC Aztreonam 2000 mg/ Sodium Chloride 100 ml @ 200 mls/hr Q8H IV Last administered on 03/28/17at 04:07; Start 03/26/17 at 20:00 Magnesium Sulfate/ Dextrose 100 ml @ 100 mls/hr Q1H IV Last administered on at 23:01; Start 03/26/17 at 21:00; Stop 03/26/17 at 22:59; Status DC Sodium Phosphate 15 mmol/Sodium Chloride 155 ml @ 38.75 mls/ hr ONCE ONCE IV ; Start 03/26/17 at 23:00; Stop 03/27/17 at 02:59; Status Cancel Sodium Phosphate 15 mmol/Sodium Chloride 255 ml @ 63.75 mls/ hr ONCE ONCE IV Last administered on 03/27/17at 00:31; Start 03/26/17 at 23:00; Stop 03/27/17 at 02:59; Status DC Potassium Phosphate 30 mmol/ Sodium Chloride 260 ml @ 43.333 mls/ hr ONCE ONCE IV Last administered on 03/27/17at 17:59; Start 03/27/17 at 18:00; Stop at 23:59; Status DC Past, Family & Social History Past Medical History Psychiatric: REPORTS HX OF: Other psychiatric history Genetic/Metabolic: REPORTS HX OF: Other metabolic history Disabilities: REPORTS HX OF: Other disabilities Review of Systems Constitutional: COMPLAINS OF: Pain Musculoskeletal: COMPLAINS OF: Deformaties Neurological: COMPLAINS OF: Numbness/tingling, Changes in sensation Exam-Podiatry Constitutional General appearance: comfortable Nutritional status: overweight Orientation: other Dermatological Exam Skin Temp - Right: Cool Skin Texture - Right: Thin Skin Elasticity - Right: Decreased Hair Growth - Right: Absent Skin Temp - Left: Cool Skin Texture - Left: Thin Skin Elasticity - Left: Decreased Hair Growth - Left: Absent Present on right: Eczematous Skin Present on left: Eczematous Skin Abnormal Nail Conditions Hallux toenail left foot appears with old bleeding underneath of it with thickness and partial lysis. No signs of infection or paronychia Vascular/Lymphatic Exam R Dorsails Pedis: Absent L Dorsails Pedis: Absent R Posterior Tibial: Absent L Posterior Tibial: Absent Neurologic Exam Details Deferred exam due to mental status Lab and Radiology Results Laboratory Laboratory Tests Test 03/26/17 14:22 03/27/17 15:03 03/28/17 06:45 White Blood Count 12.3 TH/MM3 10.5 TH/MM3 6.5 TH/MM3 Red Blood Count 4.44 MIL/MM3 4.17 MIL/MM3 4.20 MIL/MM3 Hemoglobin 11.7 GM/DL 11.5 GM/DL 10.9 GM/DL Hematocrit 36.3 % 33.2 % 33.2 % Mean Corpuscular Volume 81.8 FL 79.6 FL 79.0 FL Mean Corpuscular Hemoglobin 26.4 PG 27.6 PG 26.0 PG Mean Corpuscular Hemoglobin Concent 32.2 % 34.6 % 32.9 % Red Cell Distribution Width 16.5 % 16.3 % 16.2 % Platelet Count 161 TH/MM3 265 TH/MM3 313 TH/MM3 Mean Platelet Volume 8.7 FL 8.3 FL 8.7 FL Neutrophils (%) (Auto) 89.6 % 91.3 % 78.9 % Lymphocytes (%) (Auto) 3.8 % 3.2 % 8.0 % Monocytes (%) (Auto) 5.6 % 4.7 % 12.2 % Eosinophils (%) (Auto) 0.3 % 0.2 % 0.3 % Basophils (%) (Auto) 0.7 % 0.6 % 0.6 % Neutrophils # (Auto) 11.1 TH/MM3 9.6 TH/MM3 5.1 TH/MM3 Lymphocytes # (Auto) 0.5 TH/MM3 0.3 TH/MM3 0.5 TH/MM3 Monocytes # (Auto) 0.7 TH/MM3 0.5 TH/MM3 0.8 TH/MM3 Eosinophils # (Auto) 0.0 TH/MM3 0.0 TH/MM3 0.0 TH/MM3 Basophils # (Auto) 0.1 TH/MM3 0.1 TH/MM3 0.0 TH/MM3 CBC Comment DIFF FINAL DIFF FINAL DIFF FINAL Differential Comment Hematology Comments Erythrocyte Sedimentation Rate 44 mm/hr Laboratory Tests Test 03/26/17 14:22 03/27/17 15:03 03/28/17 07:10 Blood Urea Nitrogen 7 MG/DL 7 MG/DL 6 MG/DL Creatinine 0.35 MG/DL 0.24 MG/DL LESS THAN 0.15 MG/DL Random Glucose 272 MG/DL 125 MG/DL 91 MG/DL Total Protein 5.0 GM/DL Albumin 1.7 GM/DL 2.0 GM/DL 2.0 GM/DL Calcium Level 7.4 MG/DL 7.6 MG/DL 7.5 MG/DL Phosphorus Level 0.9 MG/DL 0.9 MG/DL 1.3 MG/DL Magnesium Level 1.3 MG/DL 1.8 MG/DL 1.8 MG/DL Alkaline Phosphatase 106 U/L Aspartate Amino Transf (AST/SGOT) 11 U/L Alanine Aminotransferase (ALT/SGPT) 11 U/L Total Bilirubin 0.2 MG/DL Sodium Level 131 MEQ/L 135 MEQ/L 138 MEQ/L Potassium Level 3.7 MEQ/L 3.4 MEQ/L 3.6 MEQ/L Chloride Level 105 MEQ/L 104 MEQ/L 104 MEQ/L Carbon Dioxide Level 13.9 MEQ/L 20.9 MEQ/L 24.8 MEQ/L Anion Gap 12 MEQ/L 10 MEQ/L 9 MEQ/L Estimat Glomerular Filtration Rate 200 ML/MIN 308 ML/MIN 531 ML/MIN Protein Corrected Calcium 8.6 MG/DL Lactic Acid Level 1.4 mmol/L Ammonia 24 MCMOL/L Microbiology Date/Time Source Procedure Growth Status 03/25/17 13:38 Blood Peripheral Aerobic Blood Culture - Preliminary NO GROWTH IN 3 DAYS Resulted 03/25/17 13:38 Blood Peripheral Anaerobic Blood Culture - Preliminary NO GROWTH IN 3 DAYS Resulted 03/25/17 13:34 Blood Peripheral Aerobic Blood Culture - Preliminary NO GROWTH IN 3 DAYS Resulted 03/25/17 13:34 Blood Peripheral Anaerobic Blood Culture - Preliminary NO GROWTH IN 3 DAYS Resulted 03/26/17 18:15 Cerebral Spinal Fluid Lumbar Puncture Fungal Smear - Final NO FUNGAL ELEMENTS SEEN. Resulted 03/26/17 18:15 Cerebral Spinal Fluid Lumbar Puncture Fungal Culture Pending Resulted 03/26/17 18:15 Cerebral Spinal Fluid Lumbar Puncture Acid Fast Stain - Final NO ACID FAST BACILLI SEEN Resulted 03/26/17 18:15 Cerebral Spinal Fluid Lumbar Puncture Mycobacterial Culture Pending Resulted 03/26/17 18:15 Cerebral Spinal Fluid Lumbar Puncture Gram Stain - Final Resulted 03/26/17 18:15 Cerebral Spinal Fluid Lumbar Puncture CSF Culture - Preliminary NO GROWTH IN 48 HOURS. Resulted Radiology Last Impressions Brain MRI 03/26/17 1605 Signed Impressions: Service Date/Time: Sunday, March 26, 2017 18:55 - CONCLUSION: 1. No acute infarct, acute hemorrhage, midline shift or extra-axial fluid collections. 2. Severe diffuse periventricular white matter signal abnormalities and diffuse pontine signal abnormality which is nonspecific but unchanged compared to November 2016. 3. No abnormal enhancing lesion noted. 4. 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 Jonny Fine MD ADDENDUM: A focal cluster of subcentimeter restricted diffusion seen in the left parietal lobe white matter, series 7 image 41, compatible with a localized acute or subacute infarct. Marcus Devi MD Lumbar Puncture Fluoroscopy 03/26/17 0000 Signed Impressions: Service Date/Time: Sunday, March 26, 2017 19:11 - CONCLUSION: Uncomplicated fluoroscopically guided lumbar puncture. Mukul Gary Jr., MD Abdomen X-Ray 03/25/17 0000 Signed Impressions: Service Date/Time: Saturday, March 25, 2017 11:26 - CONCLUSION: NG tube overlying the midline esophagus with the proximal port well above the level of the gastroesophageal junction. Recommend advancement approximately 10 cm. Aditi Rodriguez MD Head CT 03/22/17 0000 Signed Impressions: Service Date/Time: February 20:16 - CONCLUSION: No evidence of acute cardiopulmonary disease. Prominent chronic white matter changes for a patient this age. Marcus Devi MD Abdomen/Pelvis CT 03/22/17 0000 Signed Impressions: Service Date/Time: February 20:18 - CONCLUSION: 1. Mild, diffuse colitis in the proper clinical setting. This is nonspecific, presumably infectious or inflammatory. No abscess, perforation or obstruction. 2. Chronic/unchange findings otherwise including multiple nonacute fractures and a tiny nonobstructing stone of the right kidney. Marcus Devi MD Chest X-Ray 03/21/17 1006 Signed Impressions: Service Date/Time: Tuesday, March 21, 2017 10:16 - CONCLUSION: Right midlung and left basilar scarring versus minimal infiltrates. Garret Weber MD Toe X-Ray 03/21/17 0000 Signed Impressions: Service Date/Time: Tuesday, March 21, 2017 15:45 - CONCLUSION: 1. 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 2. Prior compression screw fixation of the first MTP. 3. No acute fracture. Jorden Nina MD Assessment/Plan Problem List: (1) Onycholysis of toenail Status: Acute (2) Subungual hematoma of foot Status: Acute (3) Acute metabolic encephalopathy Status: Acute Additional Plans & Procedures PLAN: Ordered arterial segmental Dopplers to rule out peripheral vascular disease. Lac-Hydrin lotion twice a day to skin. Elevate heels off bed at all times. I will return tomorrow and then cut the big toenail back. Continue to follow Problem Qualifiers (1) Subungual hematoma of foot: Qualified Codes: S90.222A - Contusion of left lesser toe(s) with damage to nail , initial encounter Garret Parks DPM Mar 28, 2017 12:35
--- NOTE | 2017-03-28 12:54 | HHI.IDPN ---
Subjective Subjective Remarks is a 46 y/o CM with PMHx of DM2, HTN, ? 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 secondary to prednisone. She used to walk 6 years back then subsequently became wheel chair bound for trips. The patient is now in crippling pain secondary to RA constant neck pain inability to move neck. She sleeps in her wheel chair and has not slept in bed for years. Patient is mostly wheel chair bound but is able to walk short distances. During that November admission in 2016 patient had bilateral lower extremity cellulitis as well as diagnosed with C. difficile during that admission. Meningoencephalitis workup was negative. Patient follows at baseline with [facility] (Rheum) and (ID). 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 She also has hardware in her cervical spine which unfortunately cannot be removed due to stability issues. After her November admission patient was discharged home and was back to her normal self which is sleeping in her wheelchair and needing assistance to even go to the bathroom. Approximately 2 weeks back patient's mother noticed worsening mental status and patient not eating much. Approximately a day prior to admission patient apparently had fever 101 associated with rigors and hence was brought to the hospital for further evaluation. Patient met criteria for sepsis on admission. Blood cultures done on admission are positive for gram-negative rods and infectious disease is consulted for the same. Overnight events reviewed Fevers defervescing after Cefepime changed to Azactam IV, will follow trend. Repeat blood cultures pending. No rash No diarrhea Much more awake appears to be close to baseline. Pain meds held overnight per Neurology and this appears to have helped. Left great toe with avulsed nail and dried blood. Erythema and tenderness new. MRI brain with chronic white matter changes. CSF studies reviewed doubt new infection. Possible chronic changes from Inflammatory process. Antibiotics Azactam IV Vanco IV Lines Line sites with no e.o infection Past Medical History DM HTN MS RA, immunocompromised Questionable CHF Osteoporosis Past Surgical History Cervical fusion 2007 Allergies: Coded Allergies: hydromorphone (Verified Allergy, Unknown, 03/21/17) metformin (Verified Allergy, Unknown, 03/21/17) Objective . Vital Signs Date Time Temp Pulse Resp B/P (MAP) Pulse Ox O2 Delivery O2 Flow Rate FiO2 03/28/17 12:09 97.4 99 18 177/91 (119) 97 03/28/17 08:01 98.6 117 16 176/87 (116) 93 03/28/17 08:00 124 03/28/17 04:00 97.1 99 18 147/80 (102) 96 03/28/17 03:58 101 03/28/17 00:00 95 03/28/17 00:00 97.2 96 20 146/76 (99) 95 03/27/17 22:56 Room Air 03/27/17 20:00 98.2 113 19 139/76 (97) 96 03/27/17 17:05 97.6 100 20 168/79 (108) 99 03/27/17 16:00 99 03/27/17 15:47 Room Air . Laboratory Tests Test 03/26/17 14:22 03/27/17 15:03 03/28/17 06:45 White Blood Count 12.3 TH/MM3 10.5 TH/MM3 6.5 TH/MM3 Red Blood Count 4.44 MIL/MM3 4.17 MIL/MM3 4.20 MIL/MM3 Hemoglobin 11.7 GM/DL 11.5 GM/DL 10.9 GM/DL Hematocrit 36.3 % 33.2 % 33.2 % Mean Corpuscular Volume 81.8 FL 79.6 FL 79.0 FL Mean Corpuscular Hemoglobin 26.4 PG 27.6 PG 26.0 PG Mean Corpuscular Hemoglobin Concent 32.2 % 34.6 % 32.9 % Red Cell Distribution Width 16.5 % 16.3 % 16.2 % Platelet Count 161 TH/MM3 265 TH/MM3 313 TH/MM3 Mean Platelet Volume 8.7 FL 8.3 FL 8.7 FL Neutrophils (%) (Auto) 89.6 % 91.3 % 78.9 % Lymphocytes (%) (Auto) 3.8 % 3.2 % 8.0 % Monocytes (%) (Auto) 5.6 % 4.7 % 12.2 % Eosinophils (%) (Auto) 0.3 % 0.2 % 0.3 % Basophils (%) (Auto) 0.7 % 0.6 % 0.6 % Neutrophils # (Auto) 11.1 TH/MM3 9.6 TH/MM3 5.1 TH/MM3 Lymphocytes # (Auto) 0.5 TH/MM3 0.3 TH/MM3 0.5 TH/MM3 Monocytes # (Auto) 0.7 TH/MM3 0.5 TH/MM3 0.8 TH/MM3 Eosinophils # (Auto) 0.0 TH/MM3 0.0 TH/MM3 0.0 TH/MM3 Basophils # (Auto) 0.1 TH/MM3 0.1 TH/MM3 0.0 TH/MM3 CBC Comment DIFF FINAL DIFF FINAL DIFF FINAL Differential Comment Hematology Comments Erythrocyte Sedimentation Rate 44 mm/hr Laboratory Tests Test 03/26/17 14:22 03/27/17 15:03 03/28/17 07:10 Blood Urea Nitrogen 7 MG/DL 7 MG/DL 6 MG/DL Creatinine 0.35 MG/DL 0.24 MG/DL LESS THAN 0.15 MG/DL Random Glucose 272 MG/DL 125 MG/DL 91 MG/DL Total Protein 5.0 GM/DL Albumin 1.7 GM/DL 2.0 GM/DL 2.0 GM/DL Calcium Level 7.4 MG/DL 7.6 MG/DL 7.5 MG/DL Phosphorus Level 0.9 MG/DL 0.9 MG/DL 1.3 MG/DL Magnesium Level 1.3 MG/DL 1.8 MG/DL 1.8 MG/DL Alkaline Phosphatase 106 U/L Aspartate Amino Transf (AST/SGOT) 11 U/L Alanine Aminotransferase (ALT/SGPT) 11 U/L Total Bilirubin 0.2 MG/DL Sodium Level 131 MEQ/L 135 MEQ/L 138 MEQ/L Potassium Level 3.7 MEQ/L 3.4 MEQ/L 3.6 MEQ/L Chloride Level 105 MEQ/L 104 MEQ/L 104 MEQ/L Carbon Dioxide Level 13.9 MEQ/L 20.9 MEQ/L 24.8 MEQ/L Anion Gap 12 MEQ/L 10 MEQ/L 9 MEQ/L Estimat Glomerular Filtration Rate 200 ML/MIN 308 ML/MIN 531 ML/MIN Protein Corrected Calcium 8.6 MG/DL Lactic Acid Level 1.4 mmol/L Ammonia 24 MCMOL/L Microbiology Date/Time Source Procedure Growth Status 03/25/17 13:38 Blood Peripheral Aerobic Blood Culture - Preliminary NO GROWTH IN 3 DAYS Resulted 03/25/17 13:38 Blood Peripheral Anaerobic Blood Culture - Preliminary NO GROWTH IN 3 DAYS Resulted 03/25/17 13:34 Blood Peripheral Aerobic Blood Culture - Preliminary NO GROWTH IN 3 DAYS Resulted 03/25/17 13:34 Blood Peripheral Anaerobic Blood Culture - Preliminary NO GROWTH IN 3 DAYS Resulted 03/26/17 18:15 Cerebral Spinal Fluid Lumbar Puncture Fungal Smear - Final NO FUNGAL ELEMENTS SEEN. Resulted 03/26/17 18:15 Cerebral Spinal Fluid Lumbar Puncture Fungal Culture Pending Resulted 03/26/17 18:15 Cerebral Spinal Fluid Lumbar Puncture Acid Fast Stain - Final NO ACID FAST BACILLI SEEN Resulted 03/26/17 18:15 Cerebral Spinal Fluid Lumbar Puncture Mycobacterial Culture Pending Resulted 03/26/17 18:15 Cerebral Spinal Fluid Lumbar Puncture Gram Stain - Final Resulted 03/26/17 18:15 Cerebral Spinal Fluid Lumbar Puncture CSF Culture - Preliminary NO GROWTH IN 48 HOURS. Resulted Imaging Last Impressions Head CT 03/22/17 0000 Signed Impressions: Service Date/Time: February 20:16 - CONCLUSION: No evidence of acute cardiopulmonary disease. Prominent chronic white matter changes for a patient this age. Marcus Devi MD Abdomen/Pelvis CT 03/22/17 0000 Signed Impressions: Service Date/Time: February 20:18 - CONCLUSION: 1. Mild, diffuse colitis in the proper clinical setting. This is nonspecific, presumably infectious or inflammatory. No abscess, perforation or obstruction. 2. Chronic/unchange findings otherwise including multiple nonacute fractures and a tiny nonobstructing stone of the right kidney. Marcus Devi MD Chest X-Ray 03/21/17 1006 Signed Impressions: Service Date/Time: Tuesday, March 21, 2017 10:16 - CONCLUSION: Right midlung and left basilar scarring versus minimal infiltrates. Garret Weber MD Toe X-Ray 03/21/17 0000 Signed Impressions: Service Date/Time: Tuesday, March 21, 2017 15:45 - CONCLUSION: 1. 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 2. Prior compression screw fixation of the first MTP. 3. No acute fracture. Jorden Nina MD Physical Exam GENERAL: Obese, Cushingoid appearing patient. No cardiopulm distress. SKIN: Joints with significant deformities [place] of upper extremities. Upper extremity again difficult to assess but area of chronic scabbing with surrounding erythema. HEAD: Atraumatic. Normocephalic. No temporal or scalp tenderness. EYES: Pupils equal round and reactive. Extraocular motions intact. No scleral icterus. No injection or drainage. ENT: Nose without bleeding, purulent drainage. NECK: Trachea midline. Large neck. No lymphadenopathy. Hardware in neck ? chronic neck stiffness based on prior exams. CARDIOVASCULAR: Regular rate and rhythm without murmurs. RESPIRATORY: Clear to auscultation. Breath sounds equal bilaterally. No wheezes , rales, or rhonchi. GASTROINTESTINAL: Abdomen soft, non-tender, nondistended. MUSCULOSKELETAL: Extremities without clubbing, cyanosis, or edema. Left great toe with avulsed nail and dried blood. Erythema and tenderness new. Right great toe with erythema on dorsal aspect. NEUROLOGICAL: Somnolent, not following commands, moans and groans. Opens eyes spontaneously. Psych: cooperative IV line sites with no e.o infection. Assessment & Plan Remarks Sepsis present on admission. Morganella bacteremia appears transient. GP bacteremia which is prelim ID as anaerobe. Left great toe osteomyelitis/septic emboli. Right great toe septic emboli vs cellulitis. Pneumonia CAP vs Possible aspiration pneumonia Rheumatoid arthritis on immunosuppressants, Immune compromised ? multiple sclerosis. h/o Cdiff Acute metabolic encephalopathy: sepsis, subclinical seizures breakthrough, ? new stroke. Recs: Continue Azactam IV (Morganella bacteremia) Continue Flagyl IV (anaerobic bacteremia) Continue oral vanco (recently treated for Cdiff) Per Neuro MRI brain with 2 new strokes. Ordered MRV and MRA. Will add MRI C spine to look for any new spine hardware infection. CSF studies reviewed doubt new infection. Possible chronic changes from Inflammatory process. CSF cultures negative. d/w podiatry : Rt toe nail avulsion not osteomyelitis. Overall rt toe appears improved. Will get an ECHO since the risk of neck issues given cervical fusion, RA and infection history and chronic antibiotic suppression. would like TOMÁS due to 2 new strokes. [email or web address] to d.w Cardiology. follow cultures follow clinically. [email or web address] Priscilla Murillo MD Mar 28, 2017 12:54
--- NOTE | 2017-03-28 13:42 | HHI.PR ---
Subjective Remarks The patient was about to eat lunch. She said she wanted to go home. She said that she lives in pain. Discussed with nursing at the bedside. Objective Vitals Vital Signs Date Time Temp Pulse Resp B/P (MAP) Pulse Ox O2 Delivery O2 Flow Rate FiO2 03/28/17 12:09 97.4 99 18 177/91 (119) 97 03/28/17 12:00 106 03/28/17 08:01 98.6 117 16 176/87 (116) 93 03/28/17 08:00 124 03/28/17 04:00 97.1 99 18 147/80 (102) 96 03/28/17 03:58 101 03/28/17 00:00 95 03/28/17 00:00 97.2 96 20 146/76 (99) 95 03/27/17 22:56 Room Air 03/27/17 20:00 98.2 113 19 139/76 (97) 96 03/27/17 17:05 97.6 100 20 168/79 (108) 99 03/27/17 16:00 99 03/27/17 15:47 Room Air I/O 03/27/17 03/27/17 03/27/17 03/28/17 03/28/17 03/28/17 07:00 15:00 23:00 07:00 15:00 23:00 Intake Total 1205 ml 2677 ml Output Total 4 ml Balance 1201 ml 2677 ml Intake Oral 0 ml IV Total 1205 ml 1637 ml Tube Feeding 240 ml Other 800 ml Output Urine Total 4 ml # Voids 100 4 5 # Bowel Movements 3 3 2 Result Diagram: 03/28/17 0645 03/28/17 0710 Imaging Last Impressions Brain MRI 03/26/17 1605 Signed Impressions: Service Date/Time: Sunday, March 26, 2017 18:55 - CONCLUSION: 1. No acute infarct, acute hemorrhage, midline shift or extra-axial fluid collections. 2. Severe diffuse periventricular white matter signal abnormalities and diffuse pontine signal abnormality which is nonspecific but unchanged compared to November 2016. 3. No abnormal enhancing lesion noted. 4. 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 Jonny Fine MD ADDENDUM: A focal cluster of subcentimeter restricted diffusion seen in the left parietal lobe white matter, series 7 image 41, compatible with a localized acute or subacute infarct. Marcus Devi MD Lumbar Puncture Fluoroscopy 03/26/17 0000 Signed Impressions: Service Date/Time: Sunday, March 26, 2017 19:11 - CONCLUSION: Uncomplicated fluoroscopically guided lumbar puncture. Mukul Gary Jr., MD Abdomen X-Ray 03/25/17 0000 Signed Impressions: Service Date/Time: Saturday, March 25, 2017 11:26 - CONCLUSION: NG tube overlying the midline esophagus with the proximal port well above the level of the gastroesophageal junction. Recommend advancement approximately 10 cm. Aditi Rodriguez MD Head CT 03/22/17 0000 Signed Impressions: Service Date/Time: February 20:16 - CONCLUSION: No evidence of acute cardiopulmonary disease. Prominent chronic white matter changes for a patient this age. Marcus Devi MD Abdomen/Pelvis CT 03/22/17 0000 Signed Impressions: Service Date/Time: February 20:18 - CONCLUSION: 1. Mild, diffuse colitis in the proper clinical setting. This is nonspecific, presumably infectious or inflammatory. No abscess, perforation or obstruction. 2. Chronic/unchange findings otherwise including multiple nonacute fractures and a tiny nonobstructing stone of the right kidney. Marcus Devi MD Chest X-Ray 03/21/17 1006 Signed Impressions: Service Date/Time: Tuesday, March 21, 2017 10:16 - CONCLUSION: Right midlung and left basilar scarring versus minimal infiltrates. Garret Weber MD Toe X-Ray 03/21/17 0000 Signed Impressions: Service Date/Time: Tuesday, March 21, 2017 15:45 - CONCLUSION: 1. 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 2. Prior compression screw fixation of the first MTP. 3. No acute fracture. Jorden Nnia MD Objective Remarks GENERAL: Appears comfortable. Patient awake, alert. SKIN: Warm and dry. HEAD: Normocephalic. EYES: No scleral icterus. No injection or drainage. NECK: Supple, trachea midline. No JVD. CARDIOVASCULAR: Tachycardic without murmurs, gallops, or rubs. RESPIRATORY: Breath sounds equal bilaterally. No accessory muscle use. GASTROINTESTINAL: Abdomen soft, non-tender, nondistended. MUSCULOSKELETAL: No cyanosis, or edema. Lower extremities tender to palpation. BACK: Nontender without obvious deformity. No CVA tenderness. PSYCH: Calm. Procedures NONE Medications and IVs Current Medications Medications (Trade) Dose Ordered Sig/Fuentes Route Start Time Stop Time Status Last Admin (NS Flush) 2 ml UNSCH PRN IV FLUSH 03/21/17 13:00 03/23/17 08:13 (NS Flush) 2 ml BID IV FLUSH 03/21/17 21:00 03/28/17 11:10 (Narcan Inj) 0.4 mg UNSCH PRN IV PUSH 03/21/17 13:00 (Lactinex) 1 tab TID PO 03/21/17 18:00 03/28/17 13:55 (Pepcid) 20 mg Q12HR PO 03/21/17 21:00 03/28/17 11:11 (VANCOMYCIN for oral use only) 500 mg QID PO 03/21/17 18:30 Future Hold 03/23/17 22:34 (Free Water) VOLUME OF WATER: 200 ML... Q4H PO 03/21/17 18:00 03/28/17 13:55 (Tylenol) 650 mg Q4H PRN PO 03/21/17 19:45 03/26/17 13:42 (Zofran Inj) 4 mg Q6HR PRN IV PUSH 03/22/17 10:45 03/22/17 13:00 (Lopressor) 50 mg Q12HR PO 03/24/17 09:00 03/28/17 11:11 (Vasotec Inj) 1.25 mg Q6H PRN IV PUSH 03/23/17 13:45 (Catapres) 0.1 mg Q6H PRN PO 03/23/17 13:45 Metronidazole 100 ml @ 100 mls/hr Q8H IV 03/25/17 04:00 03/28/17 13:54 (Keppra Liq) 500 mg Q12H NG 03/25/17 23:00 03/28/17 13:54 (Deltasone) 10 mg BID NG 03/26/17 21:00 03/28/17 11:10 (Levemir Inj) 8 units Q12HR SQ 03/26/17 21:00 03/28/17 11:11 (NovoLOG SUPPLEMENTAL SCALE) 1 ACHS SLIDING SCALE SQ 03/26/17 17:00 03/27/17 08:32 (D50w (Vial) Inj) 50 ml UNSCH PRN IV PUSH 03/26/17 16:30 (Glucagon Inj) 1 mg UNSCH PRN OTHER 03/26/17 16:30 Aztreonam 2000 mg/ Sodium Chloride 100 ml @ 200 mls/hr Q8H IV 03/26/17 20:00 03/28/17 13:54 (Lac-Hydrin 12% Lotion) 1 applic BID TOPICAL 03/28/17 21:00 Potassium Phosphate 30 mmol/ Sodium Chloride 260 ml @ 43.333 mls/ hr ONCE ONCE IV 03/28/17 13:45 03/28/17 19:44 UNV A/P Assessment and Plan Right middle lobe pneumonia/ Sepsis The pt had tachycardia and fevers. - Continue IV antibiotics as per ID recommendations. - follow culture data. Hypertension Likely exacerbated by pain. - Continue current regimen. Pericardial effusion history Pericardial tamponade- s/p window. - Follow clinically. RA/ Osteoporosis/ immunocompromised Chronic. - continue steroids and monitor. Acute metabolic encephalopathy/ acute CVA History of CVA/ Acute Expressive aphasia/ Chronic left-sided weakness. Encephalopathy improved with discontinuation of gabapentin and increase of steroids to stress dose. HSV PCR of CSF pending. Appreciate neurology and ID assistance. Discussed with infectious disease. MRI with left parietal lobe acute infarct. - Continue to hold gabapentin. - continue steroids. - Follow up with neurology. Seizure disorder Neurology consult appreciated. - Continue Keppra,. Diabetes mellitus type 2 Glucose much improved. - Continue diabetic diet. - scheduled Levemir and sliding scale. Right first toe infection Podiatry consult appreciated. - Wound care per podiatry. Diarrhea Likely secondary to tube feeding. - will consult GI for further workup. Malnutrition Not tolerating by mouth intake. - Swallow eval. Diet ordered. - d/c NGT if tolerating diet. Hypophosphatemia Likely secondary to decreased by mouth intake. - Replete and monitor. DVT prophylaxis: Heparin Hans Salgado DO Mar 28, 2017 13:42
--- NOTE | 2017-03-28 13:47 | HHI.HCPN ---
Reason for visit a. To assist with evaluation and management of symptoms including: Pain, debility. b. To assist medical decision maker(s) with: better understanding of current medical conditions; weighing benefits/burdens of medical treatment options; making medical treatment decisions. . Subjective/Interval History Palliative care follow-up for further clarification of goals of care, family support. Patient seen in her room. She was awake, alert to self, confused as to place and situation. Family reports that patient has been experiencing visual hallucinations. Patient remains afebrile, hypertensive with SBP in the 170s. Patient endorsing generalized pain, mainly to bilateral shoulders. Endorsing intermittent nausea but no vomiting. Multiple episodes of bowel incontinence since yesterday. GI consultation pending. Patient has been seen by speech therapy, diet adjusted to pured with thin liquids. Neurology, Dr. Vergara following, pending MRA of brain and carotid. Podiatry, Dr. Cheema consulted for evaluation of left great toe, pending arterial segmental dopplers to rule out peripheral vascular disease. Infectious disease, Dr. Corey following, pending repeat blood cultures and CSF culture. Lengthy conversation with patient's family to include daughter Karolina, mother Jemima and pt's anika Tim. Medical update provided to include the above recommendations. Reviewed once more likely trajectory of disease. Family understands that patient will continue to have repeated infections given general debility, multiple ongoing chronic comorbidities, autoimmune disorders and underlying immunocompromise. I have discussed possibility of further setbacks and progressive overall decline. Family asking appropriate questions regarding home health vs retirement facility vs hospice services. Hospice philosophy and benefits reviewed at length. Family electing to continue current aggressive management short of no code, maximize patient's medical management. However, wishing to receive more information regarding hospice at home. Hospice referral has been sent. Case discussed with Dr. Amada Corey. . Family/friend interactions See interval note. . Advance Directives Living Will: Never completed Health Care Surrogate: Never completed Durable Power of Dairy Manufacturing Technologist: Never completed Advance Directive Specifics Health Care Surrogate(s): No advance directives completed. As per [place] statute, healthcare proxy decision maker falls to patient's daughter Karolina Harris. . Significant change in goals: Goals remain aggressive short of no code. . Objective Vital Signs Date Time Temp Pulse Resp B/P (MAP) Pulse Ox O2 Delivery O2 Flow Rate FiO2 03/28/17 12:09 97.4 99 18 177/91 (119) 97 03/28/17 12:00 106 03/28/17 08:01 98.6 117 16 176/87 (116) 93 03/28/17 08:00 124 03/28/17 04:00 97.1 99 18 147/80 (102) 96 03/28/17 03:58 101 03/28/17 00:00 95 03/28/17 00:00 97.2 96 20 146/76 (99) 95 03/27/17 22:56 Room Air 03/27/17 20:00 98.2 113 19 139/76 (97) 96 03/27/17 17:05 97.6 100 20 168/79 (108) 99 03/27/17 16:00 99 03/27/17 15:47 Room Air Intake & Output 03/28/17 03/28/17 07:00 19:00 Intake Total 2677 ml Balance 2677 ml IV Total 1637 ml Tube Feeding 240 ml Other 800 ml # Voids 5 # Bowel Movements 2 Physical Exam CONSTITUTIONAL/GENERAL: This is an adequately nourished patient in no acute distress. TUBES/LINES/DRAINS: PIV's. NG to left nare. SKIN: No jaundice, rashes, or lesions. Ecchymoses on upper and bilateral lower extremities. Skin temperature appropriate. Not diaphoretic. HEAD: Atraumatic. Normocephalic. EYES: Pupils equal and round and reactive. No scleral icterus. No injection or drainage. ENT: Hearing grossly normal. Nose without bleeding or purulent drainage. Moist oral mucosa. NECK: Trachea midline. Supple, nontender. Cushingoid appearing. CARDIOVASCULAR: Regular rate and rhythm without murmurs, gallops, or rubs. RESPIRATORY/CHEST: Symmetric, unlabored respirations. Clear to auscultation. Breath sounds equal bilaterally. No wheezes, rales, or rhonchi. GASTROINTESTINAL: Abdomen soft, non-tender, nondistended. No hepato-splenomegaly , or palpable masses. No guarding. Bowel sounds present. GENITOURINARY: Without palpable bladder distension. Ocampo catheter in place. MUSCULOSKELETAL: Extremities without clubbing, cyanosis, or edema. RA related deformities to bilateral upper and lower extremities. NEUROLOGICAL: Alert and oriented x self. Confused as to place, time and situation. Verbal, able to communicate needs. PSYCHIATRIC: Appears calm. However, visual hallucinations reported. . Diagnostic Tests Laboratory Laboratory Tests Test 03/25/17 13:38 03/26/17 14:22 03/26/17 16:20 03/26/17 18:15 White Blood Count 12.1 TH/MM3 (4.0-11.0) 12.3 TH/MM3 (4.0-11.0) Red Blood Count 5.24 MIL/MM3 (4.00-5.30) 4.44 MIL/MM3 (4.00-5.30) Hemoglobin 14.0 GM/DL (11.6-15.3) 11.7 GM/DL (11.6-15.3) Hematocrit 43.4 % (35.0-46.0) 36.3 % (35.0-46.0) Mean Corpuscular Volume 82.7 FL (80.0-100.0) 81.8 FL (80.0-100.0) Mean Corpuscular Hemoglobin 26.6 PG (27.0-34.0) 26.4 PG (27.0-34.0) Mean Corpuscular Hemoglobin Concent 32.2 % (32.0-36.0) 32.2 % (32.0-36.0) Red Cell Distribution Width 16.6 % (11.6-17.2) 16.5 % (11.6-17.2) Platelet Count 189 TH/MM3 (150-450) 161 TH/MM3 (150-450) Mean Platelet Volume 8.4 FL (7.0-11.0) 8.7 FL (7.0-11.0) CBC Comment AUTO DIFF DIFF FINAL Differential Total Cells Counted 100 Neutrophils % (Manual) 72 % (16-70) Band Neutrophils % 13 % (0-6) Lymphocytes % 8 % (9-44) Monocytes % 6 % (0-8) Eosinophils % 1 % (0-4) Neutrophils # (Manual) 10.3 TH/MM3 (1.8-7.7) Differential Comment FINAL DIFF MANUAL Platelet Estimate NORMAL (NORMAL) Platelet Morphology Comment NORMAL (NORMAL) Red Cell Morphology Comment NORMAL (NORMAL) Blood Urea Nitrogen 6 MG/DL (7-18) 7 MG/DL (7-18) Creatinine 0.53 MG/DL (0.50-1.00) 0.35 MG/DL (0.50-1.00) Random Glucose 263 MG/DL (74-106) 272 MG/DL (74-106) Total Protein 6.2 GM/DL (6.4-8.2) 5.0 GM/DL (6.4-8.2) Albumin 2.4 GM/DL (3.4-5.0) 1.7 GM/DL (3.4-5.0) Calcium Level 8.3 MG/DL (8.5-10.1) 7.4 MG/DL (8.5-10.1) Phosphorus Level 1.2 MG/DL (2.5-4.9) 0.9 MG/DL (2.5-4.9) Magnesium Level 1.4 MG/DL (1.5-2.5) 1.3 MG/DL (1.5-2.5) Alkaline Phosphatase 134 U/L (45-117) 106 U/L (45-117) Aspartate Amino Transf (AST/SGOT) 11 U/L (15-37) 11 U/L (15-37) Alanine Aminotransferase (ALT/SGPT) 17 U/L (10-53) 11 U/L (10-53) Total Bilirubin 0.4 MG/DL (0.2-1.0) 0.2 MG/DL (0.2-1.0) Sodium Level 131 MEQ/L (136-145) 131 MEQ/L (136-145) Potassium Level 3.3 MEQ/L (3.5-5.1) 3.7 MEQ/L (3.5-5.1) Chloride Level 102 MEQ/L (98-107) 105 MEQ/L (98-107) Carbon Dioxide Level 14.3 MEQ/L (21.0-32.0) 13.9 MEQ/L (21.0-32.0) Anion Gap 15 MEQ/L (5-15) 12 MEQ/L (5-15) Estimat Glomerular Filtration Rate 124 ML/MIN (>89) 200 ML/MIN (>89) Hemoglobin A1c 10.0 % (4.3-6.0) Free Thyroxine 1.57 NG/DL (0.76-1.46) Thyroid Stimulating Hormone 3rd Gen 2.320 uIU/ML (0.358-3.740) Neutrophils (%) (Auto) 89.6 % (16.0-70.0) Lymphocytes (%) (Auto) 3.8 % (9.0-44.0) Monocytes (%) (Auto) 5.6 % (0.0-8.0) Eosinophils (%) (Auto) 0.3 % (0.0-4.0) Basophils (%) (Auto) 0.7 % (0.0-2.0) Neutrophils # (Auto) 11.1 TH/MM3 (1.8-7.7) Lymphocytes # (Auto) 0.5 TH/MM3 (1.0-4.8) Monocytes # (Auto) 0.7 TH/MM3 (0-0.9) Eosinophils # (Auto) 0.0 TH/MM3 (0-0.4) Basophils # (Auto) 0.1 TH/MM3 (0-0.2) Hematology Comments Protein Corrected Calcium 8.6 MG/DL (8.5-10.1) Blood Gas Puncture Site RT RADIAL Blood Gas Patient Temperature 98.6 Blood Gas HCO3 14 mmol/L (22-26) Blood Gas Base Excess -11.3 mmol/L (-2-2) Blood Gas Oxygen Saturation 94 % (90-100) Arterial Blood pH 7.33 (7.380-7.420) Arterial Blood Partial Pressure CO2 26 mmHg (38-42) Arterial Blood Partial Pressure O2 84 mmHg (61-120) Arterial Blood Oxygen Content 14.2 Vol % (12.0-20.0) Arterial Blood Carboxyhemoglobin 1.0 % (0-4) Arterial Blood Methemoglobin 1.3 % (0-2) Blood Gas Hemoglobin 10.7 G/DL (12.0-16.0) Oxygen Delivery Device ROOM AIR CSF Volume (Tube 1) 2.3 ML CSF Supernatant Color (tube 1) CLEAR (CLEAR) CSF Gross Blood (Tube 1) 0 (0) CSF WBC (Tube 1) 36 /MM3 (0-10) CSF RBC (Tube 1) 7 /MM3 (NONE) CSF Volume (Tube 2) 2.0 ML CSF Supernatant Color (tube 2) CLEAR (CLEAR) CSF Gross Blood (Tube 2) 0 (0) CSF Volume (Tube 3) 2.2 ML CSF Supernatant Color (tube 3) CLEAR (CLEAR) CSF Gross Blood (Tube 3) 0 (0) CSF Volume (Tube 4) 3.0 ML CSF Supernatant Color (tube 4) CLEAR (CLEAR) CSF Gross Blood (Tube 4) 0 (0) CSF WBC (Tube 4) 41 /MM3 (0-10) CSF RBC (Tube 4) 7 /MM3 (NONE) CSF Neutrophils 15 % CSF Lymphocytes 30 % CSF Monocytes 17 % CSF Plasma Cells 2 % CSF Histiocytes 36 % CSF Glucose 168 MG/DL (40-80) CSF Total Protein 135.6 MG/DL (15.0-45.0) Herpes Simplex Virus I DNA (PCR) Negative (Negative) Herpes Simplex Virus II DNA (PCR) Negative (Negative) Test 03/27/17 15:03 03/28/17 06:45 03/28/17 07:10 White Blood Count 10.5 TH/MM3 (4.0-11.0) 6.5 TH/MM3 (4.0-11.0) Red Blood Count 4.17 MIL/MM3 (4.00-5.30) 4.20 MIL/MM3 (4.00-5.30) Hemoglobin 11.5 GM/DL (11.6-15.3) 10.9 GM/DL (11.6-15.3) Hematocrit 33.2 % (35.0-46.0) 33.2 % (35.0-46.0) Mean Corpuscular Volume 79.6 FL (80.0-100.0) 79.0 FL (80.0-100.0) Mean Corpuscular Hemoglobin 27.6 PG (27.0-34.0) 26.0 PG (27.0-34.0) Mean Corpuscular Hemoglobin Concent 34.6 % (32.0-36.0) 32.9 % (32.0-36.0) Red Cell Distribution Width 16.3 % (11.6-17.2) 16.2 % (11.6-17.2) Platelet Count 265 TH/MM3 (150-450) 313 TH/MM3 (150-450) Mean Platelet Volume 8.3 FL (7.0-11.0) 8.7 FL (7.0-11.0) Neutrophils (%) (Auto) 91.3 % (16.0-70.0) 78.9 % (16.0-70.0) Lymphocytes (%) (Auto) 3.2 % (9.0-44.0) 8.0 % (9.0-44.0) Monocytes (%) (Auto) 4.7 % (0.0-8.0) 12.2 % (0.0-8.0) Eosinophils (%) (Auto) 0.2 % (0.0-4.0) 0.3 % (0.0-4.0) Basophils (%) (Auto) 0.6 % (0.0-2.0) 0.6 % (0.0-2.0) Neutrophils # (Auto) 9.6 TH/MM3 (1.8-7.7) 5.1 TH/MM3 (1.8-7.7) Lymphocytes # (Auto) 0.3 TH/MM3 (1.0-4.8) 0.5 TH/MM3 (1.0-4.8) Monocytes # (Auto) 0.5 TH/MM3 (0-0.9) 0.8 TH/MM3 (0-0.9) Eosinophils # (Auto) 0.0 TH/MM3 (0-0.4) 0.0 TH/MM3 (0-0.4) Basophils # (Auto) 0.1 TH/MM3 (0-0.2) 0.0 TH/MM3 (0-0.2) CBC Comment DIFF FINAL DIFF FINAL Differential Comment Erythrocyte Sedimentation Rate 44 mm/hr (0-20) Blood Urea Nitrogen 7 MG/DL (7-18) 6 MG/DL (7-18) Creatinine 0.24 MG/DL (0.50-1.00) LESS THAN 0.15 MG/DL Random Glucose 125 MG/DL (74-106) 91 MG/DL (74-106) Albumin 2.0 GM/DL (3.4-5.0) 2.0 GM/DL (3.4-5.0) Calcium Level 7.6 MG/DL (8.5-10.1) 7.5 MG/DL (8.5-10.1) Phosphorus Level 0.9 MG/DL (2.5-4.9) 1.3 MG/DL (2.5-4.9) Magnesium Level 1.8 MG/DL (1.5-2.5) 1.8 MG/DL (1.5-2.5) Sodium Level 135 MEQ/L (136-145) 138 MEQ/L (136-145) Potassium Level 3.4 MEQ/L (3.5-5.1) 3.6 MEQ/L (3.5-5.1) Chloride Level 104 MEQ/L (98-107) 104 MEQ/L (98-107) Carbon Dioxide Level 20.9 MEQ/L (21.0-32.0) 24.8 MEQ/L (21.0-32.0) Anion Gap 10 MEQ/L (5-15) 9 MEQ/L (5-15) Estimat Glomerular Filtration Rate 308 ML/MIN (>89) 531 ML/MIN (>89) Lactic Acid Level 1.4 mmol/L (0.4-2.0) Ammonia 24 MCMOL/L (11-32) Blood Herpes Simplex Virus I (PCR) Negative (Negative) Blood Herpes Simplex Virus II (PCR) Negative (Negative) Result Diagram: 03/28/17 0645 03/28/17 0710 Microbiology Microbiology Date/Time Source Procedure Growth Status 03/25/17 13:38 Blood Peripheral Aerobic Blood Culture - Preliminary NO GROWTH IN 3 DAYS Resulted 03/25/17 13:38 Blood Peripheral Anaerobic Blood Culture - Preliminary NO GROWTH IN 3 DAYS Resulted 03/26/17 18:15 Cerebral Spinal Fluid Lumbar Puncture Fungal Smear - Final NO FUNGAL ELEMENTS SEEN. Resulted 03/26/17 18:15 Cerebral Spinal Fluid Lumbar Puncture Fungal Culture Pending Resulted 03/26/17 18:15 Cerebral Spinal Fluid Lumbar Puncture Acid Fast Stain - Final NO ACID FAST BACILLI SEEN Resulted 03/26/17 18:15 Cerebral Spinal Fluid Lumbar Puncture Mycobacterial Culture Pending Resulted 03/26/17 18:15 Cerebral Spinal Fluid Lumbar Puncture Gram Stain - Final Resulted 03/26/17 18:15 Cerebral Spinal Fluid Lumbar Puncture CSF Culture - Preliminary NO GROWTH IN 48 HOURS. Resulted Imaging Last 48 hours Impressions Brain MRI 03/26/17 1605 Signed Impressions: Service Date/Time: Sunday, March 26, 2017 18:55 - CONCLUSION: 1. No acute infarct, acute hemorrhage, midline shift or extra-axial fluid collections. 2. Severe diffuse periventricular white matter signal abnormalities and diffuse pontine signal abnormality which is nonspecific but unchanged compared to November 2016. 3. No abnormal enhancing lesion noted. 4. 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 Jonny Fine MD ADDENDUM: A focal cluster of subcentimeter restricted diffusion seen in the left parietal lobe white matter, series 7 image 41, compatible with a localized acute or subacute infarct. Marcus Devi MD Procedures * 03/26/17 -LP . Assessment and Plan Disease Oriented Problem List: (1) Acute metabolic encephalopathy (2) Pneumonia (3) Sepsis (4) Rheumatoid arthritis (5) Physical deconditioning Symptom Scale: (1) Debility 0-10 Scale: Unable to quantify (2) Pain 0-10 Scale: Unable to quantify Pertinent Non-Medical Issues Psychosocial: Patient was born and raised in [place], lived in [place] for some time, she now lives in [place] with her fisamir and her daughter Karolina, age 22. Patient is . 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 Highest level of education is high school. Spiritual: Alevism heidi, welcomes radiator tester support. Legal: No advance directives completed. Ethical issues impacting care: No ethical issues identified. . Important Contacts Karolina, daughter: [phone] Jemima, mother: [phone] [employer]: [phone] . Prognosis Mrs. Harris is a 46-year-old female with a medical history significant for rheumatoid arthritis, diabetes mellitus, hypertension, seizure activity, OA and history of CVA. Patient currently admitted secondary to sepsis, pneumonia. Recent acute hospitalization in November 2016 secondary to encephalitis, bilateral lower lobe cellulitis and C. difficile colitis. Patient with progressive decline, worsen since November 2016. Patient at high risk for further complications, are aggressive decline and given general debility, multiple ongoing chronic comorbidities, autoimmune disorders and underlying immunocompromise state. . Code Status: No Code Plan * CODE STATUS: DNR/DNI. * HEALTHCARE DECISION-MAKING: Patient with limited participation and medical decision-making given clinical condition, encephalopathy. Likely to regain capacity as encephalopathy improves. No advance directives completed. As per [place] statute, healthcare proxy decision-making falls to patient's only daughter Karolina Harris. Daughter is supported by patient's mother Jemima and gabriel Tim. * GOALS OF CARE: Family electing to continue aggressive management short of NO code, maximize patient's medical management. However, wishing to receive more information regarding hospice at home. Hospice referral has been sent. Likely trajectory of disease reviewed with family. Family understands that patient will likely continue to have repeated infections given general debility, multiple ongoing chronic comorbidities, autoimmune disorders and underlying immunocompromise. I have discussed possibility of further setbacks, decline and recurrent hospitalizations in the future. Family receptive to palliative care f/ u, ongoing goals of care conversation. * SYMPTOMS: = Pain, acute on chronic. Secondary to RA, chronic debility, bed/ chair bedbound status, colitis. Morphine, Neurontin and baclofen have been discontinued given altered mental status. = Debility: Progressive. Worsen since acute hospitalization in November 2016. PT recommended once patient is clinically stable. Family inquiring regarding short-term rehabilitation vs PT at home with home health. * Case discussed with Dr. Amada Corey and hospice admissions nurse Katja. * Palliative care contact information has been provided to patient and family. * Palliative care will continue to follow-up for further clarifications of goals of care as patient's clinical course continues to evolve. . Time Spent Total Floor Time (mins): 34 (Total time to include review medical records, physical exam, goals of care conversation with patient's family, case discussion with Dr. Corey and hospice nurse.) >50% Counseling/Coord of Care: Yes Attestation To help prompt me to consider important information that might be impacting today's encounter and assessment, information from prior notes written by myself or my colleagues may have been "brought forward" into today's note. My signature on this note, however, is an attestation that I personally performed the exam, history, and/or decision-making noted today, and, unless otherwise indicated, the interactions with patient, family, and staff as well as the review of records all occurred today. I also attest that the listed assessment and stated plan reflect my best clinical judgment today based on the combination of historical information, prior notes, and today's exam/ interactions. When time spent is documented, it refers only to time spent today by the signer, or if indicated, combined time spent today by collaborating physician/nurse practitioner. Teri Carlin Mar 28, 2017 13:47
[2017-03-28] MEDS: levETIRAcetam 500 MG/5 ML UDC NG SCH ×2 (13:54→21:12)
--- NOTE | 2017-03-28 14:27 | PD.CONS ---
HPI History of Present Illness This is a 46 year old F with multiple medical comorbidities including MS and RA causing her to be debilitated. Pt was brought to the emergency department for evaluation of confusion, per significant other at bedside she has had similar symptoms from infections in the past. Pt was febrile on admission with criteria indicative of sepsis, evaluated by infectious disease pending CSF and blood culture. GI has been consulted to evaluate pt for diarrhea and non-anion gap acidosis possibly secondary to GI losses. Of note, pt was recently admitted in November and diagnosed with C. Diff, she has finished treatment. Per pts significant other her diarrhea had resolved, he states she had a normal BM the first day she was admitted. The diarrhea began after admission to the hospital. No notice BRB in stool or black, tarry stools. Pt denies any abdominal pain. States nausea since admission, denies emesis. History of EGD, unsure when or at what facility, but states exam was normal. Denies ever having colonoscopy. CT abdomen and pelvis w contrast (03/22) noted, revealed mild, diffuse colitis in the proper clinical setting. This is nonspecific, presumably infectious or inflammatory. No abscess, perforation or obstruction. C. Diff toxin and epid negative. (Kylah Dukes) PFSH Past Medical History RA, immunocompromised History of C. difficile DM HTN pericardial tamponade- s/p window CVA- left sided weakness Seizure disorder Osteoporosis Depression . Past Surgical History Cervical fusion 2008 Pericardial window Lumbar sx Bilateral hands orif Bilateral feet orif Left hip replacement . (Kylah Dukes) Coded Allergies: hydromorphone (Verified Allergy, Unknown, 03/21/17) metformin (Verified Allergy, Unknown, 03/21/17) Family History Mom, living with history of Breast cancer Dad, living with history of Prostate cancer and RA Younger brother- hyperlipidemia . Social History no smoking/ drinking etoh/ drugs (Kylah Dukes) Review of Systems Gastrointestinal: COMPLAINS OF: Diarrhea, Nausea, DENIES: Abdominal pain, Black stools, Bloody stools, Constipation, Vomiting, Difficulty Swallowing, Odynophagia, Swelling of Abdomen, Heartburn, Hematemesis (Kylah Dukes) GI Exam Vitals I&O Vital Signs Date Time Temp Pulse Resp B/P (MAP) Pulse Ox O2 Delivery O2 Flow Rate FiO2 03/28/17 12:09 97.4 99 18 177/91 (119) 97 03/28/17 12:00 106 03/28/17 08:01 98.6 117 16 176/87 (116) 93 03/28/17 08:00 124 03/28/17 04:00 97.1 99 18 147/80 (102) 96 03/28/17 03:58 101 03/28/17 00:00 95 03/28/17 00:00 97.2 96 20 146/76 (99) 95 03/27/17 22:56 Room Air 03/27/17 20:00 98.2 113 19 139/76 (97) 96 03/27/17 17:05 97.6 100 20 168/79 (108) 99 03/27/17 16:00 99 03/27/17 15:47 Room Air I/O 03/27/17 03/27/17 03/27/17 03/28/17 03/28/17 03/28/17 07:00 15:00 23:00 07:00 15:00 23:00 Intake Total 1205 ml 2677 ml Output Total 4 ml Balance 1201 ml 2677 ml Intake Oral 0 ml IV Total 1205 ml 1637 ml Tube Feeding 240 ml Other 800 ml Output Urine Total 4 ml # Voids 100 4 5 # Bowel Movements 3 3 2 Imaging Last Impressions Brain MRI 03/26/17 1605 Signed Impressions: Service Date/Time: Sunday, March 26, 2017 18:55 - CONCLUSION: 1. No acute infarct, acute hemorrhage, midline shift or extra-axial fluid collections. 2. Severe diffuse periventricular white matter signal abnormalities and diffuse pontine signal abnormality which is nonspecific but unchanged compared to November 2016. 3. No abnormal enhancing lesion noted. 4. 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 Jonny Fine MD ADDENDUM: A focal cluster of subcentimeter restricted diffusion seen in the left parietal lobe white matter, series 7 image 41, compatible with a localized acute or subacute infarct. Marcus Devi MD Lumbar Puncture Fluoroscopy 03/26/17 0000 Signed Impressions: Service Date/Time: Sunday, March 26, 2017 19:11 - CONCLUSION: Uncomplicated fluoroscopically guided lumbar puncture. Mukul Gary Jr., MD Abdomen X-Ray 03/25/17 0000 Signed Impressions: Service Date/Time: Saturday, March 25, 2017 11:26 - CONCLUSION: NG tube overlying the midline esophagus with the proximal port well above the level of the gastroesophageal junction. Recommend advancement approximately 10 cm. Aditi Rodriguez MD Head CT 03/22/17 0000 Signed Impressions: Service Date/Time: February 20:16 - CONCLUSION: No evidence of acute cardiopulmonary disease. Prominent chronic white matter changes for a patient this age. Marcus Devi MD Abdomen/Pelvis CT 03/22/17 0000 Signed Impressions: Service Date/Time: February 20:18 - CONCLUSION: 1. Mild, diffuse colitis in the proper clinical setting. This is nonspecific, presumably infectious or inflammatory. No abscess, perforation or obstruction. 2. Chronic/unchange findings otherwise including multiple nonacute fractures and a tiny nonobstructing stone of the right kidney. Marcus Devi MD Chest X-Ray 03/21/17 1006 Signed Impressions: Service Date/Time: Tuesday, March 21, 2017 10:16 - CONCLUSION: Right midlung and left basilar scarring versus minimal infiltrates. Garret Weber MD Toe X-Ray 03/21/17 0000 Signed Impressions: Service Date/Time: Tuesday, March 21, 2017 15:45 - CONCLUSION: 1. 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 2. Prior compression screw fixation of the first MTP. 3. No acute fracture. Jorden Nina MD Laboratory Test 03/27/17 15:03 03/28/17 06:45 03/28/17 07:10 White Blood Count 10.5 TH/MM3 6.5 TH/MM3 Red Blood Count 4.17 MIL/MM3 4.20 MIL/MM3 Hemoglobin 11.5 GM/DL 10.9 GM/DL Hematocrit 33.2 % 33.2 % Mean Corpuscular Volume 79.6 FL 79.0 FL Mean Corpuscular Hemoglobin 27.6 PG 26.0 PG Mean Corpuscular Hemoglobin Concent 34.6 % 32.9 % Red Cell Distribution Width 16.3 % 16.2 % Platelet Count 265 TH/MM3 313 TH/MM3 Mean Platelet Volume 8.3 FL 8.7 FL Neutrophils (%) (Auto) 91.3 % 78.9 % Lymphocytes (%) (Auto) 3.2 % 8.0 % Monocytes (%) (Auto) 4.7 % 12.2 % Eosinophils (%) (Auto) 0.2 % 0.3 % Basophils (%) (Auto) 0.6 % 0.6 % Neutrophils # (Auto) 9.6 TH/MM3 5.1 TH/MM3 Lymphocytes # (Auto) 0.3 TH/MM3 0.5 TH/MM3 Monocytes # (Auto) 0.5 TH/MM3 0.8 TH/MM3 Eosinophils # (Auto) 0.0 TH/MM3 0.0 TH/MM3 Basophils # (Auto) 0.1 TH/MM3 0.0 TH/MM3 CBC Comment DIFF FINAL DIFF FINAL Differential Comment Erythrocyte Sedimentation Rate 44 mm/hr Blood Urea Nitrogen 7 MG/DL 6 MG/DL Creatinine 0.24 MG/DL LESS THAN 0.15 MG/DL Random Glucose 125 MG/DL 91 MG/DL Albumin 2.0 GM/DL 2.0 GM/DL Calcium Level 7.6 MG/DL 7.5 MG/DL Phosphorus Level 0.9 MG/DL 1.3 MG/DL Magnesium Level 1.8 MG/DL 1.8 MG/DL Sodium Level 135 MEQ/L 138 MEQ/L Potassium Level 3.4 MEQ/L 3.6 MEQ/L Chloride Level 104 MEQ/L 104 MEQ/L Carbon Dioxide Level 20.9 MEQ/L 24.8 MEQ/L Anion Gap 10 MEQ/L 9 MEQ/L Estimat Glomerular Filtration Rate 308 ML/MIN 531 ML/MIN Lactic Acid Level 1.4 mmol/L Ammonia 24 MCMOL/L Blood Herpes Simplex Virus I (PCR) Negative Blood Herpes Simplex Virus II (PCR) Negative Date/Time Source Procedure Growth Status 03/25/17 13:38 Blood Peripheral Aerobic Blood Culture - Preliminary NO GROWTH IN 3 DAYS Resulted 03/25/17 13:38 Blood Peripheral Anaerobic Blood Culture - Preliminary NO GROWTH IN 3 DAYS Resulted 03/26/17 18:15 Cerebral Spinal Fluid Lumbar Puncture Fungal Smear - Final NO FUNGAL ELEMENTS SEEN. Resulted 03/26/17 18:15 Cerebral Spinal Fluid Lumbar Puncture Fungal Culture Pending Resulted 03/21/17 10:35 Nasal Aspirate Influenza Types A,B Antigen (YING) - Final NEGATIVE FOR FLU A AND B ANTIGEN.... Complete Physical Examination HEENT: Normocephalic; atraumatic CHEST: Even/unlabored CARDIAC: RRR ABDOMEN: Soft, nondistended, nontender; bowel sound active SKIN: Normal; no rash; no jaundice. INSPECTOR OF WEIGHTS AND MEASURES: Alert and oriented times three. (Kylah Dukes) Assessment and Plan Plan Assessment: - Diarrhea- Started since admission to hospital. Pt recently diagnosed with C. Diff during hospitalization in November, finished treatment, diarrhea cleared up. Per significant other she had a normal BM the day of admission and diarrhea began since then. CT abdomen and pelvis noted (03/22) --> Mild, diffuse colitis in the proper clinic setting. This is nonspecific, presumably infectious or inflammatory. Pt febrile on admission, now afebrile. On Aztreonam and Flagyl per ID. C. diff toxin and epid negative. - Multiple comorbidities including MS and RA, debilitated requiring wheelchair at home Discussed with pt her wishes, and she does not wish to proceed with any endoscopic procedures at this time. Hospice consult pending. Per significant other at bedside they would like to discuss with her mother and discuss issue tomorrow. Plan: Stool culture Ova and parasites Continue abx per ID Pt not wishing for procedures at this time Further recommendations to follow based on clinical course Pt has been seen and examined by myself and Dr. Carnes and this note is written on his behalf (Kylah Dukes) Plan Patient was seen and examined, agree with above-noted, we will order stool electrolytes (Tiff Carnes MD) Kylah Dukes Mar 28, 2017 14:27 Tiff Carnes MD Mar 28, 2017 16:15
[2017-03-28] MEDS ORDERED: POTASSIUM PHOSPHATE INJ 30 MMOL in SODIUM CHLOR 0.9% 250 ML INJ 250 ML IV ONE (15:00)
[2017-03-28] MEDS: ASPIRIN EC 81 MG TABEC PO SCH (16:50)
[2017-03-28] MEDS: HEPARIN SODIUM - SQ 10,000 UNITS/ML VIAL SQ SCH (21:12)
[2017-03-28] MEDS: LACTIC ACID (AMMONIUM LACTATE) 12% LOTION 225 GM BTL TOPICAL SCH (21:12)
[2017-03-29] VITALS (9 sets, daily range): BP systolic 141–172; BP diastolic 78–92; PULSE 89–124; RESP 18–20; TEMP 97.9–100.4; O2SAT 91–97
[2017-03-29] MEDS: FREE WATER PO SCH ×6 (02:00→22:00)
[2017-03-29] MEDS: ACETAMINOPHEN 325 MG TAB PO PRN (04:15)
[2017-03-29] MEDS: AZTREONAM INJ 2,000 MG in SODIUM CHLORIDE 0.9% INJ 100 ML IV SCH ×3 (04:18→22:00)
[2017-03-29] MEDS: metroNIDAZOLE 500 MG INJ 100 ML IV SCH ×3 (04:18→20:14)
[2017-03-29] MEDS: HEPARIN SODIUM - SQ 10,000 UNITS/ML VIAL SQ SCH ×3 (05:44→22:57)
[2017-03-29] MEDS: INSULIN ASPART SUPPLEMENTAL SCALE SQ SCH ×4 (08:00→20:27)
--- NOTE | 2017-03-29 08:13 | HHI.PR ---
Review/Management Diagnosis/Plan: (1) Acute embolic stroke ICD Codes: I63.9 - Cerebral infarction, unspecified Status: Acute Plan: mental status improved very tiny left high parietal mild increased dwi- likely not clinically significant recs pt/mother decline TOMÁS. 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 etiology csf with ocb but also in serum (3) Acute metabolic encephalopathy ICD Codes: G93.41 - Metabolic encephalopathy Status: Acute Plan: improved (4) Debility ICD Codes: R53.81 - Other malaise (5) Physical deconditioning ICD Codes: R53.81 - Other malaise Subjective Subjective Comments xcover No acute events reported No headache No chest pain No dyspnea Active Medications Current Medications Medications (Trade) Dose Ordered Sig/Fuentes Route Start Time Stop Time Status Last Admin (NS Flush) 2 ml UNSCH PRN IV FLUSH 03/21/17 13:00 03/23/17 08:13 (NS Flush) 2 ml BID IV FLUSH 03/21/17 21:00 03/28/17 21:00 (Narcan Inj) 0.4 mg UNSCH PRN IV PUSH 03/21/17 13:00 (Lactinex) 1 tab TID PO 03/21/17 18:00 03/28/17 16:50 (Pepcid) 20 mg Q12HR PO 03/21/17 21:00 03/28/17 21:11 (VANCOMYCIN for oral use only) 500 mg QID PO 03/21/17 18:30 Future Hold 03/23/17 22:34 (Free Water) VOLUME OF WATER: 200 ML... Q4H PO 03/21/17 18:00 03/29/17 05:43 (Tylenol) 650 mg Q4H PRN PO 03/21/17 19:45 03/29/17 04:15 (Zofran Inj) 4 mg Q6HR PRN IV PUSH 03/22/17 10:45 03/22/17 13:00 (Lopressor) 50 mg Q12HR PO 03/24/17 09:00 03/28/17 21:12 (Vasotec Inj) 1.25 mg Q6H PRN IV PUSH 03/23/17 13:45 (Catapres) 0.1 mg Q6H PRN PO 03/23/17 13:45 03/29/17 04:15 Metronidazole 100 ml @ 100 mls/hr Q8H IV 03/25/17 04:00 03/29/17 04:18 (Keppra Liq) 500 mg Q12H NG 03/25/17 23:00 03/28/17 21:12 (Deltasone) 10 mg BID NG 03/26/17 21:00 03/28/17 21:11 (Levemir Inj) 8 units Q12HR SQ 03/26/17 21:00 03/28/17 11:11 (NovoLOG SUPPLEMENTAL SCALE) 1 ACHS SLIDING SCALE SQ 03/26/17 17:00 03/27/17 08:32 (D50w (Vial) Inj) 50 ml UNSCH PRN IV PUSH 03/26/17 16:30 (Glucagon Inj) 1 mg UNSCH PRN OTHER 03/26/17 16:30 Aztreonam 2000 mg/ Sodium Chloride 100 ml @ 200 mls/hr Q8H IV 03/26/17 20:00 03/29/17 04:18 (Lac-Hydrin 12% Lotion) 1 applic BID TOPICAL 03/28/17 21:00 03/28/17 21:12 (Ecotrin Ec) 81 mg DAILY PO 03/28/17 14:15 03/28/17 16:50 (Heparin Inj) 5,000 units Q8HR SQ 03/28/17 22:00 03/29/17 05:44 Allergies Allergies Coded Allergies hydromorphone (Verified Allergy, Unknown, 03/21/17) metformin (Verified Allergy, Unknown, 03/21/17) Exam I&O / VS Vital Signs Date Time Temp Pulse Resp B/P (MAP) Pulse Ox O2 Delivery O2 Flow Rate FiO2 03/29/17 04:05 121 03/29/17 04:00 100.3 119 20 172/92 (118) 97 03/29/17 00:00 89 03/29/17 00:00 97.9 105 18 164/91 (115) 93 03/28/17 21:23 Room Air 1/31/18 20:00 127 03/28/17 19:32 98.9 112 20 178/90 (119) 97 03/28/17 16:13 97.9 115 18 171/94 (119) 97 03/28/17 16:00 126 03/28/17 12:09 97.4 99 18 177/91 (119) 97 03/28/17 12:00 106 03/28/17 12:00 Room Air General: Alert and Oriented, No acute distress Eye: EOMI Neurologic: Alert, Oriented Psychiatric: Cooperative, Appropriate mood & affect Exam Comments ox 3, mild disheveled appearance follows, articulate, has ng tube in place, left ptosis- chronic per pt/mother, ou 4-3mm, obrien to gravity with distal extremity weakness and mild atrophy in hands, msr 1-2+ Objective Micro and Labs Date/Time Source Procedure Growth Status 03/25/17 13:38 Blood Peripheral Aerobic Blood Culture - Preliminary NO GROWTH IN 3 DAYS Resulted 03/25/17 13:38 Blood Peripheral Anaerobic Blood Culture - Preliminary NO GROWTH IN 3 DAYS Resulted 03/26/17 18:15 Cerebral Spinal Fluid Lumbar Puncture Fungal Smear - Final NO FUNGAL ELEMENTS SEEN. Resulted 03/26/17 18:15 Cerebral Spinal Fluid Lumbar Puncture Fungal Culture Pending Resulted 03/21/17 10:35 Nasal Aspirate Influenza Types A,B Antigen (YING) - Final NEGATIVE FOR FLU A AND B ANTIGEN.... Complete Rudy Cabrera MD Mar 29, 2017 08:13
[2017-03-29] MEDS: LACTIC ACID (AMMONIUM LACTATE) 12% LOTION 225 GM BTL TOPICAL SCH ×2 (08:55→20:15)
[2017-03-29] MEDS: LACTOBACILLUS ACIDOPHILUS TAB PO SCH ×3 (08:56→17:57)
[2017-03-29] MEDS: INSULIN DETEMIR 100 UNITS/ML VIAL SQ SCH ×2 (08:56→21:00)
[2017-03-29] MEDS: METOPROLOL TARTRATE 50 MG TAB PO SCH ×2 (08:56→20:15)
[2017-03-29] MEDS: predniSONE 5 MG TAB NG SCH ×2 (08:56→20:14)
[2017-03-29] MEDS: FAMOTIDINE 20 MG TAB PO SCH ×2 (08:56→20:15)
[2017-03-29] MEDS: ASPIRIN EC 81 MG TABEC PO SCH (08:57)
[2017-03-29] MEDS: SODIUM CHLORIDE 0.9% FLUSH 10 ML FLUSH IV FLUSH SCH ×2 (08:57→20:15)
[2017-03-29 09:26] LABS: HEMATOCRIT 34.3 % (35.0-46.0); HEMOGLOBIN 11.3 GM/DL (11.6-15.3); MEAN CELL VOLUME 80.2 FL (80.0-100.0); MEAN CORPUSCULAR HEMOGLOBIN 26.5 PG (27.0-34.0); MEAN PLATELET VOLUME 7.7 FL (7.0-11.0); PLATELET COUNT 373 TH/MM3 (150-450); RED BLOOD COUNT 4.27 MIL/MM3 (4.00-5.30); RED CELL DISTRIBUTION WIDTH 16.4 % (11.6-17.2); WHITE BLOOD COUNT 5.3 TH/MM3 (4.0-11.0)
[2017-03-29 09:42] LABS: BICARBONATE 25.6 MEQ/L (21.0-32.0); CALCIUM 8.1 MG/DL (8.5-10.1); CREATININE 0.16 MG/DL (0.50-1.00); MAGNESIUM 1.9 MG/DL (1.5-2.5); PHOSPHORUS 2.3 MG/DL (2.5-4.9)
[2017-03-29] MEDS ORDERED: LORazepam 2 MG/ML VIAL IV PUSH ONE ×2 (10:00→13:30)
--- NOTE | 2017-03-29 12:06 | HHI.GIFU ---
Subjective Remarks Pt feels her diarrhea is improving "I don't think I have that anymore." Per record there are 3 BM documented overnight. Denies abd pain but seems tender on exam. (Bri Carter) Objective Vitals I&O Vital Signs Date Time Temp Pulse Resp B/P (MAP) Pulse Ox O2 Delivery O2 Flow Rate FiO2 03/29/17 08:00 98.2 111 18 159/90 (113) 96 03/29/17 08:00 106 03/29/17 04:05 121 03/29/17 04:00 100.3 119 20 172/92 (118) 97 03/29/17 00:00 89 03/29/17 00:00 97.9 105 18 164/91 (115) 93 03/28/17 21:23 Room Air 03/28/17 20:00 127 03/28/17 19:32 98.9 112 20 178/90 (119) 97 03/28/17 16:13 97.9 115 18 171/94 (119) 97 03/28/17 16:00 126 03/28/17 12:09 97.4 99 18 177/91 (119) 97 03/28/17 12:00 106 03/28/17 12:00 Room Air I/O 03/28/17 03/28/17 03/28/17 03/29/17 03/29/17 03/29/17 07:00 15:00 23:00 07:00 15:00 23:00 Intake Total 2677 ml 560 ml 460 ml Balance 2677 ml 560 ml 460 ml Intake Oral 360 ml IV Total 1637 ml 200 ml 460 ml Tube Feeding 240 ml Other 800 ml # Voids 5 4 3 # Bowel Movements 2 4 3 Laboratory Laboratory Tests Test 03/29/17 08:48 03/29/17 09:26 White Blood Count 5.3 Red Blood Count 4.27 Hemoglobin 11.3 Hematocrit 34.3 Mean Corpuscular Volume 80.2 Mean Corpuscular Hemoglobin 26.5 Mean Corpuscular Hemoglobin Concent 33.0 Red Cell Distribution Width 16.4 Platelet Count 373 Mean Platelet Volume 7.7 Blood Urea Nitrogen 7 Creatinine 0.16 Random Glucose 80 Calcium Level 8.1 Phosphorus Level 2.3 Magnesium Level 1.9 Sodium Level 134 Potassium Level 3.7 Chloride Level 101 Carbon Dioxide Level 25.6 Anion Gap 7 Estimat Glomerular Filtration Rate 493 Date/Time Source Procedure Growth Status 03/25/17 13:38 Blood Peripheral Aerobic Blood Culture - Preliminary NO GROWTH IN 4 DAYS Resulted 03/25/17 13:38 Blood Peripheral Anaerobic Blood Culture - Preliminary NO GROWTH IN 4 DAYS Resulted 03/26/17 18:15 Cerebral Spinal Fluid Lumbar Puncture Fungal Smear - Final NO FUNGAL ELEMENTS SEEN. Resulted 03/26/17 18:15 Cerebral Spinal Fluid Lumbar Puncture Fungal Culture Pending Resulted 03/29/17 09:26 Stool Stool Cryptosporidium Exam Pending Received 03/29/17 09:26 Stool Stool Giardia Antigen (YING) Pending Received 03/21/17 10:35 Nasal Aspirate Influenza Types A,B Antigen (YING) - Final NEGATIVE FOR FLU A AND B ANTIGEN.... Complete Imaging Last Impressions Brain MRI 03/26/17 1605 Signed Impressions: Service Date/Time: Sunday, March 26, 2017 18:55 - CONCLUSION: 1. No acute infarct, acute hemorrhage, midline shift or extra-axial fluid collections. 2. Severe diffuse periventricular white matter signal abnormalities and diffuse pontine signal abnormality which is nonspecific but unchanged compared to November 2016. 3. No abnormal enhancing lesion noted. 4. 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 Jonny Fine MD ADDENDUM: A focal cluster of subcentimeter restricted diffusion seen in the left parietal lobe white matter, series 7 image 41, compatible with a localized acute or subacute infarct. Marcus Devi MD Lumbar Puncture Fluoroscopy 03/26/17 0000 Signed Impressions: Service Date/Time: Sunday, March 26, 2017 19:11 - CONCLUSION: Uncomplicated fluoroscopically guided lumbar puncture. Mukul Gary Jr., MD Abdomen X-Ray 03/25/17 0000 Signed Impressions: Service Date/Time: Saturday, March 25, 2017 11:26 - CONCLUSION: NG tube overlying the midline esophagus with the proximal port well above the level of the gastroesophageal junction. Recommend advancement approximately 10 cm. Adiit Rodriguez MD Head CT 03/22/17 0000 Signed Impressions: Service Date/Time: February 20:16 - CONCLUSION: No evidence of acute cardiopulmonary disease. Prominent chronic white matter changes for a patient this age. Marcus Devi MD Abdomen/Pelvis CT 03/22/17 0000 Signed Impressions: Service Date/Time: February 20:18 - CONCLUSION: 1. Mild, diffuse colitis in the proper clinical setting. This is nonspecific, presumably infectious or inflammatory. No abscess, perforation or obstruction. 2. Chronic/unchange findings otherwise including multiple nonacute fractures and a tiny nonobstructing stone of the right kidney. Marcus Devi MD Chest X-Ray 03/21/17 1006 Signed Impressions: Service Date/Time: Tuesday, March 21, 2017 10:16 - CONCLUSION: Right midlung and left basilar scarring versus minimal infiltrates. Garret Weber MD Toe X-Ray 03/21/17 0000 Signed Impressions: Service Date/Time: Tuesday, March 21, 2017 15:45 - CONCLUSION: 1. 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 2. Prior compression screw fixation of the first MTP. 3. No acute fracture. Jorden Nina MD Physical Exam HEENT: PERRL; normocephalic; atraumatic; no jaundice. CHEST: CTA CARDIAC: RRR ABDOMEN: Soft, nondistended,diffuse TTP; no hepatosplenomegaly; bowel sounds are present in all four quadrants. EXTREMITIES: No clubbing, cyanosis, or edema. SKIN: Normal; no rash; no jaundice. TRAINING ADMINISTRATOR: lethargic. (Bri Carter) Assessment and Plan Plan Assessment: - Diarrhea- Started since admission to hospital. Pt recently diagnosed with C. Diff during hospitalization in November, finished treatment, diarrhea cleared up. Per significant other she had a normal BM the day of admission and diarrhea began since then. CT abdomen and pelvis noted (03/22) --> Mild, diffuse colitis in the proper clinic setting. This is nonspecific, presumably infectious or inflammatory. Pt febrile on admission, now afebrile. On Aztreonam and Flagyl per ID. C. diff toxin and epid negative. - Multiple comorbidities including MS and RA, debilitated requiring wheelchair at home Discussed with pt her wishes, and she does not wish to proceed with any endoscopic procedures at this time. Hospice consult pending. Per significant other at bedside they would like to discuss with her mother and discuss issue tomorrow. 03/29/17 stool studies and lytes pending. Pt claimes diarrhea improved but had 3 documented stools over night. diffusely tender Plan: await Stool culture await Ova and parasites await stool lytes Continue abx per ID Pt not wishing for procedures at this time Further recommendations to follow based on clinical course pt seen by myself and Dr Jernigan and this note is written on his behalf (Bri Carter) Physician Comments Seen and examined with FAMILY DEVELOPMENT SPECIALIST, diarrhea better. Being transferred to hospice. Discussed with Dr. Salgado. Will sign off. Thank you (April Jernigan MD) Bri Carter Mar 29, 2017 12:06 April Jernigan MD Mar 29, 2017 16:17
[2017-03-29] MEDS ORDERED: GADODIAMIDE PF 287 MG/ML 20 ML VIAL (for RAD MRI) IVCONTRAST ONE (13:09)
[2017-03-29] MEDS: levETIRAcetam 500 MG/5 ML UDC NG SCH ×2 (13:30→23:00)
--- NOTE | 2017-03-29 13:53 | RADRPT ---
EXAM DATE/TIME: 03/29/2017 11:50 [facility] COMPARISON: MRI CERVICAL SPINE W/O CONTRAST, December 06, 2016, 21:13. INDICATIONS : Neck pain. Status post cervical fusion. Evaluate for abscess. MEDICAL HISTORY : Hypertension. Diabetes mellitus type 2. Encephalopathy, RA, Seizures, Pericardial Effusion, Pericar dial Tampanade SURGICAL HISTORY : Cervical Fusion, Pericardial Window, Lumbar, Bilat Hands, Bilat Feet ORIF, Left Hip Replacement ENCOUNTER: Subsequent ACUITY: 1 week PAIN SCORE: 5/10 LOCATION: Neck. TECHNIQUE: Multiplanar, multisequence MRI examination of the cervical spine was performed. The patient refused i ntravenous contrast limiting the sensitivity exam especially for infection. FINDINGS: VERTEBRAE: The patient is again noted to be status post multilevel fusion from the C2-C6 level with susceptibili ty artifact. The fusion does not appear significantly changed compared to the prior study. Anterior e xtradural defect is noted at the C5-6 level on the sagittal images which does not appear significant changed. ALIGNMENT: Stable in appearance with no evidence of subluxation. CORD: Grossly normal in size, shape and signal intensity with no definite focal abnormality. POST FOSSA: The cerebellar tonsils are normal in position. C2-C3: The thecal sac has a normal configuration. There is no evidence of disc herniation or spinal canal s tenosis. The neural foramina are patent bilaterally. C3-C4: The thecal sac has a normal configuration. There is no evidence of disc herniation or spinal canal s tenosis. The neural foramina are patent bilaterally. C4-C5: The thecal sac has a normal configuration. There is no evidence of disc herniation or spinal canal s tenosis. The neural foramina are patent bilaterally. C5-C6: There is broad-based posterior ridging with mass effect on the anterior thecal sac and no definite ma ss effect upon the cord. The CSF space surrounding the cord appears nearly totally obliterated. The n eural foramina appear patent. C6-C7: The thecal sac has a normal configuration. There is no evidence of disc herniation or spinal canal s tenosis. The neural foramina are patent bilaterally. C7-T1: The thecal sac has a normal configuration. There is no evidence of disc herniation or spinal canal s tenosis. The neural foramina are patent bilaterally. CONCLUSION: 1. Suboptimal visualization due to susceptibility artifact. 2. Status post multilevel fusion from C2-C6 level which does not appear significantly changed. 3. Hypertrophic ridging at C5-6 with mass effect on the anterior thecal sac. This does not appear sig nificantly changed. There is borderline central canal stenosis. 4. No evidence to suggest abscess however visualization is suboptimal secondary to lack of intravenou s contrast and susceptibility artifact. Hans Hidalgo MD on March 29, 2017 at 13:42 Board Certified Radiologist. This report was verified electronically.
--- NOTE | 2017-03-29 14:03 | RADRPT ---
EXAM DATE/TIME: 03/29/2017 11:50 [facility] COMPARISON: MRA BRAIN W/O CONTRAST, December 06, 2016, 21:13. INDICATIONS : CVA MEDICAL HISTORY : Hypertension. Diabetes mellitus type 2. Encephalopathy, RA, Seizures, Pericardial Effusion, Pericar dial Tampanade SURGICAL HISTORY : Cervical Fusion, Pericardial Window, Lumbar, Bilat Hands, Bilat Feet ORIF, Left Hip Replacement ENCOUNTER: Subsequent ACUITY: 1 week PAIN SCORE: 0/10 LOCATION: Brain Please note a normal MRA of the brain does not entirely exclude the possibility of a small aneurysm, nor the possibility of distal intracranial vessel disease. TECHNIQUE: 3D time of flight MRA was performed. Source images, multiplanar STS MIP, and 3D volume MIP reconstru ctions were reviewed. FINDINGS: Anterior circulation: Distal intracranial internal carotid arteries are patent with flow extending to the middle and anteri or cerebral arteries. There is no evidence for aneurysm, vessel truncation or stenosis, and no eviden ce for vascular malformation. Posterior circulation: Symmetric distal vertebral arteries with flow extending to basilar artery. There is no evidence for aneurysm, vessel truncation or stenosis, and no evidence for vascular malformation. CONCLUSION: 1. Unremarkable [facility] [place] MRA examination. Specifically, no large vessel occlusion or signific ant flow limiting stenosis. Jorden Nina MD on March 29, 2017 at 13:59 Board Certified Radiologist. This report was verified electronically.
--- NOTE | 2017-03-29 14:45 | RADRPT ---
EXAM DATE/TIME: 03/29/2017 11:50 [facility] COMPARISON: TOE LEFT 1ST DIGIT (MIN 2VWS), March 21, 2017, 15:45. INDICATIONS Osteomyelitis. MEDICAL HISTORY : Hypertension. Diabetes mellitus type 2. Encephalopathy, RA, Seizures, Pericardial Effusion, Pericar dial Tampanade SURGICAL HISTORY : Cervical Fusion, Pericardial Window, Lumbar, Bilat Hands, Bilat Feet ORIF, Left Hip Replacement and l eft great toe surgery. ENCOUNTER: Subsequent ACUITY: 1 week PAIN SCORE: 5/10 LOCATION: Left foot. TECHNIQUE: Multiplanar, multisequence MRI examination was performed without contrast. FINDINGS: Diffuse motion artifact significantly limiting the sensitivity of the exam. A metal screw is pre sent transfixing the first metatarsal phalangeal joint with susceptibility artifact. There is soft ti ssue edema along the distal phalanx with apparent marrow edema centrally. This is poorly defined. Thi s corresponds to the destructive area seen on the plain film. There is a suggestion of a dorsal ulcer ation as well. CONCLUSION: 1. Limited suboptimal study secondary to motion artifact. 2. Findings most characteristic of osteomyelitis involving the first distal phalanx. 3. Soft tissue edema over the first digit with suggestion of dorsal ulceration. Hans Hidalog MD on March 29, 2017 at 14:15 Board Certified Radiologist. This report was verified electronically.
--- NOTE | 2017-03-29 15:47 | RADRPT ---
EXAM DATE/TIME: 03/29/2017 11:50 [facility] COMPARISON: MRI BRAIN W & W/O CONTRAST, March 26, 2017, 18:55. MRV BRAIN W/O CONTRAST, December 06, 2016, 21:1 3. INDICATIONS : CVA MEDICAL HISTORY : Hypertension. Diabetes mellitus type 2. Encephalopathy, RA, Seizures, Pericardial Effusion, Pericar dial Tampanade SURGICAL HISTORY : Cervical Fusion, Pericardial Window, Lumbar, Bilat Hands, Bilat Feet ORIF, Left Hip Replacement ENCOUNTER: Subsequent ACUITY: 1 week PAIN SCORE: 0/10 LOCATION: brain Please note a normal MRA of the brain does not entirely exclude the possibility of a small aneurysm, nor the possibility of distal intracranial vessel disease. TECHNIQUE: MR venography of the brain was performed without contrast with multiplanar and 3D reconstructions. FINDINGS: Normal signal is seen involving the major intracranial venous structures. The straight sinus is sligh tly small in caliber but this is unchanged the prior exam. No filling defects are appreciated. The ri ght transverse and sigmoid sinus are dominant compared to the contralateral side. This is stable. CONCLUSION: Normal exam. Mukul Gary Jr., MD on March 29, 2017 at 15:41 Board Certified Radiologist. This report was verified electronically.
--- NOTE | 2017-03-29 16:07 | RADRPT ---
EXAM DATE/TIME: 03/29/2017 11:50 [facility] COMPARISON: No previous studies available for comparison. INDICATIONS : CVA CONTRAST: 20 cc Omniscan (gadodiamide) IV MEDICAL HISTORY : Diabetes mellitus type 2. Hypertension. Encephalopathy, RA, Seizures, Pericardial Effusion, Pericar dial Tampanade SURGICAL HISTORY : Cervical Fusion, Pericardial Window, Lumbar, Bilat Hands, Bilat Feet ORIF, Left Hip Replacement ENCOUNTER: Subsequent ACUITY: 1 week PAIN SCORE: 0/10 LOCATION: Carotids Percent stenosis is calculated using the diameter of the stenotic region over the diameter of the nor mal distal internal carotid artery. TECHNIQUE: Bolus infused MRA of the extracranial circulation was performed using a neurovascular coil. Post pro cessing was performed including rotating subvolume maximum intensity projections of each carotid mihir ry, rotating full volume maximum intensity projections of both carotid arteries, sagittal and coronal sliding thin slab reformations of each carotid artery, and left oblique sliding thin slab reformatio n through the aortic arch to include the origin of the arch branch vessels. FINDINGS: AORTIC ARCH: There is a three vessel origin of the great vessels from the aorta. No evidence of ostial narrowing. RIGHT CAROTID: The common carotid artery is intact. The carotid bulb has a normal configuration without ulceration or narrowing. The internal carotid artery lumen is smooth without stenosis. The external carotid ar lola is intact. LEFT CAROTID: Tortuous proximal common carotid artery with suboptimal visualization of portions of the proximal com mon carotid artery. Otherwise, intact. The carotid bulb has a normal configuration without ulceration or narrowing. The internal carotid artery lumen is smooth without stenosis. The external carotid a rtery is intact. VERTEBRALS: The vertebral arteries have a symmetric diameter. Portions of the proximal left vertebral artery are not well-demonstrated. Otherwise, no stenotic lesions are seen. CONCLUSION: 1. Limited visualization of portions of the proximal left carotid and vertebral arteries. 2. Otherwise, no significant focal flow-limiting stenosis. Jorden Nina MD on March 29, 2017 at 15:50 Board Certified Radiologist. This report was verified electronically.
--- NOTE | 2017-03-29 16:09 | HHI.PR ---
Subjective Remarks The patient was seen with her mother at the bedside. Their questions were answered. They seemed interested in pursuing hospice services in the morning. No acute complaints at this time. Discussed with nursing and palliative care. Objective Vitals Vital Signs Date Time Temp Pulse Resp B/P (MAP) Pulse Ox O2 Delivery O2 Flow Rate FiO2 03/29/17 15:48 98.9 110 18 141/81 (101) 91 03/29/17 08:00 Room Air 03/29/17 08:00 98.2 111 18 159/90 (113) 96 03/29/17 08:00 106 03/29/17 04:05 121 03/29/17 04:00 100.3 119 20 172/92 (118) 97 03/29/17 00:00 89 03/29/17 00:00 97.9 105 18 164/91 (115) 93 03/28/17 21:23 Room Air 03/28/17 20:00 127 03/28/17 19:32 98.9 112 20 178/90 (119) 97 03/28/17 16:13 97.9 115 18 171/94 (119) 97 I/O 03/28/17 03/28/17 03/28/17 03/29/17 03/29/17 03/29/17 07:00 15:00 23:00 07:00 15:00 23:00 Intake Total 2677 ml 560 ml 460 ml Balance 2677 ml 560 ml 460 ml Intake Oral 360 ml IV Total 1637 ml 200 ml 460 ml Tube Feeding 240 ml Other 800 ml # Voids 5 4 3 # Bowel Movements 2 4 3 Result Diagram: 03/29/17 0848 03/29/17 0848 Imaging Last Impressions Head Magnetic Resonance Angiography 03/29/17 0000 Signed Impressions: Service Date/Time: March 11:50 - CONCLUSION: 1. Unremarkable [place] [place] [facility] MRA examination. Specifically, no large vessel occlusion or significant flow limiting stenosis. Jorden Nina MD Foot MRI 03/29/17 0000 Signed Impressions: Service Date/Time: March 11:50 - CONCLUSION: 1. Limited suboptimal study secondary to motion artifact. 2. Findings most characteristic of osteomyelitis involving the first distal phalanx. 3. Soft tissue edema over the first digit with suggestion of dorsal ulceration. Hans Hidalgo MD Cervical Spine MRI 03/29/17 0000 Signed Impressions: Service Date/Time: March 11:50 - CONCLUSION: 1. Suboptimal visualization due to susceptibility artifact. 2. Status post multilevel fusion from C2-C6 level which does not appear significantly changed. 3. Hypertrophic ridging at C5-6 with mass effect on the anterior thecal sac. This does not appear significantly changed. There is borderline central canal stenosis. 4. No evidence to suggest abscess however visualization is suboptimal secondary to lack of intravenous contrast and susceptibility artifact. Hans Hidalgo MD Brain MRI 03/26/17 1605 Signed Impressions: Service Date/Time: Sunday, March 26, 2017 18:55 - CONCLUSION: 1. No acute infarct, acute hemorrhage, midline shift or extra-axial fluid collections. 2. Severe diffuse periventricular white matter signal abnormalities and diffuse pontine signal abnormality which is nonspecific but unchanged compared to November 2016. 3. No abnormal enhancing lesion noted. 4. 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 Jonny Fine MD ADDENDUM: A focal cluster of subcentimeter restricted diffusion seen in the left parietal lobe white matter, series 7 image 41, compatible with a localized acute or subacute infarct. Marcus Devi MD Lumbar Puncture Fluoroscopy 03/26/17 0000 Signed Impressions: Service Date/Time: Sunday, March 26, 2017 19:11 - CONCLUSION: Uncomplicated fluoroscopically guided lumbar puncture. Mukul Gary Jr., MD Abdomen X-Ray 03/25/17 0000 Signed Impressions: Service Date/Time: Saturday, March 25, 2017 11:26 - CONCLUSION: NG tube overlying the midline esophagus with the proximal port well above the level of the gastroesophageal junction. Recommend advancement approximately 10 cm. Aditi Rodriguez MD Head CT 03/22/17 0000 Signed Impressions: Service Date/Time: February 20:16 - CONCLUSION: No evidence of acute cardiopulmonary disease. Prominent chronic white matter changes for a patient this age. Marcus Devi MD Abdomen/Pelvis CT 03/22/17 0000 Signed Impressions: Service Date/Time: February 20:18 - CONCLUSION: 1. Mild, diffuse colitis in the proper clinical setting. This is nonspecific, presumably infectious or inflammatory. No abscess, perforation or obstruction. 2. Chronic/unchange findings otherwise including multiple nonacute fractures and a tiny nonobstructing stone of the right kidney. Marcus Devi MD Chest X-Ray 03/21/17 1006 Signed Impressions: Service Date/Time: Tuesday, March 21, 2017 10:16 - CONCLUSION: Right midlung and left basilar scarring versus minimal infiltrates. Garret Weber MD Toe X-Ray 03/21/17 0000 Signed Impressions: Service Date/Time: Tuesday, March 21, 2017 15:45 - CONCLUSION: 1. 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 2. Prior compression screw fixation of the first MTP. 3. No acute fracture. Jorden Nina MD Objective Remarks GENERAL: Appears comfortable. Patient awake, alert. SKIN: Warm and dry. HEAD: Normocephalic. EYES: No scleral icterus. No injection or drainage. NECK: Supple, trachea midline. No JVD. CARDIOVASCULAR: Tachycardic without murmurs, gallops, or rubs. RESPIRATORY: Breath sounds equal bilaterally. No accessory muscle use. GASTROINTESTINAL: Abdomen soft, non-tender, nondistended. MUSCULOSKELETAL: No cyanosis, or edema. Lower extremities tender to palpation. BACK: Nontender without obvious deformity. No CVA tenderness. PSYCH: Calm. Procedures NONE Medications and IVs Current Medications Medications (Trade) Dose Ordered Sig/Fuentes Route Start Time Stop Time Status Last Admin (NS Flush) 2 ml UNSCH PRN IV FLUSH 03/21/17 13:00 03/23/17 08:13 (NS Flush) 2 ml BID IV FLUSH 03/21/17 21:00 03/29/17 08:57 (Narcan Inj) 0.4 mg UNSCH PRN IV PUSH 03/21/17 13:00 (Lactinex) 1 tab TID PO 03/21/17 18:00 03/29/17 13:37 (Pepcid) 20 mg Q12HR PO 03/21/17 21:00 03/29/17 08:56 (VANCOMYCIN for oral use only) 500 mg QID PO 03/21/17 18:30 Future Hold 03/23/17 22:34 (Free Water) VOLUME OF WATER: 200 ML... Q4H PO 03/21/17 18:00 03/29/17 13:37 (Tylenol) 650 mg Q4H PRN PO 03/21/17 19:45 03/29/17 04:15 (Zofran Inj) 4 mg Q6HR PRN IV PUSH 03/22/17 10:45 03/22/17 13:00 (Lopressor) 50 mg Q12HR PO 03/24/17 09:00 03/29/17 08:56 (Vasotec Inj) 1.25 mg Q6H PRN IV PUSH 03/23/17 13:45 (Catapres) 0.1 mg Q6H PRN PO 03/23/17 13:45 03/29/17 04:15 Metronidazole 100 ml @ 100 mls/hr Q8H IV 03/25/17 04:00 03/29/17 14:31 (Keppra Liq) 500 mg Q12H NG 03/25/17 23:00 03/29/17 13:30 (Deltasone) 10 mg BID NG 03/26/17 21:00 03/29/17 08:56 (Levemir Inj) 8 units Q12HR SQ 03/26/17 21:00 03/29/17 08:56 (NovoLOG SUPPLEMENTAL SCALE) 1 ACHS SLIDING SCALE SQ 03/26/17 17:00 03/27/17 08:32 (D50w (Vial) Inj) 50 ml UNSCH PRN IV PUSH 03/26/17 16:30 (Glucagon Inj) 1 mg UNSCH PRN OTHER 03/26/17 16:30 Aztreonam 2000 mg/ Sodium Chloride 100 ml @ 200 mls/hr Q8H IV 03/26/17 20:00 03/29/17 13:32 (Lac-Hydrin 12% Lotion) 1 applic BID TOPICAL 03/28/17 21:00 03/29/17 08:55 (Ecotrin Ec) 81 mg DAILY PO 03/28/17 14:15 03/29/17 08:57 (Heparin Inj) 5,000 units Q8HR SQ 03/28/17 22:00 03/29/17 14:32 A/P Assessment and Plan Right middle lobe pneumonia/ Sepsis The pt had tachycardia and fevers. MRI of the foot showed concern for osteomyelitis involving the left first distal phalanx. - Continue IV antibiotics as per ID recommendations. Will be able to switch to by mouth upon discharge. - follow culture data. Hypertension Likely exacerbated by pain. - Continue current regimen. - Pain control resumed. Pericardial effusion history Pericardial tamponade- s/p window. - Follow clinically. RA/ Osteoporosis/ immunocompromised Chronic. - continue steroids and monitor. Acute metabolic encephalopathy/ acute CVA History of CVA/ Acute Expressive aphasia/ Chronic left-sided weakness. Encephalopathy improved with discontinuation of gabapentin and increase of steroids to stress dose. HSV PCR of CSF pending. Appreciate neurology and ID assistance. Discussed with infectious disease. MRI with left parietal lobe acute infarct. MRA noted. Palliative care consult appreciated. Hospice has been consulted. - continue steroids. - Follow up with neurology. - Family is interested in discharge to hospice care facility on 03/30/17. Seizure disorder Neurology consult appreciated. - Continue Keppra,. Diabetes mellitus type 2 Glucose much improved. - Continue diabetic diet. - scheduled Levemir and sliding scale. Right first toe infection Podiatry consult appreciated. - Wound care per podiatry. Diarrhea Likely secondary to tube feeding. - will consult GI for further workup. Recommendations appreciated. Malnutrition Not tolerating by mouth intake. - Swallow eval. Diet ordered. - d/c NGT if tolerating diet. Hypophosphatemia Likely secondary to decreased by mouth intake. - Replete and monitor. DVT prophylaxis: Heparin Discharge Planning Anticipate discharge to hospice in the morning Hans Salgado DO Mar 29, 2017 16:09
[2017-03-29] MEDS ORDERED: oxyCODONE/ACETAMINOPHEN 5 MG/325 MG TAB PO PRN (16:15)
[2017-03-29] MEDS ORDERED: BACLOFEN 10 MG TAB PO PRN (16:15)
[2017-03-29] MEDS ORDERED: oxyCODONE/ACETAMINOPHEN 10 MG/325 MG TAB PO PRN (16:15)
--- NOTE | 2017-03-29 16:20 | HHI.HCPN ---
Reason for visit a. To assist with evaluation and management of symptoms including: Pain, debility. b. To assist medical decision maker(s) with: better understanding of current medical conditions; weighing benefits/burdens of medical treatment options; making medical treatment decisions. . Subjective/Interval History Palliative care follow-up for further clarification of goals of care, family support. Patient seen in her room. She was awake, alert to self and situation, intermittently confused but easily reoriented. Patient reports feeling "fine". No pain, nausea or shortness of breath reported during my visit. Frequent diarrhea episodes have continued, GI consulted 03/28/17. Pending stool culture. Patient declining any GI workup such an endoscopy at this time. Infectious diseases is following, Foot MRI with findings most dresser a sickle for osteomyelitis involving the first distal phalanx. Cervical spine MRI with no evidence suggesting abscess. Paraspinal fluid and blood cultures 03/25/17 still pending. Lengthy conversation with patient's family to include daughter Karolina, mother Jemima and pt's brother Kash. Medical update provided to include the above. Reviewed likely trajectory of disease to include continue recurrent infections given general debility, multiple ongoing chronic comorbidities, autoimmune disorders and underlying immunocompromise. I have discussed possibility of further setbacks and progressive overall decline. Family has met with hospice admissions nurse Kayla yesterday, family asking appropriate questions regarding hospice philosophy and benefits. Patient and family actively considering comfort care with hospice. Case discussed with Dr. Amada Corey and Dr. Salgado. Patient verbalizing comfort-directed goals, family supportive. Palliative care and hospice to meet with patient and family tomorrow 03/30/17 at noon for final decision. Patient likely to DC to hospice care center for symptom management of pain, nausea, diarrhea, poor oral intake. . Family/friend interactions See interval note. . Advance Directives Living Will: Never completed Health Care Surrogate: Never completed Durable Power of Implementation Coordinator: Never completed Advance Directive Specifics Health Care Surrogate(s): No advance directives completed. As per [place] statute, healthcare proxy decision maker falls to patient's daughter Karolina Harris. . Significant change in goals: No code. DNR/DNI. Patient and family considering comfort-directed care with hospice. . Objective Vital Signs Date Time Temp Pulse Resp B/P (MAP) Pulse Ox O2 Delivery O2 Flow Rate FiO2 03/29/17 15:48 98.9 110 18 141/81 (101) 91 03/29/17 08:00 Room Air 03/29/17 08:00 98.2 111 18 159/90 (113) 96 03/29/17 08:00 106 03/29/17 04:05 121 03/29/17 04:00 100.3 119 20 172/92 (118) 97 03/29/17 00:00 89 03/29/17 00:00 97.9 105 18 164/91 (115) 93 03/28/17 21:23 Room Air 03/28/17 20:00 127 03/28/17 19:32 98.9 112 20 178/90 (119) 97 03/28/17 16:13 97.9 115 18 171/94 (119) 97 Intake & Output 03/29/17 03/29/17 07:00 19:00 Intake Total 660 ml Balance 660 ml IV Total 660 ml # Voids 3 # Bowel Movements 3 Physical Exam CONSTITUTIONAL/GENERAL: This is an adequately nourished patient in no acute distress. TUBES/LINES/DRAINS: PIV's. NG to left nare. SKIN: No jaundice, rashes, or lesions. Ecchymoses on upper and bilateral lower extremities. Skin temperature appropriate. Not diaphoretic. HEAD: Atraumatic. Normocephalic. EYES: Pupils equal and round and reactive. No scleral icterus. No injection or drainage. ENT: Hearing grossly normal. Nose without bleeding or purulent drainage. Moist oral mucosa. NECK: Trachea midline. Supple, nontender. Cushingoid appearing. CARDIOVASCULAR: Regular rate and rhythm without murmurs, gallops, or rubs. RESPIRATORY/CHEST: Symmetric, unlabored respirations. Clear to auscultation. Breath sounds equal bilaterally. No wheezes, rales, or rhonchi. GASTROINTESTINAL: Abdomen soft, non-tender, nondistended. No hepato-splenomegaly , or palpable masses. No guarding. Bowel sounds present. GENITOURINARY: Without palpable bladder distension. Ocampo catheter in place. MUSCULOSKELETAL: Extremities without clubbing, cyanosis, or edema. RA related deformities to bilateral upper and lower extremities. NEUROLOGICAL: Alert and oriented x self and situation. Intermittently confused , easily reoriented. Verbal, following commands. PSYCHIATRIC: Calm and cooperative. . Diagnostic Tests Laboratory Laboratory Tests Test 03/26/17 16:20 03/26/17 18:15 03/27/17 15:03 03/28/17 06:45 Blood Gas Puncture Site RT RADIAL Blood Gas Patient Temperature 98.6 Blood Gas HCO3 14 mmol/L (22-26) Blood Gas Base Excess -11.3 mmol/L (-2-2) Blood Gas Oxygen Saturation 94 % (90-100) Arterial Blood pH 7.33 (7.380-7.420) Arterial Blood Partial Pressure CO2 26 mmHg (38-42) Arterial Blood Partial Pressure O2 84 mmHg (61-120) Arterial Blood Oxygen Content 14.2 Vol % (12.0-20.0) Arterial Blood Carboxyhemoglobin 1.0 % (0-4) Arterial Blood Methemoglobin 1.3 % (0-2) Blood Gas Hemoglobin 10.7 G/DL (12.0-16.0) Oxygen Delivery Device ROOM AIR CSF Volume (Tube 1) 2.3 ML CSF Supernatant Color (tube 1) CLEAR (CLEAR) CSF Gross Blood (Tube 1) 0 (0) CSF WBC (Tube 1) 36 /MM3 (0-10) CSF RBC (Tube 1) 7 /MM3 (NONE) CSF Volume (Tube 2) 2.0 ML CSF Supernatant Color (tube 2) CLEAR (CLEAR) CSF Gross Blood (Tube 2) 0 (0) CSF Volume (Tube 3) 2.2 ML CSF Supernatant Color (tube 3) CLEAR (CLEAR) CSF Gross Blood (Tube 3) 0 (0) CSF Volume (Tube 4) 3.0 ML CSF Supernatant Color (tube 4) CLEAR (CLEAR) CSF Gross Blood (Tube 4) 0 (0) CSF WBC (Tube 4) 41 /MM3 (0-10) CSF RBC (Tube 4) 7 /MM3 (NONE) CSF Neutrophils 15 % CSF Lymphocytes 30 % CSF Monocytes 17 % CSF Plasma Cells 2 % CSF Histiocytes 36 % CSF Glucose 168 MG/DL (40-80) CSF Total Protein 135.6 MG/DL (15.0-45.0) Herpes Simplex Virus I DNA (PCR) Negative (Negative) Herpes Simplex Virus II DNA (PCR) Negative (Negative) White Blood Count 10.5 TH/MM3 (4.0-11.0) 6.5 TH/MM3 (4.0-11.0) Red Blood Count 4.17 MIL/MM3 (4.00-5.30) 4.20 MIL/MM3 (4.00-5.30) Hemoglobin 11.5 GM/DL (11.6-15.3) 10.9 GM/DL (11.6-15.3) Hematocrit 33.2 % (35.0-46.0) 33.2 % (35.0-46.0) Mean Corpuscular Volume 79.6 FL (80.0-100.0) 79.0 FL (80.0-100.0) Mean Corpuscular Hemoglobin 27.6 PG (27.0-34.0) 26.0 PG (27.0-34.0) Mean Corpuscular Hemoglobin Concent 34.6 % (32.0-36.0) 32.9 % (32.0-36.0) Red Cell Distribution Width 16.3 % (11.6-17.2) 16.2 % (11.6-17.2) Platelet Count 265 TH/MM3 (150-450) 313 TH/MM3 (150-450) Mean Platelet Volume 8.3 FL (7.0-11.0) 8.7 FL (7.0-11.0) Neutrophils (%) (Auto) 91.3 % (16.0-70.0) 78.9 % (16.0-70.0) Lymphocytes (%) (Auto) 3.2 % (9.0-44.0) 8.0 % (9.0-44.0) Monocytes (%) (Auto) 4.7 % (0.0-8.0) 12.2 % (0.0-8.0) Eosinophils (%) (Auto) 0.2 % (0.0-4.0) 0.3 % (0.0-4.0) Basophils (%) (Auto) 0.6 % (0.0-2.0) 0.6 % (0.0-2.0) Neutrophils # (Auto) 9.6 TH/MM3 (1.8-7.7) 5.1 TH/MM3 (1.8-7.7) Lymphocytes # (Auto) 0.3 TH/MM3 (1.0-4.8) 0.5 TH/MM3 (1.0-4.8) Monocytes # (Auto) 0.5 TH/MM3 (0-0.9) 0.8 TH/MM3 (0-0.9) Eosinophils # (Auto) 0.0 TH/MM3 (0-0.4) 0.0 TH/MM3 (0-0.4) Basophils # (Auto) 0.1 TH/MM3 (0-0.2) 0.0 TH/MM3 (0-0.2) CBC Comment DIFF FINAL DIFF FINAL Differential Comment Erythrocyte Sedimentation Rate 44 mm/hr (0-20) Blood Urea Nitrogen 7 MG/DL (7-18) Creatinine 0.24 MG/DL (0.50-1.00) Random Glucose 125 MG/DL (74-106) Albumin 2.0 GM/DL (3.4-5.0) Calcium Level 7.6 MG/DL (8.5-10.1) Phosphorus Level 0.9 MG/DL (2.5-4.9) Magnesium Level 1.8 MG/DL (1.5-2.5) Sodium Level 135 MEQ/L (136-145) Potassium Level 3.4 MEQ/L (3.5-5.1) Chloride Level 104 MEQ/L (98-107) Carbon Dioxide Level 20.9 MEQ/L (21.0-32.0) Anion Gap 10 MEQ/L (5-15) Estimat Glomerular Filtration Rate 308 ML/MIN (>89) Lactic Acid Level 1.4 mmol/L (0.4-2.0) Ammonia 24 MCMOL/L (11-32) Blood Herpes Simplex Virus I (PCR) Negative (Negative) Blood Herpes Simplex Virus II (PCR) Negative (Negative) Test 03/28/17 07:10 03/29/17 08:48 03/29/17 09:26 Blood Urea Nitrogen 6 MG/DL (7-18) 7 MG/DL (7-18) Creatinine LESS THAN 0.15 MG/DL 0.16 MG/DL (0.50-1.00) Random Glucose 91 MG/DL (74-106) 80 MG/DL (74-106) Albumin 2.0 GM/DL (3.4-5.0) Calcium Level 7.5 MG/DL (8.5-10.1) 8.1 MG/DL (8.5-10.1) Phosphorus Level 1.3 MG/DL (2.5-4.9) 2.3 MG/DL (2.5-4.9) Magnesium Level 1.8 MG/DL (1.5-2.5) 1.9 MG/DL (1.5-2.5) Sodium Level 138 MEQ/L (136-145) 134 MEQ/L (136-145) Potassium Level 3.6 MEQ/L (3.5-5.1) 3.7 MEQ/L (3.5-5.1) Chloride Level 104 MEQ/L (98-107) 101 MEQ/L (98-107) Carbon Dioxide Level 24.8 MEQ/L (21.0-32.0) 25.6 MEQ/L (21.0-32.0) Anion Gap 9 MEQ/L (5-15) 7 MEQ/L (5-15) Estimat Glomerular Filtration Rate 531 ML/MIN (>89) 493 ML/MIN (>89) White Blood Count 5.3 TH/MM3 (4.0-11.0) Red Blood Count 4.27 MIL/MM3 (4.00-5.30) Hemoglobin 11.3 GM/DL (11.6-15.3) Hematocrit 34.3 % (35.0-46.0) Mean Corpuscular Volume 80.2 FL (80.0-100.0) Mean Corpuscular Hemoglobin 26.5 PG (27.0-34.0) Mean Corpuscular Hemoglobin Concent 33.0 % (32.0-36.0) Red Cell Distribution Width 16.4 % (11.6-17.2) Platelet Count 373 TH/MM3 (150-450) Mean Platelet Volume 7.7 FL (7.0-11.0) Result Diagram: 03/29/17 0848 03/29/17 0848 Microbiology Microbiology Date/Time Source Procedure Growth Status 03/26/17 18:15 Cerebral Spinal Fluid Lumbar Puncture Fungal Smear - Final NO FUNGAL ELEMENTS SEEN. Resulted 03/26/17 18:15 Cerebral Spinal Fluid Lumbar Puncture Fungal Culture Pending Resulted 03/26/17 18:15 Cerebral Spinal Fluid Lumbar Puncture Acid Fast Stain - Final NO ACID FAST BACILLI SEEN Resulted 03/26/17 18:15 Cerebral Spinal Fluid Lumbar Puncture Mycobacterial Culture Pending Resulted 03/26/17 18:15 Cerebral Spinal Fluid Lumbar Puncture Gram Stain - Final Complete 03/26/17 18:15 Cerebral Spinal Fluid Lumbar Puncture CSF Culture - Final NO GROWTH IN 72 HOURS Complete 03/29/17 09:26 Stool Stool Cryptosporidium Exam - Final NEGATIVE - NO CRYPTOSPORIDIUM ANTIGEN... Complete 03/29/17 09:26 Stool Stool Giardia Antigen (YING) - Final NEGATIVE - NO GIARDIA ANTIGEN DETECTE... Complete 03/29/17 09:26 Stool Stool Pending Received Imaging Last 24 hours Impressions Head Magnetic Resonance Angiography 03/29/17 0000 Signed Impressions: Service Date/Time: March 11:50 - CONCLUSION: 1. Unremarkable [place] MRA examination. Specifically, no large vessel occlusion or significant flow limiting stenosis. Jorden Nina MD Foot MRI 03/29/17 0000 Signed Impressions: Service Date/Time: March 11:50 - CONCLUSION: 1. Limited suboptimal study secondary to motion artifact. 2. Findings most characteristic of osteomyelitis involving the first distal phalanx. 3. Soft tissue edema over the first digit with suggestion of dorsal ulceration. Hans Hidalgo MD Cervical Spine MRI 03/29/17 0000 Signed Impressions: Service Date/Time: March 11:50 - CONCLUSION: 1. Suboptimal visualization due to susceptibility artifact. 2. Status post multilevel fusion from C2-C6 level which does not appear significantly changed. 3. Hypertrophic ridging at C5-6 with mass effect on the anterior thecal sac. This does not appear significantly changed. There is borderline central canal stenosis. 4. No evidence to suggest abscess however visualization is suboptimal secondary to lack of intravenous contrast and susceptibility artifact. Hans Hidalgo MD Procedures * 03/26/17 -LP . Assessment and Plan Disease Oriented Problem List: (1) Acute metabolic encephalopathy (2) Pneumonia (3) Sepsis (4) Rheumatoid arthritis (5) Physical deconditioning Symptom Scale: (1) Debility 0-10 Scale: Unable to quantify (2) Pain 0-10 Scale: Unable to quantify Pertinent Non-Medical Issues Psychosocial: Patient was born and raised in [place], lived in [place] for some time, she now lives in [place] with her fisamir and her daughter Karolina, age 22. Patient is . 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 Highest level of education is high school. Spiritual: Worship heidi, welcomes [employer] black belt support. Legal: No advance directives completed. Ethical issues impacting care: No ethical issues identified. . Important Contacts Karolina daughter: [phone] Jemima, mother: [phone] mini Tim: [phone] . Prognosis Mrs. Harris is a 46-year-old female with a medical history significant for rheumatoid arthritis, diabetes mellitus, hypertension, seizure activity, OA and history of CVA. Patient currently admitted secondary to sepsis, pneumonia. Recent acute hospitalization in November 2016 secondary to encephalitis, bilateral lower lobe cellulitis and C. difficile colitis. Patient with progressive decline, worsen since November 2016. Patient at high risk for further complications, are aggressive decline and given general debility, multiple ongoing chronic comorbidities, autoimmune disorders and underlying immunocompromise state. . Code Status: No Code Plan * CODE STATUS: DNR/DNI. * HEALTHCARE DECISION-MAKING: Patient with limited participation and medical decision-making given clinical condition, encephalopathy. Regaining capacity as encephalopathy improves. No advance directives completed. As per [place] statute, healthcare proxy decision-making falls to patient's only daughter Karolina Harris. Daughter is supported by patient's mother Jemima and gabriel Tim. Palliative care recommends shared decision-making with daughter given the above. * GOALS OF CARE: Patient and family actively considering comfort-directed care with hospice. Patient verbalizing comfort-directed goals, family supportive. Pt and family to meet with palliative care and hospice on Sunday03/30/17 at noon for final decision. Patient likely to DC to hospice care center for symptom management of pain, nausea, diarrhea, poor oral intake. * SYMPTOMS: = Pain, acute on chronic. Secondary to RA, chronic debility, bed/ chair bedbound status, colitis. Morphine, Neurontin and baclofen have been discontinued given altered mental status. Palliative care recommends restarting Neurontin and baclofen as encephalopathy has improved. = Debility: Progressive. Worsen since acute hospitalization in November 2016. PT recommended once patient is clinically stable. Family considering hospice upon discharge. * Case discussed with Dr. Amada Corey, Dr. Salgado and hospice admissions nurse Valencia. * Palliative care contact information has been provided to patient and family. * Palliative care will continue to follow-up for further clarifications of goals of care as patient's clinical course continues to evolve. . Time Spent Total Floor Time (mins): 44 (Total time to include review medical records, physical exam, lengthy goals of care conversation with patient and family, case discussion with Dr. Amada Corey and Dr. Salgado. ) >50% Counseling/Coord of Care: Yes Attestation To help prompt me to consider important information that might be impacting today's encounter and assessment, information from prior notes written by myself or my colleagues may have been "brought forward" into today's note. My signature on this note, however, is an attestation that I personally performed the exam, history, and/or decision-making noted today, and, unless otherwise indicated, the interactions with patient, family, and staff as well as the review of records all occurred today. I also attest that the listed assessment and stated plan reflect my best clinical judgment today based on the combination of historical information, prior notes, and today's exam/ interactions. When time spent is documented, it refers only to time spent today by the signer, or if indicated, combined time spent today by collaborating physician/nurse practitioner. Teri Carlin Mar 29, 2017 16:20
[2017-03-29] MEDS: GABAPENTIN 400 MG CAP PO SCH (17:57)
[2017-03-29] MEDS ORDERED: POTASSIUM PHOSPHATE INJ 15 MMOL in SODIUM CHLOR 0.9% 250 ML INJ 250 ML IV ONE (18:00)
[2017-03-29 18:38] LABS: CSF CRYPTOCOCCUS AG CONF ND (NOT DETECTD)
[2017-03-29 19:54] LABS: CSF CRYPTOCOCCUS ANTIGEN NOT DETECTED (NEGATIVE)
[2017-03-29] MEDS ORDERED: AZTREONAM INJ 2,000 MG in SODIUM CHLORIDE 0.9% INJ 100 ML IV SCH (21:00)
[2017-03-30 00:07] VITALS: BP 143/86; PULSE 105; RESP 18; TEMP 98.5; O2SAT 95
[2017-03-30] MEDS: FREE WATER PO SCH ×3 (00:26→09:35)
[2017-03-30 03:45] VITALS: PULSE 102
[2017-03-30] MEDS: metroNIDAZOLE 500 MG INJ 100 ML IV SCH ×2 (04:03→13:18)
[2017-03-30 05:05] VITALS: BP 141/90; PULSE 105; RESP 18; TEMP 98.6; O2SAT 95
[2017-03-30] MEDS: HEPARIN SODIUM - SQ 10,000 UNITS/ML VIAL SQ SCH ×2 (05:13→13:16)
[2017-03-30] MEDS: AZTREONAM INJ 2,000 MG in SODIUM CHLORIDE 0.9% INJ 100 ML IV SCH ×2 (05:14→13:24)
[2017-03-30] MEDS: INSULIN ASPART SUPPLEMENTAL SCALE SQ SCH ×2 (08:00→12:00)
[2017-03-30 08:04] VITALS: BP 180/97; PULSE 112; RESP 21; TEMP 98.3; O2SAT 94
[2017-03-30] MEDS: INSULIN DETEMIR 100 UNITS/ML VIAL SQ SCH (09:00)
[2017-03-30] MEDS: predniSONE 5 MG TAB NG SCH (09:37)
[2017-03-30] MEDS: FAMOTIDINE 20 MG TAB PO SCH (09:37)
[2017-03-30] MEDS: LACTOBACILLUS ACIDOPHILUS TAB PO SCH ×2 (09:37→13:17)
[2017-03-30] MEDS: METOPROLOL TARTRATE 50 MG TAB PO SCH (09:37)
[2017-03-30] MEDS: ASPIRIN EC 81 MG TABEC PO SCH (09:38)
[2017-03-30] MEDS: GABAPENTIN 400 MG CAP PO SCH ×2 (09:38→13:16)
[2017-03-30] MEDS: SODIUM CHLORIDE 0.9% FLUSH 10 ML FLUSH IV FLUSH SCH (09:38)
[2017-03-30] MEDS: LACTIC ACID (AMMONIUM LACTATE) 12% LOTION 225 GM BTL TOPICAL SCH (09:39)
[2017-03-30] MEDS: levETIRAcetam 500 MG/5 ML UDC NG SCH (09:42)
[2017-03-30 12:04] VITALS: BP 149/72; PULSE 72; RESP 20; TEMP 98.9; O2SAT 97
--- NOTE | 2017-03-30 13:18 | ECHRPT ---
Indication: endocarditis CONCLUSIONS Normal left ventricular size. Minimal basal septal prominence without evidence for left ventricular outflow tract gradient or systolic motion of the anterior mitral leaflet. The left ventricular systolic fun ction is normal with an estimated ejection fraction in the range of 60-65%. Normal wall motion. Trace mitral valve regurgitation. There is mild tricuspid valve regurgitation. No definite valvular vegetation identified. If clinically indicated, recommend transesophageal echocardiography. BP: / HR: Rhythm: MEASUREMENTS (Male / Female) Normal Values Technical Quality:Fair 2D ECHO LV Diastolic Diameter PLAX 3.7 cm 4.2 - 5.9 / 3.9 - 5.3 cm LV Systolic Diameter PLAX 2.8 cm IVS Diastolic Thickness 1.7 cm 0.6 - 1.0 / 0.6 - 0.9 cm LVPW Diastolic Thickness 1.1 cm 0.6 - 1.0 / 0.6 - 0.9 cm LV Relative Wall Thickness 0.8 RV Internal Dim ED PLAX 2.4 cm FINDINGS LEFT VENTRICLE Normal left ventricular size. Minimal basal septal prominence without evidence for left ventricular outflow tract gradient or systolic motion of the anterior mitral leaflet. The left ventricular systolic fun ction is normal with an estimated ejection fraction in the range of 60-65%. Normal wall motion. RIGHT VENTRICLE Normal right ventricular size and systolic function. LEFT ATRIUM The left atrial size is normal. RIGHT ATRIUM The right atrial size is normal. ATRIAL SEPTUM Normal atrial septal thickness without atrial level shunting by limited color doppler interrogation. AORTA The aortic root and proximal ascending aorta are normal in size on limited imaging. MITRAL VALVE Structurally normal mitral valve. Trace mitral valve regurgitation. AORTIC VALVE Trileaflet aortic valve. Moderate calcification in the aortic annulus. No aortic valve stenosis. No aortic valve regurgitation. TRICUSPID VALVE Structurally normal tricuspid valve. There is mild tricuspid valve regurgitation. PULMONARY VALVE The pulmonary valve is not well visualized. VESSELS The inferior vena cava is normal in size. PERICARDIUM No pericardial effusion. Kendall Lemons MD (Electronically Signed) Final Date:30 March 2017 13:17
[2017-03-30] MEDS ORDERED: OXYC1TAB63 PO (13:39)
[2017-03-30] MEDS ORDERED: LEVEMIR SQ (13:39)
[2017-03-30] MEDS ORDERED: PRED5TAB PO (13:39)
--- NOTE | 2017-03-30 13:44 | HHI.DS ---
Discharge Summary Admission Date Mar 21, 2017 at 13:08 Discharge Date: Mar 30, 2017 Admitting Diagnosis sepsis, right middle lobe pneumonia (1) Acute embolic stroke ICD Code: I63.9 - Cerebral infarction, unspecified Diagnosis: Principal Status: Acute (2) Debility ICD Code: R53.81 - Other malaise (3) Acute metabolic encephalopathy ICD Code: G93.41 - Metabolic encephalopathy Diagnosis: Principal Status: Acute (4) Subungual hematoma of foot ICD Code: S90.229A - Contusion of unspecified lesser toe(s) with damage to nail , initial encounter Status: Acute (5) Onycholysis of toenail ICD Code: L60.1 - Onycholysis Status: Acute (6) Rheumatoid arthritis ICD Code: M06.9 - Rheumatoid arthritis, unspecified Diagnosis: Principal (7) Physical deconditioning ICD Code: R53.81 - Other malaise Diagnosis: Principal (8) Decreased appetite ICD Code: R63.0 - Anorexia (9) Sepsis ICD Code: A41.9 - Sepsis, unspecified organism Diagnosis: Principal (10) Bacteremia ICD Code: R78.81 - Bacteremia Diagnosis: Principal Procedures NONE Brief History - From Admission History from patient, her fianc at the bedside, ER physician communication, and review of medical records. Patient is awake, alert, oriented at the time of my exam. She is actually able to give better history than her fianc at the bedside. She is known to me from her prior hospitalization date on December 06, 2016. At that time, she presented with acute encephalopathy and family at that time gave her a history saying that patient always gets encephalopathic as this evening for a simple UTI. They have also given me history with her recurrent C. difficile at that time for which stool studies were sent and found to be positive for C. difficile. She was evaluated by infectious disease specialist while in hospital. Because her encephalopathy was so severe at that time, there was also thought of encephalitis/meningitis. However all workup was negative. CSF WBC was 15. Her C. difficile was positive. She was hospitalized at that time from December 06, 2016 to December 19, 2016 This time, the family stated that because they know she gets confused very easily with infections, they decided to bring her here early. They realize that she was getting somewhat confused at home. Patient at the time of exam by the ER physician and myself, patient was entirely awake, alert, oriented. She reports that she did have fevers at home which was 12. She denies any cough. However she reports some rattling in her chest. She reports of frequent urination and feeling off a lot of pressure in her bladder area. And when she goes to the bathroom usually, she would have difficulty going because of the pressure. She herself denies any diarrhea at the time of my interview. She reports that she finished her treatment for C. difficile with medications around January. Patient denies any sores or ulcers. No reports are invasive lines. CBC/BMP: 03/29/17 0848 03/29/17 2114 Significant Findings Laboratory Tests Test 03/27/17 15:03 03/28/17 06:45 03/28/17 07:10 03/29/17 08:48 Hemoglobin 11.5 GM/DL (11.6-15.3) 10.9 GM/DL (11.6-15.3) 11.3 GM/DL (11.6-15.3) Hematocrit 33.2 % (35.0-46.0) 33.2 % (35.0-46.0) 34.3 % (35.0-46.0) Mean Corpuscular Volume 79.6 FL (80.0-100.0) 79.0 FL (80.0-100.0) Neutrophils (%) (Auto) 91.3 % (16.0-70.0) 78.9 % (16.0-70.0) Lymphocytes (%) (Auto) 3.2 % (9.0-44.0) 8.0 % (9.0-44.0) Neutrophils # (Auto) 9.6 TH/MM3 (1.8-7.7) Lymphocytes # (Auto) 0.3 TH/MM3 (1.0-4.8) 0.5 TH/MM3 (1.0-4.8) Erythrocyte Sedimentation Rate 44 mm/hr (0-20) Creatinine 0.24 MG/DL (0.50-1.00) LESS THAN 0.15 MG/DL 0.16 MG/DL (0.50-1.00) Random Glucose 125 MG/DL (74-106) Albumin 2.0 GM/DL (3.4-5.0) 2.0 GM/DL (3.4-5.0) Calcium Level 7.6 MG/DL (8.5-10.1) 7.5 MG/DL (8.5-10.1) 8.1 MG/DL (8.5-10.1) Phosphorus Level 0.9 MG/DL (2.5-4.9) 1.3 MG/DL (2.5-4.9) 2.3 MG/DL (2.5-4.9) Sodium Level 135 MEQ/L (136-145) 134 MEQ/L (136-145) Potassium Level 3.4 MEQ/L (3.5-5.1) Carbon Dioxide Level 20.9 MEQ/L (21.0-32.0) Mean Corpuscular Hemoglobin 26.0 PG (27.0-34.0) 26.5 PG (27.0-34.0) Monocytes (%) (Auto) 12.2 % (0.0-8.0) Blood Urea Nitrogen 6 MG/DL (7-18) Test 03/29/17 21:14 03/30/17 06:18 Imaging Last Impressions Neck Magnetic Resonance Angiography 03/29/17 0000 Signed Impressions: Service Date/Time: March 11:50 - CONCLUSION: 1. Limited visualization of portions of the proximal left carotid and vertebral arteries. 2. Otherwise, no significant focal flow-limiting stenosis. Jorden Nina MD Head/Brain Mag Res Venography 03/29/17 0000 Signed Impressions: Service Date/Time: March 11:50 - CONCLUSION: Normal exam. Mukul Gary Jr., MD Head Magnetic Resonance Angiography 03/29/17 0000 Signed Impressions: Service Date/Time: March 11:50 - CONCLUSION: 1. Unremarkable igiugig of Guerra MRA examination. Specifically, no large vessel occlusion or significant flow limiting stenosis. Jorden Nina MD Foot MRI 03/29/17 0000 Signed Impressions: Service Date/Time: March 11:50 - CONCLUSION: 1. Limited suboptimal study secondary to motion artifact. 2. Findings most characteristic of osteomyelitis involving the first distal phalanx. 3. Soft tissue edema over the first digit with suggestion of dorsal ulceration. Hans Hidalgo MD Cervical Spine MRI 03/29/17 0000 Signed Impressions: Service Date/Time: March 11:50 - CONCLUSION: 1. Suboptimal visualization due to susceptibility artifact. 2. Status post multilevel fusion from C2-C6 level which does not appear significantly changed. 3. Hypertrophic ridging at C5-6 with mass effect on the anterior thecal sac. This does not appear significantly changed. There is borderline central canal stenosis. 4. No evidence to suggest abscess however visualization is suboptimal secondary to lack of intravenous contrast and susceptibility artifact. Hans Hidalgo MD Brain MRI 03/26/17 1605 Signed Impressions: Service Date/Time: Sunday, March 26, 2017 18:55 - CONCLUSION: 1. No acute infarct, acute hemorrhage, midline shift or extra-axial fluid collections. 2. Severe diffuse periventricular white matter signal abnormalities and diffuse pontine signal abnormality which is nonspecific but unchanged compared to November 2016. 3. No abnormal enhancing lesion noted. 4. 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 Jonny Fine MD ADDENDUM: A focal cluster of subcentimeter restricted diffusion seen in the left parietal lobe white matter, series 7 image 41, compatible with a localized acute or subacute infarct. Marcus Devi MD Lumbar Puncture Fluoroscopy 03/26/17 0000 Signed Impressions: Service Date/Time: Sunday, March 26, 2017 19:11 - CONCLUSION: Uncomplicated fluoroscopically guided lumbar puncture. Mukul Gary Jr., MD Abdomen X-Ray 03/25/17 0000 Signed Impressions: Service Date/Time: Saturday, March 25, 2017 11:26 - CONCLUSION: NG tube overlying the midline esophagus with the proximal port well above the level of the gastroesophageal junction. Recommend advancement approximately 10 cm. Aditi Rodriguez MD Head CT 03/22/17 0000 Signed Impressions: Service Date/Time: February 20:16 - CONCLUSION: No evidence of acute cardiopulmonary disease. Prominent chronic white matter changes for a patient this age. Marcus Devi MD Abdomen/Pelvis CT 03/22/17 0000 Signed Impressions: Service Date/Time: February 20:18 - CONCLUSION: 1. Mild, diffuse colitis in the proper clinical setting. This is nonspecific, presumably infectious or inflammatory. No abscess, perforation or obstruction. 2. Chronic/unchange findings otherwise including multiple nonacute fractures and a tiny nonobstructing stone of the right kidney. Marcus Devi MD Chest X-Ray 03/21/17 1006 Signed Impressions: Service Date/Time: Tuesday, March 21, 2017 10:16 - CONCLUSION: Right midlung and left basilar scarring versus minimal infiltrates. Garret Weber MD Toe X-Ray 03/21/17 0000 Signed Impressions: Service Date/Time: Tuesday, March 21, 2017 15:45 - CONCLUSION: 1. 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 2. Prior compression screw fixation of the first MTP. 3. No acute fracture. Jorden Nina MD PE at Discharge GENERAL: Appears comfortable. Patient awake, alert. SKIN: Warm and dry. HEAD: Normocephalic. EYES: No scleral icterus. No injection or drainage. NECK: Supple, trachea midline. No JVD. CARDIOVASCULAR: Tachycardic without murmurs, gallops, or rubs. RESPIRATORY: Breath sounds equal bilaterally. No accessory muscle use. GASTROINTESTINAL: Abdomen soft, non-tender, nondistended. MUSCULOSKELETAL: No cyanosis, or edema. Lower extremities tender to palpation. BACK: Nontender without obvious deformity. No CVA tenderness. PSYCH: Calm. Pt update on day of discharge The patient was feeling well. She said that she had the meeting earlier and was agreeable with going to a hospice facility, though she did have questions about that. No acute complaints at this time. Discussed with nursing and family at the bedside. Hospital Course Right middle lobe pneumonia/ Sepsis The pt had tachycardia and fevers. MRI of the foot showed concern for osteomyelitis involving the left first distal phalanx. She was found to have bacteremia. Echo negative for vegetation. TOMÁS was thought to be too high risk of a procedure per cardiology. She was continued on IV antibiotics as per ID recommendations. Will switch to by mouth regimen upon discharge. Acute metabolic encephalopathy/ acute CVA History of CVA/ acute Expressive aphasia/ chronic left-sided weakness. Encephalopathy improved with discontinuation of gabapentin and increase of steroids to stress dose. HSV PCR of CSF was negative. Neurology was consulted. MRI with left parietal lobe acute infarct. Further imaging was ordered by neurology. Aspirin was started. She was continued on Keppra. She worked with PT/ OT/ ST. Palliative care was consulted. Hospice was then consulted. The pt and her family agreed to discharge to a hospice care facility on 03/30/17. Diabetes mellitus type 2 Glucose was well controlled. She will be discharged on a lower dose of long acting insulin. Toe infection Podiatry was consulted and the pt received wound care. Diarrhea GI was consulted but the pt deferred further workup. She will take Imodium as needed. Malnutrition She had an NGT placed. Her diet was advanced by speech therapy. Pt Condition on Discharge: Stable Discharge Disposition: Hospice/Med Facility Discharge Time: > 30 minutes Discharge Instructions DIET: Follow Instructions for: As Tolerated, No Restrictions Speech Therapy-Diet Recommends: Mechanical Soft Activities you can perform: Weight Bearing as Pancho Follow up Referrals: PCP Follow-up New Medications: Levofloxacin (Levaquin) 750 Mg Tablet 750 MG PO DAILY for Infection for 7 Days, #7 TAB 0 Refills Metronidazole (Flagyl) 500 Mg Tab 500 MG PO TID for Infection for 7 Days, TAB 0 Refills Prednisone (Prednisone) 5 Mg Tab 5 MG PO DAILY for RA, #30 TAB 0 Refills Insulin Detemir Inj (Levemir Inj) 1,000 unit/ 10 ML Vial 10 UNITS SQ HS for Blood Sugar Management, #30 INJECTION Do not mix with any other Insulin. Oxycodone HCl/Acetaminophen (Oxycodone-Acetaminophen 5-325) 5 Mg-325 Mg Tablet 1 TAB PO Q4H PRN for PAIN SCALE 1 TO 10, #30 TAB Continued Medications: Baclofen (Baclofen) 10 Mg Tab 10 MG PO Q8HR PRN for MUSCLE SPASMS, #90 TAB 0 Refills Citalopram (Citalopram) 20 Mg Tab 20 MG PO DAILY for Control Depression, #30 TAB 0 Refills Gabapentin (Gabapentin) 800 Mg Tab 800 MG PO TID, #90 TAB 0 Refills Hydroxyzine HCl (Hydroxyzine HCl) 50 Mg Tab 50 MG PO BID PRN for ITCHING, #60 TAB 0 Refills Lactobacillus Acidophilus (Acidophilus/l-Sporogenes) 35 Million Cell-25 Million Cell Tab 1 TAB PO TID for Probiotic, #30 TAB Leflunomide (Leflunomide) 20 Mg Tab 20 MG PO DAILY, #30 TAB Levetiracetam (Keppra) 500 Mg Tab 500 MG PO Q12HR for Seizure Control, #60 TAB Metoprolol Tartrate (Metoprolol Tartrate) 50 Mg Tab 50 MG PO BID, #60 TAB 0 Refills Oxybutynin (Ditropan) 5 Mg Tab 5 MG PO Q12HR PRN for URGENCY, #60 TAB 0 Refills Discontinued Medications: Insulin Glargine Inj (Lantus Inj) 1,000 Unit/10 Ml Vial 40 UNITS SQ HS for Blood Sugar Management, #1 VIAL 0 Refills Oxycodone-Acetaminophen (Oxycodone-Acetaminophen) 10-325 mg Tab 1 TAB PO Q6H PRN for PAIN, #120 TAB 0 Refills Hans Salgado DO Mar 30, 2017 13:44
--- NOTE | 2017-03-30 13:45 | HHI.DCPOC ---
Discharge Care Plan Diagnosis: (1) Decreased appetite (2) Bacteremia (3) Acute embolic stroke (4) Debility (5) Acute metabolic encephalopathy (6) Rheumatoid arthritis (7) Physical deconditioning (8) Sepsis Goals to Promote Your Health * To prevent worsening of your condition and complications * To maintain your health at the optimal level Directions to Meet Your Goals Take your medications as prescribed Follow your dietary instruction Follow activity as directed Keep your appointments as scheduled Take your immunizations and boosters as scheduled If your symptoms worsen call your PCP, if no PCP go to Urgent Care Center or Emergency Room Smoking is Dangerous to Your Health. Avoid second hand smoke Call the 24-hour hour crisis hotline for domestic abuse at Hans Salgado DO Mar 30, 2017 13:45
--- NOTE | 2017-03-30 13:58 | HHI.HCPN ---
Reason for visit a. To assist with evaluation and management of symptoms including: Pain, debility. b. To assist medical decision maker(s) with: better understanding of current medical conditions; weighing benefits/burdens of medical treatment options; making medical treatment decisions. . Subjective/Interval History Palliative care follow-up for further clarification of goals of care, family support. Patient seen in her room. She was awake, alert to self and situation, intermittently confused but easily reoriented. Patient reports feeling nauseous. Denies pain or shortness of breath. Patient remains afebrile, stable hemodynamically. 2-D echocardiogram revealing EF of 60-65%, trace mitral valve regurgitation, mild tricuspid valve regurgitation, no definitive valvular vegetation identified. Conversation with patient and her family to include daughter Karolina, mother Jemima and pt's anika Tim. Medical update provided to include the above. Reviewed likely trajectory of disease to include continue recurrent infections given general debility, multiple ongoing chronic comorbidities, autoimmune disorders and underlying immunocompromise. Patient and family has already met with hospice, they have elected to transition patient to comfort-directed care with hospice. Wishing to be discharged to hospice care center for symptom management. Discussed prognosis given patient's aggressive overall decline. Family supportive of patient's wishes. . Family/friend interactions See interval note. . Advance Directives Living Will: Never completed Health Care Surrogate: Never completed Durable Power of Medical Front Desk Specialist: Never completed Advance Directive Specifics Health Care Surrogate(s): No advance directives completed. As per [place] statute, healthcare proxy decision maker falls to patient's daughter Karolina Harris. . Significant change in goals: No code. DNR/DNI. Patient electing comfort-directed care with hospice. . Objective Vital Signs Date Time Temp Pulse Resp B/P (MAP) Pulse Ox O2 Delivery O2 Flow Rate FiO2 03/30/17 12:04 98.9 72 20 149/72 (97) 97 03/30/17 10:51 18 03/30/17 08:04 98.3 112 21 180/97 (124) 94 03/30/17 08:00 Room Air 03/30/17 05:05 98.6 105 18 141/90 (107) 95 03/30/17 03:45 102 03/30/17 00:07 98.5 105 18 143/86 (105) 95 03/29/17 23:50 112 03/29/17 20:40 100.4 122 18 144/78 (100) 94 03/29/17 20:25 94 Nasal Cannula 4.00 03/29/17 19:49 124 03/29/17 16:00 110 03/29/17 15:48 98.9 110 18 141/81 (101) 91 Intake & Output 03/30/17 03/30/17 07:00 19:00 Intake Total 0 ml Balance 0 ml Intake Oral 0 ml # Voids 6 # Bowel Movements 3 Physical Exam CONSTITUTIONAL/GENERAL: This is an adequately nourished patient in no acute distress. TUBES/LINES/DRAINS: PIV's. NG to left nare. SKIN: No jaundice, rashes, or lesions. Ecchymoses on upper and bilateral lower extremities. Skin temperature appropriate. Not diaphoretic. HEAD: Atraumatic. Normocephalic. EYES: Pupils equal and round and reactive. No scleral icterus. No injection or drainage. ENT: Hearing grossly normal. Nose without bleeding or purulent drainage. Moist oral mucosa. NECK: Trachea midline. Supple, nontender. Cushingoid appearing. CARDIOVASCULAR: Regular rate and rhythm without murmurs, gallops, or rubs. RESPIRATORY/CHEST: Symmetric, unlabored respirations. Clear to auscultation. Breath sounds equal bilaterally. No wheezes, rales, or rhonchi. GASTROINTESTINAL: Abdomen soft, non-tender, nondistended. No hepato-splenomegaly , or palpable masses. No guarding. Bowel sounds present. GENITOURINARY: Without palpable bladder distension. Ocampo catheter in place. MUSCULOSKELETAL: Extremities without clubbing, cyanosis, or edema. RA related deformities to bilateral upper and lower extremities. NEUROLOGICAL: Alert and oriented x self and situation. Intermittently confused , easily reoriented. Verbal, following commands. PSYCHIATRIC: Calm and cooperative. . Diagnostic Tests Laboratory Laboratory Tests Test 03/27/17 15:03 03/28/17 06:45 03/28/17 07:10 03/29/17 08:48 White Blood Count 10.5 TH/MM3 (4.0-11.0) 6.5 TH/MM3 (4.0-11.0) 5.3 TH/MM3 (4.0-11.0) Red Blood Count 4.17 MIL/MM3 (4.00-5.30) 4.20 MIL/MM3 (4.00-5.30) 4.27 MIL/MM3 (4.00-5.30) Hemoglobin 11.5 GM/DL (11.6-15.3) 10.9 GM/DL (11.6-15.3) 11.3 GM/DL (11.6-15.3) Hematocrit 33.2 % (35.0-46.0) 33.2 % (35.0-46.0) 34.3 % (35.0-46.0) Mean Corpuscular Volume 79.6 FL (80.0-100.0) 79.0 FL (80.0-100.0) 80.2 FL (80.0-100.0) Mean Corpuscular Hemoglobin 27.6 PG (27.0-34.0) 26.0 PG (27.0-34.0) 26.5 PG (27.0-34.0) Mean Corpuscular Hemoglobin Concent 34.6 % (32.0-36.0) 32.9 % (32.0-36.0) 33.0 % (32.0-36.0) Red Cell Distribution Width 16.3 % (11.6-17.2) 16.2 % (11.6-17.2) 16.4 % (11.6-17.2) Platelet Count 265 TH/MM3 (150-450) 313 TH/MM3 (150-450) 373 TH/MM3 (150-450) Mean Platelet Volume 8.3 FL (7.0-11.0) 8.7 FL (7.0-11.0) 7.7 FL (7.0-11.0) Neutrophils (%) (Auto) 91.3 % (16.0-70.0) 78.9 % (16.0-70.0) Lymphocytes (%) (Auto) 3.2 % (9.0-44.0) 8.0 % (9.0-44.0) Monocytes (%) (Auto) 4.7 % (0.0-8.0) 12.2 % (0.0-8.0) Eosinophils (%) (Auto) 0.2 % (0.0-4.0) 0.3 % (0.0-4.0) Basophils (%) (Auto) 0.6 % (0.0-2.0) 0.6 % (0.0-2.0) Neutrophils # (Auto) 9.6 TH/MM3 (1.8-7.7) 5.1 TH/MM3 (1.8-7.7) Lymphocytes # (Auto) 0.3 TH/MM3 (1.0-4.8) 0.5 TH/MM3 (1.0-4.8) Monocytes # (Auto) 0.5 TH/MM3 (0-0.9) 0.8 TH/MM3 (0-0.9) Eosinophils # (Auto) 0.0 TH/MM3 (0-0.4) 0.0 TH/MM3 (0-0.4) Basophils # (Auto) 0.1 TH/MM3 (0-0.2) 0.0 TH/MM3 (0-0.2) CBC Comment DIFF FINAL DIFF FINAL Differential Comment Erythrocyte Sedimentation Rate 44 mm/hr (0-20) Blood Urea Nitrogen 7 MG/DL (7-18) 6 MG/DL (7-18) 7 MG/DL (7-18) Creatinine 0.24 MG/DL (0.50-1.00) LESS THAN 0.15 MG/DL 0.16 MG/DL (0.50-1.00) Random Glucose 125 MG/DL (74-106) 91 MG/DL (74-106) 80 MG/DL (74-106) Albumin 2.0 GM/DL (3.4-5.0) 2.0 GM/DL (3.4-5.0) Calcium Level 7.6 MG/DL (8.5-10.1) 7.5 MG/DL (8.5-10.1) 8.1 MG/DL (8.5-10.1) Phosphorus Level 0.9 MG/DL (2.5-4.9) 1.3 MG/DL (2.5-4.9) 2.3 MG/DL (2.5-4.9) Magnesium Level 1.8 MG/DL (1.5-2.5) 1.8 MG/DL (1.5-2.5) 1.9 MG/DL (1.5-2.5) Sodium Level 135 MEQ/L (136-145) 138 MEQ/L (136-145) 134 MEQ/L (136-145) Potassium Level 3.4 MEQ/L (3.5-5.1) 3.6 MEQ/L (3.5-5.1) 3.7 MEQ/L (3.5-5.1) Chloride Level 104 MEQ/L (98-107) 104 MEQ/L (98-107) 101 MEQ/L (98-107) Carbon Dioxide Level 20.9 MEQ/L (21.0-32.0) 24.8 MEQ/L (21.0-32.0) 25.6 MEQ/L (21.0-32.0) Anion Gap 10 MEQ/L (5-15) 9 MEQ/L (5-15) 7 MEQ/L (5-15) Estimat Glomerular Filtration Rate 308 ML/MIN (>89) 531 ML/MIN (>89) 493 ML/MIN (>89) Lactic Acid Level 1.4 mmol/L (0.4-2.0) Ammonia 24 MCMOL/L (11-32) Blood Herpes Simplex Virus I (PCR) Negative (Negative) Blood Herpes Simplex Virus II (PCR) Negative (Negative) Test 03/29/17 21:14 03/30/17 06:18 Random Glucose 92 MG/DL (74-106) Result Diagram: 03/29/17 0848 03/29/172113 Microbiology Microbiology Date/Time Source Procedure Growth Status 03/29/17 09:26 Stool Stool Cryptosporidium Exam - Final NEGATIVE - NO CRYPTOSPORIDIUM ANTIGEN... Complete 03/29/17 09:26 Stool Stool Giardia Antigen (YING) - Final NEGATIVE - NO GIARDIA ANTIGEN DETECTE... Complete 03/29/17 09:26 Stool Stool - Final NO ENTERIC PATHOGENS DETECTED BY PCR... Complete Procedures * 03/26/17 -LP . Assessment and Plan Disease Oriented Problem List: (1) Acute metabolic encephalopathy (2) Pneumonia (3) Sepsis (4) Rheumatoid arthritis (5) Physical deconditioning Symptom Scale: (1) Debility 0-10 Scale: Unable to quantify (2) Pain 0-10 Scale: Unable to quantify Pertinent Non-Medical Issues Psychosocial: Patient was born and raised in [place], lived in [place] for some time, she now lives in [place] with her fianc and her daughter Karolina, age 22. Patient is . 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 Highest level of education is high school. Spiritual: Rastafari heidi, welcomes garage hand support. Legal: No advance directives completed. Ethical issues impacting care: No ethical issues identified. . Important Contacts Karolina, daughter: [phone] Jemima, mother: [phone] mini Tim: [phone] . Prognosis Mrs. Harris is a 46-year-old female with a medical history significant for rheumatoid arthritis, diabetes mellitus, hypertension, seizure activity, OA and history of CVA. Patient currently admitted secondary to sepsis, pneumonia. Recent acute hospitalization in November 2016 secondary to encephalitis, bilateral lower lobe cellulitis and C. difficile colitis. Patient with progressive decline, worsen since November 2016. Patient at high risk for further complications, are aggressive decline and given general debility, multiple ongoing chronic comorbidities, autoimmune disorders and underlying immunocompromise state. . Code Status: No Code Plan * CODE STATUS: DNR/DNI. * HEALTHCARE DECISION-MAKING: Patient participating in medical decision-making, intermittent confusion but easily reoriented. Patient appears to have a fair understanding of her clinical condition and prognosis. No advance directives completed. As per [place] statute, healthcare proxy decision-making falls to patient's only daughter Karolina Harris. Daughter is supported by patient's mother Jemima and gabriel Tim. Palliative care recommends shared decision- making with daughter given the above. * GOALS OF CARE: Patient and family electing comfort-directed care with hospice. Goal is for patient to be discharged to hospice care center for symptom management. * SYMPTOMS: = Pain, acute on chronic. Secondary to RA, chronic debility, bed/ chair bedbound status, colitis. Neurontin and baclofen reinstated yesterday. = Debility: Progressive. Worsen since acute hospitalization in November 2016. Likely to continue to worsen. * Case discussed with hospice admissions nurse Valencia. * Palliative care contact information has been provided to patient and family. . Time Spent Total Floor Time (mins): 33 (Total time to include review medical records, physical exam, goals of care conversation with patient and family, case discussion with metal patternmaker apprentice Valencia.) >50% Counseling/Coord of Care: Yes Attestation To help prompt me to consider important information that might be impacting today's encounter and assessment, information from prior notes written by myself or my colleagues may have been "brought forward" into today's note. My signature on this note, however, is an attestation that I personally performed the exam, history, and/or decision-making noted today, and, unless otherwise indicated, the interactions with patient, family, and staff as well as the review of records all occurred today. I also attest that the listed assessment and stated plan reflect my best clinical judgment today based on the combination of historical information, prior notes, and today's exam/ interactions. When time spent is documented, it refers only to time spent today by the signer, or if indicated, combined time spent today by collaborating physician/nurse practitioner. Teri Carlin Mar 30, 2017 13:58
[2017-03-30] MEDS ORDERED: LEVA750T9 PO (14:07)
[2017-03-30] MEDS ORDERED: METR-1 PO (14:07)
[2017-03-30 16:03] VITALS: BP 139/68; PULSE 103; RESP 21; TEMP 98.8; O2SAT 95
[2017-04-02 16:37] LABS: OSMOTIC GAP 34 mOsm/kg (See Comment)
--- NOTE | 2017-04-02 23:14 | HM ---
Date Performed: 03/29/2017 Time Performed: 22:01:00 HOOKUP DATE: 03/29/17 10:01:00 PM Rosy ANALYSIS START TIME: 03/29/2017 10:06:00 PM ANALYSIS END TIME: 03/30/2017 5:45:50 PM PATIENT AGE: 46 PATIENT HEIGHT: 65 PATIENT WEIGHT: 126 DRUG LIST PATIENT DIAGNOSIS TEST NARRATIVE: The patient's average heart rate was 103 BPM. Heart rates greater than 120 BPM were noted 4% of the time. No episodes of bradycardia were noted. No pauses exceeding 2.0 se conds were noted. 1636 ventricular ectopics, which represented 1% of the total beat count, were n oted. The highest ventricular ectopic frequency occurred from 10:00 AM to 11:00 AM Fri. During this time 435 VE(s) occurred. Ventricular ectopics were observed as 1636 isolated beat(s) only. No coup lets or runs were noted. 3 supraventricular ectopics, which represented < 1% of the total beat co unt, were noted. The highest supraventricular ectopic frequency occurred from 01:00 AM to 02:00 AM F ri. During this time 3 SVE(s) occurred. No episodes of ST depression (defined as -1.0 mm or more ) were noted in channel 1. No episodes of ST depression (defined as -1.0 mm or more) were noted in c ramosnel 2. No episodes of ST depression (defined as -1.0 mm or more) were noted in channel 3. no diar y maintained TEST INTERPRETATION: Sinus rhythm Suprvantricular tachycardia PVCs no pause, no ventricular tachycardia observed There is no entry in the diary Signed by : Ted Santo
== END 2017-03-30 16:40 | disposition hospice, inpatient (51) | DRG 871 ==
LOC: NEPC 09:45 → NEDA 13:08 → HIMN 19:20 → N04A 03-23 15:22
PROVIDERS: ADMIT Hospitalist; ATTEND Hospitalist
PROC: 009U3ZX Drainage of Spinal Canal, Percutaneous Approach, Diagnostic (ICD-10-PCS; principal; 2017-03-26)
DX: A41.89 Other specified sepsis (principal); G93.41 Metabolic encephalopathy; I63.40 Cerebral infarction due to embolism of unspecified cerebral artery; G93.49 Other encephalopathy; E87.2 Acidosis; J18.9 Pneumonia, unspecified organism; E46 Unspecified protein-calorie malnutrition; E87.1 Hypo-osmolality and hyponatremia; I69.354 Hemiplegia and hemiparesis following cerebral infarction affecting left non-dominant side; M86.9 Osteomyelitis, unspecified; R47.01 Aphasia; M06.9 Rheumatoid arthritis, unspecified; E11.65 Type 2 diabetes mellitus with hyperglycemia; E83.39 Other disorders of phosphorus metabolism; Z68.20 Body mass index [BMI] 20.0-20.9, adult; E83.42 Hypomagnesemia; E87.6 Hypokalemia; G40.909 Epilepsy, unspecified, not intractable, without status epilepticus; G89.29 Other chronic pain; Z51.5 Encounter for palliative care; L60.1 Onycholysis; S91.202A Unspecified open wound of left great toe with damage to nail, initial encounter; R19.7 Diarrhea, unspecified; M19.90 Unspecified osteoarthritis, unspecified site; L08.9 Local infection of the skin and subcutaneous tissue, unspecified; I10 Essential (primary) hypertension; S90.212A Contusion of left great toe with damage to nail, initial encounter; M81.8 Other osteoporosis without current pathological fracture; T38.0X5S Adverse effect of glucocorticoids and synthetic analogues, sequela; Z79.52 Long term (current) use of systemic steroids; Z79.4 Long term (current) use of insulin; Z88.5 Allergy status to narcotic agent; Z88.8 Allergy status to other drugs, medicaments and biological substances
CPT/HCPCS: 36600; 62270; 70450; 70544; 70548; 70553; 71045; 72141; 73660; 73718; 74018; 74177; 76937; 77003; 80048; 80053; 80069; 81001; 82140; 82438; 82550; 82805; 82945; 82947; 82948; 83036; 83605; 83735; 84100; 84157; 84302; 84439; 84443; 84484; 84999; 85007; 85025; 85027; 85610; 85652; 85730; 86403; 87015; 87040; 87070; 87077; 87102; 87116; 87185; 87186; 87205; 87206; 87328; 87329; 87493; 87506; 87529; 87804; 89051; 93005; 93225; 93226; 93308; 95819; 96361; 96365; 96367; A9579; J0131; J0456; J0692; J1644; J1815; J2060; J2270; J2405; J3370; J3475; J3480; J7030; J7050; J7512; Q9963; Q9967